=== PATIENT | female | born 1960 | race Caucasian/White ===

== ENCOUNTER → 2019-07-29 15:58 | Outpatient (CLI) | payer OTHER, SELFPAY ==
--- NOTE | 2019-07-29 | DI.RAD.S_ITS ---
PROCEDURE: XR HIP W PEL IF DONE LT MIN 4V INDICATIONS: BILATERAL HIP PAIN TECHNIQUE: AP pelvis with lateral view(s) of the left and right hip(s). COMPARISON: None. FINDINGS: Bones: No fractures or dislocations. Pelvic ring appears intact. No suspicious bony lesions. Mild bilateral hip degeneration. Lower lumbar spondylosis. Soft tissues: The visualized bowel gas pattern is normal. No suspicious soft tissue calcifications. IMPRESSION: Mild bilateral hip degeneration, probably age-appropriate. If the patient's pain or other symptoms persist, consider further evaluation with MRI . Dictated by: Danny Mccullough M.D. on 07/29/2019 at 17:14 Approved by: Danny Mccullough M.D. on 07/29/2019 at 17:16
--- NOTE | 2019-07-29 | DI.RAD.S_ITS ---
PROCEDURE: XR LUMBAR SPINE 2-3V INDICATIONS: LOWER BACK PAIN TECHNIQUE: 3 views of the lumbar spine were acquired. COMPARISON: None. FINDINGS: Bones: No fracture or focal osseous destruction. Levoscoliosis centered at L3. Multilevel degenerative endplate sclerosis and spurring. Diffuse facet arthropathy. grade 1 retrolisthesis of L2 on L3, and grade 1 anterolisthesis of L4 on L5 and L5 on S1. Diffuse moderate narrowing of lumbar disc spaces. Soft tissues: Overlying bowel gas pattern is normal. No suspicious soft tissue calcifications. IMPRESSION: Multilevel moderate lumbar spondylosis and facet arthropathy. Levoscoliosis. Dictated by: Danny Mccullough M.D. on 07/29/2019 at 16:50 Approved by: Danny Mccullough M.D. on 07/29/2019 at 16:52
== END ==
PROVIDERS: PCP Family Medicine; Visit Provider Family Medicine
DX: M25.552 Pain in left hip (principal); M25.551 Pain in right hip; M16.0 Bilateral primary osteoarthritis of hip; M54.5 Low back pain; M47.816 Spondylosis without myelopathy or radiculopathy, lumbar region; M41.86 Other forms of scoliosis, lumbar region; M43.16 Spondylolisthesis, lumbar region; M43.17 Spondylolisthesis, lumbosacral region; M48.061 Spinal stenosis, lumbar region without neurogenic claudication
CPT/HCPCS: 72100; 73522

== ENCOUNTER → 2019-11-11 15:49 | Outpatient (CLI) | payer OTHER, SELFPAY ==
--- NOTE | 2019-11-11 | DI.MG.S_ITS ---
BILATERAL DIGITAL SCREENING MAMMOGRAM 3D/2D WITH CAD: 11/11/2019 CLINICAL: Routine screening. Family history of breast cancer. Comparison is made to exams dated: 10/19/2017 mammogram, 12/15/2015 mammogram - [facility], and 05/07/2014 mammogram - [facility]. The tissue of both breasts is heterogeneously dense. This may lower the sensitivity of mammography. Current study was also evaluated with a Computer Aided Detection (CAD) system. No significant masses, calcifications, or other findings are seen in either breast. There has been no significant interval change. IMPRESSION: NEGATIVE There is no mammographic evidence of malignancy. A 1 year screening mammogram is recommended. This exam was interpreted at Station ID: [id number]. NOTE: For mammograms, a report in lay terms will be sent to the patient. Approximately 15% of breast malignancies will not be visualized mammographically. In the management of a palpable breast mass, a negative mammogram must not discourage biopsy of a clinically suspicious lesion. Electronically Signed By: Louisa beckman/brian:11/11/2019 16:17:42 letter sent: Normal Exam ACR BI-RADS Category 1: Negative [id number]
== END ==
PROVIDERS: PCP Family Medicine; Referring Provider Family Medicine; Visit Provider Family Medicine
DX: Z12.31 Encounter for screening mammogram for malignant neoplasm of breast (principal); Z80.3 Family history of malignant neoplasm of breast
CPT/HCPCS: 77063; 77067

== ENCOUNTER → 2020-07-30 13:01 | Outpatient (CLI) | payer OTHER, SELFPAY ==
--- NOTE | 2020-07-30 | DI.MRI.S_ITS ---
PROCEDURE: MR HIP LT WO CON INDICATIONS: bilat hip pain TECHNIQUE: Noncontrast coronal T1 spin echo and STIR through the bony pelvis. Coronal and axial T2 fast spin echo with fat saturation, sagittal T1 spin echo, and oblique axial T2 fast spin echo with fat saturation through the hip. COMPARISON: None. FINDINGS: Image quality: Excellent. Bones and joints: No fracture identified. Sacroiliac joints are unremarkable in signal intensity. There is lower lumbar spondylosis and facet arthropathy. No pathologic hip joint effusion. No evidence of osteonecrosis. Tendons and ligaments: The gluteus medius and minimus tendons appear intact, without associated muscle atrophy. Minimal sub trochanteric bursal fluid/edema. Proximal iliotibial band intact. Iliopsoas tendon intact. Mild hamstring origin tendinopathy, technically age indeterminate The straight and reflected heads of the rectus femoris muscle origin appear intact Ligamentum teres appears intact where visualized. Labrum: Ill-defined macerated appearance of the anterosuperior labrum, in keeping with probably chronic/degenerative tear. There is mild partial-thickness adjacent chondral loss. The alpha angle of the femur is within normal limits at less than 55 degrees. Soft tissues: There is mild thickening and T2 hyperintense appearance at the insertion of the piriformis and obturator internus muscles. Quadratus femoris muscle normal. Proximal sciatic neurovascular bundle appears normal adjacent to the hamstring tendons. No free pelvic fluid. Bladder normal. Genitourinary structures and bowel loops appear normal where visualized. IMPRESSION: Anterosuperior labral tear which could be chronic/degenerative. Age-indeterminate mild hamstring origin tendinopathy. Low-grade strain at the insertion of the left piriformis and obturator internus muscles. Minimal left subtrochanteric bursal fluid/edema. Dictated by: Danny Mccullough M.D. on 07/30/2020 at 15:02 Approved by: Danny Mccullough M.D. on 07/30/2020 at 15:25
--- NOTE | 2020-07-30 | DI.MRI.S_ITS ---
PROCEDURE: MR LUMBAR SPINE WO CON INDICATIONS: lumbar radiculopathy TECHNIQUE: Noncontrast sagittal T1 spin echo and T2 fast echo, sagittal STIR, axial T1 and T2 fast spin echo through the lumbar spine. In cases with scoliosis, additional coronal T2 fast spin echo may be performed. COMPARISON: [facility], CR, XR LUMBAR SPINE 2-3V, 07/29/2019, 16:04. FINDINGS: Image quality: Excellent. Alignment and Curvature: There is minimal leftward scoliotic curvature at L3. There is trace retrolithesis of L3 on L4, trace anterolithesis of L3 on L4, Grade I anterolithesis of L4 on L5 and Grade I/II anterolithesis of L5 on S1. Bone Marrow: Marrow is of normal overall signal. Moerate reactive endplate changes are present at L4-5 No acute vertebral body compression fractures. Spinal Cord: Conus medullaris terminates at the L1 level. Visualized cord demonstrates normal signal and size. Paraspinous Soft Tissues: No paravertebral masses. L1-L2: Mild disc bulge with left posterior paracentral protrusion. Minimal indentation of the anterior thecal sac. No foraminal narrowing. L2-L3: Mild disc bulge with mild spinal stenosis. No foraminal narrowing. Facet and ligamentum flavum hypertrophy. L3-L4: Mild disc bulge with severe spinal stenosis. Facet and ligamentum flavum hypertrophy. Severe right foraminal narrowing with slight nerve root flattening. L4-L5: Mild disc bulge with severe spinal stenosis and canal compression. Facet and ligamentum flavum hypertrophy. Severe bilateral, left greater than right foraminal narrowing with slight nerve root flattening. L5-S1: Mild disc bulge with mild spinal stenosis. Facet and ligamentum flavum hypertrophy. Severe bilateral, left greater than right foraminal narrowing with mild nerve root flattening. IMPRESSION: 1. Multilevel degenerative chnages. 2. Multilevel spinal stenosis most severe at L3-4, L4-5 secondary to anterolithesis and facet/ligamentum flavum hypertrophy. 3. Mutlilevel foraminal narrowing most severe at L3-4, L4-5, L5-S1 secondary to facet arthropathy and anterolithesis. Dictated by: Olya Contreras M.D. on 07/30/2020 at 15:52 Approved by: Olya Contreras M.D. on 07/30/2020 at 16:16
--- NOTE | 2020-07-30 | DI.MRI.S_ITS ---
PROCEDURE: MR HIP RT WO CON INDICATIONS: bilat hip pain TECHNIQUE: Noncontrast coronal T1 spin echo and STIR through the bony pelvis. Coronal and axial T2 fast spin echo with fat saturation, sagittal T1 spin echo, and oblique axial T2 fast spin echo with fat saturation through the hip. COMPARISON: None. FINDINGS: Image quality: Excellent. Bones and joints: No fracture identified. Sacroiliac joints are unremarkable in signal intensity. There is lower lumbar spondylosis and facet arthropathy. No pathologic hip joint effusion. No evidence of osteonecrosis. Tendons and ligaments: The gluteus medius and minimus tendons appear intact, without associated muscle atrophy. Proximal iliotibial band intact. Iliopsoas tendon intact. Origin of the hamstring tendon is thickened and demonstrates T2 hyperintensity. The straight and reflected heads of the rectus femoris muscle origin appear intact Ligamentum teres appears intact where visualized. Labrum: Poorly defined macerated tear involving the anterosuperior and superior labrum. There is adjacent paralabral cyst measuring 7 mm seen on image 11/14 adjacent to the superior segment. There is adjacent partial-thickness chondral loss, subchondral sclerosis and spurring. The alpha angle of the femur is within normal limits at less than 55 degrees. Soft tissues: Visualized muscles demonstrate normal bulk and internal signal. Quadratus femoris muscle normal. Proximal sciatic neurovascular bundle appears normal adjacent to the hamstring tendons. No free pelvic fluid. Bladder normal. Genitourinary structures and bowel loops appear normal where visualized. IMPRESSION: Ill-defined anterosuperior labral tear with associated paralabral cyst. Age-indeterminate mild hamstring origin tendinopathy Dictated by: Danny Mccullough M.D. on 07/30/2020 at 14:52 Approved by: Danny Mccullough M.D. on 07/30/2020 at 15:02
== END ==
PROVIDERS: PCP Student in an Organized Health Care Education/Training Program; Referring Provider Family Medicine; Visit Provider Family Medicine
DX: M25.551 Pain in right hip (principal); M25.552 Pain in left hip; S73.191A Other sprain of right hip, initial encounter; S73.192A Other sprain of left hip, initial encounter; M25.851 Other specified joint disorders, right hip; M47.26 Other spondylosis with radiculopathy, lumbar region; M47.27 Other spondylosis with radiculopathy, lumbosacral region; M48.061 Spinal stenosis, lumbar region without neurogenic claudication; M48.07 Spinal stenosis, lumbosacral region; M43.16 Spondylolisthesis, lumbar region; M43.17 Spondylolisthesis, lumbosacral region
CPT/HCPCS: 72148; 73721

== ENCOUNTER 2020-09-01 15:15 | Outpatient (RCR) | payer OTHER, SELFPAY ==
--- NOTE | 2019-08-21 15:30 | PT.OIE ---
Current Diagnoses Osteoarthritis of hip, unspecified (08/21/19) Pain in right hip (08/21/19) Pain in left hip (08/21/19) Intervertebral disc disorders with myelopathy, lumbar region (08/21/19) Lumbago with sciatica, unspecified side (08/21/19) Visit Care Team Role Provider Type Jersey Price MD Attending Provider Physician Primary Care Provider Specialty: Family Practice Address: [address] [place] [address], [facility] [place], [place], [facility] Email: [email or web address] Physical Therapy Initial Evaluation PT-OP-A Visit Information Start: 08/21/19 15:30 Freq: Status: Active Protocol: Document 08/21/19 15:30 DCW (Rec: 08/21/19 17:32 DCW [id number]) Out-Patient Physical Therapy Visit Information Visit Information Visit Type Initial Evaluation Visit Start Time 13:45 Visit Stop Time 14:30 Total Visit Minutes 45 Visit Number 1 Number of CLINICAL LAB SPECIALIST Visits 0 Evaluation Information Evaluation Date 08/21/19 PT-OP-B Current Condition Start: 08/21/19 15:30 Freq: Status: Active Protocol: Document 08/21/19 15:30 DCW (Rec: 08/21/19 17:32 DCW [id number]) Current Condition History of Current Condition Onset Date Multi-year history Current Complaints low back and bilateral hip pain History of Current Condition Pt is a 58 year old female with a long history of low back and hip pain. Pt reports she has twice had a partial dislocation of her right hip, happening once in the 90s and once in the last decade. 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 Pt notes that this caused so much degeneration in my knees that when I was in my 30s, I couldn't go up and down stairs. Pt reports that since beginning Glucosamine and chondroitin, this has faded, and she is more mobile. She has recently been suffering an increase in bilateral posterior hip pain, especially with extended sitting, or trying to stand up after extended sitting. Pt also reports burning in the back of her hips, L>R. Pt reports that her PCP recently increased her Celebrex, which helped some, but just this past weekend, took a ferry to [place], and after sitting/ lying down for the trip, could barely walk off the ferry she was so stiff and sore. She is currently feeling improved, but everything just feels so tight. Prior Treatments and Tests Hip x-ray: IMPRESSION: Mild bilateral hip degeneration, probably age-appropriate. If the patient's pain or other symptoms persist, consider further evaluation with MRI. Per: Danny Mccullough M.D. on 08/2019 Lumbar x-ray: IMPRESSION: Multilevel moderate lumbar spondylosis and facet arthropathy. Levoscoliosis. Per: Danny Mccullough M.D. on 08/2019 Future Testing and Treatments Planned Possible further evaluation with MRI, per radiologist report PT-OP-C Subjective Start: 08/21/19 15:30 Freq: Status: Active Protocol: Document 08/21/19 15:30 DCW (Rec: 08/21/19 17:32 DCW [id number]) OP-PT Subjective Patient Comments Patient Comments It's more in the back of my hips than in my actual back. OP-PT Pain Assessment Pain Assessment Grid Paper Pain Assessment Grid Completed Yes Location Bilateral Posterior Lateral Hip Intensity 7 Scale Used Numeric (1 - 10) Description Burning,Sharp Description- Other Pain varies from 2-7/10 PT-OP-F Manual Assessment Start: 08/21/19 15:30 Freq: Status: Active Protocol: Document 08/21/19 15:30 DCW (Rec: 08/21/19 17:32 DCW [id number]) Manual Assessments Soft Tissue Assessment Soft Tissue Mobility Assessment Tenderness to palpation 2/4 - Pain with wincing: Bilateral QL, bilateral ITB, right hip adductors Tenderness to palpation 3/4 - Wincing and withdraw: Bilateral piriformis, bilateral psoas Moderate-sever tone along bilateral posterior, lateral, and anterior hips, L>R Joint Mobility Assessment Joint Mobility Assessment Apprehension on R with RAMONA, some clunking and report of pain with right labral grind test PT-OP-K Range of Motion Start: 08/21/19 15:30 Freq: Status: Active Protocol: Document 08/21/19 15:30 DCW (Rec: 08/21/19 17:32 DCW [id number]) Lumbar Spine Range of Motion Lumbar Spine Active Degrees Testing Position Standing Flexion 60 Extension 16 ROM Limitations Soft Tissue Tightness,Muscle Tone,Pain PT-OP-L Special Tests Start: 08/21/19 15:30 Freq: Status: Active Protocol: Document 08/21/19 15:30 DCW (Rec: 08/21/19 17:32 DCW [id number]) Special Tests Lumbar Spine Special Tests A-P Shearing Test Results Negative Standing Flexion Test Results Negative Straight Leg Raise Test Results Negative Slump Test Results Negative Manual Traction Test Results Negative Compression Test Results Negative Hip Special Tests Lateral SI Compression Test Results Negative Piriformis Test Results Positive bilaterally RAMONA Test Results Positive ipsilateral pain left , sudden severe apprehension on R PT-OP-M Strength Start: 08/21/19 15:30 Freq: Status: Active Protocol: Document 08/21/19 15:30 DCW (Rec: 08/21/19 17:32 DCW [id number]) Knee Strength Knee Manual Muscle Testing Bilateral Comments All LE MMT 5/5 bilaterally except: Left knee flexion 4-/5 PT-OP-Q Treatments Start: 08/21/19 15:30 Freq: Status: Active Protocol: Document 08/21/19 15:30 DCW (Rec: 08/21/19 17:32 DCW [id number]) Therapeutic Exercises Supine Exercises 1 Supine Exercise Name Piriformis stretch: Figure-4, [id number] shoulder Side bilateral PT-OP-T Assessment and Plan Start: 08/21/19 15:30 Freq: Status: Active Protocol: Document 08/21/19 15:30 DCW (Rec: 08/22/19 08:49 DCW [id number]) Physical Therapy Assessment Rehab Potential Rehabilitation Potential Good Evaluation Complexity Number of Personal Factors/Comorbidities 1-2 Number of Body Systems Impaired 3 Clinical Presentation at Evaluation Evolving Impairments Impairments Activity Tolerance,Functional Activities,Pain,ROM,Strength, Tone Goals Three Impairment Pt unable to go out dancing with her Care Home Goal (LTG) Pt to tolerate dancing for 45 minutes without increasing her pain LTG Duration 10/23/19 Two Impairment Pt unable to sit in her car longer than 20 minutes without severe pain Grinder Set Up Operator Jig Goal (LTG) Pt to tolerate sitting in her car for 60 minutes with pain < 4/10 LTG Duration 10/23/19 One Impairment Pt does not have an appropriate HEP Short Term Goal (STG) Pt to be independent and compliant with an appropriate HEP STG Duration 09/22/19 Assessment Summary Assessment Pt presents to her physical therapy evaluation with moderate-severe hypertonia in her piriformis, QL, psoas, and ITB bilaterally. 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 Additionally, pt has multilevel moderate lumbar spondylosis and facet arthropathy, as well as levoscoliosis, per her lumbar x-rays. Pt's pain complaints and radicular symptoms appear to be more consistent with piriformis syndrome, however this piriformis tightness is likely a secondary effect from her hip and lumbar disorders. Stabilizing her hips and lumbar spine with hip and core strengthening, as well as using STM to decrease piriformis, psoas, QL, and ITB tone, should help improve pt' s ability to tolerate sitting for increased periods of time and allow her to return to dancing. There is some concern , however that with her history of dislocation, and her positive apprehension and labral grind tests, that there may be some underlying damage to her right labrum. If pt does not respond well to conservative treatment, she may benefit in the future from an MRI to assess integrity of her right hip. Physical Therapy Plan Frequency and Duration Frequency of Treatment 2x/Week Duration of Treatment 12 weeks Plan of Care Start Date 08/21/19 Plan of Care End Date 11/13/19 Therapeutic Interventions Therapeutic Interventions Aquatic Therapy,Home Exercise Program,Joint Mobilizations, Manual Therapy,Patient/ Caregiver Education,Self-Care/ Home Management,Soft Tissue Mobilization,Therapeutic Activities,Therapeutic Exercises Modalities Cold Pack/Ice Massage,Electric Stimulation,Hot Packs, Traction- Mechanical, Ultrasound Next Visit Focus/Plan Next Note Type Treatment Note Next Visit Plan Flexibility, STM, manual traction
--- NOTE | 2019-08-25 13:00 | PT.OTN ---
Current Diagnoses Osteoarthritis of hip, unspecified (08/25/19) Pain in right hip (08/25/19) Pain in left hip (08/25/19) Intervertebral disc disorders with myelopathy, lumbar region (08/25/19) Lumbago with sciatica, unspecified side (08/25/19) Physical Therapy Treatment Note PT-OP-A Visit Information Start: 08/21/19 15:30 Freq: Status: Active Protocol: Document 08/25/19 12:18 SP (Rec: 08/25/19 16:02 SP [id number]) Out-Patient Physical Therapy Visit Information Visit Information Visit Type Treatment Note Visit Start Time 12:18 Visit Stop Time 13:00 Total Visit Minutes 42 Visit Number 2 Number of TOOL DIE MAKER Visits 1 PT-OP-B Current Condition Start: 08/21/19 15:30 Freq: Status: Active Protocol: Document 08/21/19 15:30 DCW (Rec: 08/21/19 17:32 DCW [id number]) Current Condition History of Current Condition Onset Date Multi-year history Current Complaints low back and bilateral hip pain History of Current Condition Pt is a 58 year old female with a long history of low back and hip pain. Pt reports she has twice had a partial dislocation of her right hip, happening once in the 90s and once in the last decade. 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 Pt notes that this caused so much degeneration in my knees that when I was in my 30s, I couldn't go up and down stairs. Pt reports that since beginning Glucosamine and chondroitin, this has faded, and she is more mobile. She has recently been suffering an increase in bilateral posterior hip pain, especially with extended sitting, or trying to stand up after extended sitting. Pt also reports burning in the back of her hips, L>R. Pt reports that her PCP recently increased her Celebrex, which helped some, but just this past weekend, took a ferry to [place], and after sitting/ lying down for the trip, could barely walk off the ferry she was so stiff and sore. She is currently feeling improved, but everything just feels so tight. Prior Treatments and Tests Hip x-ray: IMPRESSION: Mild bilateral hip degeneration, probably age-appropriate. If the patient's pain or other symptoms persist, consider further evaluation with MRI. Per: Danny Mccullough M.D. on 08/2019 Lumbar x-ray: IMPRESSION: Multilevel moderate lumbar spondylosis and facet arthropathy. Levoscoliosis. Per: Danny Mccullough M.D. on 08/2019 Future Testing and Treatments Planned Possible further evaluation with MRI, per radiologist report PT-OP-C Subjective Start: 08/21/19 15:30 Freq: Status: Active Protocol: Document 08/25/19 12:18 SP (Rec: 08/25/19 16:02 SP [id number]) OP-PT Subjective Patient Comments Patient Comments Pt stated isn't in as much pain pre PT, trialed cold shower head over LB pre PT and noted decreased pain 2/10 currently. PT-OP-F Manual Assessment Start: 08/21/19 15:30 Freq: Status: Active Protocol: Document 08/21/19 15:30 DCW (Rec: 08/21/19 17:32 DCW [id number]) Manual Assessments Soft Tissue Assessment Soft Tissue Mobility Assessment Tenderness to palpation 2/4 - Pain with wincing: Bilateral QL, bilateral ITB, right hip adductors Tenderness to palpation 3/4 - Wincing and withdraw: Bilateral piriformis, bilateral psoas Moderate-sever tone along bilateral posterior, lateral, and anterior hips, L>R Joint Mobility Assessment Joint Mobility Assessment Apprehension on R with RAMONA, some clunking and report of pain with right labral grind test PT-OP-K Range of Motion Start: 08/21/19 15:30 Freq: Status: Active Protocol: Document 08/21/19 15:30 DCW (Rec: 08/21/19 17:32 DCW [id number]) Lumbar Spine Range of Motion Lumbar Spine Active Degrees Testing Position Standing Flexion 60 Extension 16 ROM Limitations Soft Tissue Tightness,Muscle Tone,Pain PT-OP-L Special Tests Start: 08/21/19 15:30 Freq: Status: Active Protocol: Document 08/21/19 15:30 DCW (Rec: 08/21/19 17:32 DCW [id number]) Special Tests Lumbar Spine Special Tests A-P Shearing Test Results Negative Standing Flexion Test Results Negative Straight Leg Raise Test Results Negative Slump Test Results Negative Manual Traction Test Results Negative Compression Test Results Negative Hip Special Tests Lateral SI Compression Test Results Negative Piriformis Test Results Positive bilaterally RAMONA Test Results Positive ipsilateral pain left , sudden severe apprehension on R PT-OP-M Strength Start: 08/21/19 15:30 Freq: Status: Active Protocol: Document 08/21/19 15:30 DCW (Rec: 08/21/19 17:32 DCW [id number]) Knee Strength Knee Manual Muscle Testing Bilateral Comments All LE MMT 5/5 bilaterally except: Left knee flexion 4-/5 PT-OP-Q Treatments Start: 08/21/19 15:30 Freq: Status: Active Protocol: Document 08/25/19 12:18 SP (Rec: 08/25/19 16:02 SP [id number]) Therapeutic Exercises Supine Exercises single knee fall out Side bilateral Reps/Minutes 5 times x2 each side Comments cued slow pacing control with stable pelvis pelvic tilt/ neutral pelvis Reps/Minutes 5 sec hold x5 trans ab Supine Exercise Name drawing in trans ab Reps/Minutes 5 sec x10 Comments slow activation concentric/ eccentric facilitation 1 Supine Exercise Name Piriformis stretch: Figure-4, [id number] shoulder Side bilateral Reps/Minutes 60 Sitting Exercises PF stretch Sitting Exercise Name Piriformis stretch: Figure-4, [id number] shoulder Side bilateral Reps/Minutes 30 x2 Manual Therapy Treatment Soft Tissue Mobilization PF, glut med Body Location R>L Mobilization Type Cross-Friction,Sustained Pressure Intensity/Depth Moderate Body Position Sidelying Comments tolerated, warmed up area Joint Mobilizations R hip Direction inf/lat Grade II Body Position Supine Reps/Duration 2 min Comments tolerated good stretch PT-OP-T Assessment and Plan Start: 08/21/19 15:30 Freq: Status: Active Protocol: Document 08/25/19 12:18 SP (Rec: 08/25/19 16:02 SP [id number]) Physical Therapy Assessment Goals Three Impairment Pt unable to go out dancing with her Long-Term Goal (LTG) Pt to tolerate dancing for 45 minutes without increasing her pain LTG Duration 10/23/19 Two Impairment Pt unable to sit in her car longer than 20 minutes without severe pain Kettle Tender Goal (LTG) Pt to tolerate sitting in her car for 60 minutes with pain < 4/10 LTG Duration 10/23/19 One Impairment Pt does not have an appropriate HEP Short Term Goal (STG) Pt to be independent and compliant with an appropriate HEP STG Duration 09/22/19 Assessment Summary Assessment Tx focused on manual STMs, hip mobs and introduced core facilitation with neutral spine with cuing for proper form, no adverse reactions feels warmed up, not as cooled off as when arrived but not pain. TOOL DIE MAKER stated will leave time end of tx for cold modality if needed knowing good response at home when trialed. Provided hand outs for self recall. Physical Therapy Plan Frequency and Duration Frequency of Treatment 2x/Week Duration of Treatment 12 weeks Plan of Care Start Date 08/21/19 Plan of Care End Date 11/13/19 Therapeutic Interventions Therapeutic Interventions Aquatic Therapy,Home Exercise Program,Joint Mobilizations, Manual Therapy,Patient/ Caregiver Education,Self-Care/ Home Management,Soft Tissue Mobilization,Therapeutic Activities,Therapeutic Exercises Modalities Cold Pack/Ice Massage,Electric Stimulation,Hot Packs, Traction- Mechanical, Ultrasound Next Visit Focus/Plan Next Note Type Treatment Note Next Visit Plan Assess response to manual and initial HEP added last tx. Add self ball roll PF at wall. Continue per PT POC: Flexibility, STM, manual traction
--- NOTE | 2019-08-27 11:15 | PT.OTN ---
Current Diagnoses Osteoarthritis of hip, unspecified (08/27/19) Pain in right hip (08/27/19) Pain in left hip (08/27/19) Intervertebral disc disorders with myelopathy, lumbar region (08/27/19) Lumbago with sciatica, unspecified side (08/27/19) Physical Therapy Treatment Note PT-OP-A Visit Information Start: 08/21/19 15:30 Freq: Status: Active Protocol: Document 08/27/19 10:34 SP (Rec: 08/27/19 11:23 SP [id number]) Out-Patient Physical Therapy Visit Information Visit Information Visit Type Treatment Note Visit Start Time 10:34 Visit Stop Time 11:15 Total Visit Minutes 41 Visit Number 3 Number of LAST PATTERN GRADER Visits 2 PT-OP-B Current Condition Start: 08/21/19 15:30 Freq: Status: Active Protocol: Document 08/21/19 15:30 DCW (Rec: 08/21/19 17:32 DCW [id number]) Current Condition History of Current Condition Onset Date Multi-year history Current Complaints low back and bilateral hip pain History of Current Condition Pt is a 58 year old female with a long history of low back and hip pain. Pt reports she has twice had a partial dislocation of her right hip, happening once in the 90s and once in the last decade. 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 Pt notes that this caused so much degeneration in my knees that when I was in my 30s, I couldn't go up and down stairs. Pt reports that since beginning Glucosamine and chondroitin, this has faded, and she is more mobile. She has recently been suffering an increase in bilateral posterior hip pain, especially with extended sitting, or trying to stand up after extended sitting. Pt also reports burning in the back of her hips, L>R. Pt reports that her PCP recently increased her Celebrex, which helped some, but just this past weekend, took a ferry to [place], and after sitting/ lying down for the trip, could barely walk off the ferry she was so stiff and sore. She is currently feeling improved, but everything just feels so tight. Prior Treatments and Tests Hip x-ray: IMPRESSION: Mild bilateral hip degeneration, probably age-appropriate. If the patient's pain or other symptoms persist, consider further evaluation with MRI. Per: Danny Mccullough M.D. on 08/2019 Lumbar x-ray: IMPRESSION: Multilevel moderate lumbar spondylosis and facet arthropathy. Levoscoliosis. Per: Danny Mccullough M.D. on 08/2019 Future Testing and Treatments Planned Possible further evaluation with MRI, per radiologist report PT-OP-C Subjective Start: 08/21/19 15:30 Freq: Status: Active Protocol: Document 08/27/19 10:34 SP (Rec: 08/27/19 11:23 SP [id number]) OP-PT Subjective Patient Comments Patient Comments Pt stated no adverse reactions to last tx, incorporating HEP instructed last tx. Pt stated was able to go for a walk with slight incline/descline train at park but did not do the hills. PT-OP-F Manual Assessment Start: 08/21/19 15:30 Freq: Status: Active Protocol: Document 08/21/19 15:30 DCW (Rec: 08/21/19 17:32 DCW [id number]) Manual Assessments Soft Tissue Assessment Soft Tissue Mobility Assessment Tenderness to palpation 2/4 - Pain with wincing: Bilateral QL, bilateral ITB, right hip adductors Tenderness to palpation 3/4 - Wincing and withdraw: Bilateral piriformis, bilateral psoas Moderate-sever tone along bilateral posterior, lateral, and anterior hips, L>R Joint Mobility Assessment Joint Mobility Assessment Apprehension on R with RAMONA, some clunking and report of pain with right labral grind test PT-OP-K Range of Motion Start: 08/21/19 15:30 Freq: Status: Active Protocol: Document 08/21/19 15:30 DCW (Rec: 08/21/19 17:32 DCW [id number]) Lumbar Spine Range of Motion Lumbar Spine Active Degrees Testing Position Standing Flexion 60 Extension 16 ROM Limitations Soft Tissue Tightness,Muscle Tone,Pain PT-OP-L Special Tests Start: 08/21/19 15:30 Freq: Status: Active Protocol: Document 08/21/19 15:30 DCW (Rec: 08/21/19 17:32 DCW [id number]) Special Tests Lumbar Spine Special Tests A-P Shearing Test Results Negative Standing Flexion Test Results Negative Straight Leg Raise Test Results Negative Slump Test Results Negative Manual Traction Test Results Negative Compression Test Results Negative Hip Special Tests Lateral SI Compression Test Results Negative Piriformis Test Results Positive bilaterally RAMONA Test Results Positive ipsilateral pain left , sudden severe apprehension on R PT-OP-M Strength Start: 08/21/19 15:30 Freq: Status: Active Protocol: Document 08/21/19 15:30 DCW (Rec: 08/21/19 17:32 DCW [id number]) Knee Strength Knee Manual Muscle Testing Bilateral Comments All LE MMT 5/5 bilaterally except: Left knee flexion 4-/5 PT-OP-Q Treatments Start: 08/21/19 15:30 Freq: Status: Active Protocol: Document 08/27/19 10:34 SP (Rec: 08/27/19 11:23 SP [id number]) Cardio Equipment Recumbent Bicycle Duration (Minutes) 6 Resistance 6 Seat Position 4 Therapeutic Exercises Supine Exercises Bryce stretch Side bilateral Reps/Minutes 30 x3 SLR Side bilateral Reps/Minutes 2x10 single knee fall out Side bilateral Resistance #1 TB Reps/Minutes AROM x10, TB 10 x2 each side Comments cued slow pacing control with stable pelvis pelvic tilt/ neutral pelvis Reps/Minutes 5 sec hold x5 Other Exercises self STM ball roll to TFL, GLUT Side left Equipment Used at wall Reps/Minutes 2 min PT-OP-T Assessment and Plan Start: 08/21/19 15:30 Freq: Status: Active Protocol: Document 08/27/19 10:34 SP (Rec: 08/27/19 11:23 SP [id number]) Physical Therapy Assessment Goals Three Impairment Pt unable to go out dancing with her Aerobics Teacher Goal (LTG) Pt to tolerate dancing for 45 minutes without increasing her pain LTG Duration 10/23/19 Two Impairment Pt unable to sit in her car longer than 20 minutes without severe pain Mcfp Goal (LTG) Pt to tolerate sitting in her car for 60 minutes with pain < 4/10 LTG Duration 10/23/19 One Impairment Pt does not have an appropriate HEP Short Term Goal (STG) Pt to be independent and compliant with an appropriate HEP STG Duration 09/22/19 Assessment Summary Assessment Tx focused on HEP review, added increased resistance to knee fall out and AROM SLR with cuing for core stability and progress in hip strengthening. Pt tolerated self STMs to TFL and PF at wall with tennis ball and Bryce stretch R>L secondary to little pinching anterior R hip during figure 4. Good response to treatment today, less tightness and able to move better than when arrived today. Physical Therapy Plan Frequency and Duration Frequency of Treatment 2x/Week Duration of Treatment 12 weeks Plan of Care Start Date 08/21/19 Plan of Care End Date 11/13/19 Therapeutic Interventions Therapeutic Interventions Aquatic Therapy,Home Exercise Program,Joint Mobilizations, Manual Therapy,Patient/ Caregiver Education,Self-Care/ Home Management,Soft Tissue Mobilization,Therapeutic Activities,Therapeutic Exercises Modalities Cold Pack/Ice Massage,Electric Stimulation,Hot Packs, Traction- Mechanical, Ultrasound Next Visit Focus/Plan Next Note Type Treatment Note Next Visit Plan Assess response to added TB to knee fall out, SLR, Bryce stretch and self ball roll PF at wall added last tx. Continue per PT POC: Flexibility, STM, manual traction
--- NOTE | 2019-09-01 08:15 | PT.OTN ---
Current Diagnoses Osteoarthritis of hip, unspecified (09/01/19) Pain in right hip (09/01/19) Pain in left hip (09/01/19) Intervertebral disc disorders with myelopathy, lumbar region (09/01/19) Lumbago with sciatica, unspecified side (09/01/19) Physical Therapy Treatment Note PT-OP-A Visit Information Start: 08/21/19 15:30 Freq: Status: Active Protocol: Document 09/01/19 07:31 SP (Rec: 09/01/19 09:24 SP [id number]) Out-Patient Physical Therapy Visit Information Visit Information Visit Type Treatment Note Visit Start Time 07:31 Visit Stop Time 08:15 Total Visit Minutes 44 Visit Number 4 Number of GYPSUM BLOCK SETTER Visits 3 PT-OP-B Current Condition Start: 08/21/19 15:30 Freq: Status: Active Protocol: Document 08/21/19 15:30 DCW (Rec: 08/21/19 17:32 DCW [id number]) Current Condition History of Current Condition Onset Date Multi-year history Current Complaints low back and bilateral hip pain History of Current Condition Pt is a 58 year old female with a long history of low back and hip pain. Pt reports she has twice had a partial dislocation of her right hip, happening once in the 90s and once in the last decade. 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 Pt notes that this caused so much degeneration in my knees that when I was in my 30s, I couldn't go up and down stairs. Pt reports that since beginning Glucosamine and chondroitin, this has faded, and she is more mobile. She has recently been suffering an increase in bilateral posterior hip pain, especially with extended sitting, or trying to stand up after extended sitting. Pt also reports burning in the back of her hips, L>R. Pt reports that her PCP recently increased her Celebrex, which helped some, but just this past weekend, took a ferry to [place], and after sitting/ lying down for the trip, could barely walk off the ferry she was so stiff and sore. She is currently feeling improved, but everything just feels so tight. Prior Treatments and Tests Hip x-ray: IMPRESSION: Mild bilateral hip degeneration, probably age-appropriate. If the patient's pain or other symptoms persist, consider further evaluation with MRI. Per: Danny Mccullough M.D. on 08/2019 Lumbar x-ray: IMPRESSION: Multilevel moderate lumbar spondylosis and facet arthropathy. Levoscoliosis. Per: Danny Mccullough M.D. on 08/2019 Future Testing and Treatments Planned Possible further evaluation with MRI, per radiologist report PT-OP-C Subjective Start: 08/21/19 15:30 Freq: Status: Active Protocol: Document 09/01/19 07:31 SP (Rec: 09/01/19 09:24 SP [id number]) OP-PT Subjective Patient Comments Patient Comments Pt stated was able to get out of bed last night for the first time with much less L hip pain but dog slept lower in the bed. Pt stated using 2 min cold end of shower on LB to assist decrease LBP first thing in the am. Pt stated went to see a performance and needed to get up and move around, could drive little further 30 min before needing to stopping on way to performance stretch/loosen up breaking up the drive. Pt was able to warm up pre PT today at home. PT-OP-F Manual Assessment Start: 08/21/19 15:30 Freq: Status: Active Protocol: Document 08/21/19 15:30 DCW (Rec: 08/21/19 17:32 DCW [id number]) Manual Assessments Soft Tissue Assessment Soft Tissue Mobility Assessment Tenderness to palpation 2/4 - Pain with wincing: Bilateral QL, bilateral ITB, right hip adductors Tenderness to palpation 3/4 - Wincing and withdraw: Bilateral piriformis, bilateral psoas Moderate-sever tone along bilateral posterior, lateral, and anterior hips, L>R Joint Mobility Assessment Joint Mobility Assessment Apprehension on R with RAMONA, some clunking and report of pain with right labral grind test PT-OP-K Range of Motion Start: 08/21/19 15:30 Freq: Status: Active Protocol: Document 08/21/19 15:30 DCW (Rec: 08/21/19 17:32 DCW [id number]) Lumbar Spine Range of Motion Lumbar Spine Active Degrees Testing Position Standing Flexion 60 Extension 16 ROM Limitations Soft Tissue Tightness,Muscle Tone,Pain PT-OP-L Special Tests Start: 08/21/19 15:30 Freq: Status: Active Protocol: Document 08/21/19 15:30 DCW (Rec: 08/21/19 17:32 DCW [id number]) Special Tests Lumbar Spine Special Tests A-P Shearing Test Results Negative Standing Flexion Test Results Negative Straight Leg Raise Test Results Negative Slump Test Results Negative Manual Traction Test Results Negative Compression Test Results Negative Hip Special Tests Lateral SI Compression Test Results Negative Piriformis Test Results Positive bilaterally RAMONA Test Results Positive ipsilateral pain left , sudden severe apprehension on R PT-OP-M Strength Start: 08/21/19 15:30 Freq: Status: Active Protocol: Document 08/21/19 15:30 DCW (Rec: 08/21/19 17:32 DCW [id number]) Knee Strength Knee Manual Muscle Testing Bilateral Comments All LE MMT 5/5 bilaterally except: Left knee flexion 4-/5 PT-OP-Q Treatments Start: 08/21/19 15:30 Freq: Status: Active Protocol: Document 09/01/19 07:31 SP (Rec: 09/01/19 09:24 SP [id number]) Therapeutic Exercises Supine Exercises bridge hip abd Resistance TB #1 Reps/Minutes 2x10 Bryce stretch Side bilateral Reps/Minutes 30 x3 SLR Side bilateral Reps/Minutes 2x10 1 Supine Exercise Name Piriformis stretch: Figure-4, [id number] shoulder Side bilateral Reps/Minutes 60 Standing Exercises hip elevation Standing Exercise Name hip hike elevation w/ hip abd Resistance AROM Reps/Minutes 5 Comments 2x5 Other Exercises self STM ball roll to TFL, GLUT Other Exercise Name glut, PF, QL Side left Equipment Used at wall Reps/Minutes 3 min Manual Therapy Treatment Soft Tissue Mobilization PF, glut med Body Location R>L Mobilization Type Cross-Friction,Sustained Pressure Intensity/Depth Moderate Body Position Sidelying Joint Mobilizations R hip Direction inf/lat Grade II Body Position Supine Reps/Duration 2 min Comments tolerated good stretch PT-OP-T Assessment and Plan Start: 08/21/19 15:30 Freq: Status: Active Protocol: Document 09/01/19 07:31 SP (Rec: 09/01/19 09:24 SP [id number]) Physical Therapy Assessment Goals Three Impairment Pt unable to go out dancing with her Mcfp Goal (LTG) Pt to tolerate dancing for 45 minutes without increasing her pain LTG Duration 2/6/20 Two Impairment Pt unable to sit in her car longer than 20 minutes without severe pain Mcfp Goal (LTG) Pt to tolerate sitting in her car for 60 minutes with pain < 4/10 LTG Duration 10/23/19 One Impairment Pt does not have an appropriate HEP Short Term Goal (STG) Pt to be independent and compliant with an appropriate HEP STG Duration 09/22/19 Assessment Summary Assessment Tx focused on HEP review, progressed bridge/hip abd TB from SKFO and hip elevation off step with report of muscle achy tiring but tolerable. Reviewed self STM to L QL/ glut for relief and positive response today. Good response to hip mobs, not as tight walking around end of tx. Physical Therapy Plan Frequency and Duration Frequency of Treatment 2x/Week Duration of Treatment 12 weeks Plan of Care Start Date 08/21/19 Plan of Care End Date 11/13/19 Therapeutic Interventions Therapeutic Interventions Aquatic Therapy,Home Exercise Program,Joint Mobilizations, Manual Therapy,Patient/ Caregiver Education,Self-Care/ Home Management,Soft Tissue Mobilization,Therapeutic Activities,Therapeutic Exercises Modalities Cold Pack/Ice Massage,Electric Stimulation,Hot Packs, Traction- Mechanical, Ultrasound Next Visit Focus/Plan Next Note Type Treatment Note Next Visit Plan Assess response to progressed hip strengthening: bridge and hip abd TB and hip hike elevation added last tx and self STM with ball at wall. Next tx add gym shuttle recovery, elliptical has at home to add to HEP. Continue per PT POC: Flexibility, STM, manual traction
--- NOTE | 2019-09-03 16:41 | PT.OTN ---
Current Diagnoses Osteoarthritis of hip, unspecified (09/03/19) Pain in right hip (09/03/19) Pain in left hip (09/03/19) Intervertebral disc disorders with myelopathy, lumbar region (09/03/19) Lumbago with sciatica, unspecified side (09/03/19) Physical Therapy Treatment Note PT-OP-A Visit Information Start: 08/21/19 15:30 Freq: Status: Active Protocol: Document 09/03/19 15:16 HH (Rec: 09/03/19 16:41 HH [id number]) Out-Patient Physical Therapy Visit Information Visit Information Visit Type Treatment Note Visit Start Time 15:16 Visit Stop Time 15:58 Total Visit Minutes 43 Visit Number 5 Number of PRUNER Visits 0 PT-OP-B Current Condition Start: 08/21/19 15:30 Freq: Status: Active Protocol: Document 08/21/19 15:30 DCW (Rec: 08/21/19 17:32 DCW [id number]) Current Condition History of Current Condition Onset Date Multi-year history Current Complaints low back and bilateral hip pain History of Current Condition Pt is a 58 year old female with a long history of low back and hip pain. Pt reports she has twice had a partial dislocation of her right hip, happening once in the 90s and once in the last decade. 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 Pt notes that this caused so much degeneration in my knees that when I was in my 30s, I couldn't go up and down stairs. Pt reports that since beginning Glucosamine and chondroitin, this has faded, and she is more mobile. She has recently been suffering an increase in bilateral posterior hip pain, especially with extended sitting, or trying to stand up after extended sitting. Pt also reports burning in the back of her hips, L>R. Pt reports that her PCP recently increased her Celebrex, which helped some, but just this past weekend, took a ferry to [place], and after sitting/ lying down for the trip, could barely walk off the ferry she was so stiff and sore. She is currently feeling improved, but everything just feels so tight. Prior Treatments and Tests Hip x-ray: IMPRESSION: Mild bilateral hip degeneration, probably age-appropriate. If the patient's pain or other symptoms persist, consider further evaluation with MRI. Per: Danny Mccullough M.D. on 08/2019 Lumbar x-ray: IMPRESSION: Multilevel moderate lumbar spondylosis and facet arthropathy. Levoscoliosis. Per: Danny Mccullough M.D. on 08/2019 Future Testing and Treatments Planned Possible further evaluation with MRI, per radiologist report PT-OP-C Subjective Start: 08/21/19 15:30 Freq: Status: Active Protocol: Document 09/03/19 15:16 HH (Rec: 09/03/19 16:41 HH [id number]) OP-PT Subjective Patient Comments Patient Comments Angeline been able to move as one unit to get out of bed without much hip pain. Angeline been consistent with home exercises and i am ready to learn some new ones. Patient Reported Progress Improving PT-OP-F Manual Assessment Start: 08/21/19 15:30 Freq: Status: Active Protocol: Document 08/21/19 15:30 DCW (Rec: 08/21/19 17:32 DCW [id number]) Manual Assessments Soft Tissue Assessment Soft Tissue Mobility Assessment Tenderness to palpation 2/4 - Pain with wincing: Bilateral QL, bilateral ITB, right hip adductors Tenderness to palpation 3/4 - Wincing and withdraw: Bilateral piriformis, bilateral psoas Moderate-sever tone along bilateral posterior, lateral, and anterior hips, L>R Joint Mobility Assessment Joint Mobility Assessment Apprehension on R with RAMONA, some clunking and report of pain with right labral grind test PT-OP-K Range of Motion Start: 08/21/19 15:30 Freq: Status: Active Protocol: Document 08/21/19 15:30 DCW (Rec: 08/21/19 17:32 DCW [id number]) Lumbar Spine Range of Motion Lumbar Spine Active Degrees Testing Position Standing Flexion 60 Extension 16 ROM Limitations Soft Tissue Tightness,Muscle Tone,Pain PT-OP-L Special Tests Start: 08/21/19 15:30 Freq: Status: Active Protocol: Document 08/21/19 15:30 DCW (Rec: 08/21/19 17:32 DCW [id number]) Special Tests Lumbar Spine Special Tests A-P Shearing Test Results Negative Standing Flexion Test Results Negative Straight Leg Raise Test Results Negative Slump Test Results Negative Manual Traction Test Results Negative Compression Test Results Negative Hip Special Tests Lateral SI Compression Test Results Negative Piriformis Test Results Positive bilaterally RAMONA Test Results Positive ipsilateral pain left , sudden severe apprehension on R PT-OP-M Strength Start: 08/21/19 15:30 Freq: Status: Active Protocol: Document 08/21/19 15:30 DCW (Rec: 08/21/19 17:32 DCW [id number]) Knee Strength Knee Manual Muscle Testing Bilateral Comments All LE MMT 5/5 bilaterally except: Left knee flexion 4-/5 PT-OP-Q Treatments Start: 08/21/19 15:30 Freq: Status: Active Protocol: Document 09/03/19 15:16 HH (Rec: 09/03/19 16:41 [id number]) Cardio Equipment Bicycle (Upright) Duration (Minutes) 10 Resistance 5 Therapeutic Exercises Supine Exercises deadbug Supine Exercise Name deadbug hold f/b slow marches Side bilateral Reps/Minutes 10 secs hold x 5 x2 Comments f/b slow marches, cues to reduce lumbar ext. bridge hip abd Resistance TB #1 Reps/Minutes 2x10 Comments cues to reduce lumbar extension SLR Side bilateral Reps/Minutes 2x10 Comments avoid reaching parallel to reduce lumbar compensation. Standing Exercises sliders Standing Exercise Name lateral slide Side bilateral Equipment Used slider Comments at athletic position crab walk Standing Exercise Name athletic position Side bilateral Equipment Used yellow band Reps/Minutes 20 ft x 3 Comments small steps Manual Therapy Treatment Soft Tissue Mobilization PF, glut med Body Location R>L Mobilization Type Cross-Friction,Sustained Pressure Intensity/Depth Moderate Body Position Sidelying Joint Mobilizations R hip Direction inf/lat Grade II Body Position Supine Reps/Duration 2 min Comments tolerated good stretch Manual Traction hip distraction Body Position Supine Reps/Duration 10 secs hold x 5 Comments reports of symptoms relief. PT-OP-T Assessment and Plan Start: 08/21/19 15:30 Freq: Status: Active Protocol: Document 09/03/19 15:16 (Rec: 09/03/19 16:41 [id number]) Physical Therapy Assessment Goals Three Impairment Pt unable to go out dancing with her Detention Goal (LTG) Pt to tolerate dancing for 45 minutes without increasing her pain LTG Duration 10/23/19 Two Impairment Pt unable to sit in her car longer than 20 minutes without severe pain Manager Commercial Sales Goal (LTG) Pt to tolerate sitting in her car for 60 minutes with pain < 4/10 LTG Duration 10/23/19 One Impairment Pt does not have an appropriate HEP Short Term Goal (STG) Pt to be independent and compliant with an appropriate HEP STG Duration 09/22/19 Assessment Summary Assessment Tx focused on trunk stability to minimize compensatory lumbar extension during SLR and briding. Added deadbug and crab to improve trunk stability. Pt also demonstrates good supine to sit with log roll technique. She also reports discomfort relief with hip distraction. Will cont to progress hip strength, stability and single leg balance training. Physical Therapy Plan Next Visit Focus/Plan Next Note Type Treatment Note Next Visit Plan Assess response to progressed hip strengthening: bridge and hip abd TB and hip hike elevation added last tx and self STM with ball at wall. Next tx add gym shuttle recovery, elliptical has at home to add to HEP. Continue per PT POC: Flexibility, STM, manual traction
--- NOTE | 2019-09-11 18:32 | PT.OTN ---
Current Diagnoses Osteoarthritis of hip, unspecified (09/11/19) Pain in right hip (09/11/19) Pain in left hip (09/11/19) Intervertebral disc disorders with myelopathy, lumbar region (09/11/19) Lumbago with sciatica, unspecified side (09/11/19) Physical Therapy Treatment Note PT-OP-A Visit Information Start: 08/21/19 15:30 Freq: Status: Active Protocol: Document 09/11/19 17:32 HH (Rec: 09/11/19 18:31 HH [id number]) Out-Patient Physical Therapy Visit Information Visit Information Visit Type Treatment Note Visit Start Time 17:32 Visit Stop Time 18:15 Total Visit Minutes 43 Visit Number 6 Number of FRAME OPERATOR Visits 0 PT-OP-B Current Condition Start: 08/21/19 15:30 Freq: Status: Active Protocol: Document 08/21/19 15:30 DCW (Rec: 08/21/19 17:32 DCW [id number]) Current Condition History of Current Condition Onset Date Multi-year history Current Complaints low back and bilateral hip pain History of Current Condition Pt is a 58 year old female with a long history of low back and hip pain. Pt reports she has twice had a partial dislocation of her right hip, happening once in the 90s and once in the last decade. 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 Pt notes that this caused so much degeneration in my knees that when I was in my 30s, I couldn't go up and down stairs. Pt reports that since beginning Glucosamine and chondroitin, this has faded, and she is more mobile. She has recently been suffering an increase in bilateral posterior hip pain, especially with extended sitting, or trying to stand up after extended sitting. Pt also reports burning in the back of her hips, L>R. Pt reports that her PCP recently increased her Celebrex, which helped some, but just this past weekend, took a ferry to [place], and after sitting/ lying down for the trip, could barely walk off the ferry she was so stiff and sore. She is currently feeling improved, but everything just feels so tight. Prior Treatments and Tests Hip x-ray: IMPRESSION: Mild bilateral hip degeneration, probably age-appropriate. If the patient's pain or other symptoms persist, consider further evaluation with MRI. Per: Danny Mccullough M.D. on 08/2019 Lumbar x-ray: IMPRESSION: Multilevel moderate lumbar spondylosis and facet arthropathy. Levoscoliosis. Per: Danny Mccullough M.D. on 08/2019 Future Testing and Treatments Planned Possible further evaluation with MRI, per radiologist report PT-OP-C Subjective Start: 08/21/19 15:30 Freq: Status: Active Protocol: Document 09/11/19 17:32 (Rec: 09/11/19 18:31 HH [id number]) OP-PT Subjective Patient Comments Patient Comments My R hip tweaked last Sunday which caused a lot of pain and i had to use a cane, but i was able to recover the following day. I felt fine for the past few days and able to sleep pretty good. PT-OP-F Manual Assessment Start: 08/21/19 15:30 Freq: Status: Active Protocol: Document 08/21/19 15:30 DCW (Rec: 08/21/19 17:32 DCW [id number]) Manual Assessments Soft Tissue Assessment Soft Tissue Mobility Assessment Tenderness to palpation 2/4 - Pain with wincing: Bilateral QL, bilateral ITB, right hip adductors Tenderness to palpation 3/4 - Wincing and withdraw: Bilateral piriformis, bilateral psoas Moderate-sever tone along bilateral posterior, lateral, and anterior hips, L>R Joint Mobility Assessment Joint Mobility Assessment Apprehension on R with RAMONA, some clunking and report of pain with right labral grind test PT-OP-K Range of Motion Start: 08/21/19 15:30 Freq: Status: Active Protocol: Document 08/21/19 15:30 DCW (Rec: 08/21/19 17:32 DCW [id number]) Lumbar Spine Range of Motion Lumbar Spine Active Degrees Testing Position Standing Flexion 60 Extension 16 ROM Limitations Soft Tissue Tightness,Muscle Tone,Pain PT-OP-L Special Tests Start: 08/21/19 15:30 Freq: Status: Active Protocol: Document 08/21/19 15:30 DCW (Rec: 08/21/19 17:32 DCW [id number]) Special Tests Lumbar Spine Special Tests A-P Shearing Test Results Negative Standing Flexion Test Results Negative Straight Leg Raise Test Results Negative Slump Test Results Negative Manual Traction Test Results Negative Compression Test Results Negative Hip Special Tests Lateral SI Compression Test Results Negative Piriformis Test Results Positive bilaterally RAMONA Test Results Positive ipsilateral pain left , sudden severe apprehension on R PT-OP-M Strength Start: 08/21/19 15:30 Freq: Status: Active Protocol: Document 08/21/19 15:30 DCW (Rec: 08/21/19 17:32 DCW [id number]) Knee Strength Knee Manual Muscle Testing Bilateral Comments All LE MMT 5/5 bilaterally except: Left knee flexion 4-/5 PT-OP-Q Treatments Start: 08/21/19 15:30 Freq: Status: Active Protocol: Document 09/11/19 17:32 (Rec: 09/11/19 18:31 [id number]) Cardio Equipment Bicycle (Upright) Duration (Minutes) 10 Resistance 5 Therapeutic Exercises Supine Exercises bridge hip abd Resistance yellow band Reps/Minutes 2x10 Comments cues to reduce lumbar extension single knee fall out Equipment Used yellow band Reps/Minutes 2 x 10 Standing Exercises standing hip abd with band Standing Exercise Name single leg hip hinge position Equipment Used yellow band Reps/Minutes 5 r x 2 Comments c/o increased hip discomfort. standing hip abd Standing Exercise Name without trunk lateral flexion Side bilateral Reps/Minutes 5 x2 Comments for HEP crab walk Standing Exercise Name athletic position Side bilateral Equipment Used yellow band Reps/Minutes 20 ft x 3 Comments small steps hip elevation Standing Exercise Name hip hike elevation w/ hip abd Equipment Used use mirror to cue Reps/Minutes 8 mins Comments cues to prevent hip drop Manual Therapy Treatment Soft Tissue Mobilization PF, glut med Body Location R>L Mobilization Type Cross-Friction,Sustained Pressure Intensity/Depth Moderate Body Position Sidelying Joint Mobilizations R hip Direction inf/lat Grade II Body Position Supine Reps/Duration 2 min Comments tolerated good stretch Manual Traction hip distraction Body Position Supine Reps/Duration 10 secs hold x 5 Comments reports of symptoms relief. PT-OP-T Assessment and Plan Start: 08/21/19 15:30 Freq: Status: Active Protocol: Document 09/11/19 17:32 (Rec: 09/11/19 18:31 [id number]) Physical Therapy Assessment Goals Three Impairment Pt unable to go out dancing with her Retirement Goal (LTG) Pt to tolerate dancing for 45 minutes without increasing her pain LTG Duration 10/23/19 Two Impairment Pt unable to sit in her car longer than 20 minutes without severe pain Retirement Goal (LTG) Pt to tolerate sitting in her car for 60 minutes with pain < 4/10 LTG Duration 10/23/19 One Impairment Pt does not have an appropriate HEP Short Term Goal (STG) Pt to be independent and compliant with an appropriate HEP STG Duration 09/22/19 Assessment Summary Assessment Tx focused on single leg stability and B hip stabilizers strengthening. Pt has difficulty maintaining equal hip level during single leg stance on R. Added standing hip hike with UE support and hip abd for HEP. Physical Therapy Plan Next Visit Focus/Plan Next Note Type Treatment Note Next Visit Plan Assess response to progressed hip strengthening: bridge and hip abd TB and hip hike elevation added last tx and self STM with ball at wall. Next tx add gym shuttle recovery, elliptical has at home to add to HEP. Continue per PT POC: Flexibility, STM, manual traction
--- NOTE | 2019-09-22 15:16 | PT.OTN ---
Current Diagnoses Osteoarthritis of hip, unspecified (09/22/19) Pain in right hip (09/22/19) Pain in left hip (09/22/19) Intervertebral disc disorders with myelopathy, lumbar region (09/22/19) Lumbago with sciatica, unspecified side (09/22/19) Physical Therapy Treatment Note PT-OP-A Visit Information Start: 08/21/19 15:30 Freq: Status: Active Protocol: Document 09/22/19 14:35 DCW (Rec: 09/22/19 15:16 DCW [id number]) Out-Patient Physical Therapy Visit Information Visit Information Visit Type Treatment Note Visit Note Arrived 5 minutes late Visit Start Time 14:35 Visit Stop Time 15:15 Total Visit Minutes 40 Visit Number 7 Number of PARA PROFESSIONAL Visits 0 Evaluation Information Evaluation Date 08/21/19 PT-OP-B Current Condition Start: 08/21/19 15:30 Freq: Status: Active Protocol: Document 08/21/19 15:30 DCW (Rec: 08/21/19 17:32 DCW [id number]) Current Condition History of Current Condition Onset Date Multi-year history Current Complaints low back and bilateral hip pain History of Current Condition Pt is a 58 year old female with a long history of low back and hip pain. Pt reports she has twice had a partial dislocation of her right hip, happening once in the 90s and once in the last decade. 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 Pt notes that this caused so much degeneration in my knees that when I was in my 30s, I couldn't go up and down stairs. Pt reports that since beginning Glucosamine and chondroitin, this has faded, and she is more mobile. She has recently been suffering an increase in bilateral posterior hip pain, especially with extended sitting, or trying to stand up after extended sitting. Pt also reports burning in the back of her hips, L>R. Pt reports that her PCP recently increased her Celebrex, which helped some, but just this past weekend, took a ferry to [place], and after sitting/ lying down for the trip, could barely walk off the ferry she was so stiff and sore. She is currently feeling improved, but everything just feels so tight. Prior Treatments and Tests Hip x-ray: IMPRESSION: Mild bilateral hip degeneration, probably age-appropriate. If the patient's pain or other symptoms persist, consider further evaluation with MRI. Per: Danny Mccullough M.D. on 08/2019 Lumbar x-ray: IMPRESSION: Multilevel moderate lumbar spondylosis and facet arthropathy. Levoscoliosis. Per: Danny Mccullough M.D. on 08/2019 Future Testing and Treatments Planned Possible further evaluation with MRI, per radiologist report PT-OP-C Subjective Start: 08/21/19 15:30 Freq: Status: Active Protocol: Document 09/22/19 14:35 DCW (Rec: 09/22/19 15:16 DCW [id number]) OP-PT Subjective Patient Comments Patient Comments Pt reports she didn't sleep well last night, just because she was so tight. Admits that she doesn't hit my home exercises every day, but I notice that I do better on the days that I do them. PT-OP-F Manual Assessment Start: 08/21/19 15:30 Freq: Status: Active Protocol: Document 08/21/19 15:30 DCW (Rec: 08/21/19 17:32 DCW [id number]) Manual Assessments Soft Tissue Assessment Soft Tissue Mobility Assessment Tenderness to palpation 2/4 - Pain with wincing: Bilateral QL, bilateral ITB, right hip adductors Tenderness to palpation 3/4 - Wincing and withdraw: Bilateral piriformis, bilateral psoas Moderate-sever tone along bilateral posterior, lateral, and anterior hips, L>R Joint Mobility Assessment Joint Mobility Assessment Apprehension on R with RAMONA, some clunking and report of pain with right labral grind test PT-OP-K Range of Motion Start: 08/21/19 15:30 Freq: Status: Active Protocol: Document 08/21/19 15:30 DCW (Rec: 08/21/19 17:32 DCW [id number]) Lumbar Spine Range of Motion Lumbar Spine Active Degrees Testing Position Standing Flexion 60 Extension 16 ROM Limitations Soft Tissue Tightness,Muscle Tone,Pain PT-OP-L Special Tests Start: 08/21/19 15:30 Freq: Status: Active Protocol: Document 08/21/19 15:30 DCW (Rec: 08/21/19 17:32 DCW [id number]) Special Tests Lumbar Spine Special Tests A-P Shearing Test Results Negative Standing Flexion Test Results Negative Straight Leg Raise Test Results Negative Slump Test Results Negative Manual Traction Test Results Negative Compression Test Results Negative Hip Special Tests Lateral SI Compression Test Results Negative Piriformis Test Results Positive bilaterally RAMONA Test Results Positive ipsilateral pain left , sudden severe apprehension on R PT-OP-M Strength Start: 08/21/19 15:30 Freq: Status: Active Protocol: Document 08/21/19 15:30 DCW (Rec: 08/21/19 17:32 DCW [id number]) Knee Strength Knee Manual Muscle Testing Bilateral Comments All LE MMT 5/5 bilaterally except: Left knee flexion 4-/5 PT-OP-Q Treatments Start: 08/21/19 15:30 Freq: Status: Active Protocol: Document 09/22/19 14:35 DCW (Rec: 09/22/19 15:16 DCW [id number]) Cardio Equipment Bicycle (Upright) Duration (Minutes) 5 Resistance 7 Seat Position 4 Therapeutic Exercises Supine Exercises Bryce stretch Side bilateral Reps/Minutes 30 x3 1 Supine Exercise Name Piriformis stretch: Figure-4 Side bilateral Reps/Minutes 60 Standing Exercises sliders Standing Exercise Name Skaters Side bilateral Resistance Green Equipment Used T-band, Slider Comments at athletic position crab walk Standing Exercise Name athletic position Side bilateral Resistance Green Equipment Used T-band Reps/Minutes 20 ft x 4 Comments small steps hip elevation Standing Exercise Name hip hike on step Manual Therapy Treatment Soft Tissue Mobilization Psoas Body Location R Psoas Mobilization Type Sustained Pressure Intensity/Depth Deep Body Position Supine PF, glut med Body Location R Glut Med, Piriformis, ITB Mobilization Type Cross-Friction,Sustained Pressure Intensity/Depth Moderate Body Position Sidelying Joint Mobilizations R hip Direction inf/lat Grade II Body Position Supine Reps/Duration 2 min Comments tolerated good stretch Manual Traction hip distraction Body Position Supine Reps/Duration 10 secs hold x 5 Comments reports of symptoms relief. PT-OP-T Assessment and Plan Start: 08/21/19 15:30 Freq: Status: Active Protocol: Document 09/22/19 14:35 DCW (Rec: 09/22/19 15:16 DCW [id number]) Physical Therapy Assessment Impairments Impairments Activity Tolerance,Functional Activities,Pain,ROM,Strength, Tone Goals Three Impairment Pt unable to go out dancing with her Correction Goal (LTG) Pt to tolerate dancing for 45 minutes without increasing her pain LTG Duration 10/23/19 Two Impairment Pt unable to sit in her car longer than 20 minutes without severe pain Correction Goal (LTG) Pt to tolerate sitting in her car for 60 minutes with pain < 4/10 LTG Duration 10/23/19 One Impairment Pt does not have an appropriate HEP Short Term Goal (STG) Pt to be independent and compliant with an appropriate HEP STG Duration 09/22/19 Assessment Summary Assessment Pt making improvement, still showing some decreased stability/strength in her right hip. Physical Therapy Plan Frequency and Duration Frequency of Treatment 2x/Week Duration of Treatment 12 weeks Plan of Care Start Date 08/21/19 Plan of Care End Date 11/13/19 Therapeutic Interventions Therapeutic Interventions Aquatic Therapy,Home Exercise Program,Joint Mobilizations, Manual Therapy,Patient/ Caregiver Education,Self-Care/ Home Management,Soft Tissue Mobilization,Therapeutic Activities,Therapeutic Exercises Modalities Cold Pack/Ice Massage,Electric Stimulation,Hot Packs, Traction- Mechanical, Ultrasound Next Visit Focus/Plan Next Note Type Treatment Note Next Visit Plan Assess response to progressed hip strengthening: bridge and hip abd TB and hip hike elevation added last tx and self STM with ball at wall. Next tx add gym shuttle recovery, elliptical has at home to add to HEP. Continue per PT POC: Flexibility, STM, manual traction
--- NOTE | 2019-09-24 13:10 | PT.OTN ---
Current Diagnoses Osteoarthritis of hip, unspecified (09/24/19) Pain in right hip (09/24/19) Pain in left hip (09/24/19) Intervertebral disc disorders with myelopathy, lumbar region (09/24/19) Lumbago with sciatica, unspecified side (09/24/19) Physical Therapy Treatment Note PT-OP-A Visit Information Start: 08/21/19 15:30 Freq: Status: Active Protocol: Document 09/24/19 12:25 SP (Rec: 09/24/19 13:11 SP [id number]) Out-Patient Physical Therapy Visit Information Visit Information Visit Type Treatment Note Visit Note Pt arrived 10 min late but still saw for full tx time. Visit Start Time 12:25 Visit Stop Time 13:10 Total Visit Minutes 45 Visit Number 8 Number of TEST PILOT Visits 1 PT-OP-B Current Condition Start: 08/21/19 15:30 Freq: Status: Active Protocol: Document 08/21/19 15:30 DCW (Rec: 08/21/19 17:32 DCW [id number]) Current Condition History of Current Condition Onset Date Multi-year history Current Complaints low back and bilateral hip pain History of Current Condition Pt is a 58 year old female with a long history of low back and hip pain. Pt reports she has twice had a partial dislocation of her right hip, happening once in the 90s and once in the last decade. 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 Pt notes that this caused so much degeneration in my knees that when I was in my 30s, I couldn't go up and down stairs. Pt reports that since beginning Glucosamine and chondroitin, this has faded, and she is more mobile. She has recently been suffering an increase in bilateral posterior hip pain, especially with extended sitting, or trying to stand up after extended sitting. Pt also reports burning in the back of her hips, L>R. Pt reports that her PCP recently increased her Celebrex, which helped some, but just this past weekend, took a ferry to [place], and after sitting/ lying down for the trip, could barely walk off the ferry she was so stiff and sore. She is currently feeling improved, but everything just feels so tight. Prior Treatments and Tests Hip x-ray: IMPRESSION: Mild bilateral hip degeneration, probably age-appropriate. If the patient's pain or other symptoms persist, consider further evaluation with MRI. Per: Danny Mccullough M.D. on 08/2019 Lumbar x-ray: IMPRESSION: Multilevel moderate lumbar spondylosis and facet arthropathy. Levoscoliosis. Per: Danny Mccullough M.D. on 08/2019 Future Testing and Treatments Planned Possible further evaluation with MRI, per radiologist report PT-OP-C Subjective Start: 08/21/19 15:30 Freq: Status: Active Protocol: Document 09/24/19 12:25 SP (Rec: 09/24/19 13:11 SP [id number]) OP-PT Subjective Patient Comments Patient Comments Pt stated L hip sore pre PT, manual STM and hip mobs last tx helped alot and wants to perform again today along with use of gym equipment and more core exercises for home. PT-OP-F Manual Assessment Start: 08/21/19 15:30 Freq: Status: Active Protocol: Document 08/21/19 15:30 DCW (Rec: 08/21/19 17:32 DCW [id number]) Manual Assessments Soft Tissue Assessment Soft Tissue Mobility Assessment Tenderness to palpation 2/4 - Pain with wincing: Bilateral QL, bilateral ITB, right hip adductors Tenderness to palpation 3/4 - Wincing and withdraw: Bilateral piriformis, bilateral psoas Moderate-sever tone along bilateral posterior, lateral, and anterior hips, L>R Joint Mobility Assessment Joint Mobility Assessment Apprehension on R with RAMONA, some clunking and report of pain with right labral grind test PT-OP-K Range of Motion Start: 08/21/19 15:30 Freq: Status: Active Protocol: Document 08/21/19 15:30 DCW (Rec: 08/21/19 17:32 DCW [id number]) Lumbar Spine Range of Motion Lumbar Spine Active Degrees Testing Position Standing Flexion 60 Extension 16 ROM Limitations Soft Tissue Tightness,Muscle Tone,Pain PT-OP-L Special Tests Start: 08/21/19 15:30 Freq: Status: Active Protocol: Document 08/21/19 15:30 DCW (Rec: 08/21/19 17:32 DCW [id number]) Special Tests Lumbar Spine Special Tests A-P Shearing Test Results Negative Standing Flexion Test Results Negative Straight Leg Raise Test Results Negative Slump Test Results Negative Manual Traction Test Results Negative Compression Test Results Negative Hip Special Tests Lateral SI Compression Test Results Negative Piriformis Test Results Positive bilaterally RAMONA Test Results Positive ipsilateral pain left , sudden severe apprehension on R PT-OP-M Strength Start: 08/21/19 15:30 Freq: Status: Active Protocol: Document 08/21/19 15:30 DCW (Rec: 08/21/19 17:32 DCW [id number]) Knee Strength Knee Manual Muscle Testing Bilateral Comments All LE MMT 5/5 bilaterally except: Left knee flexion 4-/5 PT-OP-Q Treatments Start: 08/21/19 15:30 Freq: Status: Active Protocol: Document 09/24/19 12:25 SP (Rec: 09/24/19 13:11 SP [id number]) Gym Equipment Shuttle Recovery Unlateral squat Resistance 50# Shuttle Recovery Platform Stable Reps/Time 2x10 alternate BLE bilateral squat Resistance 75# Shuttle Recovery Platform Stable Reps/Time 2x10 Therapeutic Exercises Supine Exercises 1 Supine Exercise Name Piriformis stretch: Figure-4 Side left Reps/Minutes 60 Sitting Exercises resisted shoulder ext Sitting Exercise Name reclined rear facing core pull down Resistance TB #1 Reps/Minutes 2x10 Comments cued seated front ball, reclined, chest lift, elbow straight pull down Standing Exercises chops lunge stance TB Side bilateral Resistance TB #1 Reps/Minutes x10 sliders Standing Exercise Name Skaters Side bilateral Resistance Green Equipment Used T-band, Slider Comments at athletic position Manual Therapy Treatment Soft Tissue Mobilization PF, glut med Body Location R Glut Med, Piriformis Mobilization Type Cross-Friction,Sustained Pressure Intensity/Depth Moderate Body Position Sidelying PT-OP-T Assessment and Plan Start: 08/21/19 15:30 Freq: Status: Active Protocol: Document 09/24/19 12:25 SP (Rec: 09/24/19 13:11 SP [id number]) Physical Therapy Assessment Goals Three Impairment Pt unable to go out dancing with her Systems Operator Goal (LTG) Pt to tolerate dancing for 45 minutes without increasing her pain LTG Duration 10/23/19 Two Impairment Pt unable to sit in her car longer than 20 minutes without severe pain [facility] Goal (LTG) Pt to tolerate sitting in her car for 60 minutes with pain < 4/10 LTG Duration 10/23/19 One Impairment Pt does not have an appropriate HEP Short Term Goal (STG) Pt to be independent and compliant with an appropriate HEP STG Duration 09/22/19 Assessment Summary Assessment Pt responded well HEP review sliders, added retro core pull downs and standing lunge chops along with gym equipment shuttle recovery B and SL for carrover to home on total gym . End of tx applied manual STM to L Piriformis and stretching to decrase pa in with positive results. Physical Therapy Plan Frequency and Duration Frequency of Treatment 2x/Week Duration of Treatment 12 weeks Plan of Care Start Date 08/21/19 Plan of Care End Date 11/13/19 Therapeutic Interventions Therapeutic Interventions Aquatic Therapy,Home Exercise Program,Joint Mobilizations, Manual Therapy,Patient/ Caregiver Education,Self-Care/ Home Management,Soft Tissue Mobilization,Therapeutic Activities,Therapeutic Exercises Modalities Cold Pack/Ice Massage,Electric Stimulation,Hot Packs, Traction- Mechanical, Ultrasound Next Visit Focus/Plan Next Note Type Treatment Note Next Visit Plan Assess response to added chops, resisted pull down and shuttle squats to be applied to her total gym. Next tx assess elliptical, spin and treadmill cardio to apply as at home to add to HEP . Continue per PT POC: Flexibility, STM, manual traction
--- NOTE | 2019-09-29 12:01 | PT.OTN ---
Current Diagnoses Osteoarthritis of hip, unspecified (09/29/19) Pain in right hip (09/29/19) Pain in left hip (09/29/19) Intervertebral disc disorders with myelopathy, lumbar region (09/29/19) Lumbago with sciatica, unspecified side (09/29/19) Physical Therapy Treatment Note PT-OP-A Visit Information Start: 08/21/19 15:30 Freq: Status: Active Protocol: Document 09/29/19 11:20 DCW (Rec: 09/29/19 12:01 DCW [id number]) Out-Patient Physical Therapy Visit Information Visit Information Visit Type Treatment Note Visit Note Arrived 5 minutes late Visit Start Time 11:20 Visit Stop Time 12:00 Total Visit Minutes 40 Visit Number 9 Number of INSURANCE ACCOUNT REPRESENTATIVE Visits 0 Evaluation Information Evaluation Date 08/21/19 PT-OP-B Current Condition Start: 08/21/19 15:30 Freq: Status: Active Protocol: Document 08/21/19 15:30 DCW (Rec: 08/21/19 17:32 DCW [id number]) Current Condition History of Current Condition Onset Date Multi-year history Current Complaints low back and bilateral hip pain History of Current Condition Pt is a 58 year old female with a long history of low back and hip pain. Pt reports she has twice had a partial dislocation of her right hip, happening once in the 90s and once in the last decade. 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 Pt notes that this caused so much degeneration in my knees that when I was in my 30s, I couldn't go up and down stairs. Pt reports that since beginning Glucosamine and chondroitin, this has faded, and she is more mobile. She has recently been suffering an increase in bilateral posterior hip pain, especially with extended sitting, or trying to stand up after extended sitting. Pt also reports burning in the back of her hips, L>R. Pt reports that her PCP recently increased her Celebrex, which helped some, but just this past weekend, took a ferry to [place], and after sitting/ lying down for the trip, could barely walk off the ferry she was so stiff and sore. She is currently feeling improved, but everything just feels so tight. Prior Treatments and Tests Hip x-ray: IMPRESSION: Mild bilateral hip degeneration, probably age-appropriate. If the patient's pain or other symptoms persist, consider further evaluation with MRI. Per: Danny Mccullough M.D. on 08/2019 Lumbar x-ray: IMPRESSION: Multilevel moderate lumbar spondylosis and facet arthropathy. Levoscoliosis. Per: Danny Mccullough M.D. on 08/2019 Future Testing and Treatments Planned Possible further evaluation with MRI, per radiologist report PT-OP-C Subjective Start: 08/21/19 15:30 Freq: Status: Active Protocol: Document 09/29/19 11:20 DCW (Rec: 09/29/19 12:01 DCW [id number]) OP-PT Subjective Patient Comments Patient Comments I think it is feeling somewhat better. Pt notes she has been waking up with less pain. PT-OP-F Manual Assessment Start: 08/21/19 15:30 Freq: Status: Active Protocol: Document 08/21/19 15:30 DCW (Rec: 08/21/19 17:32 DCW [id number]) Manual Assessments Soft Tissue Assessment Soft Tissue Mobility Assessment Tenderness to palpation 2/4 - Pain with wincing: Bilateral QL, bilateral ITB, right hip adductors Tenderness to palpation 3/4 - Wincing and withdraw: Bilateral piriformis, bilateral psoas Moderate-sever tone along bilateral posterior, lateral, and anterior hips, L>R Joint Mobility Assessment Joint Mobility Assessment Apprehension on R with RAMONA, some clunking and report of pain with right labral grind test PT-OP-K Range of Motion Start: 08/21/19 15:30 Freq: Status: Active Protocol: Document 08/21/19 15:30 DCW (Rec: 08/21/19 17:32 DCW [id number]) Lumbar Spine Range of Motion Lumbar Spine Active Degrees Testing Position Standing Flexion 60 Extension 16 ROM Limitations Soft Tissue Tightness,Muscle Tone,Pain PT-OP-L Special Tests Start: 08/21/19 15:30 Freq: Status: Active Protocol: Document 08/21/19 15:30 DCW (Rec: 08/21/19 17:32 DCW [id number]) Special Tests Lumbar Spine Special Tests A-P Shearing Test Results Negative Standing Flexion Test Results Negative Straight Leg Raise Test Results Negative Slump Test Results Negative Manual Traction Test Results Negative Compression Test Results Negative Hip Special Tests Lateral SI Compression Test Results Negative Piriformis Test Results Positive bilaterally RAMONA Test Results Positive ipsilateral pain left , sudden severe apprehension on R PT-OP-M Strength Start: 08/21/19 15:30 Freq: Status: Active Protocol: Document 08/21/19 15:30 DCW (Rec: 08/21/19 17:32 DCW [id number]) Knee Strength Knee Manual Muscle Testing Bilateral Comments All LE MMT 5/5 bilaterally except: Left knee flexion 4-/5 PT-OP-Q Treatments Start: 08/21/19 15:30 Freq: Status: Active Protocol: Document 09/29/19 11:20 DCW (Rec: 09/29/19 12:01 DCW [id number]) Cardio Equipment Bicycle (Upright) Duration (Minutes) 5 Resistance 7 Seat Position 4 Gym Equipment Shuttle Recovery Unlateral squat Resistance 50# Shuttle Recovery Platform Stable Reps/Time 2x10 alternate BLE bilateral squat Resistance 100# Shuttle Recovery Platform Stable Reps/Time 2x10 Therapeutic Exercises Standing Exercises sliders Standing Exercise Name Skaters Side bilateral Equipment Used Slider Reps/Minutes 2x10 Comments at athletic position crab walk Standing Exercise Name athletic position Side bilateral Resistance Green Equipment Used T-band Reps/Minutes 20 ft x 4 Comments small steps Manual Therapy Treatment Soft Tissue Mobilization Psoas Body Location R Psoas Mobilization Type Sustained Pressure Intensity/Depth Deep Body Position Supine PF, glut med Body Location R Glut Med, Piriformis Mobilization Type Cross-Friction,Sustained Pressure Intensity/Depth Moderate Body Position Sidelying Joint Mobilizations R hip Direction inf/lat Grade II Body Position Supine Manual Traction hip distraction Body Position Supine Reps/Duration 10 secs hold x 5 Comments reports of symptoms relief. PT-OP-T Assessment and Plan Start: 08/21/19 15:30 Freq: Status: Active Protocol: Document 09/29/19 11:20 DCW (Rec: 09/29/19 12:01 DCW [id number]) Physical Therapy Assessment Impairments Impairments Activity Tolerance,Functional Activities,Pain,ROM,Strength, Tone Goals Three Impairment Pt unable to go out dancing with her Detention Goal (LTG) Pt to tolerate dancing for 45 minutes without increasing her pain LTG Duration 10/23/19 Two Impairment Pt unable to sit in her car longer than 20 minutes without severe pain Detention Goal (LTG) Pt to tolerate sitting in her car for 60 minutes with pain < 4/10 LTG Duration 10/23/19 One Impairment Pt does not have an appropriate HEP Short Term Goal (STG) Pt to be independent and compliant with an appropriate HEP STG Duration 09/22/19 Assessment Summary Assessment Pt felt much better following treatment today, continues to exhibit hypertonia in posterior hip musculature. Physical Therapy Plan Frequency and Duration Frequency of Treatment 2x/Week Duration of Treatment 12 weeks Plan of Care Start Date 08/21/19 Plan of Care End Date 11/13/19 Therapeutic Interventions Therapeutic Interventions Aquatic Therapy,Home Exercise Program,Joint Mobilizations, Manual Therapy,Patient/ Caregiver Education,Self-Care/ Home Management,Soft Tissue Mobilization,Therapeutic Activities,Therapeutic Exercises Modalities Cold Pack/Ice Massage,Electric Stimulation,Hot Packs, Traction- Mechanical, Ultrasound Next Visit Focus/Plan Next Note Type Treatment Note Next Visit Plan Assess response to added chops, resisted pull down and shuttle squats to be applied to her total gym. Next tx assess elliptical, spin and treadmill cardio to apply as at home to add to HEP . Continue per PT POC: Flexibility, STM, manual traction
--- NOTE | 2019-10-06 12:02 | PT.OTN ---
Current Diagnoses Osteoarthritis of hip, unspecified (10/06/19) Pain in right hip (10/06/19) Pain in left hip (10/06/19) Intervertebral disc disorders with myelopathy, lumbar region (10/06/19) Lumbago with sciatica, unspecified side (10/06/19) Physical Therapy Treatment Note PT-OP-A Visit Information Start: 08/21/19 15:30 Freq: Status: Active Protocol: Document 10/06/19 11:20 DCW (Rec: 10/06/19 12:02 DCW [id number]) Out-Patient Physical Therapy Visit Information Visit Information Visit Type Treatment Note Visit Note Arrived 5 minutes late Visit Start Time 11:20 Visit Stop Time 12:00 Total Visit Minutes 40 Visit Number 10 Number of GREENHOUSE SUPERINTENDENT Visits 0 Evaluation Information Evaluation Date 08/21/19 PT-OP-B Current Condition Start: 08/21/19 15:30 Freq: Status: Active Protocol: Document 08/21/19 15:30 DCW (Rec: 08/21/19 17:32 DCW [id number]) Current Condition History of Current Condition Onset Date Multi-year history Current Complaints low back and bilateral hip pain History of Current Condition Pt is a 58 year old female with a long history of low back and hip pain. Pt reports she has twice had a partial dislocation of her right hip, happening once in the 90s and once in the last decade. 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 Pt notes that this caused so much degeneration in my knees that when I was in my 30s, I couldn't go up and down stairs. Pt reports that since beginning Glucosamine and chondroitin, this has faded, and she is more mobile. She has recently been suffering an increase in bilateral posterior hip pain, especially with extended sitting, or trying to stand up after extended sitting. Pt also reports burning in the back of her hips, L>R. Pt reports that her PCP recently increased her Celebrex, which helped some, but just this past weekend, took a ferry to [place], and after sitting/ lying down for the trip, could barely walk off the ferry she was so stiff and sore. She is currently feeling improved, but everything just feels so tight. Prior Treatments and Tests Hip x-ray: IMPRESSION: Mild bilateral hip degeneration, probably age-appropriate. If the patient's pain or other symptoms persist, consider further evaluation with MRI. Per: Danny Mccullough M.D. on 08/2019 Lumbar x-ray: IMPRESSION: Multilevel moderate lumbar spondylosis and facet arthropathy. Levoscoliosis. Per: Danny Mccullough M.D. on 08/2019 Future Testing and Treatments Planned Possible further evaluation with MRI, per radiologist report PT-OP-C Subjective Start: 08/21/19 15:30 Freq: Status: Active Protocol: Document 10/06/19 11:20 DCW (Rec: 10/06/19 12:02 DCW [id number]) OP-PT Subjective Patient Comments Patient Comments Physically there's some improvement, and I'm excited about that. I'm able to get out of bed without the extreme pain I had been having. PT-OP-F Manual Assessment Start: 08/21/19 15:30 Freq: Status: Active Protocol: Document 08/21/19 15:30 DCW (Rec: 08/21/19 17:32 DCW [id number]) Manual Assessments Soft Tissue Assessment Soft Tissue Mobility Assessment Tenderness to palpation 2/4 - Pain with wincing: Bilateral QL, bilateral ITB, right hip adductors Tenderness to palpation 3/4 - Wincing and withdraw: Bilateral piriformis, bilateral psoas Moderate-sever tone along bilateral posterior, lateral, and anterior hips, L>R Joint Mobility Assessment Joint Mobility Assessment Apprehension on R with RAMONA, some clunking and report of pain with right labral grind test PT-OP-K Range of Motion Start: 08/21/19 15:30 Freq: Status: Active Protocol: Document 08/21/19 15:30 DCW (Rec: 08/21/19 17:32 DCW [id number]) Lumbar Spine Range of Motion Lumbar Spine Active Degrees Testing Position Standing Flexion 60 Extension 16 ROM Limitations Soft Tissue Tightness,Muscle Tone,Pain PT-OP-L Special Tests Start: 08/21/19 15:30 Freq: Status: Active Protocol: Document 08/21/19 15:30 DCW (Rec: 08/21/19 17:32 DCW [id number]) Special Tests Lumbar Spine Special Tests A-P Shearing Test Results Negative Standing Flexion Test Results Negative Straight Leg Raise Test Results Negative Slump Test Results Negative Manual Traction Test Results Negative Compression Test Results Negative Hip Special Tests Lateral SI Compression Test Results Negative Piriformis Test Results Positive bilaterally RAMONA Test Results Positive ipsilateral pain left , sudden severe apprehension on R PT-OP-M Strength Start: 08/21/19 15:30 Freq: Status: Active Protocol: Document 08/21/19 15:30 DCW (Rec: 08/21/19 17:32 DCW [id number]) Knee Strength Knee Manual Muscle Testing Bilateral Comments All LE MMT 5/5 bilaterally except: Left knee flexion 4-/5 PT-OP-Q Treatments Start: 08/21/19 15:30 Freq: Status: Active Protocol: Document 10/06/19 11:20 DCW (Rec: 10/06/19 12:02 DCW [id number]) Cardio Equipment Bicycle (Upright) Duration (Minutes) 6 Resistance 7 Seat Position 4 Gym Equipment Shuttle Recovery Unlateral squat Resistance 50# Shuttle Recovery Platform Stable Reps/Time 2x10 alternate BLE bilateral squat Resistance 100# Shuttle Recovery Platform Unstable Reps/Time 2x10 Shuttle Balance Red Details Staggered, Lateral weight shift Therapeutic Exercises Standing Exercises sliders Standing Exercise Name Skaters Side bilateral Equipment Used Slider Reps/Minutes 2x10 Comments at athletic position crab walk Standing Exercise Name athletic position Side bilateral Resistance Green Equipment Used T-band Reps/Minutes 20 ft x 4 Comments small steps Manual Therapy Treatment Soft Tissue Mobilization Psoas Body Location R Psoas Mobilization Type Sustained Pressure Intensity/Depth Deep Body Position Supine PF, glut med Body Location R Glut Med, Piriformis Mobilization Type Cross-Friction,Sustained Pressure Intensity/Depth Moderate Body Position Sidelying PT-OP-T Assessment and Plan Start: 08/21/19 15:30 Freq: Status: Active Protocol: Document 10/06/19 11:20 DCW (Rec: 10/06/19 12:02 DCW [id number]) Physical Therapy Assessment Impairments Impairments Activity Tolerance,Functional Activities,Pain,ROM,Strength, Tone Goals Three Impairment Pt unable to go out dancing with her Induction Machine Setter Goal (LTG) Pt to tolerate dancing for 45 minutes without increasing her pain LTG Duration 10/23/19 Two Impairment Pt unable to sit in her car longer than 20 minutes without severe pain Assisted Goal (LTG) Pt to tolerate sitting in her car for 60 minutes with pain < 4/10 LTG Duration 10/23/19 One Impairment Pt does not have an appropriate HEP Short Term Goal (STG) Pt to be independent and compliant with an appropriate HEP STG Duration 09/22/19 Assessment Summary Assessment Pt improving overall, showing improved flexibility, strength , joint mobility, and knowledge of HEP. Continue with current program to assist with remaining stiffness and pain. Physical Therapy Plan Frequency and Duration Frequency of Treatment 2x/Week Duration of Treatment 12 weeks Plan of Care Start Date 08/21/19 Plan of Care End Date 11/13/19 Therapeutic Interventions Therapeutic Interventions Aquatic Therapy,Home Exercise Program,Joint Mobilizations, Manual Therapy,Patient/ Caregiver Education,Self-Care/ Home Management,Soft Tissue Mobilization,Therapeutic Activities,Therapeutic Exercises Modalities Cold Pack/Ice Massage,Electric Stimulation,Hot Packs, Traction- Mechanical, Ultrasound Next Visit Focus/Plan Next Note Type Treatment Note Next Visit Plan Assess response to added chops, resisted pull down and shuttle squats to be applied to her total gym. Next tx assess elliptical, spin and treadmill cardio to apply as at home to add to HEP . Continue per PT POC: Flexibility, STM, manual traction
--- NOTE | 2019-10-08 11:20 | PT.OTN ---
Current Diagnoses Osteoarthritis of hip, unspecified (10/08/19) Pain in right hip (10/08/19) Pain in left hip (10/08/19) Intervertebral disc disorders with myelopathy, lumbar region (10/08/19) Lumbago with sciatica, unspecified side (10/08/19) Physical Therapy Treatment Note PT-OP-A Visit Information Start: 08/21/19 15:30 Freq: Status: Active Protocol: Document 10/08/19 10:35 SP (Rec: 10/08/19 11:37 SP [id number]) Out-Patient Physical Therapy Visit Information Visit Information Visit Type Treatment Note Visit Start Time 10:35 Visit Stop Time 11:20 Total Visit Minutes 45 Visit Number 11 Number of R D MANAGER Visits 1 PT-OP-B Current Condition Start: 08/21/19 15:30 Freq: Status: Active Protocol: Document 08/21/19 15:30 DCW (Rec: 08/21/19 17:32 DCW [id number]) Current Condition History of Current Condition Onset Date Multi-year history Current Complaints low back and bilateral hip pain History of Current Condition Pt is a 58 year old female with a long history of low back and hip pain. Pt reports she has twice had a partial dislocation of her right hip, happening once in the 90s and once in the last decade. 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 Pt notes that this caused so much degeneration in my knees that when I was in my 30s, I couldn't go up and down stairs. Pt reports that since beginning Glucosamine and chondroitin, this has faded, and she is more mobile. She has recently been suffering an increase in bilateral posterior hip pain, especially with extended sitting, or trying to stand up after extended sitting. Pt also reports burning in the back of her hips, L>R. Pt reports that her PCP recently increased her Celebrex, which helped some, but just this past weekend, took a ferry to [place], and after sitting/ lying down for the trip, could barely walk off the ferry she was so stiff and sore. She is currently feeling improved, but everything just feels so tight. Prior Treatments and Tests Hip x-ray: IMPRESSION: Mild bilateral hip degeneration, probably age-appropriate. If the patient's pain or other symptoms persist, consider further evaluation with MRI. Per: Danny Mccullough M.D. on 08/2019 Lumbar x-ray: IMPRESSION: Multilevel moderate lumbar spondylosis and facet arthropathy. Levoscoliosis. Per: Danny Mccullough M.D. on 08/2019 Future Testing and Treatments Planned Possible further evaluation with MRI, per radiologist report PT-OP-C Subjective Start: 08/21/19 15:30 Freq: Status: Active Protocol: Document 10/08/19 10:35 SP (Rec: 10/08/19 11:37 SP [id number]) OP-PT Subjective Patient Comments Patient Comments Pt stated doing well, wants to review gym equipment to be able to use at home today, brought total gym log roper to refer to. PT-OP-F Manual Assessment Start: 08/21/19 15:30 Freq: Status: Active Protocol: Document 08/21/19 15:30 DCW (Rec: 08/21/19 17:32 DCW [id number]) Manual Assessments Soft Tissue Assessment Soft Tissue Mobility Assessment Tenderness to palpation 2/4 - Pain with wincing: Bilateral QL, bilateral ITB, right hip adductors Tenderness to palpation 3/4 - Wincing and withdraw: Bilateral piriformis, bilateral psoas Moderate-sever tone along bilateral posterior, lateral, and anterior hips, L>R Joint Mobility Assessment Joint Mobility Assessment Apprehension on R with RAMONA, some clunking and report of pain with right labral grind test PT-OP-K Range of Motion Start: 08/21/19 15:30 Freq: Status: Active Protocol: Document 08/21/19 15:30 DCW (Rec: 08/21/19 17:32 DCW [id number]) Lumbar Spine Range of Motion Lumbar Spine Active Degrees Testing Position Standing Flexion 60 Extension 16 ROM Limitations Soft Tissue Tightness,Muscle Tone,Pain PT-OP-L Special Tests Start: 08/21/19 15:30 Freq: Status: Active Protocol: Document 08/21/19 15:30 DCW (Rec: 08/21/19 17:32 DCW [id number]) Special Tests Lumbar Spine Special Tests A-P Shearing Test Results Negative Standing Flexion Test Results Negative Straight Leg Raise Test Results Negative Slump Test Results Negative Manual Traction Test Results Negative Compression Test Results Negative Hip Special Tests Lateral SI Compression Test Results Negative Piriformis Test Results Positive bilaterally RAMONA Test Results Positive ipsilateral pain left , sudden severe apprehension on R PT-OP-M Strength Start: 08/21/19 15:30 Freq: Status: Active Protocol: Document 08/21/19 15:30 DCW (Rec: 08/21/19 17:32 DCW [id number]) Knee Strength Knee Manual Muscle Testing Bilateral Comments All LE MMT 5/5 bilaterally except: Left knee flexion 4-/5 PT-OP-Q Treatments Start: 08/21/19 15:30 Freq: Status: Active Protocol: Document 10/08/19 10:35 SP (Rec: 10/08/19 11:37 SP [id number]) Cardio Equipment Elliptical Duration (Minutes) 5 Resistance 3 Other cued PPT Gym Equipment Shuttle Balance Red Details WBOS, NBOS head turns Comments cued wt BLE, glut facilitation , chest lift Therapeutic Ball oblique Exercise Details seated chop Ball Size/Color 65cm Body Position Sitting Reps/Duration 2x10 B Comments cued PPT seated pull down Exercise Details shld ext facing and retro facin Ball Size/Color 65cm Body Position Sitting Reps/Duration 2x10 each direction Comments Cued chest lift, PPT Therapeutic Exercises Standing Exercises single leg hip hinge Side bilateral Reps/Minutes 2x5 Comments cued level pelvis neutral spine (dowel initially) tap chair UE PT-OP-T Assessment and Plan Start: 08/21/19 15:30 Freq: Status: Active Protocol: Document 10/08/19 10:35 SP (Rec: 10/08/19 11:37 SP [id number]) Physical Therapy Assessment Goals Three Impairment Pt unable to go out dancing with her Penitentiary Goal (LTG) Pt to tolerate dancing for 45 minutes without increasing her pain LTG Duration 10/23/19 Two Impairment Pt unable to sit in her car longer than 20 minutes without severe pain Penitentiary Goal (LTG) Pt to tolerate sitting in her car for 60 minutes with pain < 4/10 LTG Duration 10/23/19 One Impairment Pt does not have an appropriate HEP Short Term Goal (STG) Pt to be independent and compliant with an appropriate HEP STG Duration 09/22/19 Assessment Summary Assessment Incorporated equatorial guinean ball UE resistancde today for home equipment use and how can use total gym marked on her log roper similar to ball postioning. Added hip hinge dowel standing , squat then single leg hip hinge using dowel for spinal alignment and cued awareness level pelvis to improve squat posture and glut med strengthening with improvement in balance. Increase NBOS on shuttle balance today and improved stability post glut squeeze cue. Unable to complete EC yet, trial next visit. No pain post tx it feels good, like the increased challenge. Physical Therapy Plan Frequency and Duration Frequency of Treatment 2x/Week Duration of Treatment 12 weeks Plan of Care Start Date 08/21/19 Plan of Care End Date 11/13/19 Therapeutic Interventions Therapeutic Interventions Aquatic Therapy,Home Exercise Program,Joint Mobilizations, Manual Therapy,Patient/ Caregiver Education,Self-Care/ Home Management,Soft Tissue Mobilization,Therapeutic Activities,Therapeutic Exercises Modalities Cold Pack/Ice Massage,Electric Stimulation,Hot Packs, Traction- Mechanical, Ultrasound Next Visit Focus/Plan Next Note Type Treatment Note Next Visit Plan Assess response to added seated SB with TB pull down/ oblique chop and single leg hip hinge. Next tx add shuttle balance NBOS EC. Next tx assess elliptical, spin and treadmill cardio to apply as at home to add to HEP . Continue per PT POC: Flexibility, STM, manual traction
--- NOTE | 2019-10-13 11:15 | PT.OTN ---
Current Diagnoses Osteoarthritis of hip, unspecified (10/13/19) Pain in right hip (10/13/19) Pain in left hip (10/13/19) Intervertebral disc disorders with myelopathy, lumbar region (10/13/19) Lumbago with sciatica, unspecified side (10/13/19) Physical Therapy Treatment Note PT-OP-A Visit Information Start: 08/21/19 15:30 Freq: Status: Active Protocol: Document 10/13/19 10:40 DCW (Rec: 10/13/19 11:15 DCW [id number]) Out-Patient Physical Therapy Visit Information Visit Information Visit Type Treatment Note Visit Note 10 min late Visit Start Time 10:40 Visit Stop Time 11:15 Total Visit Minutes 35 Visit Number 12 Number of TRANSFER CLERK Visits 0 Evaluation Information Evaluation Date 08/21/19 PT-OP-B Current Condition Start: 08/21/19 15:30 Freq: Status: Active Protocol: Document 08/21/19 15:30 DCW (Rec: 08/21/19 17:32 DCW [id number]) Current Condition History of Current Condition Onset Date Multi-year history Current Complaints low back and bilateral hip pain History of Current Condition Pt is a 58 year old female with a long history of low back and hip pain. Pt reports she has twice had a partial dislocation of her right hip, happening once in the 90s and once in the last decade. 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 Pt notes that this caused so much degeneration in my knees that when I was in my 30s, I couldn't go up and down stairs. Pt reports that since beginning Glucosamine and chondroitin, this has faded, and she is more mobile. She has recently been suffering an increase in bilateral posterior hip pain, especially with extended sitting, or trying to stand up after extended sitting. Pt also reports burning in the back of her hips, L>R. Pt reports that her PCP recently increased her Celebrex, which helped some, but just this past weekend, took a ferry to [place], and after sitting/ lying down for the trip, could barely walk off the ferry she was so stiff and sore. She is currently feeling improved, but everything just feels so tight. Prior Treatments and Tests Hip x-ray: IMPRESSION: Mild bilateral hip degeneration, probably age-appropriate. If the patient's pain or other symptoms persist, consider further evaluation with MRI. Per: Danny Mccullough M.D. on 08/2019 Lumbar x-ray: IMPRESSION: Multilevel moderate lumbar spondylosis and facet arthropathy. Levoscoliosis. Per: Danny Mccullough M.D. on 08/2019 Future Testing and Treatments Planned Possible further evaluation with MRI, per radiologist report PT-OP-C Subjective Start: 08/21/19 15:30 Freq: Status: Active Protocol: Document 10/13/19 10:40 DCW (Rec: 10/13/19 11:15 DCW [id number]) OP-PT Subjective Patient Comments Patient Comments There is progress that we've made that is sticking around, which I appreciate. I can get out of bed much more easily. PT-OP-F Manual Assessment Start: 08/21/19 15:30 Freq: Status: Active Protocol: Document 08/21/19 15:30 DCW (Rec: 08/21/19 17:32 DCW [id number]) Manual Assessments Soft Tissue Assessment Soft Tissue Mobility Assessment Tenderness to palpation 2/4 - Pain with wincing: Bilateral QL, bilateral ITB, right hip adductors Tenderness to palpation 3/4 - Wincing and withdraw: Bilateral piriformis, bilateral psoas Moderate-sever tone along bilateral posterior, lateral, and anterior hips, L>R Joint Mobility Assessment Joint Mobility Assessment Apprehension on R with RAMONA, some clunking and report of pain with right labral grind test PT-OP-K Range of Motion Start: 08/21/19 15:30 Freq: Status: Active Protocol: Document 08/21/19 15:30 DCW (Rec: 08/21/19 17:32 DCW [id number]) Lumbar Spine Range of Motion Lumbar Spine Active Degrees Testing Position Standing Flexion 60 Extension 16 ROM Limitations Soft Tissue Tightness,Muscle Tone,Pain PT-OP-L Special Tests Start: 08/21/19 15:30 Freq: Status: Active Protocol: Document 08/21/19 15:30 DCW (Rec: 08/21/19 17:32 DCW [id number]) Special Tests Lumbar Spine Special Tests A-P Shearing Test Results Negative Standing Flexion Test Results Negative Straight Leg Raise Test Results Negative Slump Test Results Negative Manual Traction Test Results Negative Compression Test Results Negative Hip Special Tests Lateral SI Compression Test Results Negative Piriformis Test Results Positive bilaterally RAMONA Test Results Positive ipsilateral pain left , sudden severe apprehension on R PT-OP-M Strength Start: 08/21/19 15:30 Freq: Status: Active Protocol: Document 08/21/19 15:30 DCW (Rec: 08/21/19 17:32 DCW [id number]) Knee Strength Knee Manual Muscle Testing Bilateral Comments All LE MMT 5/5 bilaterally except: Left knee flexion 4-/5 PT-OP-Q Treatments Start: 08/21/19 15:30 Freq: Status: Active Protocol: Document 10/13/19 10:40 DCW (Rec: 10/13/19 11:15 DCW [id number]) Cardio Equipment Bicycle (Upright) Duration (Minutes) 6 Resistance 7 Seat Position 4 Gym Equipment Shuttle Recovery Unlateral squat Resistance 62# Shuttle Recovery Platform Stable Reps/Time 2x10 alternate BLE bilateral squat Resistance 100# Shuttle Recovery Platform Unstable Reps/Time 2x10 Shuttle Balance Red Details Staggered, Lateral weight shift Therapeutic Ball Resisted Rotation Exercise Details Resisted trunk rotation Ball Size/Color Green - 65 cm Lv 2 T-band Body Position Sitting Therapeutic Exercises Standing Exercises crab walk Standing Exercise Name athletic position Side bilateral Resistance Green Equipment Used T-band Reps/Minutes 20 ft x 4 Comments small steps Manual Therapy Treatment Soft Tissue Mobilization Psoas Body Location R Psoas Mobilization Type Sustained Pressure Intensity/Depth Deep Body Position Supine PF, glut med Body Location R Glut Med, Piriformis Mobilization Type Cross-Friction,Sustained Pressure Intensity/Depth Moderate Body Position Sidelying PT-OP-T Assessment and Plan Start: 08/21/19 15:30 Freq: Status: Active Protocol: Document 10/13/19 10:40 DCW (Rec: 10/13/19 11:15 DCW [id number]) Physical Therapy Assessment Impairments Impairments Activity Tolerance,Functional Activities,Pain,ROM,Strength, Tone Goals Three Impairment Pt unable to go out dancing with her [facility] Goal (LTG) Pt to tolerate dancing for 45 minutes without increasing her pain LTG Duration 10/23/19 Two Impairment Pt unable to sit in her car longer than 20 minutes without severe pain Usp Goal (LTG) Pt to tolerate sitting in her car for 60 minutes with pain < 4/10 LTG Duration 10/23/19 One Impairment Pt does not have an appropriate HEP Short Term Goal (STG) Pt to be independent and compliant with an appropriate HEP STG Duration 09/22/19 Assessment Summary Assessment Continued with additional core strengthening, pt flexibility improving in right hip, continues to demonstrate some weakness in right vs left. Physical Therapy Plan Frequency and Duration Frequency of Treatment 2x/Week Duration of Treatment 12 weeks Plan of Care Start Date 08/21/19 Plan of Care End Date 11/13/19 Therapeutic Interventions Therapeutic Interventions Aquatic Therapy,Home Exercise Program,Joint Mobilizations, Manual Therapy,Patient/ Caregiver Education,Self-Care/ Home Management,Soft Tissue Mobilization,Therapeutic Activities,Therapeutic Exercises Modalities Cold Pack/Ice Massage,Electric Stimulation,Hot Packs, Traction- Mechanical, Ultrasound Next Visit Focus/Plan Next Note Type Treatment Note Next Visit Plan Assess response to added seated SB with TB pull down/ oblique chop and single leg hip hinge. Next tx add shuttle balance NBOS EC. Next tx assess elliptical, spin and treadmill cardio to apply as at home to add to HEP . Continue per PT POC: Flexibility, STM, manual traction
--- NOTE | 2019-10-15 09:45 | PT.OTN ---
Current Diagnoses Osteoarthritis of hip, unspecified (10/15/19) Pain in right hip (10/15/19) Pain in left hip (10/15/19) Intervertebral disc disorders with myelopathy, lumbar region (10/15/19) Lumbago with sciatica, unspecified side (10/15/19) Physical Therapy Treatment Note PT-OP-A Visit Information Start: 08/21/19 15:30 Freq: Status: Active Protocol: Document 10/15/19 09:06 SP (Rec: 10/15/19 11:51 SP [id number]) Out-Patient Physical Therapy Visit Information Visit Information Visit Type Treatment Note Visit Start Time 09:06 Visit Stop Time 09:45 Total Visit Minutes 39 Visit Number 13 Number of SEISMIC PROSPECTING SUPERVISOR Visits 1 PT-OP-B Current Condition Start: 08/21/19 15:30 Freq: Status: Active Protocol: Document 08/21/19 15:30 DCW (Rec: 08/21/19 17:32 DCW [id number]) Current Condition History of Current Condition Onset Date Multi-year history Current Complaints low back and bilateral hip pain History of Current Condition Pt is a 58 year old female with a long history of low back and hip pain. Pt reports she has twice had a partial dislocation of her right hip, happening once in the 90s and once in the last decade. 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 Pt notes that this caused so much degeneration in my knees that when I was in my 30s, I couldn't go up and down stairs. Pt reports that since beginning Glucosamine and chondroitin, this has faded, and she is more mobile. She has recently been suffering an increase in bilateral posterior hip pain, especially with extended sitting, or trying to stand up after extended sitting. Pt also reports burning in the back of her hips, L>R. Pt reports that her PCP recently increased her Celebrex, which helped some, but just this past weekend, took a ferry to [place], and after sitting/ lying down for the trip, could barely walk off the ferry she was so stiff and sore. She is currently feeling improved, but everything just feels so tight. Prior Treatments and Tests Hip x-ray: IMPRESSION: Mild bilateral hip degeneration, probably age-appropriate. If the patient's pain or other symptoms persist, consider further evaluation with MRI. Per: Danny Mccullough M.D. on 08/2019 Lumbar x-ray: IMPRESSION: Multilevel moderate lumbar spondylosis and facet arthropathy. Levoscoliosis. Per: Danny Mccullough M.D. on 08/2019 Future Testing and Treatments Planned Possible further evaluation with MRI, per radiologist report PT-OP-C Subjective Start: 08/21/19 15:30 Freq: Status: Active Protocol: Document 10/15/19 09:06 SP (Rec: 10/15/19 11:51 SP [id number]) OP-PT Subjective Patient Comments Patient Comments Pt reported stiff pre PT but able to use bathroom facilities without B hip pressure discomfort and able to get out of bed with decreased B hip pain, so much better. Patient Reported Progress Improving PT-OP-F Manual Assessment Start: 08/21/19 15:30 Freq: Status: Active Protocol: Document 08/21/19 15:30 DCW (Rec: 08/21/19 17:32 DCW [id number]) Manual Assessments Soft Tissue Assessment Soft Tissue Mobility Assessment Tenderness to palpation 2/4 - Pain with wincing: Bilateral QL, bilateral ITB, right hip adductors Tenderness to palpation 3/4 - Wincing and withdraw: Bilateral piriformis, bilateral psoas Moderate-sever tone along bilateral posterior, lateral, and anterior hips, L>R Joint Mobility Assessment Joint Mobility Assessment Apprehension on R with RAMONA, some clunking and report of pain with right labral grind test PT-OP-K Range of Motion Start: 08/21/19 15:30 Freq: Status: Active Protocol: Document 08/21/19 15:30 DCW (Rec: 08/21/19 17:32 DCW [id number]) Lumbar Spine Range of Motion Lumbar Spine Active Degrees Testing Position Standing Flexion 60 Extension 16 ROM Limitations Soft Tissue Tightness,Muscle Tone,Pain PT-OP-L Special Tests Start: 08/21/19 15:30 Freq: Status: Active Protocol: Document 08/21/19 15:30 DCW (Rec: 08/21/19 17:32 DCW [id number]) Special Tests Lumbar Spine Special Tests A-P Shearing Test Results Negative Standing Flexion Test Results Negative Straight Leg Raise Test Results Negative Slump Test Results Negative Manual Traction Test Results Negative Compression Test Results Negative Hip Special Tests Lateral SI Compression Test Results Negative Piriformis Test Results Positive bilaterally RAMONA Test Results Positive ipsilateral pain left , sudden severe apprehension on R PT-OP-M Strength Start: 08/21/19 15:30 Freq: Status: Active Protocol: Document 08/21/19 15:30 DCW (Rec: 08/21/19 17:32 DCW [id number]) Knee Strength Knee Manual Muscle Testing Bilateral Comments All LE MMT 5/5 bilaterally except: Left knee flexion 4-/5 PT-OP-Q Treatments Start: 08/21/19 15:30 Freq: Status: Active Protocol: Document 10/15/19 09:06 SP (Rec: 10/15/19 11:51 SP [id number]) Cardio Equipment Elliptical Duration (Minutes) 6 Resistance 5 Other cued PPT/ upright posture Gym Equipment Shuttle Balance Red Details NBOS, Staggered, Lateral weight shift Comments Cued BLe wt COG over [place], glut facil, knee more extension ( head turns,EC) Therapeutic Exercises Supine Exercises Bryce stretch Side bilateral Reps/Minutes 30 x3 Standing Exercises hip flex lunge stretch Standing Exercise Name prox quad, psoas/iliacus Side right Reps/Minutes 30 x3 single leg hip hinge Side bilateral Reps/Minutes 2x5 Comments cued level pelvis neutral spine (dowel initially) tap chair UE Manual Therapy Treatment Soft Tissue Mobilization Psoas Body Location R Psoas, iliacus Mobilization Type Sustained Pressure Intensity/Depth Deep Body Position Supine Joint Mobilizations R hip Direction inf/lat Grade II Body Position Supine PT-OP-T Assessment and Plan Start: 08/21/19 15:30 Freq: Status: Active Protocol: Document 10/15/19 09:06 SP (Rec: 10/15/19 11:51 SP [id number]) Physical Therapy Assessment Goals Three Impairment Pt unable to go out dancing with her Senior Living Goal (LTG) Pt to tolerate dancing for 45 minutes without increasing her pain LTG Duration 10/23/19 Two Impairment Pt unable to sit in her car longer than 20 minutes without severe pain Mail Handler Assistant Goal (LTG) Pt to tolerate sitting in her car for 60 minutes with pain < 4/10 LTG Duration 10/23/19 One Impairment Pt does not have an appropriate HEP Short Term Goal (STG) Pt to be independent and compliant with an appropriate HEP STG Duration 09/22/19 Assessment Summary Assessment Tx focused on elliptical proper use with back alignment for home use + feedback, stretching and manual STMs to anterior R hip and added hip flex stretch lunge stretch + feedback. Cued for SL hip hinge HEP review with cue for level pelvis and knee stability improved in demonstration. Pt was ableto improve shuttle balance today head turns and EC NBOS with glut activation cuing for decrease lateral shifting movement control. Pt had + results with hip mobs as well. Physical Therapy Plan Frequency and Duration Frequency of Treatment 2x/Week Duration of Treatment 12 weeks Plan of Care Start Date 08/21/19 Plan of Care End Date 11/13/19 Therapeutic Interventions Therapeutic Interventions Aquatic Therapy,Home Exercise Program,Joint Mobilizations, Manual Therapy,Patient/ Caregiver Education,Self-Care/ Home Management,Soft Tissue Mobilization,Therapeutic Activities,Therapeutic Exercises Modalities Cold Pack/Ice Massage,Electric Stimulation,Hot Packs, Traction- Mechanical, Ultrasound Next Visit Focus/Plan Next Note Type Treatment Note Next Visit Plan Assess added hip flex lunge stretch last tx. Next tx added lateral hip self mobs (lifting straps in quadruped for self application ). Continue per PT POC: Flexibility, STM, manual traction
--- NOTE | 2019-10-20 11:14 | PT.OTN ---
Current Diagnoses Osteoarthritis of hip, unspecified (10/20/19) Pain in right hip (10/20/19) Pain in left hip (10/20/19) Intervertebral disc disorders with myelopathy, lumbar region (10/20/19) Lumbago with sciatica, unspecified side (10/20/19) Physical Therapy Treatment Note PT-OP-A Visit Information Start: 08/21/19 15:30 Freq: Status: Active Protocol: Document 10/20/19 10:40 DCW (Rec: 10/20/19 11:14 DCW [id number]) Out-Patient Physical Therapy Visit Information Visit Information Visit Type Treatment Note Visit Note 10 min late Visit Start Time 10:40 Visit Stop Time 11:15 Total Visit Minutes 35 Visit Number 14 Number of SORT SUPERVISOR Visits 0 Evaluation Information Evaluation Date 08/21/19 PT-OP-B Current Condition Start: 08/21/19 15:30 Freq: Status: Active Protocol: Document 08/21/19 15:30 DCW (Rec: 08/21/19 17:32 DCW [id number]) Current Condition History of Current Condition Onset Date Multi-year history Current Complaints low back and bilateral hip pain History of Current Condition Pt is a 58 year old female with a long history of low back and hip pain. Pt reports she has twice had a partial dislocation of her right hip, happening once in the 90s and once in the last decade. 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 Pt notes that this caused so much degeneration in my knees that when I was in my 30s, I couldn't go up and down stairs. Pt reports that since beginning Glucosamine and chondroitin, this has faded, and she is more mobile. She has recently been suffering an increase in bilateral posterior hip pain, especially with extended sitting, or trying to stand up after extended sitting. Pt also reports burning in the back of her hips, L>R. Pt reports that her PCP recently increased her Celebrex, which helped some, but just this past weekend, took a ferry to [place], and after sitting/ lying down for the trip, could barely walk off the ferry she was so stiff and sore. She is currently feeling improved, but everything just feels so tight. Prior Treatments and Tests Hip x-ray: IMPRESSION: Mild bilateral hip degeneration, probably age-appropriate. If the patient's pain or other symptoms persist, consider further evaluation with MRI. Per: Danny Mccullough M.D. on 08/2019 Lumbar x-ray: IMPRESSION: Multilevel moderate lumbar spondylosis and facet arthropathy. Levoscoliosis. Per: Danny Mccullough M.D. on 08/2019 Future Testing and Treatments Planned Possible further evaluation with MRI, per radiologist report PT-OP-C Subjective Start: 08/21/19 15:30 Freq: Status: Active Protocol: Document 10/20/19 10:40 DCW (Rec: 10/20/19 11:14 DCW [id number]) OP-PT Subjective Patient Comments Patient Comments Pt reports that she is not quite awake today. Notes that she is getting better, but it is really slow. PT-OP-F Manual Assessment Start: 08/21/19 15:30 Freq: Status: Active Protocol: Document 08/21/19 15:30 DCW (Rec: 08/21/19 17:32 DCW [id number]) Manual Assessments Soft Tissue Assessment Soft Tissue Mobility Assessment Tenderness to palpation 2/4 - Pain with wincing: Bilateral QL, bilateral ITB, right hip adductors Tenderness to palpation 3/4 - Wincing and withdraw: Bilateral piriformis, bilateral psoas Moderate-sever tone along bilateral posterior, lateral, and anterior hips, L>R Joint Mobility Assessment Joint Mobility Assessment Apprehension on R with RAMONA, some clunking and report of pain with right labral grind test PT-OP-K Range of Motion Start: 08/21/19 15:30 Freq: Status: Active Protocol: Document 08/21/19 15:30 DCW (Rec: 08/21/19 17:32 DCW [id number]) Lumbar Spine Range of Motion Lumbar Spine Active Degrees Testing Position Standing Flexion 60 Extension 16 ROM Limitations Soft Tissue Tightness,Muscle Tone,Pain PT-OP-L Special Tests Start: 08/21/19 15:30 Freq: Status: Active Protocol: Document 08/21/19 15:30 DCW (Rec: 08/21/19 17:32 DCW [id number]) Special Tests Lumbar Spine Special Tests A-P Shearing Test Results Negative Standing Flexion Test Results Negative Straight Leg Raise Test Results Negative Slump Test Results Negative Manual Traction Test Results Negative Compression Test Results Negative Hip Special Tests Lateral SI Compression Test Results Negative Piriformis Test Results Positive bilaterally RAMONA Test Results Positive ipsilateral pain left , sudden severe apprehension on R PT-OP-M Strength Start: 08/21/19 15:30 Freq: Status: Active Protocol: Document 08/21/19 15:30 DCW (Rec: 08/21/19 17:32 DCW [id number]) Knee Strength Knee Manual Muscle Testing Bilateral Comments All LE MMT 5/5 bilaterally except: Left knee flexion 4-/5 PT-OP-Q Treatments Start: 08/21/19 15:30 Freq: Status: Active Protocol: Document 10/20/19 10:40 DCW (Rec: 10/20/19 11:14 DCW [id number]) Cardio Equipment Elliptical Duration (Minutes) 6 Resistance 5 Other cued PPT/ upright posture Gym Equipment Shuttle Recovery Unlateral squat Resistance 62# Shuttle Recovery Platform Stable Reps/Time 2x10 alternate BLE bilateral squat Resistance 112# Shuttle Recovery Platform Unstable Reps/Time 2x10 Shuttle Balance Red Details Staggered, Lateral weight shift Therapeutic Exercises Supine Exercises Bryce stretch Side bilateral Reps/Minutes 30 x3 1 Supine Exercise Name Piriformis stretch: Figure-4 Side right Reps/Minutes 60 Manual Therapy Treatment Soft Tissue Mobilization Psoas Body Location R Psoas Mobilization Type Sustained Pressure Intensity/Depth Deep Body Position Supine PF, glut med Body Location R Glut Med, Piriformis Mobilization Type Cross-Friction,Sustained Pressure Intensity/Depth Moderate Body Position Sidelying PT-OP-T Assessment and Plan Start: 08/21/19 15:30 Freq: Status: Active Protocol: Document 10/20/19 10:40 DCW (Rec: 10/20/19 11:14 DCW [id number]) Physical Therapy Assessment Goals Three Impairment Pt unable to go out dancing with her Sap Pi Architect Goal (LTG) Pt to tolerate dancing for 45 minutes without increasing her pain LTG Duration 10/23/19 Two Impairment Pt unable to sit in her car longer than 20 minutes without severe pain [facility] Goal (LTG) Pt to tolerate sitting in her car for 60 minutes with pain < 4/10 LTG Duration 10/23/19 One Impairment Pt does not have an appropriate HEP Short Term Goal (STG) Pt to be independent and compliant with an appropriate HEP STG Duration 09/22/19 Assessment Summary Assessment Pt continues to work consistently on HEP, admits she doesn't do every exercise every day, but I do something every day. Pt continuing to report decreased pain and improved mobility. Physical Therapy Plan Frequency and Duration Frequency of Treatment 2x/Week Duration of Treatment 12 weeks Plan of Care Start Date 08/21/19 Plan of Care End Date 11/13/19 Therapeutic Interventions Therapeutic Interventions Aquatic Therapy,Home Exercise Program,Joint Mobilizations, Manual Therapy,Patient/ Caregiver Education,Self-Care/ Home Management,Soft Tissue Mobilization,Therapeutic Activities,Therapeutic Exercises Modalities Cold Pack/Ice Massage,Electric Stimulation,Hot Packs, Traction- Mechanical, Ultrasound Next Visit Focus/Plan Next Note Type Treatment Note Next Visit Plan Assess added hip flex lunge stretch last tx. Next tx added lateral hip self mobs (lifting straps in quadruped for self application ). Continue per PT POC: Flexibility, STM, manual traction
--- NOTE | 2019-10-22 11:28 | PT.OTN ---
Current Diagnoses Osteoarthritis of hip, unspecified (10/22/19) Pain in right hip (10/22/19) Pain in left hip (10/22/19) Intervertebral disc disorders with myelopathy, lumbar region (10/22/19) Lumbago with sciatica, unspecified side (10/22/19) Physical Therapy Treatment Note PT-OP-A Visit Information Start: 08/21/19 15:30 Freq: Status: Active Protocol: Document 10/22/19 10:42 SP (Rec: 10/22/19 11:35 SP [id number]) Out-Patient Physical Therapy Visit Information Visit Information Visit Type Treatment Note Visit Start Time 10:42 Visit Stop Time 11:28 Total Visit Minutes 46 Visit Number 15 Number of DOUBLE END TENONER SETTER Visits 1 PT-OP-B Current Condition Start: 08/21/19 15:30 Freq: Status: Active Protocol: Document 08/21/19 15:30 DCW (Rec: 08/21/19 17:32 DCW [id number]) Current Condition History of Current Condition Onset Date Multi-year history Current Complaints low back and bilateral hip pain History of Current Condition Pt is a 58 year old female with a long history of low back and hip pain. Pt reports she has twice had a partial dislocation of her right hip, happening once in the 90s and once in the last decade. 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 Pt notes that this caused so much degeneration in my knees that when I was in my 30s, I couldn't go up and down stairs. Pt reports that since beginning Glucosamine and chondroitin, this has faded, and she is more mobile. She has recently been suffering an increase in bilateral posterior hip pain, especially with extended sitting, or trying to stand up after extended sitting. Pt also reports burning in the back of her hips, L>R. Pt reports that her PCP recently increased her Celebrex, which helped some, but just this past weekend, took a ferry to [place], and after sitting/ lying down for the trip, could barely walk off the ferry she was so stiff and sore. She is currently feeling improved, but everything just feels so tight. Prior Treatments and Tests Hip x-ray: IMPRESSION: Mild bilateral hip degeneration, probably age-appropriate. If the patient's pain or other symptoms persist, consider further evaluation with MRI. Per: Danny Mccullough M.D. on 08/2019 Lumbar x-ray: IMPRESSION: Multilevel moderate lumbar spondylosis and facet arthropathy. Levoscoliosis. Per: Danny Mccullough M.D. 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 She stated had to stop x3 ( every 20 min for necessity) during the 1 hr 15 min travel time for recovery on Sunday. was a relax recovery day with couple of exerciese to be active. PT-OP-F Manual Assessment Start: 08/21/19 15:30 Freq: Status: Active Protocol: Document 08/21/19 15:30 DCW (Rec: 08/21/19 17:32 DCW [id number]) Manual Assessments Soft Tissue Assessment Soft Tissue Mobility Assessment Tenderness to palpation 2/4 - Pain with wincing: Bilateral QL, bilateral ITB, right hip adductors Tenderness to palpation 3/4 - Wincing and withdraw: Bilateral piriformis, bilateral psoas Moderate-sever tone along bilateral posterior, lateral, and anterior hips, L>R Joint Mobility Assessment Joint Mobility Assessment Apprehension on R with RAMONA, some clunking and report of pain with right labral grind test PT-OP-K Range of Motion Start: 08/21/19 15:30 Freq: Status: Active Protocol: Document 08/21/19 15:30 DCW (Rec: 08/21/19 17:32 DCW [id number]) Lumbar Spine Range of Motion Lumbar Spine Active Degrees Testing Position Standing Flexion 60 Extension 16 ROM Limitations Soft Tissue Tightness,Muscle Tone,Pain PT-OP-L Special Tests Start: 08/21/19 15:30 Freq: Status: Active Protocol: Document 08/21/19 15:30 DCW (Rec: 08/21/19 17:32 DCW [id number]) Special Tests Lumbar Spine Special Tests A-P Shearing Test Results Negative Standing Flexion Test Results Negative Straight Leg Raise Test Results Negative Slump Test Results Negative Manual Traction Test Results Negative Compression Test Results Negative Hip Special Tests Lateral SI Compression Test Results Negative Piriformis Test Results Positive bilaterally RAMONA Test Results Positive ipsilateral pain left , sudden severe apprehension on R PT-OP-M Strength Start: 08/21/19 15:30 Freq: Status: Active Protocol: Document 08/21/19 15:30 DCW (Rec: 08/21/19 17:32 DCW [id number]) Knee Strength Knee Manual Muscle Testing Bilateral Comments All LE MMT 5/5 bilaterally except: Left knee flexion 4-/5 PT-OP-Q Treatments Start: 08/21/19 15:30 Freq: Status: Active Protocol: Document 10/22/19 10:42 SP (Rec: 10/22/19 11:35 SP [id number]) Cardio Equipment Elliptical Duration (Minutes) 8 Resistance 5 Other cued PPT/ upright posture Gym Equipment Shuttle Recovery unilateral sidelying Details sidelying, cued knee alignment with ankle/hip Resistance 50# Shuttle Recovery Platform Stable Reps/Time x5 Unlateral squat Resistance 62# Shuttle Recovery Platform Stable Reps/Time 2x10 alternate BLE bilateral squat Resistance 112# Shuttle Recovery Platform Unstable Reps/Time 2x10 Therapeutic Exercises Supine Exercises Bryce stretch Side bilateral Reps/Minutes 30 x3 Sitting Exercises PF stretch Sitting Exercise Name Piriformis stretch: Figure-4, [id number] shoulder Side bilateral Reps/Minutes 30 x2 Standing Exercises bridge hip abd TB Resistance Tb #2 Equipment Used belarusian ball Reps/Minutes 2x10 Comments cued seated <> supine bridge positioning standing hip abd Standing Exercise Name 4 way hip (flex, ext, abd, add ) Side bilateral Resistance #2 TB Equipment Used contact support for bal Reps/Minutes x10 each direction Comments cued upright posture and PPT awareness todecrease LB recruitment PT-OP-T Assessment and Plan Start: 08/21/19 15:30 Freq: Status: Active Protocol: Document 10/22/19 10:42 SP (Rec: 10/22/19 11:35 SP [id number]) Physical Therapy Assessment Goals Three Impairment Pt unable to go out dancing with her Personal Vehicle Advisor Goal (LTG) Pt to tolerate dancing for 45 minutes without increasing her pain LTG Duration 10/23/19 Two Impairment Pt unable to sit in her car longer than 20 minutes without severe pain Residential Goal (LTG) Pt to tolerate sitting in her car for 60 minutes with pain < 4/10 LTG Duration 10/23/19 One Impairment Pt does not have an appropriate HEP Short Term Goal (STG) Pt to be independent and compliant with an appropriate HEP STG Duration 09/22/19 Assessment Summary Assessment Tx focused on incorporating core, glut strengthening with balance today and positional sidelying shuttle recovery for home application due to plateform small and irritates knees. Pt reported feels alot looser and muscle tiring, very helpful toward gym program at home. Physical Therapy Plan Frequency and Duration Frequency of Treatment 2x/Week Duration of Treatment 12 weeks Plan of Care Start Date 08/21/19 Plan of Care End Date 11/13/19 Therapeutic Interventions Therapeutic Interventions Aquatic Therapy,Home Exercise Program,Joint Mobilizations, Manual Therapy,Patient/ Caregiver Education,Self-Care/ Home Management,Soft Tissue Mobilization,Therapeutic Activities,Therapeutic Exercises Modalities Cold Pack/Ice Massage,Electric Stimulation,Hot Packs, Traction- Mechanical, Ultrasound Next Visit Focus/Plan Next Note Type Treatment Note Next Visit Plan Assess added 4 way hip, bridge SB hip abd last tx and tolerance at home. Next tx added lateral hip self mobs (lifting straps in quadruped for self application ). Continue per PT POC: Flexibility, STM, manual traction
--- NOTE | 2019-10-27 11:17 | PT.OTN ---
Current Diagnoses Osteoarthritis of hip, unspecified (10/27/19) Pain in right hip (10/27/19) Pain in left hip (10/27/19) Intervertebral disc disorders with myelopathy, lumbar region (10/27/19) Lumbago with sciatica, unspecified side (10/27/19) Physical Therapy Treatment Note PT-OP-A Visit Information Start: 08/21/19 15:30 Freq: Status: Active Protocol: Document 10/27/19 10:38 DCW (Rec: 10/27/19 11:17 DCW [id number]) Out-Patient Physical Therapy Visit Information Visit Information Visit Type Treatment Note Visit Note 8 min late Visit Start Time 10:38 Visit Stop Time 11:15 Total Visit Minutes 37 Visit Number 16 Number of EMERGENCY MEDICAL DISPATCHER Visits 0 Evaluation Information Evaluation Date 08/21/19 PT-OP-B Current Condition Start: 08/21/19 15:30 Freq: Status: Active Protocol: Document 08/21/19 15:30 DCW (Rec: 08/21/19 17:32 DCW [id number]) Current Condition History of Current Condition Onset Date Multi-year history Current Complaints low back and bilateral hip pain History of Current Condition Pt is a 58 year old female with a long history of low back and hip pain. Pt reports she has twice had a partial dislocation of her right hip, happening once in the 90s and once in the last decade. 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 Pt notes that this caused so much degeneration in my knees that when I was in my 30s, I couldn't go up and down stairs. Pt reports that since beginning Glucosamine and chondroitin, this has faded, and she is more mobile. She has recently been suffering an increase in bilateral posterior hip pain, especially with extended sitting, or trying to stand up after extended sitting. Pt also reports burning in the back of her hips, L>R. Pt reports that her PCP recently increased her Celebrex, which helped some, but just this past weekend, took a ferry to [place], and after sitting/ lying down for the trip, could barely walk off the ferry she was so stiff and sore. She is currently feeling improved, but everything just feels so tight. Prior Treatments and Tests Hip x-ray: IMPRESSION: Mild bilateral hip degeneration, probably age-appropriate. If the patient's pain or other symptoms persist, consider further evaluation with MRI. Per: Danny Mccullough M.D. on 08/2019 Lumbar x-ray: IMPRESSION: Multilevel moderate lumbar spondylosis and facet arthropathy. Levoscoliosis. Per: Danny Mccullough M.D. on 08/2019 Future Testing and Treatments Planned Possible further evaluation with MRI, per radiologist report PT-OP-C Subjective Start: 08/21/19 15:30 Freq: Status: Active Protocol: Document 10/27/19 10:38 DCW (Rec: 10/27/19 11:17 DCW [id number]) OP-PT Subjective Patient Comments Patient Comments I can tell I'm getting better , it just feels slow. PT-OP-F Manual Assessment Start: 08/21/19 15:30 Freq: Status: Active Protocol: Document 08/21/19 15:30 DCW (Rec: 08/21/19 17:32 DCW [id number]) Manual Assessments Soft Tissue Assessment Soft Tissue Mobility Assessment Tenderness to palpation 2/4 - Pain with wincing: Bilateral QL, bilateral ITB, right hip adductors Tenderness to palpation 3/4 - Wincing and withdraw: Bilateral piriformis, bilateral psoas Moderate-sever tone along bilateral posterior, lateral, and anterior hips, L>R Joint Mobility Assessment Joint Mobility Assessment Apprehension on R with RAMONA, some clunking and report of pain with right labral grind test PT-OP-K Range of Motion Start: 08/21/19 15:30 Freq: Status: Active Protocol: Document 08/21/19 15:30 DCW (Rec: 08/21/19 17:32 DCW [id number]) Lumbar Spine Range of Motion Lumbar Spine Active Degrees Testing Position Standing Flexion 60 Extension 16 ROM Limitations Soft Tissue Tightness,Muscle Tone,Pain PT-OP-L Special Tests Start: 08/21/19 15:30 Freq: Status: Active Protocol: Document 08/21/19 15:30 DCW (Rec: 08/21/19 17:32 DCW [id number]) Special Tests Lumbar Spine Special Tests A-P Shearing Test Results Negative Standing Flexion Test Results Negative Straight Leg Raise Test Results Negative Slump Test Results Negative Manual Traction Test Results Negative Compression Test Results Negative Hip Special Tests Lateral SI Compression Test Results Negative Piriformis Test Results Positive bilaterally RAMONA Test Results Positive ipsilateral pain left , sudden severe apprehension on R PT-OP-M Strength Start: 08/21/19 15:30 Freq: Status: Active Protocol: Document 08/21/19 15:30 DCW (Rec: 08/21/19 17:32 DCW [id number]) Knee Strength Knee Manual Muscle Testing Bilateral Comments All LE MMT 5/5 bilaterally except: Left knee flexion 4-/5 PT-OP-Q Treatments Start: 08/21/19 15:30 Freq: Status: Active Protocol: Document 10/27/19 10:38 DCW (Rec: 10/27/19 11:17 DCW [id number]) Cardio Equipment Elliptical Duration (Minutes) 6 Resistance 5 Other cued PPT/ upright posture Gym Equipment Shuttle Recovery unilateral sidelying Details sidelying, cued knee alignment with ankle/hip Resistance 50# Shuttle Recovery Platform Stable Reps/Time x5 Unlateral squat Resistance 62# Shuttle Recovery Platform Stable Reps/Time 2x15 alternate BLE bilateral squat Resistance 112# Shuttle Recovery Platform Unstable Reps/Time 2x15 Shuttle Balance Red Details Staggered, Lateral weight shift Therapeutic Exercises Supine Exercises 1 Supine Exercise Name Piriformis stretch: Figure-4 Side right Reps/Minutes 60 Manual Therapy Treatment Soft Tissue Mobilization Psoas Body Location R Psoas Mobilization Type Sustained Pressure Intensity/Depth Deep Body Position Supine PF, glut med Body Location R Glut Med, Piriformis Mobilization Type Cross-Friction,Sustained Pressure Intensity/Depth Moderate Body Position Sidelying PT-OP-T Assessment and Plan Start: 08/21/19 15:30 Freq: Status: Active Protocol: Document 10/27/19 10:38 DCW (Rec: 10/27/19 11:17 DCW [id number]) Physical Therapy Assessment Goals Three Impairment Pt unable to go out dancing with her Retirement Goal (LTG) Pt to tolerate dancing for 45 minutes without increasing her pain LTG Duration 10/23/19 Two Impairment Pt unable to sit in her car longer than 20 minutes without severe pain Retirement Goal (LTG) Pt to tolerate sitting in her car for 60 minutes with pain < 4/10 LTG Duration 10/23/19 One Impairment Pt does not have an appropriate HEP Short Term Goal (STG) Pt to be independent and compliant with an appropriate HEP STG Duration 09/22/19 Assessment Summary Assessment Continue to work toward providing pt with an independent HEP to hopefully transition to discharge over the next month. Pt showing improvement with mobility and activity tolerance without pain. Physical Therapy Plan Frequency and Duration Frequency of Treatment 2x/Week Duration of Treatment 12 weeks Plan of Care Start Date 08/21/19 Plan of Care End Date 11/13/19 Therapeutic Interventions Therapeutic Interventions Aquatic Therapy,Home Exercise Program,Joint Mobilizations, Manual Therapy,Patient/ Caregiver Education,Self-Care/ Home Management,Soft Tissue Mobilization,Therapeutic Activities,Therapeutic Exercises Modalities Cold Pack/Ice Massage,Electric Stimulation,Hot Packs, Traction- Mechanical, Ultrasound Next Visit Focus/Plan Next Note Type Treatment Note Next Visit Plan Next tx added lateral hip self mobs (lifting straps in quadruped for self application ). Continue per PT POC: Flexibility, STM, manual traction
--- NOTE | 2019-10-31 11:20 | PT.OTN ---
Current Diagnoses Osteoarthritis of hip, unspecified (10/31/19) Pain in right hip (10/31/19) Pain in left hip (10/31/19) Intervertebral disc disorders with myelopathy, lumbar region (10/31/19) Lumbago with sciatica, unspecified side (10/31/19) Physical Therapy Treatment Note PT-OP-A Visit Information Start: 08/21/19 15:30 Freq: Status: Active Protocol: Document 10/31/19 10:36 SP (Rec: 10/31/19 11:37 SP [id number]) Out-Patient Physical Therapy Visit Information Visit Information Visit Type Treatment Note Visit Note 6 min late. Visit Start Time 10:36 Visit Stop Time 11:20 Total Visit Minutes 44 Visit Number 17 Number of HARVEST WORKER Visits 1 PT-OP-B Current Condition Start: 08/21/19 15:30 Freq: Status: Active Protocol: Document 08/21/19 15:30 DCW (Rec: 08/21/19 17:32 DCW [id number]) Current Condition History of Current Condition Onset Date Multi-year history Current Complaints low back and bilateral hip pain History of Current Condition Pt is a 58 year old female with a long history of low back and hip pain. Pt reports she has twice had a partial dislocation of her right hip, happening once in the 90s and once in the last decade. 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 Pt notes that this caused so much degeneration in my knees that when I was in my 30s, I couldn't go up and down stairs. Pt reports that since beginning Glucosamine and chondroitin, this has faded, and she is more mobile. She has recently been suffering an increase in bilateral posterior hip pain, especially with extended sitting, or trying to stand up after extended sitting. Pt also reports burning in the back of her hips, L>R. Pt reports that her PCP recently increased her Celebrex, which helped some, but just this past weekend, took a ferry to [place], and after sitting/ lying down for the trip, could barely walk off the ferry she was so stiff and sore. She is currently feeling improved, but everything just feels so tight. Prior Treatments and Tests Hip x-ray: IMPRESSION: Mild bilateral hip degeneration, probably age-appropriate. If the patient's pain or other symptoms persist, consider further evaluation with MRI. Per: Danny Mccullough M.D. on 08/2019 Lumbar x-ray: IMPRESSION: Multilevel moderate lumbar spondylosis and facet arthropathy. Levoscoliosis. Per: Danny Mccullough M.D. on 08/2019 Future Testing and Treatments Planned Possible further evaluation with MRI, per radiologist report PT-OP-C Subjective Start: 08/21/19 15:30 Freq: Status: Active Protocol: Document 10/31/19 10:36 SP (Rec: 10/31/19 11:37 SP [id number]) OP-PT Subjective Patient Comments Patient Comments Pt reported only stiffness pre PT. 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 Pt stated noticed her voice hasn't been as projected lately as has been in past and wonder why but not out in public talking as much. PT-OP-F Manual Assessment Start: 08/21/19 15:30 Freq: Status: Active Protocol: Document 08/21/19 15:30 DCW (Rec: 08/21/19 17:32 DCW [id number]) Manual Assessments Soft Tissue Assessment Soft Tissue Mobility Assessment Tenderness to palpation 2/4 - Pain with wincing: Bilateral QL, bilateral ITB, right hip adductors Tenderness to palpation 3/4 - Wincing and withdraw: Bilateral piriformis, bilateral psoas Moderate-sever tone along bilateral posterior, lateral, and anterior hips, L>R Joint Mobility Assessment Joint Mobility Assessment Apprehension on R with RAMONA, some clunking and report of pain with right labral grind test PT-OP-K Range of Motion Start: 08/21/19 15:30 Freq: Status: Active Protocol: Document 08/21/19 15:30 DCW (Rec: 08/21/19 17:32 DCW [id number]) Lumbar Spine Range of Motion Lumbar Spine Active Degrees Testing Position Standing Flexion 60 Extension 16 ROM Limitations Soft Tissue Tightness,Muscle Tone,Pain PT-OP-L Special Tests Start: 08/21/19 15:30 Freq: Status: Active Protocol: Document 08/21/19 15:30 DCW (Rec: 08/21/19 17:32 DCW [id number]) Special Tests Lumbar Spine Special Tests A-P Shearing Test Results Negative Standing Flexion Test Results Negative Straight Leg Raise Test Results Negative Slump Test Results Negative Manual Traction Test Results Negative Compression Test Results Negative Hip Special Tests Lateral SI Compression Test Results Negative Piriformis Test Results Positive bilaterally RAMONA Test Results Positive ipsilateral pain left , sudden severe apprehension on R PT-OP-M Strength Start: 08/21/19 15:30 Freq: Status: Active Protocol: Document 08/21/19 15:30 DCW (Rec: 08/21/19 17:32 DCW [id number]) Knee Strength Knee Manual Muscle Testing Bilateral Comments All LE MMT 5/5 bilaterally except: Left knee flexion 4-/5 PT-OP-Q Treatments Start: 08/21/19 15:30 Freq: Status: Active Protocol: Document 10/31/19 10:36 SP (Rec: 10/31/19 11:37 SP [id number]) Cardio Equipment Elliptical Duration (Minutes) 8 Resistance 5 Other good upright posture and PPT awarenes and not needing cues. Gym Equipment Sport Cord 4 way hip Exercise Details cued PPT Cord/Resistance orange (Tb #2 HEP) Reps/Duration 2x10 Manual Therapy Treatment Soft Tissue Mobilization PF, glut med Body Location R Glut Med, Piriformis Mobilization Type Cross-Friction,Sustained Pressure Intensity/Depth Moderate Body Position Sidelying PT-OP-T Assessment and Plan Start: 08/21/19 15:30 Freq: Status: Active Protocol: Document 10/31/19 10:36 SP (Rec: 10/31/19 11:37 SP [id number]) Physical Therapy Assessment Goals Three Impairment Pt unable to go out dancing with her Operator Receptionist Goal (LTG) Pt to tolerate dancing for 45 minutes without increasing her pain LTG Duration 10/23/19 Two Impairment Pt unable to sit in her car longer than 20 minutes without severe pain Operator Receptionist Goal (LTG) Pt to tolerate sitting in her car for 60 minutes with pain < 4/10 LTG Duration 10/23/19 One Impairment Pt does not have an appropriate HEP Short Term Goal (STG) Pt to be independent and compliant with an appropriate HEP STG Duration 09/22/19 Assessment Summary Assessment Tx focused on hip and core strengthening while incorporating stability exercises in standing with improved PPT awareness and self corrections for proper form with decreased LB recruitment during 4 way hip today. Pt stated continues to have R posterolateral and anterior R hip deep tendons pain but not all the time and has noticed improvement since starting PT and coupled with comment of not being able to project voice as much as used to and continued pain seated car rides and very compiant with HEP, unsure if pelvic floor could be involved will suggest to PT to assess. Physical Therapy Plan Frequency and Duration Frequency of Treatment 2x/Week Duration of Treatment 12 weeks Plan of Care Start Date 08/21/19 Plan of Care End Date 11/13/19 Therapeutic Interventions Therapeutic Interventions Aquatic Therapy,Home Exercise Program,Joint Mobilizations, Manual Therapy,Patient/ Caregiver Education,Self-Care/ Home Management,Soft Tissue Mobilization,Therapeutic Activities,Therapeutic Exercises Modalities Cold Pack/Ice Massage,Electric Stimulation,Hot Packs, Traction- Mechanical, Ultrasound Next Visit Focus/Plan Next Note Type Treatment Note Next Visit Plan Please update POC 11/04, expires 11/13 with many HARVEST WORKER tx prior. see print out in chart appts scheduled. Assess pelvic alignment, psoas /glute med/PF or pelvic floor tightness if could be factor causing residual LB and or R hip pain. Next tx added lateral and inferior R hip self mobs ( lifting straps in quadruped for self application). Continue per PT POC: Flexibility, STM, manual traction
--- NOTE | 2019-11-04 15:32 | PT.OTN ---
Current Diagnoses Osteoarthritis of hip, unspecified (11/04/19) Pain in right hip (11/04/19) Pain in left hip (11/04/19) Intervertebral disc disorders with myelopathy, lumbar region (11/04/19) Lumbago with sciatica, unspecified side (11/04/19) Physical Therapy Treatment Note PT-OP-A Visit Information Start: 08/21/19 15:30 Freq: Status: Active Protocol: Document 11/04/19 14:33 DCW (Rec: 11/04/19 15:31 DCW [id number]) Out-Patient Physical Therapy Visit Information Visit Information Visit Type Treatment Note Visit Start Time 14:33 Visit Stop Time 15:15 Total Visit Minutes 42 Visit Number 18 Number of MAT WORKER Visits 0 Evaluation Information Evaluation Date 08/21/19 PT-OP-B Current Condition Start: 08/21/19 15:30 Freq: Status: Active Protocol: Document 08/21/19 15:30 DCW (Rec: 08/21/19 17:32 DCW [id number]) Current Condition History of Current Condition Onset Date Multi-year history Current Complaints low back and bilateral hip pain History of Current Condition Pt is a 58 year old female with a long history of low back and hip pain. Pt reports she has twice had a partial dislocation of her right hip, happening once in the 90s and once in the last decade. 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 Pt notes that this caused so much degeneration in my knees that when I was in my 30s, I couldn't go up and down stairs. Pt reports that since beginning Glucosamine and chondroitin, this has faded, and she is more mobile. She has recently been suffering an increase in bilateral posterior hip pain, especially with extended sitting, or trying to stand up after extended sitting. Pt also reports burning in the back of her hips, L>R. Pt reports that her PCP recently increased her Celebrex, which helped some, but just this past weekend, took a ferry to [place], and after sitting/ lying down for the trip, could barely walk off the ferry she was so stiff and sore. She is currently feeling improved, but everything just feels so tight. Prior Treatments and Tests Hip x-ray: IMPRESSION: Mild bilateral hip degeneration, probably age-appropriate. If the patient's pain or other symptoms persist, consider further evaluation with MRI. Per: Danny Mccullough M.D. on 08/2019 Lumbar x-ray: IMPRESSION: Multilevel moderate lumbar spondylosis and facet arthropathy. Levoscoliosis. Per: Danny Mccullough M.D. on 08/2019 Future Testing and Treatments Planned Possible further evaluation with MRI, per radiologist report PT-OP-C Subjective Start: 08/21/19 15:30 Freq: Status: Active Protocol: Document 11/04/19 14:33 DCW (Rec: 11/04/19 15:31 DCW [id number]) OP-PT Subjective Patient Comments Patient Comments It's clear that everything is getting better. I wish the stiffness were gone, but it's not. I think I'm probably more consious that there is something going on with the low back, maybe it's just because the hips don't bother me as much now. PT-OP-F Manual Assessment Start: 08/21/19 15:30 Freq: Status: Active Protocol: Document 08/21/19 15:30 DCW (Rec: 08/21/19 17:32 DCW [id number]) Manual Assessments Soft Tissue Assessment Soft Tissue Mobility Assessment Tenderness to palpation 2/4 - Pain with wincing: Bilateral QL, bilateral ITB, right hip adductors Tenderness to palpation 3/4 - Wincing and withdraw: Bilateral piriformis, bilateral psoas Moderate-sever tone along bilateral posterior, lateral, and anterior hips, L>R Joint Mobility Assessment Joint Mobility Assessment Apprehension on R with RAMONA, some clunking and report of pain with right labral grind test PT-OP-K Range of Motion Start: 08/21/19 15:30 Freq: Status: Active Protocol: Document 08/21/19 15:30 DCW (Rec: 08/21/19 17:32 DCW [id number]) Lumbar Spine Range of Motion Lumbar Spine Active Degrees Testing Position Standing Flexion 60 Extension 16 ROM Limitations Soft Tissue Tightness,Muscle Tone,Pain PT-OP-L Special Tests Start: 08/21/19 15:30 Freq: Status: Active Protocol: Document 08/21/19 15:30 DCW (Rec: 08/21/19 17:32 DCW [id number]) Special Tests Lumbar Spine Special Tests A-P Shearing Test Results Negative Standing Flexion Test Results Negative Straight Leg Raise Test Results Negative Slump Test Results Negative Manual Traction Test Results Negative Compression Test Results Negative Hip Special Tests Lateral SI Compression Test Results Negative Piriformis Test Results Positive bilaterally RAMONA Test Results Positive ipsilateral pain left , sudden severe apprehension on R PT-OP-M Strength Start: 08/21/19 15:30 Freq: Status: Active Protocol: Document 08/21/19 15:30 DCW (Rec: 08/21/19 17:32 DCW [id number]) Knee Strength Knee Manual Muscle Testing Bilateral Comments All LE MMT 5/5 bilaterally except: Left knee flexion 4-/5 PT-OP-Q Treatments Start: 08/21/19 15:30 Freq: Status: Active Protocol: Document 11/04/19 14:33 DCW (Rec: 11/04/19 15:31 DCW [id number]) Cardio Equipment Bicycle (Upright) Duration (Minutes) 8 Resistance 10 Seat Position 4 Therapeutic Exercises Supine Exercises pelvic tilt/ neutral pelvis Reps/Minutes 5 sec hold x5 Comments VCs for diaphragmatic breathing trans ab Supine Exercise Name drawing in trans ab Reps/Minutes 5 sec x10 Comments slow activation concentric/ eccentric facilitation Sitting Exercises Diaphragmatic Breathing Sitting Exercise Name seated vs towel constriction Manual Therapy Treatment Soft Tissue Mobilization Psoas Body Location R Psoas Mobilization Type Sustained Pressure Intensity/Depth Deep Body Position Supine PF, glut med Body Location R Glut Med, Piriformis Mobilization Type Cross-Friction,Sustained Pressure Intensity/Depth Moderate Body Position Sidelying Joint Mobilizations R hip Joint Acetabular Direction Lateral Grade III Body Position Hooklying Comments /c strap PT-OP-T Assessment and Plan Start: 08/21/19 15:30 Freq: Status: Active Protocol: Document 11/04/19 14:33 DCW (Rec: 11/04/19 15:31 DCW [id number]) Physical Therapy Assessment Goals Three Impairment Pt unable to go out dancing with her Mcfp Goal (LTG) Pt to tolerate dancing for 45 minutes without increasing her pain LTG Duration 10/23/19 Two Impairment Pt unable to sit in her car longer than 20 minutes without severe pain Editing Computer Publisher Goal (LTG) Pt to tolerate sitting in her car for 60 minutes with pain < 4/10 LTG Duration 10/23/19 One Impairment Pt does not have an appropriate HEP Short Term Goal (STG) Pt to be independent and compliant with an appropriate HEP STG Duration 09/22/19 Assessment Summary Assessment Focused a lot today on working on diaphragmatic breathing, decrease pt's tendency for shallow breaths when SOB working out. Physical Therapy Plan Frequency and Duration Frequency of Treatment 2x/Week Duration of Treatment 12 weeks Plan of Care Start Date 08/21/19 Plan of Care End Date 11/13/19 Therapeutic Interventions Therapeutic Interventions Aquatic Therapy,Home Exercise Program,Joint Mobilizations, Manual Therapy,Patient/ Caregiver Education,Self-Care/ Home Management,Soft Tissue Mobilization,Therapeutic Activities,Therapeutic Exercises Modalities Cold Pack/Ice Massage,Electric Stimulation,Hot Packs, Traction- Mechanical, Ultrasound Next Visit Focus/Plan Next Note Type Progress Note Next Visit Plan Please update POC 11/07 expires 11/13 Assess pelvic alignment, psoas /glute med/PF or pelvic floor tightness if could be factor causing residual LB and or R hip pain.
--- NOTE | 2019-11-07 08:15 | PT.OTN ---
Current Diagnoses Osteoarthritis of hip, unspecified (11/07/19) Pain in right hip (11/07/19) Pain in left hip (11/07/19) Intervertebral disc disorders with myelopathy, lumbar region (11/07/19) Lumbago with sciatica, unspecified side (11/07/19) Physical Therapy Treatment Note PT-OP-A Visit Information Start: 08/21/19 15:30 Freq: Status: Active Protocol: Document 11/07/19 08:15 DLM (Rec: 11/07/19 12:33 DLM [id number]) Out-Patient Physical Therapy Visit Information Visit Information Visit Type Treatment Note Visit Start Time 08:15 Visit Stop Time 09:05 Total Visit Minutes 50 Visit Number 19 Number of PLANT OPERATIONS COORDINATOR Visits 0 Evaluation Information Evaluation Date 08/21/19 PT-OP-B Current Condition Start: 08/21/19 15:30 Freq: Status: Active Protocol: Document 08/21/19 15:30 DCW (Rec: 08/21/19 17:32 DCW [id number]) Current Condition History of Current Condition Onset Date Multi-year history Current Complaints low back and bilateral hip pain History of Current Condition Pt is a 58 year old female with a long history of low back and hip pain. Pt reports she has twice had a partial dislocation of her right hip, happening once in the 90s and once in the last decade. 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 Pt notes that this caused so much degeneration in my knees that when I was in my 30s, I couldn't go up and down stairs. Pt reports that since beginning Glucosamine and chondroitin, this has faded, and she is more mobile. She has recently been suffering an increase in bilateral posterior hip pain, especially with extended sitting, or trying to stand up after extended sitting. Pt also reports burning in the back of her hips, L>R. Pt reports that her PCP recently increased her Celebrex, which helped some, but just this past weekend, took a ferry to [place], and after sitting/ lying down for the trip, could barely walk off the ferry she was so stiff and sore. She is currently feeling improved, but everything just feels so tight. Prior Treatments and Tests Hip x-ray: IMPRESSION: Mild bilateral hip degeneration, probably age-appropriate. If the patient's pain or other symptoms persist, consider further evaluation with MRI. Per: Danny Mccullough M.D. on 08/2019 Lumbar x-ray: IMPRESSION: Multilevel moderate lumbar spondylosis and facet arthropathy. Levoscoliosis. Per: Danny Mccullough M.D. on 08/2019 Future Testing and Treatments Planned Possible further evaluation with MRI, per radiologist report PT-OP-C Subjective Start: 08/21/19 15:30 Freq: Status: Active Protocol: Document 11/07/19 08:15 DLM (Rec: 11/07/19 12:33 DLM [id number]) OP-PT Subjective Patient Comments Patient Comments She feels her hips are better but her low back has been bothering her a little more lately. She rode the stationary bike and stretched at home before this visit. Patient Reported Progress Same PT-OP-F Manual Assessment Start: 08/21/19 15:30 Freq: Status: Active Protocol: Document 08/21/19 15:30 DCW (Rec: 08/21/19 17:32 DCW [id number]) Manual Assessments Soft Tissue Assessment Soft Tissue Mobility Assessment Tenderness to palpation 2/4 - Pain with wincing: Bilateral QL, bilateral ITB, right hip adductors Tenderness to palpation 3/4 - Wincing and withdraw: Bilateral piriformis, bilateral psoas Moderate-sever tone along bilateral posterior, lateral, and anterior hips, L>R Joint Mobility Assessment Joint Mobility Assessment Apprehension on R with RAMONA, some clunking and report of pain with right labral grind test PT-OP-K Range of Motion Start: 08/21/19 15:30 Freq: Status: Active Protocol: Document 08/21/19 15:30 DCW (Rec: 08/21/19 17:32 DCW [id number]) Lumbar Spine Range of Motion Lumbar Spine Active Degrees Testing Position Standing Flexion 60 Extension 16 ROM Limitations Soft Tissue Tightness,Muscle Tone,Pain PT-OP-L Special Tests Start: 08/21/19 15:30 Freq: Status: Active Protocol: Document 08/21/19 15:30 DCW (Rec: 08/21/19 17:32 DCW [id number]) Special Tests Lumbar Spine Special Tests A-P Shearing Test Results Negative Standing Flexion Test Results Negative Straight Leg Raise Test Results Negative Slump Test Results Negative Manual Traction Test Results Negative Compression Test Results Negative Hip Special Tests Lateral SI Compression Test Results Negative Piriformis Test Results Positive bilaterally RAMONA Test Results Positive ipsilateral pain left , sudden severe apprehension on R PT-OP-M Strength Start: 08/21/19 15:30 Freq: Status: Active Protocol: Document 08/21/19 15:30 DCW (Rec: 08/21/19 17:32 DCW [id number]) Knee Strength Knee Manual Muscle Testing Bilateral Comments All LE MMT 5/5 bilaterally except: Left knee flexion 4-/5 PT-OP-Q Treatments Start: 08/21/19 15:30 Freq: Status: Active Protocol: Document 11/07/19 08:15 DLM (Rec: 11/07/19 12:33 DLM [id number]) Gym Equipment Shuttle Recovery unilateral sidelying Details sidelying, cued knee alignment with ankle/hip Resistance 50# Shuttle Recovery Platform Stable Reps/Time 10 each side Unlateral squat Resistance 62# Shuttle Recovery Platform Stable Reps/Time 2x15 reps alternate BLE bilateral squat Resistance 112# Shuttle Recovery Platform Unstable Reps/Time 2x15 reps Shuttle Balance Red Details balance and wt shifting Comments ant/post and lateral for hip strengthening and close chain stability, added EC Therapeutic Exercises Standing Exercises Core Stabalization with Marching Equipment Used mirror used Core Stabalization with gait Standing Exercise Name during gait and during static step forward/back Equipment Used mirror used Comments minimizing low back rotation during gait Self-Care/Home Management Treatment Education Other Education use of diaphramatic breathing during exercises PT-OP-T Assessment and Plan Start: 08/21/19 15:30 Freq: Status: Active Protocol: Document 11/07/19 08:15 DLM (Rec: 11/07/19 12:33 DLM [email or web address]) Physical Therapy Assessment Goals Three Impairment Pt unable to go out dancing with her Care Home Goal (LTG) Pt to tolerate dancing for 45 minutes without increasing her pain LTG Duration 10/23/19 Two Impairment Pt unable to sit in her car longer than 20 minutes without severe pain Care Home Goal (LTG) Pt to tolerate sitting in her car for 60 minutes with pain < 4/10 LTG Duration 10/23/19 One Impairment Pt does not have an appropriate HEP Short Term Goal (STG) Pt to be independent and compliant with an appropriate HEP STG Duration 09/22/19 Progress Towards Goals Progress Towards Goals Progressing Toward Goals Assessment Summary Assessment She tolerated treatment session well. She continues to report improvements in her hips. She is more aware of her shallow breathing or holding her breath during ex. She demonstrates excessive lumbar rotation during gait. She reports good compliance with her HEP. Physical Therapy Plan Frequency and Duration Frequency of Treatment 2x/Week Duration of Treatment 12 weeks Plan of Care Start Date 08/21/19 Plan of Care End Date 11/13/19 Therapeutic Interventions Therapeutic Interventions Aquatic Therapy,Home Exercise Program,Joint Mobilizations, Manual Therapy,Patient/ Caregiver Education,Self-Care/ Home Management,Soft Tissue Mobilization,Therapeutic Activities,Therapeutic Exercises Modalities Cold Pack/Ice Massage,Electric Stimulation,Hot Packs, Traction- Mechanical, Ultrasound Next Visit Focus/Plan Next Note Type Progress Note Next Visit Plan Plan of care expires 11/13, pt seen on 11/12/19. Continue core stabalization
--- NOTE | 2019-11-12 17:47 | PT.OTN ---
Current Diagnoses Osteoarthritis of hip, unspecified (11/12/19) Pain in right hip (11/12/19) Pain in left hip (11/12/19) Intervertebral disc disorders with myelopathy, lumbar region (11/12/19) Lumbago with sciatica, unspecified side (11/12/19) Physical Therapy Treatment Note PT-OP-A Visit Information Start: 08/21/19 15:30 Freq: Status: Active Protocol: Document 11/12/19 09:55 DCW (Rec: 11/12/19 17:47 DCW [id number]) Out-Patient Physical Therapy Visit Information Visit Information Visit Type Progress Note Visit Note 10 minutees late Visit Start Time 09:55 Visit Stop Time 10:30 Total Visit Minutes 35 Visit Number 20 Number of CLASSIFIED ADVERTISING CLERK Visits 0 Evaluation Information Evaluation Date 08/21/19 PT-OP-B Current Condition Start: 08/21/19 15:30 Freq: Status: Active Protocol: Document 08/21/19 15:30 DCW (Rec: 08/21/19 17:32 DCW [id number]) Current Condition History of Current Condition Onset Date Multi-year history Current Complaints low back and bilateral hip pain History of Current Condition Pt is a 58 year old female with a long history of low back and hip pain. Pt reports she has twice had a partial dislocation of her right hip, happening once in the 90s and once in the last decade. 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 Pt notes that this caused so much degeneration in my knees that when I was in my 30s, I couldn't go up and down stairs. Pt reports that since beginning Glucosamine and chondroitin, this has faded, and she is more mobile. She has recently been suffering an increase in bilateral posterior hip pain, especially with extended sitting, or trying to stand up after extended sitting. Pt also reports burning in the back of her hips, L>R. Pt reports that her PCP recently increased her Celebrex, which helped some, but just this past weekend, took a ferry to [place], and after sitting/ lying down for the trip, could barely walk off the ferry she was so stiff and sore. She is currently feeling improved, but everything just feels so tight. Prior Treatments and Tests Hip x-ray: IMPRESSION: Mild bilateral hip degeneration, probably age-appropriate. If the patient's pain or other symptoms persist, consider further evaluation with MRI. Per: Danny Mccullough M.D. on 08/2019 Lumbar x-ray: IMPRESSION: Multilevel moderate lumbar spondylosis and facet arthropathy. Levoscoliosis. Per: Danny Mccullough M.D. on 08/2019 Future Testing and Treatments Planned Possible further evaluation with MRI, per radiologist report PT-OP-C Subjective Start: 08/21/19 15:30 Freq: Status: Active Protocol: Document 11/12/19 09:55 DCW (Rec: 11/12/19 17:47 DCW [id number]) OP-PT Subjective Patient Comments Patient Comments Pt feels like things are improving overall, but still feels really stiff through her hips and low back. PT-OP-F Manual Assessment Start: 08/21/19 15:30 Freq: Status: Active Protocol: Document 11/12/19 09:55 DCW (Rec: 11/12/19 10:23 DCW [id number]) Manual Assessments Soft Tissue Assessment Soft Tissue Mobility Assessment Tenderness to palpation 1/4 - Complaint of Pain: L QL, right hip adductors Tenderness to palpation 2/4 - Pain with wincing: Bilateral piriformis, bilateral psoas Moderate-sever tone along bilateral posterior, lateral, and anterior hips, L>R Joint Mobility Assessment Joint Mobility Assessment Hypomobility throughout lumbar spine. PT-OP-G Mobility & Gait Start: 11/12/19 17:28 Freq: Status: Active Protocol: Document 11/12/19 09:55 DCW (Rec: 11/12/19 17:32 DCW [id number]) OP Gait Assessment Gait Deviations General Gait Pattern Flexed Trunk,Lateral Trunk Lean Comments Gait Comments During gait, pt demonstrates increased lumbar rotation and a mild left lateral flexion. PT-OP-K Range of Motion Start: 08/21/19 15:30 Freq: Status: Active Protocol: Document 11/12/19 09:55 DCW (Rec: 11/12/19 10:23 DCW [id number]) Lumbar Spine Range of Motion Lumbar Spine Active Degrees Testing Position Standing Flexion 60 Extension 5 ROM Limitations Soft Tissue Tightness,Muscle Tone,Pain Comments Nearly entire extension ROM is from her thoracic spine, minimal motion in lumbar PT-OP-L Special Tests Start: 08/21/19 15:30 Freq: Status: Active Protocol: Document 11/12/19 09:55 DCW (Rec: 11/12/19 10:23 DCW [id number]) Special Tests Hip Special Tests Lateral SI Compression Test Results Negative Piriformis Test Results Negative RAMONA Test Results Positive ipsilateral pain left Other Special Tests Special Tests Pt exhibits significant accessory muscle breathing PT-OP-M Strength Start: 08/21/19 15:30 Freq: Status: Active Protocol: Document 11/12/19 09:55 DCW (Rec: 11/12/19 10:23 DCW [id number]) Knee Strength Knee Manual Muscle Testing Bilateral Comments All LE MMT 5/5 bilaterally except: Left knee flexion 4/5 PT-OP-Q Treatments Start: 08/21/19 15:30 Freq: Status: Active Protocol: Document 11/12/19 09:55 DCW (Rec: 11/12/19 17:47 DCW [id number]) Manual Therapy Treatment Other Other Manual Treatments MMT, ROM, Gait, and Special testing Self-Care/Home Management Treatment Education Other Education use of diaphramatic breathing during exercises PT-OP-T Assessment and Plan Start: 08/21/19 15:30 Freq: Status: Active Protocol: Document 11/12/19 09:55 DCW (Rec: 11/12/19 17:47 DCW [id number]) Physical Therapy Assessment Impairments Impairments Activity Tolerance,Functional Activities,Pain,ROM,Strength, Tone Goals Three Impairment Pt unable to go out dancing with her Prison Goal (LTG) Pt to tolerate dancing for 45 minutes without increasing her pain LTG Duration 01/11/20 - Improving Two Impairment Pt unable to sit in her car longer than 30 minutes without moderate pain Prison Goal (LTG) Pt to tolerate sitting in her car for 60 minutes with pain < 4/10 LTG Duration 01/11/20 - Improving One Impairment Pt does not have an appropriate HEP Short Term Goal (STG) Pt to be independent and compliant with an appropriate HEP STG Duration 12/11/19 Progress Towards Goals Progress Towards Goals Progressing Toward Goals Assessment Summary Assessment Pt overall making great progress, substantial decrease in tone and tenderness along hip and paraspinals since initial evaluation. Pt continues to struggle with proper diaphragmatic breathing techniques and her gait pattern, which results in poor core contraction and increases her hip instability. Pt is able to correct both her breathing and gait with verbal cues and constant thought, however as soon as she loses concentration, both return to her normal dysfunction. Pt should continue to benefit from skilled therapy focusing on decreasing muscle tone, improving gait and breathing technique, and improving core and hip stability. Physical Therapy Plan Frequency and Duration Frequency of Treatment 2x/Week Duration of Treatment 12 weeks Plan of Care Start Date 11/12/19 Plan of Care End Date 02/04/20 Therapeutic Interventions Therapeutic Interventions Aquatic Therapy,Home Exercise Program,Joint Mobilizations, Manual Therapy,Patient/ Caregiver Education,Self-Care/ Home Management,Soft Tissue Mobilization,Therapeutic Activities,Therapeutic Exercises Modalities Cold Pack/Ice Massage,Electric Stimulation,Hot Packs, Traction- Mechanical, Ultrasound Next Visit Focus/Plan Next Note Type Treatment Note Next Visit Plan Continue core stabalization, breathing techniques, and gait training.
--- NOTE | 2019-11-12 17:47 | PT.OPPOC ---
Physical, Occupational & Speech Therapy At [facility] Current Diagnoses Osteoarthritis of hip, unspecified (11/12/19) Pain in right hip (11/12/19) Pain in left hip (11/12/19) Intervertebral disc disorders with myelopathy, lumbar region (11/12/19) Lumbago with sciatica, unspecified side (11/12/19) Visit Care Team Role Provider Type Jersey Price MD Attending Provider Physician Primary Care Provider Specialty: [facility] Address: [address] [place] [address], [facility] Email: [email or web address] Plan Of Care PT-OP-T Assessment and Plan Start: 08/21/19 15:30 Freq: Status: Active Protocol: Document 11/12/19 09:55 DCW (Rec: 11/12/19 17:47 DCW [id number]) Physical Therapy Assessment Impairments Impairments Activity Tolerance,Functional Activities,Pain,ROM,Strength, Tone Goals Three Impairment Pt unable to go out dancing with her Half-Way Goal (LTG) Pt to tolerate dancing for 45 minutes without increasing her pain LTG Duration 01/11/20 - Improving Two Impairment Pt unable to sit in her car longer than 30 minutes without moderate pain Half-Way Goal (LTG) Pt to tolerate sitting in her car for 60 minutes with pain < 4/10 LTG Duration 01/11/20 - Improving One Impairment Pt does not have an appropriate HEP Short Term Goal (STG) Pt to be independent and compliant with an appropriate HEP STG Duration 12/11/19 Progress Towards Goals Progress Towards Goals Progressing Toward Goals Assessment Summary Assessment Pt overall making great progress, substantial decrease in tone and tenderness along hip and paraspinals since initial evaluation. Pt continues to struggle with proper diaphragmatic breathing techniques and her gait pattern, which results in poor core contraction and increases her hip instability. Pt is able to correct both her breathing and gait with verbal cues and constant thought, however as soon as she loses concentration, both return to her normal dysfunction. Pt should continue to benefit from skilled therapy focusing on decreasing muscle tone, improving gait and breathing technique, and improving core and hip stability. Physical Therapy Plan Frequency and Duration Frequency of Treatment 2x/Week Duration of Treatment 12 weeks Plan of Care Start Date 11/12/19 Plan of Care End Date 02/04/20 Therapeutic Interventions Therapeutic Interventions Aquatic Therapy,Home Exercise Program,Joint Mobilizations, Manual Therapy,Patient/ Caregiver Education,Self-Care/ Home Management,Soft Tissue Mobilization,Therapeutic Activities,Therapeutic Exercises Modalities Cold Pack/Ice Massage,Electric Stimulation,Hot Packs, Traction- Mechanical, Ultrasound Next Visit Focus/Plan Next Note Type Treatment Note Next Visit Plan Continue core stabalization, breathing techniques, and gait training. Plan of Care Dates Plan of Care Start Date 11/12/19 Plan of Care End Date 02/04/20 Electronically Signed by: Rudi Doyle, PT 11/12/19 [id number] Please Sign and Return: I have reviewed this Plan of Care and certify that the skilled therapy services above are required to meet the patient?s needs. Physician Signature Date Printed Name and Credentials Clinical Instructor Signature Printed Name and Credentials
--- NOTE | 2019-11-14 08:15 | PT.OTN ---
Current Diagnoses Osteoarthritis of hip, unspecified (11/14/19) Pain in right hip (11/14/19) Pain in left hip (11/14/19) Intervertebral disc disorders with myelopathy, lumbar region (11/14/19) Lumbago with sciatica, unspecified side (11/14/19) Physical Therapy Treatment Note PT-OP-A Visit Information Start: 08/21/19 15:30 Freq: Status: Active Protocol: Document 11/14/19 07:33 SP (Rec: 11/14/19 08:19 SP [id number]) Out-Patient Physical Therapy Visit Information Visit Information Visit Type Treatment Note Visit Start Time 07:33 Visit Stop Time 08:15 Total Visit Minutes 42 Visit Number 21 Number of PETAL CUTTER Visits 1 PT-OP-B Current Condition Start: 08/21/19 15:30 Freq: Status: Active Protocol: Document 08/21/19 15:30 DCW (Rec: 08/21/19 17:32 DCW [id number]) Current Condition History of Current Condition Onset Date Multi-year history Current Complaints low back and bilateral hip pain History of Current Condition Pt is a 58 year old female with a long history of low back and hip pain. Pt reports she has twice had a partial dislocation of her right hip, happening once in the 90s and once in the last decade. 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 Pt notes that this caused so much degeneration in my knees that when I was in my 30s, I couldn't go up and down stairs. Pt reports that since beginning Glucosamine and chondroitin, this has faded, and she is more mobile. She has recently been suffering an increase in bilateral posterior hip pain, especially with extended sitting, or trying to stand up after extended sitting. Pt also reports burning in the back of her hips, L>R. Pt reports that her PCP recently increased her Celebrex, which helped some, but just this past weekend, took a ferry to [place], and after sitting/ lying down for the trip, could barely walk off the ferry she was so stiff and sore. She is currently feeling improved, but everything just feels so tight. Prior Treatments and Tests Hip x-ray: IMPRESSION: Mild bilateral hip degeneration, probably age-appropriate. If the patient's pain or other symptoms persist, consider further evaluation with MRI. Per: Danny Mccullough M.D. on 08/2019 Lumbar x-ray: IMPRESSION: Multilevel moderate lumbar spondylosis and facet arthropathy. Levoscoliosis. Per: Danny Mccullough M.D. on 08/2019 Future Testing and Treatments Planned Possible further evaluation with MRI, per radiologist report PT-OP-C Subjective Start: 08/21/19 15:30 Freq: Status: Active Protocol: Document 11/14/19 07:33 SP (Rec: 11/14/19 08:19 SP [id number]) OP-PT Subjective Patient Comments Patient Comments Pt states a noticing discomfort 3/10 LB, L knee and L hip pre PT this am, waiting for more Celebrex mail order, Dr increased dose and didn't have enough for today. PT-OP-F Manual Assessment Start: 08/21/19 15:30 Freq: Status: Active Protocol: Document 11/12/19 09:55 DCW (Rec: 11/12/19 10:23 DCW [id number]) Manual Assessments Soft Tissue Assessment Soft Tissue Mobility Assessment Tenderness to palpation 1/4 - Complaint of Pain: L QL, right hip adductors Tenderness to palpation 2/4 - Pain with wincing: Bilateral piriformis, bilateral psoas Moderate-sever tone along bilateral posterior, lateral, and anterior hips, L>R Joint Mobility Assessment Joint Mobility Assessment Hypomobility throughout lumbar spine. PT-OP-G Mobility & Gait Start: 11/12/19 17:28 Freq: Status: Active Protocol: Document 11/12/19 09:55 DCW (Rec: 11/12/19 17:32 DCW [id number]) OP Gait Assessment Gait Deviations General Gait Pattern Flexed Trunk,Lateral Trunk Lean Comments Gait Comments During gait, pt demonstrates increased lumbar rotation and a mild left lateral flexion. PT-OP-K Range of Motion Start: 08/21/19 15:30 Freq: Status: Active Protocol: Document 11/12/19 09:55 DCW (Rec: 11/12/19 10:23 DCW [id number]) Lumbar Spine Range of Motion Lumbar Spine Active Degrees Testing Position Standing Flexion 60 Extension 5 ROM Limitations Soft Tissue Tightness,Muscle Tone,Pain Comments Nearly entire extension ROM is from her thoracic spine, minimal motion in lumbar PT-OP-L Special Tests Start: 08/21/19 15:30 Freq: Status: Active Protocol: Document 11/12/19 09:55 DCW (Rec: 11/12/19 10:23 DCW [id number]) Special Tests Hip Special Tests Lateral SI Compression Test Results Negative Piriformis Test Results Negative RAMONA Test Results Positive ipsilateral pain left Other Special Tests Special Tests Pt exhibits significant accessory muscle breathing PT-OP-M Strength Start: 08/21/19 15:30 Freq: Status: Active Protocol: Document 11/12/19 09:55 DCW (Rec: 11/12/19 10:23 DCW [id number]) Knee Strength Knee Manual Muscle Testing Bilateral Comments All LE MMT 5/5 bilaterally except: Left knee flexion 4/5 PT-OP-Q Treatments Start: 08/21/19 15:30 Freq: Status: Active Protocol: Document 11/14/19 07:33 SP (Rec: 11/14/19 08:19 SP [id number]) Cardio Equipment Elliptical Duration (Minutes) 8 Resistance 5 Other good posture, and mainly Le, contact UE Therapeutic Exercises Supine Exercises diaphramatic breathing with activity Reps/Minutes with activity LS Rotation Ball Supine Exercise Name LE on ball hips/knees 90* Side bilateral Equipment Used Red small SB Reps/Minutes 2x10 Prone Exercises quadruped LE ext Comments cued PPT, neutral LS slow only LE for stability. Sitting Exercises PF stretch Sitting Exercise Name Piriformis stretch: Figure-4, [id number] shoulder Side bilateral Reps/Minutes 30 x2 Standing Exercises Core Stabalization with Marching Standing Exercise Name weak R hip abd Equipment Used mirror used Comments cued R lateral lean during R SLS with ribcage elevation to neutral PT-OP-T Assessment and Plan Start: 08/21/19 15:30 Freq: Status: Active Protocol: Document 11/14/19 07:33 SP (Rec: 11/14/19 08:19 SP [id number]) Physical Therapy Assessment Goals Three Impairment Pt unable to go out dancing with her Senior Care Goal (LTG) Pt to tolerate dancing for 45 minutes without increasing her pain LTG Duration 01/11/20 - Improving Two Impairment Pt unable to sit in her car longer than 30 minutes without moderate pain Hoof And Shoe Inspector Goal (LTG) Pt to tolerate sitting in her car for 60 minutes with pain < 4/10 LTG Duration 01/11/20 - Improving One Impairment Pt does not have an appropriate HEP Short Term Goal (STG) Pt to be independent and compliant with an appropriate HEP STG Duration 12/11/19 Assessment Summary Assessment Pt got little nauseous post elliptical, stated didn't get to eat breakfast after taking meds (concerta, welbutrin, buspar) so provided crackers and selected supine core ex for safety with food absorption with positive results. Focused on LS and postural alignment during core march to improve R glut facilitation and postural corrections see core march cues. Physical Therapy Plan Frequency and Duration Frequency of Treatment 2x/Week Duration of Treatment 12 weeks Plan of Care Start Date 11/12/19 Plan of Care End Date 02/04/20 Therapeutic Interventions Therapeutic Interventions Aquatic Therapy,Home Exercise Program,Joint Mobilizations, Manual Therapy,Patient/ Caregiver Education,Self-Care/ Home Management,Soft Tissue Mobilization,Therapeutic Activities,Therapeutic Exercises Modalities Cold Pack/Ice Massage,Electric Stimulation,Hot Packs, Traction- Mechanical, Ultrasound Next Visit Focus/Plan Next Note Type Treatment Note Next Visit Plan Assess response to last tx, supine and standing core march for alignment awareness with LS mobility and stability. Continue per PT POC: core stabalization, breathing techniques, and gait training.
--- NOTE | 2019-11-19 09:46 | PT.OTN ---
Current Diagnoses Osteoarthritis of hip, unspecified (11/19/19) Pain in right hip (11/19/19) Pain in left hip (11/19/19) Intervertebral disc disorders with myelopathy, lumbar region (11/19/19) Lumbago with sciatica, unspecified side (11/19/19) Physical Therapy Treatment Note PT-OP-A Visit Information Start: 08/21/19 15:30 Freq: Status: Active Protocol: Document 11/19/19 09:08 SP (Rec: 11/19/19 09:55 SP [id number]) Out-Patient Physical Therapy Visit Information Visit Information Visit Type Treatment Note Visit Note Pt 8 min late Visit Start Time 09:08 Visit Stop Time 09:46 Total Visit Minutes 38 Visit Number 22 Number of LEAD SOFTWARE TESTER Visits 2 PT-OP-B Current Condition Start: 08/21/19 15:30 Freq: Status: Active Protocol: Document 08/21/19 15:30 DCW (Rec: 08/21/19 17:32 DCW [id number]) Current Condition History of Current Condition Onset Date Multi-year history Current Complaints low back and bilateral hip pain History of Current Condition Pt is a 58 year old female with a long history of low back and hip pain. Pt reports she has twice had a partial dislocation of her right hip, happening once in the 90s and once in the last decade. 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 Pt notes that this caused so much degeneration in my knees that when I was in my 30s, I couldn't go up and down stairs. Pt reports that since beginning Glucosamine and chondroitin, this has faded, and she is more mobile. She has recently been suffering an increase in bilateral posterior hip pain, especially with extended sitting, or trying to stand up after extended sitting. Pt also reports burning in the back of her hips, L>R. Pt reports that her PCP recently increased her Celebrex, which helped some, but just this past weekend, took a ferry to [place], and after sitting/ lying down for the trip, could barely walk off the ferry she was so stiff and sore. She is currently feeling improved, but everything just feels so tight. Prior Treatments and Tests Hip x-ray: IMPRESSION: Mild bilateral hip degeneration, probably age-appropriate. If the patient's pain or other symptoms persist, consider further evaluation with MRI. Per: Danny Mccullough M.D. on 08/2019 Lumbar x-ray: IMPRESSION: Multilevel moderate lumbar spondylosis and facet arthropathy. Levoscoliosis. Per: Danny Mccullough M.D. on 08/2019 Future Testing and Treatments Planned Possible further evaluation with MRI, per radiologist report PT-OP-C Subjective Start: 08/21/19 15:30 Freq: Status: Active Protocol: Document 11/19/19 09:08 SP (Rec: 11/19/19 09:55 SP [id number]) OP-PT Subjective Patient Comments Patient Comments Pt reported feeling rushed and stiffness LB and R hip pre PT . PT-OP-F Manual Assessment Start: 08/21/19 15:30 Freq: Status: Active Protocol: Document 11/12/19 09:55 DCW (Rec: 11/12/19 10:23 DCW [id number]) Manual Assessments Soft Tissue Assessment Soft Tissue Mobility Assessment Tenderness to palpation 1/4 - Complaint of Pain: L QL, right hip adductors Tenderness to palpation 2/4 - Pain with wincing: Bilateral piriformis, bilateral psoas Moderate-sever tone along bilateral posterior, lateral, and anterior hips, L>R Joint Mobility Assessment Joint Mobility Assessment Hypomobility throughout lumbar spine. PT-OP-G Mobility & Gait Start: 11/12/19 17:28 Freq: Status: Active Protocol: Document 11/12/19 09:55 DCW (Rec: 11/12/19 17:32 DCW [id number]) OP Gait Assessment Gait Deviations General Gait Pattern Flexed Trunk,Lateral Trunk Lean Comments Gait Comments During gait, pt demonstrates increased lumbar rotation and a mild left lateral flexion. PT-OP-K Range of Motion Start: 08/21/19 15:30 Freq: Status: Active Protocol: Document 11/12/19 09:55 DCW (Rec: 11/12/19 10:23 DCW [id number]) Lumbar Spine Range of Motion Lumbar Spine Active Degrees Testing Position Standing Flexion 60 Extension 5 ROM Limitations Soft Tissue Tightness,Muscle Tone,Pain Comments Nearly entire extension ROM is from her thoracic spine, minimal motion in lumbar PT-OP-L Special Tests Start: 08/21/19 15:30 Freq: Status: Active Protocol: Document 11/12/19 09:55 DCW (Rec: 11/12/19 10:23 DCW [id number]) Special Tests Hip Special Tests Lateral SI Compression Test Results Negative Piriformis Test Results Negative RAMONA Test Results Positive ipsilateral pain left Other Special Tests Special Tests Pt exhibits significant accessory muscle breathing PT-OP-M Strength Start: 08/21/19 15:30 Freq: Status: Active Protocol: Document 11/12/19 09:55 DCW (Rec: 11/12/19 10:23 DCW [id number]) Knee Strength Knee Manual Muscle Testing Bilateral Comments All LE MMT 5/5 bilaterally except: Left knee flexion 4/5 PT-OP-Q Treatments Start: 08/21/19 15:30 Freq: Status: Active Protocol: Document 11/19/19 09:08 SP (Rec: 11/19/19 09:55 SP [id number]) Cardio Equipment Elliptical Duration (Minutes) 7 Resistance 5 Other good posture, and mainly Le, contact UE Gym Equipment Shuttle Balance Red Details wt shift f/b NBOS, WBOS side to side, EC, balloon hitting Reps/Duration 5 min Therapeutic Exercises Supine Exercises HS, adductor, ITb stretch Equipment Used strap Reps/Minutes 30 each position Comments cued PPT awareness Sitting Exercises Diaphragmatic Breathing Sitting Exercise Name throughout ther ex Comments performed PF stretch Sitting Exercise Name Piriformis stretch: Figure-4, [id number] shoulder Side bilateral Reps/Minutes 30 x2 Standing Exercises eccentric step down Side bilateral Equipment Used rail contact Reps/Minutes x10 Comments cued spinal alignment and PPT (noted L ribcage R rotation and L hip depres) Core Stabalization with Marching Standing Exercise Name weak R hip abd Resistance Tb YTB Equipment Used mirror used Reps/Minutes F/ side step AROM 20 ft 1 lap YTB 2 laps Comments cued R lateral lean during R SLS with ribcage elevation to neutral PT-OP-T Assessment and Plan Start: 08/21/19 15:30 Freq: Status: Active Protocol: Document 11/19/19 09:08 SP (Rec: 11/19/19 09:55 SP [id number]) Physical Therapy Assessment Goals Three Impairment Pt unable to go out dancing with her Mcc Goal (LTG) Pt to tolerate dancing for 45 minutes without increasing her pain LTG Duration 01/11/20 - Improving Two Impairment Pt unable to sit in her car longer than 30 minutes without moderate pain Mcc Goal (LTG) Pt to tolerate sitting in her car for 60 minutes with pain < 4/10 LTG Duration 01/11/20 - Improving One Impairment Pt does not have an appropriate HEP Short Term Goal (STG) Pt to be independent and compliant with an appropriate HEP STG Duration 12/11/19 Assessment Summary Assessment Pt demonstrated improvement in spinal alignment during elliptical. Tx focused on glut strengthening, spinal alignment with activation with core stepping and shuttle balance progressed to balloon hitting, positive feedback results. Ended with L stretching to decrease R hip and LB flexibiliity with good response. Physical Therapy Plan Frequency and Duration Frequency of Treatment 2x/Week Duration of Treatment 12 weeks Plan of Care Start Date 11/12/19 Plan of Care End Date 02/04/20 Therapeutic Interventions Therapeutic Interventions Aquatic Therapy,Home Exercise Program,Joint Mobilizations, Manual Therapy,Patient/ Caregiver Education,Self-Care/ Home Management,Soft Tissue Mobilization,Therapeutic Activities,Therapeutic Exercises Modalities Cold Pack/Ice Massage,Electric Stimulation,Hot Packs, Traction- Mechanical, Ultrasound Next Visit Focus/Plan Next Note Type Treatment Note Next Visit Plan Assess response to last tx, supine and standing core march for alignment awareness with LS mobility and stability. Continue per PT POC: core stabalization, breathing techniques, and gait training.
--- NOTE | 2019-11-21 10:22 | PT.OTN ---
Current Diagnoses Osteoarthritis of hip, unspecified (11/21/19) Pain in right hip (11/21/19) Pain in left hip (11/21/19) Intervertebral disc disorders with myelopathy, lumbar region (11/21/19) Lumbago with sciatica, unspecified side (11/21/19) Physical Therapy Treatment Note PT-OP-A Visit Information Start: 08/21/19 15:30 Freq: Status: Active Protocol: Document 11/21/19 09:04 DCW (Rec: 11/21/19 10:09 DCW [id number]) Out-Patient Physical Therapy Visit Information Visit Information Visit Type Treatment Note Visit Start Time 09:04 Visit Stop Time 09:45 Total Visit Minutes 41 Visit Number 23 Number of DECK AND HULL ASSEMBLER Visits 0 Evaluation Information Evaluation Date 08/21/19 PT-OP-B Current Condition Start: 08/21/19 15:30 Freq: Status: Active Protocol: Document 08/21/19 15:30 DCW (Rec: 08/21/19 17:32 DCW [id number]) Current Condition History of Current Condition Onset Date Multi-year history Current Complaints low back and bilateral hip pain History of Current Condition Pt is a 58 year old female with a long history of low back and hip pain. Pt reports she has twice had a partial dislocation of her right hip, happening once in the 90s and once in the last decade. 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 Pt notes that this caused so much degeneration in my knees that when I was in my 30s, I couldn't go up and down stairs. Pt reports that since beginning Glucosamine and chondroitin, this has faded, and she is more mobile. She has recently been suffering an increase in bilateral posterior hip pain, especially with extended sitting, or trying to stand up after extended sitting. Pt also reports burning in the back of her hips, L>R. Pt reports that her PCP recently increased her Celebrex, which helped some, but just this past weekend, took a ferry to [place], and after sitting/ lying down for the trip, could barely walk off the ferry she was so stiff and sore. She is currently feeling improved, but everything just feels so tight. Prior Treatments and Tests Hip x-ray: IMPRESSION: Mild bilateral hip degeneration, probably age-appropriate. If the patient's pain or other symptoms persist, consider further evaluation with MRI. Per: Danny Mccullough M.D. on 08/2019 Lumbar x-ray: IMPRESSION: Multilevel moderate lumbar spondylosis and facet arthropathy. Levoscoliosis. Per: Danny Mccullough M.D. on 08/2019 Future Testing and Treatments Planned Possible further evaluation with MRI, per radiologist report PT-OP-C Subjective Start: 08/21/19 15:30 Freq: Status: Active Protocol: Document 11/21/19 09:04 DCW (Rec: 11/21/19 10:09 DCW [id number]) OP-PT Subjective Patient Comments Patient Comments I feel good today, but my hip seems like it is stiffer. Pt reports she drove to [place] and back yesterday, had to stop and move around ~ assisted through her trip up, but didn't need to stop at all on her way back. PT-OP-F Manual Assessment Start: 08/21/19 15:30 Freq: Status: Active Protocol: Document 11/12/19 09:55 DCW (Rec: 11/12/19 10:23 DCW [id number]) Manual Assessments Soft Tissue Assessment Soft Tissue Mobility Assessment Tenderness to palpation 1/4 - Complaint of Pain: L QL, right hip adductors Tenderness to palpation 2/4 - Pain with wincing: Bilateral piriformis, bilateral psoas Moderate-sever tone along bilateral posterior, lateral, and anterior hips, L>R Joint Mobility Assessment Joint Mobility Assessment Hypomobility throughout lumbar spine. PT-OP-G Mobility & Gait Start: 11/12/19 17:28 Freq: Status: Active Protocol: Document 11/12/19 09:55 DCW (Rec: 11/12/19 17:32 DCW [id number]) OP Gait Assessment Gait Deviations General Gait Pattern Flexed Trunk,Lateral Trunk Lean Comments Gait Comments During gait, pt demonstrates increased lumbar rotation and a mild left lateral flexion. PT-OP-K Range of Motion Start: 08/21/19 15:30 Freq: Status: Active Protocol: Document 11/12/19 09:55 DCW (Rec: 11/12/19 10:23 DCW [id number]) Lumbar Spine Range of Motion Lumbar Spine Active Degrees Testing Position Standing Flexion 60 Extension 5 ROM Limitations Soft Tissue Tightness,Muscle Tone,Pain Comments Nearly entire extension ROM is from her thoracic spine, minimal motion in lumbar PT-OP-L Special Tests Start: 08/21/19 15:30 Freq: Status: Active Protocol: Document 11/12/19 09:55 DCW (Rec: 11/12/19 10:23 DCW [id number]) Special Tests Hip Special Tests Lateral SI Compression Test Results Negative Piriformis Test Results Negative RAMONA Test Results Positive ipsilateral pain left Other Special Tests Special Tests Pt exhibits significant accessory muscle breathing PT-OP-M Strength Start: 08/21/19 15:30 Freq: Status: Active Protocol: Document 11/12/19 09:55 DCW (Rec: 11/12/19 10:23 DCW [id number]) Knee Strength Knee Manual Muscle Testing Bilateral Comments All LE MMT 5/5 bilaterally except: Left knee flexion 4/5 PT-OP-Q Treatments Start: 08/21/19 15:30 Freq: Status: Active Protocol: Document 11/21/19 09:04 DCW (Rec: 11/21/19 10:09 DCW [id number]) Cardio Equipment Elliptical Duration (Minutes) 6 Resistance 5 Other good posture, and mainly Le, contact UE Gym Equipment Shuttle Balance Red Details Lateral weight shift/balloon volley, WBOS wt shift f/b Therapeutic Ball Low Trunk Rotations Exercise Details LTR - hip/knee 90/90 on ball Ball Size/Color Blue - 45 cm Body Position Hooklying Resisted Rotation Exercise Details Resisted trunk rotation Ball Size/Color Green - 65 cm Lv 2 T-band Body Position Sitting Therapeutic Exercises Standing Exercises standing hip abd with band Standing Exercise Name 4-way hip flexion Side bilateral Resistance Lv 2 Equipment Used T-band Reps/Minutes x15 each Manual Therapy Treatment Soft Tissue Mobilization Psoas Body Location R Psoas Mobilization Type Sustained Pressure Intensity/Depth Deep Body Position Supine PT-OP-T Assessment and Plan Start: 08/21/19 15:30 Freq: Status: Active Protocol: Document 11/21/19 09:04 DCW (Rec: 11/21/19 10:09 DCW [id number]) Physical Therapy Assessment Impairments Impairments Activity Tolerance,Functional Activities,Pain,ROM,Strength, Tone Goals Three Impairment Pt unable to go out dancing with her [place] Goal (LTG) Pt to tolerate dancing for 45 minutes without increasing her pain LTG Duration 01/11/20 - Improving Two Impairment Pt unable to sit in her car longer than 30 minutes without moderate pain [place] Goal (LTG) Pt to tolerate sitting in her car for 60 minutes with pain < 4/10 LTG Duration 01/11/20 - Improving One Impairment Pt does not have an appropriate HEP Short Term Goal (STG) Pt to be independent and compliant with an appropriate HEP STG Duration 12/11/19 Assessment Summary Assessment Pt showing significant improvement with diaphragmatic breathing, even able to continue while distracted without any verbal cues. Pt improving hip mobility and has decreased tone through low back. Physical Therapy Plan Frequency and Duration Frequency of Treatment 2x/Week Duration of Treatment 12 weeks Plan of Care Start Date 11/12/19 Plan of Care End Date 02/04/20 Therapeutic Interventions Therapeutic Interventions Aquatic Therapy,Home Exercise Program,Joint Mobilizations, Manual Therapy,Patient/ Caregiver Education,Self-Care/ Home Management,Soft Tissue Mobilization,Therapeutic Activities,Therapeutic Exercises Modalities Cold Pack/Ice Massage,Electric Stimulation,Hot Packs, Traction- Mechanical, Ultrasound Next Visit Focus/Plan Next Note Type Treatment Note Next Visit Plan Assess response to last tx, supine and standing core march for alignment awareness with LS mobility and stability. Continue per PT POC: core stabalization, breathing techniques, and gait training.
--- NOTE | 2019-11-24 16:50 | PT.OTN ---
Current Diagnoses Osteoarthritis of hip, unspecified (11/24/19) Pain in right hip (11/24/19) Pain in left hip (11/24/19) Intervertebral disc disorders with myelopathy, lumbar region (11/24/19) Lumbago with sciatica, unspecified side (11/24/19) Physical Therapy Treatment Note PT-OP-A Visit Information Start: 08/21/19 15:30 Freq: Status: Active Protocol: Document 11/24/19 13:45 DCW (Rec: 11/24/19 16:50 DCW [id number]) Out-Patient Physical Therapy Visit Information Visit Information Visit Type Treatment Note Visit Start Time 13:45 Visit Stop Time 14:30 Total Visit Minutes 45 Visit Number 24 Number of PHARM SPEC Visits 0 Evaluation Information Evaluation Date 08/21/19 PT-OP-B Current Condition Start: 08/21/19 15:30 Freq: Status: Active Protocol: Document 08/21/19 15:30 DCW (Rec: 08/21/19 17:32 DCW [id number]) Current Condition History of Current Condition Onset Date Multi-year history Current Complaints low back and bilateral hip pain History of Current Condition Pt is a 58 year old female with a long history of low back and hip pain. Pt reports she has twice had a partial dislocation of her right hip, happening once in the 90s and once in the last decade. 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 Pt notes that this caused so much degeneration in my knees that when I was in my 30s, I couldn't go up and down stairs. Pt reports that since beginning Glucosamine and chondroitin, this has faded, and she is more mobile. She has recently been suffering an increase in bilateral posterior hip pain, especially with extended sitting, or trying to stand up after extended sitting. Pt also reports burning in the back of her hips, L>R. Pt reports that her PCP recently increased her Celebrex, which helped some, but just this past weekend, took a ferry to [place], and after sitting/ lying down for the trip, could barely walk off the ferry she was so stiff and sore. She is currently feeling improved, but everything just feels so tight. Prior Treatments and Tests Hip x-ray: IMPRESSION: Mild bilateral hip degeneration, probably age-appropriate. If the patient's pain or other symptoms persist, consider further evaluation with MRI. Per: Danny Mccullough M.D. on 08/2019 Lumbar x-ray: IMPRESSION: Multilevel moderate lumbar spondylosis and facet arthropathy. Levoscoliosis. Per: Danny Mccullough M.D. on 08/2019 Future Testing and Treatments Planned Possible further evaluation with MRI, per radiologist report PT-OP-C Subjective Start: 08/21/19 15:30 Freq: Status: Active Protocol: Document 11/24/19 13:45 DCW (Rec: 11/24/19 16:50 DCW [id number]) OP-PT Subjective Patient Comments Patient Comments Pt reports she spent ~[id number] walking along the [employer] trail today, and is feeling pretty good. PT-OP-F Manual Assessment Start: 08/21/19 15:30 Freq: Status: Active Protocol: Document 11/12/19 09:55 DCW (Rec: 11/12/19 10:23 DCW [id number]) Manual Assessments Soft Tissue Assessment Soft Tissue Mobility Assessment Tenderness to palpation 1/4 - Complaint of Pain: L QL, right hip adductors Tenderness to palpation 2/4 - Pain with wincing: Bilateral piriformis, bilateral psoas Moderate-sever tone along bilateral posterior, lateral, and anterior hips, L>R Joint Mobility Assessment Joint Mobility Assessment Hypomobility throughout lumbar spine. PT-OP-G Mobility & Gait Start: 11/12/19 17:28 Freq: Status: Active Protocol: Document 11/12/19 09:55 DCW (Rec: 11/12/19 17:32 DCW [id number]) OP Gait Assessment Gait Deviations General Gait Pattern Flexed Trunk,Lateral Trunk Lean Comments Gait Comments During gait, pt demonstrates increased lumbar rotation and a mild left lateral flexion. PT-OP-K Range of Motion Start: 08/21/19 15:30 Freq: Status: Active Protocol: Document 11/12/19 09:55 DCW (Rec: 11/12/19 10:23 DCW [id number]) Lumbar Spine Range of Motion Lumbar Spine Active Degrees Testing Position Standing Flexion 60 Extension 5 ROM Limitations Soft Tissue Tightness,Muscle Tone,Pain Comments Nearly entire extension ROM is from her thoracic spine, minimal motion in lumbar PT-OP-L Special Tests Start: 08/21/19 15:30 Freq: Status: Active Protocol: Document 11/12/19 09:55 DCW (Rec: 11/12/19 10:23 DCW [id number]) Special Tests Hip Special Tests Lateral SI Compression Test Results Negative Piriformis Test Results Negative RAMONA Test Results Positive ipsilateral pain left Other Special Tests Special Tests Pt exhibits significant accessory muscle breathing PT-OP-M Strength Start: 08/21/19 15:30 Freq: Status: Active Protocol: Document 11/12/19 09:55 DCW (Rec: 11/12/19 10:23 DCW [id number]) Knee Strength Knee Manual Muscle Testing Bilateral Comments All LE MMT 5/5 bilaterally except: Left knee flexion 4/5 PT-OP-Q Treatments Start: 08/21/19 15:30 Freq: Status: Active Protocol: Document 11/24/19 13:45 DCW (Rec: 11/24/19 16:50 DCW [id number]) Cardio Equipment Elliptical Duration (Minutes) 6 Resistance 5 Other good posture, and mainly Le, contact UE Gym Equipment Shuttle Balance Red Details Lateral weight shift/balloon volley, WBOS wt shift f/b Therapeutic Exercises Supine Exercises HS, adductor, ITb stretch Equipment Used strap Reps/Minutes 30 each position Comments cued PPT awareness Bryce stretch Side bilateral Reps/Minutes 30 x3 1 Supine Exercise Name Piriformis stretch: Figure-4 Side right Reps/Minutes 60 Gait Training Gait Activity 1 Description /c and /s shoes Comments Focus on foot positioning, heel movement, correcting pronation to improve hip alignment PT-OP-T Assessment and Plan Start: 08/21/19 15:30 Freq: Status: Active Protocol: Document 11/24/19 13:45 DCW (Rec: 11/24/19 16:50 DCW [id number]) Physical Therapy Assessment Impairments Impairments Activity Tolerance,Functional Activities,Pain,ROM,Strength, Tone Goals Three Impairment 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 Pt displays R ankle wobbling/instability during gait with shoes, which is not present in stockinged feet. Pt's shoes today were very flexible running shoes, requested pt bring in extra shoes next time to see if there is a difference in her gait. Physical Therapy Plan Frequency and Duration Frequency of Treatment 2x/Week Duration of Treatment 12 weeks Plan of Care Start Date 11/12/19 Plan of Care End Date 02/04/20 Therapeutic Interventions Therapeutic Interventions Aquatic Therapy,Home Exercise Program,Joint Mobilizations, Manual Therapy,Patient/ Caregiver Education,Self-Care/ Home Management,Soft Tissue Mobilization,Therapeutic Activities,Therapeutic Exercises Modalities Cold Pack/Ice Massage,Electric Stimulation,Hot Packs, Traction- Mechanical, Ultrasound Next Visit Focus/Plan Next Note Type Treatment Note Next Visit Plan Assess response to last tx, supine and standing core march for alignment awareness with LS mobility and stability. Continue per PT POC: core stabalization, breathing techniques, and gait training.
--- NOTE | 2020-01-13 12:56 | PT-OP ANOTE ---
Left message on patient's voicemail about return to therapy as the clinic slowly opens back up following CDC recommendations. Pt will call back if interested about scheduling further appointments.
--- NOTE | 2020-02-18 16:34 | PT.OTN ---
Current Diagnoses Osteoarthritis of hip, unspecified (02/18/20) Pain in right hip (02/18/20) Pain in left hip (02/18/20) Intervertebral disc disorders with myelopathy, lumbar region (02/18/20) Lumbago with sciatica, unspecified side (02/18/20) Physical Therapy Treatment Note PT-OP-A Visit Information Start: 08/21/19 15:30 Freq: Status: Active Protocol: Document 02/18/20 15:20 DCW (Rec: 02/18/20 16:34 DCW [id number]) Out-Patient Physical Therapy Visit Information Visit Information Visit Type Progress Note Visit Start Time 15:20 Visit Stop Time 16:00 Total Visit Minutes 40 Visit Number 25 Number of ONLINE RETAILER Visits 0 Evaluation Information Evaluation Date 08/21/19 PT-OP-B Current Condition Start: 08/21/19 15:30 Freq: Status: Active Protocol: Document 08/21/19 15:30 DCW (Rec: 08/21/19 17:32 DCW [id number]) Current Condition History of Current Condition Onset Date Multi-year history Current Complaints low back and bilateral hip pain History of Current Condition Pt is a 58 year old female with a long history of low back and hip pain. Pt reports she has twice had a partial dislocation of her right hip, happening once in the 90s and once in the last decade. 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 Pt notes that this caused so much degeneration in my knees that when I was in my 30s, I couldn't go up and down stairs. Pt reports that since beginning Glucosamine and chondroitin, this has faded, and she is more mobile. She has recently been suffering an increase in bilateral posterior hip pain, especially with extended sitting, or trying to stand up after extended sitting. Pt also reports burning in the back of her hips, L>R. Pt reports that her PCP recently increased her Celebrex, which helped some, but just this past weekend, took a ferry to [place], and after sitting/ lying down for the trip, could barely walk off the ferry she was so stiff and sore. She is currently feeling improved, but everything just feels so tight. Prior Treatments and Tests Hip x-ray: IMPRESSION: Mild bilateral hip degeneration, probably age-appropriate. If the patient's pain or other symptoms persist, consider further evaluation with MRI. Per: Danny Mccullough M.D. on 08/2019 Lumbar x-ray: IMPRESSION: Multilevel moderate lumbar spondylosis and facet arthropathy. Levoscoliosis. Per: Danny Mccullough M.D. on 08/2019 Future Testing and Treatments Planned Possible further evaluation with MRI, per radiologist report PT-OP-C Subjective Start: 08/21/19 15:30 Freq: Status: Active Protocol: Document 02/18/20 15:20 DCW (Rec: 02/18/20 16:34 DCW [id number]) OP-PT Subjective Patient Comments Patient Comments Pt feels as though she has slid backward due to her long layoff from therapy due to shutdown due to Covid-19 Pandemic. PT-OP-F Manual Assessment Start: 08/21/19 15:30 Freq: Status: Active Protocol: Document 02/18/20 15:20 DCW (Rec: 02/18/20 16:02 DCW [id number]) Manual Assessments Soft Tissue Assessment Soft Tissue Mobility Assessment Tenderness to palpation 1/4 - Complaint of Pain: right hip adductors Tenderness to palpation 2/4 - Pain with wincing: L QL, Bilateral piriformis, bilateral psoas Moderate-severe tone along bilateral posterior, lateral, and anterior hips, L>R Joint Mobility Assessment Joint Mobility Assessment Hypomobility throughout lumbar spine. Hypermobility of left tibiotalar joint PT-OP-G Mobility & Gait Start: 11/12/19 17:28 Freq: Status: Active Protocol: Document 02/18/20 15:20 DCW (Rec: 02/18/20 16:02 DCW [id number]) OP Gait Assessment Gait Deviations General Gait Pattern Flexed Trunk,Lateral Trunk Lean Comments Gait Comments During gait, pt demonstrates increased lumbar rotation and a mild left lateral flexion. PT-OP-K Range of Motion Start: 08/21/19 15:30 Freq: Status: Active Protocol: Document 02/18/20 15:20 DCW (Rec: 02/18/20 16:02 DCW [id number]) Lumbar Spine Range of Motion Lumbar Spine Active Degrees Testing Position Standing Flexion 60 Extension 8 ROM Limitations Soft Tissue Tightness,Muscle Tone,Pain Comments Nearly entire extension ROM is from her thoracic spine, minimal motion in lumbar PT-OP-L Special Tests Start: 08/21/19 15:30 Freq: Status: Active Protocol: Document 02/18/20 15:20 DCW (Rec: 02/18/20 16:02 DCW [id number]) Special Tests Hip Special Tests RAMONA Test Results Positive ipsilateral left Other Special Tests Special Tests Pt exhibits significant accessory muscle breathing when distracted PT-OP-M Strength Start: 08/21/19 15:30 Freq: Status: Active Protocol: Document 02/18/20 15:20 DCW (Rec: 02/18/20 16:02 DCW [id number]) Hip Strength Hip Manual Muscle Testing Bilateral Abduction 4- Good- Adduction 4- Good- Knee Strength Knee Manual Muscle Testing Bilateral Comments All LE MMT 5/5 bilaterally except: Left knee flexion 4/5 PT-OP-Q Treatments Start: 08/21/19 15:30 Freq: Status: Active Protocol: Document 02/18/20 15:20 DCW (Rec: 02/18/20 16:34 DCW [id number]) Cardio Equipment Elliptical Duration (Minutes) 6 Resistance 5 Manual Therapy Treatment Soft Tissue Mobilization QL Body Location L QL Mobilization Type Sustained Pressure,Trigger Point Release Intensity/Depth Deep Body Position Prone Psoas Body Location R Psoas Mobilization Type Sustained Pressure Intensity/Depth Deep Body Position Supine Other Other Manual Treatments Testing PT-OP-T Assessment and Plan Start: 08/21/19 15:30 Freq: Status: Active Protocol: Document 02/18/20 15:20 DCW (Rec: 02/18/20 16:34 DCW [id number]) Physical Therapy Assessment Impairments Impairments Activity Tolerance,Functional Activities,Pain,ROM,Strength, Tone Goals Three Impairment Pt unable to go out dancing with her Group Home Goal (LTG) Pt to tolerate dancing for 45 minutes without increasing her pain LTG Duration 04/19/20 Two Impairment Pt unable to sit in her car longer than 30 minutes without moderate pain Plumbing Assembler Goal (LTG) Pt to tolerate sitting in her car for 60 minutes with pain < 4/10 LTG Duration 04/19/20 One Impairment Pt does not have an appropriate HEP Short Term Goal (STG) Pt to be independent and compliant with an appropriate HEP STG Duration Met Assessment Summary Assessment Pt overall doing fairly well, similar to how she was at her last reassessment in November. Pt displays L ankle instability during gait, general hip weakness, and hypertonic left QL and bilateral beau. Additionally, pt complains of recent urinary incontinence, which may be caused by her ongoing hip and back nerve problems, and she would benefit from an assessment from a therapist who specializes in women's health. Physical Therapy Plan Frequency and Duration Frequency of Treatment 2x/Week Duration of Treatment 12 weeks Plan of Care Start Date 02/18/20 Plan of Care End Date 05/12/20 Therapeutic Interventions Therapeutic Interventions Aquatic Therapy,Home Exercise Program,Joint Mobilizations, Manual Therapy,Patient/ Caregiver Education,Self-Care/ Home Management,Soft Tissue Mobilization,Therapeutic Activities,Therapeutic Exercises Modalities Cold Pack/Ice Massage,Electric Stimulation,Hot Packs, Traction- Mechanical, Ultrasound Next Visit Focus/Plan Next Note Type Treatment Note Next Visit Plan Assess response to last tx, supine and standing core march for alignment awareness with LS mobility and stability. Continue per PT POC: core stabalization, breathing techniques, and gait training.
--- NOTE | 2020-02-18 16:35 | PT.OPPOC ---
Physical, Occupational & Speech Therapy At Located Within [facility] Current Diagnoses Osteoarthritis of hip, unspecified (02/18/20) Pain in right hip (02/18/20) Pain in left hip (02/18/20) Intervertebral disc disorders with myelopathy, lumbar region (02/18/20) Lumbago with sciatica, unspecified side (02/18/20) Visit Care Team Role Provider Type Jersey Price MD Attending Provider Physician Primary Care Provider Specialty: [facility] Address: [address] [place] [address], [facility] Email: [email or web address] Plan Of Care PT-OP-T Assessment and Plan Start: 08/21/19 15:30 Freq: Status: Active Protocol: Document 02/18/20 15:20 DCW (Rec: 02/18/20 16:34 DCW [id number]) Physical Therapy Assessment Impairments Impairments Activity Tolerance,Functional Activities,Pain,ROM,Strength, Tone Goals Three Impairment Pt unable to go out dancing with her Custodial Goal (LTG) Pt to tolerate dancing for 45 minutes without increasing her pain LTG Duration 04/19/20 Two Impairment Pt unable to sit in her car longer than 30 minutes without moderate pain Stagecraft Teacher Goal (LTG) Pt to tolerate sitting in her car for 60 minutes with pain < 4/10 LTG Duration 04/19/20 One Impairment Pt does not have an appropriate HEP Short Term Goal (STG) Pt to be independent and compliant with an appropriate HEP STG Duration Met Assessment Summary Assessment Pt overall doing fairly well, similar to how she was at her last reassessment in November. Pt displays L ankle instability during gait, general hip weakness, and hypertonic left QL and bilateral beau. Additionally, pt complains of recent urinary incontinence, which may be caused by her ongoing hip and back nerve problems, and she would benefit from an assessment from a therapist who specializes in women's health. Physical Therapy Plan Frequency and Duration Frequency of Treatment 2x/Week Duration of Treatment 12 weeks Plan of Care Start Date 02/18/20 Plan of Care End Date 05/12/20 Therapeutic Interventions Therapeutic Interventions Aquatic Therapy,Home Exercise Program,Joint Mobilizations, Manual Therapy,Patient/ Caregiver Education,Self-Care/ Home Management,Soft Tissue Mobilization,Therapeutic Activities,Therapeutic Exercises Modalities Cold Pack/Ice Massage,Electric Stimulation,Hot Packs, Traction- Mechanical, Ultrasound Next Visit Focus/Plan Next Note Type Treatment Note Next Visit Plan Assess response to last tx, supine and standing core march for alignment awareness with LS mobility and stability. Continue per PT POC: core stabalization, breathing techniques, and gait training. Plan of Care Dates Plan of Care Start Date 02/18/20 Plan of Care End Date 05/12/20 Electronically Signed by: Rudi Doyle, PT 02/18/20 [id number] Please Sign and Return: I have reviewed this Plan of Care and certify that the skilled therapy services above are required to meet the patient?s needs. Physician Signature Date Printed Name and Credentials Clinical Instructor Signature Printed Name and Credentials
--- NOTE | 2020-02-23 18:05 | PT.OTN ---
Current Diagnoses Osteoarthritis of hip, unspecified (02/23/20) Pain in right hip (02/23/20) Pain in left hip (02/23/20) Intervertebral disc disorders with myelopathy, lumbar region (02/23/20) Lumbago with sciatica, unspecified side (02/23/20) Physical Therapy Treatment Note PT-OP-A Visit Information Start: 08/21/19 15:30 Freq: Status: Active Protocol: Document 02/23/20 15:12 AMH (Rec: 02/23/20 15:14 AMH [id number]) Out-Patient Physical Therapy Visit Information Visit Information Visit Type Treatment Note Visit Start Time 15:15 Visit Stop Time 16:00 Total Visit Minutes 45 Visit Number 26 Number of SPORTS ATTORNEY Visits 0 Evaluation Information Evaluation Date 08/21/19 PT-OP-B Current Condition Start: 08/21/19 15:30 Freq: Status: Active Protocol: Document 08/21/19 15:30 DCW (Rec: 08/21/19 17:32 DCW [id number]) Current Condition History of Current Condition Onset Date Multi-year history Current Complaints low back and bilateral hip pain History of Current Condition Pt is a 58 year old female with a long history of low back and hip pain. Pt reports she has twice had a partial dislocation of her right hip, happening once in the 90s and once in the last decade. 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 Pt notes that this caused so much degeneration in my knees that when I was in my 30s, I couldn't go up and down stairs. Pt reports that since beginning Glucosamine and chondroitin, this has faded, and she is more mobile. She has recently been suffering an increase in bilateral posterior hip pain, especially with extended sitting, or trying to stand up after extended sitting. Pt also reports burning in the back of her hips, L>R. Pt reports that her PCP recently increased her Celebrex, which helped some, but just this past weekend, took a ferry to [place], and after sitting/ lying down for the trip, could barely walk off the ferry she was so stiff and sore. She is currently feeling improved, but everything just feels so tight. Prior Treatments and Tests Hip x-ray: IMPRESSION: Mild bilateral hip degeneration, probably age-appropriate. If the patient's pain or other symptoms persist, consider further evaluation with MRI. Per: Danny Mccullough M.D. on 08/2019 Lumbar x-ray: IMPRESSION: Multilevel moderate lumbar spondylosis and facet arthropathy. Levoscoliosis. Per: Danny Mccullough M.D. on 08/2019 Future Testing and Treatments Planned Possible further evaluation with MRI, per radiologist report PT-OP-C Subjective Start: 08/21/19 15:30 Freq: Status: Active Protocol: Document 02/23/20 17:49 AMH (Rec: 02/23/20 18:04 AMH [email or web address]) OP-PT Subjective Patient Comments Patient Comments pt describes urinary leakage that is happening at night when she is getting into and out of bed to void. She notes she does not experience leakage at any other time during the day. Lanny reports that it is only a little dribble but wanted to mention it as she has felt more of the hip pain and numbness and tingling down the right leg due to the shutdown with covid -19 pandemic PT-OP-F Manual Assessment Start: 08/21/19 15:30 Freq: Status: Active Protocol: Document 02/18/20 15:20 DCW (Rec: 02/18/20 16:02 DCW [id number]) Manual Assessments Soft Tissue Assessment Soft Tissue Mobility Assessment Tenderness to palpation 1/4 - Complaint of Pain: right hip adductors Tenderness to palpation 2/4 - Pain with wincing: L QL, Bilateral piriformis, bilateral psoas Moderate-severe tone along bilateral posterior, lateral, and anterior hips, L>R Joint Mobility Assessment Joint Mobility Assessment Hypomobility throughout lumbar spine. Hypermobility of left tibiotalar joint PT-OP-G Mobility & Gait Start: 11/12/19 17:28 Freq: Status: Active Protocol: Document 02/18/20 15:20 DCW (Rec: 02/18/20 16:02 DCW [id number]) OP Gait Assessment Gait Deviations General Gait Pattern Flexed Trunk,Lateral Trunk Lean Comments Gait Comments During gait, pt demonstrates increased lumbar rotation and a mild left lateral flexion. PT-OP-K Range of Motion Start: 08/21/19 15:30 Freq: Status: Active Protocol: Document 02/18/20 15:20 DCW (Rec: 02/18/20 16:02 DCW [id number]) Lumbar Spine Range of Motion Lumbar Spine Active Degrees Testing Position Standing Flexion 60 Extension 8 ROM Limitations Soft Tissue Tightness,Muscle Tone,Pain Comments Nearly entire extension ROM is from her thoracic spine, minimal motion in lumbar PT-OP-L Special Tests Start: 08/21/19 15:30 Freq: Status: Active Protocol: Document 02/18/20 15:20 DCW (Rec: 02/18/20 16:02 DCW [id number]) Special Tests Hip Special Tests RAMONA Test Results Positive ipsilateral left Other Special Tests Special Tests Pt exhibits significant accessory muscle breathing when distracted PT-OP-M Strength Start: 08/21/19 15:30 Freq: Status: Active Protocol: Document 02/18/20 15:20 DCW (Rec: 02/18/20 16:02 DCW [id number]) Hip Strength Hip Manual Muscle Testing Bilateral Abduction 4- Good- Adduction 4- Good- Knee Strength Knee Manual Muscle Testing Bilateral Comments All LE MMT 5/5 bilaterally except: Left knee flexion 4/5 PT-OP-Q Treatments Start: 08/21/19 15:30 Freq: Status: Active Protocol: Document 02/23/20 17:49 AMH (Rec: 02/23/20 18:04 AMH [email or web address]) Therapeutic Exercises Supine Exercises 2 Supine Exercise Name happy baby stretch Reps/Minutes hold 1-2 minutes Pelvic floor long holds Supine Exercise Name Pelvic floor long holds Reps/Minutes hold x 10 seconds Comments focus on the relaxation following a contraction 1 Supine Exercise Name Piriformis stretch: Figure-4 Side right Reps/Minutes 60 Neuro Re-Education Treatment Other Activities 1 Details EMG biobeedback for pelvic floor activation and relaxation Comments education on activation of the pelvic floor and neuro re- education on pelvic floor relaxation following a contraction. Average resting tone is 4.6 uv with average contraction of 15.3 uv and max of 26.9 uv. Self-Care/Home Management Treatment Education Patient Education Home Exercise Program Caregiver Education education on how to fully empty her bladder when voiding . Other Education HEP PT-OP-T Assessment and Plan Start: 08/21/19 15:30 Freq: Status: Active Protocol: Document 02/23/20 17:49 AMH (Rec: 02/23/20 18:04 AMH [email or web address]) Physical Therapy Assessment Assessment Summary Assessment Lanny demonstrates that she is holding tension in her pelvic floor on EMG biofeedback. Spent time with neuro re- education today and relaxation of the pelvic floor on EMG biofeedback. Gave stratagies for voiding to completely void prior to returning to bed. Pt very likely holding tension in her pelvic floor due to pain of the low back and hips Physical Therapy Plan Frequency and Duration Frequency of Treatment 2x/Week Duration of Treatment 12 weeks Plan of Care Start Date 02/18/20 Plan of Care End Date 05/12/20 Therapeutic Interventions Therapeutic Interventions Aquatic Therapy,Home Exercise Program,Joint Mobilizations, Manual Therapy,Patient/ Caregiver Education,Self-Care/ Home Management,Soft Tissue Mobilization,Therapeutic Activities,Therapeutic Exercises Modalities Cold Pack/Ice Massage,Electric Stimulation,Hot Packs, Traction- Mechanical, Ultrasound
--- NOTE | 2020-02-26 13:13 | PT.OTN ---
Current Diagnoses Osteoarthritis of hip, unspecified (02/26/20) Pain in right hip (02/26/20) Pain in left hip (02/26/20) Intervertebral disc disorders with myelopathy, lumbar region (02/26/20) Lumbago with sciatica, unspecified side (02/26/20) Physical Therapy Treatment Note PT-OP-A Visit Information Start: 08/21/19 15:30 Freq: Status: Active Protocol: Document 02/26/20 08:17 HH (Rec: 02/26/20 09:51 HH [id number]) Out-Patient Physical Therapy Visit Information Visit Information Visit Type Treatment Note Visit Start Time 08:17 Visit Stop Time 09:00 Total Visit Minutes 43 Visit Number 27 Number of AUTOMATIC TRIMMING SEWER Visits 0 PT-OP-B Current Condition Start: 08/21/19 15:30 Freq: Status: Active Protocol: Document 08/21/19 15:30 DCW (Rec: 08/21/19 17:32 DCW [id number]) Current Condition History of Current Condition Onset Date Multi-year history Current Complaints low back and bilateral hip pain History of Current Condition Pt is a 58 year old female with a long history of low back and hip pain. Pt reports she has twice had a partial dislocation of her right hip, happening once in the 90s and once in the last decade. 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 Pt notes that this caused so much degeneration in my knees that when I was in my 30s, I couldn't go up and down stairs. Pt reports that since beginning Glucosamine and chondroitin, this has faded, and she is more mobile. She has recently been suffering an increase in bilateral posterior hip pain, especially with extended sitting, or trying to stand up after extended sitting. Pt also reports burning in the back of her hips, L>R. Pt reports that her PCP recently increased her Celebrex, which helped some, but just this past weekend, took a ferry to [place], and after sitting/ lying down for the trip, could barely walk off the ferry she was so stiff and sore. She is currently feeling improved, but everything just feels so tight. Prior Treatments and Tests Hip x-ray: IMPRESSION: Mild bilateral hip degeneration, probably age-appropriate. If the patient's pain or other symptoms persist, consider further evaluation with MRI. Per: Danny Mccullough M.D. on 08/2019 Lumbar x-ray: IMPRESSION: Multilevel moderate lumbar spondylosis and facet arthropathy. Levoscoliosis. Per: Danny Mccullough M.D. on 08/2019 Future Testing and Treatments Planned Possible further evaluation with MRI, per radiologist report PT-OP-C Subjective Start: 08/21/19 15:30 Freq: Status: Active Protocol: Document 02/26/20 08:17 HH (Rec: 02/26/20 09:51 HH [id number]) OP-PT Subjective Patient Comments Patient Comments I started to have this tingling and numness on R leg Since the quarantine and i dont know why PT-OP-F Manual Assessment Start: 08/21/19 15:30 Freq: Status: Active Protocol: Document 02/18/20 15:20 DCW (Rec: 02/18/20 16:02 DCW [id number]) Manual Assessments Soft Tissue Assessment Soft Tissue Mobility Assessment Tenderness to palpation 1/4 - Complaint of Pain: right hip adductors Tenderness to palpation 2/4 - Pain with wincing: L QL, Bilateral piriformis, bilateral psoas Moderate-severe tone along bilateral posterior, lateral, and anterior hips, L>R Joint Mobility Assessment Joint Mobility Assessment Hypomobility throughout lumbar spine. Hypermobility of left tibiotalar joint PT-OP-G Mobility & Gait Start: 11/12/19 17:28 Freq: Status: Active Protocol: Document 02/18/20 15:20 DCW (Rec: 02/18/20 16:02 DCW [id number]) OP Gait Assessment Gait Deviations General Gait Pattern Flexed Trunk,Lateral Trunk Lean Comments Gait Comments During gait, pt demonstrates increased lumbar rotation and a mild left lateral flexion. PT-OP-K Range of Motion Start: 08/21/19 15:30 Freq: Status: Active Protocol: Document 02/18/20 15:20 DCW (Rec: 02/18/20 16:02 DCW [id number]) Lumbar Spine Range of Motion Lumbar Spine Active Degrees Testing Position Standing Flexion 60 Extension 8 ROM Limitations Soft Tissue Tightness,Muscle Tone,Pain Comments Nearly entire extension ROM is from her thoracic spine, minimal motion in lumbar PT-OP-L Special Tests Start: 08/21/19 15:30 Freq: Status: Active Protocol: Document 02/18/20 15:20 DCW (Rec: 02/18/20 16:02 DCW [id number]) Special Tests Hip Special Tests RAMONA Test Results Positive ipsilateral left Other Special Tests Special Tests Pt exhibits significant accessory muscle breathing when distracted PT-OP-M Strength Start: 08/21/19 15:30 Freq: Status: Active Protocol: Document 02/18/20 15:20 DCW (Rec: 02/18/20 16:02 DCW [id number]) Hip Strength Hip Manual Muscle Testing Bilateral Abduction 4- Good- Adduction 4- Good- Knee Strength Knee Manual Muscle Testing Bilateral Comments All LE MMT 5/5 bilaterally except: Left knee flexion 4/5 PT-OP-Q Treatments Start: 08/21/19 15:30 Freq: Status: Active Protocol: Document 02/26/20 08:17 HH (Rec: 02/26/20 09:51 [id number]) Therapeutic Exercises Supine Exercises piriformis Side bilateral Reps/Minutes 20 secs hold x4 Bryce stretch Supine Exercise Name PT assisted Side bilateral Reps/Minutes 20 secs hold x4 Prone Exercises quad stretch Side bilateral Reps/Minutes 20 secs hold x4 Sitting Exercises hip adductors stretch Sitting Exercise Name long sit with hip abd Reps/Minutes 20 secs hold x4 Comments HEP hamstring stretch Sitting Exercise Name single leg hamstrings stretch Reps/Minutes 20 secs hold x4 Other Exercises couch stretch Other Exercise Name HEP Side bilateral Reps/Minutes 20 secs hold x4 Comments cues to prevent anterior pelvic tilt Manual Therapy Treatment Soft Tissue Mobilization Psoas Body Location R Psoas Mobilization Type Sustained Pressure Intensity/Depth Deep Body Position Supine PT-OP-T Assessment and Plan Start: 08/21/19 15:30 Freq: Status: Active Protocol: Document 02/26/20 08:17 HH (Rec: 02/26/20 09:51 [id number]) Physical Therapy Assessment Goals Three Impairment Pt unable to go out dancing with her Dining Service Worker Goal (LTG) Pt to tolerate dancing for 45 minutes without increasing her pain LTG Duration 04/19/20 Two Impairment Pt unable to sit in her car longer than 30 minutes without moderate pain Dining Service Worker Goal (LTG) Pt to tolerate sitting in her car for 60 minutes with pain < 4/10 LTG Duration 04/19/20 One Impairment Pt does not have an appropriate HEP Short Term Goal (STG) Pt to be independent and compliant with an appropriate HEP STG Duration Met Assessment Summary Assessment Gait and dynamic movement assessment show pt presents excessive lumbar rotation with significant anterior pelvic tilt. Pt shows high muscular tension at hip flexors and quads, so as hip adductors and external rotators. Educated pt to focus on hip mobility and flexibility to reduce compensatory lumbar movements during gait. Physical Therapy Plan Next Visit Focus/Plan Next Note Type Treatment Note Next Visit Plan Assess response to last tx, supine and standing core march for alignment awareness with LS mobility and stability. Continue per PT POC: core stabalization, breathing techniques, and gait training.
--- NOTE | 2020-03-01 11:06 | PT.OTN ---
Current Diagnoses Osteoarthritis of hip, unspecified (03/01/20) Pain in right hip (03/01/20) Pain in left hip (03/01/20) Intervertebral disc disorders with myelopathy, lumbar region (03/01/20) Lumbago with sciatica, unspecified side (03/01/20) Physical Therapy Treatment Note PT-OP-A Visit Information Start: 08/21/19 15:30 Freq: Status: Active Protocol: Document 03/01/20 10:56 AMH (Rec: 03/01/20 11:06 AMH [id number]) Out-Patient Physical Therapy Visit Information Visit Information Visit Type Treatment Note Visit Start Time 09:45 Visit Stop Time 10:30 Total Visit Minutes 45 Visit Number 28 Number of BREAD DOUGH MIXER Visits 0 PT-OP-B Current Condition Start: 08/21/19 15:30 Freq: Status: Active Protocol: Document 08/21/19 15:30 DCW (Rec: 08/21/19 17:32 DCW [id number]) Current Condition History of Current Condition Onset Date Multi-year history Current Complaints low back and bilateral hip pain History of Current Condition Pt is a 58 year old female with a long history of low back and hip pain. Pt reports she has twice had a partial dislocation of her right hip, happening once in the 90s and once in the last decade. 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 Pt notes that this caused so much degeneration in my knees that when I was in my 30s, I couldn't go up and down stairs. Pt reports that since beginning Glucosamine and chondroitin, this has faded, and she is more mobile. She has recently been suffering an increase in bilateral posterior hip pain, especially with extended sitting, or trying to stand up after extended sitting. Pt also reports burning in the back of her hips, L>R. Pt reports that her PCP recently increased her Celebrex, which helped some, but just this past weekend, took a ferry to [place], and after sitting/ lying down for the trip, could barely walk off the ferry she was so stiff and sore. She is currently feeling improved, but everything just feels so tight. Prior Treatments and Tests Hip x-ray: IMPRESSION: Mild bilateral hip degeneration, probably age-appropriate. If the patient's pain or other symptoms persist, consider further evaluation with MRI. Per: Danny Mccullough M.D. on 08/2019 Lumbar x-ray: IMPRESSION: Multilevel moderate lumbar spondylosis and facet arthropathy. Levoscoliosis. Per: Danny Mccullough M.D. on 08/2019 Future Testing and Treatments Planned Possible further evaluation with MRI, per radiologist report PT-OP-C Subjective Start: 08/21/19 15:30 Freq: Status: Active Protocol: Document 03/01/20 10:56 AMH (Rec: 03/01/20 11:06 AMH [id number]) OP-PT Subjective Patient Comments Patient Comments pt reports she has been working on her stretches at home and thinking about relaxation of the pelvic floor . She tried to voiding techniques and this did help her to fully void and she did not notice the leaking when transfering into bed at night. PT-OP-F Manual Assessment Start: 08/21/19 15:30 Freq: Status: Active Protocol: Document 02/18/20 15:20 DCW (Rec: 02/18/20 16:02 DCW [id number]) Manual Assessments Soft Tissue Assessment Soft Tissue Mobility Assessment Tenderness to palpation 1/4 - Complaint of Pain: right hip adductors Tenderness to palpation 2/4 - Pain with wincing: L QL, Bilateral piriformis, bilateral psoas Moderate-severe tone along bilateral posterior, lateral, and anterior hips, L>R Joint Mobility Assessment Joint Mobility Assessment Hypomobility throughout lumbar spine. Hypermobility of left tibiotalar joint PT-OP-G Mobility & Gait Start: 11/12/19 17:28 Freq: Status: Active Protocol: Document 02/18/20 15:20 DCW (Rec: 02/18/20 16:02 DCW [id number]) OP Gait Assessment Gait Deviations General Gait Pattern Flexed Trunk,Lateral Trunk Lean Comments Gait Comments During gait, pt demonstrates increased lumbar rotation and a mild left lateral flexion. PT-OP-K Range of Motion Start: 08/21/19 15:30 Freq: Status: Active Protocol: Document 02/18/20 15:20 DCW (Rec: 02/18/20 16:02 DCW [id number]) Lumbar Spine Range of Motion Lumbar Spine Active Degrees Testing Position Standing Flexion 60 Extension 8 ROM Limitations Soft Tissue Tightness,Muscle Tone,Pain Comments Nearly entire extension ROM is from her thoracic spine, minimal motion in lumbar PT-OP-L Special Tests Start: 08/21/19 15:30 Freq: Status: Active Protocol: Document 02/18/20 15:20 DCW (Rec: 02/18/20 16:02 DCW [id number]) Special Tests Hip Special Tests RAMONA Test Results Positive ipsilateral left Other Special Tests Special Tests Pt exhibits significant accessory muscle breathing when distracted PT-OP-M Strength Start: 08/21/19 15:30 Freq: Status: Active Protocol: Document 02/18/20 15:20 DCW (Rec: 02/18/20 16:02 DCW [id number]) Hip Strength Hip Manual Muscle Testing Bilateral Abduction 4- Good- Adduction 4- Good- Knee Strength Knee Manual Muscle Testing Bilateral Comments All LE MMT 5/5 bilaterally except: Left knee flexion 4/5 PT-OP-Q Treatments Start: 08/21/19 15:30 Freq: Status: Active Protocol: Document 03/01/20 10:56 AMH (Rec: 03/01/20 11:06 AMH [id number]) Therapeutic Exercises Supine Exercises Pelvic floor long holds Supine Exercise Name Pelvic floor long holds Reps/Minutes hold x 10 seconds Comments focus on the relaxation following a contraction diaphramatic breathing with activity Supine Exercise Name seated diaphragmatic breathing Reps/Minutes tried both sitting and supine Comments focus on the pelvic floor relaxation with inhalation Other Exercises 1 Other Exercise Name sergei pose Comments with pillows behind the buttocks Manual Therapy Treatment Soft Tissue Mobilization 1 Body Location assessment of tone along the sacrum and coccyx Body Position Prone Comments I didn't find trigger points that I was expeciting to find in the coccyx region, tightness found left QL and right piriformis. I did talk with Lanny about using her miracle balls for self release of the piriformis. Neuro Re-Education Treatment Other Activities 1 Details EMG biobeedback for pelvic floor activation and relaxation Comments education on activation of the pelvic floor and neuro re- education on pelvic floor relaxation following a contraction. Average resting tone is 4.6 uv with average contraction of 14.2 uv uv and max of 25.2 uv. The EVGENY template was used today for neuroawareness of pelvic floor relaxation PT-OP-T Assessment and Plan Start: 08/21/19 15:30 Freq: Status: Active Protocol: Document 03/01/20 10:56 [facility] (Rec: 03/01/20 11:06 [facility] [email or web address]) Physical Therapy Assessment Assessment Summary Assessment Pt found success with pelvic floor and abdominal relaxation when voiding and voiding strategies to fully empty her bladder. She notes she didn't experience the leakage this week. She remains tight in her pelvic floor muscles on EMG biofeedback. We worked on relaxed awareness of the pelvic floor with diaphragmatic breathing and templates on EMG biofeedback for visualization of relaxation. Pt to continue working on her hip stretches and hip mobility as I feel this will also help the pelvic floor. MFR in the pelvic floor as well as QL and pirifomis regions may also be beneficial Physical Therapy Plan Frequency and Duration Frequency of Treatment 2x/Week Duration of Treatment 12 weeks Plan of Care Start Date 02/18/20 Plan of Care End Date 05/12/20 Therapeutic Interventions Therapeutic Interventions Aquatic Therapy,Home Exercise Program,Joint Mobilizations, Manual Therapy,Patient/ Caregiver Education,Self-Care/ Home Management,Soft Tissue Mobilization,Therapeutic Activities,Therapeutic Exercises Modalities Cold Pack/Ice Massage,Electric Stimulation,Hot Packs, Traction- Mechanical, Ultrasound
--- NOTE | 2020-03-03 10:31 | PT.OTN ---
Current Diagnoses Osteoarthritis of hip, unspecified (03/03/20) Pain in right hip (03/03/20) Pain in left hip (03/03/20) Intervertebral disc disorders with myelopathy, lumbar region (03/03/20) Lumbago with sciatica, unspecified side (03/03/20) Physical Therapy Treatment Note PT-OP-A Visit Information Start: 08/21/19 15:30 Freq: Status: Active Protocol: Document 03/03/20 09:50 DCW (Rec: 03/03/20 10:31 DCW [id number]) Out-Patient Physical Therapy Visit Information Visit Information Visit Type Treatment Note Visit Start Time 09:50 Visit Stop Time 10:30 Total Visit Minutes 40 Visit Number 29 Number of TURKEY EGG GATHERER Visits 0 PT-OP-B Current Condition Start: 08/21/19 15:30 Freq: Status: Active Protocol: Document 08/21/19 15:30 DCW (Rec: 08/21/19 17:32 DCW [id number]) Current Condition History of Current Condition Onset Date Multi-year history Current Complaints low back and bilateral hip pain History of Current Condition Pt is a 58 year old female with a long history of low back and hip pain. Pt reports she has twice had a partial dislocation of her right hip, happening once in the 90s and once in the last decade. 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 Pt notes that this caused so much degeneration in my knees that when I was in my 30s, I couldn't go up and down stairs. Pt reports that since beginning Glucosamine and chondroitin, this has faded, and she is more mobile. She has recently been suffering an increase in bilateral posterior hip pain, especially with extended sitting, or trying to stand up after extended sitting. Pt also reports burning in the back of her hips, L>R. Pt reports that her PCP recently increased her Celebrex, which helped some, but just this past weekend, took a ferry to [place], and after sitting/ lying down for the trip, could barely walk off the ferry she was so stiff and sore. She is currently feeling improved, but everything just feels so tight. Prior Treatments and Tests Hip x-ray: IMPRESSION: Mild bilateral hip degeneration, probably age-appropriate. If the patient's pain or other symptoms persist, consider further evaluation with MRI. Per: Danny Mccullough M.D. on 08/2019 Lumbar x-ray: IMPRESSION: Multilevel moderate lumbar spondylosis and facet arthropathy. Levoscoliosis. Per: Danny Mccullough M.D. on 08/2019 Future Testing and Treatments Planned Possible further evaluation with MRI, per radiologist report PT-OP-C Subjective Start: 08/21/19 15:30 Freq: Status: Active Protocol: Document 03/03/20 09:50 DCW (Rec: 03/03/20 10:31 DCW [id number]) OP-PT Subjective Patient Comments Patient Comments Pt reports that she has been feeling really sore over the past few days, it just feels tight. PT-OP-F Manual Assessment Start: 08/21/19 15:30 Freq: Status: Active Protocol: Document 02/18/20 15:20 DCW (Rec: 02/18/20 16:02 DCW [id number]) Manual Assessments Soft Tissue Assessment Soft Tissue Mobility Assessment Tenderness to palpation 1/4 - Complaint of Pain: right hip adductors Tenderness to palpation 2/4 - Pain with wincing: L QL, Bilateral piriformis, bilateral psoas Moderate-severe tone along bilateral posterior, lateral, and anterior hips, L>R Joint Mobility Assessment Joint Mobility Assessment Hypomobility throughout lumbar spine. Hypermobility of left tibiotalar joint PT-OP-G Mobility & Gait Start: 11/12/19 17:28 Freq: Status: Active Protocol: Document 02/18/20 15:20 DCW (Rec: 02/18/20 16:02 DCW [id number]) OP Gait Assessment Gait Deviations General Gait Pattern Flexed Trunk,Lateral Trunk Lean Comments Gait Comments During gait, pt demonstrates increased lumbar rotation and a mild left lateral flexion. PT-OP-K Range of Motion Start: 08/21/19 15:30 Freq: Status: Active Protocol: Document 02/18/20 15:20 DCW (Rec: 02/18/20 16:02 DCW [id number]) Lumbar Spine Range of Motion Lumbar Spine Active Degrees Testing Position Standing Flexion 60 Extension 8 ROM Limitations Soft Tissue Tightness,Muscle Tone,Pain Comments Nearly entire extension ROM is from her thoracic spine, minimal motion in lumbar PT-OP-L Special Tests Start: 08/21/19 15:30 Freq: Status: Active Protocol: Document 02/18/20 15:20 DCW (Rec: 02/18/20 16:02 DCW [id number]) Special Tests Hip Special Tests RAMONA Test Results Positive ipsilateral left Other Special Tests Special Tests Pt exhibits significant accessory muscle breathing when distracted PT-OP-M Strength Start: 08/21/19 15:30 Freq: Status: Active Protocol: Document 02/18/20 15:20 DCW (Rec: 02/18/20 16:02 DCW [id number]) Hip Strength Hip Manual Muscle Testing Bilateral Abduction 4- Good- Adduction 4- Good- Knee Strength Knee Manual Muscle Testing Bilateral Comments All LE MMT 5/5 bilaterally except: Left knee flexion 4/5 PT-OP-Q Treatments Start: 08/21/19 15:30 Freq: Status: Active Protocol: Document 03/03/20 09:50 DCW (Rec: 03/03/20 10:31 DCW [id number]) Cardio Equipment Bicycle (Upright) Duration (Minutes) 5 Resistance 10 Seat Position 4 Therapeutic Exercises Supine Exercises piriformis Side bilateral Reps/Minutes 20 secs hold x4 HS, adductor, ITb stretch Supine Exercise Name HS stretch, Adductor stretch Comments cued PPT awareness Bryce stretch Supine Exercise Name PT assisted Side bilateral Reps/Minutes 20 secs hold x4 Prone Exercises quad stretch Side bilateral Reps/Minutes 20 secs hold x4 Manual Therapy Treatment Soft Tissue Mobilization Piriformis Body Location B Piriformis Mobilization Type Sustained Pressure Intensity/Depth Deep Psoas Body Location B Psoas Mobilization Type Sustained Pressure Intensity/Depth Deep Body Position Supine PT-OP-T Assessment and Plan Start: 08/21/19 15:30 Freq: Status: Active Protocol: Document 03/03/20 09:50 DCW (Rec: 03/03/20 10:31 DCW [id number]) Physical Therapy Assessment Goals Three Impairment Pt unable to go out dancing with her Land Agent Goal (LTG) Pt to tolerate dancing for 45 minutes without increasing her pain LTG Duration 04/19/20 Two Impairment Pt unable to sit in her car longer than 30 minutes without moderate pain Land Agent Goal (LTG) Pt to tolerate sitting in her car for 60 minutes with pain < 4/10 LTG Duration 04/19/20 One Impairment Pt does not have an appropriate HEP Short Term Goal (STG) Pt to be independent and compliant with an appropriate HEP STG Duration Met Assessment Summary Assessment Pt noticeably more tight today through her posterior hip musculature, particularly along the bilateral piriformis . Pt stated improvement following manual therapy. Physical Therapy Plan Frequency and Duration Frequency of Treatment 2x/Week Duration of Treatment 12 weeks Plan of Care Start Date 02/18/20 Plan of Care End Date 05/12/20 Therapeutic Interventions Therapeutic Interventions Aquatic Therapy,Home Exercise Program,Joint Mobilizations, Manual Therapy,Patient/ Caregiver Education,Self-Care/ Home Management,Soft Tissue Mobilization,Therapeutic Activities,Therapeutic Exercises Modalities Cold Pack/Ice Massage,Electric Stimulation,Hot Packs, Traction- Mechanical, Ultrasound Next Visit Focus/Plan Next Note Type Treatment Note Next Visit Plan Assess response to last tx, supine and standing core march for alignment awareness with LS mobility and stability. Continue per PT POC: core stabalization, breathing techniques, and gait training.
--- NOTE | 2020-03-08 10:32 | PT.OTN ---
Current Diagnoses Osteoarthritis of hip, unspecified (03/08/20) Pain in right hip (03/08/20) Pain in left hip (03/08/20) Intervertebral disc disorders with myelopathy, lumbar region (03/08/20) Lumbago with sciatica, unspecified side (03/08/20) Physical Therapy Treatment Note PT-OP-A Visit Information Start: 08/21/19 15:30 Freq: Status: Active Protocol: Document 03/08/20 09:50 DCW (Rec: 03/08/20 10:31 DCW [id number]) Out-Patient Physical Therapy Visit Information Visit Information Visit Type Treatment Note Visit Start Time 09:50 Visit Stop Time 10:30 Total Visit Minutes 40 Visit Number 30 Number of MOTOR BLOCK MECHANIC Visits 0 Evaluation Information Evaluation Date 08/21/19 PT-OP-B Current Condition Start: 08/21/19 15:30 Freq: Status: Active Protocol: Document 08/21/19 15:30 DCW (Rec: 08/21/19 17:32 DCW [id number]) Current Condition History of Current Condition Onset Date Multi-year history Current Complaints low back and bilateral hip pain History of Current Condition Pt is a 58 year old female with a long history of low back and hip pain. Pt reports she has twice had a partial dislocation of her right hip, happening once in the 90s and once in the last decade. 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 Pt notes that this caused so much degeneration in my knees that when I was in my 30s, I couldn't go up and down stairs. Pt reports that since beginning Glucosamine and chondroitin, this has faded, and she is more mobile. She has recently been suffering an increase in bilateral posterior hip pain, especially with extended sitting, or trying to stand up after extended sitting. Pt also reports burning in the back of her hips, L>R. Pt reports that her PCP recently increased her Celebrex, which helped some, but just this past weekend, took a ferry to [place], and after sitting/ lying down for the trip, could barely walk off the ferry she was so stiff and sore. She is currently feeling improved, but everything just feels so tight. Prior Treatments and Tests Hip x-ray: IMPRESSION: Mild bilateral hip degeneration, probably age-appropriate. If the patient's pain or other symptoms persist, consider further evaluation with MRI. Per: Danny Mccullough M.D. on 08/2019 Lumbar x-ray: IMPRESSION: Multilevel moderate lumbar spondylosis and facet arthropathy. Levoscoliosis. Per: Danny Mccullough M.D. on 08/2019 Future Testing and Treatments Planned Possible further evaluation with MRI, per radiologist report PT-OP-C Subjective Start: 08/21/19 15:30 Freq: Status: Active Protocol: Document 03/08/20 09:50 DCW (Rec: 03/08/20 10:31 DCW [id number]) OP-PT Subjective Patient Comments Patient Comments Pt still feeling a little tight today, especially in her low back, but better than last week. PT-OP-F Manual Assessment Start: 08/21/19 15:30 Freq: Status: Active Protocol: Document 02/18/20 15:20 DCW (Rec: 02/18/20 16:02 DCW [id number]) Manual Assessments Soft Tissue Assessment Soft Tissue Mobility Assessment Tenderness to palpation 1/4 - Complaint of Pain: right hip adductors Tenderness to palpation 2/4 - Pain with wincing: L QL, Bilateral piriformis, bilateral psoas Moderate-severe tone along bilateral posterior, lateral, and anterior hips, L>R Joint Mobility Assessment Joint Mobility Assessment Hypomobility throughout lumbar spine. Hypermobility of left tibiotalar joint PT-OP-G Mobility & Gait Start: 11/12/19 17:28 Freq: Status: Active Protocol: Document 02/18/20 15:20 DCW (Rec: 02/18/20 16:02 DCW [id number]) OP Gait Assessment Gait Deviations General Gait Pattern Flexed Trunk,Lateral Trunk Lean Comments Gait Comments During gait, pt demonstrates increased lumbar rotation and a mild left lateral flexion. PT-OP-K Range of Motion Start: 08/21/19 15:30 Freq: Status: Active Protocol: Document 02/18/20 15:20 DCW (Rec: 02/18/20 16:02 DCW [id number]) Lumbar Spine Range of Motion Lumbar Spine Active Degrees Testing Position Standing Flexion 60 Extension 8 ROM Limitations Soft Tissue Tightness,Muscle Tone,Pain Comments Nearly entire extension ROM is from her thoracic spine, minimal motion in lumbar PT-OP-L Special Tests Start: 08/21/19 15:30 Freq: Status: Active Protocol: Document 02/18/20 15:20 DCW (Rec: 02/18/20 16:02 DCW [id number]) Special Tests Hip Special Tests RAMONA Test Results Positive ipsilateral left Other Special Tests Special Tests Pt exhibits significant accessory muscle breathing when distracted PT-OP-M Strength Start: 08/21/19 15:30 Freq: Status: Active Protocol: Document 02/18/20 15:20 DCW (Rec: 02/18/20 16:02 DCW [id number]) Hip Strength Hip Manual Muscle Testing Bilateral Abduction 4- Good- Adduction 4- Good- Knee Strength Knee Manual Muscle Testing Bilateral Comments All LE MMT 5/5 bilaterally except: Left knee flexion 4/5 PT-OP-Q Treatments Start: 08/21/19 15:30 Freq: Status: Active Protocol: Document 03/08/20 09:50 DCW (Rec: 03/08/20 10:31 DCW [id number]) Therapeutic Exercises Supine Exercises piriformis Side bilateral Reps/Minutes 20 secs hold x4 HS, adductor, ITb stretch Supine Exercise Name HS stretch, Adductor stretch Comments cued PPT awareness Bryce stretch Supine Exercise Name PT assisted Side bilateral Reps/Minutes 20 secs hold x4 Prone Exercises quad stretch Side bilateral Reps/Minutes 20 secs hold x4 Sitting Exercises 1 Sitting Exercise Name Lateral trunk flexion Side bilateral Other Exercises 2 Other Exercise Name [place] Side bilateral Gait Training Gait Activity 1 Description /c and /s Orthotics in clogs Comments Focus on foot positioning, heel movement, correcting pronation to improve hip alignment Manual Therapy Treatment Soft Tissue Mobilization Piriformis Body Location B Piriformis Mobilization Type Sustained Pressure Intensity/Depth Deep QL Body Location L QL Mobilization Type Sustained Pressure,Trigger Point Release Intensity/Depth Deep Body Position Prone Psoas Body Location B Psoas Mobilization Type Sustained Pressure Intensity/Depth Deep Body Position Supine PT-OP-T Assessment and Plan Start: 08/21/19 15:30 Freq: Status: Active Protocol: Document 03/08/20 09:50 DCW (Rec: 03/08/20 10:31 DCW [id number]) Physical Therapy Assessment Goals Three Impairment Pt unable to go out dancing with her Box Cutter Goal (LTG) Pt to tolerate dancing for 45 minutes without increasing her pain LTG Duration 04/19/20 Two Impairment Pt unable to sit in her car longer than 30 minutes without moderate pain Box Cutter Goal (LTG) Pt to tolerate sitting in her car for 60 minutes with pain < 4/10 LTG Duration 04/19/20 One Impairment Pt does not have an appropriate HEP Short Term Goal (STG) Pt to be independent and compliant with an appropriate HEP STG Duration Met Assessment Summary Assessment Pt moving better today, able to tolerate more stretching and manual therapy today. Physical Therapy Plan Frequency and Duration Frequency of Treatment 2x/Week Duration of Treatment 12 weeks Plan of Care Start Date 02/18/20 Plan of Care End Date 05/12/20 Therapeutic Interventions Therapeutic Interventions Aquatic Therapy,Home Exercise Program,Joint Mobilizations, Manual Therapy,Patient/ Caregiver Education,Self-Care/ Home Management,Soft Tissue Mobilization,Therapeutic Activities,Therapeutic Exercises Modalities Cold Pack/Ice Massage,Electric Stimulation,Hot Packs, Traction- Mechanical, Ultrasound Next Visit Focus/Plan Next Note Type Treatment Note Next Visit Plan Assess response to last tx, supine and standing core march for alignment awareness with LS mobility and stability. Continue per PT POC: core stabalization, breathing techniques, and gait training.
--- NOTE | 2020-03-10 10:32 | PT.OTN ---
Current Diagnoses Osteoarthritis of hip, unspecified (03/10/20) Pain in right hip (03/10/20) Pain in left hip (03/10/20) Intervertebral disc disorders with myelopathy, lumbar region (03/10/20) Lumbago with sciatica, unspecified side (03/10/20) Physical Therapy Treatment Note PT-OP-A Visit Information Start: 08/21/19 15:30 Freq: Status: Active Protocol: Document 03/10/20 09:50 DCW (Rec: 03/10/20 10:32 DCW [id number]) Out-Patient Physical Therapy Visit Information Visit Information Visit Type Treatment Note Visit Start Time 09:50 Visit Stop Time 10:30 Total Visit Minutes 40 Visit Number 31 Number of DEALER SUPPORT TECHNICIAN Visits 0 Evaluation Information Evaluation Date 08/21/19 PT-OP-B Current Condition Start: 08/21/19 15:30 Freq: Status: Active Protocol: Document 08/21/19 15:30 DCW (Rec: 08/21/19 17:32 DCW [id number]) Current Condition History of Current Condition Onset Date Multi-year history Current Complaints low back and bilateral hip pain History of Current Condition Pt is a 58 year old female with a long history of low back and hip pain. Pt reports she has twice had a partial dislocation of her right hip, happening once in the 90s and once in the last decade. 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 Pt notes that this caused so much degeneration in my knees that when I was in my 30s, I couldn't go up and down stairs. Pt reports that since beginning Glucosamine and chondroitin, this has faded, and she is more mobile. She has recently been suffering an increase in bilateral posterior hip pain, especially with extended sitting, or trying to stand up after extended sitting. Pt also reports burning in the back of her hips, L>R. Pt reports that her PCP recently increased her Celebrex, which helped some, but just this past weekend, took a ferry to [place], and after sitting/ lying down for the trip, could barely walk off the ferry she was so stiff and sore. She is currently feeling improved, but everything just feels so tight. Prior Treatments and Tests Hip x-ray: IMPRESSION: Mild bilateral hip degeneration, probably age-appropriate. If the patient's pain or other symptoms persist, consider further evaluation with MRI. Per: Danny Mccullough M.D. on 08/2019 Lumbar x-ray: IMPRESSION: Multilevel moderate lumbar spondylosis and facet arthropathy. Levoscoliosis. Per: Danny Mccullough M.D. on 08/2019 Future Testing and Treatments Planned Possible further evaluation with MRI, per radiologist report PT-OP-C Subjective Start: 08/21/19 15:30 Freq: Status: Active Protocol: Document 03/10/20 09:50 DCW (Rec: 03/10/20 10:32 DCW [id number]) OP-PT Subjective Patient Comments Patient Comments Pt was doing well yesterday, but is very sore this morning, although she admits she only woke up 50 minutes ago, and took her medication 10 minutes ago. PT-OP-F Manual Assessment Start: 08/21/19 15:30 Freq: Status: Active Protocol: Document 02/18/20 15:20 DCW (Rec: 02/18/20 16:02 DCW [id number]) Manual Assessments Soft Tissue Assessment Soft Tissue Mobility Assessment Tenderness to palpation 1/4 - Complaint of Pain: right hip adductors Tenderness to palpation 2/4 - Pain with wincing: L QL, Bilateral piriformis, bilateral psoas Moderate-severe tone along bilateral posterior, lateral, and anterior hips, L>R Joint Mobility Assessment Joint Mobility Assessment Hypomobility throughout lumbar spine. Hypermobility of left tibiotalar joint PT-OP-G Mobility & Gait Start: 11/12/19 17:28 Freq: Status: Active Protocol: Document 02/18/20 15:20 DCW (Rec: 02/18/20 16:02 DCW [id number]) OP Gait Assessment Gait Deviations General Gait Pattern Flexed Trunk,Lateral Trunk Lean Comments Gait Comments During gait, pt demonstrates increased lumbar rotation and a mild left lateral flexion. PT-OP-K Range of Motion Start: 08/21/19 15:30 Freq: Status: Active Protocol: Document 02/18/20 15:20 DCW (Rec: 02/18/20 16:02 DCW [id number]) Lumbar Spine Range of Motion Lumbar Spine Active Degrees Testing Position Standing Flexion 60 Extension 8 ROM Limitations Soft Tissue Tightness,Muscle Tone,Pain Comments Nearly entire extension ROM is from her thoracic spine, minimal motion in lumbar PT-OP-L Special Tests Start: 08/21/19 15:30 Freq: Status: Active Protocol: Document 02/18/20 15:20 DCW (Rec: 02/18/20 16:02 DCW [id number]) Special Tests Hip Special Tests RAMONA Test Results Positive ipsilateral left Other Special Tests Special Tests Pt exhibits significant accessory muscle breathing when distracted PT-OP-M Strength Start: 08/21/19 15:30 Freq: Status: Active Protocol: Document 02/18/20 15:20 DCW (Rec: 02/18/20 16:02 DCW [id number]) Hip Strength Hip Manual Muscle Testing Bilateral Abduction 4- Good- Adduction 4- Good- Knee Strength Knee Manual Muscle Testing Bilateral Comments All LE MMT 5/5 bilaterally except: Left knee flexion 4/5 PT-OP-Q Treatments Start: 08/21/19 15:30 Freq: Status: Active Protocol: Document 03/10/20 09:50 DCW (Rec: 03/10/20 10:32 DCW [id number]) Therapeutic Exercises Supine Exercises piriformis Side bilateral Reps/Minutes 20 secs hold x4 HS, adductor, ITb stretch Supine Exercise Name HS stretch, Adductor stretch Comments cued PPT awareness Bryce stretch Supine Exercise Name PT assisted Side bilateral Reps/Minutes 20 secs hold x4 Prone Exercises quad stretch Side bilateral Reps/Minutes 20 secs hold x4 Gait Training Gait Activity 1 Description gait trial with various shoes Manual Therapy Treatment Soft Tissue Mobilization Piriformis Body Location B Piriformis Mobilization Type Sustained Pressure Intensity/Depth Deep QL Body Location L QL Mobilization Type Sustained Pressure,Trigger Point Release Intensity/Depth Deep Body Position Prone Psoas Body Location B Psoas Mobilization Type Sustained Pressure Intensity/Depth Deep Body Position Supine Manual Traction hip distraction Details L LE - Long [place] Body Position Supine Reps/Duration 10 secs hold x 5 Comments reports of symptoms relief. PT-OP-T Assessment and Plan Start: 08/21/19 15:30 Freq: Status: Active Protocol: Document 03/10/20 09:50 DCW (Rec: 03/10/20 10:32 DCW [id number]) Physical Therapy Assessment Goals Three Impairment Pt unable to go out dancing with her Donor Support Technician Goal (LTG) Pt to tolerate dancing for 45 minutes without increasing her pain LTG Duration 04/19/20 Two Impairment Pt unable to sit in her car longer than 30 minutes without moderate pain Group Home Goal (LTG) Pt to tolerate sitting in her car for 60 minutes with pain < 4/10 LTG Duration 04/19/20 One Impairment Pt does not have an appropriate HEP Short Term Goal (STG) Pt to be independent and compliant with an appropriate HEP STG Duration Met Assessment Summary Assessment Pt still experiencing increased T/L paraspinal muscle tone, however is greatly improved from earlier in the week. Pt shows improved gait pattern with increased ankle support, discussed use of ankle brace for additional support in walking. Physical Therapy Plan Frequency and Duration Frequency of Treatment 2x/Week Duration of Treatment 12 weeks Plan of Care Start Date 02/18/20 Plan of Care End Date 05/12/20 Therapeutic Interventions Therapeutic Interventions Aquatic Therapy,Home Exercise Program,Joint Mobilizations, Manual Therapy,Patient/ Caregiver Education,Self-Care/ Home Management,Soft Tissue Mobilization,Therapeutic Activities,Therapeutic Exercises Modalities Cold Pack/Ice Massage,Electric Stimulation,Hot Packs, Traction- Mechanical, Ultrasound Next Visit Focus/Plan Next Note Type Treatment Note Next Visit Plan Assess response to last tx, supine and standing core march for alignment awareness with LS mobility and stability. Continue per PT POC: core stabilization, breathing techniques, and gait training.
--- NOTE | 2020-03-15 11:26 | PT.OTN ---
Current Diagnoses Osteoarthritis of hip, unspecified (03/15/20) Pain in right hip (03/15/20) Pain in left hip (03/15/20) Intervertebral disc disorders with myelopathy, lumbar region (03/15/20) Lumbago with sciatica, unspecified side (03/15/20) Physical Therapy Treatment Note PT-OP-A Visit Information Start: 08/21/19 15:30 Freq: Status: Active Protocol: Document 03/15/20 09:45 HH (Rec: 03/15/20 11:26 HH [id number]) Out-Patient Physical Therapy Visit Information Visit Information Visit Type Treatment Note Visit Start Time 09:45 Visit Stop Time 10:29 Total Visit Minutes 44 Visit Number 32 Number of ELECTRICAL ASSEMBLIES SUPERVISOR Visits 0 PT-OP-B Current Condition Start: 08/21/19 15:30 Freq: Status: Active Protocol: Document 08/21/19 15:30 DCW (Rec: 08/21/19 17:32 DCW [id number]) Current Condition History of Current Condition Onset Date Multi-year history Current Complaints low back and bilateral hip pain History of Current Condition Pt is a 58 year old female with a long history of low back and hip pain. Pt reports she has twice had a partial dislocation of her right hip, happening once in the 90s and once in the last decade. 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 Pt notes that this caused so much degeneration in my knees that when I was in my 30s, I couldn't go up and down stairs. Pt reports that since beginning Glucosamine and chondroitin, this has faded, and she is more mobile. She has recently been suffering an increase in bilateral posterior hip pain, especially with extended sitting, or trying to stand up after extended sitting. Pt also reports burning in the back of her hips, L>R. Pt reports that her PCP recently increased her Celebrex, which helped some, but just this past weekend, took a ferry to [place], and after sitting/ lying down for the trip, could barely walk off the ferry she was so stiff and sore. She is currently feeling improved, but everything just feels so tight. Prior Treatments and Tests Hip x-ray: IMPRESSION: Mild bilateral hip degeneration, probably age-appropriate. If the patient's pain or other symptoms persist, consider further evaluation with MRI. Per: Danny Mccullough M.D. on 08/2019 Lumbar x-ray: IMPRESSION: Multilevel moderate lumbar spondylosis and facet arthropathy. Levoscoliosis. Per: Danny Mccullough M.D. on 08/2019 Future Testing and Treatments Planned Possible further evaluation with MRI, per radiologist report PT-OP-C Subjective Start: 08/21/19 15:30 Freq: Status: Active Protocol: Document 03/15/20 09:45 HH (Rec: 03/15/20 11:26 HH [id number]) OP-PT Subjective Patient Comments Patient Comments The boots give me extra stability on my ankles. I feel more secure in general. I still feel sore here and there . PT-OP-F Manual Assessment Start: 08/21/19 15:30 Freq: Status: Active Protocol: Document 02/18/20 15:20 DCW (Rec: 02/18/20 16:02 DCW [id number]) Manual Assessments Soft Tissue Assessment Soft Tissue Mobility Assessment Tenderness to palpation 1/4 - Complaint of Pain: right hip adductors Tenderness to palpation 2/4 - Pain with wincing: L QL, Bilateral piriformis, bilateral psoas Moderate-severe tone along bilateral posterior, lateral, and anterior hips, L>R Joint Mobility Assessment Joint Mobility Assessment Hypomobility throughout lumbar spine. Hypermobility of left tibiotalar joint PT-OP-G Mobility & Gait Start: 11/12/19 17:28 Freq: Status: Active Protocol: Document 02/18/20 15:20 DCW (Rec: 02/18/20 16:02 DCW [id number]) OP Gait Assessment Gait Deviations General Gait Pattern Flexed Trunk,Lateral Trunk Lean Comments Gait Comments During gait, pt demonstrates increased lumbar rotation and a mild left lateral flexion. PT-OP-K Range of Motion Start: 08/21/19 15:30 Freq: Status: Active Protocol: Document 02/18/20 15:20 DCW (Rec: 02/18/20 16:02 DCW [id number]) Lumbar Spine Range of Motion Lumbar Spine Active Degrees Testing Position Standing Flexion 60 Extension 8 ROM Limitations Soft Tissue Tightness,Muscle Tone,Pain Comments Nearly entire extension ROM is from her thoracic spine, minimal motion in lumbar PT-OP-L Special Tests Start: 08/21/19 15:30 Freq: Status: Active Protocol: Document 02/18/20 15:20 DCW (Rec: 02/18/20 16:02 DCW [id number]) Special Tests Hip Special Tests RAMONA Test Results Positive ipsilateral left Other Special Tests Special Tests Pt exhibits significant accessory muscle breathing when distracted PT-OP-M Strength Start: 08/21/19 15:30 Freq: Status: Active Protocol: Document 02/18/20 15:20 DCW (Rec: 02/18/20 16:02 DCW [id number]) Hip Strength Hip Manual Muscle Testing Bilateral Abduction 4- Good- Adduction 4- Good- Knee Strength Knee Manual Muscle Testing Bilateral Comments All LE MMT 5/5 bilaterally except: Left knee flexion 4/5 PT-OP-Q Treatments Start: 08/21/19 15:30 Freq: Status: Active Protocol: Document 03/15/20 09:45 HH (Rec: 03/15/20 11:26 HH [id number]) Therapeutic Exercises Supine Exercises supine hip ER Side bilateral Equipment Used yellow band Reps/Minutes 12 x2 HS, adductor, ITb stretch Supine Exercise Name HS stretch, Adductor stretch Comments cued PPT awareness Bryce stretch Supine Exercise Name PT assisted Side bilateral Reps/Minutes 20 secs hold x4 pelvic tilt/ neutral pelvis Side bilateral Reps/Minutes 12 x 2 Comments focus on PPT without lumbar extension Prone Exercises quad stretch Prone Exercise Name pillow underneath hips Side bilateral Reps/Minutes 20 secs hold x4 quadruped LE ext Prone Exercise Name elbow on table, unilateral LE extension Reps/Minutes 8 x 2 Comments cues on avoid lumbar extension Standing Exercises staggered stance weight shift Standing Exercise Name to facilitate hip flexor stretch Side bilateral Reps/Minutes 10 each side x 3 Comments feet point forward, hip shift anteriorly and avoid lumbar extension PT-OP-T Assessment and Plan Start: 08/21/19 15:30 Freq: Status: Active Protocol: Document 03/15/20 09:45 HH (Rec: 03/15/20 11:26 [id number]) Physical Therapy Assessment Goals Three Impairment Pt unable to go out dancing with her Surface Hydrologist Goal (LTG) Pt to tolerate dancing for 45 minutes without increasing her pain LTG Duration 04/19/20 Two Impairment Pt unable to sit in her car longer than 30 minutes without moderate pain Usp Goal (LTG) Pt to tolerate sitting in her car for 60 minutes with pain < 4/10 LTG Duration 04/19/20 One Impairment Pt does not have an appropriate HEP Short Term Goal (STG) Pt to be independent and compliant with an appropriate HEP STG Duration Met Assessment Summary Assessment Pt has improved mobility for hip adductors and hamstrings but hip flexors and upper quads are cont to have high tension. Tx focus on hip extension stretch and active hip extension, along with hip extension during gait training . Physical Therapy Plan Next Visit Focus/Plan Next Note Type Treatment Note Next Visit Plan Assess response to last tx, supine and standing core march for alignment awareness with LS mobility and stability. Continue per PT POC: core stabalization, breathing techniques, and gait training.
--- NOTE | 2020-03-17 11:21 | PT.OTN ---
Current Diagnoses Osteoarthritis of hip, unspecified (03/17/20) Pain in right hip (03/17/20) Pain in left hip (03/17/20) Intervertebral disc disorders with myelopathy, lumbar region (03/17/20) Lumbago with sciatica, unspecified side (03/17/20) Physical Therapy Treatment Note PT-OP-A Visit Information Start: 08/21/19 15:30 Freq: Status: Active Protocol: Document 03/17/20 10:43 DCW (Rec: 03/17/20 11:20 DCW [id number]) Out-Patient Physical Therapy Visit Information Visit Information Visit Type Treatment Note Visit Note 13 min late Visit Start Time 10:43 Visit Stop Time 11:15 Total Visit Minutes 32 Visit Number 31 Number of OCCUPATIONAL THERAPY AIDES TEACHER Visits 0 Evaluation Information Evaluation Date 08/21/19 PT-OP-B Current Condition Start: 08/21/19 15:30 Freq: Status: Active Protocol: Document 08/21/19 15:30 DCW (Rec: 08/21/19 17:32 DCW [id number]) Current Condition History of Current Condition Onset Date Multi-year history Current Complaints low back and bilateral hip pain History of Current Condition Pt is a 58 year old female with a long history of low back and hip pain. Pt reports she has twice had a partial dislocation of her right hip, happening once in the 90s and once in the last decade. 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 Pt notes that this caused so much degeneration in my knees that when I was in my 30s, I couldn't go up and down stairs. Pt reports that since beginning Glucosamine and chondroitin, this has faded, and she is more mobile. She has recently been suffering an increase in bilateral posterior hip pain, especially with extended sitting, or trying to stand up after extended sitting. Pt also reports burning in the back of her hips, L>R. Pt reports that her PCP recently increased her Celebrex, which helped some, but just this past weekend, took a ferry to [place], and after sitting/ lying down for the trip, could barely walk off the ferry she was so stiff and sore. She is currently feeling improved, but everything just feels so tight. Prior Treatments and Tests Hip x-ray: IMPRESSION: Mild bilateral hip degeneration, probably age-appropriate. If the patient's pain or other symptoms persist, consider further evaluation with MRI. Per: Danny Mccullough M.D. on 08/2019 Lumbar x-ray: IMPRESSION: Multilevel moderate lumbar spondylosis and facet arthropathy. Levoscoliosis. Per: Danny Mccullough M.D. on 08/2019 Future Testing and Treatments Planned Possible further evaluation with MRI, per radiologist report PT-OP-C Subjective Start: 08/21/19 15:30 Freq: Status: Active Protocol: Document 03/17/20 10:43 DCW (Rec: 03/17/20 11:20 DCW [id number]) OP-PT Subjective Patient Comments Patient Comments Pt reports she went out and got two new pairs of shoes in hopes that she finds some with increased ankle support. PT-OP-F Manual Assessment Start: 08/21/19 15:30 Freq: Status: Active Protocol: Document 02/18/20 15:20 DCW (Rec: 02/18/20 16:02 DCW [id number]) Manual Assessments Soft Tissue Assessment Soft Tissue Mobility Assessment Tenderness to palpation 1/4 - Complaint of Pain: right hip adductors Tenderness to palpation 2/4 - Pain with wincing: L QL, Bilateral piriformis, bilateral psoas Moderate-severe tone along bilateral posterior, lateral, and anterior hips, L>R Joint Mobility Assessment Joint Mobility Assessment Hypomobility throughout lumbar spine. Hypermobility of left tibiotalar joint PT-OP-G Mobility & Gait Start: 11/12/19 17:28 Freq: Status: Active Protocol: Document 02/18/20 15:20 DCW (Rec: 02/18/20 16:02 DCW [id number]) OP Gait Assessment Gait Deviations General Gait Pattern Flexed Trunk,Lateral Trunk Lean Comments Gait Comments During gait, pt demonstrates increased lumbar rotation and a mild left lateral flexion. PT-OP-K Range of Motion Start: 08/21/19 15:30 Freq: Status: Active Protocol: Document 02/18/20 15:20 DCW (Rec: 02/18/20 16:02 DCW [id number]) Lumbar Spine Range of Motion Lumbar Spine Active Degrees Testing Position Standing Flexion 60 Extension 8 ROM Limitations Soft Tissue Tightness,Muscle Tone,Pain Comments Nearly entire extension ROM is from her thoracic spine, minimal motion in lumbar PT-OP-L Special Tests Start: 08/21/19 15:30 Freq: Status: Active Protocol: Document 02/18/20 15:20 DCW (Rec: 02/18/20 16:02 DCW [id number]) Special Tests Hip Special Tests RAMONA Test Results Positive ipsilateral left Other Special Tests Special Tests Pt exhibits significant accessory muscle breathing when distracted PT-OP-M Strength Start: 08/21/19 15:30 Freq: Status: Active Protocol: Document 02/18/20 15:20 DCW (Rec: 02/18/20 16:02 DCW [id number]) Hip Strength Hip Manual Muscle Testing Bilateral Abduction 4- Good- Adduction 4- Good- Knee Strength Knee Manual Muscle Testing Bilateral Comments All LE MMT 5/5 bilaterally except: Left knee flexion 4/5 PT-OP-Q Treatments Start: 08/21/19 15:30 Freq: Status: Active Protocol: Document 03/17/20 10:43 DCW (Rec: 03/17/20 11:20 DCW [id number]) Therapeutic Exercises Prone Exercises quad stretch Prone Exercise Name pillow underneath hips Side bilateral Reps/Minutes 20 secs hold x4 Gait Training Gait Activity 1 Description gait trial with various shoes Manual Therapy Treatment Soft Tissue Mobilization Piriformis Body Location B Piriformis Mobilization Type Sustained Pressure Intensity/Depth Deep QL Body Location L QL Mobilization Type Sustained Pressure,Trigger Point Release Intensity/Depth Deep Body Position Prone Psoas Body Location B Psoas Mobilization Type Sustained Pressure Intensity/Depth Deep Body Position Supine Manual Traction hip distraction Details L LE - Long [place] Body Position Supine Reps/Duration 10 secs hold x 5 Comments reports of symptoms relief. PT-OP-T Assessment and Plan Start: 08/21/19 15:30 Freq: Status: Active Protocol: Document 03/17/20 10:43 DCW (Rec: 03/17/20 11:20 DCW [id number]) Physical Therapy Assessment Goals Three Impairment Pt unable to go out dancing with her Shelter Goal (LTG) Pt to tolerate dancing for 45 minutes without increasing her pain LTG Duration 04/19/20 Two Impairment Pt unable to sit in her car longer than 30 minutes without moderate pain Waistline Joiner Goal (LTG) Pt to tolerate sitting in her car for 60 minutes with pain < 4/10 LTG Duration 04/19/20 One Impairment Pt does not have an appropriate HEP Short Term Goal (STG) Pt to be independent and compliant with an appropriate HEP STG Duration Met Assessment Summary Assessment Pt demonstrated improved flexibility today, able to tolerate piriformis stretch without complaints of hip pinching. Pt able to walk very well in her new shoes, proper heel-toe motion during stance phase, no ankle instability. Physical Therapy Plan Frequency and Duration Frequency of Treatment 2x/Week Duration of Treatment 12 weeks Plan of Care Start Date 02/18/20 Plan of Care End Date 05/12/20 Therapeutic Interventions Therapeutic Interventions Aquatic Therapy,Home Exercise Program,Joint Mobilizations, Manual Therapy,Patient/ Caregiver Education,Self-Care/ Home Management,Soft Tissue Mobilization,Therapeutic Activities,Therapeutic Exercises Modalities Cold Pack/Ice Massage,Electric Stimulation,Hot Packs, Traction- Mechanical, Ultrasound Next Visit Focus/Plan Next Note Type Treatment Note Next Visit Plan Assess response to last tx, supine and standing core march for alignment awareness with LS mobility and stability. Continue per PT POC: core stabalization, breathing techniques, and gait training.
--- NOTE | 2020-03-22 11:14 | PT.OTN ---
Current Diagnoses Osteoarthritis of hip, unspecified (03/22/20) Pain in right hip (03/22/20) Pain in left hip (03/22/20) Intervertebral disc disorders with myelopathy, lumbar region (03/22/20) Lumbago with sciatica, unspecified side (03/22/20) Physical Therapy Treatment Note PT-OP-A Visit Information Start: 08/21/19 15:30 Freq: Status: Active Protocol: Document 03/22/20 10:35 DCW (Rec: 03/22/20 11:14 DCW [id number]) Out-Patient Physical Therapy Visit Information Visit Information Visit Type Treatment Note Visit Start Time 10:35 Visit Stop Time 11:15 Total Visit Minutes 40 Visit Number 34 Number of INVISIBLE BRACES ORTHODONTIST Visits 0 Evaluation Information Evaluation Date 08/21/19 PT-OP-B Current Condition Start: 08/21/19 15:30 Freq: Status: Active Protocol: Document 08/21/19 15:30 DCW (Rec: 08/21/19 17:32 DCW [id number]) Current Condition History of Current Condition Onset Date Multi-year history Current Complaints low back and bilateral hip pain History of Current Condition Pt is a 58 year old female with a long history of low back and hip pain. Pt reports she has twice had a partial dislocation of her right hip, happening once in the 90s and once in the last decade. 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 Pt notes that this caused so much degeneration in my knees that when I was in my 30s, I couldn't go up and down stairs. Pt reports that since beginning Glucosamine and chondroitin, this has faded, and she is more mobile. She has recently been suffering an increase in bilateral posterior hip pain, especially with extended sitting, or trying to stand up after extended sitting. Pt also reports burning in the back of her hips, L>R. Pt reports that her PCP recently increased her Celebrex, which helped some, but just this past weekend, took a ferry to [place], and after sitting/ lying down for the trip, could barely walk off the ferry she was so stiff and sore. She is currently feeling improved, but everything just feels so tight. Prior Treatments and Tests Hip x-ray: IMPRESSION: Mild bilateral hip degeneration, probably age-appropriate. If the patient's pain or other symptoms persist, consider further evaluation with MRI. Per: Danny Mccullough M.D. on 08/2019 Lumbar x-ray: IMPRESSION: Multilevel moderate lumbar spondylosis and facet arthropathy. Levoscoliosis. Per: Danny Mccullough M.D. on 08/2019 Future Testing and Treatments Planned Possible further evaluation with MRI, per radiologist report PT-OP-C Subjective Start: 08/21/19 15:30 Freq: Status: Active Protocol: Document 03/22/20 10:35 DCW (Rec: 03/22/20 11:14 DCW [id number]) OP-PT Subjective Patient Comments Patient Comments Pt reports she has been stretching a lot, still pretty stiff first thing in the morning, but it was feeling better today, it didn't take quite as long to get it moving . PT-OP-F Manual Assessment Start: 08/21/19 15:30 Freq: Status: Active Protocol: Document 02/18/20 15:20 DCW (Rec: 02/18/20 16:02 DCW [id number]) Manual Assessments Soft Tissue Assessment Soft Tissue Mobility Assessment Tenderness to palpation 1/4 - Complaint of Pain: right hip adductors Tenderness to palpation 2/4 - Pain with wincing: L QL, Bilateral piriformis, bilateral psoas Moderate-severe tone along bilateral posterior, lateral, and anterior hips, L>R Joint Mobility Assessment Joint Mobility Assessment Hypomobility throughout lumbar spine. Hypermobility of left tibiotalar joint PT-OP-G Mobility & Gait Start: 11/12/19 17:28 Freq: Status: Active Protocol: Document 02/18/20 15:20 DCW (Rec: 02/18/20 16:02 DCW [id number]) OP Gait Assessment Gait Deviations General Gait Pattern Flexed Trunk,Lateral Trunk Lean Comments Gait Comments During gait, pt demonstrates increased lumbar rotation and a mild left lateral flexion. PT-OP-K Range of Motion Start: 08/21/19 15:30 Freq: Status: Active Protocol: Document 02/18/20 15:20 DCW (Rec: 02/18/20 16:02 DCW [id number]) Lumbar Spine Range of Motion Lumbar Spine Active Degrees Testing Position Standing Flexion 60 Extension 8 ROM Limitations Soft Tissue Tightness,Muscle Tone,Pain Comments Nearly entire extension ROM is from her thoracic spine, minimal motion in lumbar PT-OP-L Special Tests Start: 08/21/19 15:30 Freq: Status: Active Protocol: Document 02/18/20 15:20 DCW (Rec: 02/18/20 16:02 DCW [id number]) Special Tests Hip Special Tests RAMONA Test Results Positive ipsilateral left Other Special Tests Special Tests Pt exhibits significant accessory muscle breathing when distracted PT-OP-M Strength Start: 08/21/19 15:30 Freq: Status: Active Protocol: Document 02/18/20 15:20 DCW (Rec: 02/18/20 16:02 DCW [id number]) Hip Strength Hip Manual Muscle Testing Bilateral Abduction 4- Good- Adduction 4- Good- Knee Strength Knee Manual Muscle Testing Bilateral Comments All LE MMT 5/5 bilaterally except: Left knee flexion 4/5 PT-OP-Q Treatments Start: 08/21/19 15:30 Freq: Status: Active Protocol: Document 03/22/20 10:35 DCW (Rec: 03/22/20 11:14 DCW [id number]) Gym Equipment Shuttle Balance Red Details Staggered Weight shift Therapeutic Ball Resisted Rotation Exercise Details Resisted trunk rotation Ball Size/Color Green - 65 cm Lv 3 T-band Body Position Sitting Therapeutic Exercises Supine Exercises piriformis Side bilateral Reps/Minutes 20 secs hold x4 HS, adductor, ITb stretch Supine Exercise Name HS stretch, Adductor stretch Comments cued PPT awareness Bryce stretch Supine Exercise Name PT assisted Side bilateral Reps/Minutes 20 secs hold x4 Prone Exercises quad stretch Prone Exercise Name pillow underneath hips Side bilateral Reps/Minutes 20 secs hold x4 Manual Therapy Treatment Soft Tissue Mobilization Piriformis Body Location B Piriformis Mobilization Type Sustained Pressure Intensity/Depth Deep QL Body Location L QL Mobilization Type Sustained Pressure,Trigger Point Release Intensity/Depth Deep Body Position Prone Psoas Body Location B Psoas Mobilization Type Sustained Pressure Intensity/Depth Deep Body Position Supine Manual Traction hip distraction Details L LE - Long [place] Body Position Supine Reps/Duration 10 secs hold x 5 Comments reports of symptoms relief. PT-OP-T Assessment and Plan Start: 08/21/19 15:30 Freq: Status: Active Protocol: Document 03/22/20 10:35 DCW (Rec: 03/22/20 11:14 DCW [id number]) Physical Therapy Assessment Goals Three Impairment Pt unable to go out dancing with her Microbiological Analyst Goal (LTG) Pt to tolerate dancing for 45 minutes without increasing her pain LTG Duration 04/19/20 Two Impairment Pt unable to sit in her car longer than 30 minutes without moderate pain Microbiological Analyst Goal (LTG) Pt to tolerate sitting in her car for 60 minutes with pain < 4/10 LTG Duration 04/19/20 One Impairment Pt does not have an appropriate HEP Short Term Goal (STG) Pt to be independent and compliant with an appropriate HEP STG Duration Met Assessment Summary Assessment Pt ambulating better, decreased instability and improved spinal alignment. Pt continues to display hip flexor tightness, resulting in lower cross syndrome positioning. Physical Therapy Plan Frequency and Duration Frequency of Treatment 2x/Week Duration of Treatment 12 weeks Plan of Care Start Date 02/18/20 Plan of Care End Date 05/12/20 Therapeutic Interventions Therapeutic Interventions Aquatic Therapy,Home Exercise Program,Joint Mobilizations, Manual Therapy,Patient/ Caregiver Education,Self-Care/ Home Management,Soft Tissue Mobilization,Therapeutic Activities,Therapeutic Exercises Modalities Cold Pack/Ice Massage,Electric Stimulation,Hot Packs, Traction- Mechanical, Ultrasound Next Visit Focus/Plan Next Note Type Treatment Note Next Visit Plan Assess response to last tx, supine and standing core march for alignment awareness with LS mobility and stability. Continue per PT POC: core stabalization, breathing techniques, and gait training.
--- NOTE | 2020-03-24 11:17 | PT.OTN ---
Current Diagnoses Osteoarthritis of hip, unspecified (03/24/20) Pain in right hip (03/24/20) Pain in left hip (03/24/20) Intervertebral disc disorders with myelopathy, lumbar region (03/24/20) Lumbago with sciatica, unspecified side (03/24/20) Physical Therapy Treatment Note PT-OP-A Visit Information Start: 08/21/19 15:30 Freq: Status: Active Protocol: Document 03/24/20 10:40 DCW (Rec: 03/24/20 11:17 DCW [id number]) Out-Patient Physical Therapy Visit Information Visit Information Visit Type Treatment Note Visit Note 10 min late Visit Start Time 10:40 Visit Stop Time 11:15 Total Visit Minutes 35 Visit Number 35 Number of CONDUIT REAMER OPERATOR Visits 0 Evaluation Information Evaluation Date 08/21/19 PT-OP-B Current Condition Start: 08/21/19 15:30 Freq: Status: Active Protocol: Document 08/21/19 15:30 DCW (Rec: 08/21/19 17:32 DCW [id number]) Current Condition History of Current Condition Onset Date Multi-year history Current Complaints low back and bilateral hip pain History of Current Condition Pt is a 58 year old female with a long history of low back and hip pain. Pt reports she has twice had a partial dislocation of her right hip, happening once in the 90s and once in the last decade. 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 Pt notes that this caused so much degeneration in my knees that when I was in my 30s, I couldn't go up and down stairs. Pt reports that since beginning Glucosamine and chondroitin, this has faded, and she is more mobile. She has recently been suffering an increase in bilateral posterior hip pain, especially with extended sitting, or trying to stand up after extended sitting. Pt also reports burning in the back of her hips, L>R. Pt reports that her PCP recently increased her Celebrex, which helped some, but just this past weekend, took a ferry to [place], and after sitting/ lying down for the trip, could barely walk off the ferry she was so stiff and sore. She is currently feeling improved, but everything just feels so tight. Prior Treatments and Tests Hip x-ray: IMPRESSION: Mild bilateral hip degeneration, probably age-appropriate. If the patient's pain or other symptoms persist, consider further evaluation with MRI. Per: Danny Mccullough M.D. on 08/2019 Lumbar x-ray: IMPRESSION: Multilevel moderate lumbar spondylosis and facet arthropathy. Levoscoliosis. Per: Danny Mccullough M.D. on 08/2019 Future Testing and Treatments Planned Possible further evaluation with MRI, per radiologist report PT-OP-C Subjective Start: 08/21/19 15:30 Freq: Status: Active Protocol: Document 03/24/20 10:40 DCW (Rec: 03/24/20 11:17 DCW [id number]) OP-PT Subjective Patient Comments Patient Comments Pt reports that she is just so stiff getting out of bed in the morning, I really need direction with what I can do to loosen up a little quicker. PT-OP-F Manual Assessment Start: 08/21/19 15:30 Freq: Status: Active Protocol: Document 02/18/20 15:20 DCW (Rec: 02/18/20 16:02 DCW [id number]) Manual Assessments Soft Tissue Assessment Soft Tissue Mobility Assessment Tenderness to palpation 1/4 - Complaint of Pain: right hip adductors Tenderness to palpation 2/4 - Pain with wincing: L QL, Bilateral piriformis, bilateral psoas Moderate-severe tone along bilateral posterior, lateral, and anterior hips, L>R Joint Mobility Assessment Joint Mobility Assessment Hypomobility throughout lumbar spine. Hypermobility of left tibiotalar joint PT-OP-G Mobility & Gait Start: 11/12/19 17:28 Freq: Status: Active Protocol: Document 02/18/20 15:20 DCW (Rec: 02/18/20 16:02 DCW [id number]) OP Gait Assessment Gait Deviations General Gait Pattern Flexed Trunk,Lateral Trunk Lean Comments Gait Comments During gait, pt demonstrates increased lumbar rotation and a mild left lateral flexion. PT-OP-K Range of Motion Start: 08/21/19 15:30 Freq: Status: Active Protocol: Document 02/18/20 15:20 DCW (Rec: 02/18/20 16:02 DCW [id number]) Lumbar Spine Range of Motion Lumbar Spine Active Degrees Testing Position Standing Flexion 60 Extension 8 ROM Limitations Soft Tissue Tightness,Muscle Tone,Pain Comments Nearly entire extension ROM is from her thoracic spine, minimal motion in lumbar PT-OP-L Special Tests Start: 08/21/19 15:30 Freq: Status: Active Protocol: Document 02/18/20 15:20 DCW (Rec: 02/18/20 16:02 DCW [id number]) Special Tests Hip Special Tests RAMONA Test Results Positive ipsilateral left Other Special Tests Special Tests Pt exhibits significant accessory muscle breathing when distracted PT-OP-M Strength Start: 08/21/19 15:30 Freq: Status: Active Protocol: Document 02/18/20 15:20 DCW (Rec: 02/18/20 16:02 DCW [id number]) Hip Strength Hip Manual Muscle Testing Bilateral Abduction 4- Good- Adduction 4- Good- Knee Strength Knee Manual Muscle Testing Bilateral Comments All LE MMT 5/5 bilaterally except: Left knee flexion 4/5 PT-OP-Q Treatments Start: 08/21/19 15:30 Freq: Status: Active Protocol: Document 03/24/20 10:40 DCW (Rec: 03/24/20 11:17 DCW [id number]) Therapeutic Exercises Supine Exercises piriformis Side bilateral Reps/Minutes 20 secs hold x4 Bryce stretch Supine Exercise Name PT assisted Side bilateral Reps/Minutes 20 secs hold x4 1 Supine Exercise Name Low trunk rotation in hooklying Sitting Exercises 1 Sitting Exercise Name [place] Manual Therapy Treatment Soft Tissue Mobilization Piriformis Body Location B Piriformis Mobilization Type Sustained Pressure Intensity/Depth Deep QL Body Location L QL Mobilization Type Sustained Pressure,Trigger Point Release Intensity/Depth Deep Body Position Prone Psoas Body Location B Psoas Mobilization Type Sustained Pressure Intensity/Depth Deep Body Position Supine PT-OP-T Assessment and Plan Start: 08/21/19 15:30 Freq: Status: Active Protocol: Document 03/24/20 10:40 DCW (Rec: 03/24/20 11:17 DCW [id number]) Physical Therapy Assessment Goals Three Impairment Pt unable to go out dancing with her [facility] Goal (LTG) Pt to tolerate dancing for 45 minutes without increasing her pain LTG Duration 04/19/20 Two Impairment Pt unable to sit in her car longer than 30 minutes without moderate pain Escalator Installer Goal (LTG) Pt to tolerate sitting in her car for 60 minutes with pain < 4/10 LTG Duration 04/19/20 One Impairment Pt does not have an appropriate HEP Short Term Goal (STG) Pt to be independent and compliant with an appropriate HEP STG Duration Met Assessment Summary Assessment Reviewed HEP to help pt loosen up when first waking in the morning, pt comfortable with plan. Physical Therapy Plan Frequency and Duration Frequency of Treatment 2x/Week Duration of Treatment 12 weeks Plan of Care Start Date 02/18/20 Plan of Care End Date 05/12/20 Therapeutic Interventions Therapeutic Interventions Aquatic Therapy,Home Exercise Program,Joint Mobilizations, Manual Therapy,Patient/ Caregiver Education,Self-Care/ Home Management,Soft Tissue Mobilization,Therapeutic Activities,Therapeutic Exercises Modalities Cold Pack/Ice Massage,Electric Stimulation,Hot Packs, Traction- Mechanical, Ultrasound Next Visit Focus/Plan Next Note Type Treatment Note Next Visit Plan Assess response to last tx, supine and standing core march for alignment awareness with LS mobility and stability. Continue per PT POC: core stabalization, breathing techniques, and gait training.
--- NOTE | 2020-04-08 16:00 | PT.OTN ---
Current Diagnoses Osteoarthritis of hip, unspecified (04/08/20) Pain in right hip (04/08/20) Pain in left hip (04/08/20) Intervertebral disc disorders with myelopathy, lumbar region (04/08/20) Lumbago with sciatica, unspecified side (04/08/20) Physical Therapy Treatment Note PT-OP-A Visit Information Start: 08/21/19 15:30 Freq: Status: Active Protocol: Document 04/08/20 15:15 DCW (Rec: 04/08/20 16:00 DCW [id number]) Out-Patient Physical Therapy Visit Information Visit Information Visit Type Treatment Note Visit Start Time 15:15 Visit Stop Time 16:00 Total Visit Minutes 45 Visit Number 36 Number of INTERNATIONAL ACCOUNT MANAGER Visits 0 Evaluation Information Evaluation Date 08/21/19 PT-OP-B Current Condition Start: 08/21/19 15:30 Freq: Status: Active Protocol: Document 08/21/19 15:30 DCW (Rec: 08/21/19 17:32 DCW [id number]) Current Condition History of Current Condition Onset Date Multi-year history Current Complaints low back and bilateral hip pain History of Current Condition Pt is a 58 year old female with a long history of low back and hip pain. Pt reports she has twice had a partial dislocation of her right hip, happening once in the 90s and once in the last decade. 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 Pt notes that this caused so much degeneration in my knees that when I was in my 30s, I couldn't go up and down stairs. Pt reports that since beginning Glucosamine and chondroitin, this has faded, and she is more mobile. She has recently been suffering an increase in bilateral posterior hip pain, especially with extended sitting, or trying to stand up after extended sitting. Pt also reports burning in the back of her hips, L>R. Pt reports that her PCP recently increased her Celebrex, which helped some, but just this past weekend, took a ferry to [place], and after sitting/ lying down for the trip, could barely walk off the ferry she was so stiff and sore. She is currently feeling improved, but everything just feels so tight. Prior Treatments and Tests Hip x-ray: IMPRESSION: Mild bilateral hip degeneration, probably age-appropriate. If the patient's pain or other symptoms persist, consider further evaluation with MRI. Per: Danny Mccullough M.D. on 08/2019 Lumbar x-ray: IMPRESSION: Multilevel moderate lumbar spondylosis and facet arthropathy. Levoscoliosis. Per: Danny Mccullough M.D. on 08/2019 Future Testing and Treatments Planned Possible further evaluation with MRI, per radiologist report PT-OP-C Subjective Start: 08/21/19 15:30 Freq: Status: Active Protocol: Document 04/08/20 15:15 DCW (Rec: 04/08/20 16:00 DCW [id number]) OP-PT Subjective Patient Comments Patient Comments Pt reports she still gets pretty stiff, especially in the morning, but by evening she has loosened up quite a bit. PT-OP-F Manual Assessment Start: 08/21/19 15:30 Freq: Status: Active Protocol: Document 02/18/20 15:20 DCW (Rec: 02/18/20 16:02 DCW [id number]) Manual Assessments Soft Tissue Assessment Soft Tissue Mobility Assessment Tenderness to palpation 1/4 - Complaint of Pain: right hip adductors Tenderness to palpation 2/4 - Pain with wincing: L QL, Bilateral piriformis, bilateral psoas Moderate-severe tone along bilateral posterior, lateral, and anterior hips, L>R Joint Mobility Assessment Joint Mobility Assessment Hypomobility throughout lumbar spine. Hypermobility of left tibiotalar joint PT-OP-G Mobility & Gait Start: 11/12/19 17:28 Freq: Status: Active Protocol: Document 02/18/20 15:20 DCW (Rec: 02/18/20 16:02 DCW [id number]) OP Gait Assessment Gait Deviations General Gait Pattern Flexed Trunk,Lateral Trunk Lean Comments Gait Comments During gait, pt demonstrates increased lumbar rotation and a mild left lateral flexion. PT-OP-K Range of Motion Start: 08/21/19 15:30 Freq: Status: Active Protocol: Document 02/18/20 15:20 DCW (Rec: 02/18/20 16:02 DCW [id number]) Lumbar Spine Range of Motion Lumbar Spine Active Degrees Testing Position Standing Flexion 60 Extension 8 ROM Limitations Soft Tissue Tightness,Muscle Tone,Pain Comments Nearly entire extension ROM is from her thoracic spine, minimal motion in lumbar PT-OP-L Special Tests Start: 08/21/19 15:30 Freq: Status: Active Protocol: Document 02/18/20 15:20 DCW (Rec: 02/18/20 16:02 DCW [id number]) Special Tests Hip Special Tests RAMONA Test Results Positive ipsilateral left Other Special Tests Special Tests Pt exhibits significant accessory muscle breathing when distracted PT-OP-M Strength Start: 08/21/19 15:30 Freq: Status: Active Protocol: Document 02/18/20 15:20 DCW (Rec: 02/18/20 16:02 DCW [id number]) Hip Strength Hip Manual Muscle Testing Bilateral Abduction 4- Good- Adduction 4- Good- Knee Strength Knee Manual Muscle Testing Bilateral Comments All LE MMT 5/5 bilaterally except: Left knee flexion 4/5 PT-OP-Q Treatments Start: 08/21/19 15:30 Freq: Status: Active Protocol: Document 04/08/20 15:15 DCW (Rec: 04/08/20 16:00 DCW [id number]) Gym Equipment Shuttle Balance Red Details Staggered Weight shift, Lateral weight shift Therapeutic Ball Bridging Exercise Details Bridging Ball Size/Color Red - 55 cm Body Position Supine Bridging /c HS curl Exercise Details Bridging /c HS curl Ball Size/Color Red - 55 cm Body Position Supine Resisted Rotation Exercise Details Resisted trunk rotation Ball Size/Color Green - 65 cm Lv 3 T-band Body Position Sitting Therapeutic Exercises Supine Exercises HS, adductor, ITb stretch Supine Exercise Name HS stretch, Adductor stretch Comments cued PPT awareness Manual Therapy Treatment Soft Tissue Mobilization Piriformis Body Location B Piriformis Mobilization Type Sustained Pressure Intensity/Depth Deep QL Body Location L QL Mobilization Type Sustained Pressure,Trigger Point Release Intensity/Depth Deep Body Position Prone Psoas Body Location B Psoas Mobilization Type Sustained Pressure Intensity/Depth Deep Body Position Supine Manual Traction hip distraction Details L LE - Long [place] Body Position Supine Reps/Duration 10 secs hold x 5 Comments reports of symptoms relief. PT-OP-T Assessment and Plan Start: 08/21/19 15:30 Freq: Status: Active Protocol: Document 04/08/20 15:15 DCW (Rec: 04/08/20 16:00 DCW [id number]) Physical Therapy Assessment Goals Three Impairment Pt unable to go out dancing with her Skilled Nursing Goal (LTG) Pt to tolerate dancing for 45 minutes without increasing her pain LTG Duration 04/19/20 Two Impairment Pt unable to sit in her car longer than 30 minutes without moderate pain Manager Wind Goal (LTG) Pt to tolerate sitting in her car for 60 minutes with pain < 4/10 LTG Duration 04/19/20 One Impairment Pt does not have an appropriate HEP Short Term Goal (STG) Pt to be independent and compliant with an appropriate HEP STG Duration Met Assessment Summary Assessment Pt tolerated treatment well today, doing well with improved shoes helping to stabilize ankles. Physical Therapy Plan Frequency and Duration Frequency of Treatment 2x/Week Duration of Treatment 12 weeks Plan of Care Start Date 02/18/20 Plan of Care End Date 05/12/20 Therapeutic Interventions Therapeutic Interventions Aquatic Therapy,Home Exercise Program,Joint Mobilizations, Manual Therapy,Patient/ Caregiver Education,Self-Care/ Home Management,Soft Tissue Mobilization,Therapeutic Activities,Therapeutic Exercises Modalities Cold Pack/Ice Massage,Electric Stimulation,Hot Packs, Traction- Mechanical, Ultrasound Next Visit Focus/Plan Next Note Type Treatment Note Next Visit Plan Assess response to last tx, supine and standing core march for alignment awareness with LS mobility and stability. Continue per PT POC: core stabalization, breathing techniques, and gait training.
--- NOTE | 2020-04-12 09:50 | PT.OTN ---
Current Diagnoses Osteoarthritis of hip, unspecified (04/12/20) Pain in right hip (04/12/20) Pain in left hip (04/12/20) Intervertebral disc disorders with myelopathy, lumbar region (04/12/20) Lumbago with sciatica, unspecified side (04/12/20) Physical Therapy Treatment Note PT-OP-A Visit Information Start: 08/21/19 15:30 Freq: Status: Active Protocol: Document 04/12/20 09:05 TP (Rec: 04/12/20 10:00 TP [id number]) Out-Patient Physical Therapy Visit Information Visit Information Visit Type Treatment Note Visit Note Student GOPI Zhu supervised by GOPI Barajas. Visit Start Time 09:05 Visit Stop Time 09:50 Total Visit Minutes 45 Visit Number 37 Number of ACCOUNTING CLERK Visits 1 PT-OP-B Current Condition Start: 08/21/19 15:30 Freq: Status: Active Protocol: Document 08/21/19 15:30 DCW (Rec: 08/21/19 17:32 DCW [id number]) Current Condition History of Current Condition Onset Date Multi-year history Current Complaints low back and bilateral hip pain History of Current Condition Pt is a 58 year old female with a long history of low back and hip pain. Pt reports she has twice had a partial dislocation of her right hip, happening once in the 90s and once in the last decade. 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 Pt notes that this caused so much degeneration in my knees that when I was in my 30s, I couldn't go up and down stairs. Pt reports that since beginning Glucosamine and chondroitin, this has faded, and she is more mobile. She has recently been suffering an increase in bilateral posterior hip pain, especially with extended sitting, or trying to stand up after extended sitting. Pt also reports burning in the back of her hips, L>R. Pt reports that her PCP recently increased her Celebrex, which helped some, but just this past weekend, took a ferry to [place], and after sitting/ lying down for the trip, could barely walk off the ferry she was so stiff and sore. She is currently feeling improved, but everything just feels so tight. Prior Treatments and Tests Hip x-ray: IMPRESSION: Mild bilateral hip degeneration, probably age-appropriate. If the patient's pain or other symptoms persist, consider further evaluation with MRI. Per: Danny Mccullough M.D. on 08/2019 Lumbar x-ray: IMPRESSION: Multilevel moderate lumbar spondylosis and facet arthropathy. Levoscoliosis. Per: Danny Mccullough M.D. on 08/2019 Future Testing and Treatments Planned Possible further evaluation with MRI, per radiologist report PT-OP-C Subjective Start: 08/21/19 15:30 Freq: Status: Active Protocol: Document 04/12/20 09:05 TP (Rec: 04/12/20 10:00 TP [id number]) OP-PT Subjective Patient Comments Patient Comments Pt reports some stiffness and tightness this morning. Seeing some strength and flexibility improvements since setbacks during . Is not having incontinence problems since beginning pelvic floor exercises. Singing voice has returned since practicing diaphragmatic breathing. Supine HS curls on ball is challenging with no concerns. Doing aerobic spin and elliptical at home. Would like to assess elliptical next visit. PT-OP-F Manual Assessment Start: 08/21/19 15:30 Freq: Status: Active Protocol: Document 02/18/20 15:20 DCW (Rec: 02/18/20 16:02 DCW [id number]) Manual Assessments Soft Tissue Assessment Soft Tissue Mobility Assessment Tenderness to palpation 1/4 - Complaint of Pain: right hip adductors Tenderness to palpation 2/4 - Pain with wincing: L QL, Bilateral piriformis, bilateral psoas Moderate-severe tone along bilateral posterior, lateral, and anterior hips, L>R Joint Mobility Assessment Joint Mobility Assessment Hypomobility throughout lumbar spine. Hypermobility of left tibiotalar joint PT-OP-G Mobility & Gait Start: 11/12/19 17:28 Freq: Status: Active Protocol: Document 02/18/20 15:20 DCW (Rec: 02/18/20 16:02 DCW [id number]) OP Gait Assessment Gait Deviations General Gait Pattern Flexed Trunk,Lateral Trunk Lean Comments Gait Comments During gait, pt demonstrates increased lumbar rotation and a mild left lateral flexion. PT-OP-K Range of Motion Start: 08/21/19 15:30 Freq: Status: Active Protocol: Document 06/03/20 15:20 DCW (Rec: 02/18/20 16:02 DCW [id number]) Lumbar Spine Range of Motion Lumbar Spine Active Degrees Testing Position Standing Flexion 60 Extension 8 ROM Limitations Soft Tissue Tightness,Muscle Tone,Pain Comments Nearly entire extension ROM is from her thoracic spine, minimal motion in lumbar PT-OP-L Special Tests Start: 08/21/19 15:30 Freq: Status: Active Protocol: Document 02/18/20 15:20 DCW (Rec: 02/18/20 16:02 DCW [id number]) Special Tests Hip Special Tests RAMONA Test Results Positive ipsilateral left Other Special Tests Special Tests Pt exhibits significant accessory muscle breathing when distracted PT-OP-M Strength Start: 08/21/19 15:30 Freq: Status: Active Protocol: Document 02/18/20 15:20 DCW (Rec: 02/18/20 16:02 DCW [id number]) Hip Strength Hip Manual Muscle Testing Bilateral Abduction 4- Good- Adduction 4- Good- Knee Strength Knee Manual Muscle Testing Bilateral Comments All LE MMT 5/5 bilaterally except: Left knee flexion 4/5 PT-OP-Q Treatments Start: 08/21/19 15:30 Freq: Status: Active Protocol: Document 04/12/20 09:05 TP (Rec: 04/12/20 10:00 TP [id number]) Cardio Equipment Bicycle (Upright) Duration (Minutes) 8 Resistance 4-8 Seat Position 4 Therapeutic Exercises Supine Exercises Pelvic floor long holds Supine Exercise Name Pelvic floor long holds Reps/Minutes hold x 10 seconds Comments focus on the relaxation following a contraction diaphramatic breathing with activity Supine Exercise Name supine diaphragmatic breathing Comments focus on the pelvic alignment and floor relaxation with inhalation bridge hip abd Supine Exercise Name core bridge Resistance AROM Reps/Minutes 3 breath holdx 10 Comments cued neutral pelvis and not over facilitation of PF engagement pelvic tilt/ neutral pelvis Side bilateral Comments focus on PPT without lumbar extension trans ab Supine Exercise Name trans ab march Reps/Minutes x10 Comments slow activation concentric/ eccentric facilitation Manual Therapy Treatment Soft Tissue Mobilization Piriformis Body Location L Mobilization Type Sustained Pressure Intensity/Depth Deep Body Position Prone Comments Pin PROM hip ER/IR QL Body Location L QL Mobilization Type Sustained Pressure,Trigger Point Release Intensity/Depth Deep Body Position Prone PT-OP-T Assessment and Plan Start: 08/21/19 15:30 Freq: Status: Active Protocol: Document 04/12/20 09:05 TP (Rec: 04/12/20 10:00 TP [id number]) Physical Therapy Assessment Goals Three Impairment Pt unable to go out dancing with her Felt Finisher Goal (LTG) Pt to tolerate dancing for 45 minutes without increasing her pain LTG Duration 04/19/20 Two Impairment Pt unable to sit in her car longer than 30 minutes without moderate pain Felt Finisher Goal (LTG) Pt to tolerate sitting in her car for 60 minutes with pain < 4/10 LTG Duration 04/19/20 One Impairment Pt does not have an appropriate HEP Short Term Goal (STG) Pt to be independent and compliant with an appropriate HEP STG Duration Met Assessment Summary Assessment Pt displays overactivation of internal/external obliques and rectus abdominus. Pt education for facilitation of transversus abdominis. Pt demonstrated ability to feel TA activation, and sustain activation during diaphragmatic breathing and activity (supine marches). Continue to educate pt to facilitate TA to improve hip stability. Physical Therapy Plan Frequency and Duration Frequency of Treatment 2x/Week Duration of Treatment 12 weeks Plan of Care Start Date 02/18/20 Plan of Care End Date 05/12/20 Therapeutic Interventions Therapeutic Interventions Aquatic Therapy,Home Exercise Program,Joint Mobilizations, Manual Therapy,Patient/ Caregiver Education,Self-Care/ Home Management,Soft Tissue Mobilization,Therapeutic Activities,Therapeutic Exercises Modalities Cold Pack/Ice Massage,Electric Stimulation,Hot Packs, Traction- Mechanical, Ultrasound Next Visit Focus/Plan Next Note Type Treatment Note Next Visit Plan Assess response to last tx, supine pelvic alignment awareness for LS stability to allow mobility. Review standing QL stretch, add L foot propped on stool during stretch. Assess pt on elliptical.
--- NOTE | 2020-04-15 16:04 | PT.OTN ---
Current Diagnoses Osteoarthritis of hip, unspecified (04/15/20) Pain in right hip (04/15/20) Pain in left hip (04/15/20) Intervertebral disc disorders with myelopathy, lumbar region (04/15/20) Lumbago with sciatica, unspecified side (04/15/20) Physical Therapy Treatment Note PT-OP-A Visit Information Start: 08/21/19 15:30 Freq: Status: Active Protocol: Document 04/15/20 15:15 DCW (Rec: 04/15/20 16:04 DCW [id number]) Out-Patient Physical Therapy Visit Information Visit Information Visit Type Treatment Note Visit Start Time 15:15 Visit Stop Time 16:00 Total Visit Minutes 45 Visit Number 38 Number of PANTOGRAPH WATCHER Visits 0 Evaluation Information Evaluation Date 08/21/19 PT-OP-B Current Condition Start: 08/21/19 15:30 Freq: Status: Active Protocol: Document 08/21/19 15:30 DCW (Rec: 08/21/19 17:32 DCW [id number]) Current Condition History of Current Condition Onset Date Multi-year history Current Complaints low back and bilateral hip pain History of Current Condition Pt is a 58 year old female with a long history of low back and hip pain. Pt reports she has twice had a partial dislocation of her right hip, happening once in the 90s and once in the last decade. 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 Pt notes that this caused so much degeneration in my knees that when I was in my 30s, I couldn't go up and down stairs. Pt reports that since beginning Glucosamine and chondroitin, this has faded, and she is more mobile. She has recently been suffering an increase in bilateral posterior hip pain, especially with extended sitting, or trying to stand up after extended sitting. Pt also reports burning in the back of her hips, L>R. Pt reports that her PCP recently increased her Celebrex, which helped some, but just this past weekend, took a ferry to [place], and after sitting/ lying down for the trip, could barely walk off the ferry she was so stiff and sore. She is currently feeling improved, but everything just feels so tight. Prior Treatments and Tests Hip x-ray: IMPRESSION: Mild bilateral hip degeneration, probably age-appropriate. If the patient's pain or other symptoms persist, consider further evaluation with MRI. Per: Danny Mccullough M.D. on 08/2019 Lumbar x-ray: IMPRESSION: Multilevel moderate lumbar spondylosis and facet arthropathy. Levoscoliosis. Per: Danny Mccullough M.D. on 08/2019 Future Testing and Treatments Planned Possible further evaluation with MRI, per radiologist report PT-OP-C Subjective Start: 08/21/19 15:30 Freq: Status: Active Protocol: Document 04/15/20 15:15 DCW (Rec: 04/15/20 16:04 DCW [id number]) OP-PT Subjective Patient Comments Patient Comments Pt reports she is feeling pretty good, notes she has been sleeping better. PT-OP-F Manual Assessment Start: 08/21/19 15:30 Freq: Status: Active Protocol: Document 02/18/20 15:20 DCW (Rec: 02/18/20 16:02 DCW [id number]) Manual Assessments Soft Tissue Assessment Soft Tissue Mobility Assessment Tenderness to palpation 1/4 - Complaint of Pain: right hip adductors Tenderness to palpation 2/4 - Pain with wincing: L QL, Bilateral piriformis, bilateral psoas Moderate-severe tone along bilateral posterior, lateral, and anterior hips, L>R Joint Mobility Assessment Joint Mobility Assessment Hypomobility throughout lumbar spine. Hypermobility of left tibiotalar joint PT-OP-G Mobility & Gait Start: 11/12/19 17:28 Freq: Status: Active Protocol: Document 02/18/20 15:20 DCW (Rec: 02/18/20 16:02 DCW [id number]) OP Gait Assessment Gait Deviations General Gait Pattern Flexed Trunk,Lateral Trunk Lean Comments Gait Comments During gait, pt demonstrates increased lumbar rotation and a mild left lateral flexion. PT-OP-K Range of Motion Start: 08/21/19 15:30 Freq: Status: Active Protocol: Document 02/18/20 15:20 DCW (Rec: 02/18/20 16:02 DCW [id number]) Lumbar Spine Range of Motion Lumbar Spine Active Degrees Testing Position Standing Flexion 60 Extension 8 ROM Limitations Soft Tissue Tightness,Muscle Tone,Pain Comments Nearly entire extension ROM is from her thoracic spine, minimal motion in lumbar PT-OP-L Special Tests Start: 08/21/19 15:30 Freq: Status: Active Protocol: Document 02/18/20 15:20 DCW (Rec: 02/18/20 16:02 DCW [id number]) Special Tests Hip Special Tests RAMONA Test Results Positive ipsilateral left Other Special Tests Special Tests Pt exhibits significant accessory muscle breathing when distracted PT-OP-M Strength Start: 08/21/19 15:30 Freq: Status: Active Protocol: Document 02/18/20 15:20 DCW (Rec: 02/18/20 16:02 DCW [id number]) Hip Strength Hip Manual Muscle Testing Bilateral Abduction 4- Good- Adduction 4- Good- Knee Strength Knee Manual Muscle Testing Bilateral Comments All LE MMT 5/5 bilaterally except: Left knee flexion 4/5 PT-OP-Q Treatments Start: 08/21/19 15:30 Freq: Status: Active Protocol: Document 04/15/20 15:15 DCW (Rec: 04/15/20 16:04 DCW [id number]) Cardio Equipment Bicycle (Upright) Duration (Minutes) 6 Resistance 8 Seat Position 5 Gym Equipment Therapeutic Ball Pelvic circles Exercise Details Pelvic circles, pelvic tilts Ball Size/Color Green - 65 cm Body Position Sitting Resisted Rotation Exercise Details Resisted trunk rotation Ball Size/Color Green - 65 cm Lv 3 T-band Body Position Sitting Manual Therapy Treatment Soft Tissue Mobilization Piriformis Body Location B Piriformis Mobilization Type Sustained Pressure Intensity/Depth Deep QL Body Location L QL Mobilization Type Sustained Pressure,Trigger Point Release Intensity/Depth Deep Body Position Prone Psoas Body Location B Psoas Mobilization Type Sustained Pressure Intensity/Depth Deep Body Position Supine Manual Traction hip distraction Details L LE - Long [place] Body Position Supine Reps/Duration 10 secs hold x 5 Comments reports of symptoms relief. PT-OP-T Assessment and Plan Start: 08/21/19 15:30 Freq: Status: Active Protocol: Document 04/15/20 15:15 DCW (Rec: 04/15/20 16:04 DCW [id number]) Physical Therapy Assessment Goals Three Impairment Pt unable to go out dancing with her Prison Goal (LTG) Pt to tolerate dancing for 45 minutes without increasing her pain LTG Duration 04/19/20 Two Impairment Pt unable to sit in her car longer than 30 minutes without moderate pain Prison Goal (LTG) Pt to tolerate sitting in her car for 60 minutes with pain < 4/10 LTG Duration 04/19/20 One Impairment Pt does not have an appropriate HEP Short Term Goal (STG) Pt to be independent and compliant with an appropriate HEP STG Duration Met Assessment Summary Assessment Pt tolerated additional exercises well, less tone throughout posterior hip musculature today. Pt still needs occasional cueing with TrA initiation. Physical Therapy Plan Frequency and Duration Frequency of Treatment 2x/Week Duration of Treatment 12 weeks Plan of Care Start Date 02/18/20 Plan of Care End Date 05/12/20 Therapeutic Interventions Therapeutic Interventions Aquatic Therapy,Home Exercise Program,Joint Mobilizations, Manual Therapy,Patient/ Caregiver Education,Self-Care/ Home Management,Soft Tissue Mobilization,Therapeutic Activities,Therapeutic Exercises Modalities Cold Pack/Ice Massage,Electric Stimulation,Hot Packs, Traction- Mechanical, Ultrasound Next Visit Focus/Plan Next Note Type Treatment Note Next Visit Plan Assess response to last tx, supine pelvic alignment awareness for LS stability to allow mobility. Review standing QL stretch, add L foot propped on stool during stretch. Assess pt on elliptical.
--- NOTE | 2020-04-19 11:17 | PT.OTN ---
Current Diagnoses Osteoarthritis of hip, unspecified (04/19/20) Pain in right hip (04/19/20) Pain in left hip (04/19/20) Intervertebral disc disorders with myelopathy, lumbar region (04/19/20) Lumbago with sciatica, unspecified side (04/19/20) Physical Therapy Treatment Note PT-OP-A Visit Information Start: 08/21/19 15:30 Freq: Status: Active Protocol: Document 04/19/20 10:35 DCW (Rec: 04/19/20 11:17 DCW [id number]) Out-Patient Physical Therapy Visit Information Visit Information Visit Type Treatment Note Visit Note 5 min late Visit Start Time 10:35 Visit Stop Time 11:15 Total Visit Minutes 40 Visit Number 39 Number of COMPOSITION FLOOR SETTER Visits 0 Evaluation Information Evaluation Date 08/21/19 PT-OP-B Current Condition Start: 08/21/19 15:30 Freq: Status: Active Protocol: Document 08/21/19 15:30 DCW (Rec: 08/21/19 17:32 DCW [id number]) Current Condition History of Current Condition Onset Date Multi-year history Current Complaints low back and bilateral hip pain History of Current Condition Pt is a 58 year old female with a long history of low back and hip pain. Pt reports she has twice had a partial dislocation of her right hip, happening once in the 90s and once in the last decade. 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 Pt notes that this caused so much degeneration in my knees that when I was in my 30s, I couldn't go up and down stairs. Pt reports that since beginning Glucosamine and chondroitin, this has faded, and she is more mobile. She has recently been suffering an increase in bilateral posterior hip pain, especially with extended sitting, or trying to stand up after extended sitting. Pt also reports burning in the back of her hips, L>R. Pt reports that her PCP recently increased her Celebrex, which helped some, but just this past weekend, took a ferry to [place], and after sitting/ lying down for the trip, could barely walk off the ferry she was so stiff and sore. She is currently feeling improved, but everything just feels so tight. Prior Treatments and Tests Hip x-ray: IMPRESSION: Mild bilateral hip degeneration, probably age-appropriate. If the patient's pain or other symptoms persist, consider further evaluation with MRI. Per: Danny Mccullough M.D. on 08/2019 Lumbar x-ray: IMPRESSION: Multilevel moderate lumbar spondylosis and facet arthropathy. Levoscoliosis. Per: Danny Mccullough M.D. on 08/2019 Future Testing and Treatments Planned Possible further evaluation with MRI, per radiologist report PT-OP-C Subjective Start: 08/21/19 15:30 Freq: Status: Active Protocol: Document 04/19/20 10:35 DCW (Rec: 04/19/20 11:17 DCW [id number]) OP-PT Subjective Patient Comments Patient Comments Pt reports she got a very good night's sleep last night, still woke up stiff, but was able to loosen up with stretching and spending some time in her hot tub. PT-OP-F Manual Assessment Start: 08/21/19 15:30 Freq: Status: Active Protocol: Document 02/18/20 15:20 DCW (Rec: 02/18/20 16:02 DCW [id number]) Manual Assessments Soft Tissue Assessment Soft Tissue Mobility Assessment Tenderness to palpation 1/4 - Complaint of Pain: right hip adductors Tenderness to palpation 2/4 - Pain with wincing: L QL, Bilateral piriformis, bilateral psoas Moderate-severe tone along bilateral posterior, lateral, and anterior hips, L>R Joint Mobility Assessment Joint Mobility Assessment Hypomobility throughout lumbar spine. Hypermobility of left tibiotalar joint PT-OP-G Mobility & Gait Start: 11/12/19 17:28 Freq: Status: Active Protocol: Document 02/18/20 15:20 DCW (Rec: 02/18/20 16:02 DCW [id number]) OP Gait Assessment Gait Deviations General Gait Pattern Flexed Trunk,Lateral Trunk Lean Comments Gait Comments During gait, pt demonstrates increased lumbar rotation and a mild left lateral flexion. PT-OP-K Range of Motion Start: 08/21/19 15:30 Freq: Status: Active Protocol: Document 02/18/20 15:20 DCW (Rec: 02/18/20 16:02 DCW [id number]) Lumbar Spine Range of Motion Lumbar Spine Active Degrees Testing Position Standing Flexion 60 Extension 8 ROM Limitations Soft Tissue Tightness,Muscle Tone,Pain Comments Nearly entire extension ROM is from her thoracic spine, minimal motion in lumbar PT-OP-L Special Tests Start: 08/21/19 15:30 Freq: Status: Active Protocol: Document 02/18/20 15:20 DCW (Rec: 02/18/20 16:02 DCW [id number]) Special Tests Hip Special Tests RAMONA Test Results Positive ipsilateral left Other Special Tests Special Tests Pt exhibits significant accessory muscle breathing when distracted PT-OP-M Strength Start: 08/21/19 15:30 Freq: Status: Active Protocol: Document 02/18/20 15:20 DCW (Rec: 02/18/20 16:02 DCW [id number]) Hip Strength Hip Manual Muscle Testing Bilateral Abduction 4- Good- Adduction 4- Good- Knee Strength Knee Manual Muscle Testing Bilateral Comments All LE MMT 5/5 bilaterally except: Left knee flexion 4/5 PT-OP-Q Treatments Start: 08/21/19 15:30 Freq: Status: Active Protocol: Document 04/19/20 10:35 DCW (Rec: 04/19/20 11:17 DCW [id number]) Cardio Equipment Bicycle (Upright) Duration (Minutes) 6 Resistance 8 Seat Position 4 Gym Equipment Therapeutic Ball Pelvic circles Exercise Details Pelvic circles, pelvic tilts Ball Size/Color Green - 65 cm Body Position Sitting Bridging /c HS curl Exercise Details Bridging /c HS curl Ball Size/Color Red - 55 cm Body Position Supine Therapeutic Exercises Supine Exercises piriformis Side bilateral Reps/Minutes 20 secs hold x4 Manual Therapy Treatment Soft Tissue Mobilization Piriformis Body Location B Piriformis Mobilization Type Sustained Pressure Intensity/Depth Deep QL Body Location R QL Mobilization Type Sustained Pressure,Trigger Point Release Intensity/Depth Deep Body Position Prone Psoas Body Location B Psoas Mobilization Type Sustained Pressure Intensity/Depth Deep Body Position Supine Manual Traction hip distraction Details R LE - Long [place] Body Position Supine Reps/Duration 10 secs hold x 5 Comments reports of symptoms relief. PT-OP-T Assessment and Plan Start: 08/21/19 15:30 Freq: Status: Active Protocol: Document 04/19/20 10:35 DCW (Rec: 04/19/20 11:17 DCW [id number]) Physical Therapy Assessment Goals Three Impairment Pt unable to go out dancing with her Wireless Technician Goal (LTG) Pt to tolerate dancing for 45 minutes without increasing her pain LTG Duration 04/19/20 Two Impairment Pt unable to sit in her car longer than 30 minutes without moderate pain Half-Way Goal (LTG) Pt to tolerate sitting in her car for 60 minutes with pain < 4/10 LTG Duration 04/19/20 One Impairment Pt does not have an appropriate HEP Short Term Goal (STG) Pt to be independent and compliant with an appropriate HEP STG Duration Met Assessment Summary Assessment Pt did very well today, left side greatly reduced tone. Did have some increased right- sided tone, especially right QL, but overall much improved. Physical Therapy Plan Frequency and Duration Frequency of Treatment 2x/Week Duration of Treatment 12 weeks Plan of Care Start Date 02/18/20 Plan of Care End Date 05/12/20 Therapeutic Interventions Therapeutic Interventions Aquatic Therapy,Home Exercise Program,Joint Mobilizations, Manual Therapy,Patient/ Caregiver Education,Self-Care/ Home Management,Soft Tissue Mobilization,Therapeutic Activities,Therapeutic Exercises Modalities Cold Pack/Ice Massage,Electric Stimulation,Hot Packs, Traction- Mechanical, Ultrasound Next Visit Focus/Plan Next Note Type Treatment Note Next Visit Plan Assess response to last tx, supine pelvic alignment awareness for LS stability to allow mobility. Review standing QL stretch, add L foot propped on stool during stretch. Assess pt on elliptical.
--- NOTE | 2020-04-21 11:15 | PT.OTN ---
Current Diagnoses Osteoarthritis of hip, unspecified (04/21/20) Pain in right hip (04/21/20) Pain in left hip (04/21/20) Intervertebral disc disorders with myelopathy, lumbar region (04/21/20) Lumbago with sciatica, unspecified side (04/21/20) Physical Therapy Treatment Note PT-OP-A Visit Information Start: 08/21/19 15:30 Freq: Status: Active Protocol: Document 04/21/20 10:36 DCW (Rec: 04/21/20 11:15 DCW [id number]) Out-Patient Physical Therapy Visit Information Visit Information Visit Type Treatment Note Visit Note 6 min late Visit Start Time 10:36 Visit Stop Time 11:15 Total Visit Minutes 39 Visit Number 40 Number of CAFETERIA SERVER Visits 0 Evaluation Information Evaluation Date 08/21/19 PT-OP-B Current Condition Start: 08/21/19 15:30 Freq: Status: Active Protocol: Document 08/21/19 15:30 DCW (Rec: 08/21/19 17:32 DCW [id number]) Current Condition History of Current Condition Onset Date Multi-year history Current Complaints low back and bilateral hip pain History of Current Condition Pt is a 58 year old female with a long history of low back and hip pain. Pt reports she has twice had a partial dislocation of her right hip, happening once in the 90s and once in the last decade. 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 Pt notes that this caused so much degeneration in my knees that when I was in my 30s, I couldn't go up and down stairs. Pt reports that since beginning Glucosamine and chondroitin, this has faded, and she is more mobile. She has recently been suffering an increase in bilateral posterior hip pain, especially with extended sitting, or trying to stand up after extended sitting. Pt also reports burning in the back of her hips, L>R. Pt reports that her PCP recently increased her Celebrex, which helped some, but just this past weekend, took a ferry to [place], and after sitting/ lying down for the trip, could barely walk off the ferry she was so stiff and sore. She is currently feeling improved, but everything just feels so tight. Prior Treatments and Tests Hip x-ray: IMPRESSION: Mild bilateral hip degeneration, probably age-appropriate. If the patient's pain or other symptoms persist, consider further evaluation with MRI. Per: Danny Mccullough M.D. on 08/2019 Lumbar x-ray: IMPRESSION: Multilevel moderate lumbar spondylosis and facet arthropathy. Levoscoliosis. Per: Danny Mccullough M.D. on 08/2019 Future Testing and Treatments Planned Possible further evaluation with MRI, per radiologist report PT-OP-C Subjective Start: 08/21/19 15:30 Freq: Status: Active Protocol: Document 04/21/20 10:36 DCW (Rec: 04/21/20 11:15 DCW [id number]) OP-PT Subjective Patient Comments Patient Comments Pt reports she warmed up in her hot tub this morning. PT-OP-F Manual Assessment Start: 08/21/19 15:30 Freq: Status: Active Protocol: Document 02/18/20 15:20 DCW (Rec: 02/18/20 16:02 DCW [id number]) Manual Assessments Soft Tissue Assessment Soft Tissue Mobility Assessment Tenderness to palpation 1/4 - Complaint of Pain: right hip adductors Tenderness to palpation 2/4 - Pain with wincing: L QL, Bilateral piriformis, bilateral psoas Moderate-severe tone along bilateral posterior, lateral, and anterior hips, L>R Joint Mobility Assessment Joint Mobility Assessment Hypomobility throughout lumbar spine. Hypermobility of left tibiotalar joint PT-OP-G Mobility & Gait Start: 11/12/19 17:28 Freq: Status: Active Protocol: Document 02/18/20 15:20 DCW (Rec: 02/18/20 16:02 DCW [id number]) OP Gait Assessment Gait Deviations General Gait Pattern Flexed Trunk,Lateral Trunk Lean Comments Gait Comments During gait, pt demonstrates increased lumbar rotation and a mild left lateral flexion. PT-OP-K Range of Motion Start: 08/21/19 15:30 Freq: Status: Active Protocol: Document 02/18/20 15:20 DCW (Rec: 02/18/20 16:02 DCW [id number]) Lumbar Spine Range of Motion Lumbar Spine Active Degrees Testing Position Standing Flexion 60 Extension 8 ROM Limitations Soft Tissue Tightness,Muscle Tone,Pain Comments Nearly entire extension ROM is from her thoracic spine, minimal motion in lumbar PT-OP-L Special Tests Start: 08/21/19 15:30 Freq: Status: Active Protocol: Document 02/18/20 15:20 DCW (Rec: 02/18/20 16:02 DCW [id number]) Special Tests Hip Special Tests RAMONA Test Results Positive ipsilateral left Other Special Tests Special Tests Pt exhibits significant accessory muscle breathing when distracted PT-OP-M Strength Start: 08/21/19 15:30 Freq: Status: Active Protocol: Document 02/18/20 15:20 DCW (Rec: 02/18/20 16:02 DCW [id number]) Hip Strength Hip Manual Muscle Testing Bilateral Abduction 4- Good- Adduction 4- Good- Knee Strength Knee Manual Muscle Testing Bilateral Comments All LE MMT 5/5 bilaterally except: Left knee flexion 4/5 PT-OP-Q Treatments Start: 08/21/19 15:30 Freq: Status: Active Protocol: Document 04/21/20 10:36 DCW (Rec: 04/21/20 11:15 DCW [id number]) Gym Equipment Therapeutic Ball Bridging /c HS curl Exercise Details Bridging /c HS curl Ball Size/Color Red - 55 cm Body Position Supine Low Trunk Rotations Exercise Details LTR - hip/knee 90/90 on ball Ball Size/Color Red - 55 cm Body Position Hooklying Therapeutic Exercises Sidelying Exercises 1 Sidelying Exercise Name Open book Side bilateral Reps/Minutes x5 each side Manual Therapy Treatment Soft Tissue Mobilization Piriformis Body Location B Piriformis Mobilization Type Sustained Pressure Intensity/Depth Deep QL Body Location B QL Mobilization Type Sustained Pressure,Trigger Point Release Intensity/Depth Deep Body Position Prone Psoas Body Location B Psoas Mobilization Type Sustained Pressure Intensity/Depth Deep Body Position Supine PT-OP-T Assessment and Plan Start: 08/21/19 15:30 Freq: Status: Active Protocol: Document 04/21/20 10:36 DCW (Rec: 04/21/20 11:15 DCW [id number]) Physical Therapy Assessment Goals Three Impairment Pt unable to go out dancing with her Penitentiary Goal (LTG) Pt to tolerate dancing for 45 minutes without increasing her pain LTG Duration 04/19/20 Two Impairment Pt unable to sit in her car longer than 30 minutes without moderate pain System Operation Superintendent Goal (LTG) Pt to tolerate sitting in her car for 60 minutes with pain < 4/10 LTG Duration 04/19/20 One Impairment Pt does not have an appropriate HEP Short Term Goal (STG) Pt to be independent and compliant with an appropriate HEP STG Duration Met Assessment Summary Assessment Pt doing much better with gait , minimal deficits, mainly just still mild left-sided lean secondary to QL tightness . Pt tolerating treatment well . Physical Therapy Plan Frequency and Duration Frequency of Treatment 2x/Week Duration of Treatment 12 weeks Plan of Care Start Date 02/18/20 Plan of Care End Date 05/12/20 Therapeutic Interventions Therapeutic Interventions Aquatic Therapy,Home Exercise Program,Joint Mobilizations, Manual Therapy,Patient/ Caregiver Education,Self-Care/ Home Management,Soft Tissue Mobilization,Therapeutic Activities,Therapeutic Exercises Modalities Cold Pack/Ice Massage,Electric Stimulation,Hot Packs, Traction- Mechanical, Ultrasound Next Visit Focus/Plan Next Note Type Treatment Note Next Visit Plan Assess response to last tx, supine pelvic alignment awareness for LS stability to allow mobility. Review standing QL stretch, add L foot propped on stool during stretch. Assess pt on elliptical.
--- NOTE | 2020-04-26 11:13 | PT.OTN ---
Current Diagnoses Osteoarthritis of hip, unspecified (04/26/20) Pain in right hip (04/26/20) Pain in left hip (04/26/20) Intervertebral disc disorders with myelopathy, lumbar region (04/26/20) Lumbago with sciatica, unspecified side (04/26/20) Physical Therapy Treatment Note PT-OP-A Visit Information Start: 08/21/19 15:30 Freq: Status: Active Protocol: Document 04/26/20 10:32 DCW (Rec: 04/26/20 11:13 DCW [id number]) Out-Patient Physical Therapy Visit Information Visit Information Visit Type Treatment Note Visit Start Time 10:32 Visit Stop Time 11:15 Total Visit Minutes 43 Visit Number 41 Number of TURBINE ROOM ATTENDANT Visits 0 Evaluation Information Evaluation Date 08/21/19 PT-OP-B Current Condition Start: 08/21/19 15:30 Freq: Status: Active Protocol: Document 08/21/19 15:30 DCW (Rec: 08/21/19 17:32 DCW [id number]) Current Condition History of Current Condition Onset Date Multi-year history Current Complaints low back and bilateral hip pain History of Current Condition Pt is a 58 year old female with a long history of low back and hip pain. Pt reports she has twice had a partial dislocation of her right hip, happening once in the 90s and once in the last decade. 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 Pt notes that this caused so much degeneration in my knees that when I was in my 30s, I couldn't go up and down stairs. Pt reports that since beginning Glucosamine and chondroitin, this has faded, and she is more mobile. She has recently been suffering an increase in bilateral posterior hip pain, especially with extended sitting, or trying to stand up after extended sitting. Pt also reports burning in the back of her hips, L>R. Pt reports that her PCP recently increased her Celebrex, which helped some, but just this past weekend, took a ferry to [place], and after sitting/ lying down for the trip, could barely walk off the ferry she was so stiff and sore. She is currently feeling improved, but everything just feels so tight. Prior Treatments and Tests Hip x-ray: IMPRESSION: Mild bilateral hip degeneration, probably age-appropriate. If the patient's pain or other symptoms persist, consider further evaluation with MRI. Per: Danny Mccullough M.D. on 08/2019 Lumbar x-ray: IMPRESSION: Multilevel moderate lumbar spondylosis and facet arthropathy. Levoscoliosis. Per: Danny Mccullough M.D. on 08/2019 Future Testing and Treatments Planned Possible further evaluation with MRI, per radiologist report PT-OP-C Subjective Start: 08/21/19 15:30 Freq: Status: Active Protocol: Document 04/26/20 10:32 DCW (Rec: 04/26/20 11:13 DCW [id number]) OP-PT Subjective Patient Comments Patient Comments I'm feeling good right now. I tried to do my exercises later at night yesterday, to see if it would make me feel better in the morning, but I still woke up really stiff. I hopped in my hot tub, and now I'm feeling better. PT-OP-F Manual Assessment Start: 08/21/19 15:30 Freq: Status: Active Protocol: Document 02/18/20 15:20 DCW (Rec: 02/18/20 16:02 DCW [id number]) Manual Assessments Soft Tissue Assessment Soft Tissue Mobility Assessment Tenderness to palpation 1/4 - Complaint of Pain: right hip adductors Tenderness to palpation 2/4 - Pain with wincing: L QL, Bilateral piriformis, bilateral psoas Moderate-severe tone along bilateral posterior, lateral, and anterior hips, L>R Joint Mobility Assessment Joint Mobility Assessment Hypomobility throughout lumbar spine. Hypermobility of left tibiotalar joint PT-OP-G Mobility & Gait Start: 11/12/19 17:28 Freq: Status: Active Protocol: Document 02/18/20 15:20 DCW (Rec: 02/18/20 16:02 DCW [id number]) OP Gait Assessment Gait Deviations General Gait Pattern Flexed Trunk,Lateral Trunk Lean Comments Gait Comments During gait, pt demonstrates increased lumbar rotation and a mild left lateral flexion. PT-OP-K Range of Motion Start: 08/21/19 15:30 Freq: Status: Active Protocol: Document 02/18/20 15:20 DCW (Rec: 02/18/20 16:02 DCW [id number]) Lumbar Spine Range of Motion Lumbar Spine Active Degrees Testing Position Standing Flexion 60 Extension 8 ROM Limitations Soft Tissue Tightness,Muscle Tone,Pain Comments Nearly entire extension ROM is from her thoracic spine, minimal motion in lumbar PT-OP-L Special Tests Start: 08/21/19 15:30 Freq: Status: Active Protocol: Document 02/18/20 15:20 DCW (Rec: 02/18/20 16:02 DCW [id number]) Special Tests Hip Special Tests RAMONA Test Results Positive ipsilateral left Other Special Tests Special Tests Pt exhibits significant accessory muscle breathing when distracted PT-OP-M Strength Start: 08/21/19 15:30 Freq: Status: Active Protocol: Document 02/18/20 15:20 DCW (Rec: 02/18/20 16:02 DCW [id number]) Hip Strength Hip Manual Muscle Testing Bilateral Abduction 4- Good- Adduction 4- Good- Knee Strength Knee Manual Muscle Testing Bilateral Comments All LE MMT 5/5 bilaterally except: Left knee flexion 4/5 PT-OP-Q Treatments Start: 08/21/19 15:30 Freq: Status: Active Protocol: Document 04/26/20 10:32 DCW (Rec: 04/26/20 11:13 DCW [id number]) Cardio Equipment Bicycle (Upright) Duration (Minutes) 6 Resistance 8 Seat Position 4 Gym Equipment Shuttle Recovery Reverse Hip Thrust Details Reverse Unilateral hip thrust Resistance 50# Therapeutic Ball Pelvic circles Exercise Details Pelvic circles, pelvic tilts Ball Size/Color Green - 65 cm Body Position Sitting Resisted Rotation Exercise Details Resisted trunk rotation Ball Size/Color Green - 65 cm Lv 3 T-band Body Position Sitting Manual Therapy Treatment Soft Tissue Mobilization Piriformis Body Location B Piriformis Mobilization Type Sustained Pressure Intensity/Depth Deep QL Body Location B QL Mobilization Type Sustained Pressure,Trigger Point Release Intensity/Depth Deep Body Position Prone Psoas Body Location B Psoas Mobilization Type Sustained Pressure Intensity/Depth Deep Body Position Supine PT-OP-T Assessment and Plan Start: 08/21/19 15:30 Freq: Status: Active Protocol: Document 04/26/20 10:32 DCW (Rec: 04/26/20 11:13 DCW [id number]) Physical Therapy Assessment Goals Three Impairment Pt unable to go out dancing with her Spectrographer Goal (LTG) Pt to tolerate dancing for 45 minutes without increasing her pain LTG Duration 8/3/20 Two Impairment Pt unable to sit in her car longer than 30 minutes without moderate pain Spectrographer Goal (LTG) Pt to tolerate sitting in her car for 60 minutes with pain < 4/10 LTG Duration 04/19/20 One Impairment Pt does not have an appropriate HEP Short Term Goal (STG) Pt to be independent and compliant with an appropriate HEP STG Duration Met Assessment Summary Assessment Tone throughout low back and hips much improved today. Physical Therapy Plan Frequency and Duration Frequency of Treatment 2x/Week Duration of Treatment 12 weeks Plan of Care Start Date 02/18/20 Plan of Care End Date 05/12/20 Therapeutic Interventions Therapeutic Interventions Aquatic Therapy,Home Exercise Program,Joint Mobilizations, Manual Therapy,Patient/ Caregiver Education,Self-Care/ Home Management,Soft Tissue Mobilization,Therapeutic Activities,Therapeutic Exercises Modalities Cold Pack/Ice Massage,Electric Stimulation,Hot Packs, Traction- Mechanical, Ultrasound Next Visit Focus/Plan Next Note Type Treatment Note Next Visit Plan Assess response to last tx, supine pelvic alignment awareness for LS stability to allow mobility. Review standing QL stretch, add L foot propped on stool during stretch. Assess pt on elliptical.
--- NOTE | 2020-04-28 13:39 | PT.OTN ---
Current Diagnoses Osteoarthritis of hip, unspecified (04/28/20) Pain in right hip (04/28/20) Pain in left hip (04/28/20) Intervertebral disc disorders with myelopathy, lumbar region (04/28/20) Lumbago with sciatica, unspecified side (04/28/20) Physical Therapy Treatment Note PT-OP-A Visit Information Start: 08/21/19 15:30 Freq: Status: Active Protocol: Document 04/28/20 10:30 DCW (Rec: 04/28/20 12:05 DCW [id number]) Out-Patient Physical Therapy Visit Information Visit Information Visit Type Treatment Note Visit Start Time 10:30 Visit Stop Time 11:15 Total Visit Minutes 45 Visit Number 42 Number of MOCK UP ASSEMBLER Visits 0 Evaluation Information Evaluation Date 08/21/19 PT-OP-B Current Condition Start: 08/21/19 15:30 Freq: Status: Active Protocol: Document 08/21/19 15:30 DCW (Rec: 08/21/19 17:32 DCW [id number]) Current Condition History of Current Condition Onset Date Multi-year history Current Complaints low back and bilateral hip pain History of Current Condition Pt is a 58 year old female with a long history of low back and hip pain. Pt reports she has twice had a partial dislocation of her right hip, happening once in the 90s and once in the last decade. 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 Pt notes that this caused so much degeneration in my knees that when I was in my 30s, I couldn't go up and down stairs. Pt reports that since beginning Glucosamine and chondroitin, this has faded, and she is more mobile. She has recently been suffering an increase in bilateral posterior hip pain, especially with extended sitting, or trying to stand up after extended sitting. Pt also reports burning in the back of her hips, L>R. Pt reports that her PCP recently increased her Celebrex, which helped some, but just this past weekend, took a ferry to [place], and after sitting/ lying down for the trip, could barely walk off the ferry she was so stiff and sore. She is currently feeling improved, but everything just feels so tight. Prior Treatments and Tests Hip x-ray: IMPRESSION: Mild bilateral hip degeneration, probably age-appropriate. If the patient's pain or other symptoms persist, consider further evaluation with MRI. Per: Danny Mccullough M.D. on 08/2019 Lumbar x-ray: IMPRESSION: Multilevel moderate lumbar spondylosis and facet arthropathy. Levoscoliosis. Per: Danny Mccullough M.D. on 08/2019 Future Testing and Treatments Planned Possible further evaluation with MRI, per radiologist report PT-OP-C Subjective Start: 08/21/19 15:30 Freq: Status: Active Protocol: Document 04/28/20 10:30 DCW (Rec: 04/28/20 12:05 DCW [id number]) OP-PT Subjective Patient Comments Patient Comments Pt reports she did her stretches yesterday later than usual, and then had trouble getting to sleep, and probably didn't get to sleep until about 3. I expected to be much more stiff than usual, but it really wasn't any worse than any other morning. PT-OP-F Manual Assessment Start: 08/21/19 15:30 Freq: Status: Active Protocol: Document 04/28/20 10:30 DCW (Rec: 04/28/20 13:39 DCW [id number]) Manual Assessments Joint Mobility Assessment Joint Mobility Assessment Hypomobility throughout lumbar spine. Hypermobility of left tibiotalar joint PT-OP-G Mobility & Gait Start: 11/12/19 17:28 Freq: Status: Active Protocol: Document 04/28/20 10:30 DCW (Rec: 04/28/20 13:39 DCW [id number]) OP Gait Assessment Comments Gait Comments Left lateral trunk flexion still present, reduced compared to last assessment. PT-OP-K Range of Motion Start: 08/21/19 15:30 Freq: Status: Active Protocol: Document 04/28/20 10:30 DCW (Rec: 04/28/20 13:39 DCW [id number]) Lumbar Spine Range of Motion Lumbar Spine Active Degrees Testing Position Standing Flexion 65 Extension 12 ROM Limitations Soft Tissue Tightness,Muscle Tone,Pain Comments Improved lumbar mobility, still overuse of Thoracic spine mobility in flexion and extension PT-OP-L Special Tests Start: 08/21/19 15:30 Freq: Status: Active Protocol: Document 04/28/20 10:30 DCW (Rec: 04/28/20 13:39 DCW [id number]) Special Tests Hip Special Tests RAMONA Test Results Negative Other Special Tests Special Tests Accessory muscle breathing greatly reduced, only present with disctracted during heavy exercise PT-OP-M Strength Start: 08/21/19 15:30 Freq: Status: Active Protocol: Document 04/28/20 10:30 DCW (Rec: 04/28/20 13:39 DCW [id number]) Hip Strength Hip Manual Muscle Testing Bilateral Abduction 4- Good- Adduction 4- Good- PT-OP-Q Treatments Start: 08/21/19 15:30 Freq: Status: Active Protocol: Document 04/28/20 10:30 DCW (Rec: 04/28/20 12:05 DCW [id number]) Cardio Equipment Bicycle (Upright) Duration (Minutes) 6 Resistance 8 Seat Position 4 Gym Equipment Therapeutic Ball Pelvic circles Exercise Details Pelvic circles, pelvic tilts Ball Size/Color Green - 65 cm Body Position Sitting Resisted Rotation Exercise Details Resisted trunk rotation Ball Size/Color Green - 65 cm Lv 3 T-band Body Position Sitting Manual Therapy Treatment Soft Tissue Mobilization Piriformis Body Location B Piriformis Mobilization Type Sustained Pressure Intensity/Depth Deep QL Body Location B QL Mobilization Type Sustained Pressure,Trigger Point Release Intensity/Depth Deep Body Position Prone Psoas Body Location B Psoas Mobilization Type Sustained Pressure Intensity/Depth Deep Body Position Supine PT-OP-T Assessment and Plan Start: 08/21/19 15:30 Freq: Status: Active Protocol: Document 04/28/20 10:30 DCW (Rec: 04/28/20 12:05 DCW [id number]) Physical Therapy Assessment Impairments Impairments Activity Tolerance,Functional Activities,Pain,ROM,Strength, Tone Goals Three Impairment Pt unable to go out dancing with her Branch Logistics Supervisor Goal (LTG) Pt to tolerate dancing for 45 minutes without increasing her pain LTG Duration 07/06 - improving Two Impairment Pt unable to sit in her car longer than 30 minutes without moderate pain Branch Logistics Supervisor Goal (LTG) Pt to tolerate sitting in her car for 60 minutes with pain < 4/10 LTG Duration 06/28/20 One Impairment Pt does not have an appropriate HEP Short Term Goal (STG) Pt to be independent and compliant with an appropriate HEP STG Duration Met Assessment Summary Assessment Significant improvement with tone through low back, increased tone today in piriformis. Pt demonstrating improvement in lumbar ROM, relying less on her thoracic spine during flexion and extension. Increased ability to sit in vehicle for extended period of time. Breathing much improved, less accessory muscle breathing, only occurs occasionally during heavier workout when distracted. Physical Therapy Plan Frequency and Duration Frequency of Treatment 2x/Week Duration of Treatment 10 weeks Plan of Care Start Date 04/28/20 Plan of Care End Date 07/07/20 Therapeutic Interventions Therapeutic Interventions Aquatic Therapy,Home Exercise Program,Joint Mobilizations, Manual Therapy,Patient/ Caregiver Education,Self-Care/ Home Management,Soft Tissue Mobilization,Therapeutic Activities,Therapeutic Exercises Modalities Cold Pack/Ice Massage,Electric Stimulation,Hot Packs, Traction- Mechanical, Ultrasound Other Referrals/Consults Referrals/Consults Recommended Pt would likely benefit from massage/MFR Next Visit Focus/Plan Next Note Type Treatment Note Next Visit Plan Assess response to last tx, supine pelvic alignment awareness for LS stability to allow mobility. Review standing QL stretch, add L foot propped on stool during stretch. Assess pt on elliptical.
--- NOTE | 2020-04-28 13:40 | PT.OPPOC ---
Physical, Occupational & Speech Therapy At [facility] Current Diagnoses Osteoarthritis of hip, unspecified (04/28/20) Pain in right hip (04/28/20) Pain in left hip (04/28/20) Intervertebral disc disorders with myelopathy, lumbar region (04/28/20) Lumbago with sciatica, unspecified side (04/28/20) Visit Care Team Role Provider Type Jersey Price MD Attending Provider Physician Primary Care Provider Specialty: [facility] Address: [address] [place] [address], [facility] Email: [email or web address] Plan Of Care PT-OP-T Assessment and Plan Start: 08/21/19 15:30 Freq: Status: Active Protocol: Document 04/28/20 10:30 DCW (Rec: 04/28/20 12:05 DCW [id number]) Physical Therapy Assessment Impairments Impairments Activity Tolerance,Functional Activities,Pain,ROM,Strength, Tone Goals Three Impairment Pt unable to go out dancing with her Skilled Nursing Goal (LTG) Pt to tolerate dancing for 45 minutes without increasing her pain LTG Duration 07/06 - improving Two Impairment Pt unable to sit in her car longer than 30 minutes without moderate pain Veterinary Surgeon Goal (LTG) Pt to tolerate sitting in her car for 60 minutes with pain < 4/10 LTG Duration 06/28/20 One Impairment Pt does not have an appropriate HEP Short Term Goal (STG) Pt to be independent and compliant with an appropriate HEP STG Duration Met Assessment Summary Assessment Significant improvement with tone through low back, increased tone today in piriformis. Pt demonstrating improvement in lumbar ROM, relying less on her thoracic spine during flexion and extension. Increased ability to sit in vehicle for extended period of time. Breathing much improved, less accessory muscle breathing, only occurs occasionally during heavier workout when distracted. Physical Therapy Plan Frequency and Duration Frequency of Treatment 2x/Week Duration of Treatment 10 weeks Plan of Care Start Date 04/28/20 Plan of Care End Date 07/07/20 Therapeutic Interventions Therapeutic Interventions Aquatic Therapy,Home Exercise Program,Joint Mobilizations, Manual Therapy,Patient/ Caregiver Education,Self-Care/ Home Management,Soft Tissue Mobilization,Therapeutic Activities,Therapeutic Exercises Modalities Cold Pack/Ice Massage,Electric Stimulation,Hot Packs, Traction- Mechanical, Ultrasound Other Referrals/Consults Referrals/Consults Recommended Pt would likely benefit from massage/MFR Next Visit Focus/Plan Next Note Type Treatment Note Next Visit Plan Assess response to last tx, supine pelvic alignment awareness for LS stability to allow mobility. Review standing QL stretch, add L foot propped on stool during stretch. Assess pt on elliptical. Plan of Care Dates Plan of Care Start Date 04/28/20 Plan of Care End Date 07/07/20 Electronically Signed by: Rudi Doyle, PT 04/28/20 1739 Please Sign and Return: I have reviewed this Plan of Care and certify that the skilled therapy services above are required to meet the patient?s needs. Physician Signature Date Printed Name and Credentials Clinical Instructor Signature Printed Name and Credentials
--- NOTE | 2020-05-03 12:47 | PT.OTN ---
Current Diagnoses Osteoarthritis of hip, unspecified (05/03/20) Pain in right hip (05/03/20) Pain in left hip (05/03/20) Intervertebral disc disorders with myelopathy, lumbar region (05/03/20) Lumbago with sciatica, unspecified side (05/03/20) Physical Therapy Treatment Note PT-OP-A Visit Information Start: 08/21/19 15:30 Freq: Status: Active Protocol: Document 05/03/20 12:00 DCW (Rec: 05/03/20 12:47 DCW [id number]) Out-Patient Physical Therapy Visit Information Visit Information Visit Type Treatment Note Visit Start Time 12:00 Visit Stop Time 12:45 Total Visit Minutes 45 Visit Number 43 Number of PROCESS ARCHITECT Visits 0 Evaluation Information Evaluation Date 08/21/19 PT-OP-B Current Condition Start: 08/21/19 15:30 Freq: Status: Active Protocol: Document 08/21/19 15:30 DCW (Rec: 08/21/19 17:32 DCW [id number]) Current Condition History of Current Condition Onset Date Multi-year history Current Complaints low back and bilateral hip pain History of Current Condition Pt is a 58 year old female with a long history of low back and hip pain. Pt reports she has twice had a partial dislocation of her right hip, happening once in the 90s and once in the last decade. 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 Pt notes that this caused so much degeneration in my knees that when I was in my 30s, I couldn't go up and down stairs. Pt reports that since beginning Glucosamine and chondroitin, this has faded, and she is more mobile. She has recently been suffering an increase in bilateral posterior hip pain, especially with extended sitting, or trying to stand up after extended sitting. Pt also reports burning in the back of her hips, L>R. Pt reports that her PCP recently increased her Celebrex, which helped some, but just this past weekend, took a ferry to [place], and after sitting/ lying down for the trip, could barely walk off the ferry she was so stiff and sore. She is currently feeling improved, but everything just feels so tight. Prior Treatments and Tests Hip x-ray: IMPRESSION: Mild bilateral hip degeneration, probably age-appropriate. If the patient's pain or other symptoms persist, consider further evaluation with MRI. Per: Danny Mccullough M.D. on 08/2019 Lumbar x-ray: IMPRESSION: Multilevel moderate lumbar spondylosis and facet arthropathy. Levoscoliosis. Per: Danny Mccullough M.D. on 08/2019 Future Testing and Treatments Planned Possible further evaluation with MRI, per radiologist report PT-OP-C Subjective Start: 08/21/19 15:30 Freq: Status: Active Protocol: Document 05/03/20 12:00 DCW (Rec: 05/03/20 12:47 DCW [id number]) OP-PT Subjective Patient Comments Patient Comments Twice now, since I saw you last, I woke up in the night, couldn't get back to sleep, so I went over to our guest bedroom, did some stretching, spent 6 minutes on the [place] , and then got back to sleep, and I woke up just feeling much better, I was able to move much more easily, so I'm pretty excited about that. PT-OP-F Manual Assessment Start: 08/21/19 15:30 Freq: Status: Active Protocol: Document 04/28/20 10:30 DCW (Rec: 04/28/20 13:39 DCW [id number]) Manual Assessments Joint Mobility Assessment Joint Mobility Assessment Hypomobility throughout lumbar spine. Hypermobility of left tibiotalar joint PT-OP-G Mobility & Gait Start: 11/12/19 17:28 Freq: Status: Active Protocol: Document 04/28/20 10:30 DCW (Rec: 04/28/20 13:39 DCW [id number]) OP Gait Assessment Comments Gait Comments Left lateral trunk flexion still present, reduced compared to last assessment. PT-OP-K Range of Motion Start: 08/21/19 15:30 Freq: Status: Active Protocol: Document 04/28/20 10:30 DCW (Rec: 04/28/20 13:39 DCW [id number]) Lumbar Spine Range of Motion Lumbar Spine Active Degrees Testing Position Standing Flexion 65 Extension 12 ROM Limitations Soft Tissue Tightness,Muscle Tone,Pain Comments Improved lumbar mobility, still overuse of Thoracic spine mobility in flexion and extension PT-OP-L Special Tests Start: 08/21/19 15:30 Freq: Status: Active Protocol: Document 04/28/20 10:30 DCW (Rec: 04/28/20 13:39 DCW [id number]) Special Tests Hip Special Tests RAMONA Test Results Negative Other Special Tests Special Tests Accessory muscle breathing greatly reduced, only present with disctracted during heavy exercise PT-OP-M Strength Start: 08/21/19 15:30 Freq: Status: Active Protocol: Document 04/28/20 10:30 DCW (Rec: 04/28/20 13:39 DCW [id number]) Hip Strength Hip Manual Muscle Testing Bilateral Abduction 4- Good- Adduction 4- Good- PT-OP-Q Treatments Start: 08/21/19 15:30 Freq: Status: Active Protocol: Document 05/03/20 12:00 DCW (Rec: 05/03/20 12:47 DCW [id number]) Cardio Equipment Bicycle (Upright) Duration (Minutes) 6 Resistance 8 Seat Position 4 Gym Equipment Therapeutic Ball Pelvic circles Exercise Details Pelvic circles, pelvic tilts Ball Size/Color Green - 65 cm Body Position Sitting Resisted Rotation Exercise Details Resisted trunk rotation Ball Size/Color Green - 65 cm Lv 3 T-band Body Position Sitting Therapeutic Exercises Standing Exercises hip elevation Standing Exercise Name Hip hiking on step Side bilateral Manual Therapy Treatment Soft Tissue Mobilization Piriformis Body Location B Piriformis Mobilization Type Sustained Pressure Intensity/Depth Deep QL Body Location B QL Mobilization Type Sustained Pressure,Trigger Point Release Intensity/Depth Deep Body Position Prone Psoas Body Location B Psoas Mobilization Type Sustained Pressure Intensity/Depth Deep Body Position Supine PT-OP-T Assessment and Plan Start: 08/21/19 15:30 Freq: Status: Active Protocol: Document 05/03/20 12:00 DCW (Rec: 05/03/20 12:47 DCW [id number]) Physical Therapy Assessment Impairments Impairments Activity Tolerance,Functional Activities,Pain,ROM,Strength, Tone Goals Three Impairment Pt unable to go out dancing with her Color Printer Operator Goal (LTG) Pt to tolerate dancing for 45 minutes without increasing her pain LTG Duration 07/06 - improving Two Impairment Pt unable to sit in her car longer than 30 minutes without moderate pain Long-Term Goal (LTG) Pt to tolerate sitting in her car for 60 minutes with pain < 4/10 LTG Duration 06/28/20 One Impairment Pt does not have an appropriate HEP Short Term Goal (STG) Pt to be independent and compliant with an appropriate HEP STG Duration Met Assessment Summary Assessment Pt experiencing less stiffness and improved overall mobility in hips and low back. Continues to experience some stiffness upon first waking. Physical Therapy Plan Frequency and Duration Frequency of Treatment 2x/Week Duration of Treatment 10 weeks Plan of Care Start Date 04/28/20 Plan of Care End Date 07/07/20 Therapeutic Interventions Therapeutic Interventions Aquatic Therapy,Home Exercise Program,Joint Mobilizations, Manual Therapy,Patient/ Caregiver Education,Self-Care/ Home Management,Soft Tissue Mobilization,Therapeutic Activities,Therapeutic Exercises Modalities Cold Pack/Ice Massage,Electric Stimulation,Hot Packs, Traction- Mechanical, Ultrasound Next Visit Focus/Plan Next Note Type Treatment Note Next Visit Plan Core/low back strengthening for stability, STM.
--- NOTE | 2020-05-11 09:45 | PT.OTN ---
Current Diagnoses Osteoarthritis of hip, unspecified (05/11/20) Pain in right hip (05/11/20) Pain in left hip (05/11/20) Intervertebral disc disorders with myelopathy, lumbar region (05/11/20) Lumbago with sciatica, unspecified side (05/11/20) Physical Therapy Treatment Note PT-OP-A Visit Information Start: 08/21/19 15:30 Freq: Status: Active Protocol: Document 05/11/20 09:02 SP (Rec: 05/11/20 09:49 SP [id number]) Out-Patient Physical Therapy Visit Information Visit Information Visit Type Treatment Note Visit Start Time 09:02 Visit Stop Time 09:45 Total Visit Minutes 43 Visit Number 44 Number of SECURITY SALES CONSULTANT Visits 1 PT-OP-B Current Condition Start: 08/21/19 15:30 Freq: Status: Active Protocol: Document 08/21/19 15:30 DCW (Rec: 08/21/19 17:32 DCW [id number]) Current Condition History of Current Condition Onset Date Multi-year history Current Complaints low back and bilateral hip pain History of Current Condition Pt is a 58 year old female with a long history of low back and hip pain. Pt reports she has twice had a partial dislocation of her right hip, happening once in the 90s and once in the last decade. 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 Pt notes that this caused so much degeneration in my knees that when I was in my 30s, I couldn't go up and down stairs. Pt reports that since beginning Glucosamine and chondroitin, this has faded, and she is more mobile. She has recently been suffering an increase in bilateral posterior hip pain, especially with extended sitting, or trying to stand up after extended sitting. Pt also reports burning in the back of her hips, L>R. Pt reports that her PCP recently increased her Celebrex, which helped some, but just this past weekend, took a ferry to [place], and after sitting/ lying down for the trip, could barely walk off the ferry she was so stiff and sore. She is currently feeling improved, but everything just feels so tight. Prior Treatments and Tests Hip x-ray: IMPRESSION: Mild bilateral hip degeneration, probably age-appropriate. If the patient's pain or other symptoms persist, consider further evaluation with MRI. Per: Danny Mccullough M.D. on 08/2019 Lumbar x-ray: IMPRESSION: Multilevel moderate lumbar spondylosis and facet arthropathy. Levoscoliosis. Per: Danny Mccullough M.D. on 08/2019 Future Testing and Treatments Planned Possible further evaluation with MRI, per radiologist report PT-OP-C Subjective Start: 08/21/19 15:30 Freq: Status: Active Protocol: Document 05/11/20 09:02 SP (Rec: 05/11/20 09:49 SP [id number]) OP-PT Subjective Patient Comments Patient Comments Pt stated is sleeping alot better now. Pt stated experiencing less stiffness in LB but since last tx tweeked R hip after sitting most of the day driving in car and visiting parents that hasn't completely gone away. Does stop along drive more for bathroom need than flexibility need now. Pt commented is not having urine leakage instances anymore. PT-OP-F Manual Assessment Start: 08/21/19 15:30 Freq: Status: Active Protocol: Document 04/28/20 10:30 DCW (Rec: 04/28/20 13:39 DCW [id number]) Manual Assessments Joint Mobility Assessment Joint Mobility Assessment Hypomobility throughout lumbar spine. Hypermobility of left tibiotalar joint PT-OP-G Mobility & Gait Start: 11/12/19 17:28 Freq: Status: Active Protocol: Document 04/28/20 10:30 DCW (Rec: 04/28/20 13:39 DCW [id number]) OP Gait Assessment Comments Gait Comments Left lateral trunk flexion still present, reduced compared to last assessment. PT-OP-K Range of Motion Start: 08/21/19 15:30 Freq: Status: Active Protocol: Document 04/28/20 10:30 DCW (Rec: 04/28/20 13:39 DCW [id number]) Lumbar Spine Range of Motion Lumbar Spine Active Degrees Testing Position Standing Flexion 65 Extension 12 ROM Limitations Soft Tissue Tightness,Muscle Tone,Pain Comments Improved lumbar mobility, still overuse of Thoracic spine mobility in flexion and extension PT-OP-L Special Tests Start: 08/21/19 15:30 Freq: Status: Active Protocol: Document 04/28/20 10:30 DCW (Rec: 04/28/20 13:39 DCW [id number]) Special Tests Hip Special Tests RAMONA Test Results Negative Other Special Tests Special Tests Accessory muscle breathing greatly reduced, only present with disctracted during heavy exercise PT-OP-M Strength Start: 08/21/19 15:30 Freq: Status: Active Protocol: Document 04/28/20 10:30 DCW (Rec: 04/28/20 13:39 DCW [id number]) Hip Strength Hip Manual Muscle Testing Bilateral Abduction 4- Good- Adduction 4- Good- PT-OP-Q Treatments Start: 08/21/19 15:30 Freq: Status: Active Protocol: Document 05/11/20 09:02 SP (Rec: 05/11/20 09:49 SP [id number]) Cardio Equipment Recumbent Bicycle Duration (Minutes) 8 Resistance 5 Seat Position 4 Gym Equipment Therapeutic Ball prone SB hip abd/ext press Exercise Details hip ext/ abd squeeze off elbows Ball Size/Color red 55cm Body Position Prone Reps/Duration x20 Comments cued PPT awareness and core/ glut facilitation Pelvic circles Exercise Details Pelvic circles, pelvic tilts Ball Size/Color Green - 65 cm Body Position Sitting Bridging /c HS curl Exercise Details Bridging /c HS curl Ball Size/Color Red - 55 cm Body Position Supine Reps/Duration x10 Comments Cued BUE support on floor at side for core stability support. Resisted Rotation Exercise Details Resisted trunk rotation Ball Size/Color Green - 65 cm Lv 3 T-band Body Position Sitting Reps/Duration x20 R and L Therapeutic Exercises Supine Exercises piriformis Side bilateral Reps/Minutes 30 secs hold HS, adductor, ITb stretch Supine Exercise Name HS stretch Side bilateral Reps/Minutes 30 sec Standing Exercises hip flexor strech Reps/Minutes 30 x3 Comments cued PPT Other Exercises self STM ball roll to TFL, GLUT Other Exercise Name glut med, PF, ES Side left Equipment Used at wall Reps/Minutes 2 min PT-OP-T Assessment and Plan Start: 08/21/19 15:30 Freq: Status: Active Protocol: Document 05/11/20 09:02 SP (Rec: 05/11/20 09:49 SP [id number]) Physical Therapy Assessment Goals Three Impairment Pt unable to go out dancing with her Halfway Goal (LTG) Pt to tolerate dancing for 45 minutes without increasing her pain LTG Duration 07/06 - improving Two Impairment Pt unable to sit in her car longer than 30 minutes without moderate pain Chairman And Ceo Goal (LTG) Pt to tolerate sitting in her car for 60 minutes with pain < 4/10 LTG Duration 06/28/20 One Impairment Pt does not have an appropriate HEP Short Term Goal (STG) Pt to be independent and compliant with an appropriate HEP STG Duration Met Assessment Summary Assessment Pt stated experiencing less stiffness but since last tx tweeked R hip after sitting in car and visiting parents that hasn't completely gone away. Tx focused on core and glut strengthening with SB, cuing for PPT awareness to allow for spinal and hip stabilization. Continued education onself STMs using ball onwall for flexibility as needed end of tx. Physical Therapy Plan Frequency and Duration Frequency of Treatment 2x/Week Duration of Treatment 10 weeks Plan of Care Start Date 04/28/20 Plan of Care End Date 07/07/20 Therapeutic Interventions Therapeutic Interventions Aquatic Therapy,Home Exercise Program,Joint Mobilizations, Manual Therapy,Patient/ Caregiver Education,Self-Care/ Home Management,Soft Tissue Mobilization,Therapeutic Activities,Therapeutic Exercises Modalities Cold Pack/Ice Massage,Electric Stimulation,Hot Packs, Traction- Mechanical, Ultrasound Other Referrals/Consults Referrals/Consults Recommended Pt would likely benefit from massage/MFR Next Visit Focus/Plan Next Note Type Treatment Note Next Visit Plan Assess response to added prone SB hip ext/abd against TB and review core rotation resistance and hip flex stretch standing to replace anjana, no elevated bed to do at home, during last tx. Continue per PT POC: Core/low back strengthening for stability, STM.
--- NOTE | 2020-05-13 13:45 | PT.OTN ---
Current Diagnoses Osteoarthritis of hip, unspecified (05/13/20) Pain in right hip (05/13/20) Pain in left hip (05/13/20) Intervertebral disc disorders with myelopathy, lumbar region (05/13/20) Lumbago with sciatica, unspecified side (05/13/20) Physical Therapy Treatment Note PT-OP-A Visit Information Start: 08/21/19 15:30 Freq: Status: Active Protocol: Document 05/13/20 13:05 SP (Rec: 05/13/20 13:45 SP [id number]) Out-Patient Physical Therapy Visit Information Visit Information Visit Type Treatment Note Visit Start Time 13:05 Visit Stop Time 13:45 Total Visit Minutes 40 Visit Number 45 Number of [employer] Visits 2 PT-OP-B Current Condition Start: 08/21/19 15:30 Freq: Status: Active Protocol: Document 08/21/19 15:30 DCW (Rec: 08/21/19 17:32 DCW [id number]) Current Condition History of Current Condition Onset Date Multi-year history Current Complaints low back and bilateral hip pain History of Current Condition Pt is a 58 year old female with a long history of low back and hip pain. Pt reports she has twice had a partial dislocation of her right hip, happening once in the 90s and once in the last decade. 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 Pt notes that this caused so much degeneration in my knees that when I was in my 30s, I couldn't go up and down stairs. Pt reports that since beginning Glucosamine and chondroitin, this has faded, and she is more mobile. She has recently been suffering an increase in bilateral posterior hip pain, especially with extended sitting, or trying to stand up after extended sitting. Pt also reports burning in the back of her hips, L>R. Pt reports that her PCP recently increased her Celebrex, which helped some, but just this past weekend, took a ferry to [place], and after sitting/ lying down for the trip, could barely walk off the ferry she was so stiff and sore. She is currently feeling improved, but everything just feels so tight. Prior Treatments and Tests Hip x-ray: IMPRESSION: Mild bilateral hip degeneration, probably age-appropriate. If the patient's pain or other symptoms persist, consider further evaluation with MRI. Per: Danny Mccullough M.D. on 08/2019 Lumbar x-ray: IMPRESSION: Multilevel moderate lumbar spondylosis and facet arthropathy. Levoscoliosis. Per: Danny Mccullough M.D. on 08/2019 Future Testing and Treatments Planned Possible further evaluation with MRI, per radiologist report PT-OP-C Subjective Start: 08/21/19 15:30 Freq: Status: Active Protocol: Document 05/13/20 13:05 SP (Rec: 05/13/20 13:45 SP [id number]) OP-PT Subjective Patient Comments Patient Comments Pt stated trying to be conscious of pelvic alignment during out for walk with no pain. Notices gets less comfortable during stationary activities, washing dishes so placed a cushioned mat under BLE helps. Pt wondering at what point does know if PT working or need to get further assessment, eg MRI?Decreased R hip catching past couple days. PT-OP-F Manual Assessment Start: 08/21/19 15:30 Freq: Status: Active Protocol: Document 04/28/20 10:30 DCW (Rec: 04/28/20 13:39 DCW [id number]) Manual Assessments Joint Mobility Assessment Joint Mobility Assessment Hypomobility throughout lumbar spine. Hypermobility of left tibiotalar joint PT-OP-G Mobility & Gait Start: 11/12/19 17:28 Freq: Status: Active Protocol: Document 04/28/20 10:30 DCW (Rec: 04/28/20 13:39 DCW [id number]) OP Gait Assessment Comments Gait Comments Left lateral trunk flexion still present, reduced compared to last assessment. PT-OP-K Range of Motion Start: 08/21/19 15:30 Freq: Status: Active Protocol: Document 04/28/20 10:30 DCW (Rec: 04/28/20 13:39 DCW [id number]) Lumbar Spine Range of Motion Lumbar Spine Active Degrees Testing Position Standing Flexion 65 Extension 12 ROM Limitations Soft Tissue Tightness,Muscle Tone,Pain Comments Improved lumbar mobility, still overuse of Thoracic spine mobility in flexion and extension PT-OP-L Special Tests Start: 08/21/19 15:30 Freq: Status: Active Protocol: Document 04/28/20 10:30 DCW (Rec: 04/28/20 13:39 DCW [id number]) Special Tests Hip Special Tests RAMONA Test Results Negative Other Special Tests Special Tests Accessory muscle breathing greatly reduced, only present with disctracted during heavy exercise PT-OP-M Strength Start: 08/21/19 15:30 Freq: Status: Active Protocol: Document 04/28/20 10:30 DCW (Rec: 04/28/20 13:39 DCW [id number]) Hip Strength Hip Manual Muscle Testing Bilateral Abduction 4- Good- Adduction 4- Good- PT-OP-Q Treatments Start: 08/21/19 15:30 Freq: Status: Active Protocol: Document 05/13/20 13:05 SP (Rec: 05/13/20 13:45 SP [id number]) Cardio Equipment Bicycle (Upright) Duration (Minutes) 8 Resistance 8 Seat Position 4 Gym Equipment Therapeutic Ball multifidus activation Exercise Details knee unweight from floor Ball Size/Color 65CM Body Position Prone Reps/Duration 2x8 reps Comments cued small range, decrease Bridging /c HS curl Exercise Details Bridging /c HS curl Ball Size/Color Red - 55 cm Body Position Supine Reps/Duration x10 Comments Cued BUE support on floor at side, neutral pelvis awareness and slow controlled lift and HS curl con/eccentric for core stability support. Resisted Rotation Exercise Details Resisted trunk rotation Ball Size/Color Green - 65 cm Lv 3 T-band Body Position Sitting Reps/Duration x20 R and L Comments cued slow rotations, pause end range then controlled eccentric return start pos . Therapeutic Exercises Supine Exercises HS, adductor, ITb stretch Supine Exercise Name adductor Reps/Minutes 20 sec fig 4 leg extended Comments stopped, pinched anterio B R>L hip Standing Exercises FF stretch Standing Exercise Name HS and LB Reps/Minutes 30 x3 hip flexor strech Side right Reps/Minutes 30 x3 Comments cued PPT, slight toe out for focus adductor PT-OP-T Assessment and Plan Start: 08/21/19 15:30 Freq: Status: Active Protocol: Document 05/13/20 13:05 SP (Rec: 05/13/20 13:45 SP [id number]) Physical Therapy Assessment Goals Three Impairment Pt unable to go out dancing with her Intermediate Goal (LTG) Pt to tolerate dancing for 45 minutes without increasing her pain LTG Duration 07/06 - improving Two Impairment Pt unable to sit in her car longer than 30 minutes without moderate pain Intermediate Goal (LTG) Pt to tolerate sitting in her car for 60 minutes with pain < 4/10 LTG Duration 06/28/20 One Impairment Pt does not have an appropriate HEP Short Term Goal (STG) Pt to be independent and compliant with an appropriate HEP STG Duration Met Assessment Summary Assessment Tx focused on core and hip strengthening HEP and added multifidus over SB, LS, hip flexor and adductor stretching to decrease anterior and posterolateral hip pinching, catching feeling. Pt responded well to tx, feels better. Physical Therapy Plan Frequency and Duration Frequency of Treatment 2x/Week Duration of Treatment 10 weeks Plan of Care Start Date 04/28/20 Plan of Care End Date 07/07/20 Therapeutic Interventions Therapeutic Interventions Aquatic Therapy,Home Exercise Program,Joint Mobilizations, Manual Therapy,Patient/ Caregiver Education,Self-Care/ Home Management,Soft Tissue Mobilization,Therapeutic Activities,Therapeutic Exercises Modalities Cold Pack/Ice Massage,Electric Stimulation,Hot Packs, Traction- Mechanical, Ultrasound Next Visit Focus/Plan Next Note Type Treatment Note Next Visit Plan Assess response to multifidus, oblique and core exerises and end of tx stretching. Continue per PT POC: Core/low back strengthening for stability, STM.
--- NOTE | 2020-05-17 09:00 | PT.OTN ---
Current Diagnoses Osteoarthritis of hip, unspecified (05/17/20) Pain in right hip (05/17/20) Pain in left hip (05/17/20) Intervertebral disc disorders with myelopathy, lumbar region (05/17/20) Lumbago with sciatica, unspecified side (05/17/20) Physical Therapy Treatment Note PT-OP-A Visit Information Start: 08/21/19 15:30 Freq: Status: Active Protocol: Document 05/17/20 08:22 SP (Rec: 05/17/20 09:01 SP [id number]) Out-Patient Physical Therapy Visit Information Visit Information Visit Type Treatment Note Visit Start Time 08:22 Visit Stop Time 09:00 Total Visit Minutes 38 Visit Number 46 Number of [facility] Visits 3 PT-OP-B Current Condition Start: 08/21/19 15:30 Freq: Status: Active Protocol: Document 08/21/19 15:30 DCW (Rec: 08/21/19 17:32 DCW [id number]) Current Condition History of Current Condition Onset Date Multi-year history Current Complaints low back and bilateral hip pain History of Current Condition Pt is a 58 year old female with a long history of low back and hip pain. Pt reports she has twice had a partial dislocation of her right hip, happening once in the 90s and once in the last decade. 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 Pt notes that this caused so much degeneration in my knees that when I was in my 30s, I couldn't go up and down stairs. Pt reports that since beginning Glucosamine and chondroitin, this has faded, and she is more mobile. She has recently been suffering an increase in bilateral posterior hip pain, especially with extended sitting, or trying to stand up after extended sitting. Pt also reports burning in the back of her hips, L>R. Pt reports that her PCP recently increased her Celebrex, which helped some, but just this past weekend, took a ferry to [place], and after sitting/ lying down for the trip, could barely walk off the ferry she was so stiff and sore. She is currently feeling improved, but everything just feels so tight. Prior Treatments and Tests Hip x-ray: IMPRESSION: Mild bilateral hip degeneration, probably age-appropriate. If the patient's pain or other symptoms persist, consider further evaluation with MRI. Per: Danny Mccullough M.D. on 08/2019 Lumbar x-ray: IMPRESSION: Multilevel moderate lumbar spondylosis and facet arthropathy. Levoscoliosis. Per: Danny Mccullough M.D. on 08/2019 Future Testing and Treatments Planned Possible further evaluation with MRI, per radiologist report PT-OP-C Subjective Start: 08/21/19 15:30 Freq: Status: Active Protocol: Document 05/17/20 08:22 SP (Rec: 05/17/20 09:01 SP [id number]) OP-PT Subjective Patient Comments Patient Comments Pt accepted a new job little distance away recently. R hip doing well today, haven't been conscious of it recently. Does precore before bed and helps how doing in the am. Will be PT-OP-F Manual Assessment Start: 08/21/19 15:30 Freq: Status: Active Protocol: Document 04/28/20 10:30 DCW (Rec: 04/28/20 13:39 DCW [id number]) Manual Assessments Joint Mobility Assessment Joint Mobility Assessment Hypomobility throughout lumbar spine. Hypermobility of left tibiotalar joint PT-OP-G Mobility & Gait Start: 11/12/19 17:28 Freq: Status: Active Protocol: Document 04/28/20 10:30 DCW (Rec: 04/28/20 13:39 DCW [id number]) OP Gait Assessment Comments Gait Comments Left lateral trunk flexion still present, reduced compared to last assessment. PT-OP-K Range of Motion Start: 08/21/19 15:30 Freq: Status: Active Protocol: Document 04/28/20 10:30 DCW (Rec: 04/28/20 13:39 DCW [id number]) Lumbar Spine Range of Motion Lumbar Spine Active Degrees Testing Position Standing Flexion 65 Extension 12 ROM Limitations Soft Tissue Tightness,Muscle Tone,Pain Comments Improved lumbar mobility, still overuse of Thoracic spine mobility in flexion and extension PT-OP-L Special Tests Start: 08/21/19 15:30 Freq: Status: Active Protocol: Document 04/28/20 10:30 DCW (Rec: 04/28/20 13:39 DCW [id number]) Special Tests Hip Special Tests RAMONA Test Results Negative Other Special Tests Special Tests Accessory muscle breathing greatly reduced, only present with disctracted during heavy exercise PT-OP-M Strength Start: 08/21/19 15:30 Freq: Status: Active Protocol: Document 04/28/20 10:30 DCW (Rec: 04/28/20 13:39 DCW [id number]) Hip Strength Hip Manual Muscle Testing Bilateral Abduction 4- Good- Adduction 4- Good- PT-OP-Q Treatments Start: 08/21/19 15:30 Freq: Status: Active Protocol: Document 05/17/20 08:22 SP (Rec: 05/17/20 09:01 SP [id number]) Cardio Equipment Bicycle (Upright) Duration (Minutes) 8 Resistance 8 Seat Position 4 Gym Equipment Therapeutic Ball Resisted Rotation Exercise Details Resisted trunk rotation Ball Size/Color Green - 65 cm Lv 3 T-band Body Position Sitting Reps/Duration x20 R and L Comments cued slow rotations, pause end range then controlled eccentric return start pos . Therapeutic Exercises Supine Exercises bridge hip abd Supine Exercise Name core bridge w/ hip abd Resistance L 2 TB Equipment Used Ivorian ball Reps/Minutes 2x20 Comments cued neutral pelvis and not over facilitation of PF engagement Sitting Exercises PF stretch Sitting Exercise Name Piriformis stretch: Figure-4, [id number] shoulder Side bilateral Reps/Minutes 30 x2 Standing Exercises SLS Side bilateral Reps/Minutes 30 x3 Comments cued PPT and level pelvis standing hip abd Standing Exercise Name hip abd Side bilateral Resistance #3 TB Equipment Used contact support for bal Reps/Minutes 2 x10 each Comments cued upright posture and PPT awareness todecrease LB recruitment PT-OP-T Assessment and Plan Start: 08/21/19 15:30 Freq: Status: Active Protocol: Document 05/17/20 08:22 SP (Rec: 05/17/20 09:01 SP [id number]) Physical Therapy Assessment Goals Three Impairment Pt unable to go out dancing with her Prison Goal (LTG) Pt to tolerate dancing for 45 minutes without increasing her pain LTG Duration 07/06 - improving Two Impairment Pt unable to sit in her car longer than 30 minutes without moderate pain Lump Receiver Goal (LTG) Pt to tolerate sitting in her car for 60 minutes with pain < 4/10 LTG Duration 06/28/20 One Impairment Pt does not have an appropriate HEP Short Term Goal (STG) Pt to be independent and compliant with an appropriate HEP STG Duration Met Assessment Summary Assessment Tx focused on glut with core balance facilitation today with good self corrections for level pelvis and knee alignment to allow for proper form and tolerated increase resistance to L3 band. No pain reported getting a good work out soreness in her hips. Physical Therapy Plan Frequency and Duration Frequency of Treatment 2x/Week Duration of Treatment 10 weeks Plan of Care Start Date 04/28/20 Plan of Care End Date 07/07/20 Therapeutic Interventions Therapeutic Interventions Aquatic Therapy,Home Exercise Program,Joint Mobilizations, Manual Therapy,Patient/ Caregiver Education,Self-Care/ Home Management,Soft Tissue Mobilization,Therapeutic Activities,Therapeutic Exercises Modalities Cold Pack/Ice Massage,Electric Stimulation,Hot Packs, Traction- Mechanical, Ultrasound Other Referrals/Consults Referrals/Consults Recommended Pt would likely benefit from massage/MFR Next Visit Focus/Plan Next Note Type Treatment Note Next Visit Plan Assess response to core and hip abd strengthening last tx. Continue per PT POC: Core/low back strengthening for stability, STM.
--- NOTE | 2020-05-21 09:00 | PT.OTN ---
Current Diagnoses Osteoarthritis of hip, unspecified (05/21/20) Pain in right hip (05/21/20) Pain in left hip (05/21/20) Intervertebral disc disorders with myelopathy, lumbar region (05/21/20) Lumbago with sciatica, unspecified side (05/21/20) Physical Therapy Treatment Note PT-OP-A Visit Information Start: 08/21/19 15:30 Freq: Status: Active Protocol: Document 05/21/20 08:26 SP (Rec: 05/21/20 09:00 SP [id number]) Out-Patient Physical Therapy Visit Information Visit Information Visit Type Treatment Note Visit Note Pt 11 min late for appt today. Visit Start Time 08:26 Visit Stop Time 09:00 Total Visit Minutes 34 Visit Number 47 Number of [employer] MANAGER Visits 4 PT-OP-B Current Condition Start: 08/21/19 15:30 Freq: Status: Active Protocol: Document 08/21/19 15:30 DCW (Rec: 08/21/19 17:32 DCW [id number]) Current Condition History of Current Condition Onset Date Multi-year history Current Complaints low back and bilateral hip pain History of Current Condition Pt is a 58 year old female with a long history of low back and hip pain. Pt reports she has twice had a partial dislocation of her right hip, happening once in the 90s and once in the last decade. 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 Pt notes that this caused so much degeneration in my knees that when I was in my 30s, I couldn't go up and down stairs. Pt reports that since beginning Glucosamine and chondroitin, this has faded, and she is more mobile. She has recently been suffering an increase in bilateral posterior hip pain, especially with extended sitting, or trying to stand up after extended sitting. Pt also reports burning in the back of her hips, L>R. Pt reports that her PCP recently increased her Celebrex, which helped some, but just this past weekend, took a ferry to [place], and after sitting/ lying down for the trip, could barely walk off the ferry she was so stiff and sore. She is currently feeling improved, but everything just feels so tight. Prior Treatments and Tests Hip x-ray: IMPRESSION: Mild bilateral hip degeneration, probably age-appropriate. If the patient's pain or other symptoms persist, consider further evaluation with MRI. Per: Danny Mccullough M.D. on 08/2019 Lumbar x-ray: IMPRESSION: Multilevel moderate lumbar spondylosis and facet arthropathy. Levoscoliosis. Per: Danny Mccullough M.D. on 08/2019 Future Testing and Treatments Planned Possible further evaluation with MRI, per radiologist report PT-OP-C Subjective Start: 08/21/19 15:30 Freq: Status: Active Protocol: Document 05/21/20 08:26 SP (Rec: 05/21/20 09:00 SP [id number]) OP-PT Subjective Patient Comments Patient Comments Pt reported stiff today, didn' t to stretching or any activity pre PT today and going for walk with friend's after PT. PT-OP-F Manual Assessment Start: 08/21/19 15:30 Freq: Status: Active Protocol: Document 04/28/20 10:30 DCW (Rec: 04/28/20 13:39 DCW [id number]) Manual Assessments Joint Mobility Assessment Joint Mobility Assessment Hypomobility throughout lumbar spine. Hypermobility of left tibiotalar joint PT-OP-G Mobility & Gait Start: 11/12/19 17:28 Freq: Status: Active Protocol: Document 04/28/20 10:30 DCW (Rec: 04/28/20 13:39 DCW [id number]) OP Gait Assessment Comments Gait Comments Left lateral trunk flexion still present, reduced compared to last assessment. PT-OP-K Range of Motion Start: 08/21/19 15:30 Freq: Status: Active Protocol: Document 04/28/20 10:30 DCW (Rec: 04/28/20 13:39 DCW [id number]) Lumbar Spine Range of Motion Lumbar Spine Active Degrees Testing Position Standing Flexion 65 Extension 12 ROM Limitations Soft Tissue Tightness,Muscle Tone,Pain Comments Improved lumbar mobility, still overuse of Thoracic spine mobility in flexion and extension PT-OP-L Special Tests Start: 08/21/19 15:30 Freq: Status: Active Protocol: Document 04/28/20 10:30 DCW (Rec: 04/28/20 13:39 DCW [id number]) Special Tests Hip Special Tests RAMONA Test Results Negative Other Special Tests Special Tests Accessory muscle breathing greatly reduced, only present with disctracted during heavy exercise PT-OP-M Strength Start: 08/21/19 15:30 Freq: Status: Active Protocol: Document 04/28/20 10:30 DCW (Rec: 04/28/20 13:39 DCW [id number]) Hip Strength Hip Manual Muscle Testing Bilateral Abduction 4- Good- Adduction 4- Good- PT-OP-Q Treatments Start: 08/21/19 15:30 Freq: Status: Active Protocol: Document 05/21/20 08:26 SP (Rec: 05/21/20 09:00 SP [id number]) Gym Equipment Therapeutic Ball prone SB hip abd/ext press Exercise Details hip ext/ abd squeeze off elbows Ball Size/Color red 55cm Body Position Prone Reps/Duration 3x10 Comments cued PPT awareness and core/ glut facilitation Bridging /c HS curl Exercise Details Bridging /c HS curl Ball Size/Color Red - 55 cm Body Position Supine Reps/Duration x10 Comments Cued BUE support on floor at side, neutral pelvis awareness and slow controlled lift and HS curl con/eccentric for core stability support. Resisted Rotation Exercise Details Resisted trunk rotation Ball Size/Color Green - 65 cm Lv 3 T-band Body Position Sitting Reps/Duration x20 R and L Comments cued slow rotations, pause end range then controlled eccentric return start pos . Therapeutic Exercises Supine Exercises piriformis Side bilateral Reps/Minutes 30 secs hold Bryce stretch Supine Exercise Name PT assisted Side bilateral Reps/Minutes 20 secs hold x4 trans ab Supine Exercise Name core march Side bilateral Reps/Minutes 3x5 Standing Exercises hip flex lunge stretch Standing Exercise Name Rec Femoris and TFL Side right Reps/Minutes 3 min Manual Therapy Treatment Soft Tissue Mobilization Piriformis Body Location R Piriformis Mobilization Type Sustained Pressure Intensity/Depth Deep QL Body Location R QL Mobilization Type Sustained Pressure,Trigger Point Release Intensity/Depth Deep Body Position Prone Psoas Body Location R psoas and TFL Mobilization Type Cross-Friction,Sustained Pressure Intensity/Depth Deep Body Position Supine PT-OP-T Assessment and Plan Start: 08/21/19 15:30 Freq: Status: Active Protocol: Document 05/21/20 08:26 SP (Rec: 05/21/20 09:00 SP [id number]) Physical Therapy Assessment Goals Three Impairment Pt unable to go out dancing with her Cold [place] Goal (LTG) Pt to tolerate dancing for 45 minutes without increasing her pain LTG Duration 07/06 - improving Two Impairment Pt unable to sit in her car longer than 30 minutes without moderate pain Jail Goal (LTG) Pt to tolerate sitting in her car for 60 minutes with pain < 4/10 LTG Duration 06/28/20 One Impairment Pt does not have an appropriate HEP Short Term Goal (STG) Pt to be independent and compliant with an appropriate HEP STG Duration Met Assessment Summary Assessment Pt arrived with LE ext and hip flex R>L reporting stiffness. Tx focused on core facilitation and R hip ext and ER ROM using manual STMs, stretching and strengthening facilitation with positive results to ther ex today. Pt stated felt better end of tx. Pt will be doing a longer commute for new position soon and wanting small movements/ exercises can do to make her feel better and have longer lasting relief. Physical Therapy Plan Frequency and Duration Frequency of Treatment 2x/Week Duration of Treatment 10 weeks Plan of Care Start Date 04/28/20 Plan of Care End Date 07/07/20 Therapeutic Interventions Therapeutic Interventions Aquatic Therapy,Home Exercise Program,Joint Mobilizations, Manual Therapy,Patient/ Caregiver Education,Self-Care/ Home Management,Soft Tissue Mobilization,Therapeutic Activities,Therapeutic Exercises Modalities Cold Pack/Ice Massage,Electric Stimulation,Hot Packs, Traction- Mechanical, Ultrasound Other Referrals/Consults Referrals/Consults Recommended Pt would likely benefit from massage/MFR Next Visit Focus/Plan Next Note Type Treatment Note Next Visit Plan Assess response to manual, stretching and core/hip abd strengthening last tx. Continue per PT POC: Core/low back strengthening for stability, STM.
--- NOTE | 2020-05-28 12:50 | PT.OTN ---
Current Diagnoses Osteoarthritis of hip, unspecified (05/28/20) Pain in right hip (05/28/20) Pain in left hip (05/28/20) Intervertebral disc disorders with myelopathy, lumbar region (05/28/20) Lumbago with sciatica, unspecified side (05/28/20) Physical Therapy Treatment Note PT-OP-A Visit Information Start: 08/21/19 15:30 Freq: Status: Active Protocol: Document 05/28/20 12:05 DCW (Rec: 05/28/20 12:50 DCW [id number]) Out-Patient Physical Therapy Visit Information Visit Information Visit Type Treatment Note Visit Start Time 12:05 Visit Stop Time 12:45 Total Visit Minutes 40 Visit Number 48 Number of RAILROAD TRACK REPAIR SUPERVISOR Visits 0 PT-OP-B Current Condition Start: 08/21/19 15:30 Freq: Status: Active Protocol: Document 08/21/19 15:30 DCW (Rec: 08/21/19 17:32 DCW [id number]) Current Condition History of Current Condition Onset Date Multi-year history Current Complaints low back and bilateral hip pain History of Current Condition Pt is a 58 year old female with a long history of low back and hip pain. Pt reports she has twice had a partial dislocation of her right hip, happening once in the 90s and once in the last decade. 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 Pt notes that this caused so much degeneration in my knees that when I was in my 30s, I couldn't go up and down stairs. Pt reports that since beginning Glucosamine and chondroitin, this has faded, and she is more mobile. She has recently been suffering an increase in bilateral posterior hip pain, especially with extended sitting, or trying to stand up after extended sitting. Pt also reports burning in the back of her hips, L>R. Pt reports that her PCP recently increased her Celebrex, which helped some, but just this past weekend, took a ferry to [place], and after sitting/ lying down for the trip, could barely walk off the ferry she was so stiff and sore. She is currently feeling improved, but everything just feels so tight. Prior Treatments and Tests Hip x-ray: IMPRESSION: Mild bilateral hip degeneration, probably age-appropriate. If the patient's pain or other symptoms persist, consider further evaluation with MRI. Per: Danny Mccullough M.D. on 08/2019 Lumbar x-ray: IMPRESSION: Multilevel moderate lumbar spondylosis and facet arthropathy. Levoscoliosis. Per: Danny Mccullough M.D. on 08/2019 Future Testing and Treatments Planned Possible further evaluation with MRI, per radiologist report PT-OP-C Subjective Start: 08/21/19 15:30 Freq: Status: Active Protocol: Document 05/28/20 12:05 DCW (Rec: 05/28/20 12:50 DCW [id number]) OP-PT Subjective Patient Comments Patient Comments Pt reports it was a rough morning, I had more trouble getting moving today. PT-OP-F Manual Assessment Start: 08/21/19 15:30 Freq: Status: Active Protocol: Document 04/28/20 10:30 DCW (Rec: 04/28/20 13:39 DCW [id number]) Manual Assessments Joint Mobility Assessment Joint Mobility Assessment Hypomobility throughout lumbar spine. Hypermobility of left tibiotalar joint PT-OP-G Mobility & Gait Start: 11/12/19 17:28 Freq: Status: Active Protocol: Document 04/28/20 10:30 DCW (Rec: 04/28/20 13:39 DCW [id number]) OP Gait Assessment Comments Gait Comments Left lateral trunk flexion still present, reduced compared to last assessment. PT-OP-K Range of Motion Start: 08/21/19 15:30 Freq: Status: Active Protocol: Document 04/28/20 10:30 DCW (Rec: 04/28/20 13:39 DCW [id number]) Lumbar Spine Range of Motion Lumbar Spine Active Degrees Testing Position Standing Flexion 65 Extension 12 ROM Limitations Soft Tissue Tightness,Muscle Tone,Pain Comments Improved lumbar mobility, still overuse of Thoracic spine mobility in flexion and extension PT-OP-L Special Tests Start: 08/21/19 15:30 Freq: Status: Active Protocol: Document 04/28/20 10:30 DCW (Rec: 04/28/20 13:39 DCW [id number]) Special Tests Hip Special Tests RAMONA Test Results Negative Other Special Tests Special Tests Accessory muscle breathing greatly reduced, only present with disctracted during heavy exercise PT-OP-M Strength Start: 08/21/19 15:30 Freq: Status: Active Protocol: Document 04/28/20 10:30 DCW (Rec: 04/28/20 13:39 DCW [id number]) Hip Strength Hip Manual Muscle Testing Bilateral Abduction 4- Good- Adduction 4- Good- PT-OP-Q Treatments Start: 08/21/19 15:30 Freq: Status: Active Protocol: Document 05/28/20 12:05 DCW (Rec: 05/28/20 12:50 DCW [id number]) Gym Equipment Therapeutic Ball Pelvic circles Exercise Details Pelvic circles, pelvic tilts Ball Size/Color Green - 65 cm Body Position Sitting Resisted Rotation Exercise Details Resisted trunk rotation Ball Size/Color Green - 65 cm Lv 3 T-band Body Position Sitting Reps/Duration x20 R and L Comments cued slow rotations, pause end range then controlled eccentric return start pos . Therapeutic Exercises Supine Exercises piriformis Side bilateral Reps/Minutes 30 secs hold Bryce stretch Supine Exercise Name PT assisted Side bilateral Reps/Minutes 20 secs hold x4 Manual Therapy Treatment Soft Tissue Mobilization Piriformis Body Location B Piriformis Mobilization Type Sustained Pressure Intensity/Depth Deep QL Body Location B QL Mobilization Type Sustained Pressure,Trigger Point Release Intensity/Depth Deep Body Position Prone Psoas Body Location B psoas and TFL Mobilization Type Cross-Friction,Sustained Pressure Intensity/Depth Deep Body Position Supine Joint Mobilizations SI Joint L SI Direction P->A Grade III PT-OP-T Assessment and Plan Start: 08/21/19 15:30 Freq: Status: Active Protocol: Document 05/28/20 12:05 DCW (Rec: 05/28/20 12:50 DCW [id number]) Physical Therapy Assessment Impairments Impairments Activity Tolerance,Functional Activities,Pain,ROM,Strength, Tone Goals Three Impairment Pt unable to go out dancing with her Heat Treater Apprentice Goal (LTG) Pt to tolerate dancing for 45 minutes without increasing her pain LTG Duration 07/06 - improving Two Impairment Pt unable to sit in her car longer than 30 minutes without moderate pain Heat Treater Apprentice Goal (LTG) Pt to tolerate sitting in her car for 60 minutes with pain < 4/10 LTG Duration 06/28/20 One Impairment Pt does not have an appropriate HEP Short Term Goal (STG) Pt to be independent and compliant with an appropriate HEP STG Duration Met Assessment Summary Assessment Pt doing well by end of session today, loosened up through low back and hips. Pt had a slight tilt in sacrum today, adjusted well with mobilization of left SI. Physical Therapy Plan Frequency and Duration Frequency of Treatment 2x/Week Duration of Treatment 10 weeks Plan of Care Start Date 04/28/20 Plan of Care End Date 07/07/20 Therapeutic Interventions Therapeutic Interventions Aquatic Therapy,Home Exercise Program,Joint Mobilizations, Manual Therapy,Patient/ Caregiver Education,Self-Care/ Home Management,Soft Tissue Mobilization,Therapeutic Activities,Therapeutic Exercises Modalities Cold Pack/Ice Massage,Electric Stimulation,Hot Packs, Traction- Mechanical, Ultrasound Next Visit Focus/Plan Next Note Type Treatment Note Next Visit Plan Assess response to SI mobs. Continue per PT POC: Core/low back strengthening for stability, STM.
--- NOTE | 2020-06-02 16:43 | PT.OTN ---
Current Diagnoses Osteoarthritis of hip, unspecified (05/28/20) Pain in right hip (05/28/20) Pain in left hip (05/28/20) Intervertebral disc disorders with myelopathy, lumbar region (05/28/20) Lumbago with sciatica, unspecified side (05/28/20) Physical Therapy Treatment Note PT-OP-A Visit Information Start: 08/21/19 15:30 Freq: Status: Active Protocol: Document 06/02/20 16:00 DCW (Rec: 06/02/20 16:43 DCW [id number]) Out-Patient Physical Therapy Visit Information Visit Information Visit Type Treatment Note Visit Start Time 16:00 Visit Stop Time 16:45 Total Visit Minutes 45 Visit Number 49 Number of ENGINEERING MANAGER Visits 0 PT-OP-B Current Condition Start: 08/21/19 15:30 Freq: Status: Active Protocol: Document 08/21/19 15:30 DCW (Rec: 08/21/19 17:32 DCW [id number]) Current Condition History of Current Condition Onset Date Multi-year history Current Complaints low back and bilateral hip pain History of Current Condition Pt is a 58 year old female with a long history of low back and hip pain. Pt reports she has twice had a partial dislocation of her right hip, happening once in the 90s and once in the last decade. 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 Pt notes that this caused so much degeneration in my knees that when I was in my 30s, I couldn't go up and down stairs. Pt reports that since beginning Glucosamine and chondroitin, this has faded, and she is more mobile. She has recently been suffering an increase in bilateral posterior hip pain, especially with extended sitting, or trying to stand up after extended sitting. Pt also reports burning in the back of her hips, L>R. Pt reports that her PCP recently increased her Celebrex, which helped some, but just this past weekend, took a ferry to [place], and after sitting/ lying down for the trip, could barely walk off the ferry she was so stiff and sore. She is currently feeling improved, but everything just feels so tight. Prior Treatments and Tests Hip x-ray: IMPRESSION: Mild bilateral hip degeneration, probably age-appropriate. If the patient's pain or other symptoms persist, consider further evaluation with MRI. Per: Danny Mccullough M.D. on 08/2019 Lumbar x-ray: IMPRESSION: Multilevel moderate lumbar spondylosis and facet arthropathy. Levoscoliosis. Per: Danny Mccullough M.D. on 08/2019 Future Testing and Treatments Planned Possible further evaluation with MRI, per radiologist report PT-OP-C Subjective Start: 08/21/19 15:30 Freq: Status: Active Protocol: Document 06/02/20 16:00 DCW (Rec: 06/02/20 16:43 DCW [id number]) OP-PT Subjective Patient Comments Patient Comments I've been a little achy. But I did stop at the [facility] place, and got some cream, and really , within about 20 minutes I felt a lot better. PT-OP-F Manual Assessment Start: 08/21/19 15:30 Freq: Status: Active Protocol: Document 04/28/20 10:30 DCW (Rec: 04/28/20 13:39 DCW [id number]) Manual Assessments Joint Mobility Assessment Joint Mobility Assessment Hypomobility throughout lumbar spine. Hypermobility of left tibiotalar joint PT-OP-G Mobility & Gait Start: 11/12/19 17:28 Freq: Status: Active Protocol: Document 04/28/20 10:30 DCW (Rec: 04/28/20 13:39 DCW [id number]) OP Gait Assessment Comments Gait Comments Left lateral trunk flexion still present, reduced compared to last assessment. PT-OP-K Range of Motion Start: 08/21/19 15:30 Freq: Status: Active Protocol: Document 04/28/20 10:30 DCW (Rec: 04/28/20 13:39 DCW [id number]) Lumbar Spine Range of Motion Lumbar Spine Active Degrees Testing Position Standing Flexion 65 Extension 12 ROM Limitations Soft Tissue Tightness,Muscle Tone,Pain Comments Improved lumbar mobility, still overuse of Thoracic spine mobility in flexion and extension PT-OP-L Special Tests Start: 08/21/19 15:30 Freq: Status: Active Protocol: Document 04/28/20 10:30 DCW (Rec: 04/28/20 13:39 DCW [id number]) Special Tests Hip Special Tests RAMONA Test Results Negative Other Special Tests Special Tests Accessory muscle breathing greatly reduced, only present with disctracted during heavy exercise PT-OP-M Strength Start: 08/21/19 15:30 Freq: Status: Active Protocol: Document 04/28/20 10:30 DCW (Rec: 04/28/20 13:39 DCW [id number]) Hip Strength Hip Manual Muscle Testing Bilateral Abduction 4- Good- Adduction 4- Good- PT-OP-Q Treatments Start: 08/21/19 15:30 Freq: Status: Active Protocol: Document 06/02/20 16:00 DCW (Rec: 06/02/20 16:43 DCW [id number]) Cardio Equipment Bicycle (Upright) Duration (Minutes) 4 Resistance 8 Seat Position 4 Gym Equipment Therapeutic Ball Pelvic circles Exercise Details Pelvic circles, pelvic tilts Ball Size/Color Green - 65 cm Body Position Sitting Bridging /c HS curl Exercise Details Bridging /c HS curl Ball Size/Color Red - 55 cm Body Position Supine Reps/Duration x10 Comments Cued BUE support on floor at side, neutral pelvis awareness and slow controlled lift and HS curl con/eccentric for core stability support. Manual Therapy Treatment Soft Tissue Mobilization Piriformis Body Location B Piriformis Mobilization Type Sustained Pressure Intensity/Depth Deep QL Body Location B QL Mobilization Type Sustained Pressure,Trigger Point Release Intensity/Depth Deep Body Position Prone Psoas Body Location B psoas and TFL Mobilization Type Cross-Friction,Sustained Pressure Intensity/Depth Deep Body Position Supine Joint Mobilizations SI Joint L SI Direction P->A Grade III PT-OP-T Assessment and Plan Start: 08/21/19 15:30 Freq: Status: Active Protocol: Document 06/02/20 16:00 DCW (Rec: 06/02/20 16:43 DCW [id number]) Physical Therapy Assessment Impairments Impairments Activity Tolerance,Functional Activities,Pain,ROM,Strength, Tone Goals Three Impairment Pt unable to go out dancing with her Dicer Machine Operator Goal (LTG) Pt to tolerate dancing for 45 minutes without increasing her pain LTG Duration 06/28/20 - improving Two Impairment Pt unable to sit in her car longer than 30 minutes without moderate pain Dicer Machine Operator Goal (LTG) Pt to tolerate sitting in her car for 60 minutes with pain < 4/10 LTG Duration 06/28/20 One Impairment Pt does not have an appropriate HEP Short Term Goal (STG) Pt to be independent and compliant with an appropriate HEP STG Duration Met Assessment Summary Assessment Pt again has been feeling increased stiffness, but seems to benefit from STM/Manual therapeutic intervention. Pt happy with results of her recent trial of CBD cream. Physical Therapy Plan Frequency and Duration Frequency of Treatment 2x/Week Duration of Treatment 10 weeks Plan of Care Start Date 04/28/20 Plan of Care End Date 07/07/20 Therapeutic Interventions Therapeutic Interventions Aquatic Therapy,Home Exercise Program,Joint Mobilizations, Manual Therapy,Patient/ Caregiver Education,Self-Care/ Home Management,Soft Tissue Mobilization,Therapeutic Activities,Therapeutic Exercises Modalities Cold Pack/Ice Massage,Electric Stimulation,Hot Packs, Traction- Mechanical, Ultrasound Next Visit Focus/Plan Next Note Type Treatment Note Next Visit Plan Continue per PT POC: Core/low back strengthening for stability, STM.
--- NOTE | 2020-06-07 12:45 | PT.OTN ---
Current Diagnoses Osteoarthritis of hip, unspecified (06/07/20) Pain in right hip (06/07/20) Pain in left hip (06/07/20) Intervertebral disc disorders with myelopathy, lumbar region (06/07/20) Lumbago with sciatica, unspecified side (06/07/20) Physical Therapy Treatment Note PT-OP-A Visit Information Start: 08/21/19 15:30 Freq: Status: Active Protocol: Document 06/07/20 12:05 DCW (Rec: 06/07/20 12:44 DCW [id number]) Out-Patient Physical Therapy Visit Information Visit Information Visit Type Treatment Note Visit Start Time 12:05 Visit Stop Time 12:45 Total Visit Minutes 40 Visit Number 50 Number of HOUSEKEEPING LAUNDRY WORKER Visits 0 Evaluation Information Evaluation Date 08/21/19 PT-OP-B Current Condition Start: 08/21/19 15:30 Freq: Status: Active Protocol: Document 08/21/19 15:30 DCW (Rec: 08/21/19 17:32 DCW [id number]) Current Condition History of Current Condition Onset Date Multi-year history Current Complaints low back and bilateral hip pain History of Current Condition Pt is a 58 year old female with a long history of low back and hip pain. Pt reports she has twice had a partial dislocation of her right hip, happening once in the 90s and once in the last decade. 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 Pt notes that this caused so much degeneration in my knees that when I was in my 30s, I couldn't go up and down stairs. Pt reports that since beginning Glucosamine and chondroitin, this has faded, and she is more mobile. She has recently been suffering an increase in bilateral posterior hip pain, especially with extended sitting, or trying to stand up after extended sitting. Pt also reports burning in the back of her hips, L>R. Pt reports that her PCP recently increased her Celebrex, which helped some, but just this past weekend, took a ferry to [place], and after sitting/ lying down for the trip, could barely walk off the ferry she was so stiff and sore. She is currently feeling improved, but everything just feels so tight. Prior Treatments and Tests Hip x-ray: IMPRESSION: Mild bilateral hip degeneration, probably age-appropriate. If the patient's pain or other symptoms persist, consider further evaluation with MRI. Per: Danny Mccullough M.D. on 08/2019 Lumbar x-ray: IMPRESSION: Multilevel moderate lumbar spondylosis and facet arthropathy. Levoscoliosis. Per: Danny Mccullough M.D. on 08/2019 Future Testing and Treatments Planned Possible further evaluation with MRI, per radiologist report PT-OP-C Subjective Start: 08/21/19 15:30 Freq: Status: Active Protocol: Document 06/07/20 12:05 DCW (Rec: 06/07/20 12:44 DCW [id number]) OP-PT Subjective Patient Comments Patient Comments Pt reports she has already gotten in an hour of stretching/exercise today, and is feeling pretty good. PT-OP-F Manual Assessment Start: 08/21/19 15:30 Freq: Status: Active Protocol: Document 04/28/20 10:30 DCW (Rec: 04/28/20 13:39 DCW [id number]) Manual Assessments Joint Mobility Assessment Joint Mobility Assessment Hypomobility throughout lumbar spine. Hypermobility of left tibiotalar joint PT-OP-G Mobility & Gait Start: 11/12/19 17:28 Freq: Status: Active Protocol: Document 04/28/20 10:30 DCW (Rec: 04/28/20 13:39 DCW [id number]) OP Gait Assessment Comments Gait Comments Left lateral trunk flexion still present, reduced compared to last assessment. PT-OP-K Range of Motion Start: 08/21/19 15:30 Freq: Status: Active Protocol: Document 04/28/20 10:30 DCW (Rec: 04/28/20 13:39 DCW [id number]) Lumbar Spine Range of Motion Lumbar Spine Active Degrees Testing Position Standing Flexion 65 Extension 12 ROM Limitations Soft Tissue Tightness,Muscle Tone,Pain Comments Improved lumbar mobility, still overuse of Thoracic spine mobility in flexion and extension PT-OP-L Special Tests Start: 08/21/19 15:30 Freq: Status: Active Protocol: Document 04/28/20 10:30 DCW (Rec: 04/28/20 13:39 DCW [id number]) Special Tests Hip Special Tests RAMONA Test Results Negative Other Special Tests Special Tests Accessory muscle breathing greatly reduced, only present with disctracted during heavy exercise PT-OP-M Strength Start: 08/21/19 15:30 Freq: Status: Active Protocol: Document 04/28/20 10:30 DCW (Rec: 04/28/20 13:39 DCW [id number]) Hip Strength Hip Manual Muscle Testing Bilateral Abduction 4- Good- Adduction 4- Good- PT-OP-Q Treatments Start: 08/21/19 15:30 Freq: Status: Active Protocol: Document 06/07/20 12:05 DCW (Rec: 06/07/20 12:44 DCW [id number]) Therapeutic Exercises Standing Exercises hip flex lunge stretch Standing Exercise Name Lunge onto BOSU Side bilateral hip elevation Standing Exercise Name Hip hiking on step Side bilateral Manual Therapy Treatment Soft Tissue Mobilization Piriformis Body Location B Piriformis Mobilization Type Sustained Pressure Intensity/Depth Deep QL Body Location B QL Mobilization Type Sustained Pressure,Trigger Point Release Intensity/Depth Deep Body Position Prone Psoas Body Location B psoas and TFL Mobilization Type Cross-Friction,Sustained Pressure Intensity/Depth Deep Body Position Supine Joint Mobilizations SI Joint L SI Direction P->A Grade III PT-OP-T Assessment and Plan Start: 08/21/19 15:30 Freq: Status: Active Protocol: Document 06/07/20 12:05 DCW (Rec: 06/07/20 12:44 DCW [id number]) Physical Therapy Assessment Impairments Impairments Activity Tolerance,Functional Activities,Pain,ROM,Strength, Tone Goals Three Impairment Pt unable to go out dancing with her Penitentiary Goal (LTG) Pt to tolerate dancing for 45 minutes without increasing her pain LTG Duration 06/28/20 - improving Two Impairment Pt unable to sit in her car longer than 30 minutes without moderate pain Dowel Pointer Goal (LTG) Pt to tolerate sitting in her car for 60 minutes with pain < 4/10 LTG Duration 06/28/20 One Impairment Pt does not have an appropriate HEP Short Term Goal (STG) Pt to be independent and compliant with an appropriate HEP STG Duration Met Assessment Summary Assessment Pt continues to feel like she is progressing, sleep has been improving, is still fairly consistent with HEP, especially stretching when first getting up in the morning. Physical Therapy Plan Frequency and Duration Frequency of Treatment 2x/Week Duration of Treatment 10 weeks Plan of Care Start Date 04/28/20 Plan of Care End Date 07/07/20 Therapeutic Interventions Therapeutic Interventions Aquatic Therapy,Home Exercise Program,Joint Mobilizations, Manual Therapy,Patient/ Caregiver Education,Self-Care/ Home Management,Soft Tissue Mobilization,Therapeutic Activities,Therapeutic Exercises Modalities Cold Pack/Ice Massage,Electric Stimulation,Hot Packs, Traction- Mechanical, Ultrasound Next Visit Focus/Plan Next Note Type Treatment Note Next Visit Plan Continue per PT POC: Core/low back strengthening for stability, STM.
--- NOTE | 2020-06-11 11:18 | PT.OTN ---
Current Diagnoses Osteoarthritis of hip, unspecified (06/11/20) Pain in right hip (06/11/20) Pain in left hip (06/11/20) Intervertebral disc disorders with myelopathy, lumbar region (06/11/20) Lumbago with sciatica, unspecified side (06/11/20) Physical Therapy Treatment Note PT-OP-A Visit Information Start: 08/21/19 15:30 Freq: Status: Active Protocol: Document 06/11/20 10:30 DCW (Rec: 06/11/20 11:18 DCW [id number]) Out-Patient Physical Therapy Visit Information Visit Information Visit Type Treatment Note Visit Start Time 10:30 Visit Stop Time 11:15 Total Visit Minutes 45 Visit Number 51 Number of DISTRIBUTION TRANSFORMER ASSEMBLER Visits 0 Evaluation Information Evaluation Date 08/21/19 PT-OP-B Current Condition Start: 08/21/19 15:30 Freq: Status: Active Protocol: Document 08/21/19 15:30 DCW (Rec: 08/21/19 17:32 DCW [id number]) Current Condition History of Current Condition Onset Date Multi-year history Current Complaints low back and bilateral hip pain History of Current Condition Pt is a 58 year old female with a long history of low back and hip pain. Pt reports she has twice had a partial dislocation of her right hip, happening once in the 90s and once in the last decade. 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 Pt notes that this caused so much degeneration in my knees that when I was in my 30s, I couldn't go up and down stairs. Pt reports that since beginning Glucosamine and chondroitin, this has faded, and she is more mobile. She has recently been suffering an increase in bilateral posterior hip pain, especially with extended sitting, or trying to stand up after extended sitting. Pt also reports burning in the back of her hips, L>R. Pt reports that her PCP recently increased her Celebrex, which helped some, but just this past weekend, took a ferry to [place], and after sitting/ lying down for the trip, could barely walk off the ferry she was so stiff and sore. She is currently feeling improved, but everything just feels so tight. Prior Treatments and Tests Hip x-ray: IMPRESSION: Mild bilateral hip degeneration, probably age-appropriate. If the patient's pain or other symptoms persist, consider further evaluation with MRI. Per: Danny Mccullough M.D. on 08/2019 Lumbar x-ray: IMPRESSION: Multilevel moderate lumbar spondylosis and facet arthropathy. Levoscoliosis. Per: Danny Mccullough M.D. on 08/2019 Future Testing and Treatments Planned Possible further evaluation with MRI, per radiologist report PT-OP-C Subjective Start: 08/21/19 15:30 Freq: Status: Active Protocol: Document 06/11/20 10:30 DCW (Rec: 06/11/20 11:18 DCW [id number]) OP-PT Subjective Patient Comments Patient Comments I did my exercises this week, so I'm feeling pretty good. PT-OP-F Manual Assessment Start: 08/21/19 15:30 Freq: Status: Active Protocol: Document 04/28/20 10:30 DCW (Rec: 04/28/20 13:39 DCW [id number]) Manual Assessments Joint Mobility Assessment Joint Mobility Assessment Hypomobility throughout lumbar spine. Hypermobility of left tibiotalar joint PT-OP-G Mobility & Gait Start: 11/12/19 17:28 Freq: Status: Active Protocol: Document 04/28/20 10:30 DCW (Rec: 04/28/20 13:39 DCW [id number]) OP Gait Assessment Comments Gait Comments Left lateral trunk flexion still present, reduced compared to last assessment. PT-OP-K Range of Motion Start: 08/21/19 15:30 Freq: Status: Active Protocol: Document 04/28/20 10:30 DCW (Rec: 04/28/20 13:39 DCW [id number]) Lumbar Spine Range of Motion Lumbar Spine Active Degrees Testing Position Standing Flexion 65 Extension 12 ROM Limitations Soft Tissue Tightness,Muscle Tone,Pain Comments Improved lumbar mobility, still overuse of Thoracic spine mobility in flexion and extension PT-OP-L Special Tests Start: 08/21/19 15:30 Freq: Status: Active Protocol: Document 04/28/20 10:30 DCW (Rec: 04/28/20 13:39 DCW [id number]) Special Tests Hip Special Tests RAMONA Test Results Negative Other Special Tests Special Tests Accessory muscle breathing greatly reduced, only present with disctracted during heavy exercise PT-OP-M Strength Start: 08/21/19 15:30 Freq: Status: Active Protocol: Document 04/28/20 10:30 DCW (Rec: 04/28/20 13:39 DCW [id number]) Hip Strength Hip Manual Muscle Testing Bilateral Abduction 4- Good- Adduction 4- Good- PT-OP-Q Treatments Start: 08/21/19 15:30 Freq: Status: Active Protocol: Document 06/11/20 10:30 DCW (Rec: 06/11/20 11:18 DCW [id number]) Gym Equipment Therapeutic Ball Pelvic circles Exercise Details Pelvic circles, pelvic tilts Ball Size/Color Green - 65 cm Body Position Sitting Resisted Rotation Exercise Details Resisted trunk rotation Ball Size/Color Green - 65 cm Lv 3 T-band Body Position Sitting Reps/Duration x20 R and L Comments cued slow rotations, pause end range then controlled eccentric return start pos . Therapeutic Activity Therapeutic Activity 1 Comments Amb using gait belt as a trial SI belt to determine if pt felt difference in stability Manual Therapy Treatment Soft Tissue Mobilization Piriformis Body Location B Piriformis Mobilization Type Sustained Pressure Intensity/Depth Deep QL Body Location B QL Mobilization Type Sustained Pressure,Trigger Point Release Intensity/Depth Deep Body Position Prone Psoas Body Location B psoas and TFL Mobilization Type Cross-Friction,Sustained Pressure Intensity/Depth Deep Body Position Supine Joint Mobilizations SI Joint L SI Direction P->A Grade III PT-OP-T Assessment and Plan Start: 08/21/19 15:30 Freq: Status: Active Protocol: Document 06/11/20 10:30 DCW (Rec: 06/11/20 11:18 DCW [id number]) Physical Therapy Assessment Impairments Impairments Activity Tolerance,Functional Activities,Pain,ROM,Strength, Tone Goals Three Impairment Pt unable to go out dancing with her Jail Goal (LTG) Pt to tolerate dancing for 45 minutes without increasing her pain LTG Duration 06/28/20 - improving Two Impairment Pt unable to sit in her car longer than 30 minutes without moderate pain Analytical Research Program Manager Goal (LTG) Pt to tolerate sitting in her car for 60 minutes with pain < 4/10 LTG Duration 06/28/20 One Impairment Pt does not have an appropriate HEP Short Term Goal (STG) Pt to be independent and compliant with an appropriate HEP STG Duration Met Assessment Summary Assessment Trial of gait belt today to mimic an SI belt, pt unsure, but felt she may be a little more stable. Pt concerned that there may be some other underlying issue that has not been discovered yet, because in may ways she has shown a lot of improvement, however has not seen all that much improvement in her soreness/ stiffness that originally brought her to PT. Wants to discuss possible MRI with her PCP. Physical Therapy Plan Frequency and Duration Frequency of Treatment 2x/Week Duration of Treatment 10 weeks Plan of Care Start Date 04/28/20 Plan of Care End Date 07/07/20 Therapeutic Interventions Therapeutic Interventions Aquatic Therapy,Home Exercise Program,Joint Mobilizations, Manual Therapy,Patient/ Caregiver Education,Self-Care/ Home Management,Soft Tissue Mobilization,Therapeutic Activities,Therapeutic Exercises Modalities Cold Pack/Ice Massage,Electric Stimulation,Hot Packs, Traction- Mechanical, Ultrasound Next Visit Focus/Plan Next Note Type Treatment Note Next Visit Plan Continue per PT POC: Core/low back strengthening for stability, STM.
--- NOTE | 2020-06-11 11:19 | PT.OTN ---
Current Diagnoses Osteoarthritis of hip, unspecified (06/11/20) Pain in right hip (06/11/20) Pain in left hip (06/11/20) Intervertebral disc disorders with myelopathy, lumbar region (06/11/20) Lumbago with sciatica, unspecified side (06/11/20) Physical Therapy Treatment Note PT-OP-A Visit Information Start: 08/21/19 15:30 Freq: Status: Active Protocol: Document 06/11/20 10:30 DCW (Rec: 06/11/20 11:18 DCW [id number]) Out-Patient Physical Therapy Visit Information Visit Information Visit Type Treatment Note Visit Start Time 10:30 Visit Stop Time 11:15 Total Visit Minutes 45 Visit Number 51 Number of DRILL PRESS TENDER Visits 0 Evaluation Information Evaluation Date 08/21/19 PT-OP-B Current Condition Start: 08/21/19 15:30 Freq: Status: Active Protocol: Document 08/21/19 15:30 DCW (Rec: 08/21/19 17:32 DCW [id number]) Current Condition History of Current Condition Onset Date Multi-year history Current Complaints low back and bilateral hip pain History of Current Condition Pt is a 58 year old female with a long history of low back and hip pain. Pt reports she has twice had a partial dislocation of her right hip, happening once in the 90s and once in the last decade. 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 Pt notes that this caused so much degeneration in my knees that when I was in my 30s, I couldn't go up and down stairs. Pt reports that since beginning Glucosamine and chondroitin, this has faded, and she is more mobile. She has recently been suffering an increase in bilateral posterior hip pain, especially with extended sitting, or trying to stand up after extended sitting. Pt also reports burning in the back of her hips, L>R. Pt reports that her PCP recently increased her Celebrex, which helped some, but just this past weekend, took a ferry to [place], and after sitting/ lying down for the trip, could barely walk off the ferry she was so stiff and sore. She is currently feeling improved, but everything just feels so tight. Prior Treatments and Tests Hip x-ray: IMPRESSION: Mild bilateral hip degeneration, probably age-appropriate. If the patient's pain or other symptoms persist, consider further evaluation with MRI. Per: Danny Mccullough M.D. on 08/2019 Lumbar x-ray: IMPRESSION: Multilevel moderate lumbar spondylosis and facet arthropathy. Levoscoliosis. Per: Danny Mccullough M.D. on 08/2019 Future Testing and Treatments Planned Possible further evaluation with MRI, per radiologist report PT-OP-C Subjective Start: 08/21/19 15:30 Freq: Status: Active Protocol: Document 06/11/20 10:30 DCW (Rec: 06/11/20 11:18 DCW [id number]) OP-PT Subjective Patient Comments Patient Comments I did my exercises this week, so I'm feeling pretty good. PT-OP-F Manual Assessment Start: 08/21/19 15:30 Freq: Status: Active Protocol: Document 04/28/20 10:30 DCW (Rec: 04/28/20 13:39 DCW [id number]) Manual Assessments Joint Mobility Assessment Joint Mobility Assessment Hypomobility throughout lumbar spine. Hypermobility of left tibiotalar joint PT-OP-G Mobility & Gait Start: 11/12/19 17:28 Freq: Status: Active Protocol: Document 04/28/20 10:30 DCW (Rec: 04/28/20 13:39 DCW [id number]) OP Gait Assessment Comments Gait Comments Left lateral trunk flexion still present, reduced compared to last assessment. PT-OP-K Range of Motion Start: 08/21/19 15:30 Freq: Status: Active Protocol: Document 04/28/20 10:30 DCW (Rec: 04/28/20 13:39 DCW [id number]) Lumbar Spine Range of Motion Lumbar Spine Active Degrees Testing Position Standing Flexion 65 Extension 12 ROM Limitations Soft Tissue Tightness,Muscle Tone,Pain Comments Improved lumbar mobility, still overuse of Thoracic spine mobility in flexion and extension PT-OP-L Special Tests Start: 08/21/19 15:30 Freq: Status: Active Protocol: Document 04/28/20 10:30 DCW (Rec: 04/28/20 13:39 DCW [id number]) Special Tests Hip Special Tests RAMONA Test Results Negative Other Special Tests Special Tests Accessory muscle breathing greatly reduced, only present with disctracted during heavy exercise PT-OP-M Strength Start: 08/21/19 15:30 Freq: Status: Active Protocol: Document 04/28/20 10:30 DCW (Rec: 04/28/20 13:39 DCW [id number]) Hip Strength Hip Manual Muscle Testing Bilateral Abduction 4- Good- Adduction 4- Good- PT-OP-Q Treatments Start: 08/21/19 15:30 Freq: Status: Active Protocol: Document 06/11/20 10:30 DCW (Rec: 06/11/20 11:18 DCW [id number]) Gym Equipment Therapeutic Ball Pelvic circles Exercise Details Pelvic circles, pelvic tilts Ball Size/Color Green - 65 cm Body Position Sitting Resisted Rotation Exercise Details Resisted trunk rotation Ball Size/Color Green - 65 cm Lv 3 T-band Body Position Sitting Reps/Duration x20 R and L Comments cued slow rotations, pause end range then controlled eccentric return start pos . Therapeutic Activity Therapeutic Activity 1 Comments Amb using gait belt as a trial SI belt to determine if pt felt difference in stability Manual Therapy Treatment Soft Tissue Mobilization Piriformis Body Location B Piriformis Mobilization Type Sustained Pressure Intensity/Depth Deep QL Body Location B QL Mobilization Type Sustained Pressure,Trigger Point Release Intensity/Depth Deep Body Position Prone Psoas Body Location B psoas and TFL Mobilization Type Cross-Friction,Sustained Pressure Intensity/Depth Deep Body Position Supine Joint Mobilizations SI Joint L SI Direction P->A Grade III PT-OP-T Assessment and Plan Start: 08/21/19 15:30 Freq: Status: Active Protocol: Document 06/11/20 10:30 DCW (Rec: 06/11/20 11:18 DCW [id number]) Physical Therapy Assessment Impairments Impairments Activity Tolerance,Functional Activities,Pain,ROM,Strength, Tone Goals Three Impairment Pt unable to go out dancing with her Halfway Goal (LTG) Pt to tolerate dancing for 45 minutes without increasing her pain LTG Duration 06/28/20 - improving Two Impairment Pt unable to sit in her car longer than 30 minutes without moderate pain Casting Coordinator Goal (LTG) Pt to tolerate sitting in her car for 60 minutes with pain < 4/10 LTG Duration 06/28/20 One Impairment Pt does not have an appropriate HEP Short Term Goal (STG) Pt to be independent and compliant with an appropriate HEP STG Duration Met Assessment Summary Assessment Trial of gait belt today to mimic an SI belt, pt unsure, but felt she may be a little more stable. Pt concerned that there may be some other underlying issue that has not been discovered yet, because in may ways she has shown a lot of improvement, however has not seen all that much improvement in her soreness/ stiffness that originally brought her to PT. Wants to discuss possible MRI with her PCP. Physical Therapy Plan Frequency and Duration Frequency of Treatment 2x/Week Duration of Treatment 10 weeks Plan of Care Start Date 04/28/20 Plan of Care End Date 07/07/20 Therapeutic Interventions Therapeutic Interventions Aquatic Therapy,Home Exercise Program,Joint Mobilizations, Manual Therapy,Patient/ Caregiver Education,Self-Care/ Home Management,Soft Tissue Mobilization,Therapeutic Activities,Therapeutic Exercises Modalities Cold Pack/Ice Massage,Electric Stimulation,Hot Packs, Traction- Mechanical, Ultrasound Next Visit Focus/Plan Next Note Type Treatment Note Next Visit Plan Continue per PT POC: Core/low back strengthening for stability, STM.
--- NOTE | 2020-06-15 09:48 | PT.OTN ---
Current Diagnoses Osteoarthritis of hip, unspecified (06/15/20) Pain in right hip (06/15/20) Pain in left hip (06/15/20) Intervertebral disc disorders with myelopathy, lumbar region (06/15/20) Lumbago with sciatica, unspecified side (06/15/20) Physical Therapy Treatment Note PT-OP-A Visit Information Start: 08/21/19 15:30 Freq: Status: Active Protocol: Document 06/15/20 09:06 SP (Rec: 06/15/20 13:02 SP [id number]) Out-Patient Physical Therapy Visit Information Visit Information Visit Type Treatment Note Visit Note Pt was 6 min late. Visit Start Time 09:06 Visit Stop Time 09:48 Total Visit Minutes 42 Visit Number 52 Number of DENTAL INTERN Visits 1 PT-OP-B Current Condition Start: 08/21/19 15:30 Freq: Status: Active Protocol: Document 08/21/19 15:30 DCW (Rec: 08/21/19 17:32 DCW [id number]) Current Condition History of Current Condition Onset Date Multi-year history Current Complaints low back and bilateral hip pain History of Current Condition Pt is a 58 year old female with a long history of low back and hip pain. Pt reports she has twice had a partial dislocation of her right hip, happening once in the 90s and once in the last decade. 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 Pt notes that this caused so much degeneration in my knees that when I was in my 30s, I couldn't go up and down stairs. Pt reports that since beginning Glucosamine and chondroitin, this has faded, and she is more mobile. She has recently been suffering an increase in bilateral posterior hip pain, especially with extended sitting, or trying to stand up after extended sitting. Pt also reports burning in the back of her hips, L>R. Pt reports that her PCP recently increased her Celebrex, which helped some, but just this past weekend, took a ferry to [place], and after sitting/ lying down for the trip, could barely walk off the ferry she was so stiff and sore. She is currently feeling improved, but everything just feels so tight. Prior Treatments and Tests Hip x-ray: IMPRESSION: Mild bilateral hip degeneration, probably age-appropriate. If the patient's pain or other symptoms persist, consider further evaluation with MRI. Per: Danny Mccullough M.D. on 08/2019 Lumbar x-ray: IMPRESSION: Multilevel moderate lumbar spondylosis and facet arthropathy. Levoscoliosis. Per: Danny Mccullough M.D. on 08/2019 Future Testing and Treatments Planned Possible further evaluation with MRI, per radiologist report PT-OP-C Subjective Start: 08/21/19 15:30 Freq: Status: Active Protocol: Document 06/15/20 09:06 SP (Rec: 06/15/20 13:02 SP [id number]) OP-PT Subjective Patient Comments Patient Comments Pt -03/26 with rounded shoulders and flexed trunk upon arrival carrying couple shoe/ boot boxes to assess posture and gait for work. Accepted new job and potentially driving to [facility] (1 hr 20 min from [place]). PT-OP-F Manual Assessment Start: 08/21/19 15:30 Freq: Status: Active Protocol: Document 04/28/20 10:30 DCW (Rec: 04/28/20 13:39 DCW [id number]) Manual Assessments Joint Mobility Assessment Joint Mobility Assessment Hypomobility throughout lumbar spine. Hypermobility of left tibiotalar joint PT-OP-G Mobility & Gait Start: 11/12/19 17:28 Freq: Status: Active Protocol: Document 04/28/20 10:30 DCW (Rec: 04/28/20 13:39 DCW [id number]) OP Gait Assessment Comments Gait Comments Left lateral trunk flexion still present, reduced compared to last assessment. PT-OP-K Range of Motion Start: 08/21/19 15:30 Freq: Status: Active Protocol: Document 04/28/20 10:30 DCW (Rec: 04/28/20 13:39 DCW [id number]) Lumbar Spine Range of Motion Lumbar Spine Active Degrees Testing Position Standing Flexion 65 Extension 12 ROM Limitations Soft Tissue Tightness,Muscle Tone,Pain Comments Improved lumbar mobility, still overuse of Thoracic spine mobility in flexion and extension PT-OP-L Special Tests Start: 08/21/19 15:30 Freq: Status: Active Protocol: Document 04/28/20 10:30 DCW (Rec: 04/28/20 13:39 DCW [id number]) Special Tests Hip Special Tests RAMONA Test Results Negative Other Special Tests Special Tests Accessory muscle breathing greatly reduced, only present with disctracted during heavy exercise PT-OP-M Strength Start: 08/21/19 15:30 Freq: Status: Active Protocol: Document 04/28/20 10:30 DCW (Rec: 04/28/20 13:39 DCW [id number]) Hip Strength Hip Manual Muscle Testing Bilateral Abduction 4- Good- Adduction 4- Good- PT-OP-Q Treatments Start: 08/21/19 15:30 Freq: Status: Active Protocol: Document 06/15/20 09:06 SP (Rec: 06/15/20 13:02 SP [id number]) Cardio Equipment Elliptical Duration (Minutes) 7 Resistance 7 Other decreased pian wit Gym Equipment Therapeutic Ball Resisted Rotation Exercise Details Resisted trunk rotation Ball Size/Color Green - 65 cm Lv 3 T-band Body Position Sitting Reps/Duration x20 R and L Comments cued slow rotations, pause end range then controlled eccentric return start pos . Therapeutic Exercises Supine Exercises sciatic nerve flossing Side bilateral Reps/Minutes 3x30 LS Rotation Ball Supine Exercise Name LE on ball hips/knees 90* Side bilateral Equipment Used Red small SB Reps/Minutes 2x10 deadbug Supine Exercise Name deadbug UE/ LE ext f/b slow marches Side bilateral Reps/Minutes 10 secs hold x 5 x2 Comments occasional cues to reduce lumbar ext- good stabilization Gait Training Gait Activity 1 Description gait trial with various shoes Surface level Distance/Duration 40ft x4 laps Treatment Focus neutral and level pelvis PT-OP-T Assessment and Plan Start: 08/21/19 15:30 Freq: Status: Active Protocol: Document 06/15/20 09:06 SP (Rec: 06/15/20 13:02 SP [id number]) Physical Therapy Assessment Goals Three Impairment Pt unable to go out dancing with her Teacher [employer] Goal (LTG) Pt to tolerate dancing for 45 minutes without increasing her pain LTG Duration 06/28/20 - improving Two Impairment Pt unable to sit in her car longer than 30 minutes without moderate pain Mcc Goal (LTG) Pt to tolerate sitting in her car for 60 minutes with pain < 4/10 LTG Duration 06/28/20 One Impairment Pt does not have an appropriate HEP Short Term Goal (STG) Pt to be independent and compliant with an appropriate HEP STG Duration Met Assessment Summary Assessment Pt arrived just waking up 35 min pre tx to allow for PT to see pain and posture when get up intially each day, then needing ET, stretching, exercises approx 1.5 hrs at home each am to loosen up. Pain decreased pre tx 6-03/26 to 09/26 end of tx today. Post ET warm up R LE pt reported light wt and unable to put full wt onto R leg and foot cant pull up to clear the floor right away. Improves with distance. No pain just not normal feeling and stability. Assessed gait with various new shoes: high top converse, level dress boots, high heel dress boots, good core stabilization and hip/ pelvis alignment -discussed ok to use higher heeled on limited basis due to may not stabilize half-way at this time with agreement. Review HEP and added sciatic nerve floss due to numbness, tingling post ET into legs and went away, slight notible pain R hip/ glut but not a problem. Pt is compliant with stretching, exercises but initial am still not back to normal. Physical Therapy Plan Frequency and Duration Frequency of Treatment 2x/Week Duration of Treatment 10 weeks Plan of Care Start Date 04/28/20 Plan of Care End Date 07/07/20 Therapeutic Interventions Therapeutic Interventions Aquatic Therapy,Home Exercise Program,Joint Mobilizations, Manual Therapy,Patient/ Caregiver Education,Self-Care/ Home Management,Soft Tissue Mobilization,Therapeutic Activities,Therapeutic Exercises Modalities Cold Pack/Ice Massage,Electric Stimulation,Hot Packs, Traction- Mechanical, Ultrasound Next Visit Focus/Plan Next Note Type Treatment Note Next Visit Plan Assess reponse to last tx. Continue per PT POC: Core/low back strengthening for stability, STM.
--- NOTE | 2020-06-22 16:01 | PT.OTN ---
Current Diagnoses Osteoarthritis of hip, unspecified (06/22/20) Pain in right hip (06/22/20) Pain in left hip (06/22/20) Intervertebral disc disorders with myelopathy, lumbar region (06/22/20) Lumbago with sciatica, unspecified side (06/22/20) Physical Therapy Treatment Note PT-OP-A Visit Information Start: 08/21/19 15:30 Freq: Status: Active Protocol: Document 06/22/20 15:15 DCW (Rec: 06/22/20 16:01 DCW [id number]) Out-Patient Physical Therapy Visit Information Visit Information Visit Type Treatment Note Visit Start Time 15:15 Visit Stop Time 16:00 Total Visit Minutes 45 Visit Number 53 Number of PROCESS CONTROLS TECHNICIAN Visits 0 Evaluation Information Evaluation Date 08/21/19 PT-OP-B Current Condition Start: 08/21/19 15:30 Freq: Status: Active Protocol: Document 08/21/19 15:30 DCW (Rec: 08/21/19 17:32 DCW [id number]) Current Condition History of Current Condition Onset Date Multi-year history Current Complaints low back and bilateral hip pain History of Current Condition Pt is a 58 year old female with a long history of low back and hip pain. Pt reports she has twice had a partial dislocation of her right hip, happening once in the 90s and once in the last decade. 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 Pt notes that this caused so much degeneration in my knees that when I was in my 30s, I couldn't go up and down stairs. Pt reports that since beginning Glucosamine and chondroitin, this has faded, and she is more mobile. She has recently been suffering an increase in bilateral posterior hip pain, especially with extended sitting, or trying to stand up after extended sitting. Pt also reports burning in the back of her hips, L>R. Pt reports that her PCP recently increased her Celebrex, which helped some, but just this past weekend, took a ferry to [place], and after sitting/ lying down for the trip, could barely walk off the ferry she was so stiff and sore. She is currently feeling improved, but everything just feels so tight. Prior Treatments and Tests Hip x-ray: IMPRESSION: Mild bilateral hip degeneration, probably age-appropriate. If the patient's pain or other symptoms persist, consider further evaluation with MRI. Per: Danny Mccullough M.D. on 08/2019 Lumbar x-ray: IMPRESSION: Multilevel moderate lumbar spondylosis and facet arthropathy. Levoscoliosis. Per: Danny Mccullough M.D. on 08/2019 Future Testing and Treatments Planned Possible further evaluation with MRI, per radiologist report PT-OP-C Subjective Start: 08/21/19 15:30 Freq: Status: Active Protocol: Document 06/22/20 15:15 DCW (Rec: 06/22/20 16:01 DCW [id number]) OP-PT Subjective Patient Comments Patient Comments Mornings remain to be painful . PT-OP-F Manual Assessment Start: 08/21/19 15:30 Freq: Status: Active Protocol: Document 04/28/20 10:30 DCW (Rec: 04/28/20 13:39 DCW [id number]) Manual Assessments Joint Mobility Assessment Joint Mobility Assessment Hypomobility throughout lumbar spine. Hypermobility of left tibiotalar joint PT-OP-G Mobility & Gait Start: 11/12/19 17:28 Freq: Status: Active Protocol: Document 04/28/20 10:30 DCW (Rec: 04/28/20 13:39 DCW [id number]) OP Gait Assessment Comments Gait Comments Left lateral trunk flexion still present, reduced compared to last assessment. PT-OP-K Range of Motion Start: 08/21/19 15:30 Freq: Status: Active Protocol: Document 04/28/20 10:30 DCW (Rec: 04/28/20 13:39 DCW [id number]) Lumbar Spine Range of Motion Lumbar Spine Active Degrees Testing Position Standing Flexion 65 Extension 12 ROM Limitations Soft Tissue Tightness,Muscle Tone,Pain Comments Improved lumbar mobility, still overuse of Thoracic spine mobility in flexion and extension PT-OP-L Special Tests Start: 08/21/19 15:30 Freq: Status: Active Protocol: Document 04/28/20 10:30 DCW (Rec: 04/28/20 13:39 DCW [id number]) Special Tests Hip Special Tests RAMONA Test Results Negative Other Special Tests Special Tests Accessory muscle breathing greatly reduced, only present with disctracted during heavy exercise PT-OP-M Strength Start: 08/21/19 15:30 Freq: Status: Active Protocol: Document 04/28/20 10:30 DCW (Rec: 04/28/20 13:39 DCW [id number]) Hip Strength Hip Manual Muscle Testing Bilateral Abduction 4- Good- Adduction 4- Good- PT-OP-Q Treatments Start: 08/21/19 15:30 Freq: Status: Active Protocol: Document 06/22/20 15:15 DCW (Rec: 06/22/20 16:01 DCW [id number]) Cardio Equipment Bicycle (Upright) Duration (Minutes) 6 Resistance 7 Seat Position 4 Therapeutic Exercises Sidelying Exercises 4 Sidelying Exercise Name Triple Threat Side bilateral 3 Sidelying Exercise Name Hip Abduction Side bilateral 2 Sidelying Exercise Name Reverse Clamshells Side bilateral Resistance Lv 2 Equipment Used T-band 1 Sidelying Exercise Name Clamshells Side bilateral Resistance Lv 2 Equipment Used T-band Manual Therapy Treatment Soft Tissue Mobilization Piriformis Body Location B Piriformis Mobilization Type Sustained Pressure Intensity/Depth Deep QL Body Location B QL Mobilization Type Sustained Pressure,Trigger Point Release Intensity/Depth Deep Body Position Prone Psoas Body Location B psoas and TFL Mobilization Type Cross-Friction,Sustained Pressure Intensity/Depth Deep Body Position Supine Joint Mobilizations SI Joint L SI Direction P->A Grade III PT-OP-T Assessment and Plan Start: 08/21/19 15:30 Freq: Status: Active Protocol: Document 06/22/20 15:15 DCW (Rec: 06/22/20 16:01 DCW [id number]) Physical Therapy Assessment Impairments Impairments Activity Tolerance,Functional Activities,Pain,ROM,Strength, Tone Goals Three Impairment Pt unable to go out dancing with her Assisted Goal (LTG) Pt to tolerate dancing for 45 minutes without increasing her pain LTG Duration 06/28/20 - improving Two Impairment Pt unable to sit in her car longer than 30 minutes without moderate pain Infantry Unit Leader Goal (LTG) Pt to tolerate sitting in her car for 60 minutes with pain < 4/10 LTG Duration 06/28/20 One Impairment Pt does not have an appropriate HEP Short Term Goal (STG) Pt to be independent and compliant with an appropriate HEP STG Duration Met Assessment Summary Assessment Planning on pt returning to PCP to determine what next step is to decrease pain upon waking. Pt would like to continue PT until decision is made with her PCP. Physical Therapy Plan Frequency and Duration Frequency of Treatment 2x/Week Duration of Treatment 10 weeks Plan of Care Start Date 04/28/20 Plan of Care End Date 07/07/20 Therapeutic Interventions Therapeutic Interventions Aquatic Therapy,Home Exercise Program,Joint Mobilizations, Manual Therapy,Patient/ Caregiver Education,Self-Care/ Home Management,Soft Tissue Mobilization,Therapeutic Activities,Therapeutic Exercises Modalities Cold Pack/Ice Massage,Electric Stimulation,Hot Packs, Traction- Mechanical, Ultrasound Next Visit Focus/Plan Next Note Type Treatment Note Next Visit Plan Assess reponse to last tx. Continue per PT POC: Core/low back strengthening for stability, STM.
--- NOTE | 2020-06-24 16:50 | PT.OTN ---
Current Diagnoses Osteoarthritis of hip, unspecified (06/24/20) Pain in right hip (06/24/20) Pain in left hip (06/24/20) Intervertebral disc disorders with myelopathy, lumbar region (06/24/20) Lumbago with sciatica, unspecified side (06/24/20) Physical Therapy Treatment Note PT-OP-A Visit Information Start: 08/21/19 15:30 Freq: Status: Active Protocol: Document 06/24/20 16:00 DCW (Rec: 06/24/20 16:50 DCW [id number]) Out-Patient Physical Therapy Visit Information Visit Information Visit Type Treatment Note Visit Start Time 16:00 Visit Stop Time 16:45 Total Visit Minutes 45 Visit Number 54 Number of AIR INTERCEPT CONTROLLER Visits 0 Evaluation Information Evaluation Date 08/21/19 PT-OP-B Current Condition Start: 08/21/19 15:30 Freq: Status: Active Protocol: Document 08/21/19 15:30 DCW (Rec: 08/21/19 17:32 DCW [id number]) Current Condition History of Current Condition Onset Date Multi-year history Current Complaints low back and bilateral hip pain History of Current Condition Pt is a 58 year old female with a long history of low back and hip pain. Pt reports she has twice had a partial dislocation of her right hip, happening once in the 90s and once in the last decade. 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 Pt notes that this caused so much degeneration in my knees that when I was in my 30s, I couldn't go up and down stairs. Pt reports that since beginning Glucosamine and chondroitin, this has faded, and she is more mobile. She has recently been suffering an increase in bilateral posterior hip pain, especially with extended sitting, or trying to stand up after extended sitting. Pt also reports burning in the back of her hips, L>R. Pt reports that her PCP recently increased her Celebrex, which helped some, but just this past weekend, took a ferry to [place], and after sitting/ lying down for the trip, could barely walk off the ferry she was so stiff and sore. She is currently feeling improved, but everything just feels so tight. Prior Treatments and Tests Hip x-ray: IMPRESSION: Mild bilateral hip degeneration, probably age-appropriate. If the patient's pain or other symptoms persist, consider further evaluation with MRI. Per: Danny Mccullough M.D. on 08/2019 Lumbar x-ray: IMPRESSION: Multilevel moderate lumbar spondylosis and facet arthropathy. Levoscoliosis. Per: Danny Mccullough M.D. on 08/2019 Future Testing and Treatments Planned Possible further evaluation with MRI, per radiologist report PT-OP-C Subjective Start: 08/21/19 15:30 Freq: Status: Active Protocol: Document 06/24/20 16:00 DCW (Rec: 06/24/20 16:50 DCW [id number]) OP-PT Subjective Patient Comments Patient Comments Pt reports she is feeling a little stiff still this afternoon. PT-OP-F Manual Assessment Start: 08/21/19 15:30 Freq: Status: Active Protocol: Document 04/28/20 10:30 DCW (Rec: 04/28/20 13:39 DCW [id number]) Manual Assessments Joint Mobility Assessment Joint Mobility Assessment Hypomobility throughout lumbar spine. Hypermobility of left tibiotalar joint PT-OP-G Mobility & Gait Start: 11/12/19 17:28 Freq: Status: Active Protocol: Document 04/28/20 10:30 DCW (Rec: 04/28/20 13:39 DCW [id number]) OP Gait Assessment Comments Gait Comments Left lateral trunk flexion still present, reduced compared to last assessment. PT-OP-K Range of Motion Start: 08/21/19 15:30 Freq: Status: Active Protocol: Document 04/28/20 10:30 DCW (Rec: 04/28/20 13:39 DCW [id number]) Lumbar Spine Range of Motion Lumbar Spine Active Degrees Testing Position Standing Flexion 65 Extension 12 ROM Limitations Soft Tissue Tightness,Muscle Tone,Pain Comments Improved lumbar mobility, still overuse of Thoracic spine mobility in flexion and extension PT-OP-L Special Tests Start: 08/21/19 15:30 Freq: Status: Active Protocol: Document 04/28/20 10:30 DCW (Rec: 04/28/20 13:39 DCW [id number]) Special Tests Hip Special Tests RAMONA Test Results Negative Other Special Tests Special Tests Accessory muscle breathing greatly reduced, only present with disctracted during heavy exercise PT-OP-M Strength Start: 08/21/19 15:30 Freq: Status: Active Protocol: Document 04/28/20 10:30 DCW (Rec: 04/28/20 13:39 DCW [id number]) Hip Strength Hip Manual Muscle Testing Bilateral Abduction 4- Good- Adduction 4- Good- PT-OP-Q Treatments Start: 08/21/19 15:30 Freq: Status: Active Protocol: Document 06/24/20 16:00 DCW (Rec: 06/24/20 16:50 DCW [id number]) Cardio Equipment Elliptical Duration (Minutes) 4 Resistance 6 Gym Equipment Shuttle Balance Red Details Staggered Weight shift, Lateral weight shift Therapeutic Ball Pelvic circles Exercise Details Pelvic circles, pelvic tilts Ball Size/Color Green - 65 cm Body Position Sitting Gait Training Gait Activity 1 Description gait trial with various shoes Surface level Distance/Duration 40ft x4 laps Treatment Focus neutral and level pelvis Manual Therapy Treatment Soft Tissue Mobilization Psoas Body Location B psoas and TFL Mobilization Type Cross-Friction,Sustained Pressure Intensity/Depth Deep Body Position Supine PT-OP-T Assessment and Plan Start: 08/21/19 15:30 Freq: Status: Active Protocol: Document 06/24/20 16:00 DCW (Rec: 06/24/20 16:50 DCW [id number]) Physical Therapy Assessment Impairments Impairments Activity Tolerance,Functional Activities,Pain,ROM,Strength, Tone Goals Three Impairment Pt unable to go out dancing with her Mcfp Goal (LTG) Pt to tolerate dancing for 45 minutes without increasing her pain LTG Duration 06/28/20 - improving Two Impairment Pt unable to sit in her car longer than 30 minutes without moderate pain Mcfp Goal (LTG) Pt to tolerate sitting in her car for 60 minutes with pain < 4/10 LTG Duration 06/28/20 One Impairment Pt does not have an appropriate HEP Short Term Goal (STG) Pt to be independent and compliant with an appropriate HEP STG Duration Met Assessment Summary Assessment Pt did well today with mobility and stability training, less stiffness after quick warm up on elliptical. Physical Therapy Plan Frequency and Duration Frequency of Treatment 2x/Week Duration of Treatment 10 weeks Plan of Care Start Date 04/28/20 Plan of Care End Date 07/07/20 Therapeutic Interventions Therapeutic Interventions Aquatic Therapy,Home Exercise Program,Joint Mobilizations, Manual Therapy,Patient/ Caregiver Education,Self-Care/ Home Management,Soft Tissue Mobilization,Therapeutic Activities,Therapeutic Exercises Modalities Cold Pack/Ice Massage,Electric Stimulation,Hot Packs, Traction- Mechanical, Ultrasound Next Visit Focus/Plan Next Note Type Treatment Note Next Visit Plan Assess reponse to last tx. Continue per PT POC: Core/low back strengthening for stability, STM.
--- NOTE | 2020-06-29 11:17 | PT.OTN ---
Current Diagnoses Osteoarthritis of hip, unspecified (06/29/20) Pain in right hip (06/29/20) Pain in left hip (06/29/20) Intervertebral disc disorders with myelopathy, lumbar region (06/29/20) Lumbago with sciatica, unspecified side (06/29/20) Physical Therapy Treatment Note PT-OP-A Visit Information Start: 08/21/19 15:30 Freq: Status: Active Protocol: Document 06/29/20 10:30 DCW (Rec: 06/29/20 11:16 DCW [id number]) Out-Patient Physical Therapy Visit Information Visit Information Visit Type Treatment Note Visit Start Time 10:30 Visit Stop Time 11:15 Total Visit Minutes 45 Visit Number 55 Number of ACQUISITION PROFESSIONAL Visits 0 Evaluation Information Evaluation Date 08/21/19 PT-OP-B Current Condition Start: 08/21/19 15:30 Freq: Status: Active Protocol: Document 08/21/19 15:30 DCW (Rec: 08/21/19 17:32 DCW [id number]) Current Condition History of Current Condition Onset Date Multi-year history Current Complaints low back and bilateral hip pain History of Current Condition Pt is a 58 year old female with a long history of low back and hip pain. Pt reports she has twice had a partial dislocation of her right hip, happening once in the 90s and once in the last decade. 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 Pt notes that this caused so much degeneration in my knees that when I was in my 30s, I couldn't go up and down stairs. Pt reports that since beginning Glucosamine and chondroitin, this has faded, and she is more mobile. She has recently been suffering an increase in bilateral posterior hip pain, especially with extended sitting, or trying to stand up after extended sitting. Pt also reports burning in the back of her hips, L>R. Pt reports that her PCP recently increased her Celebrex, which helped some, but just this past weekend, took a ferry to [place], and after sitting/ lying down for the trip, could barely walk off the ferry she was so stiff and sore. She is currently feeling improved, but everything just feels so tight. Prior Treatments and Tests Hip x-ray: IMPRESSION: Mild bilateral hip degeneration, probably age-appropriate. If the patient's pain or other symptoms persist, consider further evaluation with MRI. Per: Danny Mccullough M.D. on 08/2019 Lumbar x-ray: IMPRESSION: Multilevel moderate lumbar spondylosis and facet arthropathy. Levoscoliosis. Per: Danny Mccullough M.D. on 08/2019 Future Testing and Treatments Planned Possible further evaluation with MRI, per radiologist report PT-OP-C Subjective Start: 08/21/19 15:30 Freq: Status: Active Protocol: Document 06/29/20 10:30 DCW (Rec: 06/29/20 11:16 DCW [id number]) OP-PT Subjective Patient Comments Patient Comments Pt hasn't had the sharp ache this morning, but pt notes she has had her doing some manual massage on her before getting out of bed in the morning, which seems to be helping quite a bit. PT-OP-F Manual Assessment Start: 08/21/19 15:30 Freq: Status: Active Protocol: Document 04/28/20 10:30 DCW (Rec: 04/28/20 13:39 DCW [id number]) Manual Assessments Joint Mobility Assessment Joint Mobility Assessment Hypomobility throughout lumbar spine. Hypermobility of left tibiotalar joint PT-OP-G Mobility & Gait Start: 11/12/19 17:28 Freq: Status: Active Protocol: Document 04/28/20 10:30 DCW (Rec: 04/28/20 13:39 DCW [id number]) OP Gait Assessment Comments Gait Comments Left lateral trunk flexion still present, reduced compared to last assessment. PT-OP-K Range of Motion Start: 08/21/19 15:30 Freq: Status: Active Protocol: Document 04/28/20 10:30 DCW (Rec: 04/28/20 13:39 DCW [id number]) Lumbar Spine Range of Motion Lumbar Spine Active Degrees Testing Position Standing Flexion 65 Extension 12 ROM Limitations Soft Tissue Tightness,Muscle Tone,Pain Comments Improved lumbar mobility, still overuse of Thoracic spine mobility in flexion and extension PT-OP-L Special Tests Start: 08/21/19 15:30 Freq: Status: Active Protocol: Document 04/28/20 10:30 DCW (Rec: 04/28/20 13:39 DCW [id number]) Special Tests Hip Special Tests RAMONA Test Results Negative Other Special Tests Special Tests Accessory muscle breathing greatly reduced, only present with disctracted during heavy exercise PT-OP-M Strength Start: 08/21/19 15:30 Freq: Status: Active Protocol: Document 04/28/20 10:30 DCW (Rec: 04/28/20 13:39 DCW [id number]) Hip Strength Hip Manual Muscle Testing Bilateral Abduction 4- Good- Adduction 4- Good- PT-OP-Q Treatments Start: 08/21/19 15:30 Freq: Status: Active Protocol: Document 06/29/20 10:30 DCW (Rec: 06/29/20 11:16 DCW [id number]) Cardio Equipment Elliptical Duration (Minutes) 6 Resistance 6 Gym Equipment Therapeutic Ball Pelvic circles Exercise Details Pelvic circles, pelvic tilts Ball Size/Color Green - 65 cm Body Position Sitting Manual Therapy Treatment Soft Tissue Mobilization Piriformis Body Location B Piriformis Mobilization Type Sustained Pressure Intensity/Depth Deep QL Body Location B QL Mobilization Type Sustained Pressure,Trigger Point Release Intensity/Depth Deep Body Position Prone Psoas Body Location B psoas and TFL Mobilization Type Cross-Friction,Sustained Pressure Intensity/Depth Deep Body Position Supine Joint Mobilizations SI Joint L SI Direction P->A Grade III Manual Traction hip distraction Details R LE - Long [place] Body Position Supine Comments reports of symptoms relief. PT-OP-T Assessment and Plan Start: 08/21/19 15:30 Freq: Status: Active Protocol: Document 06/29/20 10:30 DCW (Rec: 06/29/20 11:16 DCW [id number]) Physical Therapy Assessment Impairments Impairments Activity Tolerance,Functional Activities,Pain,ROM,Strength, Tone Goals Three Impairment Pt unable to go out dancing with her Mcc Goal (LTG) Pt to tolerate dancing for 45 minutes without increasing her pain LTG Duration 06/28/20 - improving Two Impairment Pt unable to sit in her car longer than 30 minutes without moderate pain Adaptive Physical Educator Goal (LTG) Pt to tolerate sitting in her car for 60 minutes with pain < 4/10 LTG Duration 06/28/20 One Impairment Pt does not have an appropriate HEP Short Term Goal (STG) Pt to be independent and compliant with an appropriate HEP STG Duration Met Assessment Summary Assessment Pt felt significantly loosened up following STM, felt able to stand and walk straighter. Physical Therapy Plan Frequency and Duration Frequency of Treatment 2x/Week Duration of Treatment 10 weeks Plan of Care Start Date 04/28/20 Plan of Care End Date 07/07/20 Therapeutic Interventions Therapeutic Interventions Aquatic Therapy,Home Exercise Program,Joint Mobilizations, Manual Therapy,Patient/ Caregiver Education,Self-Care/ Home Management,Soft Tissue Mobilization,Therapeutic Activities,Therapeutic Exercises Modalities Cold Pack/Ice Massage,Electric Stimulation,Hot Packs, Traction- Mechanical, Ultrasound Next Visit Focus/Plan Next Note Type Progress Note Next Visit Plan Assess reponse to last tx. Continue per PT POC: Core/low back strengthening for stability, STM.
--- NOTE | 2020-07-01 16:52 | PT.OTN ---
Current Diagnoses Osteoarthritis of hip, unspecified (07/01/20) Pain in right hip (07/01/20) Pain in left hip (07/01/20) Intervertebral disc disorders with myelopathy, lumbar region (07/01/20) Lumbago with sciatica, unspecified side (07/01/20) Physical Therapy Treatment Note PT-OP-A Visit Information Start: 08/21/19 15:30 Freq: Status: Active Protocol: Document 07/01/20 16:05 DCW (Rec: 07/01/20 16:52 DCW [id number]) Out-Patient Physical Therapy Visit Information Visit Information Visit Type Treatment Note Visit Start Time 16:05 Visit Stop Time 16:45 Total Visit Minutes 40 Visit Number 56 Number of MEDICAL COLLECTOR Visits 0 Evaluation Information Evaluation Date 08/21/19 PT-OP-B Current Condition Start: 08/21/19 15:30 Freq: Status: Active Protocol: Document 08/21/19 15:30 DCW (Rec: 08/21/19 17:32 DCW [id number]) Current Condition History of Current Condition Onset Date Multi-year history Current Complaints low back and bilateral hip pain History of Current Condition Pt is a 58 year old female with a long history of low back and hip pain. Pt reports she has twice had a partial dislocation of her right hip, happening once in the 90s and once in the last decade. 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 Pt notes that this caused so much degeneration in my knees that when I was in my 30s, I couldn't go up and down stairs. Pt reports that since beginning Glucosamine and chondroitin, this has faded, and she is more mobile. She has recently been suffering an increase in bilateral posterior hip pain, especially with extended sitting, or trying to stand up after extended sitting. Pt also reports burning in the back of her hips, L>R. Pt reports that her PCP recently increased her Celebrex, which helped some, but just this past weekend, took a ferry to [place], and after sitting/ lying down for the trip, could barely walk off the ferry she was so stiff and sore. She is currently feeling improved, but everything just feels so tight. Prior Treatments and Tests Hip x-ray: IMPRESSION: Mild bilateral hip degeneration, probably age-appropriate. If the patient's pain or other symptoms persist, consider further evaluation with MRI. Per: Danny Mccullough M.D. on 08/2019 Lumbar x-ray: IMPRESSION: Multilevel moderate lumbar spondylosis and facet arthropathy. Levoscoliosis. Per: Danny Mccullough M.D. on 08/2019 Future Testing and Treatments Planned Possible further evaluation with MRI, per radiologist report PT-OP-C Subjective Start: 08/21/19 15:30 Freq: Status: Active Protocol: Document 07/01/20 16:05 DCW (Rec: 07/01/20 16:52 DCW [id number]) OP-PT Subjective Patient Comments Patient Comments Pt has a purposly slow day, which I really needed, but admits that means she hasn't done much, so she is a little stiff. PT-OP-F Manual Assessment Start: 08/21/19 15:30 Freq: Status: Active Protocol: Document 07/01/20 16:05 DCW (Rec: 07/01/20 16:37 DCW [id number]) Manual Assessments Soft Tissue Assessment Soft Tissue Mobility Assessment Tenderness to palpation 1/4 - Complaint of Pain: L QL, Bilateral piriformis, bilateral psoas Moderate-severe tone along bilateral paraspinals, L>R Joint Mobility Assessment Joint Mobility Assessment Hypomobility throughout lumbar spine. Hypermobility of left tibiotalar joint PT-OP-G Mobility & Gait Start: 11/12/19 17:28 Freq: Status: Active Protocol: Document 07/01/20 16:05 DCW (Rec: 07/01/20 16:37 DCW [id number]) OP Gait Assessment Comments Gait Comments Remaining left lateral trunk flexion at rest and with gait, likely secondary to natural mild scoliosis PT-OP-K Range of Motion Start: 08/21/19 15:30 Freq: Status: Active Protocol: Document 07/01/20 16:05 DCW (Rec: 07/01/20 16:37 DCW [id number]) Lumbar Spine Range of Motion Lumbar Spine Active Degrees Testing Position Standing Flexion 70 Extension 10 ROM Limitations Soft Tissue Tightness,Muscle Tone,Pain Comments Improved lumbar mobility, still overuse of Thoracic spine mobility in flexion and extension PT-OP-L Special Tests Start: 08/21/19 15:30 Freq: Status: Active Protocol: Document 07/01/20 16:05 DCW (Rec: 07/01/20 16:37 DCW [id number]) Special Tests Hip Special Tests RAMONA Test Results Negative Other Special Tests Special Tests Accessory muscle breathing greatly reduced, only present with disctraction during heavy exercise PT-OP-M Strength Start: 08/21/19 15:30 Freq: Status: Active Protocol: Document 07/01/20 16:05 DCW (Rec: 07/01/20 16:37 DCW [id number]) Hip Strength Hip Manual Muscle Testing Bilateral Flexion (L2) 5 Normal Extension (S1) 5 Normal Abduction 4 Good Adduction 4 Good Knee Strength Knee Manual Muscle Testing Bilateral Flexion (S2) 4+ Good+ Extension (L3) 4+ Good+ PT-OP-Q Treatments Start: 08/21/19 15:30 Freq: Status: Active Protocol: Document 07/01/20 16:05 DCW (Rec: 07/01/20 16:52 DCW [id number]) Cardio Equipment Elliptical Duration (Minutes) 5 Resistance 6 Manual Therapy Treatment Soft Tissue Mobilization Piriformis Body Location B Piriformis Mobilization Type Sustained Pressure Intensity/Depth Deep QL Body Location B QL Mobilization Type Sustained Pressure,Trigger Point Release Intensity/Depth Deep Body Position Prone Psoas Body Location B psoas and TFL Mobilization Type Cross-Friction,Sustained Pressure Intensity/Depth Deep Body Position Supine Joint Mobilizations SI Joint L SI Direction P->A Grade III Manual Traction hip distraction Details R LE - Long [place] Body Position Supine Comments reports of symptoms relief. PT-OP-T Assessment and Plan Start: 08/21/19 15:30 Freq: Status: Active Protocol: Document 07/01/20 16:05 DCW (Rec: 07/01/20 16:52 DCW [id number]) Physical Therapy Assessment Impairments Impairments Activity Tolerance,Functional Activities,Pain,ROM,Strength, Tone Goals Three Impairment Pt unable to go out dancing with her Battery Tester And Repairer Goal (LTG) Pt to tolerate dancing for 45 minutes without increasing her pain LTG Duration 07/29/20 - improving Two Impairment Pt unable to sit in her car longer than 30 minutes without moderate pain Alf Goal (LTG) Pt to tolerate sitting in her car for 60 minutes with pain < 4/10 LTG Duration 07/29/20 One Impairment Pt does not have an appropriate HEP Short Term Goal (STG) Pt to be independent and compliant with an appropriate HEP STG Duration Met Assessment Summary Assessment Pt overall subjective symptoms have not changed too much, despite all of her objective symptoms improving greatly. Hip and back mobility have improved, LE strength improved , gait and breathing are both significantly better. Pt still has hypomobility in lumbar spine and pain/stiffness upon waking and after riding in car for extended time. Uncovered today increased tone in thoracic paraspinals and bilateral infraspinatus muscles, which may be increasing pt pain, and she should benefit from some strengthening and STM, however pt should also return to PCP to follow up and inquire regarding potential next step. Physical Therapy Plan Frequency and Duration Frequency of Treatment 2x/Week Duration of Treatment 10 weeks Plan of Care Start Date 04/28/20 Plan of Care End Date 07/07/20 Therapeutic Interventions Therapeutic Interventions Aquatic Therapy,Home Exercise Program,Joint Mobilizations, Manual Therapy,Patient/ Caregiver Education,Self-Care/ Home Management,Soft Tissue Mobilization,Therapeutic Activities,Therapeutic Exercises Modalities Cold Pack/Ice Massage,Electric Stimulation,Hot Packs, Traction- Mechanical, Ultrasound Next Visit Focus/Plan Next Note Type Progress Note Next Visit Plan Assess reponse to last tx. Continue per PT POC: Core/low back strengthening for stability, STM.
--- NOTE | 2020-07-01 16:54 | PT.OPPOC ---
Physical, Occupational & Speech Therapy At [facility] Current Diagnoses Osteoarthritis of hip, unspecified (07/01/20) Pain in right hip (07/01/20) Pain in left hip (07/01/20) Intervertebral disc disorders with myelopathy, lumbar region (07/01/20) Lumbago with sciatica, unspecified side (07/01/20) Visit Care Team Role Provider Type Jersey Price MD Attending Provider Physician Primary Care Provider Specialty: [facility] Address: [address] [place] [address], [facility] Email: [email or web address] Plan Of Care PT-OP-T Assessment and Plan Start: 08/21/19 15:30 Freq: Status: Active Protocol: Document 07/01/20 16:05 DCW (Rec: 07/01/20 16:52 DCW [id number]) Physical Therapy Assessment Impairments Impairments Activity Tolerance,Functional Activities,Pain,ROM,Strength, Tone Goals Three Impairment Pt unable to go out dancing with her Shelter Goal (LTG) Pt to tolerate dancing for 45 minutes without increasing her pain LTG Duration 07/29/20 - improving Two Impairment Pt unable to sit in her car longer than 30 minutes without moderate pain Special Needs Caregiver Goal (LTG) Pt to tolerate sitting in her car for 60 minutes with pain < 4/10 LTG Duration 07/29/20 One Impairment Pt does not have an appropriate HEP Short Term Goal (STG) Pt to be independent and compliant with an appropriate HEP STG Duration Met Assessment Summary Assessment Pt overall subjective symptoms have not changed too much, despite all of her objective symptoms improving greatly. Hip and back mobility have improved, LE strength improved , gait and breathing are both significantly better. Pt still has hypomobility in lumbar spine and pain/stiffness upon waking and after riding in car for extended time. Uncovered today increased tone in thoracic parqaspinals and bilateral infraspinatus muscles, which may be increasing pt pain, and she should benefit from some strengthening and STM, however pt should also return to PCP to follow up and inquire regarding potential next step. Physical Therapy Plan Frequency and Duration Frequency of Treatment 2x/Week Duration of Treatment 10 weeks Plan of Care Start Date 04/28/20 Plan of Care End Date 07/07/20 Therapeutic Interventions Therapeutic Interventions Aquatic Therapy,Home Exercise Program,Joint Mobilizations, Manual Therapy,Patient/ Caregiver Education,Self-Care/ Home Management,Soft Tissue Mobilization,Therapeutic Activities,Therapeutic Exercises Modalities Cold Pack/Ice Massage,Electric Stimulation,Hot Packs, Traction- Mechanical, Ultrasound Next Visit Focus/Plan Next Note Type Progress Note Next Visit Plan Assess reponse to last tx. Continue per PT POC: Core/low back strengthening for stability, STM. Plan of Care Dates Plan of Care Start Date 04/28/20 Plan of Care End Date 07/07/20 Electronically Signed by: Rudi Doyle, PT 07/01/20 2140 Please Sign and Return: I have reviewed this Plan of Care and certify that the skilled therapy services above are required to meet the patient?s needs. Physician Signature Date Printed Name and Credentials Clinical Instructor Signature Printed Name and Credentials
--- NOTE | 2020-07-06 09:53 | PT.OTN ---
Current Diagnoses Osteoarthritis of hip, unspecified (07/06/20) Pain in right hip (07/06/20) Pain in left hip (07/06/20) Intervertebral disc disorders with myelopathy, lumbar region (07/06/20) Lumbago with sciatica, unspecified side (07/06/20) Physical Therapy Treatment Note PT-OP-A Visit Information Start: 08/21/19 15:30 Freq: Status: Active Protocol: Document 07/06/20 09:53 DLM (Rec: 07/06/20 15:15 DLM [email or web address]) Out-Patient Physical Therapy Visit Information Visit Information Visit Type Treatment Note Visit Note 9 more visits allowed by insurance benefits Visit Start Time 09:53 Visit Stop Time 10:31 Total Visit Minutes 38 Visit Number 57 Number of TROLLEY COACH DRIVER Visits 0 Evaluation Information Evaluation Date 08/21/19 PT-OP-B Current Condition Start: 08/21/19 15:30 Freq: Status: Active Protocol: Document 08/21/19 15:30 DCW (Rec: 08/21/19 17:32 DCW [id number]) Current Condition History of Current Condition Onset Date Multi-year history Current Complaints low back and bilateral hip pain History of Current Condition Pt is a 58 year old female with a long history of low back and hip pain. Pt reports she has twice had a partial dislocation of her right hip, happening once in the 90s and once in the last decade. 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 Pt notes that this caused so much degeneration in my knees that when I was in my 30s, I couldn't go up and down stairs. Pt reports that since beginning Glucosamine and chondroitin, this has faded, and she is more mobile. She has recently been suffering an increase in bilateral posterior hip pain, especially with extended sitting, or trying to stand up after extended sitting. Pt also reports burning in the back of her hips, L>R. Pt reports that her PCP recently increased her Celebrex, which helped some, but just this past weekend, took a ferry to [place], and after sitting/ lying down for the trip, could barely walk off the ferry she was so stiff and sore. She is currently feeling improved, but everything just feels so tight. Prior Treatments and Tests Hip x-ray: IMPRESSION: Mild bilateral hip degeneration, probably age-appropriate. If the patient's pain or other symptoms persist, consider further evaluation with MRI. Per: Danny Mccullough M.D. on 08/2019 Lumbar x-ray: IMPRESSION: Multilevel moderate lumbar spondylosis and facet arthropathy. Levoscoliosis. Per: Danny Mccullough M.D. on 08/2019 Future Testing and Treatments Planned Possible further evaluation with MRI, per radiologist report PT-OP-C Subjective Start: 08/21/19 15:30 Freq: Status: Active Protocol: Document 07/06/20 09:53 DLM (Rec: 07/06/20 15:18 DLM [id number]) OP-PT Subjective Patient Comments Patient Comments She has an appt with physician on Sunday. She still has stiffness in the mornings. She thinks her stiffness is the worst after lying down about 2 hours. She starts a new job that will require a 1 hour, 20 min commute. Patient Reported Progress Improving PT-OP-F Manual Assessment Start: 08/21/19 15:30 Freq: Status: Active Protocol: Document 07/01/20 16:05 DCW (Rec: 07/01/20 16:37 DCW [id number]) Manual Assessments Soft Tissue Assessment Soft Tissue Mobility Assessment Tenderness to palpation 1/4 - Complaint of Pain: L QL, Bilateral piriformis, bilateral psoas Moderate-severe tone along bilateral paraspinals, L>R Joint Mobility Assessment Joint Mobility Assessment Hypomobility throughout lumbar spine. Hypermobility of left tibiotalar joint PT-OP-G Mobility & Gait Start: 11/12/19 17:28 Freq: Status: Active Protocol: Document 07/01/20 16:05 DCW (Rec: 07/01/20 16:37 DCW [id number]) OP Gait Assessment Comments Gait Comments Remaining left lateral trunk flexion at rest and with gait, likely secondary to natural mild scoliosis PT-OP-K Range of Motion Start: 08/21/19 15:30 Freq: Status: Active Protocol: Document 07/01/20 16:05 DCW (Rec: 07/01/20 16:37 DCW [id number]) Lumbar Spine Range of Motion Lumbar Spine Active Degrees Testing Position Standing Flexion 70 Extension 10 ROM Limitations Soft Tissue Tightness,Muscle Tone,Pain Comments Improved lumbar mobility, still overuse of Thoracic spine mobility in flexion and extension PT-OP-L Special Tests Start: 08/21/19 15:30 Freq: Status: Active Protocol: Document 07/01/20 16:05 DCW (Rec: 07/01/20 16:37 DCW [id number]) Special Tests Hip Special Tests RAMONA Test Results Negative Other Special Tests Special Tests Accessory muscle breathing greatly reduced, only present with disctraction during heavy exercise PT-OP-M Strength Start: 08/21/19 15:30 Freq: Status: Active Protocol: Document 07/01/20 16:05 DCW (Rec: 07/01/20 16:37 DCW [id number]) Hip Strength Hip Manual Muscle Testing Bilateral Flexion (L2) 5 Normal Extension (S1) 5 Normal Abduction 4 Good Adduction 4 Good Knee Strength Knee Manual Muscle Testing Bilateral Flexion (S2) 4+ Good+ Extension (L3) 4+ Good+ PT-OP-Q Treatments Start: 08/21/19 15:30 Freq: Status: Active Protocol: Document 07/06/20 09:53 DLM (Rec: 07/06/20 16:48 DLM [id number]) Cardio Equipment Elliptical Duration (Minutes) 6 Resistance 6 Therapeutic Exercises Supine Exercises single knee fall out Supine Exercise Name single limb fall out with core stabalization Side bilateral Reps/Minutes 10 reps each side Sidelying Exercises 4 Sidelying Exercise Name triple threat Side bilateral Reps/Minutes 20 reps 2 Sidelying Exercise Name Reverse Clamshells Side bilateral Resistance Lv 2 Equipment Used T-band Reps/Minutes 20 reps 1 Sidelying Exercise Name Cladehells Side bilateral Resistance Lv 2 Equipment Used T-band Reps/Minutes 20 reps Manual Therapy Treatment Soft Tissue Mobilization Piriformis Body Location B Piriformis Mobilization Type Sustained Pressure Intensity/Depth Deep Body Position Prone QL Body Location B QL Mobilization Type Sustained Pressure,Trigger Point Release Intensity/Depth Deep Body Position Prone PF, glut med Body Location Gluts Mobilization Type Strumming,Sustained Pressure Intensity/Depth Moderate Body Position Prone Manual Traction hip distraction Details R LE - Long [place] Body Position Supine PT-OP-T Assessment and Plan Start: 08/21/19 15:30 Freq: Status: Active Protocol: Document 07/06/20 09:53 DLM (Rec: 07/06/20 19:05 DLM [id number]) Physical Therapy Assessment Goals Three Impairment Pt unable to go out dancing with her Half-Way Goal (LTG) Pt to tolerate dancing for 45 minutes without increasing her pain LTG Duration 07/29/20 - improving Two Impairment Pt unable to sit in her car longer than 30 minutes without moderate pain Rug Frame Mounter Goal (LTG) Pt to tolerate sitting in her car for 60 minutes with pain < 4/10 LTG Duration 07/29/20 One Impairment Pt does not have an appropriate HEP Short Term Goal (STG) Pt to be independent and compliant with an appropriate HEP STG Duration Met Progress Towards Goals Progress Towards Goals Progressing Toward Goals Progress Comments Goal date extended to 07/29/20 but plan of care was not extended. Correcting this mistake with new plan of care. Assessment Summary Assessment Her subjective compaints of stiffness continue. She continues to demonstrate progress with ROM and strength . Pt has follow-up with physician scheduled. Physical Therapy Plan Frequency and Duration Frequency of Treatment 2x/Week Duration of Treatment 4 weeks Plan of Care Start Date 07/06/20 Plan of Care End Date 07/29/20 Therapeutic Interventions Therapeutic Interventions Aquatic Therapy,Home Exercise Program,Joint Mobilizations, Manual Therapy,Patient/ Caregiver Education,Self-Care/ Home Management,Soft Tissue Mobilization,Therapeutic Activities,Therapeutic Exercises Modalities Cold Pack/Ice Massage,Electric Stimulation,Hot Packs, Traction- Mechanical, Ultrasound Other Referrals/Consults Referrals/Consults Recommended recommended pt follow-up with PCP Next Visit Focus/Plan Next Note Type Treatment Note Next Visit Plan continue to address c/o stiffness
--- NOTE | 2020-07-06 09:53 | PT.OPPOC ---
Physical, Occupational & Speech Therapy At [facility] Current Diagnoses Osteoarthritis of hip, unspecified (07/06/20) Pain in right hip (07/06/20) Pain in left hip (07/06/20) Intervertebral disc disorders with myelopathy, lumbar region (07/06/20) Lumbago with sciatica, unspecified side (07/06/20) Visit Care Team Role Provider Type Jersey Price MD Attending Provider Physician Primary Care Provider Specialty: [facility] Address: [address] [place] [address], [facility] Email: [email or web address] Plan Of Care PT-OP-T Assessment and Plan Start: 08/21/19 15:30 Freq: Status: Active Protocol: Document 07/06/20 09:53 DLM (Rec: 07/06/20 19:05 DLM [id number]) Physical Therapy Assessment Goals Three Impairment Pt unable to go out dancing with her Director Of Marketing [employer] Goal (LTG) Pt to tolerate dancing for 45 minutes without increasing her pain LTG Duration 07/29/20 - improving Two Impairment Pt unable to sit in her car longer than 30 minutes without moderate pain Director Of Marketing [employer] Goal (LTG) Pt to tolerate sitting in her car for 60 minutes with pain < 4/10 LTG Duration 07/29/20 One Impairment Pt does not have an appropriate HEP Short Term Goal (STG) Pt to be independent and compliant with an appropriate HEP STG Duration Met Progress Towards Goals Progress Towards Goals Progressing Toward Goals Progress Comments Goal date extended to 07/29/20 but plan of care was not extended in last progress not. Correcting this mistake with new plan of care. Assessment Summary Assessment Her subjective complaints of stiffness continue. She continues to demonstrate progress with ROM and strength . Pt has follow-up with physician scheduled. She tolerated treatment session well. Physical Therapy Plan Frequency and Duration Frequency of Treatment 2x/Week Duration of Treatment 4 weeks Plan of Care Start Date 07/06/20 Plan of Care End Date 07/29/20 Therapeutic Interventions Therapeutic Interventions Aquatic Therapy,Home Exercise Program,Joint Mobilizations, Manual Therapy,Patient/ Caregiver Education,Self-Care/ Home Management,Soft Tissue Mobilization,Therapeutic Activities,Therapeutic Exercises Modalities Cold Pack/Ice Massage,Electric Stimulation,Hot Packs, Traction- Mechanical, Ultrasound Other Referrals/Consults Referrals/Consults Recommended recommended pt follow-up with PCP Next Visit Focus/Plan Next Note Type Treatment Note Next Visit Plan continue to address c/o stiffness Plan of Care Dates Plan of Care Start Date 07/06/20 Plan of Care End Date 07/29/20 Electronically Signed by: Skye Correa, PT 07/06/20 7722 Please Sign and Return: I have reviewed this Plan of Care and certify that the skilled therapy services above are required to meet the patient?s needs. Physician Signature Date Printed Name and Credentials
--- NOTE | 2020-07-08 13:45 | PT.OTN ---
Current Diagnoses Osteoarthritis of hip, unspecified (07/08/20) Pain in right hip (07/08/20) Pain in left hip (07/08/20) Intervertebral disc disorders with myelopathy, lumbar region (07/08/20) Lumbago with sciatica, unspecified side (07/08/20) Physical Therapy Treatment Note PT-OP-A Visit Information Start: 08/21/19 15:30 Freq: Status: Active Protocol: Document 07/08/20 13:45 DLM (Rec: 07/08/20 19:17 DLM [id number]) Out-Patient Physical Therapy Visit Information Visit Information Visit Type Treatment Note Visit Note 8 more visits allowed by insurance benefits Visit Start Time 13:45 Visit Stop Time 14:30 Total Visit Minutes 45 Visit Number 58 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 Pt reports she has twice had a partial dislocation of her right hip, happening once in the 90s and once in the last decade. 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 Pt notes that this caused so much degeneration in my knees that when I was in my 30s, I couldn't go up and down stairs. Pt reports that since beginning Glucosamine and chondroitin, this has faded, and she is more mobile. She has recently been suffering an increase in bilateral posterior hip pain, especially with extended sitting, or trying to stand up after extended sitting. Pt also reports burning in the back of her hips, L>R. Pt reports that her PCP recently increased her Celebrex, which helped some, but just this past weekend, took a ferry to [place], and after sitting/ lying down for the trip, could barely walk off the ferry she was so stiff and sore. She is currently feeling improved, but everything just feels so tight. Prior Treatments and Tests Hip x-ray: IMPRESSION: Mild bilateral hip degeneration, probably age-appropriate. If the patient's pain or other symptoms persist, consider further evaluation with MRI. Per: Danny Mccullough M.D. on 08/2019 Lumbar x-ray: IMPRESSION: Multilevel moderate lumbar spondylosis and facet arthropathy. Levoscoliosis. Per: Danny Mccullough M.D. on 08/2019 Future Testing and Treatments Planned Possible further evaluation with MRI, per radiologist report PT-OP-C Subjective Start: 08/21/19 15:30 Freq: Status: Active Protocol: Document 07/08/20 13:45 DLM (Rec: 07/08/20 19:17 DLM [id number]) OP-PT Subjective Patient Comments Patient Comments She gets intermittent symptoms in her LE's. She has none at his time. She feels stiff in low back today. PT-OP-F Manual Assessment Start: 08/21/19 15:30 Freq: Status: Active Protocol: Document 07/01/20 16:05 DCW (Rec: 07/01/20 16:37 DCW [id number]) Manual Assessments Soft Tissue Assessment Soft Tissue Mobility Assessment Tenderness to palpation 1/4 - Complaint of Pain: L QL, Bilateral piriformis, bilateral psoas Moderate-severe tone along bilateral paraspinals, L>R Joint Mobility Assessment Joint Mobility Assessment Hypomobility throughout lumbar spine. Hypermobility of left tibiotalar joint PT-OP-G Mobility & Gait Start: 11/12/19 17:28 Freq: Status: Active Protocol: Document 07/01/20 16:05 DCW (Rec: 07/01/20 16:37 DCW [id number]) OP Gait Assessment Comments Gait Comments Remaining left lateral trunk flexion at rest and with gait, likely secondary to natural mild scoliosis PT-OP-K Range of Motion Start: 08/21/19 15:30 Freq: Status: Active Protocol: Document 07/01/20 16:05 DCW (Rec: 07/01/20 16:37 DCW [id number]) Lumbar Spine Range of Motion Lumbar Spine Active Degrees Testing Position Standing Flexion 70 Extension 10 ROM Limitations Soft Tissue Tightness,Muscle Tone,Pain Comments Improved lumbar mobility, still overuse of Thoracic spine mobility in flexion and extension PT-OP-L Special Tests Start: 08/21/19 15:30 Freq: Status: Active Protocol: Document 07/01/20 16:05 DCW (Rec: 07/01/20 16:37 DCW [id number]) Special Tests Hip Special Tests RAMONA Test Results Negative Other Special Tests Special Tests Accessory muscle breathing greatly reduced, only present with disctraction during heavy exercise PT-OP-M Strength Start: 08/21/19 15:30 Freq: Status: Active Protocol: Document 07/01/20 16:05 DCW (Rec: 07/01/20 16:37 DCW [id number]) Hip Strength Hip Manual Muscle Testing Bilateral Flexion (L2) 5 Normal Extension (S1) 5 Normal Abduction 4 Good Adduction 4 Good Knee Strength Knee Manual Muscle Testing Bilateral Flexion (S2) 4+ Good+ Extension (L3) 4+ Good+ PT-OP-Q Treatments Start: 08/21/19 15:30 Freq: Status: Active Protocol: Document 07/08/20 13:45 DLM (Rec: 07/08/20 19:17 DLM [id number]) Cardio Equipment Elliptical Duration (Minutes) 6 Resistance 6 Therapeutic Exercises Supine Exercises HS, adductor, ITb stretch Supine Exercise Name hip adductor stretching Side bilateral Resistance hooklying Equipment Used passive Reps/Minutes 3 reps x 30 sec each diaphramatic breathing with activity Supine Exercise Name reviewed during exercises single knee fall out Supine Exercise Name single limb fall out with core stabalization Side bilateral Reps/Minutes 10 reps each side Prone Exercises Child Pose Prone Exercise Name child pose Reps/Minutes 30 sec x 3 reps Comments improved low back tightness Sidelying Exercises 4 Sidelying Exercise Name triple threat Side bilateral Reps/Minutes she reports performed at home 2 Sidelying Exercise Name Reverse Clamshells Side bilateral Resistance Lv 2 Equipment Used T-band Reps/Minutes she reports performed at home 1 Sidelying Exercise Name Clamshells Side bilateral Resistance Lv 2 Equipment Used T-band Reps/Minutes she reports performed at home Manual Therapy Treatment Soft Tissue Mobilization QL Body Location B QL Mobilization Type Sustained Pressure,Trigger Point Release Intensity/Depth Deep Body Position Prone PF, glut med Body Location Gluts Mobilization Type Strumming,Sustained Pressure Intensity/Depth Moderate Body Position Prone Self-Care/Home Management Treatment Education Patient Education Home Exercise Program,Pain Management Other Education reviewed HEP and management of her symptoms at home PT-OP-T Assessment and Plan Start: 08/21/19 15:30 Freq: Status: Active Protocol: Document 07/08/20 13:45 DLM (Rec: 07/08/20 19:17 DLM [id number]) Physical Therapy Assessment Goals Three Impairment 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) Pt to tolerate dancing for 45 minutes without increasing her pain LTG Duration 07/29/20 - improving Two Impairment Pt unable to sit in her car longer than 30 minutes without moderate pain Retirement Goal (LTG) Pt to tolerate sitting in her car for 60 minutes with pain < 4/10 LTG Duration 07/29/20 One Impairment Pt does not have an appropriate HEP Short Term Goal (STG) Pt to be independent and compliant with an appropriate HEP STG Duration Met Progress Towards Goals Progress Towards Goals Progressing Toward Goals Assessment Summary Assessment She tolerated treatment well with reports of less stiffness after stretching and manual therapy. Pt reports she is more confortable driving her new car with a more comfortable seat. She reports good compliance with HEP. Physical Therapy Plan Frequency and Duration Frequency of Treatment 2x/Week Duration of Treatment 4 weeks Plan of Care Start Date 07/06/20 Plan of Care End Date 07/29/20 Therapeutic Interventions Therapeutic Interventions Aquatic Therapy,Home Exercise Program,Joint Mobilizations, Manual Therapy,Patient/ Caregiver Education,Self-Care/ Home Management,Soft Tissue Mobilization,Therapeutic Activities,Therapeutic Exercises Modalities Cold Pack/Ice Massage,Electric Stimulation,Hot Packs, Traction- Mechanical, Ultrasound Next Visit Focus/Plan Next Note Type Treatment Note Next Visit Plan pt has f/u with physician , continue to address ongoing stiffness
--- NOTE | 2020-07-13 10:30 | PT.OTN ---
Current Diagnoses Osteoarthritis of hip, unspecified (07/13/20) Pain in right hip (07/13/20) Pain in left hip (07/13/20) Intervertebral disc disorders with myelopathy, lumbar region (07/13/20) Lumbago with sciatica, unspecified side (07/13/20) Physical Therapy Treatment Note PT-OP-A Visit Information Start: 08/21/19 15:30 Freq: Status: Active Protocol: Document 07/13/20 09:48 DCW (Rec: 07/13/20 10:30 DCW [id number]) Out-Patient Physical Therapy Visit Information Visit Information Visit Type Treatment Note Visit Start Time 09:48 Visit Stop Time 10:30 Total Visit Minutes 42 Visit Number 59 Evaluation Information Evaluation Date 08/21/19 PT-OP-B Current Condition Start: 08/21/19 15:30 Freq: Status: Active Protocol: Document 08/21/19 15:30 DCW (Rec: 08/21/19 17:32 DCW [id number]) Current Condition History of Current Condition Onset Date Multi-year history Current Complaints low back and bilateral hip pain History of Current Condition Pt is a 58 year old female with a long history of low back and hip pain. Pt reports she has twice had a partial dislocation of her right hip, happening once in the 90s and once in the last decade. 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 Pt notes that this caused so much degeneration in my knees that when I was in my 30s, I couldn't go up and down stairs. Pt reports that since beginning Glucosamine and chondroitin, this has faded, and she is more mobile. She has recently been suffering an increase in bilateral posterior hip pain, especially with extended sitting, or trying to stand up after extended sitting. Pt also reports burning in the back of her hips, L>R. Pt reports that her PCP recently increased her Celebrex, which helped some, but just this past weekend, took a ferry to [place], and after sitting/ lying down for the trip, could barely walk off the ferry she was so stiff and sore. She is currently feeling improved, but everything just feels so tight. Prior Treatments and Tests Hip x-ray: IMPRESSION: Mild bilateral hip degeneration, probably age-appropriate. If the patient's pain or other symptoms persist, consider further evaluation with MRI. Per: Danny Mccullough M.D. on 08/2019 Lumbar x-ray: IMPRESSION: Multilevel moderate lumbar spondylosis and facet arthropathy. Levoscoliosis. Per: Danny Mccullough M.D. on 08/2019 Future Testing and Treatments Planned Possible further evaluation with MRI, per radiologist report PT-OP-C Subjective Start: 08/21/19 15:30 Freq: Status: Active Protocol: Document 07/13/20 09:48 DCW (Rec: 07/13/20 10:30 DCW [id number]) OP-PT Subjective Patient Comments Patient Comments Pt reports she has a referral for an MRI coming up soon, although it is not scheduled yet. PT-OP-F Manual Assessment Start: 08/21/19 15:30 Freq: Status: Active Protocol: Document 07/01/20 16:05 DCW (Rec: 07/01/20 16:37 DCW [id number]) Manual Assessments Soft Tissue Assessment Soft Tissue Mobility Assessment Tenderness to palpation 1/4 - Complaint of Pain: L QL, Bilateral piriformis, bilateral psoas Moderate-severe tone along bilateral paraspinals, L>R Joint Mobility Assessment Joint Mobility Assessment Hypomobility throughout lumbar spine. Hypermobility of left tibiotalar joint PT-OP-G Mobility & Gait Start: 11/12/19 17:28 Freq: Status: Active Protocol: Document 07/01/20 16:05 DCW (Rec: 07/01/20 16:37 DCW [id number]) OP Gait Assessment Comments Gait Comments Remaining left lateral trunk flexion at rest and with gait, likely secondary to natural mild scoliosis PT-OP-K Range of Motion Start: 08/21/19 15:30 Freq: Status: Active Protocol: Document 07/01/20 16:05 DCW (Rec: 07/01/20 16:37 DCW [id number]) Lumbar Spine Range of Motion Lumbar Spine Active Degrees Testing Position Standing Flexion 70 Extension 10 ROM Limitations Soft Tissue Tightness,Muscle Tone,Pain Comments Improved lumbar mobility, still overuse of Thoracic spine mobility in flexion and extension PT-OP-L Special Tests Start: 08/21/19 15:30 Freq: Status: Active Protocol: Document 07/01/20 16:05 DCW (Rec: 07/01/20 16:37 DCW [id number]) Special Tests Hip Special Tests RAMONA Test Results Negative Other Special Tests Special Tests Accessory muscle breathing greatly reduced, only present with disctraction during heavy exercise PT-OP-M Strength Start: 08/21/19 15:30 Freq: Status: Active Protocol: Document 07/01/20 16:05 DCW (Rec: 07/01/20 16:37 DCW [id number]) Hip Strength Hip Manual Muscle Testing Bilateral Flexion (L2) 5 Normal Extension (S1) 5 Normal Abduction 4 Good Adduction 4 Good Knee Strength Knee Manual Muscle Testing Bilateral Flexion (S2) 4+ Good+ Extension (L3) 4+ Good+ PT-OP-Q Treatments Start: 08/21/19 15:30 Freq: Status: Active Protocol: Document 07/13/20 09:48 DCW (Rec: 07/13/20 10:30 DCW [id number]) Cardio Equipment Elliptical Duration (Minutes) 5 Resistance 6 Gym Equipment Shuttle Balance Red Details Lateral weight shift Therapeutic Ball Pelvic circles Exercise Details Pelvic circles, pelvic tilts Ball Size/Color Green - 65 cm Body Position Sitting Manual Therapy Treatment Soft Tissue Mobilization Piriformis Body Location B Piriformis Mobilization Type Sustained Pressure Intensity/Depth Deep Body Position Prone QL Body Location B QL Mobilization Type Sustained Pressure,Trigger Point Release Intensity/Depth Deep Body Position Prone Psoas Body Location B psoas and TFL Mobilization Type Cross-Friction,Sustained Pressure Intensity/Depth Deep Body Position Supine PF, glut med Body Location Gluts Mobilization Type Strumming,Sustained Pressure Intensity/Depth Moderate Body Position Prone Manual Traction hip distraction Details R LE - Long [place] Body Position Supine PT-OP-T Assessment and Plan Start: 08/21/19 15:30 Freq: Status: Active Protocol: Document 07/13/20 09:48 DCW (Rec: 07/13/20 10:30 DCW [id number]) Physical Therapy Assessment Goals Three Impairment 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 Still stiff in the morning, able to loosen herself up somewhat, but then feels better after attending her PT sessions. Hopefully upcoming MRI will allow a more accurate Ddx of ongoing symptoms. Physical Therapy Plan Frequency and Duration Frequency of Treatment 2x/Week Duration of Treatment 4 weeks Plan of Care Start Date 07/06/20 Plan of Care End Date 07/29/20 Therapeutic Interventions Therapeutic Interventions Aquatic Therapy,Home Exercise Program,Joint Mobilizations, Manual Therapy,Patient/ Caregiver Education,Self-Care/ Home Management,Soft Tissue Mobilization,Therapeutic Activities,Therapeutic Exercises Modalities Cold Pack/Ice Massage,Electric Stimulation,Hot Packs, Traction- Mechanical, Ultrasound Next Visit Focus/Plan Next Note Type Treatment Note Next Visit Plan pt has f/u with physician , continue to address ongoing stiffness
--- NOTE | 2020-09-01 17:42 | PT.OPPOC ---
Physical, Occupational & Speech Therapy At [facility] Current Diagnoses Osteoarthritis of hip, unspecified (09/01/20) Pain in right hip (09/01/20) Pain in left hip (09/01/20) Intervertebral disc disorders with myelopathy, lumbar region (09/01/20) Lumbago with sciatica, unspecified side (09/01/20) Visit Care Team Role Provider Type Jersey Price MD Attending Provider Physician Primary Care Provider Specialty: [facility] Address: [address] [place] [address], [facility] Email: [email or web address] Plan Of Care PT-OP-T Assessment and Plan Start: 08/21/19 15:30 Freq: Status: Active Protocol: Document 09/01/20 15:17 DCW (Rec: 09/01/20 17:42 DCW [id number]) Physical Therapy Assessment Goals Three Impairment Pt unable to go out dancing with her Varnish Melter Goal (LTG) Pt to tolerate dancing for 45 minutes without increasing her pain LTG Duration 07/29/20 - improving Two Impairment Pt unable to sit in her car longer than 30 minutes without moderate pain Correction Goal (LTG) Pt to tolerate sitting in her car for 60 minutes with pain < 4/10 LTG Duration 07/29/20 One Impairment Pt does not have an appropriate HEP Short Term Goal (STG) Pt to be independent and compliant with an appropriate HEP STG Duration Met Assessment Summary Assessment Pt has plateaued with current therapy. With recent MRI results, pt reports upcoming surgical intervention is very likely. Pt will be discharged from skilled therapy at this time, with the understanding that she will return either after surgery, or for pre- surgical strengthening next year. Physical Therapy Plan Frequency and Duration Frequency of Treatment 1x/Week Duration of Treatment 1 day Plan of Care Start Date 09/01/20 Plan of Care End Date 09/02/20 Therapeutic Interventions Therapeutic Interventions Aquatic Therapy,Home Exercise Program,Joint Mobilizations, Manual Therapy,Patient/ Caregiver Education,Self-Care/ Home Management,Soft Tissue Mobilization,Therapeutic Activities,Therapeutic Exercises Modalities Cold Pack/Ice Massage,Electric Stimulation,Hot Packs, Traction- Mechanical, Ultrasound Discharge Physical Therapy Discharge Reasons Plateau in Progress Next Visit Focus/Plan Next Note Type Discharge Summary Plan of Care Dates Plan of Care Start Date 09/01/20 Plan of Care End Date 09/02/20 Electronically Signed by: Rudi Doyle, PT 09/03/20 2165 Please Sign and Return: I have reviewed this Plan of Care and certify that the skilled therapy services above are required to meet the patient?s needs. Physician Signature Date Printed Name and Credentials Clinical Instructor Signature Printed Name and Credentials
--- NOTE | 2020-09-01 17:42 | PT.OTN ---
Current Diagnoses Osteoarthritis of hip, unspecified (09/01/20) Pain in right hip (09/01/20) Pain in left hip (09/01/20) Intervertebral disc disorders with myelopathy, lumbar region (09/01/20) Lumbago with sciatica, unspecified side (09/01/20) Physical Therapy Treatment Note PT-OP-A Visit Information Start: 08/21/19 15:30 Freq: Status: Active Protocol: Document 09/01/20 15:17 DCW (Rec: 09/01/20 17:42 DCW [id number]) Out-Patient Physical Therapy Visit Information Visit Information Visit Type Treatment Note Visit Start Time 15:17 Visit Stop Time 16:00 Total Visit Minutes 43 Visit Number 60 Evaluation Information Evaluation Date 08/21/19 PT-OP-B Current Condition Start: 08/21/19 15:30 Freq: Status: Active Protocol: Document 08/21/19 15:30 DCW (Rec: 08/21/19 17:32 DCW [id number]) Current Condition History of Current Condition Onset Date Multi-year history Current Complaints low back and bilateral hip pain History of Current Condition Pt is a 58 year old female with a long history of low back and hip pain. Pt reports she has twice had a partial dislocation of her right hip, happening once in the 90s and once in the last decade. 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 Pt notes that this caused so much degeneration in my knees that when I was in my 30s, I couldn't go up and down stairs. Pt reports that since beginning Glucosamine and chondroitin, this has faded, and she is more mobile. She has recently been suffering an increase in bilateral posterior hip pain, especially with extended sitting, or trying to stand up after extended sitting. Pt also reports burning in the back of her hips, L>R. Pt reports that her PCP recently increased her Celebrex, which helped some, but just this past weekend, took a ferry to [place], and after sitting/ lying down for the trip, could barely walk off the ferry she was so stiff and sore. She is currently feeling improved, but everything just feels so tight. Prior Treatments and Tests Hip x-ray: IMPRESSION: Mild bilateral hip degeneration, probably age-appropriate. If the patient's pain or other symptoms persist, consider further evaluation with MRI. Per: Danny Mccullough M.D. on 08/2019 Lumbar x-ray: IMPRESSION: Multilevel moderate lumbar spondylosis and facet arthropathy. Levoscoliosis. Per: Danny Mccullough M.D. on 08/2019 Future Testing and Treatments Planned Possible further evaluation with MRI, per radiologist report PT-OP-C Subjective Start: 08/21/19 15:30 Freq: Status: Active Protocol: Document 09/01/20 15:17 DCW (Rec: 09/01/20 15:23 DCW [id number]) OP-PT Subjective Patient Comments Patient Comments Pt returns today after her recent MRI. Reports she should be getting an injection within the next 1-2 weeks. The orthopedic surgeon said I' m probably looking at a laminectomy in my lumbar region. PT-OP-F Manual Assessment Start: 08/21/19 15:30 Freq: Status: Active Protocol: Document 07/01/20 16:05 DCW (Rec: 07/01/20 16:37 DCW [id number]) Manual Assessments Soft Tissue Assessment Soft Tissue Mobility Assessment Tenderness to palpation 1/4 - Complaint of Pain: L QL, Bilateral piriformis, bilateral psoas Moderate-severe tone along bilateral paraspinals, L>R Joint Mobility Assessment Joint Mobility Assessment Hypomobility throughout lumbar spine. Hypermobility of left tibiotalar joint PT-OP-G Mobility & Gait Start: 11/12/19 17:28 Freq: Status: Active Protocol: Document 07/01/20 16:05 DCW (Rec: 07/01/20 16:37 DCW [id number]) OP Gait Assessment Comments Gait Comments Remaining left lateral trunk flexion at rest and with gait, likely secondary to natural mild scoliosis PT-OP-K Range of Motion Start: 08/21/19 15:30 Freq: Status: Active Protocol: Document 07/01/20 16:05 DCW (Rec: 07/01/20 16:37 DCW [id number]) Lumbar Spine Range of Motion Lumbar Spine Active Degrees Testing Position Standing Flexion 70 Extension 10 ROM Limitations Soft Tissue Tightness,Muscle Tone,Pain Comments Improved lumbar mobility, still overuse of Thoracic spine mobility in flexion and extension PT-OP-L Special Tests Start: 08/21/19 15:30 Freq: Status: Active Protocol: Document 07/01/20 16:05 DCW (Rec: 07/01/20 16:37 DCW [id number]) Special Tests Hip Special Tests RAMONA Test Results Negative Other Special Tests Special Tests Accessory muscle breathing greatly reduced, only present with disctraction during heavy exercise PT-OP-M Strength Start: 08/21/19 15:30 Freq: Status: Active Protocol: Document 07/01/20 16:05 DCW (Rec: 07/01/20 16:37 DCW [id number]) Hip Strength Hip Manual Muscle Testing Bilateral Flexion (L2) 5 Normal Extension (S1) 5 Normal Abduction 4 Good Adduction 4 Good Knee Strength Knee Manual Muscle Testing Bilateral Flexion (S2) 4+ Good+ Extension (L3) 4+ Good+ PT-OP-Q Treatments Start: 08/21/19 15:30 Freq: Status: Active Protocol: Document 09/01/20 15:17 DCW (Rec: 09/01/20 17:42 DCW [id number]) Manual Therapy Treatment Soft Tissue Mobilization Psoas Body Location B psoas and TFL Mobilization Type Cross-Friction,Sustained Pressure Intensity/Depth Deep Body Position Supine Self-Care/Home Management Treatment Education Other Education Review of MRI results, explained anatomy, discussed future treatment options PT-OP-T Assessment and Plan Start: 08/21/19 15:30 Freq: Status: Active Protocol: Document 09/01/20 15:17 DCW (Rec: 09/01/20 17:42 DCW [id number]) Physical Therapy Assessment Goals Three Impairment Pt unable to go out dancing with her Residential Goal (LTG) Pt to tolerate dancing for 45 minutes without increasing her pain LTG Duration 07/29/20 - improving Two Impairment Pt unable to sit in her car longer than 30 minutes without moderate pain Lawn Sprinkler Servicer Goal (LTG) Pt to tolerate sitting in her car for 60 minutes with pain < 4/10 LTG Duration 07/29/20 One Impairment Pt does not have an appropriate HEP Short Term Goal (STG) Pt to be independent and compliant with an appropriate HEP STG Duration Met Assessment Summary Assessment Pt has plateaued with current therapy. With recent MRI results, pt reports upcoming surgical intervention is very likely. Pt will be discharged from skilled therapy at this time, with the understanding that she will return either after surgery, or for pre- surgical strengthening next year. Physical Therapy Plan Frequency and Duration Frequency of Treatment 1x/Week Duration of Treatment 1 day Plan of Care Start Date 09/01/20 Plan of Care End Date 09/02/20 Therapeutic Interventions Therapeutic Interventions Aquatic Therapy,Home Exercise Program,Joint Mobilizations, Manual Therapy,Patient/ Caregiver Education,Self-Care/ Home Management,Soft Tissue Mobilization,Therapeutic Activities,Therapeutic Exercises Modalities Cold Pack/Ice Massage,Electric Stimulation,Hot Packs, Traction- Mechanical, Ultrasound Discharge Physical Therapy Discharge Reasons Plateau in Progress Next Visit Focus/Plan Next Note Type Discharge Summary
== END 2020-09-08 12:13 | disposition home or self-care (01) ==
LOC: PHYS 15:15
PROVIDERS: PCP Family Medicine; Visit Provider Family Medicine
DX: M25.552 Pain in left hip (principal); M25.551 Pain in right hip; M54.40 Lumbago with sciatica, unspecified side; M51.06 Intervertebral disc disorders with myelopathy, lumbar region; M16.9 Osteoarthritis of hip, unspecified
CPT/HCPCS: 97110; 97112; 97116; 97140; 97162; 97530; 97535

== ENCOUNTER 2021-01-12 14:30 | Outpatient (RCR) | payer OTHER, SELFPAY ==
--- NOTE | 2020-09-24 12:00 | PT.OIE ---
Current Diagnoses Scoliosis, unspecified (09/24/20) Spondylolisthesis, lumbar region (09/24/20) Spinal stenosis, lumbar region with neurogenic claudication (09/24/20) Visit Care Team Role Provider Type Melanie Kebede MD Family Provider Physician Primary Care Provider Specialty: Family Practice Address: [address] [place] [address], [facility] [place], [address] Email: [email or web address] Isaías Landeros MD Attending Provider Physician Referring Provider Specialty: Orthopedic Surgery Address: [address] [place] [address], [id number] Email: [email or web address] Physical Therapy Initial Evaluation PT-OP-A Visit Information Start: 09/24/20 16:57 Freq: Status: Active Protocol: Document 09/24/20 11:15 DCW (Rec: 09/27/20 10:09 [facility] [id number]) Out-Patient Physical Therapy Visit Information Visit Information Visit Type Initial Evaluation Visit Start Time 11:15 Visit Stop Time 12:00 Total Visit Minutes 45 Visit Number 1 Number of COAGULATION OPERATOR Visits 0 Evaluation Information Evaluation Date 09/24/20 PT-OP-B Current Condition Start: 09/24/20 16:57 Freq: Status: Active Protocol: Document 09/24/20 11:15 DCW (Rec: 09/27/20 10:09 [facility] [id number]) Current Condition History of Current Condition Onset Date Multi-year history Current Complaints Low back pain, History of Current Condition Pt is a 59 year old female with a long history of low back and hip pain. Pt was very recently being seen at this clinic for low back and hip pain, with some improvement, but overall continuing pain and stiffness, especially upon rising in the morning. Pt has had recent MRIs of her lumbar spine and hip, which show a number of different injuries, including degenerative changes , spinal stenosis, foraminal narrowing, anterolithesis, and a chronic/degenerative labral tear. Following these MRI results, she has decided that she will likely be undergoing surgerical intervention (lami- fusion L3-S1) within the next few months, and feels like her outcome will be the best if she works on core strengthening and stability prior to surgery. Pt notes that on the morning of 09/22/20, she received a steroid injection, notes her back is feeling pretty good. I had not realized how much it had been affecting me, sapping my energy. Additionally, pt has begun using CBD tincture to help her sleep, and CBD/THC mints for pain, which really seem to help. Prior Treatments and Tests Lumbar MRI: IMPRESSION: 1. Multilevel degenerative changes. 2. Multilevel spinal stenosis most severe at L3-4, L4-5 secondary to anterolithesis and facet/ ligamentum flavum hypertrophy. 3. Mutlilevel foraminal narrowing most severe at L3-4, L4-5, L5-S1 secondary to facet arthropathy and anterolithesis. per Olya Contreras M.D. on 07/30/2020 Hip MRI: IMPRESSION: -Anterosuperior labral tear which could be chronic/ degenerative. -Age-indeterminate mild hamstring origin tendinopathy. -Low-grade strain at the insertion of the left piriformis and obturator internus muscles. -Minimal left subtrochanteric bursal fluid/edema. Per Danny Mccullough M.D. on Future Testing and Treatments Planned Pt reports a follow-up with Dr Landeros on 10/08/20 for decision on surgery. PT-OP-C Subjective Start: 09/24/20 16:57 Freq: Status: Active Protocol: Document 09/24/20 11:15 DCW (Rec: 09/27/20 10:09 [facility] [id number]) OP-PT Subjective Patient Comments Patient Comments Pt would like to focus mainly on core and back strengthening to improve outcome of any surgery she may have in the near future. Patient Questionnaires Oswestry Low Back Index Oswestry Score 22/50 = 44% PT-OP-F Manual Assessment Start: 09/24/20 16:57 Freq: Status: Active Protocol: Document 09/24/20 11:15 DCW (Rec: 09/27/20 10:16 DC [id number]) Manual Assessments Soft Tissue Assessment Soft Tissue Mobility Assessment Moderate tone and Tenderness to palpation 2/4: Pain with wincing bilateral QL, bilateral lumbar paraspinals, bilateral piriformis Tenderness to palpation 3/4: Wincing and withdraw along bilateral psoas PT-OP-K Range of Motion Start: 09/24/20 16:57 Freq: Status: Active Protocol: Document 09/24/20 11:15 DCW (Rec: 09/27/20 10:16 DC [id number]) Lumbar Spine Range of Motion Lumbar Spine Active Degrees Testing Position Standing Flexion 90 Extension 0 Lateral Flexion Left 50 Lateral Flexion Right 47 Comments Lateral flexion measured in cm from fingertips to floor PT-OP-L Special Tests Start: 09/24/20 16:57 Freq: Status: Active Protocol: Document 09/24/20 11:15 DCW (Rec: 09/27/20 10:16 DCW [id number]) Special Tests Lumbar Spine Special Tests A-P Shearing Test Results Negative Standing Flexion Test Results Negative Straight Leg Raise Test Results Negative Slump Test Results Negative Hip Special Tests Lateral SI Compression Test Results Negative Piriformis Test Results Negative RAMONA Test Results Bilateral ipsilateral anterior pain PT-OP-M Strength Start: 09/24/20 16:57 Freq: Status: Active Protocol: Document 09/24/20 11:15 DCW (Rec: 09/27/20 10:16 DCW [id number]) Trunk Strength Trunk Manual Muscle Testing Core Stabilization Pt able to properly PPT and contract TrA, perform SLR, back beging to arch, pt unable to hold. 4-/5 Hip Strength Hip Manual Muscle Testing Right Flexion (L2) 4 Good Extension (S1) 4- Good- Abduction 4- Good- Adduction 4+ Good+ External Rotation 4+ Good+ Internal Rotation 4+ Good+ Left Flexion (L2) 4- Good- Extension (S1) 4- Good- Abduction 4- Good- Adduction 4+ Good+ External Rotation 4+ Good+ Internal Rotation 4+ Good+ Knee Strength Knee Manual Muscle Testing Bilateral Flexion (S2) 5 Normal Extension (L3) 5 Normal Ankle/Foot Strength Ankle and Foot Manual Muscle Testing Bilateral Dorsiflexion (L4) 5 Normal Plantarflexion (S1) 5 Normal PT-OP-T Assessment and Plan Start: 09/24/20 16:57 Freq: Status: Active Protocol: Document 09/24/20 11:15 DCW (Rec: 09/27/20 14:26 DCW [id number]) Physical Therapy Assessment Rehab Potential Rehabilitation Potential Good Evaluation Complexity Number of Personal Factors/Comorbidities 1-2 Number of Body Systems Impaired 1-2 Clinical Presentation at Evaluation Stable Impairments Impairments Activity Tolerance,Functional Mobility,Pain,ROM,Soft Tissue Mobility,Strength Goals Three Impairment Lumbar hypomobility results in no extension ROM through lumbar spine [facility] Goal (LTG) Pt to demonstrate ability to extend lumbar spine 15? to show increased functional mobility LTG Duration 11/22/20 Two Impairment Core weakness results in decreased low back stability Educational Speech Language Clinician Goal (LTG) Pt to present with improved core strength to 4+/5 to improve low back and hip stability in order to improve post-surgical outcomes. LTG Duration 11/22/20 One Impairment Pt does not have an appropriate HEP Short Term Goal (STG) Pt to be independent and compliant with an appropriate HEP STG Duration 10/25/20 Assessment Summary Assessment Pt presents with general core weakness and instability, degenerative changes in her low back and hips, and decreased lumbar mobility. Pt will likely undergo a L3-S1 Laminectomy and fusion within the next few months, and would benefit from skilled therapy to improve pre-surgical strength and mobility to improve post-surgical outcomes . In prior course of PT, pt was able to demonstrate ability to improve LE strength , change gait pattern, improve diphram breathing, and responded well to STM. Physical Therapy Plan Frequency and Duration Frequency of Treatment 2x/Week Duration of Treatment two months Plan of Care Start Date 09/24/20 Plan of Care End Date 11/22/20 Therapeutic Interventions Therapeutic Interventions Home Exercise Program,Joint Mobilizations,Manual Therapy, Neuromuscular Re-education, Patient/Caregiver Education, Self-Care/Home Management,Soft Tissue Mobilization, Therapeutic Activities, Therapeutic Exercises Modalities Cold Pack/Ice Massage,Electric Stimulation,Hot Packs, Ultrasound Next Visit Focus/Plan Next Note Type Treatment Note Next Visit Plan Core strengthening, hip strengthening, STM, flexibility/stretching
--- NOTE | 2020-09-24 12:00 | PT.OPPOC ---
Physical, Occupational & Speech Therapy At [facility] Current Diagnoses Scoliosis, unspecified (09/24/20) Spondylolisthesis, lumbar region (09/24/20) Spinal stenosis, lumbar region with neurogenic claudication (09/24/20) Visit Care Team Role Provider Type Melanie Kebede MD Family Provider Physician Primary Care Provider Specialty: Family Practice Address: [address] [place] [address], [facility], [place], [address] Email: [email or web address] Isaías Landeros MD Attending Provider Physician Referring Provider Specialty: Orthopedic Surgery Address: [address] [place] [address], [address] Email: [email or web address] Plan Of Care PT-OP-T Assessment and Plan Start: 09/24/20 16:57 Freq: Status: Active Protocol: Document 09/24/20 11:15 DCW (Rec: 09/27/20 14:26 DCW [id number]) Physical Therapy Assessment Rehab Potential Rehabilitation Potential Good Evaluation Complexity Number of Personal Factors/Comorbidities 1-2 Number of Body Systems Impaired 1-2 Clinical Presentation at Evaluation Stable Impairments Impairments Activity Tolerance,Functional Mobility,Pain,ROM,Soft Tissue Mobility,Strength Goals Three Impairment Lumbar hypomobility results in no extension ROM through lumbar spine Network Applications Specialist Goal (LTG) Pt to demonstrate ability to extend lumbar spine 15? to show increased functional mobility LTG Duration 11/22/20 Two Impairment Core weakness results in decreased low back stability Skilled Nursing Goal (LTG) Pt to present with improved core strength to 4+/5 to improve low back and hip stability in order to improve post-surgical outcomes. LTG Duration 11/22/20 One Impairment Pt does not have an appropriate HEP Short Term Goal (STG) Pt to be independent and compliant with an appropriate HEP STG Duration 10/25/20 Assessment Summary Assessment Pt presents with general core weakness and instability, degenerative changes in her low back and hips, and decreased lumbar mobility. Pt will likely undergo a L3-S1 Laminectomy and fusion within the next few months, and would benefit from skilled therapy to improve pre-surgical strength and mobility to improve post-surgical outcomes . In prior course of PT, pt was able to demonstrate ability to improve LE strength , change gait pattern, improve diphram breathing, and responded well to STM. Physical Therapy Plan Frequency and Duration Frequency of Treatment 2x/Week Duration of Treatment two months Plan of Care Start Date 09/24/20 Plan of Care End Date 11/22/20 Therapeutic Interventions Therapeutic Interventions Home Exercise Program,Joint Mobilizations,Manual Therapy, Neuromuscular Re-education, Patient/Caregiver Education, Self-Care/Home Management,Soft Tissue Mobilization, Therapeutic Activities, Therapeutic Exercises Modalities Cold Pack/Ice Massage,Electric Stimulation,Hot Packs, Ultrasound Next Visit Focus/Plan Next Note Type Treatment Note Next Visit Plan Core strengthening, hip strengthening, STM, flexibility/stretching Plan of Care Dates Plan of Care Start Date 09/24/20 Plan of Care End Date 11/22/20 Electronically Signed by: Rudi Doyle, PT 09/27/20 [id number] Please Sign and Return: I have reviewed this Plan of Care and certify that the skilled therapy services above are required to meet the patient?s needs. Physician Signature Date Printed Name and Credentials Clinical Instructor Signature Printed Name and Credentials
--- NOTE | 2020-09-29 14:30 | PT.OTN ---
Current Diagnoses Scoliosis, unspecified (09/29/20) Spondylolisthesis, lumbar region (09/29/20) Spinal stenosis, lumbar region with neurogenic claudication (09/29/20) Physical Therapy Treatment Note PT-OP-A Visit Information Start: 09/24/20 16:57 Freq: Status: Active Protocol: Document 09/29/20 13:45 DCW (Rec: 09/29/20 14:30 DCW [id number]) Out-Patient Physical Therapy Visit Information Visit Information Visit Type Treatment Note Visit Start Time 13:45 Visit Stop Time 14:30 Total Visit Minutes 45 Visit Number 2 Number of ATOMIC PHYSICS TEACHER Visits 0 Evaluation Information Evaluation Date 09/24/20 PT-OP-B Current Condition Start: 09/24/20 16:57 Freq: Status: Active Protocol: Document 09/24/20 11:15 DCW (Rec: 09/27/20 10:09 DCW [id number]) Current Condition History of Current Condition Onset Date Multi-year history Current Complaints Low back pain, History of Current Condition Pt is a 59 year old female with a long history of low back and hip pain. Pt was very recently being seen at this clinic for low back and hip pain, with some improvement, but overall continuing pain and stiffness, especially upon rising in the morning. Pt has had recent MRIs of her lumbar spine and hip, which show a number of different injuries, including degenerative changes , spinal stenosis, foraminal narrowing, anterolithesis, and a chronic/degenerative labral tear. Following these MRI results, she has decided that she will likely be undergoing surgerical intervention (lami- fusion L3-S1) within the next few months, and feels like her outcome will be the best if she works on core strengthening and stability prior to surgery. Pt notes that on the morning of 09/22/20, she received a steroid injection, notes her back is feeling pretty good. I had not realized how much it had been affecting me, sapping my energy. Additionally, pt has begun using CBD tincture to help her sleep, and CBD/THC mints for pain, which really seem to help. Prior Treatments and Tests Lumbar MRI: IMPRESSION: 1. Multilevel degenerative changes. 2. Multilevel spinal stenosis most severe at L3-4, L4-5 secondary to anterolithesis and facet/ ligamentum flavum hypertrophy. 3. Mutlilevel foraminal narrowing most severe at L3-4, L4-5, L5-S1 secondary to facet arthropathy and anterolithesis. per Olya Contreras M.D. on 07/30/2020 Hip MRI: IMPRESSION: -Anterosuperior labral tear which could be chronic/ degenerative. -Age-indeterminate mild hamstring origin tendinopathy. -Low-grade strain at the insertion of the left piriformis and obturator internus muscles. -Minimal left subtrochanteric bursal fluid/edema. Per Danny Mccullough M.D. on Future Testing and Treatments Planned Pt reports a follow-up with Dr Landeros on 10/08/20 for decision on surgery. PT-OP-C Subjective Start: 09/24/20 16:57 Freq: Status: Active Protocol: Document 09/29/20 13:45 DCW (Rec: 09/29/20 14:30 DCW [id number]) OP-PT Subjective Patient Comments Patient Comments Pt reports she spoke with Dr Israel yesterday, reports he said she is not headed toward hip replacement, is wearing down of the labrum, but he believes that her hip pain is likely more related to her back degeneration. PT-OP-F Manual Assessment Start: 09/24/20 16:57 Freq: Status: Active Protocol: Document 09/24/20 11:15 DCW (Rec: 09/27/20 10:16 DCW [id number]) Manual Assessments Soft Tissue Assessment Soft Tissue Mobility Assessment Moderate tone and Tenderness to palpation 2/4: Pain with wincing bilateral QL, bilateral lumbar paraspinals, bilateral piriformis Tenderness to palpation 3/4: Wincing and withdraw along bilateral psoas PT-OP-K Range of Motion Start: 09/24/20 16:57 Freq: Status: Active Protocol: Document 09/24/20 11:15 DCW (Rec: 09/27/20 10:16 DCW [id number]) Lumbar Spine Range of Motion Lumbar Spine Active Degrees Testing Position Standing Flexion 90 Extension 0 Lateral Flexion Left 50 Lateral Flexion Right 47 Comments Lateral flexion measured in cm from fingertips to floor PT-OP-L Special Tests Start: 09/24/20 16:57 Freq: Status: Active Protocol: Document 09/24/20 11:15 DCW (Rec: 09/27/20 10:16 DCW [id number]) Special Tests Lumbar Spine Special Tests A-P Shearing Test Results Negative Standing Flexion Test Results Negative Straight Leg Raise Test Results Negative Slump Test Results Negative Hip Special Tests Lateral SI Compression Test Results Negative Piriformis Test Results Negative RAMONA Test Results Bilateral ipsilateral anterior pain PT-OP-M Strength Start: 09/24/20 16:57 Freq: Status: Active Protocol: Document 09/24/20 11:15 DCW (Rec: 09/27/20 10:16 DCW [id number]) Trunk Strength Trunk Manual Muscle Testing Core Stabilization Pt able to properly PPT and contract TrA, perform SLR, back beging to arch, pt unable to hold. 4-/5 Hip Strength Hip Manual Muscle Testing Right Flexion (L2) 4 Good Extension (S1) 4- Good- Abduction 4- Good- Adduction 4+ Good+ External Rotation 4+ Good+ Internal Rotation 4+ Good+ Left Flexion (L2) 4- Good- Extension (S1) 4- Good- Abduction 4- Good- Adduction 4+ Good+ External Rotation 4+ Good+ Internal Rotation 4+ Good+ Knee Strength Knee Manual Muscle Testing Bilateral Flexion (S2) 5 Normal Extension (L3) 5 Normal Ankle/Foot Strength Ankle and Foot Manual Muscle Testing Bilateral Dorsiflexion (L4) 5 Normal Plantarflexion (S1) 5 Normal PT-OP-Q Treatments Start: 09/24/20 16:57 Freq: Status: Active Protocol: Document 09/29/20 13:45 DCW (Rec: 09/29/20 14:30 DCW [id number]) Therapeutic Exercises Supine Exercises air bike Supine Exercise Name PPT /c TrA contraction with Air Bike SLR Supine Exercise Name PPT /c TrA, SLR Side bilateral pelvic tilt/ neutral pelvis Supine Exercise Name TrA contraction Side bilateral Comments focus on PPT without lumbar extension trans ab Supine Exercise Name core march Side bilateral Reps/Minutes 3x5 Manual Therapy Treatment Soft Tissue Mobilization QL Body Location B QL Mobilization Type Sustained Pressure,Trigger Point Release Intensity/Depth Deep Body Position Prone Psoas Body Location B psoas and TFL Mobilization Type Cross-Friction,Sustained Pressure Intensity/Depth Deep Body Position Supine Manual Traction Lumbar Details Long [place] /c strap Body Position Supine PT-OP-T Assessment and Plan Start: 09/24/20 16:57 Freq: Status: Active Protocol: Document 09/29/20 13:45 DCW (Rec: 09/29/20 14:30 DCW [id number]) Physical Therapy Assessment Impairments Impairments Activity Tolerance,Functional Mobility,Pain,ROM,Soft Tissue Mobility,Strength Goals Three Impairment Lumbar hypomobility results in no extension ROM through lumbar spine Mcc Goal (LTG) Pt to demonstrate ability to extend lumbar spine 15? to show increased functional mobility LTG Duration 11/22/20 Two Impairment Core weakness results in decreased low back stability Mcc Goal (LTG) Pt to present with improved core strength to 4+/5 to improve low back and hip stability in order to improve post-surgical outcomes. LTG Duration 11/22/20 One Impairment Pt does not have an appropriate HEP Short Term Goal (STG) Pt to be independent and compliant with an appropriate HEP STG Duration 10/25/20 Assessment Summary Assessment Pt tolerated treatment well today, noted good lumbar distraction with long-axis traction. STM to QL and psoas helped decrease tone. Physical Therapy Plan Frequency and Duration Frequency of Treatment 2x/Week Duration of Treatment two months Plan of Care Start Date 09/24/20 Plan of Care End Date 11/22/20 Therapeutic Interventions Therapeutic Interventions Home Exercise Program,Joint Mobilizations,Manual Therapy, Neuromuscular Re-education, Patient/Caregiver Education, Self-Care/Home Management,Soft Tissue Mobilization, Therapeutic Activities, Therapeutic Exercises Modalities Cold Pack/Ice Massage,Electric Stimulation,Hot Packs, Ultrasound Next Visit Focus/Plan Next Note Type Treatment Note Next Visit Plan Core strengthening, hip strengthening, STM, flexibility/stretching
--- NOTE | 2020-10-01 15:15 | PT.OTN ---
Current Diagnoses Scoliosis, unspecified (10/01/20) Spondylolisthesis, lumbar region (10/01/20) Spinal stenosis, lumbar region with neurogenic claudication (10/01/20) Physical Therapy Treatment Note PT-OP-A Visit Information Start: 09/24/20 16:57 Freq: Status: Active Protocol: Document 10/01/20 14:36 DCW (Rec: 10/01/20 15:15 DCW [id number]) Out-Patient Physical Therapy Visit Information Visit Information Visit Type Treatment Note Visit Note 6 min late Visit Start Time 14:36 Visit Stop Time 15:15 Total Visit Minutes 39 Visit Number 3 Number of HELPER/DRIVER Visits 0 Evaluation Information Evaluation Date 09/24/20 PT-OP-B Current Condition Start: 09/24/20 16:57 Freq: Status: Active Protocol: Document 09/24/20 11:15 DCW (Rec: 09/27/20 10:09 DCW [id number]) Current Condition History of Current Condition Onset Date Multi-year history Current Complaints Low back pain, History of Current Condition Pt is a 59 year old female with a long history of low back and hip pain. Pt was very recently being seen at this clinic for low back and hip pain, with some improvement, but overall continuing pain and stiffness, especially upon rising in the morning. Pt has had recent MRIs of her lumbar spine and hip, which show a number of different injuries, including degenerative changes , spinal stenosis, foraminal narrowing, anterolithesis, and a chronic/degenerative labral tear. Following these MRI results, she has decided that she will likely be undergoing surgerical intervention (lami- fusion L3-S1) within the next few months, and feels like her outcome will be the best if she works on core strengthening and stability prior to surgery. Pt notes that on the morning of 09/22/20, she received a steroid injection, notes her back is feeling pretty good. I had not realized how much it had been affecting me, sapping my energy. Additionally, pt has begun using CBD tincture to help her sleep, and CBD/THC mints for pain, which really seem to help. Prior Treatments and Tests Lumbar MRI: IMPRESSION: 1. Multilevel degenerative changes. 2. Multilevel spinal stenosis most severe at L3-4, L4-5 secondary to anterolithesis and facet/ ligamentum flavum hypertrophy. 3. Mutlilevel foraminal narrowing most severe at L3-4, L4-5, L5-S1 secondary to facet arthropathy and anterolithesis. per Olya Contreras M.D. on 07/30/2020 Hip MRI: IMPRESSION: -Anterosuperior labral tear which could be chronic/ degenerative. -Age-indeterminate mild hamstring origin tendinopathy. -Low-grade strain at the insertion of the left piriformis and obturator internus muscles. -Minimal left subtrochanteric bursal fluid/edema. Per Danny Mccullough M.D. on Future Testing and Treatments Planned Pt reports a follow-up with Dr Landeros on 10/08/20 for decision on surgery. PT-OP-C Subjective Start: 09/24/20 16:57 Freq: Status: Active Protocol: Document 10/01/20 14:36 DCW (Rec: 10/01/20 15:15 DCW [id number]) OP-PT Subjective Patient Comments Patient Comments Pt reports she hurt her left shoulder last night, trying to push herself up from the couch. PT-OP-F Manual Assessment Start: 09/24/20 16:57 Freq: Status: Active Protocol: Document 09/24/20 11:15 DCW (Rec: 09/27/20 10:16 DCW [id number]) Manual Assessments Soft Tissue Assessment Soft Tissue Mobility Assessment Moderate tone and Tenderness to palpation 2/4: Pain with wincing bilateral QL, bilateral lumbar paraspinals, bilateral piriformis Tenderness to palpation 3/4: Wincing and withdraw along bilateral psoas PT-OP-K Range of Motion Start: 09/24/20 16:57 Freq: Status: Active Protocol: Document 09/24/20 11:15 DCW (Rec: 09/27/20 10:16 DCW [id number]) Lumbar Spine Range of Motion Lumbar Spine Active Degrees Testing Position Standing Flexion 90 Extension 0 Lateral Flexion Left 50 Lateral Flexion Right 47 Comments Lateral flexion measured in cm from fingertips to floor PT-OP-L Special Tests Start: 09/24/20 16:57 Freq: Status: Active Protocol: Document 09/24/20 11:15 DCW (Rec: 09/27/20 10:16 DCW [id number]) Special Tests Lumbar Spine Special Tests A-P Shearing Test Results Negative Standing Flexion Test Results Negative Straight Leg Raise Test Results Negative Slump Test Results Negative Hip Special Tests Lateral SI Compression Test Results Negative Piriformis Test Results Negative RAMONA Test Results Bilateral ipsilateral anterior pain PT-OP-M Strength Start: 09/24/20 16:57 Freq: Status: Active Protocol: Document 09/24/20 11:15 DCW (Rec: 09/27/20 10:16 DCW [id number]) Trunk Strength Trunk Manual Muscle Testing Core Stabilization Pt able to properly PPT and contract TrA, perform SLR, back beging to arch, pt unable to hold. 4-/5 Hip Strength Hip Manual Muscle Testing Right Flexion (L2) 4 Good Extension (S1) 4- Good- Abduction 4- Good- Adduction 4+ Good+ External Rotation 4+ Good+ Internal Rotation 4+ Good+ Left Flexion (L2) 4- Good- Extension (S1) 4- Good- Abduction 4- Good- Adduction 4+ Good+ External Rotation 4+ Good+ Internal Rotation 4+ Good+ Knee Strength Knee Manual Muscle Testing Bilateral Flexion (S2) 5 Normal Extension (L3) 5 Normal Ankle/Foot Strength Ankle and Foot Manual Muscle Testing Bilateral Dorsiflexion (L4) 5 Normal Plantarflexion (S1) 5 Normal PT-OP-Q Treatments Start: 09/24/20 16:57 Freq: Status: Active Protocol: Document 10/01/20 14:36 DCW (Rec: 10/01/20 15:15 DCW [id number]) Gym Equipment Sport Cord 1 Exercise Details Fwd/Retro walking vs resistance Cord/Resistance Red Therapeutic Exercises Supine Exercises bridge hip abd Supine Exercise Name Bridging /c Alternating knee extension trans ab Supine Exercise Name Bridging /c marching Side bilateral Manual Therapy Treatment Soft Tissue Mobilization QL Body Location B QL Mobilization Type Sustained Pressure,Trigger Point Release Intensity/Depth Deep Body Position Prone Psoas Body Location B psoas and TFL Mobilization Type Cross-Friction,Sustained Pressure Intensity/Depth Deep Body Position Supine Manual Traction Lumbar Details Long [place] /c strap Body Position Supine PT-OP-T Assessment and Plan Start: 09/24/20 16:57 Freq: Status: Active Protocol: Document 10/01/20 14:36 DCW (Rec: 10/01/20 15:15 DCW [id number]) Physical Therapy Assessment Impairments Impairments Activity Tolerance,Functional Mobility,Pain,ROM,Soft Tissue Mobility,Strength Goals Three Impairment Lumbar hypomobility results in no extension ROM through lumbar spine Care Home Goal (LTG) Pt to demonstrate ability to extend lumbar spine 15? to show increased functional mobility LTG Duration 11/22/20 Two Impairment Core weakness results in decreased low back stability Care Home Goal (LTG) Pt to present with improved core strength to 4+/5 to improve low back and hip stability in order to improve post-surgical outcomes. LTG Duration 11/22/20 One Impairment Pt does not have an appropriate HEP Short Term Goal (STG) Pt to be independent and compliant with an appropriate HEP STG Duration 10/25/20 Assessment Summary Assessment Pt showing improvement with core contraction during activities, bridging improving . Physical Therapy Plan Frequency and Duration Frequency of Treatment 2x/Week Duration of Treatment two months Plan of Care Start Date 09/24/20 Plan of Care End Date 11/22/20 Therapeutic Interventions Therapeutic Interventions Home Exercise Program,Joint Mobilizations,Manual Therapy, Neuromuscular Re-education, Patient/Caregiver Education, Self-Care/Home Management,Soft Tissue Mobilization, Therapeutic Activities, Therapeutic Exercises Modalities Cold Pack/Ice Massage,Electric Stimulation,Hot Packs, Ultrasound Next Visit Focus/Plan Next Note Type Treatment Note Next Visit Plan Core strengthening, hip strengthening, STM, flexibility/stretching
--- NOTE | 2020-10-06 16:47 | PT.OTN ---
Current Diagnoses Scoliosis, unspecified (10/06/20) Spondylolisthesis, lumbar region (10/06/20) Spinal stenosis, lumbar region with neurogenic claudication (10/06/20) Physical Therapy Treatment Note PT-OP-A Visit Information Start: 09/24/20 16:57 Freq: Status: Active Protocol: Document 10/06/20 16:05 DCW (Rec: 10/06/20 16:47 DCW [id number]) Out-Patient Physical Therapy Visit Information Visit Information Visit Type Treatment Note Visit Start Time 16:05 Visit Stop Time 16:45 Total Visit Minutes 40 Visit Number 4 Number of DRAW BENCH OPERATOR HELPER Visits 0 Evaluation Information Evaluation Date 09/24/20 PT-OP-B Current Condition Start: 09/24/20 16:57 Freq: Status: Active Protocol: Document 09/24/20 11:15 DCW (Rec: 09/27/20 10:09 DCW [id number]) Current Condition History of Current Condition Onset Date Multi-year history Current Complaints Low back pain, History of Current Condition Pt is a 59 year old female with a long history of low back and hip pain. Pt was very recently being seen at this clinic for low back and hip pain, with some improvement, but overall continuing pain and stiffness, especially upon rising in the morning. Pt has had recent MRIs of her lumbar spine and hip, which show a number of different injuries, including degenerative changes , spinal stenosis, foraminal narrowing, anterolithesis, and a chronic/degenerative labral tear. Following these MRI results, she has decided that she will likely be undergoing surgerical intervention (lami- fusion L3-S1) within the next few months, and feels like her outcome will be the best if she works on core strengthening and stability prior to surgery. Pt notes that on the morning of 09/22/20, she received a steroid injection, notes her back is feeling pretty good. I had not realized how much it had been affecting me, sapping my energy. Additionally, pt has begun using CBD tincture to help her sleep, and CBD/THC mints for pain, which really seem to help. Prior Treatments and Tests Lumbar MRI: IMPRESSION: 1. Multilevel degenerative changes. 2. Multilevel spinal stenosis most severe at L3-4, L4-5 secondary to anterolithesis and facet/ ligamentum flavum hypertrophy. 3. Mutlilevel foraminal narrowing most severe at L3-4, L4-5, L5-S1 secondary to facet arthropathy and anterolithesis. per Olya Contreras M.D. on 07/30/2020 Hip MRI: IMPRESSION: -Anterosuperior labral tear which could be chronic/ degenerative. -Age-indeterminate mild hamstring origin tendinopathy. -Low-grade strain at the insertion of the left piriformis and obturator internus muscles. -Minimal left subtrochanteric bursal fluid/edema. Per Danny Mccullough M.D. on Future Testing and Treatments Planned Pt reports a follow-up with Dr Landeros on 10/08/20 for decision on surgery. PT-OP-C Subjective Start: 09/24/20 16:57 Freq: Status: Active Protocol: Document 10/06/20 16:05 DCW (Rec: 10/06/20 16:47 DCW [id number]) OP-PT Subjective Patient Comments Patient Comments Pt notes her shoulder has been doing well since her last visit. PT-OP-F Manual Assessment Start: 09/24/20 16:57 Freq: Status: Active Protocol: Document 09/24/20 11:15 DCW (Rec: 09/27/20 10:16 DCW [id number]) Manual Assessments Soft Tissue Assessment Soft Tissue Mobility Assessment Moderate tone and Tenderness to palpation 2/4: Pain with wincing bilateral QL, bilateral lumbar paraspinals, bilateral piriformis Tenderness to palpation 3/4: Wincing and withdraw along bilateral psoas PT-OP-K Range of Motion Start: 09/24/20 16:57 Freq: Status: Active Protocol: Document 09/24/20 11:15 DCW (Rec: 09/27/20 10:16 DCW [id number]) Lumbar Spine Range of Motion Lumbar Spine Active Degrees Testing Position Standing Flexion 90 Extension 0 Lateral Flexion Left 50 Lateral Flexion Right 47 Comments Lateral flexion measured in cm from fingertips to floor PT-OP-L Special Tests Start: 09/24/20 16:57 Freq: Status: Active Protocol: Document 09/24/20 11:15 DCW (Rec: 09/27/20 10:16 DCW [id number]) Special Tests Lumbar Spine Special Tests A-P Shearing Test Results Negative Standing Flexion Test Results Negative Straight Leg Raise Test Results Negative Slump Test Results Negative Hip Special Tests Lateral SI Compression Test Results Negative Piriformis Test Results Negative RAMONA Test Results Bilateral ipsilateral anterior pain PT-OP-M Strength Start: 09/24/20 16:57 Freq: Status: Active Protocol: Document 09/24/20 11:15 DCW (Rec: 09/27/20 10:16 DCW [id number]) Trunk Strength Trunk Manual Muscle Testing Core Stabilization Pt able to properly PPT and contract TrA, perform SLR, back beging to arch, pt unable to hold. 4-/5 Hip Strength Hip Manual Muscle Testing Right Flexion (L2) 4 Good Extension (S1) 4- Good- Abduction 4- Good- Adduction 4+ Good+ External Rotation 4+ Good+ Internal Rotation 4+ Good+ Left Flexion (L2) 4- Good- Extension (S1) 4- Good- Abduction 4- Good- Adduction 4+ Good+ External Rotation 4+ Good+ Internal Rotation 4+ Good+ Knee Strength Knee Manual Muscle Testing Bilateral Flexion (S2) 5 Normal Extension (L3) 5 Normal Ankle/Foot Strength Ankle and Foot Manual Muscle Testing Bilateral Dorsiflexion (L4) 5 Normal Plantarflexion (S1) 5 Normal PT-OP-Q Treatments Start: 09/24/20 16:57 Freq: Status: Active Protocol: Document 10/06/20 16:05 DCW (Rec: 10/06/20 16:47 DCW [id number]) Gym Equipment Sport Cord 1 Exercise Details Fwd/Retro, side-stepping vs resistance Cord/Resistance Blue Therapeutic Exercises Supine Exercises air bike Supine Exercise Name PPT /c TrA contraction with Air Bike bridge hip abd Supine Exercise Name Bridging /c Alternating knee extension Prone Exercises 1 Prone Exercise Name Inclined plank Manual Therapy Treatment Soft Tissue Mobilization QL Body Location B QL Mobilization Type Sustained Pressure,Trigger Point Release Intensity/Depth Deep Body Position Prone Psoas Body Location B psoas and TFL Mobilization Type Cross-Friction,Sustained Pressure Intensity/Depth Deep Body Position Supine Manual Traction Lumbar Details Long [place] /c strap Body Position Supine PT-OP-T Assessment and Plan Start: 09/24/20 16:57 Freq: Status: Active Protocol: Document 10/06/20 16:05 DCW (Rec: 10/06/20 16:47 DCW [id number]) Physical Therapy Assessment Impairments Impairments Activity Tolerance,Functional Mobility,Pain,ROM,Soft Tissue Mobility,Strength Goals Three Impairment Lumbar hypomobility results in no extension ROM through lumbar spine Care Home Goal (LTG) Pt to demonstrate ability to extend lumbar spine 15? to show increased functional mobility LTG Duration 11/22/20 Two Impairment Core weakness results in decreased low back stability Care Home Goal (LTG) Pt to present with improved core strength to 4+/5 to improve low back and hip stability in order to improve post-surgical outcomes. LTG Duration 11/22/20 One Impairment Pt does not have an appropriate HEP Short Term Goal (STG) Pt to be independent and compliant with an appropriate HEP STG Duration 10/25/20 Assessment Summary Assessment Pt getting more optimistic for upcoming surgical intervention. Pt showing improved mobility in AM following recent injection. Physical Therapy Plan Frequency and Duration Frequency of Treatment 2x/Week Duration of Treatment two months Plan of Care Start Date 09/24/20 Plan of Care End Date 11/22/20 Therapeutic Interventions Therapeutic Interventions Home Exercise Program,Joint Mobilizations,Manual Therapy, Neuromuscular Re-education, Patient/Caregiver Education, Self-Care/Home Management,Soft Tissue Mobilization, Therapeutic Activities, Therapeutic Exercises Modalities Cold Pack/Ice Massage,Electric Stimulation,Hot Packs, Ultrasound Next Visit Focus/Plan Next Note Type Treatment Note Next Visit Plan Core strengthening, hip strengthening, STM, flexibility/stretching
--- NOTE | 2020-10-08 15:10 | PT.OTN ---
Current Diagnoses Scoliosis, unspecified (10/08/20) Spondylolisthesis, lumbar region (10/08/20) Spinal stenosis, lumbar region with neurogenic claudication (10/08/20) Physical Therapy Treatment Note PT-OP-A Visit Information Start: 09/24/20 16:57 Freq: Status: Active Protocol: Document 10/08/20 14:19 HH (Rec: 10/08/20 15:10 HH [id number]) Out-Patient Physical Therapy Visit Information Visit Information Visit Type Treatment Note Visit Start Time 14:20 Visit Stop Time 15:05 Total Visit Minutes 40 Visit Number 5 Number of ADAPTED PHYSICAL EDUCATION SPECIALIST Visits 0 PT-OP-B Current Condition Start: 09/24/20 16:57 Freq: Status: Active Protocol: Document 09/24/20 11:15 DCW (Rec: 09/27/20 10:09 DCW [id number]) Current Condition History of Current Condition Onset Date Multi-year history Current Complaints Low back pain, History of Current Condition Pt is a 59 year old female with a long history of low back and hip pain. Pt was very recently being seen at this clinic for low back and hip pain, with some improvement, but overall continuing pain and stiffness, especially upon rising in the morning. Pt has had recent MRIs of her lumbar spine and hip, which show a number of different injuries, including degenerative changes , spinal stenosis, foraminal narrowing, anterolithesis, and a chronic/degenerative labral tear. Following these MRI results, she has decided that she will likely be undergoing surgerical intervention (lami- fusion L3-S1) within the next few months, and feels like her outcome will be the best if she works on core strengthening and stability prior to surgery. Pt notes that on the morning of 09/22/20, she received a steroid injection, notes her back is feeling pretty good. I had not realized how much it had been affecting me, sapping my energy. Additionally, pt has begun using CBD tincture to help her sleep, and CBD/THC mints for pain, which really seem to help. Prior Treatments and Tests Lumbar MRI: IMPRESSION: 1. Multilevel degenerative changes. 2. Multilevel spinal stenosis most severe at L3-4, L4-5 secondary to anterolithesis and facet/ ligamentum flavum hypertrophy. 3. Mutlilevel foraminal narrowing most severe at L3-4, L4-5, L5-S1 secondary to facet arthropathy and anterolithesis. per Olya Contreras M.D. on 07/30/2020 Hip MRI: IMPRESSION: -Anterosuperior labral tear which could be chronic/ degenerative. -Age-indeterminate mild hamstring origin tendinopathy. -Low-grade strain at the insertion of the left piriformis and obturator internus muscles. -Minimal left subtrochanteric bursal fluid/edema. Per Danny Mccullough M.D. on Future Testing and Treatments Planned Pt reports a follow-up with Dr Landeros on 10/08/20 for decision on surgery. PT-OP-C Subjective Start: 09/24/20 16:57 Freq: Status: Active Protocol: Document 10/08/20 14:19 HH (Rec: 10/08/20 15:10 HH [id number]) OP-PT Subjective Patient Comments Patient Comments I saw Dr. Landeros this morning and he recommended me to do L2-S1 laminectomy and fusion but not L3-S1 because he said he will be more stable in that way. Its most likely going to be after December. PT-OP-F Manual Assessment Start: 09/24/20 16:57 Freq: Status: Active Protocol: Document 09/24/20 11:15 DCW (Rec: 09/27/20 10:16 DCW [id number]) Manual Assessments Soft Tissue Assessment Soft Tissue Mobility Assessment Moderate tone and Tenderness to palpation 2/4: Pain with wincing bilateral QL, bilateral lumbar paraspinals, bilateral piriformis Tenderness to palpation 3/4: Wincing and withdraw along bilateral psoas PT-OP-K Range of Motion Start: 09/24/20 16:57 Freq: Status: Active Protocol: Document 09/24/20 11:15 DCW (Rec: 09/27/20 10:16 DCW [id number]) Lumbar Spine Range of Motion Lumbar Spine Active Degrees Testing Position Standing Flexion 90 Extension 0 Lateral Flexion Left 50 Lateral Flexion Right 47 Comments Lateral flexion measured in cm from fingertips to floor PT-OP-L Special Tests Start: 09/24/20 16:57 Freq: Status: Active Protocol: Document 09/24/20 11:15 DCW (Rec: 09/27/20 10:16 DCW [id number]) Special Tests Lumbar Spine Special Tests A-P Shearing Test Results Negative Standing Flexion Test Results Negative Straight Leg Raise Test Results Negative Slump Test Results Negative Hip Special Tests Lateral SI Compression Test Results Negative Piriformis Test Results Negative RAMONA Test Results Bilateral ipsilateral anterior pain PT-OP-M Strength Start: 09/24/20 16:57 Freq: Status: Active Protocol: Document 09/24/20 11:15 DCW (Rec: 09/27/20 10:16 DCW [id number]) Trunk Strength Trunk Manual Muscle Testing Core Stabilization Pt able to properly PPT and contract TrA, perform SLR, back beging to arch, pt unable to hold. 4-/5 Hip Strength Hip Manual Muscle Testing Right Flexion (L2) 4 Good Extension (S1) 4- Good- Abduction 4- Good- Adduction 4+ Good+ External Rotation 4+ Good+ Internal Rotation 4+ Good+ Left Flexion (L2) 4- Good- Extension (S1) 4- Good- Abduction 4- Good- Adduction 4+ Good+ External Rotation 4+ Good+ Internal Rotation 4+ Good+ Knee Strength Knee Manual Muscle Testing Bilateral Flexion (S2) 5 Normal Extension (L3) 5 Normal Ankle/Foot Strength Ankle and Foot Manual Muscle Testing Bilateral Dorsiflexion (L4) 5 Normal Plantarflexion (S1) 5 Normal PT-OP-Q Treatments Start: 09/24/20 16:57 Freq: Status: Active Protocol: Document 10/08/20 14:19 HH (Rec: 10/08/20 15:10 HH [id number]) Cardio Equipment Bicycle (Upright) Duration (Minutes) 6 Resistance 8 Therapeutic Exercises Supine Exercises ab curl Side bilateral Equipment Used red therapy ball Reps/Minutes 10 x2 bridging Side bilateral Reps/Minutes 10 x2 air bike Supine Exercise Name PPT /c TrA contraction with Air Bike LS Rotation Ball Reps/Minutes 10 x2 bridge hip abd Supine Exercise Name Bridging /c Alternating knee extension Prone Exercises 1 Prone Exercise Name Inclined plank Standing Exercises bend over row Side bilateral Equipment Used 4 lbs DB Reps/Minutes 10 x2 Comments cues on neutral spine SLS Standing Exercise Name RDL to chair touch Side bilateral Reps/Minutes 5x 2 Manual Therapy Treatment Soft Tissue Mobilization QL Body Location B QL Mobilization Type Sustained Pressure,Trigger Point Release Intensity/Depth Deep Body Position Prone Psoas Body Location B psoas and TFL Mobilization Type Cross-Friction,Sustained Pressure Intensity/Depth Deep Body Position Supine Manual Traction Lumbar Details Long [place] /c strap Body Position Supine PT-OP-T Assessment and Plan Start: 09/24/20 16:57 Freq: Status: Active Protocol: Document 10/08/20 14:19 HH (Rec: 10/08/20 15:10 HH [id number]) Physical Therapy Assessment Goals Three Impairment Lumbar hypomobility results in no extension ROM through lumbar spine Contour Grinder Goal (LTG) Pt to demonstrate ability to extend lumbar spine 15? to show increased functional mobility LTG Duration 11/22/20 Two Impairment Core weakness results in decreased low back stability Contour Grinder Goal (LTG) Pt to present with improved core strength to 4+/5 to improve low back and hip stability in order to improve post-surgical outcomes. LTG Duration 11/22/20 One Impairment Pt does not have an appropriate HEP Short Term Goal (STG) Pt to be independent and compliant with an appropriate HEP STG Duration 10/25/20 Assessment Summary Assessment Pt consulted with surgeon Dr. Landeros and rec to perform L2 -S1 laminectomy and fusion but has to be after December d/t scheduling issue. Pt zachery session very well and added trunk stabilization ex in standing position Physical Therapy Plan Frequency and Duration Frequency of Treatment 2x/Week Duration of Treatment two months Plan of Care Start Date 09/24/20 Plan of Care End Date 11/22/20 Next Visit Focus/Plan Next Note Type Treatment Note Next Visit Plan Core strengthening, hip strengthening, STM, flexibility/stretching
--- NOTE | 2020-10-13 16:49 | PT.OTN ---
Current Diagnoses Scoliosis, unspecified (10/13/20) Spondylolisthesis, lumbar region (10/13/20) Spinal stenosis, lumbar region with neurogenic claudication (10/13/20) Physical Therapy Treatment Note PT-OP-A Visit Information Start: 09/24/20 16:57 Freq: Status: Active Protocol: Document 10/13/20 16:03 DCW (Rec: 10/13/20 16:49 DCW [id number]) Out-Patient Physical Therapy Visit Information Visit Information Visit Type Treatment Note Visit Start Time 16:03 Visit Stop Time 16:45 Total Visit Minutes 42 Visit Number 6 Number of SHOPPER INSIGHTS MANAGER Visits 0 Evaluation Information Evaluation Date 09/24/20 PT-OP-B Current Condition Start: 09/24/20 16:57 Freq: Status: Active Protocol: Document 09/24/20 11:15 DCW (Rec: 09/27/20 10:09 DCW [id number]) Current Condition History of Current Condition Onset Date Multi-year history Current Complaints Low back pain, History of Current Condition Pt is a 59 year old female with a long history of low back and hip pain. Pt was very recently being seen at this clinic for low back and hip pain, with some improvement, but overall continuing pain and stiffness, especially upon rising in the morning. Pt has had recent MRIs of her lumbar spine and hip, which show a number of different injuries, including degenerative changes , spinal stenosis, foraminal narrowing, anterolithesis, and a chronic/degenerative labral tear. Following these MRI results, she has decided that she will likely be undergoing surgerical intervention (lami- fusion L3-S1) within the next few months, and feels like her outcome will be the best if she works on core strengthening and stability prior to surgery. Pt notes that on the morning of 09/22/20, she received a steroid injection, notes her back is feeling pretty good. I had not realized how much it had been affecting me, sapping my energy. Additionally, pt has begun using CBD tincture to help her sleep, and CBD/THC mints for pain, which really seem to help. Prior Treatments and Tests Lumbar MRI: IMPRESSION: 1. Multilevel degenerative changes. 2. Multilevel spinal stenosis most severe at L3-4, L4-5 secondary to anterolithesis and facet/ ligamentum flavum hypertrophy. 3. Mutlilevel foraminal narrowing most severe at L3-4, L4-5, L5-S1 secondary to facet arthropathy and anterolithesis. per Olya Contreras M.D. on 07/30/2020 Hip MRI: IMPRESSION: -Anterosuperior labral tear which could be chronic/ degenerative. -Age-indeterminate mild hamstring origin tendinopathy. -Low-grade strain at the insertion of the left piriformis and obturator internus muscles. -Minimal left subtrochanteric bursal fluid/edema. Per Danny Mccullough M.D. on Future Testing and Treatments Planned Pt reports a follow-up with Dr Landeros on 10/08/20 for decision on surgery. PT-OP-C Subjective Start: 09/24/20 16:57 Freq: Status: Active Protocol: Document 10/13/20 16:03 DCW (Rec: 10/13/20 16:49 DCW [id number]) OP-PT Subjective Patient Comments Patient Comments Pt reports she just came from an hour walk on [address], and she feels pretty good. Notes that she has another spinal injection scheduled for next Sunday. PT-OP-F Manual Assessment Start: 09/24/20 16:57 Freq: Status: Active Protocol: Document 09/24/20 11:15 DCW (Rec: 09/27/20 10:16 DCW [id number]) Manual Assessments Soft Tissue Assessment Soft Tissue Mobility Assessment Moderate tone and Tenderness to palpation 2/4: Pain with wincing bilateral QL, bilateral lumbar paraspinals, bilateral piriformis Tenderness to palpation 3/4: Wincing and withdraw along bilateral psoas PT-OP-K Range of Motion Start: 09/24/20 16:57 Freq: Status: Active Protocol: Document 09/24/20 11:15 DCW (Rec: 09/27/20 10:16 DCW [id number]) Lumbar Spine Range of Motion Lumbar Spine Active Degrees Testing Position Standing Flexion 90 Extension 0 Lateral Flexion Left 50 Lateral Flexion Right 47 Comments Lateral flexion measured in cm from fingertips to floor PT-OP-L Special Tests Start: 09/24/20 16:57 Freq: Status: Active Protocol: Document 09/24/20 11:15 DCW (Rec: 09/27/20 10:16 DCW [id number]) Special Tests Lumbar Spine Special Tests A-P Shearing Test Results Negative Standing Flexion Test Results Negative Straight Leg Raise Test Results Negative Slump Test Results Negative Hip Special Tests Lateral SI Compression Test Results Negative Piriformis Test Results Negative RAMONA Test Results Bilateral ipsilateral anterior pain PT-OP-M Strength Start: 09/24/20 16:57 Freq: Status: Active Protocol: Document 09/24/20 11:15 DCW (Rec: 09/27/20 10:16 DCW [id number]) Trunk Strength Trunk Manual Muscle Testing Core Stabilization Pt able to properly PPT and contract TrA, perform SLR, back beging to arch, pt unable to hold. 4-/5 Hip Strength Hip Manual Muscle Testing Right Flexion (L2) 4 Good Extension (S1) 4- Good- Abduction 4- Good- Adduction 4+ Good+ External Rotation 4+ Good+ Internal Rotation 4+ Good+ Left Flexion (L2) 4- Good- Extension (S1) 4- Good- Abduction 4- Good- Adduction 4+ Good+ External Rotation 4+ Good+ Internal Rotation 4+ Good+ Knee Strength Knee Manual Muscle Testing Bilateral Flexion (S2) 5 Normal Extension (L3) 5 Normal Ankle/Foot Strength Ankle and Foot Manual Muscle Testing Bilateral Dorsiflexion (L4) 5 Normal Plantarflexion (S1) 5 Normal PT-OP-Q Treatments Start: 09/24/20 16:57 Freq: Status: Active Protocol: Document 10/13/20 16:03 DCW (Rec: 10/13/20 16:49 DCW [id number]) Gym Equipment Shuttle Balance Red Details Staggered Stance Therapeutic Exercises Supine Exercises bridge hip abd Supine Exercise Name Bridging /c Alternating knee extension Prone Exercises 1 Prone Exercise Name Inclined plank Manual Therapy Treatment Soft Tissue Mobilization QL Body Location B QL Mobilization Type Sustained Pressure,Trigger Point Release Intensity/Depth Deep Body Position Prone Psoas Body Location B psoas and TFL Mobilization Type Cross-Friction,Sustained Pressure Intensity/Depth Deep Body Position Supine Manual Traction Lumbar Details Long [place] /c strap Body Position Supine PT-OP-T Assessment and Plan Start: 09/24/20 16:57 Freq: Status: Active Protocol: Document 10/13/20 16:03 DCW (Rec: 10/13/20 16:49 DCW [id number]) Physical Therapy Assessment Impairments Impairments Activity Tolerance,Functional Mobility,Pain,ROM,Soft Tissue Mobility,Strength Goals Three Impairment Lumbar hypomobility results in no extension ROM through lumbar spine Halfway Goal (LTG) Pt to demonstrate ability to extend lumbar spine 15? to show increased functional mobility LTG Duration 11/22/20 Two Impairment Core weakness results in decreased low back stability Brand Ambassador Goal (LTG) Pt to present with improved core strength to 4+/5 to improve low back and hip stability in order to improve post-surgical outcomes. LTG Duration 11/22/20 One Impairment Pt does not have an appropriate HEP Short Term Goal (STG) Pt to be independent and compliant with an appropriate HEP STG Duration 10/25/20 Assessment Summary Assessment Pt tolerating treatment well, no current change in symptoms. Working hard on core strengthening. Physical Therapy Plan Frequency and Duration Frequency of Treatment 2x/Week Duration of Treatment two months Plan of Care Start Date 09/24/20 Plan of Care End Date 11/22/20 Therapeutic Interventions Therapeutic Interventions Home Exercise Program,Joint Mobilizations,Manual Therapy, Neuromuscular Re-education, Patient/Caregiver Education, Self-Care/Home Management,Soft Tissue Mobilization, Therapeutic Activities, Therapeutic Exercises Modalities Cold Pack/Ice Massage,Electric Stimulation,Hot Packs, Ultrasound Next Visit Focus/Plan Next Note Type Treatment Note Next Visit Plan Core strengthening, hip strengthening, STM, flexibility/stretching
--- NOTE | 2020-10-15 15:16 | PT.OTN ---
Current Diagnoses Scoliosis, unspecified (10/15/20) Spondylolisthesis, lumbar region (10/15/20) Spinal stenosis, lumbar region with neurogenic claudication (10/15/20) Physical Therapy Treatment Note PT-OP-A Visit Information Start: 09/24/20 16:57 Freq: Status: Active Protocol: Document 10/15/20 14:35 DCW (Rec: 10/15/20 15:16 DCW [id number]) Out-Patient Physical Therapy Visit Information Visit Information Visit Type Treatment Note Visit Start Time 14:35 Visit Stop Time 15:15 Total Visit Minutes 40 Visit Number 7 Number of PERMACULTURE DESIGNER Visits 0 Evaluation Information Evaluation Date 09/24/20 PT-OP-B Current Condition Start: 09/24/20 16:57 Freq: Status: Active Protocol: Document 09/24/20 11:15 DCW (Rec: 09/27/20 10:09 DCW [id number]) Current Condition History of Current Condition Onset Date Multi-year history Current Complaints Low back pain, History of Current Condition Pt is a 59 year old female with a long history of low back and hip pain. Pt was very recently being seen at this clinic for low back and hip pain, with some improvement, but overall continuing pain and stiffness, especially upon rising in the morning. Pt has had recent MRIs of her lumbar spine and hip, which show a number of different injuries, including degenerative changes , spinal stenosis, foraminal narrowing, anterolithesis, and a chronic/degenerative labral tear. Following these MRI results, she has decided that she will likely be undergoing surgerical intervention (lami- fusion L3-S1) within the next few months, and feels like her outcome will be the best if she works on core strengthening and stability prior to surgery. Pt notes that on the morning of 09/22/20, she received a steroid injection, notes her back is feeling pretty good. I had not realized how much it had been affecting me, sapping my energy. Additionally, pt has begun using CBD tincture to help her sleep, and CBD/THC mints for pain, which really seem to help. Prior Treatments and Tests Lumbar MRI: IMPRESSION: 1. Multilevel degenerative changes. 2. Multilevel spinal stenosis most severe at L3-4, L4-5 secondary to anterolithesis and facet/ ligamentum flavum hypertrophy. 3. Mutlilevel foraminal narrowing most severe at L3-4, L4-5, L5-S1 secondary to facet arthropathy and anterolithesis. per Olya Contreras M.D. on 07/30/2020 Hip MRI: IMPRESSION: -Anterosuperior labral tear which could be chronic/ degenerative. -Age-indeterminate mild hamstring origin tendinopathy. -Low-grade strain at the insertion of the left piriformis and obturator internus muscles. -Minimal left subtrochanteric bursal fluid/edema. Per Danny Mccullough M.D. on Future Testing and Treatments Planned Pt reports a follow-up with Dr Landeros on 10/08/20 for decision on surgery. PT-OP-C Subjective Start: 09/24/20 16:57 Freq: Status: Active Protocol: Document 10/15/20 14:35 DCW (Rec: 10/15/20 15:16 DCW [id number]) OP-PT Subjective Patient Comments Patient Comments Pt reports earlier today, she was much more sore and not breathing as well, but is feeling better now. PT-OP-F Manual Assessment Start: 09/24/20 16:57 Freq: Status: Active Protocol: Document 09/24/20 11:15 DCW (Rec: 09/27/20 10:16 DCW [id number]) Manual Assessments Soft Tissue Assessment Soft Tissue Mobility Assessment Moderate tone and Tenderness to palpation 2/4: Pain with wincing bilateral QL, bilateral lumbar paraspinals, bilateral piriformis Tenderness to palpation 3/4: Wincing and withdraw along bilateral psoas PT-OP-K Range of Motion Start: 09/24/20 16:57 Freq: Status: Active Protocol: Document 09/24/20 11:15 DCW (Rec: 09/27/20 10:16 DCW [id number]) Lumbar Spine Range of Motion Lumbar Spine Active Degrees Testing Position Standing Flexion 90 Extension 0 Lateral Flexion Left 50 Lateral Flexion Right 47 Comments Lateral flexion measured in cm from fingertips to floor PT-OP-L Special Tests Start: 09/24/20 16:57 Freq: Status: Active Protocol: Document 09/24/20 11:15 DCW (Rec: 09/27/20 10:16 DCW [id number]) Special Tests Lumbar Spine Special Tests A-P Shearing Test Results Negative Standing Flexion Test Results Negative Straight Leg Raise Test Results Negative Slump Test Results Negative Hip Special Tests Lateral SI Compression Test Results Negative Piriformis Test Results Negative RAMONA Test Results Bilateral ipsilateral anterior pain PT-OP-M Strength Start: 09/24/20 16:57 Freq: Status: Active Protocol: Document 09/24/20 11:15 DCW (Rec: 09/27/20 10:16 DCW [id number]) Trunk Strength Trunk Manual Muscle Testing Core Stabilization Pt able to properly PPT and contract TrA, perform SLR, back beging to arch, pt unable to hold. 4-/5 Hip Strength Hip Manual Muscle Testing Right Flexion (L2) 4 Good Extension (S1) 4- Good- Abduction 4- Good- Adduction 4+ Good+ External Rotation 4+ Good+ Internal Rotation 4+ Good+ Left Flexion (L2) 4- Good- Extension (S1) 4- Good- Abduction 4- Good- Adduction 4+ Good+ External Rotation 4+ Good+ Internal Rotation 4+ Good+ Knee Strength Knee Manual Muscle Testing Bilateral Flexion (S2) 5 Normal Extension (L3) 5 Normal Ankle/Foot Strength Ankle and Foot Manual Muscle Testing Bilateral Dorsiflexion (L4) 5 Normal Plantarflexion (S1) 5 Normal PT-OP-Q Treatments Start: 09/24/20 16:57 Freq: Status: Active Protocol: Document 10/15/20 14:35 DCW (Rec: 10/15/20 15:16 DCW [id number]) Therapeutic Exercises Supine Exercises piriformis Side bilateral Reps/Minutes 30 secs hold Manual Therapy Treatment Soft Tissue Mobilization Piriformis Body Location B Piriformis Mobilization Type Sustained Pressure Intensity/Depth Deep Body Position Prone QL Body Location B QL Mobilization Type Sustained Pressure,Trigger Point Release Intensity/Depth Deep Body Position Prone Psoas Body Location B psoas and TFL Mobilization Type Cross-Friction,Sustained Pressure Intensity/Depth Deep Body Position Supine Manual Traction Lumbar Details Long [place] /c strap Body Position Supine PT-OP-T Assessment and Plan Start: 09/24/20 16:57 Freq: Status: Active Protocol: Document 10/15/20 14:35 DCW (Rec: 10/15/20 15:16 DCW [id number]) Physical Therapy Assessment Impairments Impairments Activity Tolerance,Functional Mobility,Pain,ROM,Soft Tissue Mobility,Strength Goals Three Impairment Lumbar hypomobility results in no extension ROM through lumbar spine Sales Lead Generator Goal (LTG) Pt to demonstrate ability to extend lumbar spine 15? to show increased functional mobility LTG Duration 11/22/20 Two Impairment Core weakness results in decreased low back stability Usp Goal (LTG) Pt to present with improved core strength to 4+/5 to improve low back and hip stability in order to improve post-surgical outcomes. LTG Duration 11/22/20 One Impairment Pt does not have an appropriate HEP Short Term Goal (STG) Pt to be independent and compliant with an appropriate HEP STG Duration 10/25/20 Assessment Summary Assessment Pt felt much better following STM after complaining of increased soreness/stiffness at start of today's appointment. Physical Therapy Plan Frequency and Duration Frequency of Treatment 2x/Week Duration of Treatment two months Plan of Care Start Date 09/24/20 Plan of Care End Date 11/22/20 Therapeutic Interventions Therapeutic Interventions Home Exercise Program,Joint Mobilizations,Manual Therapy, Neuromuscular Re-education, Patient/Caregiver Education, Self-Care/Home Management,Soft Tissue Mobilization, Therapeutic Activities, Therapeutic Exercises Modalities Cold Pack/Ice Massage,Electric Stimulation,Hot Packs, Ultrasound Next Visit Focus/Plan Next Note Type Treatment Note Next Visit Plan Core strengthening, hip strengthening, STM, flexibility/stretching
--- NOTE | 2020-10-20 17:33 | PT.OTN ---
Current Diagnoses Scoliosis, unspecified (10/15/20) Spondylolisthesis, lumbar region (10/15/20) Spinal stenosis, lumbar region with neurogenic claudication (10/15/20) Physical Therapy Treatment Note PT-OP-A Visit Information Start: 09/24/20 16:57 Freq: Status: Active Protocol: Document 10/20/20 16:50 DCW (Rec: 10/20/20 17:33 DCW [id number]) Out-Patient Physical Therapy Visit Information Visit Information Visit Type Treatment Note Visit Start Time 16:50 Visit Stop Time 17:30 Total Visit Minutes 40 Visit Number 8 Number of JAVA DEVELOPER CONSULTANT Visits 0 Evaluation Information Evaluation Date 09/24/20 PT-OP-B Current Condition Start: 09/24/20 16:57 Freq: Status: Active Protocol: Document 09/24/20 11:15 DCW (Rec: 09/27/20 10:09 DCW [id number]) Current Condition History of Current Condition Onset Date Multi-year history Current Complaints Low back pain, History of Current Condition Pt is a 59 year old female with a long history of low back and hip pain. Pt was very recently being seen at this clinic for low back and hip pain, with some improvement, but overall continuing pain and stiffness, especially upon rising in the morning. Pt has had recent MRIs of her lumbar spine and hip, which show a number of different injuries, including degenerative changes , spinal stenosis, foraminal narrowing, anterolithesis, and a chronic/degenerative labral tear. Following these MRI results, she has decided that she will likely be undergoing surgerical intervention (lami- fusion L3-S1) within the next few months, and feels like her outcome will be the best if she works on core strengthening and stability prior to surgery. Pt notes that on the morning of 09/22/20, she received a steroid injection, notes her back is feeling pretty good. I had not realized how much it had been affecting me, sapping my energy. Additionally, pt has begun using CBD tincture to help her sleep, and CBD/THC mints for pain, which really seem to help. Prior Treatments and Tests Lumbar MRI: IMPRESSION: 1. Multilevel degenerative changes. 2. Multilevel spinal stenosis most severe at L3-4, L4-5 secondary to anterolithesis and facet/ ligamentum flavum hypertrophy. 3. Mutlilevel foraminal narrowing most severe at L3-4, L4-5, L5-S1 secondary to facet arthropathy and anterolithesis. per Olya Contreras M.D. on 07/30/2020 Hip MRI: IMPRESSION: -Anterosuperior labral tear which could be chronic/ degenerative. -Age-indeterminate mild hamstring origin tendinopathy. -Low-grade strain at the insertion of the left piriformis and obturator internus muscles. -Minimal left subtrochanteric bursal fluid/edema. Per Danny Mccullough M.D. on Future Testing and Treatments Planned Pt reports a follow-up with Dr Landeros on 10/08/20 for decision on surgery. PT-OP-C Subjective Start: 09/24/20 16:57 Freq: Status: Active Protocol: Document 10/20/20 16:50 DCW (Rec: 10/20/20 17:33 DCW [id number]) OP-PT Subjective Patient Comments Patient Comments Pt is feeling great! following steroid inkection yesterday. PT-OP-F Manual Assessment Start: 09/24/20 16:57 Freq: Status: Active Protocol: Document 09/24/20 11:15 DCW (Rec: 09/27/20 10:16 DCW [id number]) Manual Assessments Soft Tissue Assessment Soft Tissue Mobility Assessment Moderate tone and Tenderness to palpation 2/4: Pain with wincing bilateral QL, bilateral lumbar paraspinals, bilateral piriformis Tenderness to palpation 3/4: Wincing and withdraw along bilateral psoas PT-OP-K Range of Motion Start: 09/24/20 16:57 Freq: Status: Active Protocol: Document 09/24/20 11:15 DCW (Rec: 09/27/20 10:16 DCW [id number]) Lumbar Spine Range of Motion Lumbar Spine Active Degrees Testing Position Standing Flexion 90 Extension 0 Lateral Flexion Left 50 Lateral Flexion Right 47 Comments Lateral flexion measured in cm from fingertips to floor PT-OP-L Special Tests Start: 09/24/20 16:57 Freq: Status: Active Protocol: Document 09/24/20 11:15 DCW (Rec: 09/27/20 10:16 DCW [id number]) Special Tests Lumbar Spine Special Tests A-P Shearing Test Results Negative Standing Flexion Test Results Negative Straight Leg Raise Test Results Negative Slump Test Results Negative Hip Special Tests Lateral SI Compression Test Results Negative Piriformis Test Results Negative RAMONA Test Results Bilateral ipsilateral anterior pain PT-OP-M Strength Start: 09/24/20 16:57 Freq: Status: Active Protocol: Document 09/24/20 11:15 DCW (Rec: 09/27/20 10:16 DCW [id number]) Trunk Strength Trunk Manual Muscle Testing Core Stabilization Pt able to properly PPT and contract TrA, perform SLR, back beging to arch, pt unable to hold. 4-/5 Hip Strength Hip Manual Muscle Testing Right Flexion (L2) 4 Good Extension (S1) 4- Good- Abduction 4- Good- Adduction 4+ Good+ External Rotation 4+ Good+ Internal Rotation 4+ Good+ Left Flexion (L2) 4- Good- Extension (S1) 4- Good- Abduction 4- Good- Adduction 4+ Good+ External Rotation 4+ Good+ Internal Rotation 4+ Good+ Knee Strength Knee Manual Muscle Testing Bilateral Flexion (S2) 5 Normal Extension (L3) 5 Normal Ankle/Foot Strength Ankle and Foot Manual Muscle Testing Bilateral Dorsiflexion (L4) 5 Normal Plantarflexion (S1) 5 Normal PT-OP-Q Treatments Start: 09/24/20 16:57 Freq: Status: Active Protocol: Document 10/20/20 16:50 DCW (Rec: 10/20/20 17:33 DCW [id number]) Cardio Equipment Bicycle (Upright) Duration (Minutes) 6 Resistance 8 Seat Position 4 Gym Equipment Shuttle Balance Red Details Staggered Stance Therapeutic Exercises Supine Exercises piriformis Side bilateral Reps/Minutes 30 secs hold Manual Therapy Treatment Soft Tissue Mobilization Piriformis Body Location B Piriformis Mobilization Type Sustained Pressure Intensity/Depth Deep Body Position Prone QL Body Location B QL Mobilization Type Sustained Pressure,Trigger Point Release Intensity/Depth Deep Body Position Prone Psoas Body Location B psoas and TFL Mobilization Type Cross-Friction,Sustained Pressure Intensity/Depth Deep Body Position Supine PT-OP-T Assessment and Plan Start: 09/24/20 16:57 Freq: Status: Active Protocol: Document 10/20/20 16:50 DCW (Rec: 10/20/20 17:33 DCW [id number]) Physical Therapy Assessment Impairments Impairments Activity Tolerance,Functional Mobility,Pain,ROM,Soft Tissue Mobility,Strength Goals Three Impairment Lumbar hypomobility results in no extension ROM through lumbar spine Tutoring Assistant Goal (LTG) Pt to demonstrate ability to extend lumbar spine 15? to show increased functional mobility LTG Duration 11/22/20 Two Impairment Core weakness results in decreased low back stability Fdc Goal (LTG) Pt to present with improved core strength to 4+/5 to improve low back and hip stability in order to improve post-surgical outcomes. LTG Duration 11/22/20 One Impairment Pt does not have an appropriate HEP Short Term Goal (STG) Pt to be independent and compliant with an appropriate HEP STG Duration 10/25/20 Assessment Summary Assessment Pt demonstrating significant improvement in tenderness and mobility following steroid injection yesterday. Physical Therapy Plan Frequency and Duration Frequency of Treatment 2x/Week Duration of Treatment two months Plan of Care Start Date 09/24/20 Plan of Care End Date 11/22/20 Therapeutic Interventions Therapeutic Interventions Home Exercise Program,Joint Mobilizations,Manual Therapy, Neuromuscular Re-education, Patient/Caregiver Education, Self-Care/Home Management,Soft Tissue Mobilization, Therapeutic Activities, Therapeutic Exercises Modalities Cold Pack/Ice Massage,Electric Stimulation,Hot Packs, Ultrasound Next Visit Focus/Plan Next Note Type Treatment Note Next Visit Plan Core strengthening, hip strengthening, STM, flexibility/stretching
--- NOTE | 2020-10-29 16:07 | PT.OTN ---
Current Diagnoses Scoliosis, unspecified (10/29/20) Spondylolisthesis, lumbar region (10/29/20) Spinal stenosis, lumbar region with neurogenic claudication (10/29/20) Physical Therapy Treatment Note PT-OP-A Visit Information Start: 09/24/20 16:57 Freq: Status: Active Protocol: Document 10/29/20 15:20 DCW (Rec: 10/29/20 16:07 DCW [id number]) Out-Patient Physical Therapy Visit Information Visit Information Visit Type Treatment Note Visit Start Time 15:20 Visit Stop Time 16:00 Total Visit Minutes 40 Visit Number 10 Number of HOSPITAL SUPERINTENDENT Visits 0 Evaluation Information Evaluation Date 09/24/20 PT-OP-B Current Condition Start: 09/24/20 16:57 Freq: Status: Active Protocol: Document 09/24/20 11:15 DCW (Rec: 09/27/20 10:09 DCW [id number]) Current Condition History of Current Condition Onset Date Multi-year history Current Complaints Low back pain, History of Current Condition Pt is a 59 year old female with a long history of low back and hip pain. Pt was very recently being seen at this clinic for low back and hip pain, with some improvement, but overall continuing pain and stiffness, especially upon rising in the morning. Pt has had recent MRIs of her lumbar spine and hip, which show a number of different injuries, including degenerative changes , spinal stenosis, foraminal narrowing, anterolithesis, and a chronic/degenerative labral tear. Following these MRI results, she has decided that she will likely be undergoing surgerical intervention (lami- fusion L3-S1) within the next few months, and feels like her outcome will be the best if she works on core strengthening and stability prior to surgery. Pt notes that on the morning of 09/22/20, she received a steroid injection, notes her back is feeling pretty good. I had not realized how much it had been affecting me, sapping my energy. Additionally, pt has begun using CBD tincture to help her sleep, and CBD/THC mints for pain, which really seem to help. Prior Treatments and Tests Lumbar MRI: IMPRESSION: 1. Multilevel degenerative changes. 2. Multilevel spinal stenosis most severe at L3-4, L4-5 secondary to anterolithesis and facet/ ligamentum flavum hypertrophy. 3. Mutlilevel foraminal narrowing most severe at L3-4, L4-5, L5-S1 secondary to facet arthropathy and anterolithesis. per Olya Contreras M.D. on 07/30/2020 Hip MRI: IMPRESSION: -Anterosuperior labral tear which could be chronic/ degenerative. -Age-indeterminate mild hamstring origin tendinopathy. -Low-grade strain at the insertion of the left piriformis and obturator internus muscles. -Minimal left subtrochanteric bursal fluid/edema. Per Danny Mccullough M.D. on Future Testing and Treatments Planned Pt reports a follow-up with Dr Landeros on 10/08/20 for decision on surgery. PT-OP-C Subjective Start: 09/24/20 16:57 Freq: Status: Active Protocol: Document 10/29/20 15:20 DCW (Rec: 10/29/20 16:07 DCW [id number]) OP-PT Subjective Patient Comments Patient Comments Pt reports she has been trying to take more walks daily. PT-OP-F Manual Assessment Start: 09/24/20 16:57 Freq: Status: Active Protocol: Document 09/24/20 11:15 DCW (Rec: 09/27/20 10:16 DCW [id number]) Manual Assessments Soft Tissue Assessment Soft Tissue Mobility Assessment Moderate tone and Tenderness to palpation 2/4: Pain with wincing bilateral QL, bilateral lumbar paraspinals, bilateral piriformis Tenderness to palpation 3/4: Wincing and withdraw along bilateral psoas PT-OP-K Range of Motion Start: 09/24/20 16:57 Freq: Status: Active Protocol: Document 09/24/20 11:15 DCW (Rec: 09/27/20 10:16 DCW [id number]) Lumbar Spine Range of Motion Lumbar Spine Active Degrees Testing Position Standing Flexion 90 Extension 0 Lateral Flexion Left 50 Lateral Flexion Right 47 Comments Lateral flexion measured in cm from fingertips to floor PT-OP-L Special Tests Start: 09/24/20 16:57 Freq: Status: Active Protocol: Document 09/24/20 11:15 DCW (Rec: 09/27/20 10:16 DCW [id number]) Special Tests Lumbar Spine Special Tests A-P Shearing Test Results Negative Standing Flexion Test Results Negative Straight Leg Raise Test Results Negative Slump Test Results Negative Hip Special Tests Lateral SI Compression Test Results Negative Piriformis Test Results Negative RAMONA Test Results Bilateral ipsilateral anterior pain PT-OP-M Strength Start: 09/24/20 16:57 Freq: Status: Active Protocol: Document 09/24/20 11:15 DCW (Rec: 09/27/20 10:16 DCW [id number]) Trunk Strength Trunk Manual Muscle Testing Core Stabilization Pt able to properly PPT and contract TrA, perform SLR, back beging to arch, pt unable to hold. 4-/5 Hip Strength Hip Manual Muscle Testing Right Flexion (L2) 4 Good Extension (S1) 4- Good- Abduction 4- Good- Adduction 4+ Good+ External Rotation 4+ Good+ Internal Rotation 4+ Good+ Left Flexion (L2) 4- Good- Extension (S1) 4- Good- Abduction 4- Good- Adduction 4+ Good+ External Rotation 4+ Good+ Internal Rotation 4+ Good+ Knee Strength Knee Manual Muscle Testing Bilateral Flexion (S2) 5 Normal Extension (L3) 5 Normal Ankle/Foot Strength Ankle and Foot Manual Muscle Testing Bilateral Dorsiflexion (L4) 5 Normal Plantarflexion (S1) 5 Normal PT-OP-Q Treatments Start: 09/24/20 16:57 Freq: Status: Active Protocol: Document 10/29/20 15:20 DCW (Rec: 10/29/20 16:07 DCW [id number]) Cardio Equipment Bicycle (Upright) Duration (Minutes) 6 Resistance 8 Seat Position 4 Gym Equipment Therapeutic Ball Low Trunk Rotations Exercise Details LTR - hip/knee 90/90 on ball Ball Size/Color Red - 55 cm Body Position Hooklying Sport Cord 2 Exercise Details Step-up /c opposite hip flexion Cord/Resistance Red Comments 6 step Manual Therapy Treatment Soft Tissue Mobilization Piriformis Body Location B Piriformis Mobilization Type Sustained Pressure Intensity/Depth Deep Body Position Prone QL Body Location B QL Mobilization Type Sustained Pressure,Trigger Point Release Intensity/Depth Deep Body Position Prone Psoas Body Location B psoas and TFL Mobilization Type Cross-Friction,Sustained Pressure Intensity/Depth Deep Body Position Supine PT-OP-T Assessment and Plan Start: 09/24/20 16:57 Freq: Status: Active Protocol: Document 10/29/20 15:20 DCW (Rec: 10/29/20 16:07 DCW [id number]) Physical Therapy Assessment Impairments Impairments Activity Tolerance,Functional Mobility,Pain,ROM,Soft Tissue Mobility,Strength Goals Three Impairment Lumbar hypomobility results in no extension ROM through lumbar spine Bonding Supervisor Goal (LTG) Pt to demonstrate ability to extend lumbar spine 15? to show increased functional mobility LTG Duration 11/22/20 Two Impairment Core weakness results in decreased low back stability Bonding Supervisor Goal (LTG) Pt to present with improved core strength to 4+/5 to improve low back and hip stability in order to improve post-surgical outcomes. LTG Duration 11/22/20 One Impairment Pt does not have an appropriate HEP Short Term Goal (STG) Pt to be independent and compliant with an appropriate HEP STG Duration 10/25/20 Assessment Summary Assessment Pt continues to show improvement in all areas since injection, improved mobility of lumbar spine and increased core strength. Physical Therapy Plan Frequency and Duration Frequency of Treatment 2x/Week Duration of Treatment two months Plan of Care Start Date 09/24/20 Plan of Care End Date 11/22/20 Therapeutic Interventions Therapeutic Interventions Home Exercise Program,Joint Mobilizations,Manual Therapy, Neuromuscular Re-education, Patient/Caregiver Education, Self-Care/Home Management,Soft Tissue Mobilization, Therapeutic Activities, Therapeutic Exercises Modalities Cold Pack/Ice Massage,Electric Stimulation,Hot Packs, Ultrasound Next Visit Focus/Plan Next Note Type Treatment Note Next Visit Plan Core strengthening, hip strengthening, STM, flexibility/stretching
--- NOTE | 2020-11-12 10:33 | PT.OTN ---
Current Diagnoses Scoliosis, unspecified (11/12/20) Spondylolisthesis, lumbar region (11/12/20) Spinal stenosis, lumbar region with neurogenic claudication (11/12/20) Physical Therapy Treatment Note PT-OP-A Visit Information Start: 09/24/20 16:57 Freq: Status: Active Protocol: Document 11/12/20 09:51 DCW (Rec: 11/12/20 10:32 DCW [id number]) Out-Patient Physical Therapy Visit Information Visit Information Visit Type Treatment Note Visit Start Time 09:51 Visit Stop Time 10:30 Total Visit Minutes 39 Visit Number 11 Number of SOFTWARE CONSULTANT Visits 0 Evaluation Information Evaluation Date 09/24/20 PT-OP-B Current Condition Start: 09/24/20 16:57 Freq: Status: Active Protocol: Document 09/24/20 11:15 DCW (Rec: 09/27/20 10:09 DCW [id number]) Current Condition History of Current Condition Onset Date Multi-year history Current Complaints Low back pain, History of Current Condition Pt is a 59 year old female with a long history of low back and hip pain. Pt was very recently being seen at this clinic for low back and hip pain, with some improvement, but overall continuing pain and stiffness, especially upon rising in the morning. Pt has had recent MRIs of her lumbar spine and hip, which show a number of different injuries, including degenerative changes , spinal stenosis, foraminal narrowing, anterolithesis, and a chronic/degenerative labral tear. Following these MRI results, she has decided that she will likely be undergoing surgerical intervention (lami- fusion L3-S1) within the next few months, and feels like her outcome will be the best if she works on core strengthening and stability prior to surgery. Pt notes that on the morning of 09/22/20, she received a steroid injection, notes her back is feeling pretty good. I had not realized how much it had been affecting me, sapping my energy. Additionally, pt has begun using CBD tincture to help her sleep, and CBD/THC mints for pain, which really seem to help. Prior Treatments and Tests Lumbar MRI: IMPRESSION: 1. Multilevel degenerative changes. 2. Multilevel spinal stenosis most severe at L3-4, L4-5 secondary to anterolithesis and facet/ ligamentum flavum hypertrophy. 3. Mutlilevel foraminal narrowing most severe at L3-4, L4-5, L5-S1 secondary to facet arthropathy and anterolithesis. per Olya Contreras M.D. on 07/30/2020 Hip MRI: IMPRESSION: -Anterosuperior labral tear which could be chronic/ degenerative. -Age-indeterminate mild hamstring origin tendinopathy. -Low-grade strain at the insertion of the left piriformis and obturator internus muscles. -Minimal left subtrochanteric bursal fluid/edema. Per Danny Mccullough M.D. on Future Testing and Treatments Planned Pt reports a follow-up with Dr Landeros on 10/08/20 for decision on surgery. PT-OP-C Subjective Start: 09/24/20 16:57 Freq: Status: Active Protocol: Document 11/12/20 09:51 DCW (Rec: 11/12/20 10:32 DCW [id number]) OP-PT Subjective Patient Comments Patient Comments Pt reports her drive home Sunday from work was the most unpleasant it's been in a while. Admits it has not been a good week for her pain . PT-OP-F Manual Assessment Start: 09/24/20 16:57 Freq: Status: Active Protocol: Document 09/24/20 11:15 DCW (Rec: 09/27/20 10:16 DCW [id number]) Manual Assessments Soft Tissue Assessment Soft Tissue Mobility Assessment Moderate tone and Tenderness to palpation 2/4: Pain with wincing bilateral QL, bilateral lumbar paraspinals, bilateral piriformis Tenderness to palpation 3/4: Wincing and withdraw along bilateral psoas PT-OP-K Range of Motion Start: 09/24/20 16:57 Freq: Status: Active Protocol: Document 09/24/20 11:15 DCW (Rec: 09/27/20 10:16 DCW [id number]) Lumbar Spine Range of Motion Lumbar Spine Active Degrees Testing Position Standing Flexion 90 Extension 0 Lateral Flexion Left 50 Lateral Flexion Right 47 Comments Lateral flexion measured in cm from fingertips to floor PT-OP-L Special Tests Start: 09/24/20 16:57 Freq: Status: Active Protocol: Document 09/24/20 11:15 DCW (Rec: 09/27/20 10:16 DCW [id number]) Special Tests Lumbar Spine Special Tests A-P Shearing Test Results Negative Standing Flexion Test Results Negative Straight Leg Raise Test Results Negative Slump Test Results Negative Hip Special Tests Lateral SI Compression Test Results Negative Piriformis Test Results Negative RAMONA Test Results Bilateral ipsilateral anterior pain PT-OP-M Strength Start: 09/24/20 16:57 Freq: Status: Active Protocol: Document 09/24/20 11:15 DCW (Rec: 09/27/20 10:16 DCW [id number]) Trunk Strength Trunk Manual Muscle Testing Core Stabilization Pt able to properly PPT and contract TrA, perform SLR, back beging to arch, pt unable to hold. 4-/5 Hip Strength Hip Manual Muscle Testing Right Flexion (L2) 4 Good Extension (S1) 4- Good- Abduction 4- Good- Adduction 4+ Good+ External Rotation 4+ Good+ Internal Rotation 4+ Good+ Left Flexion (L2) 4- Good- Extension (S1) 4- Good- Abduction 4- Good- Adduction 4+ Good+ External Rotation 4+ Good+ Internal Rotation 4+ Good+ Knee Strength Knee Manual Muscle Testing Bilateral Flexion (S2) 5 Normal Extension (L3) 5 Normal Ankle/Foot Strength Ankle and Foot Manual Muscle Testing Bilateral Dorsiflexion (L4) 5 Normal Plantarflexion (S1) 5 Normal PT-OP-Q Treatments Start: 09/24/20 16:57 Freq: Status: Active Protocol: Document 11/12/20 09:51 DCW (Rec: 11/12/20 10:32 DCW [id number]) Cardio Equipment Bicycle (Upright) Duration (Minutes) 6 Resistance 8 Seat Position 4 Gym Equipment Shuttle Balance Red Details Staggered Stance Therapeutic Ball Low Trunk Rotations Exercise Details LTR - hip/knee 90/90 on ball Ball Size/Color Red - 55 cm Body Position Hooklying Manual Therapy Treatment Soft Tissue Mobilization Piriformis Body Location B Piriformis Mobilization Type Sustained Pressure Intensity/Depth Deep Body Position Prone QL Body Location B QL Mobilization Type Sustained Pressure,Trigger Point Release Intensity/Depth Deep Body Position Prone Psoas Body Location B psoas and TFL Mobilization Type Cross-Friction,Sustained Pressure Intensity/Depth Deep Body Position Supine PT-OP-T Assessment and Plan Start: 09/24/20 16:57 Freq: Status: Active Protocol: Document 11/12/20 09:51 DCW (Rec: 11/12/20 10:32 DCW [id number]) Physical Therapy Assessment Impairments Impairments Activity Tolerance,Functional Mobility,Pain,ROM,Soft Tissue Mobility,Strength Goals Three Impairment Lumbar hypomobility results in no extension ROM through lumbar spine [employer] Miner Blasting Goal (LTG) Pt to demonstrate ability to extend lumbar spine 15? to show increased functional mobility LTG Duration 11/22/20 Two Impairment Core weakness results in decreased low back stability Company Miner Blasting Goal (LTG) Pt to present with improved core strength to 4+/5 to improve low back and hip stability in order to improve post-surgical outcomes. LTG Duration 11/22/20 One Impairment Pt does not have an appropriate HEP Short Term Goal (STG) Pt to be independent and compliant with an appropriate HEP STG Duration 10/25/20 Assessment Summary Assessment Pt showing more tone today in T/L paraspinals, but still demonstrating improved mobility over the past few weeks. Physical Therapy Plan Frequency and Duration Frequency of Treatment 2x/Week Duration of Treatment two months Plan of Care Start Date 09/24/20 Plan of Care End Date 11/22/20 Therapeutic Interventions Therapeutic Interventions Home Exercise Program,Joint Mobilizations,Manual Therapy, Neuromuscular Re-education, Patient/Caregiver Education, Self-Care/Home Management,Soft Tissue Mobilization, Therapeutic Activities, Therapeutic Exercises Modalities Cold Pack/Ice Massage,Electric Stimulation,Hot Packs, Ultrasound Next Visit Focus/Plan Next Note Type Treatment Note Next Visit Plan Core strengthening, hip strengthening, STM, flexibility/stretching
--- NOTE | 2020-11-18 12:10 | PT.OTN ---
Current Diagnoses Scoliosis, unspecified (11/18/20) Spondylolisthesis, lumbar region (11/18/20) Spinal stenosis, lumbar region with neurogenic claudication (11/18/20) Physical Therapy Treatment Note PT-OP-A Visit Information Start: 09/24/20 16:57 Freq: Status: Active Protocol: Document 11/18/20 11:18 HH (Rec: 11/18/20 12:10 HH [id number]) Out-Patient Physical Therapy Visit Information Visit Information Visit Type Treatment Note Visit Note Pt brought therapy ball to be inflat. Visit Start Time 09:49 Visit Stop Time 10:30 Total Visit Minutes 41 Visit Number 12 Number of PRINT PRODUCTION COORDINATOR Visits 0 PT-OP-B Current Condition Start: 09/24/20 16:57 Freq: Status: Active Protocol: Document 09/24/20 11:15 DCW (Rec: 09/27/20 10:09 DCW [id number]) Current Condition History of Current Condition Onset Date Multi-year history Current Complaints Low back pain, History of Current Condition Pt is a 59 year old female with a long history of low back and hip pain. Pt was very recently being seen at this clinic for low back and hip pain, with some improvement, but overall continuing pain and stiffness, especially upon rising in the morning. Pt has had recent MRIs of her lumbar spine and hip, which show a number of different injuries, including degenerative changes , spinal stenosis, foraminal narrowing, anterolithesis, and a chronic/degenerative labral tear. Following these MRI results, she has decided that she will likely be undergoing surgerical intervention (lami- fusion L3-S1) within the next few months, and feels like her outcome will be the best if she works on core strengthening and stability prior to surgery. Pt notes that on the morning of 09/22/20, she received a steroid injection, notes her back is feeling pretty good. I had not realized how much it had been affecting me, sapping my energy. Additionally, pt has begun using CBD tincture to help her sleep, and CBD/THC mints for pain, which really seem to help. Prior Treatments and Tests Lumbar MRI: IMPRESSION: 1. Multilevel degenerative changes. 2. Multilevel spinal stenosis most severe at L3-4, L4-5 secondary to anterolithesis and facet/ ligamentum flavum hypertrophy. 3. Mutlilevel foraminal narrowing most severe at L3-4, L4-5, L5-S1 secondary to facet arthropathy and anterolithesis. per Olya Contreras M.D. on 07/30/2020 Hip MRI: IMPRESSION: -Anterosuperior labral tear which could be chronic/ degenerative. -Age-indeterminate mild hamstring origin tendinopathy. -Low-grade strain at the insertion of the left piriformis and obturator internus muscles. -Minimal left subtrochanteric bursal fluid/edema. Per Danny Mccullough M.D. on Future Testing and Treatments Planned Pt reports a follow-up with Dr Landeros on 10/08/20 for decision on surgery. PT-OP-C Subjective Start: 09/24/20 16:57 Freq: Status: Active Protocol: Document 11/18/20 11:18 HH (Rec: 11/18/20 12:10 HH [id number]) OP-PT Subjective Patient Comments Patient Comments It was hard getting up this morning. I think it is because of the long car ride from last night. PT-OP-F Manual Assessment Start: 09/24/20 16:57 Freq: Status: Active Protocol: Document 09/24/20 11:15 DCW (Rec: 09/27/20 10:16 DCW [id number]) Manual Assessments Soft Tissue Assessment Soft Tissue Mobility Assessment Moderate tone and Tenderness to palpation 2/4: Pain with wincing bilateral QL, bilateral lumbar paraspinals, bilateral piriformis Tenderness to palpation 3/4: Wincing and withdraw along bilateral psoas PT-OP-K Range of Motion Start: 09/24/20 16:57 Freq: Status: Active Protocol: Document 09/24/20 11:15 DCW (Rec: 09/27/20 10:16 DCW [id number]) Lumbar Spine Range of Motion Lumbar Spine Active Degrees Testing Position Standing Flexion 90 Extension 0 Lateral Flexion Left 50 Lateral Flexion Right 47 Comments Lateral flexion measured in cm from fingertips to floor PT-OP-L Special Tests Start: 09/24/20 16:57 Freq: Status: Active Protocol: Document 09/24/20 11:15 DCW (Rec: 09/27/20 10:16 DCW [id number]) Special Tests Lumbar Spine Special Tests A-P Shearing Test Results Negative Standing Flexion Test Results Negative Straight Leg Raise Test Results Negative Slump Test Results Negative Hip Special Tests Lateral SI Compression Test Results Negative Piriformis Test Results Negative RAMONA Test Results Bilateral ipsilateral anterior pain PT-OP-M Strength Start: 09/24/20 16:57 Freq: Status: Active Protocol: Document 09/24/20 11:15 DCW (Rec: 09/27/20 10:16 DCW [id number]) Trunk Strength Trunk Manual Muscle Testing Core Stabilization Pt able to properly PPT and contract TrA, perform SLR, back beging to arch, pt unable to hold. 4-/5 Hip Strength Hip Manual Muscle Testing Right Flexion (L2) 4 Good Extension (S1) 4- Good- Abduction 4- Good- Adduction 4+ Good+ External Rotation 4+ Good+ Internal Rotation 4+ Good+ Left Flexion (L2) 4- Good- Extension (S1) 4- Good- Abduction 4- Good- Adduction 4+ Good+ External Rotation 4+ Good+ Internal Rotation 4+ Good+ Knee Strength Knee Manual Muscle Testing Bilateral Flexion (S2) 5 Normal Extension (L3) 5 Normal Ankle/Foot Strength Ankle and Foot Manual Muscle Testing Bilateral Dorsiflexion (L4) 5 Normal Plantarflexion (S1) 5 Normal PT-OP-Q Treatments Start: 09/24/20 16:57 Freq: Status: Active Protocol: Document 11/18/20 11:18 HH (Rec: 11/18/20 12:10 HH [id number]) Cardio Equipment Bicycle (Upright) Duration (Minutes) 6 Resistance 8 Seat Position 4 Gym Equipment Shuttle Balance Red Details Staggered Stance Therapeutic Exercises Sitting Exercises pelvic tilt Equipment Used on 65cm Ball Reps/Minutes 4 mins Standing Exercises standing hip abd with band Side bilateral Reps/Minutes 8 x2 crab walk Side bilateral Equipment Used with yellow band Reps/Minutes 20 ft x 6 Manual Therapy Treatment Soft Tissue Mobilization Piriformis Body Location B Piriformis Mobilization Type Sustained Pressure Intensity/Depth Deep Body Position Prone QL Body Location B QL Mobilization Type Sustained Pressure,Trigger Point Release Intensity/Depth Deep Body Position Prone Psoas Body Location B psoas and TFL Mobilization Type Cross-Friction,Sustained Pressure Intensity/Depth Deep Body Position Supine PT-OP-T Assessment and Plan Start: 09/24/20 16:57 Freq: Status: Active Protocol: Document 11/18/20 11:18 HH (Rec: 11/18/20 12:10 HH [id number]) Physical Therapy Assessment Goals Three Impairment Lumbar hypomobility results in no extension ROM through lumbar spine Terrazzo Journeyman Goal (LTG) Pt to demonstrate ability to extend lumbar spine 15? to show increased functional mobility LTG Duration 11/22/20 Two Impairment Core weakness results in decreased low back stability Terrazzo Journeyman Goal (LTG) Pt to present with improved core strength to 4+/5 to improve low back and hip stability in order to improve post-surgical outcomes. LTG Duration 11/22/20 One Impairment Pt does not have an appropriate HEP Short Term Goal (STG) Pt to be independent and compliant with an appropriate HEP STG Duration 10/25/20 Assessment Summary Assessment Pt reports increased stiffness after driving for long hours yesterday. She zachery session well with lumbar mobiliy and hip strengthening ex. Physical Therapy Plan Frequency and Duration Frequency of Treatment 2x/Week Duration of Treatment two months Plan of Care Start Date 09/24/20 Plan of Care End Date 11/22/20 Next Visit Focus/Plan Next Note Type Treatment Note Next Visit Plan Core strengthening, hip strengthening, STM, flexibility/stretching
--- NOTE | 2020-11-25 15:23 | PT.OTN ---
Current Diagnoses Scoliosis, unspecified (11/25/20) Spondylolisthesis, lumbar region (11/25/20) Spinal stenosis, lumbar region with neurogenic claudication (11/25/20) Physical Therapy Treatment Note PT-OP-A Visit Information Start: 09/24/20 16:57 Freq: Status: Active Protocol: Document 11/25/20 14:30 DCW (Rec: 11/25/20 15:17 DCW [id number]) Out-Patient Physical Therapy Visit Information Visit Information Visit Type Treatment Note Visit Start Time 14:30 Visit Stop Time 15:15 Total Visit Minutes 45 Visit Number 13 Number of CALCULUS TUTOR Visits 0 Evaluation Information Evaluation Date 09/24/20 PT-OP-B Current Condition Start: 09/24/20 16:57 Freq: Status: Active Protocol: Document 09/24/20 11:15 DCW (Rec: 09/27/20 10:09 DCW [id number]) Current Condition History of Current Condition Onset Date Multi-year history Current Complaints Low back pain, History of Current Condition Pt is a 59 year old female with a long history of low back and hip pain. Pt was very recently being seen at this clinic for low back and hip pain, with some improvement, but overall continuing pain and stiffness, especially upon rising in the morning. Pt has had recent MRIs of her lumbar spine and hip, which show a number of different injuries, including degenerative changes , spinal stenosis, foraminal narrowing, anterolithesis, and a chronic/degenerative labral tear. Following these MRI results, she has decided that she will likely be undergoing surgerical intervention (lami- fusion L3-S1) within the next few months, and feels like her outcome will be the best if she works on core strengthening and stability prior to surgery. Pt notes that on the morning of 09/22/20, she received a steroid injection, notes her back is feeling pretty good. I had not realized how much it had been affecting me, sapping my energy. Additionally, pt has begun using CBD tincture to help her sleep, and CBD/THC mints for pain, which really seem to help. Prior Treatments and Tests Lumbar MRI: IMPRESSION: 1. Multilevel degenerative changes. 2. Multilevel spinal stenosis most severe at L3-4, L4-5 secondary to anterolithesis and facet/ ligamentum flavum hypertrophy. 3. Mutlilevel foraminal narrowing most severe at L3-4, L4-5, L5-S1 secondary to facet arthropathy and anterolithesis. per Olya Contreras M.D. on 07/30/2020 Hip MRI: IMPRESSION: -Anterosuperior labral tear which could be chronic/ degenerative. -Age-indeterminate mild hamstring origin tendinopathy. -Low-grade strain at the insertion of the left piriformis and obturator internus muscles. -Minimal left subtrochanteric bursal fluid/edema. Per Danny Mccullough M.D. on Future Testing and Treatments Planned Pt reports a follow-up with Dr Landeros on 10/08/20 for decision on surgery. PT-OP-C Subjective Start: 09/24/20 16:57 Freq: Status: Active Protocol: Document 11/25/20 14:30 DCW (Rec: 11/25/20 15:17 DCW [id number]) OP-PT Subjective Patient Comments Patient Comments Pt reports she did much better this week returning from work on her Sunday drive, notes she was able to take more frequent breaks during her drive. PT-OP-F Manual Assessment Start: 09/24/20 16:57 Freq: Status: Active Protocol: Document 11/25/20 14:30 DCW (Rec: 11/25/20 15:23 DCW [id number]) Manual Assessments Soft Tissue Assessment Soft Tissue Mobility Assessment Moderate tone and Tenderness to palpation 2/4: Pain with wincing bilateral QL, bilateral lumbar paraspinals, bilateral piriformis, bilateral psoas PT-OP-K Range of Motion Start: 09/24/20 16:57 Freq: Status: Active Protocol: Document 11/25/20 14:30 DCW (Rec: 11/25/20 15:23 DCW [id number]) Lumbar Spine Range of Motion Lumbar Spine Active Degrees Testing Position Standing Flexion 98 Extension 6 Lateral Flexion Left 48 Lateral Flexion Right 47 Comments Lateral flexion measured in cm from fingertips to floor PT-OP-L Special Tests Start: 09/24/20 16:57 Freq: Status: Active Protocol: Document 09/24/20 11:15 DCW (Rec: 09/27/20 10:16 DCW [id number]) Special Tests Lumbar Spine Special Tests A-P Shearing Test Results Negative Standing Flexion Test Results Negative Straight Leg Raise Test Results Negative Slump Test Results Negative Hip Special Tests Lateral SI Compression Test Results Negative Piriformis Test Results Negative RAMONA Test Results Bilateral ipsilateral anterior pain PT-OP-M Strength Start: 09/24/20 16:57 Freq: Status: Active Protocol: Document 11/25/20 14:30 DCW (Rec: 11/25/20 15:23 DCW [id number]) Trunk Strength Trunk Manual Muscle Testing Core Stabilization Improved ability to hold TrA contraction, MMT 4/5 PT-OP-Q Treatments Start: 09/24/20 16:57 Freq: Status: Active Protocol: Document 11/25/20 14:30 DCW (Rec: 11/25/20 15:17 DCW [id number]) Cardio Equipment Elliptical Duration (Minutes) 5 Resistance 4 Gym Equipment Cable Column (Body Solid) Pallof Press Resistance 10# Reps/Time x10 bilaterally Shuttle Balance Red Details Staggered Stance Therapeutic Ball Low Trunk Rotations Exercise Details LTR - hip/knee 90/90 on ball Ball Size/Color Red - 55 cm Body Position Hooklying Therapeutic Exercises Standing Exercises hip elevation Standing Exercise Name Hip hiking on step Side bilateral Manual Therapy Treatment Soft Tissue Mobilization Piriformis Body Location B Piriformis Mobilization Type Sustained Pressure Intensity/Depth Deep Body Position Prone QL Body Location B QL Mobilization Type Sustained Pressure,Trigger Point Release Intensity/Depth Deep Body Position Prone Psoas Body Location B psoas and TFL Mobilization Type Cross-Friction,Sustained Pressure Intensity/Depth Deep Body Position Supine PT-OP-T Assessment and Plan Start: 09/24/20 16:57 Freq: Status: Active Protocol: Document 11/25/20 14:30 DCW (Rec: 11/25/20 15:17 DCW [id number]) Physical Therapy Assessment Impairments Impairments Activity Tolerance,Functional Mobility,Pain,ROM,Soft Tissue Mobility,Strength Goals Three Impairment Lumbar hypomobility results in no extension ROM through lumbar spine Fdc Goal (LTG) Pt to demonstrate ability to extend lumbar spine 15? to show increased functional mobility LTG Duration 11/22/20 Two Impairment Core weakness results in decreased low back stability Patcher Wood Welder Goal (LTG) Pt to present with improved core strength to 4+/5 to improve low back and hip stability in order to improve post-surgical outcomes. LTG Duration 11/22/20 One Impairment Pt does not have an appropriate HEP Short Term Goal (STG) Pt to be independent and compliant with an appropriate HEP STG Duration 10/25/20 Assessment Summary Assessment Making some progress with lumbar mobility, core strenght , and decreasing lumbar tone. Pt still looking forward to scheduling lami/fusion in December, hopeful continued strengthening will improve recovery. Physical Therapy Plan Frequency and Duration Frequency of Treatment 2x/Week Duration of Treatment two months Plan of Care Start Date 11/25/20 Plan of Care End Date 01/25/21 Therapeutic Interventions Therapeutic Interventions Home Exercise Program,Joint Mobilizations,Manual Therapy, Neuromuscular Re-education, Patient/Caregiver Education, Self-Care/Home Management,Soft Tissue Mobilization, Therapeutic Activities, Therapeutic Exercises Modalities Cold Pack/Ice Massage,Electric Stimulation,Hot Packs, Ultrasound Next Visit Focus/Plan Next Note Type Treatment Note Next Visit Plan Core strengthening, hip strengthening, STM, flexibility/stretching
--- NOTE | 2020-11-25 15:25 | PT.OPPOC ---
Physical, Occupational & Speech Therapy At [facility] Current Diagnoses Scoliosis, unspecified (11/25/20) Spondylolisthesis, lumbar region (11/25/20) Spinal stenosis, lumbar region with neurogenic claudication (11/25/20) Visit Care Team Role Provider Type Melanie Kebede MD Family Provider Physician Primary Care Provider Specialty: Family Practice Address: [address] [place] [address], [facility] [place], [address] Email: [email or web address] [email or web address] Landeros MD Attending Provider Physician Referring Provider Specialty: Orthopedic Surgery Address: [address] [place] [address], [id number] Email: [email or web address] Plan Of Care PT-OP-T Assessment and Plan Start: 09/24/20 16:57 Freq: Status: Active Protocol: Document 11/25/20 14:30 DCW (Rec: 11/25/20 15:17 DCW [id number]) Physical Therapy Assessment Impairments Impairments Activity Tolerance,Functional Mobility,Pain,ROM,Soft Tissue Mobility,Strength Goals Three Impairment Lumbar hypomobility results in no extension ROM through lumbar spine Mcfp Goal (LTG) Pt to demonstrate ability to extend lumbar spine 15? to show increased functional mobility LTG Duration 11/22/20 Two Impairment Core weakness results in decreased low back stability Federal Agent Goal (LTG) Pt to present with improved core strength to 4+/5 to improve low back and hip stability in order to improve post-surgical outcomes. LTG Duration 11/22/20 One Impairment Pt does not have an appropriate HEP Short Term Goal (STG) Pt to be independent and compliant with an appropriate HEP STG Duration 10/25/20 Assessment Summary Assessment Making some progress with lumbar mobility, core strenght , and decreasing lumbar tone. Pt still looking forward to scheduling lami/fusion in December, hopeful continued strengthening will improve recovery. Physical Therapy Plan Frequency and Duration Frequency of Treatment 2x/Week Duration of Treatment two months Plan of Care Start Date 11/25/20 Plan of Care End Date 01/25/21 Therapeutic Interventions Therapeutic Interventions Home Exercise Program,Joint Mobilizations,Manual Therapy, Neuromuscular Re-education, Patient/Caregiver Education, Self-Care/Home Management,Soft Tissue Mobilization, Therapeutic Activities, Therapeutic Exercises Modalities Cold Pack/Ice Massage,Electric Stimulation,Hot Packs, Ultrasound Next Visit Focus/Plan Next Note Type Treatment Note Next Visit Plan Core strengthening, hip strengthening, STM, flexibility/stretching Plan of Care Dates Plan of Care Start Date 11/25/20 Plan of Care End Date 01/25/21 Electronically Signed by: Rudi Doyle, PT 11/25/20 [id number] Please Sign and Return: I have reviewed this Plan of Care and certify that the skilled therapy services above are required to meet the patient?s needs. Physician Signature Date Printed Name and Credentials Clinical Instructor Signature Printed Name and Credentials
--- NOTE | 2020-12-03 16:07 | PT.OTN ---
Current Diagnoses Scoliosis, unspecified (12/03/20) Spondylolisthesis, lumbar region (12/03/20) Spinal stenosis, lumbar region with neurogenic claudication (12/03/20) Physical Therapy Treatment Note PT-OP-A Visit Information Start: 09/24/20 16:57 Freq: Status: Active Protocol: Document 12/03/20 15:35 DCW (Rec: 12/03/20 16:07 DCW [id number]) Out-Patient Physical Therapy Visit Information Visit Information Visit Type Treatment Note Visit Note 20 min late Visit Start Time 15:35 Visit Stop Time 16:05 Total Visit Minutes 30 Visit Number 14 Number of COMBAT ENGINEER Visits 0 Evaluation Information Evaluation Date 09/24/20 PT-OP-B Current Condition Start: 09/24/20 16:57 Freq: Status: Active Protocol: Document 09/24/20 11:15 DCW (Rec: 09/27/20 10:09 DCW [id number]) Current Condition History of Current Condition Onset Date Multi-year history Current Complaints Low back pain, History of Current Condition Pt is a 59 year old female with a long history of low back and hip pain. Pt was very recently being seen at this clinic for low back and hip pain, with some improvement, but overall continuing pain and stiffness, especially upon rising in the morning. Pt has had recent MRIs of her lumbar spine and hip, which show a number of different injuries, including degenerative changes , spinal stenosis, foraminal narrowing, anterolithesis, and a chronic/degenerative labral tear. Following these MRI results, she has decided that she will likely be undergoing surgerical intervention (lami- fusion L3-S1) within the next few months, and feels like her outcome will be the best if she works on core strengthening and stability prior to surgery. Pt notes that on the morning of 09/22/20, she received a steroid injection, notes her back is feeling pretty good. I had not realized how much it had been affecting me, sapping my energy. Additionally, pt has begun using CBD tincture to help her sleep, and CBD/THC mints for pain, which really seem to help. Prior Treatments and Tests Lumbar MRI: IMPRESSION: 1. Multilevel degenerative changes. 2. Multilevel spinal stenosis most severe at L3-4, L4-5 secondary to anterolithesis and facet/ ligamentum flavum hypertrophy. 3. Mutlilevel foraminal narrowing most severe at L3-4, L4-5, L5-S1 secondary to facet arthropathy and anterolithesis. per Olya Contreras M.D. on 07/30/2020 Hip MRI: IMPRESSION: -Anterosuperior labral tear which could be chronic/ degenerative. -Age-indeterminate mild hamstring origin tendinopathy. -Low-grade strain at the insertion of the left piriformis and obturator internus muscles. -Minimal left subtrochanteric bursal fluid/edema. Per Danny Mccullough M.D. on Future Testing and Treatments Planned Pt reports a follow-up with Dr Landeros on 10/08/20 for decision on surgery. PT-OP-C Subjective Start: 09/24/20 16:57 Freq: Status: Active Protocol: Document 12/03/20 15:35 DCW (Rec: 12/03/20 16:07 DCW [id number]) OP-PT Subjective Patient Comments Patient Comments It's not great today. I've just been having a harder time with things. I am feeling stronger in my core, but I keep pushing to try to get scheduled to be seen by the surgeon so I can get surgery figured out. PT-OP-F Manual Assessment Start: 09/24/20 16:57 Freq: Status: Active Protocol: Document 11/25/20 14:30 DCW (Rec: 11/25/20 15:23 DCW [id number]) Manual Assessments Soft Tissue Assessment Soft Tissue Mobility Assessment Moderate tone and Tenderness to palpation 2/4: Pain with wincing bilateral QL, bilateral lumbar paraspinals, bilateral piriformis, bilateral psoas PT-OP-K Range of Motion Start: 09/24/20 16:57 Freq: Status: Active Protocol: Document 11/25/20 14:30 DCW (Rec: 11/25/20 15:23 DCW [id number]) Lumbar Spine Range of Motion Lumbar Spine Active Degrees Testing Position Standing Flexion 98 Extension 6 Lateral Flexion Left 48 Lateral Flexion Right 47 Comments Lateral flexion measured in cm from fingertips to floor PT-OP-L Special Tests Start: 09/24/20 16:57 Freq: Status: Active Protocol: Document 09/24/20 11:15 DCW (Rec: 09/27/20 10:16 DCW [id number]) Special Tests Lumbar Spine Special Tests A-P Shearing Test Results Negative Standing Flexion Test Results Negative Straight Leg Raise Test Results Negative Slump Test Results Negative Hip Special Tests Lateral SI Compression Test Results Negative Piriformis Test Results Negative RAMONA Test Results Bilateral ipsilateral anterior pain PT-OP-M Strength Start: 09/24/20 16:57 Freq: Status: Active Protocol: Document 11/25/20 14:30 DCW (Rec: 11/25/20 15:23 DCW [id number]) Trunk Strength Trunk Manual Muscle Testing Core Stabilization Improved ability to hold TrA contraction, MMT 4/5 PT-OP-Q Treatments Start: 09/24/20 16:57 Freq: Status: Active Protocol: Document 12/03/20 15:35 DCW (Rec: 12/03/20 16:07 DCW [id number]) Cardio Equipment Bicycle (Upright) Duration (Minutes) 6 Resistance 8 Seat Position 4 Gym Equipment Cable Column (Body Solid) Pallof Press Resistance 15# Reps/Time x10 bilaterally Manual Therapy Treatment Soft Tissue Mobilization Piriformis Body Location B Piriformis Mobilization Type Sustained Pressure Intensity/Depth Deep Body Position Prone QL Body Location B QL Mobilization Type Sustained Pressure,Trigger Point Release Intensity/Depth Deep Body Position Prone Psoas Body Location B psoas and TFL Mobilization Type Cross-Friction,Sustained Pressure Intensity/Depth Deep Body Position Supine PT-OP-T Assessment and Plan Start: 09/24/20 16:57 Freq: Status: Active Protocol: Document 12/03/20 15:35 DCW (Rec: 12/03/20 16:07 DCW [id number]) Physical Therapy Assessment Impairments Impairments Activity Tolerance,Functional Mobility,Pain,ROM,Soft Tissue Mobility,Strength Goals Three Impairment Lumbar hypomobility results in no extension ROM through lumbar spine Event Coordinator Marketing And Sales Goal (LTG) Pt to demonstrate ability to extend lumbar spine 15? to show increased functional mobility LTG Duration 11/22/20 Two Impairment Core weakness results in decreased low back stability Chcf Goal (LTG) Pt to present with improved core strength to 4+/5 to improve low back and hip stability in order to improve post-surgical outcomes. LTG Duration 11/22/20 One Impairment Pt does not have an appropriate HEP Short Term Goal (STG) Pt to be independent and compliant with an appropriate HEP STG Duration 10/25/20 Assessment Summary Assessment Pt showing improvement with strength, however subjective complaints have not made much change. Physical Therapy Plan Frequency and Duration Frequency of Treatment 2x/Week Duration of Treatment two months Plan of Care Start Date 11/25/20 Plan of Care End Date 01/25/21 Therapeutic Interventions Therapeutic Interventions Home Exercise Program,Joint Mobilizations,Manual Therapy, Neuromuscular Re-education, Patient/Caregiver Education, Self-Care/Home Management,Soft Tissue Mobilization, Therapeutic Activities, Therapeutic Exercises Modalities Cold Pack/Ice Massage,Electric Stimulation,Hot Packs, Ultrasound Next Visit Focus/Plan Next Note Type Treatment Note Next Visit Plan Core strengthening, hip strengthening, STM, flexibility/stretching
--- NOTE | 2020-12-09 17:39 | PT.OTN ---
Current Diagnoses Scoliosis, unspecified (12/09/20) Spondylolisthesis, lumbar region (12/09/20) Spinal stenosis, lumbar region with neurogenic claudication (12/09/20) Physical Therapy Treatment Note PT-OP-A Visit Information Start: 09/24/20 16:57 Freq: Status: Active Protocol: Document 12/09/20 16:55 DCW (Rec: 12/09/20 17:39 DCW [id number]) Out-Patient Physical Therapy Visit Information Visit Information Visit Type Treatment Note Visit Note 10 min late Visit Start Time 16:55 Visit Stop Time 17:35 Total Visit Minutes 40 Visit Number 15 Number of TECHNICAL SERVICE REPRESENTATIVE Visits 0 Evaluation Information Evaluation Date 09/24/20 PT-OP-B Current Condition Start: 09/24/20 16:57 Freq: Status: Active Protocol: Document 09/24/20 11:15 DCW (Rec: 09/27/20 10:09 DCW [id number]) Current Condition History of Current Condition Onset Date Multi-year history Current Complaints Low back pain, History of Current Condition Pt is a 59 year old female with a long history of low back and hip pain. Pt was very recently being seen at this clinic for low back and hip pain, with some improvement, but overall continuing pain and stiffness, especially upon rising in the morning. Pt has had recent MRIs of her lumbar spine and hip, which show a number of different injuries, including degenerative changes , spinal stenosis, foraminal narrowing, anterolithesis, and a chronic/degenerative labral tear. Following these MRI results, she has decided that she will likely be undergoing surgerical intervention (lami- fusion L3-S1) within the next few months, and feels like her outcome will be the best if she works on core strengthening and stability prior to surgery. Pt notes that on the morning of 09/22/20, she received a steroid injection, notes her back is feeling pretty good. I had not realized how much it had been affecting me, sapping my energy. Additionally, pt has begun using CBD tincture to help her sleep, and CBD/THC mints for pain, which really seem to help. Prior Treatments and Tests Lumbar MRI: IMPRESSION: 1. Multilevel degenerative changes. 2. Multilevel spinal stenosis most severe at L3-4, L4-5 secondary to anterolithesis and facet/ ligamentum flavum hypertrophy. 3. Mutlilevel foraminal narrowing most severe at L3-4, L4-5, L5-S1 secondary to facet arthropathy and anterolithesis. per Olya Contreras M.D. on 07/30/2020 Hip MRI: IMPRESSION: -Anterosuperior labral tear which could be chronic/ degenerative. -Age-indeterminate mild hamstring origin tendinopathy. -Low-grade strain at the insertion of the left piriformis and obturator internus muscles. -Minimal left subtrochanteric bursal fluid/edema. Per Danny Mccullough M.D. on Future Testing and Treatments Planned Pt reports a follow-up with Dr Landeros on 10/08/20 for decision on surgery. PT-OP-C Subjective Start: 09/24/20 16:57 Freq: Status: Active Protocol: Document 12/09/20 16:55 DCW (Rec: 12/09/20 17:39 DCW [id number]) OP-PT Subjective Patient Comments Patient Comments Pt reports she has been using her home TENS unit, typically for ten hours at a time. It helps drop her pain by 2 points on a 10 point scale. PT-OP-F Manual Assessment Start: 09/24/20 16:57 Freq: Status: Active Protocol: Document 11/25/20 14:30 DCW (Rec: 11/25/20 15:23 DCW [id number]) Manual Assessments Soft Tissue Assessment Soft Tissue Mobility Assessment Moderate tone and Tenderness to palpation 2/4: Pain with wincing bilateral QL, bilateral lumbar paraspinals, bilateral piriformis, bilateral psoas PT-OP-K Range of Motion Start: 09/24/20 16:57 Freq: Status: Active Protocol: Document 11/25/20 14:30 DCW (Rec: 11/25/20 15:23 DCW [id number]) Lumbar Spine Range of Motion Lumbar Spine Active Degrees Testing Position Standing Flexion 98 Extension 6 Lateral Flexion Left 48 Lateral Flexion Right 47 Comments Lateral flexion measured in cm from fingertips to floor PT-OP-L Special Tests Start: 09/24/20 16:57 Freq: Status: Active Protocol: Document 09/24/20 11:15 DCW (Rec: 09/27/20 10:16 DCW [id number]) Special Tests Lumbar Spine Special Tests A-P Shearing Test Results Negative Standing Flexion Test Results Negative Straight Leg Raise Test Results Negative Slump Test Results Negative Hip Special Tests Lateral SI Compression Test Results Negative Piriformis Test Results Negative RAMONA Test Results Bilateral ipsilateral anterior pain PT-OP-M Strength Start: 09/24/20 16:57 Freq: Status: Active Protocol: Document 11/25/20 14:30 DCW (Rec: 11/25/20 15:23 DCW [id number]) Trunk Strength Trunk Manual Muscle Testing Core Stabilization Improved ability to hold TrA contraction, MMT 4/5 PT-OP-Q Treatments Start: 09/24/20 16:57 Freq: Status: Active Protocol: Document 12/09/20 16:55 DCW (Rec: 12/09/20 17:39 DCW [id number]) Cardio Equipment Bicycle (Upright) Duration (Minutes) 5 Resistance 8 Seat Position 4 Gym Equipment Cable Column (Body Solid) Pallof Press Resistance 15# Reps/Time x10 bilaterally Shuttle Balance Red Details Staggered c ball toss, lateral weight shift Manual Therapy Treatment Soft Tissue Mobilization Piriformis Body Location B Piriformis Mobilization Type Sustained Pressure Intensity/Depth Deep Body Position Prone QL Body Location B QL Mobilization Type Sustained Pressure,Trigger Point Release Intensity/Depth Deep Body Position Prone Psoas Body Location B psoas and TFL Mobilization Type Cross-Friction,Sustained Pressure Intensity/Depth Deep Body Position Supine PT-OP-T Assessment and Plan Start: 09/24/20 16:57 Freq: Status: Active Protocol: Document 12/09/20 16:55 DCW (Rec: 12/09/20 17:39 DCW [id number]) Physical Therapy Assessment Impairments Impairments Activity Tolerance,Functional Mobility,Pain,ROM,Soft Tissue Mobility,Strength Goals Three Impairment Lumbar hypomobility results in no extension ROM through lumbar spine High Speed Operator Goal (LTG) Pt to demonstrate ability to extend lumbar spine 15? to show increased functional mobility LTG Duration 11/22/20 Two Impairment Core weakness results in decreased low back stability High Speed Operator Goal (LTG) Pt to present with improved core strength to 4+/5 to improve low back and hip stability in order to improve post-surgical outcomes. LTG Duration 11/22/20 One Impairment Pt does not have an appropriate HEP Short Term Goal (STG) Pt to be independent and compliant with an appropriate HEP STG Duration 10/25/20 Assessment Summary Assessment Pt interested in performing some measurements and testing next week to be able to set goals for herself for strength prior to surgery. Physical Therapy Plan Frequency and Duration Frequency of Treatment 2x/Week Duration of Treatment two months Plan of Care Start Date 11/25/20 Plan of Care End Date 01/25/21 Therapeutic Interventions Therapeutic Interventions Home Exercise Program,Joint Mobilizations,Manual Therapy, Neuromuscular Re-education, Patient/Caregiver Education, Self-Care/Home Management,Soft Tissue Mobilization, Therapeutic Activities, Therapeutic Exercises Modalities Cold Pack/Ice Massage,Electric Stimulation,Hot Packs, Ultrasound Next Visit Focus/Plan Next Note Type Treatment Note Next Visit Plan Core strengthening, hip strengthening, STM, flexibility/stretching
--- NOTE | 2020-12-15 16:08 | PT.OTN ---
Current Diagnoses Scoliosis, unspecified (12/15/20) Spondylolisthesis, lumbar region (12/15/20) Spinal stenosis, lumbar region with neurogenic claudication (12/15/20) Physical Therapy Treatment Note PT-OP-A Visit Information Start: 09/24/20 16:57 Freq: Status: Active Protocol: Document 12/15/20 15:19 DCW (Rec: 12/15/20 16:08 DCW [id number]) Out-Patient Physical Therapy Visit Information Visit Information Visit Type Treatment Note Visit Start Time 15:19 Visit Stop Time 16:00 Total Visit Minutes 41 Visit Number 16 Number of PUBLIC ADDRESS SYSTEMS MECHANIC Visits 0 Evaluation Information Evaluation Date 09/24/20 PT-OP-B Current Condition Start: 09/24/20 16:57 Freq: Status: Active Protocol: Document 09/24/20 11:15 DCW (Rec: 09/27/20 10:09 DCW [id number]) Current Condition History of Current Condition Onset Date Multi-year history Current Complaints Low back pain, History of Current Condition Pt is a 59 year old female with a long history of low back and hip pain. Pt was very recently being seen at this clinic for low back and hip pain, with some improvement, but overall continuing pain and stiffness, especially upon rising in the morning. Pt has had recent MRIs of her lumbar spine and hip, which show a number of different injuries, including degenerative changes , spinal stenosis, foraminal narrowing, anterolithesis, and a chronic/degenerative labral tear. Following these MRI results, she has decided that she will likely be undergoing surgerical intervention (lami- fusion L3-S1) within the next few months, and feels like her outcome will be the best if she works on core strengthening and stability prior to surgery. Pt notes that on the morning of 09/22/20, she received a steroid injection, notes her back is feeling pretty good. I had not realized how much it had been affecting me, sapping my energy. Additionally, pt has begun using CBD tincture to help her sleep, and CBD/THC mints for pain, which really seem to help. Prior Treatments and Tests Lumbar MRI: IMPRESSION: 1. Multilevel degenerative changes. 2. Multilevel spinal stenosis most severe at L3-4, L4-5 secondary to anterolithesis and facet/ ligamentum flavum hypertrophy. 3. Mutlilevel foraminal narrowing most severe at L3-4, L4-5, L5-S1 secondary to facet arthropathy and anterolithesis. per Olya Contreras M.D. on 07/30/2020 Hip MRI: IMPRESSION: -Anterosuperior labral tear which could be chronic/ degenerative. -Age-indeterminate mild hamstring origin tendinopathy. -Low-grade strain at the insertion of the left piriformis and obturator internus muscles. -Minimal left subtrochanteric bursal fluid/edema. Per Danny Mccullough M.D. on Future Testing and Treatments Planned Pt reports a follow-up with Dr Landeros on 10/08/20 for decision on surgery. PT-OP-C Subjective Start: 09/24/20 16:57 Freq: Status: Active Protocol: Document 12/15/20 15:19 DCW (Rec: 12/15/20 16:08 DCW [id number]) OP-PT Subjective Patient Comments Patient Comments Pt wearing her TENS unit into PT today for pain relief. Would like to focus on giving herself core strength goals to work toward. PT-OP-F Manual Assessment Start: 09/24/20 16:57 Freq: Status: Active Protocol: Document 11/25/20 14:30 DCW (Rec: 11/25/20 15:23 DCW [id number]) Manual Assessments Soft Tissue Assessment Soft Tissue Mobility Assessment Moderate tone and Tenderness to palpation 2/4: Pain with wincing bilateral QL, bilateral lumbar paraspinals, bilateral piriformis, bilateral psoas PT-OP-K Range of Motion Start: 09/24/20 16:57 Freq: Status: Active Protocol: Document 11/25/20 14:30 DCW (Rec: 11/25/20 15:23 DCW [id number]) Lumbar Spine Range of Motion Lumbar Spine Active Degrees Testing Position Standing Flexion 98 Extension 6 Lateral Flexion Left 48 Lateral Flexion Right 47 Comments Lateral flexion measured in cm from fingertips to floor PT-OP-L Special Tests Start: 09/24/20 16:57 Freq: Status: Active Protocol: Document 09/24/20 11:15 DCW (Rec: 09/27/20 10:16 DCW [id number]) Special Tests Lumbar Spine Special Tests A-P Shearing Test Results Negative Standing Flexion Test Results Negative Straight Leg Raise Test Results Negative Slump Test Results Negative Hip Special Tests Lateral SI Compression Test Results Negative Piriformis Test Results Negative RAMONA Test Results Bilateral ipsilateral anterior pain PT-OP-M Strength Start: 09/24/20 16:57 Freq: Status: Active Protocol: Document 11/25/20 14:30 DCW (Rec: 11/25/20 15:23 DCW [id number]) Trunk Strength Trunk Manual Muscle Testing Core Stabilization Improved ability to hold TrA contraction, MMT 4/5 PT-OP-Q Treatments Start: 09/24/20 16:57 Freq: Status: Active Protocol: Document 12/15/20 15:19 DCW (Rec: 12/15/20 16:08 DCW [id number]) Cardio Equipment Elliptical Duration (Minutes) 5 Resistance 4 Therapeutic Exercises Supine Exercises 2 Supine Exercise Name PPT /c TrA - DLR Reps/Minutes 17 seconds 1 Supine Exercise Name Bilateral leg drop Reps/Minutes x7 Prone Exercises 1 Prone Exercise Name Plank Equipment Used 62 seconds Sidelying Exercises 2 Sidelying Exercise Name Side plank - left Reps/Minutes 45 seconds 1 Sidelying Exercise Name Side plank - right Reps/Minutes 32 seconds Manual Therapy Treatment Soft Tissue Mobilization QL Body Location B QL Mobilization Type Sustained Pressure,Trigger Point Release Intensity/Depth Deep Body Position Prone Psoas Body Location B psoas and TFL Mobilization Type Cross-Friction,Sustained Pressure Intensity/Depth Deep Body Position Supine PT-OP-T Assessment and Plan Start: 09/24/20 16:57 Freq: Status: Active Protocol: Document 12/15/20 15:19 DCW (Rec: 12/15/20 16:08 DCW [id number]) Physical Therapy Assessment Impairments Impairments Activity Tolerance,Functional Mobility,Pain,ROM,Soft Tissue Mobility,Strength Goals Three Impairment Lumbar hypomobility results in no extension ROM through lumbar spine Mcfp Goal (LTG) Pt to demonstrate ability to extend lumbar spine 15? to show increased functional mobility LTG Duration 11/22/20 Two Impairment Core weakness results in decreased low back stability Mcfp Goal (LTG) Pt to present with improved core strength to 4+/5 to improve low back and hip stability in order to improve post-surgical outcomes. LTG Duration 11/22/20 One Impairment Pt does not have an appropriate HEP Short Term Goal (STG) Pt to be independent and compliant with an appropriate HEP STG Duration 10/25/20 Assessment Summary Assessment Pt performed some core strengthening exercises today, wanted a baseline of her ability so she could track her own progress leading up to surgery. Physical Therapy Plan Frequency and Duration Frequency of Treatment 2x/Week Duration of Treatment two months Plan of Care Start Date 11/25/20 Plan of Care End Date 01/25/21 Therapeutic Interventions Therapeutic Interventions Home Exercise Program,Joint Mobilizations,Manual Therapy, Neuromuscular Re-education, Patient/Caregiver Education, Self-Care/Home Management,Soft Tissue Mobilization, Therapeutic Activities, Therapeutic Exercises Modalities Cold Pack/Ice Massage,Electric Stimulation,Hot Packs, Ultrasound Next Visit Focus/Plan Next Note Type Treatment Note Next Visit Plan Core strengthening, hip strengthening, STM, flexibility/stretching
--- NOTE | 2020-12-21 15:17 | PT.OTN ---
Current Diagnoses Scoliosis, unspecified (12/21/20) Spondylolisthesis, lumbar region (12/21/20) Spinal stenosis, lumbar region with neurogenic claudication (12/21/20) Physical Therapy Treatment Note PT-OP-A Visit Information Start: 09/24/20 16:57 Freq: Status: Active Protocol: Document 12/21/20 14:35 DCW (Rec: 12/21/20 15:17 DCW [id number]) Out-Patient Physical Therapy Visit Information Visit Information Visit Type Treatment Note Visit Start Time 14:35 Visit Stop Time 15:15 Total Visit Minutes 40 Visit Number 17 Number of MILL PLATFORM SUPERVISOR Visits 0 Evaluation Information Evaluation Date 09/24/20 PT-OP-B Current Condition Start: 09/24/20 16:57 Freq: Status: Active Protocol: Document 09/24/20 11:15 DCW (Rec: 09/27/20 10:09 DCW [id number]) Current Condition History of Current Condition Onset Date Multi-year history Current Complaints Low back pain, History of Current Condition Pt is a 59 year old female with a long history of low back and hip pain. Pt was very recently being seen at this clinic for low back and hip pain, with some improvement, but overall continuing pain and stiffness, especially upon rising in the morning. Pt has had recent MRIs of her lumbar spine and hip, which show a number of different injuries, including degenerative changes , spinal stenosis, foraminal narrowing, anterolithesis, and a chronic/degenerative labral tear. Following these MRI results, she has decided that she will likely be undergoing surgerical intervention (lami- fusion L3-S1) within the next few months, and feels like her outcome will be the best if she works on core strengthening and stability prior to surgery. Pt notes that on the morning of 09/22/20, she received a steroid injection, notes her back is feeling pretty good. I had not realized how much it had been affecting me, sapping my energy. Additionally, pt has begun using CBD tincture to help her sleep, and CBD/THC mints for pain, which really seem to help. Prior Treatments and Tests Lumbar MRI: IMPRESSION: 1. Multilevel degenerative changes. 2. Multilevel spinal stenosis most severe at L3-4, L4-5 secondary to anterolithesis and facet/ ligamentum flavum hypertrophy. 3. Mutlilevel foraminal narrowing most severe at L3-4, L4-5, L5-S1 secondary to facet arthropathy and anterolithesis. per Olya Contreras M.D. on 07/30/2020 Hip MRI: IMPRESSION: -Anterosuperior labral tear which could be chronic/ degenerative. -Age-indeterminate mild hamstring origin tendinopathy. -Low-grade strain at the insertion of the left piriformis and obturator internus muscles. -Minimal left subtrochanteric bursal fluid/edema. Per Danny Mccullough M.D. on Future Testing and Treatments Planned Pt reports a follow-up with Dr Landeros on 10/08/20 for decision on surgery. PT-OP-C Subjective Start: 09/24/20 16:57 Freq: Status: Active Protocol: Document 12/21/20 14:35 DCW (Rec: 12/21/20 15:17 DCW [id number]) OP-PT Subjective Patient Comments Patient Comments Pt admits that she is uncomfortable today. PT-OP-F Manual Assessment Start: 09/24/20 16:57 Freq: Status: Active Protocol: Document 11/25/20 14:30 DCW (Rec: 11/25/20 15:23 DCW [id number]) Manual Assessments Soft Tissue Assessment Soft Tissue Mobility Assessment Moderate tone and Tenderness to palpation 2/4: Pain with wincing bilateral QL, bilateral lumbar paraspinals, bilateral piriformis, bilateral psoas PT-OP-K Range of Motion Start: 09/24/20 16:57 Freq: Status: Active Protocol: Document 11/25/20 14:30 DCW (Rec: 11/25/20 15:23 DCW [id number]) Lumbar Spine Range of Motion Lumbar Spine Active Degrees Testing Position Standing Flexion 98 Extension 6 Lateral Flexion Left 48 Lateral Flexion Right 47 Comments Lateral flexion measured in cm from fingertips to floor PT-OP-L Special Tests Start: 09/24/20 16:57 Freq: Status: Active Protocol: Document 09/24/20 11:15 DCW (Rec: 09/27/20 10:16 DCW [id number]) Special Tests Lumbar Spine Special Tests A-P Shearing Test Results Negative Standing Flexion Test Results Negative Straight Leg Raise Test Results Negative Slump Test Results Negative Hip Special Tests Lateral SI Compression Test Results Negative Piriformis Test Results Negative RAMONA Test Results Bilateral ipsilateral anterior pain PT-OP-M Strength Start: 09/24/20 16:57 Freq: Status: Active Protocol: Document 11/25/20 14:30 DCW (Rec: 11/25/20 15:23 DCW [id number]) Trunk Strength Trunk Manual Muscle Testing Core Stabilization Improved ability to hold TrA contraction, MMT 4/5 PT-OP-Q Treatments Start: 09/24/20 16:57 Freq: Status: Active Protocol: Document 12/21/20 14:35 DCW (Rec: 12/21/20 15:17 DCW [id number]) Cardio Equipment Bicycle (Upright) Duration (Minutes) 5 Resistance 8 Seat Position 4 Gym Equipment Shuttle Balance Red Details Staggered, lateral weight shift Manual Therapy Treatment Soft Tissue Mobilization Piriformis Body Location B Piriformis Mobilization Type Sustained Pressure Intensity/Depth Deep Body Position Prone QL Body Location B QL Mobilization Type Sustained Pressure,Trigger Point Release Intensity/Depth Deep Body Position Prone Psoas Body Location B psoas and TFL Mobilization Type Cross-Friction,Sustained Pressure Intensity/Depth Deep Body Position Supine PT-OP-T Assessment and Plan Start: 09/24/20 16:57 Freq: Status: Active Protocol: Document 12/21/20 14:35 DCW (Rec: 12/21/20 15:17 DCW [id number]) Physical Therapy Assessment Impairments Impairments Activity Tolerance,Functional Mobility,Pain,ROM,Soft Tissue Mobility,Strength Goals Three Impairment Lumbar hypomobility results in no extension ROM through lumbar spine Presiding Steward Goal (LTG) Pt to demonstrate ability to extend lumbar spine 15? to show increased functional mobility LTG Duration 11/22/20 Two Impairment Core weakness results in decreased low back stability Penitentiary Goal (LTG) Pt to present with improved core strength to 4+/5 to improve low back and hip stability in order to improve post-surgical outcomes. LTG Duration 11/22/20 One Impairment Pt does not have an appropriate HEP Short Term Goal (STG) Pt to be independent and compliant with an appropriate HEP STG Duration 10/25/20 Assessment Summary Assessment Pt getting more and more anxious to get her surgery planned. Noticing increased pain and becoming more limited with her daily activities. Physical Therapy Plan Frequency and Duration Frequency of Treatment 2x/Week Duration of Treatment two months Plan of Care Start Date 11/25/20 Plan of Care End Date 01/25/21 Therapeutic Interventions Therapeutic Interventions Home Exercise Program,Joint Mobilizations,Manual Therapy, Neuromuscular Re-education, Patient/Caregiver Education, Self-Care/Home Management,Soft Tissue Mobilization, Therapeutic Activities, Therapeutic Exercises Modalities Cold Pack/Ice Massage,Electric Stimulation,Hot Packs, Ultrasound Next Visit Focus/Plan Next Note Type Treatment Note Next Visit Plan Core strengthening, hip strengthening, STM, flexibility/stretching
--- NOTE | 2020-12-23 17:32 | PT.OTN ---
Current Diagnoses Scoliosis, unspecified (12/23/20) Spondylolisthesis, lumbar region (12/23/20) Spinal stenosis, lumbar region with neurogenic claudication (12/23/20) Physical Therapy Treatment Note PT-OP-A Visit Information Start: 09/24/20 16:57 Freq: Status: Active Protocol: Document 12/23/20 16:48 DCW (Rec: 12/23/20 17:32 DCW [id number]) Out-Patient Physical Therapy Visit Information Visit Information Visit Type Treatment Note Visit Start Time 16:48 Visit Stop Time 17:30 Total Visit Minutes 42 Visit Number 18 Number of WINEMAKER Visits 0 Evaluation Information Evaluation Date 09/24/20 PT-OP-B Current Condition Start: 09/24/20 16:57 Freq: Status: Active Protocol: Document 09/24/20 11:15 DCW (Rec: 09/27/20 10:09 DCW [id number]) Current Condition History of Current Condition Onset Date Multi-year history Current Complaints Low back pain, History of Current Condition Pt is a 59 year old female with a long history of low back and hip pain. Pt was very recently being seen at this clinic for low back and hip pain, with some improvement, but overall continuing pain and stiffness, especially upon rising in the morning. Pt has had recent MRIs of her lumbar spine and hip, which show a number of different injuries, including degenerative changes , spinal stenosis, foraminal narrowing, anterolithesis, and a chronic/degenerative labral tear. Following these MRI results, she has decided that she will likely be undergoing surgerical intervention (lami- fusion L3-S1) within the next few months, and feels like her outcome will be the best if she works on core strengthening and stability prior to surgery. Pt notes that on the morning of 09/22/20, she received a steroid injection, notes her back is feeling pretty good. I had not realized how much it had been affecting me, sapping my energy. Additionally, pt has begun using CBD tincture to help her sleep, and CBD/THC mints for pain, which really seem to help. Prior Treatments and Tests Lumbar MRI: IMPRESSION: 1. Multilevel degenerative changes. 2. Multilevel spinal stenosis most severe at L3-4, L4-5 secondary to anterolithesis and facet/ ligamentum flavum hypertrophy. 3. Mutlilevel foraminal narrowing most severe at L3-4, L4-5, L5-S1 secondary to facet arthropathy and anterolithesis. per Olya Contreras M.D. on 07/30/2020 Hip MRI: IMPRESSION: -Anterosuperior labral tear which could be chronic/ degenerative. -Age-indeterminate mild hamstring origin tendinopathy. -Low-grade strain at the insertion of the left piriformis and obturator internus muscles. -Minimal left subtrochanteric bursal fluid/edema. Per Danny Mccullough M.D. on Future Testing and Treatments Planned Pt reports a follow-up with Dr Landeros on 10/08/20 for decision on surgery. PT-OP-C Subjective Start: 09/24/20 16:57 Freq: Status: Active Protocol: Document 12/23/20 16:48 DCW (Rec: 12/23/20 17:32 DCW [id number]) OP-PT Subjective Patient Comments Patient Comments Pt excited to report she has an appointment scheduled with the orthopedic surgeon next week to hopefully set up her back surgery. PT-OP-F Manual Assessment Start: 09/24/20 16:57 Freq: Status: Active Protocol: Document 11/25/20 14:30 DCW (Rec: 11/25/20 15:23 DCW [id number]) Manual Assessments Soft Tissue Assessment Soft Tissue Mobility Assessment Moderate tone and Tenderness to palpation 2/4: Pain with wincing bilateral QL, bilateral lumbar paraspinals, bilateral piriformis, bilateral psoas PT-OP-K Range of Motion Start: 09/24/20 16:57 Freq: Status: Active Protocol: Document 11/25/20 14:30 DCW (Rec: 11/25/20 15:23 DCW [id number]) Lumbar Spine Range of Motion Lumbar Spine Active Degrees Testing Position Standing Flexion 98 Extension 6 Lateral Flexion Left 48 Lateral Flexion Right 47 Comments Lateral flexion measured in cm from fingertips to floor PT-OP-L Special Tests Start: 09/24/20 16:57 Freq: Status: Active Protocol: Document 09/24/20 11:15 DCW (Rec: 09/27/20 10:16 DCW [id number]) Special Tests Lumbar Spine Special Tests A-P Shearing Test Results Negative Standing Flexion Test Results Negative Straight Leg Raise Test Results Negative Slump Test Results Negative Hip Special Tests Lateral SI Compression Test Results Negative Piriformis Test Results Negative RAMONA Test Results Bilateral ipsilateral anterior pain PT-OP-M Strength Start: 09/24/20 16:57 Freq: Status: Active Protocol: Document 11/25/20 14:30 DCW (Rec: 11/25/20 15:23 DCW [id number]) Trunk Strength Trunk Manual Muscle Testing Core Stabilization Improved ability to hold TrA contraction, MMT 4/5 PT-OP-Q Treatments Start: 09/24/20 16:57 Freq: Status: Active Protocol: Document 12/23/20 16:48 DCW (Rec: 12/23/20 17:32 DCW [id number]) Cardio Equipment Bicycle (Upright) Duration (Minutes) 5 Resistance 7 Seat Position 4 Gym Equipment Cable Column (Body Solid) Pallof Press Resistance 15# Reps/Time x10 bilaterally Shuttle Balance Red Details Staggered, lateral weight shift Therapeutic Ball Pelvic circles Exercise Details Pelvic circles, pelvic tilts Ball Size/Color Green - 65 cm Body Position Sitting Manual Therapy Treatment Soft Tissue Mobilization Piriformis Body Location B Piriformis Mobilization Type Sustained Pressure Intensity/Depth Deep Body Position Prone QL Body Location B QL Mobilization Type Sustained Pressure,Trigger Point Release Intensity/Depth Deep Body Position Prone Psoas Body Location B psoas and TFL Mobilization Type Cross-Friction,Sustained Pressure Intensity/Depth Deep Body Position Supine PT-OP-T Assessment and Plan Start: 09/24/20 16:57 Freq: Status: Active Protocol: Document 12/23/20 16:48 DCW (Rec: 12/23/20 17:32 DCW [id number]) Physical Therapy Assessment Impairments Impairments Activity Tolerance,Functional Mobility,Pain,ROM,Soft Tissue Mobility,Strength Goals Three Impairment Lumbar hypomobility results in no extension ROM through lumbar spine Coordinator Of Genetic Services Goal (LTG) Pt to demonstrate ability to extend lumbar spine 15? to show increased functional mobility LTG Duration 11/22/20 Two Impairment Core weakness results in decreased low back stability Coordinator Of Genetic Services Goal (LTG) Pt to present with improved core strength to 4+/5 to improve low back and hip stability in order to improve post-surgical outcomes. LTG Duration 11/22/20 One Impairment Pt does not have an appropriate HEP Short Term Goal (STG) Pt to be independent and compliant with an appropriate HEP STG Duration 10/25/20 Assessment Summary Assessment Pt showing reduced overall tone today vs last appointment , much more relaxed and mobile . Physical Therapy Plan Frequency and Duration Frequency of Treatment 2x/Week Duration of Treatment two months Plan of Care Start Date 11/25/20 Plan of Care End Date 01/25/21 Therapeutic Interventions Therapeutic Interventions Home Exercise Program,Joint Mobilizations,Manual Therapy, Neuromuscular Re-education, Patient/Caregiver Education, Self-Care/Home Management,Soft Tissue Mobilization, Therapeutic Activities, Therapeutic Exercises Modalities Cold Pack/Ice Massage,Electric Stimulation,Hot Packs, Ultrasound Next Visit Focus/Plan Next Note Type Treatment Note Next Visit Plan Core strengthening, hip strengthening, STM, flexibility/stretching
--- NOTE | 2020-12-29 15:17 | PT.OTN ---
Current Diagnoses Scoliosis, unspecified (12/29/20) Spondylolisthesis, lumbar region (12/29/20) Spinal stenosis, lumbar region with neurogenic claudication (12/29/20) Physical Therapy Treatment Note PT-OP-A Visit Information Start: 09/24/20 16:57 Freq: Status: Active Protocol: Document 12/29/20 14:36 DCW (Rec: 12/29/20 15:17 DCW [id number]) Out-Patient Physical Therapy Visit Information Visit Information Visit Type Treatment Note Visit Start Time 14:36 Visit Stop Time 15:15 Total Visit Minutes 39 Visit Number 19 Number of TISSUE PACKER Visits 0 Evaluation Information Evaluation Date 09/24/20 PT-OP-B Current Condition Start: 09/24/20 16:57 Freq: Status: Active Protocol: Document 09/24/20 11:15 DCW (Rec: 09/27/20 10:09 DCW [id number]) Current Condition History of Current Condition Onset Date Multi-year history Current Complaints Low back pain, History of Current Condition Pt is a 59 year old female with a long history of low back and hip pain. Pt was very recently being seen at this clinic for low back and hip pain, with some improvement, but overall continuing pain and stiffness, especially upon rising in the morning. Pt has had recent MRIs of her lumbar spine and hip, which show a number of different injuries, including degenerative changes , spinal stenosis, foraminal narrowing, anterolithesis, and a chronic/degenerative labral tear. Following these MRI results, she has decided that she will likely be undergoing surgerical intervention (lami- fusion L3-S1) within the next few months, and feels like her outcome will be the best if she works on core strengthening and stability prior to surgery. Pt notes that on the morning of 09/22/20, she received a steroid injection, notes her back is feeling pretty good. I had not realized how much it had been affecting me, sapping my energy. Additionally, pt has begun using CBD tincture to help her sleep, and CBD/THC mints for pain, which really seem to help. Prior Treatments and Tests Lumbar MRI: IMPRESSION: 1. Multilevel degenerative changes. 2. Multilevel spinal stenosis most severe at L3-4, L4-5 secondary to anterolithesis and facet/ ligamentum flavum hypertrophy. 3. Mutlilevel foraminal narrowing most severe at L3-4, L4-5, L5-S1 secondary to facet arthropathy and anterolithesis. per Olya Contreras M.D. on 07/30/2020 Hip MRI: IMPRESSION: -Anterosuperior labral tear which could be chronic/ degenerative. -Age-indeterminate mild hamstring origin tendinopathy. -Low-grade strain at the insertion of the left piriformis and obturator internus muscles. -Minimal left subtrochanteric bursal fluid/edema. Per Danny Mccullough M.D. on Future Testing and Treatments Planned Pt reports a follow-up with Dr Landeros on 10/08/20 for decision on surgery. PT-OP-C Subjective Start: 09/24/20 16:57 Freq: Status: Active Protocol: Document 12/29/20 14:36 DCW (Rec: 12/29/20 15:17 DCW [id number]) OP-PT Subjective Patient Comments Patient Comments Pt reports she saw the orthopedic surgeon earlier today, notes they are discussing surgery in early January. Admits she is very sore today. PT-OP-F Manual Assessment Start: 09/24/20 16:57 Freq: Status: Active Protocol: Document 11/25/20 14:30 DCW (Rec: 11/25/20 15:23 DCW [id number]) Manual Assessments Soft Tissue Assessment Soft Tissue Mobility Assessment Moderate tone and Tenderness to palpation 2/4: Pain with wincing bilateral QL, bilateral lumbar paraspinals, bilateral piriformis, bilateral psoas PT-OP-K Range of Motion Start: 09/24/20 16:57 Freq: Status: Active Protocol: Document 11/25/20 14:30 DCW (Rec: 11/25/20 15:23 DCW [id number]) Lumbar Spine Range of Motion Lumbar Spine Active Degrees Testing Position Standing Flexion 98 Extension 6 Lateral Flexion Left 48 Lateral Flexion Right 47 Comments Lateral flexion measured in cm from fingertips to floor PT-OP-L Special Tests Start: 09/24/20 16:57 Freq: Status: Active Protocol: Document 09/24/20 11:15 DCW (Rec: 09/27/20 10:16 DCW [id number]) Special Tests Lumbar Spine Special Tests A-P Shearing Test Results Negative Standing Flexion Test Results Negative Straight Leg Raise Test Results Negative Slump Test Results Negative Hip Special Tests Lateral SI Compression Test Results Negative Piriformis Test Results Negative RAMONA Test Results Bilateral ipsilateral anterior pain PT-OP-M Strength Start: 09/24/20 16:57 Freq: Status: Active Protocol: Document 11/25/20 14:30 DCW (Rec: 11/25/20 15:23 DCW [id number]) Trunk Strength Trunk Manual Muscle Testing Core Stabilization Improved ability to hold TrA contraction, MMT 4/5 PT-OP-Q Treatments Start: 09/24/20 16:57 Freq: Status: Active Protocol: Document 12/29/20 14:36 DCW (Rec: 12/29/20 15:17 DCW [id number]) Cardio Equipment Bicycle (Upright) Duration (Minutes) 5 Resistance 6 Seat Position 4 Gym Equipment Cable Column (Body Solid) Pallof Press Resistance 15# Reps/Time x10 bilaterally Therapeutic Ball Pelvic circles Exercise Details Pelvic circles, pelvic tilts Ball Size/Color Green - 65 cm Body Position Sitting Therapeutic Activity Therapeutic Activity 1 Name Log roll training Manual Therapy Treatment Soft Tissue Mobilization Piriformis Body Location B Piriformis Mobilization Type Sustained Pressure Intensity/Depth Deep Body Position Prone QL Body Location B QL Mobilization Type Sustained Pressure,Trigger Point Release Intensity/Depth Deep Body Position Prone Psoas Body Location B psoas and TFL Mobilization Type Cross-Friction,Sustained Pressure Intensity/Depth Deep Body Position Supine PT-OP-T Assessment and Plan Start: 09/24/20 16:57 Freq: Status: Active Protocol: Document 12/29/20 14:36 DCW (Rec: 12/29/20 15:17 DCW [id number]) Physical Therapy Assessment Impairments Impairments Activity Tolerance,Functional Mobility,Pain,ROM,Soft Tissue Mobility,Strength Goals Three Impairment Lumbar hypomobility results in no extension ROM through lumbar spine Mercerizer Goal (LTG) Pt to demonstrate ability to extend lumbar spine 15? to show increased functional mobility LTG Duration 11/22/20 Two Impairment Core weakness results in decreased low back stability Mercerizer Goal (LTG) Pt to present with improved core strength to 4+/5 to improve low back and hip stability in order to improve post-surgical outcomes. LTG Duration 11/22/20 One Impairment Pt does not have an appropriate HEP Short Term Goal (STG) Pt to be independent and compliant with an appropriate HEP STG Duration 10/25/20 Assessment Summary Assessment Practiced log roll for post-op mobility, pt did well and demonstrated good understanding of post-op restrictions Physical Therapy Plan Frequency and Duration Frequency of Treatment 2x/Week Duration of Treatment two months Plan of Care Start Date 11/25/20 Plan of Care End Date 01/25/21 Therapeutic Interventions Therapeutic Interventions Home Exercise Program,Joint Mobilizations,Manual Therapy, Neuromuscular Re-education, Patient/Caregiver Education, Self-Care/Home Management,Soft Tissue Mobilization, Therapeutic Activities, Therapeutic Exercises Modalities Cold Pack/Ice Massage,Electric Stimulation,Hot Packs, Ultrasound Next Visit Focus/Plan Next Note Type Treatment Note Next Visit Plan Core strengthening, hip strengthening, STM, flexibility/stretching
--- NOTE | 2021-01-05 15:16 | PT.OTN ---
Current Diagnoses Scoliosis, unspecified (01/05/21) Spondylolisthesis, lumbar region (01/05/21) Spinal stenosis, lumbar region with neurogenic claudication (01/05/21) Physical Therapy Treatment Note PT-OP-A Visit Information Start: 09/24/20 16:57 Freq: Status: Active Protocol: Document 01/05/21 14:34 DCW (Rec: 01/05/21 15:16 DCW [id number]) Out-Patient Physical Therapy Visit Information Visit Information Visit Type Treatment Note Visit Start Time 14:34 Visit Stop Time 15:15 Total Visit Minutes 41 Visit Number 20 Number of GIS CONSULTANT Visits 0 Evaluation Information Evaluation Date 09/24/20 PT-OP-B Current Condition Start: 09/24/20 16:57 Freq: Status: Active Protocol: Document 09/24/20 11:15 DCW (Rec: 09/27/20 10:09 DCW [id number]) Current Condition History of Current Condition Onset Date Multi-year history Current Complaints Low back pain, History of Current Condition Pt is a 59 year old female with a long history of low back and hip pain. Pt was very recently being seen at this clinic for low back and hip pain, with some improvement, but overall continuing pain and stiffness, especially upon rising in the morning. Pt has had recent MRIs of her lumbar spine and hip, which show a number of different injuries, including degenerative changes , spinal stenosis, foraminal narrowing, anterolithesis, and a chronic/degenerative labral tear. Following these MRI results, she has decided that she will likely be undergoing surgerical intervention (lami- fusion L3-S1) within the next few months, and feels like her outcome will be the best if she works on core strengthening and stability prior to surgery. Pt notes that on the morning of 09/22/20, she received a steroid injection, notes her back is feeling pretty good. I had not realized how much it had been affecting me, sapping my energy. Additionally, pt has begun using CBD tincture to help her sleep, and CBD/THC mints for pain, which really seem to help. Prior Treatments and Tests Lumbar MRI: IMPRESSION: 1. Multilevel degenerative changes. 2. Multilevel spinal stenosis most severe at L3-4, L4-5 secondary to anterolithesis and facet/ ligamentum flavum hypertrophy. 3. Mutlilevel foraminal narrowing most severe at L3-4, L4-5, L5-S1 secondary to facet arthropathy and anterolithesis. per Olya Contreras M.D. on 07/30/2020 Hip MRI: IMPRESSION: -Anterosuperior labral tear which could be chronic/ degenerative. -Age-indeterminate mild hamstring origin tendinopathy. -Low-grade strain at the insertion of the left piriformis and obturator internus muscles. -Minimal left subtrochanteric bursal fluid/edema. Per Danny Mccullough M.D. on Future Testing and Treatments Planned Pt reports a follow-up with Dr Landeros on 10/08/20 for decision on surgery. PT-OP-C Subjective Start: 09/24/20 16:57 Freq: Status: Active Protocol: Document 01/05/21 14:34 DCW (Rec: 01/05/21 15:16 DCW [id number]) OP-PT Subjective Patient Comments Patient Comments It's up and down all the time , but it is okay right now. PT-OP-F Manual Assessment Start: 09/24/20 16:57 Freq: Status: Active Protocol: Document 11/25/20 14:30 DCW (Rec: 11/25/20 15:23 DCW [id number]) Manual Assessments Soft Tissue Assessment Soft Tissue Mobility Assessment Moderate tone and Tenderness to palpation 2/4: Pain with wincing bilateral QL, bilateral lumbar paraspinals, bilateral piriformis, bilateral psoas PT-OP-K Range of Motion Start: 09/24/20 16:57 Freq: Status: Active Protocol: Document 11/25/20 14:30 DCW (Rec: 11/25/20 15:23 DCW [id number]) Lumbar Spine Range of Motion Lumbar Spine Active Degrees Testing Position Standing Flexion 98 Extension 6 Lateral Flexion Left 48 Lateral Flexion Right 47 Comments Lateral flexion measured in cm from fingertips to floor PT-OP-L Special Tests Start: 09/24/20 16:57 Freq: Status: Active Protocol: Document 09/24/20 11:15 DCW (Rec: 09/27/20 10:16 DCW [id number]) Special Tests Lumbar Spine Special Tests A-P Shearing Test Results Negative Standing Flexion Test Results Negative Straight Leg Raise Test Results Negative Slump Test Results Negative Hip Special Tests Lateral SI Compression Test Results Negative Piriformis Test Results Negative RAMONA Test Results Bilateral ipsilateral anterior pain PT-OP-M Strength Start: 09/24/20 16:57 Freq: Status: Active Protocol: Document 11/25/20 14:30 DCW (Rec: 11/25/20 15:23 DCW [id number]) Trunk Strength Trunk Manual Muscle Testing Core Stabilization Improved ability to hold TrA contraction, MMT 4/5 PT-OP-Q Treatments Start: 09/24/20 16:57 Freq: Status: Active Protocol: Document 01/05/21 14:34 DCW (Rec: 01/05/21 15:16 DCW [id number]) Cardio Equipment Elliptical Duration (Minutes) 5 Resistance 4 Gym Equipment Cable Column (Body Solid) Pallof Press Resistance 15# Reps/Time x10 bilaterally Shuttle Balance Red Details Staggered, lateral weight shift Therapeutic Ball Pelvic circles Exercise Details Pelvic circles, pelvic tilts Ball Size/Color Green - 65 cm Body Position Sitting Manual Therapy Treatment Soft Tissue Mobilization Piriformis Body Location B Piriformis Mobilization Type Sustained Pressure Intensity/Depth Deep Body Position Prone QL Body Location B QL Mobilization Type Sustained Pressure,Trigger Point Release Intensity/Depth Deep Body Position Prone Psoas Body Location B psoas and TFL Mobilization Type Cross-Friction,Sustained Pressure Intensity/Depth Deep Body Position Supine PT-OP-T Assessment and Plan Start: 09/24/20 16:57 Freq: Status: Active Protocol: Document 01/05/21 14:34 DCW (Rec: 01/05/21 15:16 DCW [id number]) Physical Therapy Assessment Impairments Impairments Activity Tolerance,Functional Mobility,Pain,ROM,Soft Tissue Mobility,Strength Goals Three Impairment Lumbar hypomobility results in no extension ROM through lumbar spine Foreign Collection Clerk Goal (LTG) Pt to demonstrate ability to extend lumbar spine 15? to show increased functional mobility LTG Duration 11/22/20 Two Impairment Core weakness results in decreased low back stability Foreign Collection Clerk Goal (LTG) Pt to present with improved core strength to 4+/5 to improve low back and hip stability in order to improve post-surgical outcomes. LTG Duration 11/22/20 One Impairment Pt does not have an appropriate HEP Short Term Goal (STG) Pt to be independent and compliant with an appropriate HEP STG Duration 10/25/20 Assessment Summary Assessment Pt continues to do well overall, getting ready for surgery, hoping to get past the pain and into the recovery as quickly as possible. Physical Therapy Plan Frequency and Duration Frequency of Treatment 2x/Week Duration of Treatment two months Plan of Care Start Date 11/25/20 Plan of Care End Date 01/25/21 Therapeutic Interventions Therapeutic Interventions Home Exercise Program,Joint Mobilizations,Manual Therapy, Neuromuscular Re-education, Patient/Caregiver Education, Self-Care/Home Management,Soft Tissue Mobilization, Therapeutic Activities, Therapeutic Exercises Modalities Cold Pack/Ice Massage,Electric Stimulation,Hot Packs, Ultrasound Next Visit Focus/Plan Next Note Type Treatment Note Next Visit Plan Core strengthening, hip strengthening, STM, flexibility/stretching
--- NOTE | 2021-01-07 11:15 | PT.OTN ---
Current Diagnoses Scoliosis, unspecified (01/07/21) Spondylolisthesis, lumbar region (01/07/21) Spinal stenosis, lumbar region with neurogenic claudication (01/07/21) Physical Therapy Treatment Note PT-OP-A Visit Information Start: 09/24/20 16:57 Freq: Status: Active Protocol: Document 01/07/21 10:35 DCW (Rec: 01/07/21 11:15 DCW [id number]) Out-Patient Physical Therapy Visit Information Visit Information Visit Type Treatment Note Visit Start Time 10:35 Visit Stop Time 11:15 Total Visit Minutes 40 Visit Number 21 Number of BUSINESS BANKER Visits 0 Evaluation Information Evaluation Date 09/24/20 PT-OP-B Current Condition Start: 09/24/20 16:57 Freq: Status: Active Protocol: Document 09/24/20 11:15 DCW (Rec: 09/27/20 10:09 DCW [id number]) Current Condition History of Current Condition Onset Date Multi-year history Current Complaints Low back pain, History of Current Condition Pt is a 59 year old female with a long history of low back and hip pain. Pt was very recently being seen at this clinic for low back and hip pain, with some improvement, but overall continuing pain and stiffness, especially upon rising in the morning. Pt has had recent MRIs of her lumbar spine and hip, which show a number of different injuries, including degenerative changes , spinal stenosis, foraminal narrowing, anterolithesis, and a chronic/degenerative labral tear. Following these MRI results, she has decided that she will likely be undergoing surgerical intervention (lami- fusion L3-S1) within the next few months, and feels like her outcome will be the best if she works on core strengthening and stability prior to surgery. Pt notes that on the morning of 09/22/20, she received a steroid injection, notes her back is feeling pretty good. I had not realized how much it had been affecting me, sapping my energy. Additionally, pt has begun using CBD tincture to help her sleep, and CBD/THC mints for pain, which really seem to help. Prior Treatments and Tests Lumbar MRI: IMPRESSION: 1. Multilevel degenerative changes. 2. Multilevel spinal stenosis most severe at L3-4, L4-5 secondary to anterolithesis and facet/ ligamentum flavum hypertrophy. 3. Mutlilevel foraminal narrowing most severe at L3-4, L4-5, L5-S1 secondary to facet arthropathy and anterolithesis. per Olya Contreras M.D. on 07/30/2020 Hip MRI: IMPRESSION: -Anterosuperior labral tear which could be chronic/ degenerative. -Age-indeterminate mild hamstring origin tendinopathy. -Low-grade strain at the insertion of the left piriformis and obturator internus muscles. -Minimal left subtrochanteric bursal fluid/edema. Per Danny Mccullough M.D. on Future Testing and Treatments Planned Pt reports a follow-up with Dr Landeros on 10/08/20 for decision on surgery. PT-OP-C Subjective Start: 09/24/20 16:57 Freq: Status: Active Protocol: Document 01/07/21 10:35 DCW (Rec: 01/07/21 11:15 DCW [id number]) OP-PT Subjective Patient Comments Patient Comments I am really sore right now. I did'nt sleep well last night, my meds haven't kicked in yet . PT-OP-F Manual Assessment Start: 09/24/20 16:57 Freq: Status: Active Protocol: Document 11/25/20 14:30 DCW (Rec: 11/25/20 15:23 DCW [id number]) Manual Assessments Soft Tissue Assessment Soft Tissue Mobility Assessment Moderate tone and Tenderness to palpation 2/4: Pain with wincing bilateral QL, bilateral lumbar paraspinals, bilateral piriformis, bilateral psoas PT-OP-K Range of Motion Start: 09/24/20 16:57 Freq: Status: Active Protocol: Document 11/25/20 14:30 DCW (Rec: 11/25/20 15:23 DCW [id number]) Lumbar Spine Range of Motion Lumbar Spine Active Degrees Testing Position Standing Flexion 98 Extension 6 Lateral Flexion Left 48 Lateral Flexion Right 47 Comments Lateral flexion measured in cm from fingertips to floor PT-OP-L Special Tests Start: 09/24/20 16:57 Freq: Status: Active Protocol: Document 09/24/20 11:15 DCW (Rec: 09/27/20 10:16 DCW [id number]) Special Tests Lumbar Spine Special Tests A-P Shearing Test Results Negative Standing Flexion Test Results Negative Straight Leg Raise Test Results Negative Slump Test Results Negative Hip Special Tests Lateral SI Compression Test Results Negative Piriformis Test Results Negative RAMONA Test Results Bilateral ipsilateral anterior pain PT-OP-M Strength Start: 09/24/20 16:57 Freq: Status: Active Protocol: Document 11/25/20 14:30 DCW (Rec: 11/25/20 15:23 DCW [id number]) Trunk Strength Trunk Manual Muscle Testing Core Stabilization Improved ability to hold TrA contraction, MMT 4/5 PT-OP-Q Treatments Start: 09/24/20 16:57 Freq: Status: Active Protocol: Document 01/07/21 10:35 DCW (Rec: 01/07/21 11:15 DCW [id number]) Cardio Equipment Bicycle (Upright) Duration (Minutes) 5 Resistance 6 Seat Position 4 Gym Equipment Cable Column (Body Solid) Pallof Press Resistance 10# Reps/Time x10 bilaterally Therapeutic Ball Pelvic circles Exercise Details Pelvic circles, pelvic tilts Ball Size/Color Green - 65 cm Body Position Sitting Manual Therapy Treatment Soft Tissue Mobilization Piriformis Body Location B Piriformis Mobilization Type Sustained Pressure Intensity/Depth Deep Body Position Prone QL Body Location B QL Mobilization Type Sustained Pressure,Trigger Point Release Intensity/Depth Deep Body Position Prone Psoas Body Location B psoas and TFL Mobilization Type Cross-Friction,Sustained Pressure Intensity/Depth Deep Body Position Supine Manual Traction hip distraction Details Capsule stretch Body Position Hooklying Comments /c belt PT-OP-T Assessment and Plan Start: 09/24/20 16:57 Freq: Status: Active Protocol: Document 01/07/21 10:35 DCW (Rec: 01/07/21 11:15 DCW [id number]) Physical Therapy Assessment Impairments Impairments Activity Tolerance,Functional Mobility,Pain,ROM,Soft Tissue Mobility,Strength Goals Three Impairment Lumbar hypomobility results in no extension ROM through lumbar spine Prison Goal (LTG) Pt to demonstrate ability to extend lumbar spine 15? to show increased functional mobility LTG Duration 01/14/21 Two Impairment Core weakness results in decreased low back stability Yard Warehouse Worker Goal (LTG) Pt to present with improved core strength to 4+/5 to improve low back and hip stability in order to improve post-surgical outcomes. LTG Duration 01/14/21 One Impairment Pt does not have an appropriate HEP Short Term Goal (STG) Pt to be independent and compliant with an appropriate HEP STG Duration 01/14/21 Assessment Summary Assessment Pt moving much better following treatment today, noted she felt substantially better than she did coming in today. Physical Therapy Plan Frequency and Duration Frequency of Treatment 2x/Week Duration of Treatment two months Plan of Care Start Date 11/25/20 Plan of Care End Date 01/25/21 Therapeutic Interventions Therapeutic Interventions Home Exercise Program,Joint Mobilizations,Manual Therapy, Neuromuscular Re-education, Patient/Caregiver Education, Self-Care/Home Management,Soft Tissue Mobilization, Therapeutic Activities, Therapeutic Exercises Modalities Cold Pack/Ice Massage,Electric Stimulation,Hot Packs, Ultrasound Next Visit Focus/Plan Next Note Type Treatment Note Next Visit Plan Core strengthening, hip strengthening, STM, flexibility/stretching
--- NOTE | 2021-01-12 15:16 | PT.OTN ---
Current Diagnoses Scoliosis, unspecified (01/12/21) Spondylolisthesis, lumbar region (01/12/21) Spinal stenosis, lumbar region with neurogenic claudication (01/12/21) Physical Therapy Treatment Note PT-OP-A Visit Information Start: 09/24/20 16:57 Freq: Status: Active Protocol: Document 01/12/21 14:33 DCW (Rec: 01/12/21 15:15 DCW [id number]) Out-Patient Physical Therapy Visit Information Visit Information Visit Type Treatment Note Visit Start Time 14:33 Visit Stop Time 15:15 Total Visit Minutes 42 Visit Number 22 Number of FIELD MECHANIC/SITE LEAD Visits 0 Evaluation Information Evaluation Date 09/24/20 PT-OP-B Current Condition Start: 09/24/20 16:57 Freq: Status: Active Protocol: Document 09/24/20 11:15 DCW (Rec: 09/27/20 10:09 DCW [id number]) Current Condition History of Current Condition Onset Date Multi-year history Current Complaints Low back pain, History of Current Condition Pt is a 59 year old female with a long history of low back and hip pain. Pt was very recently being seen at this clinic for low back and hip pain, with some improvement, but overall continuing pain and stiffness, especially upon rising in the morning. Pt has had recent MRIs of her lumbar spine and hip, which show a number of different injuries, including degenerative changes , spinal stenosis, foraminal narrowing, anterolithesis, and a chronic/degenerative labral tear. Following these MRI results, she has decided that she will likely be undergoing surgerical intervention (lami- fusion L3-S1) within the next few months, and feels like her outcome will be the best if she works on core strengthening and stability prior to surgery. Pt notes that on the morning of 09/22/20, she received a steroid injection, notes her back is feeling pretty good. I had not realized how much it had been affecting me, sapping my energy. Additionally, pt has begun using CBD tincture to help her sleep, and CBD/THC mints for pain, which really seem to help. Prior Treatments and Tests Lumbar MRI: IMPRESSION: 1. Multilevel degenerative changes. 2. Multilevel spinal stenosis most severe at L3-4, L4-5 secondary to anterolithesis and facet/ ligamentum flavum hypertrophy. 3. Mutlilevel foraminal narrowing most severe at L3-4, L4-5, L5-S1 secondary to facet arthropathy and anterolithesis. per Olya Contreras M.D. on 07/30/2020 Hip MRI: IMPRESSION: -Anterosuperior labral tear which could be chronic/ degenerative. -Age-indeterminate mild hamstring origin tendinopathy. -Low-grade strain at the insertion of the left piriformis and obturator internus muscles. -Minimal left subtrochanteric bursal fluid/edema. Per Danny Mccullough M.D. on Future Testing and Treatments Planned Pt reports a follow-up with Dr Landeros on 10/08/20 for decision on surgery. PT-OP-C Subjective Start: 09/24/20 16:57 Freq: Status: Active Protocol: Document 01/12/21 14:33 DCW (Rec: 01/12/21 15:15 DCW [id number]) OP-PT Subjective Patient Comments Patient Comments Pt feeling better than I was last week. PT-OP-F Manual Assessment Start: 09/24/20 16:57 Freq: Status: Active Protocol: Document 11/25/20 14:30 DCW (Rec: 11/25/20 15:23 DCW [id number]) Manual Assessments Soft Tissue Assessment Soft Tissue Mobility Assessment Moderate tone and Tenderness to palpation 2/4: Pain with wincing bilateral QL, bilateral lumbar paraspinals, bilateral piriformis, bilateral psoas PT-OP-K Range of Motion Start: 09/24/20 16:57 Freq: Status: Active Protocol: Document 11/25/20 14:30 DCW (Rec: 11/25/20 15:23 DCW [id number]) Lumbar Spine Range of Motion Lumbar Spine Active Degrees Testing Position Standing Flexion 98 Extension 6 Lateral Flexion Left 48 Lateral Flexion Right 47 Comments Lateral flexion measured in cm from fingertips to floor PT-OP-L Special Tests Start: 09/24/20 16:57 Freq: Status: Active Protocol: Document 09/24/20 11:15 DCW (Rec: 09/27/20 10:16 DCW [id number]) Special Tests Lumbar Spine Special Tests A-P Shearing Test Results Negative Standing Flexion Test Results Negative Straight Leg Raise Test Results Negative Slump Test Results Negative Hip Special Tests Lateral SI Compression Test Results Negative Piriformis Test Results Negative RAMONA Test Results Bilateral ipsilateral anterior pain PT-OP-M Strength Start: 09/24/20 16:57 Freq: Status: Active Protocol: Document 11/25/20 14:30 DCW (Rec: 11/25/20 15:23 DCW [id number]) Trunk Strength Trunk Manual Muscle Testing Core Stabilization Improved ability to hold TrA contraction, MMT 4/5 PT-OP-Q Treatments Start: 09/24/20 16:57 Freq: Status: Active Protocol: Document 01/12/21 14:33 DCW (Rec: 01/12/21 15:15 DCW [id number]) Cardio Equipment Bicycle (Upright) Duration (Minutes) 5 Resistance 7 Seat Position 4 Gym Equipment Cable Column (Body Solid) Pallof Press Resistance 15# Reps/Time x10 bilaterally Shuttle Balance Red Details Staggered, lateral weight shift Manual Therapy Treatment Soft Tissue Mobilization Piriformis Body Location B Piriformis Mobilization Type Sustained Pressure Intensity/Depth Deep Body Position Prone QL Body Location B QL Mobilization Type Sustained Pressure,Trigger Point Release Intensity/Depth Deep Body Position Prone Psoas Body Location B psoas and TFL Mobilization Type Cross-Friction,Sustained Pressure Intensity/Depth Deep Body Position Supine Manual Traction hip distraction Details Capsule stretch Body Position Hooklying Comments /c belt PT-OP-T Assessment and Plan Start: 09/24/20 16:57 Freq: Status: Active Protocol: Document 01/12/21 14:33 DCW (Rec: 01/12/21 15:15 DCW [id number]) Physical Therapy Assessment Impairments Impairments Activity Tolerance,Functional Mobility,Pain,ROM,Soft Tissue Mobility,Strength Goals Three Impairment Lumbar hypomobility results in no extension ROM through lumbar spine Transportation Driver Goal (LTG) Pt to demonstrate ability to extend lumbar spine 15? to show increased functional mobility LTG Duration 01/14/21 Two Impairment Core weakness results in decreased low back stability Alf Goal (LTG) Pt to present with improved core strength to 4+/5 to improve low back and hip stability in order to improve post-surgical outcomes. LTG Duration 01/14/21 One Impairment Pt does not have an appropriate HEP Short Term Goal (STG) Pt to be independent and compliant with an appropriate HEP STG Duration 01/14/21 Assessment Summary Assessment Pt will likely be discharged, as she hopefully has upcoming lumbar surgery, however would like to hold off on official discharge until she actually gets scheduled, likely next week. Physical Therapy Plan Frequency and Duration Frequency of Treatment 2x/Week Duration of Treatment two months Plan of Care Start Date 11/25/20 Plan of Care End Date 01/25/21 Therapeutic Interventions Therapeutic Interventions Home Exercise Program,Joint Mobilizations,Manual Therapy, Neuromuscular Re-education, Patient/Caregiver Education, Self-Care/Home Management,Soft Tissue Mobilization, Therapeutic Activities, Therapeutic Exercises Modalities Cold Pack/Ice Massage,Electric Stimulation,Hot Packs, Ultrasound Next Visit Focus/Plan Next Note Type Treatment Note Next Visit Plan Core strengthening, hip strengthening, STM, flexibility/stretching
--- NOTE | 2021-02-17 15:25 | PT.OPDS ---
Current Diagnoses Scoliosis, unspecified (01/12/21) Spondylolisthesis, lumbar region (01/12/21) Spinal stenosis, lumbar region with neurogenic claudication (01/12/21) Visit Care Team Role Provider Type Melanie Kebede MD Family Provider Physician Primary Care Provider Specialty: Family Practice Address: [address] [place] [address], [facility] [place], [address] Email: [email or web address] Isaías Landeros MD Attending Provider Physician Referring Provider Specialty: Orthopedic Surgery Address: [address] [place] [address], [place], [address] Email: [email or web address] Visit Number Visit Number 22 Discharge Summary PT-OP-B Current Condition Start: 09/24/20 16:57 Freq: Status: Active Protocol: Document 09/24/20 11:15 DCW (Rec: 09/27/20 10:09 DCW [id number]) Current Condition History of Current Condition Onset Date Multi-year history Current Complaints Low back pain, History of Current Condition Pt is a 59 year old female with a long history of low back and hip pain. Pt was very recently being seen at this clinic for low back and hip pain, with some improvement, but overall continuing pain and stiffness, especially upon rising in the morning. Pt has had recent MRIs of her lumbar spine and hip, which show a number of different injuries, including degenerative changes , spinal stenosis, foraminal narrowing, anterolithesis, and a chronic/degenerative labral tear. Following these MRI results, she has decided that she will likely be undergoing surgerical intervention (lami- fusion L3-S1) within the next few months, and feels like her outcome will be the best if she works on core strengthening and stability prior to surgery. Pt notes that on the morning of 09/22/20, she received a steroid injection, notes her back is feeling pretty good. I had not realized how much it had been affecting me, sapping my energy. Additionally, pt has begun using CBD tincture to help her sleep, and CBD/THC mints for pain, which really seem to help. Prior Treatments and Tests Lumbar MRI: IMPRESSION: 1. Multilevel degenerative changes. 2. Multilevel spinal stenosis most severe at L3-4, L4-5 secondary to anterolithesis and facet/ ligamentum flavum hypertrophy. 3. Mutlilevel foraminal narrowing most severe at L3-4, L4-5, L5-S1 secondary to facet arthropathy and anterolithesis. per Olya Contreras M.D. on 07/30/2020 Hip MRI: IMPRESSION: -Anterosuperior labral tear which could be chronic/ degenerative. -Age-indeterminate mild hamstring origin tendinopathy. -Low-grade strain at the insertion of the left piriformis and obturator internus muscles. -Minimal left subtrochanteric bursal fluid/edema. Per Danny Mccullough M.D. on Future Testing and Treatments Planned Pt reports a follow-up with Dr Landeros on 10/08/20 for decision on surgery. PT-OP-C Subjective Start: 09/24/20 16:57 Freq: Status: Active Protocol: Document 01/12/21 14:33 DCW (Rec: 01/12/21 15:15 DCW [id number]) OP-PT Subjective Patient Comments Patient Comments Pt feeling better than I was last week. PT-OP-F Manual Assessment Start: 09/24/20 16:57 Freq: Status: Active Protocol: Document 11/25/20 14:30 DCW (Rec: 11/25/20 15:23 DCW [id number]) Manual Assessments Soft Tissue Assessment Soft Tissue Mobility Assessment Moderate tone and Tenderness to palpation 2/4: Pain with wincing bilateral QL, bilateral lumbar paraspinals, bilateral piriformis, bilateral psoas PT-OP-K Range of Motion Start: 09/24/20 16:57 Freq: Status: Active Protocol: Document 11/25/20 14:30 DCW (Rec: 11/25/20 15:23 DCW [id number]) Lumbar Spine Range of Motion Lumbar Spine Active Degrees Testing Position Standing Flexion 98 Extension 6 Lateral Flexion Left 48 Lateral Flexion Right 47 Comments Lateral flexion measured in cm from fingertips to floor PT-OP-L Special Tests Start: 09/24/20 16:57 Freq: Status: Active Protocol: Document 09/24/20 11:15 DCW (Rec: 09/27/20 10:16 DCW [id number]) Special Tests Lumbar Spine Special Tests A-P Shearing Test Results Negative Standing Flexion Test Results Negative Straight Leg Raise Test Results Negative Slump Test Results Negative Hip Special Tests Lateral SI Compression Test Results Negative Piriformis Test Results Negative RAMONA Test Results Bilateral ipsilateral anterior pain PT-OP-M Strength Start: 09/24/20 16:57 Freq: Status: Active Protocol: Document 11/25/20 14:30 DCW (Rec: 11/25/20 15:23 DCW [id number]) Trunk Strength Trunk Manual Muscle Testing Core Stabilization Improved ability to hold TrA contraction, MMT 4/5 PT-OP-T Assessment and Plan Start: 09/24/20 16:57 Freq: Status: Active Protocol: Document 02/17/21 15:23 DCW (Rec: 02/17/21 15:24 DCW [id number]) Physical Therapy Assessment Assessment Summary Assessment Pt has not called to confirm she has been scheduled for surgery, however her plan was to continue therapy until surgery, and she has not scheduled any follow-up visits either. Pt has not been seen in more than a month, and will be discharged at this time. Pt will require a new referral to restart therapy following surgery. Physical Therapy Plan Discharge Physical Therapy Discharge Reasons No Longer Attending PT Next Visit Focus/Plan Next Note Type Discharge Summary
== END 2021-02-18 07:58 | disposition home or self-care (01) ==
LOC: PHYS 14:30
PROVIDERS: Family Provider Student in an Organized Health Care Education/Training Program; PCP Student in an Organized Health Care Education/Training Program; Referring Provider Orthopaedic Surgery; Visit Provider Orthopaedic Surgery
DX: M48.062 Spinal stenosis, lumbar region with neurogenic claudication (principal); M41.9 Scoliosis, unspecified; M43.16 Spondylolisthesis, lumbar region
CPT/HCPCS: 97110; 97112; 97140; 97161; 97530

== ENCOUNTER 2021-06-03 10:30 | Outpatient (RCR) | payer OTHER, SELFPAY ==
--- NOTE | 2021-03-23 10:05 | PT.OIE ---
Current Diagnoses Spinal stenosis, lumbar region with neurogenic claudication (03/23/21) Visit Care Team Role Provider Type Melanie Kebede MD Family Provider Physician Primary Care Provider Specialty: Family Practice Address: [address] [place] [address], [facility], [place], [address] Email: [email or web address] Isaías Landeros MD Attending Provider Physician Referring Provider Specialty: Orthopedic Surgery Address: [address] [place] [address], [place], [address] Email: Physical Therapy Initial Evaluation PT-OP-A Visit Information Start: 03/23/21 09:43 Freq: Status: Active Protocol: Document 03/23/21 09:44 OF (Rec: 03/23/21 10:05 OF [id number]) Out-Patient Physical Therapy Visit Information Visit Information Visit Type Initial Evaluation Visit Note S/p l2-s1 fusion, laminectomy l4-5 Visit Start Time 09:00 Visit Stop Time 09:45 Total Visit Minutes 45 Visit Number 1 Evaluation Information Evaluation Date 03/23/21 Precautions Precautions spinal precautions lifted PT-OP-B Current Condition Start: 03/23/21 09:43 Freq: Status: Active Protocol: Document 03/23/21 09:44 OF (Rec: 03/23/21 10:05 OF [id number]) Current Condition History of Current Condition Onset Date 02/11/21 History of Current Condition pt has had chronic LBP, recently underwent lumbar fusion. Prior Treatments and Tests prior PT for lumbar/hip pain, OT for wrist pain Developmental History Developmental History pt states she had braces to address inversion/supination of Bilat feet when she was young Treatment Goals Patient/Caregiver Goals get back to driving 2-3hrs without stopping Prior Functional Status Baseline Function- ADL's Independent Baseline Function- Mobility Independent Baseline Function- Other Pt was I within community until last year. PT-OP-C Subjective Start: 03/23/21 09:43 Freq: Status: Active Protocol: Document 03/23/21 09:44 OF (Rec: 03/23/21 10:05 OF [id number]) OP-PT Subjective Patient Comments Patient Comments Pt states she has stopped narcotic pain medications Patient Reported Progress Improving Patient Questionnaires Oswestry Low Back Index Oswestry Impairment 40 to 59% Impaired (Score 40- 59) OP-PT Pain Assessment Pain Assessment Grid Paper Pain Assessment Grid Completed Yes Location lumbar Intensity 2 Scale Used Numeric (0 - 10) Description Aching Frequency Frequent Pain Aggravating Factors Changing Position,ADL's, Activity,Walking Pain Alleviating Factors Sitting PT-OP-G Mobility & Gait Start: 03/23/21 09:43 Freq: Status: Active Protocol: Document 03/23/21 09:44 OF (Rec: 03/23/21 10:05 OF [id number]) OP Mobility Evaluation Bed Mobility Rolling I with log rolling Functional Movements Other Functional Movements Pt has difficulty reaching to floor to pickler helper objects OP Gait Assessment Gait Gait Assistance Required: Independent Distance (Feet) 150 Assistive Devices Assistive Device None Gait Deviations General Gait Pattern Decreased Stride Length Factors Limiting Gait Function Factors Limiting Gait Function Decreased Strength PT-OP-K Range of Motion Start: 03/23/21 09:43 Freq: Status: Active Protocol: Document 03/23/21 09:44 OF (Rec: 03/23/21 10:05 OF [id number]) Lumbar Spine Range of Motion Lumbar Spine Active Testing Position Standing Comments Pt demonstrates normal AROM standing PT-OP-M Strength Start: 03/23/21 09:43 Freq: Status: Active Protocol: Document 03/23/21 09:44 OF (Rec: 03/23/21 10:05 OF [id number]) Hip Strength Hip Manual Muscle Testing L Flexion (L2) 3+ Fair+ Extension (S1) 3+ Fair+ Abduction 3+ Fair+ R Flexion (L2) 3+ Fair+ Extension (S1) 3+ Fair+ Abduction 3+ Fair+ Knee Strength Knee Manual Muscle Testing L Flexion (S2) 3+ Fair+ Extension (L3) 3+ Fair+ R Flexion (S2) 3+ Fair+ Extension (L3) 3+ Fair+ Ankle/Foot Strength Ankle and Foot Manual Muscle Testing L Dorsiflexion (L4) 3+ Fair+ Plantarflexion (S1) 3+ Fair+ R Dorsiflexion (L4) 3+ Fair+ Plantarflexion (S1) 3+ Fair+ PT-OP-Q Treatments Start: 03/23/21 09:43 Freq: Status: Active Protocol: Document 03/23/21 09:44 OF (Rec: 03/23/21 10:05 OF [id number]) Gym Equipment Therapeutic Ball Bridging Exercise Details RE educated upon post chain recruitment Reps/Duration 3x5 Comments cues for glute recruitment Therapeutic Exercises Supine Exercises abdominal breathing Reps/Minutes [id number] anjana stretch Side bilateral Reps/Minutes [id number] Self-Care/Home Management Treatment Education Patient Education Body Mechanics,Home Exercise Program,Pain Management PT-OP-T Assessment and Plan Start: 03/23/21 09:43 Freq: Status: Active Protocol: Document 03/23/21 09:44 OF (Rec: 03/23/21 10:05 OF [id number]) Physical Therapy Assessment Rehab Potential Rehabilitation Potential Excellent Evaluation Complexity Number of Personal Factors/Comorbidities 1-2 Number of Body Systems Impaired 1-2 Impairments Impairments Activity Tolerance,Functional Activities,Gait,Pain,Strength Goals 3 Impairment difficulty walking >150ft Short Term Goal (STG) pt will AMB 500ft without AD I STG Duration 2 weeks Chcf Goal (LTG) Pt will AMB >1500ft I to return to PLOF LTG Duration 6weeks 2 Impairment LE weakness Short Term Goal (STG) Pt will improve LE strength to complete 6 sit to stands in 30sec without UE STG Duration 2 weeks Beef Lugger Goal (LTG) Pt will improve LE strength to complete 12 sit to stands in 30sec without UE to demonstrate improved community mobility. 1 Impairment Pt has no HEP Short Term Goal (STG) Pt will perform basic HEP for LE strenghtening, and postural control STG Duration 2weeks [facility] Goal (LTG) Pt will be I with advanced HEP including pain management LTG Duration 6weeks Progress Towards Goals Progress Towards Goals Progressing Toward Goals Assessment Summary Assessment Lanny is a 60 yo female with chronic back pain, L2-s1 fusion and L4-5 laminectomy. She has previously had 2 disc replacements in her neck. She was recently cleared from post -op restrictions by surgeon. 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 She has LE weakness , poor endurance, limited postural control and difficulty walking >150ft. She will require skilled therapy to improve LE strength, increase endurance with AMB, restore I within community and return to work. Physical Therapy Plan Frequency and Duration Frequency of Treatment 1-2x/week Duration of Treatment 6weeks Plan of Care Start Date 03/23/21 Plan of Care End Date 05/04/21 Therapeutic Interventions Therapeutic Interventions Gait Training,Home Exercise Program,Joint Mobilizations, Manual Therapy,Neuromuscular Re-education,Self-Care/Home Management,Therapeutic Activities,Therapeutic Exercises Next Visit Focus/Plan Next Note Type Treatment Note Next Visit Plan assess HEP response for bridging, breathing, anjana stretch. Progress if well tolerated to bike/stepper/ treadmill, increase glute strengthening and core strengthening
--- NOTE | 2021-03-23 10:06 | PT.OPPOC ---
Physical, Occupational & Speech Therapy At [facility] Current Diagnoses Spinal stenosis, lumbar region with neurogenic claudication (03/23/21) Visit Care Team Role Provider Type Melanie Kebede MD Family Provider Physician Primary Care Provider Specialty: Family Practice Address: [address] [place] [address], [facility] [place], [address] Email: [email or web address] Isaías Landeros MD Attending Provider Physician Referring Provider Specialty: Orthopedic Surgery Address: [address] [place] [address], [place], [address] Email: Plan Of Care PT-OP-T Assessment and Plan Start: 03/23/21 09:43 Freq: Status: Active Protocol: Document 03/23/21 09:44 OF (Rec: 03/23/21 10:05 OF [id number]) Physical Therapy Assessment Rehab Potential Rehabilitation Potential Excellent Evaluation Complexity Number of Personal Factors/Comorbidities 1-2 Number of Body Systems Impaired 1-2 Impairments Impairments Activity Tolerance,Functional Activities,Gait,Pain,Strength Goals 3 Impairment difficulty walking >150ft Short Term Goal (STG) pt will AMB 500ft without AD I STG Duration 2 weeks Jail Goal (LTG) Pt will AMB >1500ft I to return to PLOF LTG Duration 6weeks 2 Impairment LE weakness Short Term Goal (STG) Pt will improve LE strength to complete 6 sit to stands in 30sec without UE STG Duration 2 weeks Stock Taker Goal (LTG) Pt will improve LE strength to complete 12 sit to stands in 30sec without UE to demonstrate improved community mobility. 1 Impairment Pt has no HEP Short Term Goal (STG) Pt will perform basic HEP for LE strenghtening, and postural control STG Duration 2weeks Jail Goal (LTG) Pt will be I with advanced HEP including pain management LTG Duration 6weeks Progress Towards Goals Progress Towards Goals Progressing Toward Goals Assessment Summary Assessment Lanny is a 60 yo female with chronic back pain, L2-s1 fusion and L4-5 laminectomy. She has previously had 2 disc replacements in her neck. She was recently cleared from post -op restrictions by surgeon. 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 She has LE weakness , poor endurance, limited postural control and difficulty walking >150ft. She will require skilled therapy to improve LE strength, increase endurance with AMB, restore I within community and return to work. Physical Therapy Plan Frequency and Duration Frequency of Treatment 1-2x/week Duration of Treatment 6weeks Plan of Care Start Date 03/23/21 Plan of Care End Date 05/04/21 Therapeutic Interventions Therapeutic Interventions Gait Training,Home Exercise Program,Joint Mobilizations, Manual Therapy,Neuromuscular Re-education,Self-Care/Home Management,Therapeutic Activities,Therapeutic Exercises Next Visit Focus/Plan Next Note Type Treatment Note Next Visit Plan assess HEP response for bridging, breathing, anjana stretch. Progress if well tolerated to bike/stepper/ treadmill, increase glute strengthening and core strengthening Plan of Care Dates Plan of Care Start Date 03/23/21 Plan of Care End Date 05/04/21 Electronically Signed by: Alli Malone, PT 03/23/21 1006 Please Sign and Return: I have reviewed this Plan of Care and certify that the skilled therapy services above are required to meet the patient?s needs. Physician Signature Date Printed Name and Credentials Clinical Instructor Signature Printed Name and Credentials
--- NOTE | 2021-03-24 10:50 | PT.OTN ---
Current Diagnoses Spinal stenosis, lumbar region with neurogenic claudication (03/24/21) Physical Therapy Treatment Note PT-OP-A Visit Information Start: 03/23/21 09:43 Freq: Status: Active Protocol: Document 03/24/21 10:43 OF (Rec: 03/24/21 10:50 OF [id number]) Out-Patient Physical Therapy Visit Information Visit Information Visit Type Treatment Note Visit Start Time 08:17 Visit Stop Time 09:00 Total Visit Minutes 43 Visit Number 2 Evaluation Information Evaluation Date 03/23/21 Precautions Precautions spinal precautions lifted PT-OP-B Current Condition Start: 03/23/21 09:43 Freq: Status: Active Protocol: Document 03/23/21 09:44 OF (Rec: 03/23/21 10:05 OF [id number]) Current Condition History of Current Condition Onset Date 02/11/21 History of Current Condition pt has had chronic LBP, recently underwent lumbar fusion. Prior Treatments and Tests prior PT for lumbar/hip pain, OT for wrist pain Developmental History Developmental History pt states she had braces to address inversion/supination of Bilat feet when she was young Treatment Goals Patient/Caregiver Goals get back to driving 2-3hrs without stopping Prior Functional Status Baseline Function- ADL's Independent Baseline Function- Mobility Independent Baseline Function- Other Pt was I within community until last year. PT-OP-C Subjective Start: 03/23/21 09:43 Freq: Status: Active Protocol: Document 03/24/21 10:43 OF (Rec: 03/24/21 10:50 OF [id number]) OP-PT Subjective Patient Comments Patient Comments pt states she feels good after initial HEP yesterday Patient Reported Progress Improving OP-PT Pain Assessment Pain Assessment Grid Paper Pain Assessment Grid Completed No: pt states pain is 2/10 PT-OP-G Mobility & Gait Start: 03/23/21 09:43 Freq: Status: Active Protocol: Document 03/23/21 09:44 OF (Rec: 03/23/21 10:05 OF [id number]) OP Mobility Evaluation Bed Mobility Rolling I with log rolling Functional Movements Other Functional Movements Pt has difficulty reaching to floor to sisal picker objects OP Gait Assessment Gait Gait Assistance Required: Independent Distance (Feet) 150 Assistive Devices Assistive Device None Gait Deviations General Gait Pattern Decreased Stride Length Factors Limiting Gait Function Factors Limiting Gait Function Decreased Strength PT-OP-K Range of Motion Start: 03/23/21 09:43 Freq: Status: Active Protocol: Document 03/23/21 09:44 OF (Rec: 03/23/21 10:05 OF [id number]) Lumbar Spine Range of Motion Lumbar Spine Active Testing Position Standing Comments Pt demonstrates normal AROM standing PT-OP-M Strength Start: 03/23/21 09:43 Freq: Status: Active Protocol: Document 03/23/21 09:44 OF (Rec: 03/23/21 10:05 OF [id number]) Hip Strength Hip Manual Muscle Testing L Flexion (L2) 3+ Fair+ Extension (S1) 3+ Fair+ Abduction 3+ Fair+ R Flexion (L2) 3+ Fair+ Extension (S1) 3+ Fair+ Abduction 3+ Fair+ Knee Strength Knee Manual Muscle Testing L Flexion (S2) 3+ Fair+ Extension (L3) 3+ Fair+ R Flexion (S2) 3+ Fair+ Extension (L3) 3+ Fair+ Ankle/Foot Strength Ankle and Foot Manual Muscle Testing L Dorsiflexion (L4) 3+ Fair+ Plantarflexion (S1) 3+ Fair+ R Dorsiflexion (L4) 3+ Fair+ Plantarflexion (S1) 3+ Fair+ PT-OP-Q Treatments Start: 03/23/21 09:43 Freq: Status: Active Protocol: Document 03/24/21 10:43 OF (Rec: 03/24/21 10:50 OF [id number]) Cardio Equipment Treadmill Duration (Minutes) 10 Speed 2.1 Other cues for UE support with AMB, equal step length Gym Equipment Therapeutic Ball Bridging Exercise Details RE educated upon post chain recruitment Reps/Duration 3x5 Comments cues for heel drive and lifting toes to improve posterior chain recruitment Therapeutic Exercises Supine Exercises abdominal breathing Reps/Minutes [id number] anjana stretch Side bilateral Reps/Minutes [id number] Comments cues for LE placement Standing Exercises heel/toe lifts Side bilateral Reps/Minutes 3x10 Comments demo for eccentric control for improved gastroc strengthening minisquats Side bilateral Reps/Minutes 3x5 Comments cues for extending hips, using glutes, elevated seat ~24 Self-Care/Home Management Treatment Education Patient Education Body Mechanics,Home Exercise Program,Pain Management PT-OP-T Assessment and Plan Start: 03/23/21 09:43 Freq: Status: Active Protocol: Document 03/24/21 10:43 OF (Rec: 03/24/21 10:50 OF [id number]) Physical Therapy Assessment Rehab Potential Rehabilitation Potential Good Evaluation Complexity Number of Personal Factors/Comorbidities 1-2 Number of Body Systems Impaired 1-2 Impairments Impairments Gait,Pain,Strength Goals 3 Impairment difficulty walking >150ft Short Term Goal (STG) pt will AMB 500ft without AD I STG Duration 2 weeks Irrigation Manager Goal (LTG) Pt will AMB >1500ft I to return to PLOF LTG Duration 6weeks 2 Impairment LE weakness Short Term Goal (STG) Pt will improve LE strength to complete 6 sit to stands in 30sec without UE STG Duration 2 weeks Snf Goal (LTG) Pt will improve LE strength to complete 12 sit to stands in 30sec without UE to demonstrate improved community mobility. 1 Impairment Pt has no HEP Short Term Goal (STG) Pt will perform basic HEP for LE strenghtening, and postural control STG Duration 2weeks Snf Goal (LTG) Pt will be I with advanced HEP including pain management LTG Duration 6weeks Progress Towards Goals Progress Towards Goals Progressing Toward Goals Assessment Summary Assessment pt has good HEP awareness, improves endurance with exercise today vs evaluation. She improves staiblity with bridging and requires demo for anjana stretch set up. Physical Therapy Plan Next Visit Focus/Plan Next Note Type Treatment Note Next Visit Plan re assess HEP performance, progress core/glute/LE strengthening
--- NOTE | 2021-04-05 12:37 | PT.OTN ---
Current Diagnoses Spinal stenosis, lumbar region with neurogenic claudication (04/05/21) Physical Therapy Treatment Note PT-OP-A Visit Information Start: 03/23/21 09:43 Freq: Status: Active Protocol: Document 04/05/21 11:15 OF (Rec: 04/05/21 12:37 OF [id number]) Out-Patient Physical Therapy Visit Information Visit Information Visit Type Treatment Note Visit Start Time 10:35 Visit Stop Time 11:15 Total Visit Minutes 40 Visit Number 3 Evaluation Information Evaluation Date 03/23/21 Precautions Precautions spinal precautions lifted PT-OP-B Current Condition Start: 03/23/21 09:43 Freq: Status: Active Protocol: Document 03/23/21 09:44 OF (Rec: 03/23/21 10:05 OF [id number]) Current Condition History of Current Condition Onset Date 02/11/21 History of Current Condition pt has had chronic LBP, recently underwent lumbar fusion. Prior Treatments and Tests prior PT for lumbar/hip pain, OT for wrist pain Developmental History Developmental History pt states she had braces to address inversion/supination of Bilat feet when she was young Treatment Goals Patient/Caregiver Goals get back to driving 2-3hrs without stopping Prior Functional Status Baseline Function- ADL's Independent Baseline Function- Mobility Independent Baseline Function- Other Pt was I within community until last year. PT-OP-C Subjective Start: 03/23/21 09:43 Freq: Status: Active Protocol: Document 04/05/21 11:15 OF (Rec: 04/05/21 12:37 OF [id number]) OP-PT Subjective Patient Comments Patient Comments pt reports HEP as instructed Patient Reported Progress Improving OP-PT Pain Assessment Location lumbar Pain Location Details 2/10 Scale Used Numeric (0 - 10) Description Aching Frequency Occasional Pain Aggravating Factors ADL's,Sitting Pain Alleviating Factors Lying Supine PT-OP-G Mobility & Gait Start: 03/23/21 09:43 Freq: Status: Active Protocol: Document 03/23/21 09:44 OF (Rec: 03/23/21 10:05 OF [id number]) OP Mobility Evaluation Bed Mobility Rolling I with log rolling Functional Movements Other Functional Movements 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 OP Gait Assessment Gait Gait Assistance Required: Independent Distance (Feet) 150 Assistive Devices Assistive Device None Gait Deviations General Gait Pattern Decreased Stride Length Factors Limiting Gait Function Factors Limiting Gait Function Decreased Strength PT-OP-K Range of Motion Start: 03/23/21 09:43 Freq: Status: Active Protocol: Document 03/23/21 09:44 OF (Rec: 03/23/21 10:05 OF [id number]) Lumbar Spine Range of Motion Lumbar Spine Active Testing Position Standing Comments Pt demonstrates normal AROM standing PT-OP-M Strength Start: 03/23/21 09:43 Freq: Status: Active Protocol: Document 03/23/21 09:44 OF (Rec: 03/23/21 10:05 OF [id number]) Hip Strength Hip Manual Muscle Testing L Flexion (L2) 3+ Fair+ Extension (S1) 3+ Fair+ Abduction 3+ Fair+ R Flexion (L2) 3+ Fair+ Extension (S1) 3+ Fair+ Abduction 3+ Fair+ Knee Strength Knee Manual Muscle Testing L Flexion (S2) 3+ Fair+ Extension (L3) 3+ Fair+ R Flexion (S2) 3+ Fair+ Extension (L3) 3+ Fair+ Ankle/Foot Strength Ankle and Foot Manual Muscle Testing L Dorsiflexion (L4) 3+ Fair+ Plantarflexion (S1) 3+ Fair+ R Dorsiflexion (L4) 3+ Fair+ Plantarflexion (S1) 3+ Fair+ PT-OP-Q Treatments Start: 03/23/21 09:43 Freq: Status: Active Protocol: Document 04/05/21 11:15 OF (Rec: 04/05/21 12:37 OF [id number]) Cardio Equipment Elliptical Duration (Minutes) 5 Resistance 5 Treadmill Duration (Minutes) 10 Speed 2.1 Gym Equipment Shuttle Recovery bilateral squat Resistance 50 Shuttle Recovery Platform Stable Reps/Time 2x15 reps Therapeutic Ball Bridging Exercise Details RE educated upon post chain recruitment Reps/Duration 3x5 Comments cues for heel drive and lifting toes to improve posterior chain recruitment Therapeutic Exercises Supine Exercises abdominal breathing Reps/Minutes [id number] Comments combine with bridge anjana stretch Side bilateral Reps/Minutes [id number] Comments cues for LE placement Standing Exercises rows Side bilateral Resistance TB3 Reps/Minutes 2x10 Comments Cues for scapular retraction, maintaining spinal extension heel/toe lifts Side bilateral Reps/Minutes 3x10 Comments demo for eccentric control for improved gastroc strengthening minisquats Side bilateral Reps/Minutes 3x5 Comments cues for extending hips, improved eccentric control Self-Care/Home Management Treatment Education Patient Education Body Mechanics,Fall Risk PT-OP-T Assessment and Plan Start: 03/23/21 09:43 Freq: Status: Active Protocol: Document 04/05/21 11:15 OF (Rec: 04/05/21 12:37 OF [id number]) Physical Therapy Assessment Rehab Potential Rehabilitation Potential Excellent Evaluation Complexity Number of Personal Factors/Comorbidities 1-2 Number of Body Systems Impaired 1-2 Clinical Presentation at Evaluation Stable Impairments Impairments Coordination,Pain,Strength Goals 3 Impairment difficulty walking >150ft Short Term Goal (STG) pt will AMB 500ft without AD I STG Duration 2 weeks [facility] Goal (LTG) Pt will AMB >1500ft I to return to PLOF LTG Duration 6weeks 2 Impairment LE weakness Short Term Goal (STG) Pt will improve LE strength to complete 6 sit to stands in 30sec without UE STG Duration 2 weeks Cullet Washer Goal (LTG) Pt will improve LE strength to complete 12 sit to stands in 30sec without UE to demonstrate improved community mobility. 1 Impairment Pt has no HEP Short Term Goal (STG) Pt will perform basic HEP for LE strenghtening, and postural control STG Duration 2weeks Cullet Washer Goal (LTG) Pt will be I with advanced HEP including pain management LTG Duration 6weeks Progress Towards Goals Progress Towards Goals Progressing Toward Goals Assessment Summary Assessment Lanny has been performing her HEP as instructed. She is agreeable to increased volume and adding new exercises including elliptical, leg press, rows. She has improved endurance for driving and IADL Physical Therapy Plan Frequency and Duration Frequency of Treatment 1-2x/week Duration of Treatment 6weeks Plan of Care Start Date 03/23/21 Plan of Care End Date 05/04/21 Next Visit Focus/Plan Next Note Type Treatment Note Next Visit Plan assess response to elliptical and leg press for HEP. Progress LE strengthening and stability
--- NOTE | 2021-04-08 16:52 | PT.OTN ---
Current Diagnoses Spinal stenosis, lumbar region with neurogenic claudication (04/08/21) Physical Therapy Treatment Note PT-OP-A Visit Information Start: 03/23/21 09:43 Freq: Status: Active Protocol: Document 04/08/21 16:03 DCW (Rec: 04/08/21 16:52 DCW [id number]) Out-Patient Physical Therapy Visit Information Visit Information Visit Type Treatment Note Visit Start Time 16:03 Visit Stop Time 16:45 Total Visit Minutes 42 Visit Number 4 Evaluation Information Evaluation Date 03/23/21 Precautions Precautions spinal precautions lifted PT-OP-B Current Condition Start: 03/23/21 09:43 Freq: Status: Active Protocol: Document 03/23/21 09:44 OF (Rec: 03/23/21 10:05 OF [id number]) Current Condition History of Current Condition Onset Date 02/11/21 History of Current Condition pt has had chronic LBP, recently underwent lumbar fusion. Prior Treatments and Tests prior PT for lumbar/hip pain, OT for wrist pain Developmental History Developmental History pt states she had braces to address inversion/supination of Bilat feet when she was young Treatment Goals Patient/Caregiver Goals get back to driving 2-3hrs without stopping Prior Functional Status Baseline Function- ADL's Independent Baseline Function- Mobility Independent Baseline Function- Other Pt was I within community until last year. PT-OP-C Subjective Start: 03/23/21 09:43 Freq: Status: Active Protocol: Document 04/08/21 16:03 DCW (Rec: 04/08/21 16:52 DCW [id number]) OP-PT Subjective Patient Comments Patient Comments I feel better than I've felt in years. Pt did note spasm in posterior thoracic following UE exercises earlier this week. 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 to floor to tow picker objects OP Gait Assessment Gait Gait Assistance Required: Independent Distance (Feet) 150 Assistive Devices Assistive Device None Gait Deviations General Gait Pattern Decreased Stride Length Factors Limiting Gait Function Factors Limiting Gait Function Decreased Strength PT-OP-K Range of Motion Start: 03/23/21 09:43 Freq: Status: Active Protocol: Document 03/23/21 09:44 OF (Rec: 03/23/21 10:05 OF [id number]) Lumbar Spine Range of Motion Lumbar Spine Active Testing Position Standing Comments Pt demonstrates normal AROM standing PT-OP-M Strength Start: 03/23/21 09:43 Freq: Status: Active Protocol: Document 03/23/21 09:44 OF (Rec: 03/23/21 10:05 OF [id number]) Hip Strength Hip Manual Muscle Testing L Flexion (L2) 3+ Fair+ Extension (S1) 3+ Fair+ Abduction 3+ Fair+ R Flexion (L2) 3+ Fair+ Extension (S1) 3+ Fair+ Abduction 3+ Fair+ Knee Strength Knee Manual Muscle Testing L Flexion (S2) 3+ Fair+ Extension (L3) 3+ Fair+ R Flexion (S2) 3+ Fair+ Extension (L3) 3+ Fair+ Ankle/Foot Strength Ankle and Foot Manual Muscle Testing L Dorsiflexion (L4) 3+ Fair+ Plantarflexion (S1) 3+ Fair+ R Dorsiflexion (L4) 3+ Fair+ Plantarflexion (S1) 3+ Fair+ PT-OP-Q Treatments Start: 03/23/21 09:43 Freq: Status: Active Protocol: Document 04/08/21 16:03 DCW (Rec: 04/08/21 16:52 DCW [id number]) Cardio Equipment Elliptical Duration (Minutes) 5 Resistance 5 Gym Equipment Cable Column (Body Solid) Pallof Press Resistance 10# Reps/Time x10 bilaterally Shuttle Recovery bilateral squat Resistance 50 Shuttle Recovery Platform Stable Reps/Time 2x15 reps Therapeutic Exercises Standing Exercises heel/toe lifts Side bilateral Reps/Minutes 3x10 Comments demo for eccentric control for improved gastroc strengthening minisquats Side bilateral Reps/Minutes 3x5 Comments cues for extending hips, improved eccentric control Manual Therapy Treatment Soft Tissue Mobilization Thoracic Body Location Rhomboids, parascapulars Mobilization Type Strumming,Sustained Pressure, Trigger Point Release Body Position Supine PT-OP-T Assessment and Plan Start: 03/23/21 09:43 Freq: Status: Active Protocol: Document 04/08/21 16:03 DCW (Rec: 04/08/21 16:52 DCW [id number]) Physical Therapy Assessment Impairments Impairments Coordination,Pain,Strength Goals 3 Impairment difficulty walking >150ft Short Term Goal (STG) pt will AMB 500ft without AD I STG Duration 2 weeks Residential Goal (LTG) Pt will AMB >1500ft I to return to PLOF LTG Duration 6weeks 2 Impairment LE weakness Short Term Goal (STG) Pt will improve LE strength to complete 6 sit to stands in 30sec without UE STG Duration 2 weeks Residential Goal (LTG) Pt will improve LE strength to complete 12 sit to stands in 30sec without UE to demonstrate improved community mobility. 1 Impairment Pt has no HEP Short Term Goal (STG) Pt will perform basic HEP for LE strenghtening, and postural control STG Duration 2weeks Neck Band Setter Goal (LTG) Pt will be I with advanced HEP including pain management LTG Duration 6weeks Assessment Summary Assessment Worked some today on decreasing recent thoracic muscle spasm, pt moving much better overall, showing great progression in functional mobility since evaluation Physical Therapy Plan Frequency and Duration Frequency of Treatment 1-2x/week Duration of Treatment 6weeks Plan of Care Start Date 03/23/21 Plan of Care End Date 05/04/21 Therapeutic Interventions Therapeutic Interventions Gait Training,Home Exercise Program,Joint Mobilizations, Manual Therapy,Neuromuscular Re-education,Self-Care/Home Management,Therapeutic Activities,Therapeutic Exercises Next Visit Focus/Plan Next Note Type Treatment Note Next Visit Plan assess HEP response for bridging, breathing, anjana stretch. Progress if well tolerated to bike/stepper/ treadmill, increase glute strengthening and core strengthening
--- NOTE | 2021-04-12 10:32 | PT.OTN ---
Current Diagnoses Spinal stenosis, lumbar region with neurogenic claudication (04/12/21) Physical Therapy Treatment Note PT-OP-A Visit Information Start: 03/23/21 09:43 Freq: Status: Active Protocol: Document 04/12/21 09:46 SP (Rec: 04/12/21 12:07 SP [id number]) Out-Patient Physical Therapy Visit Information Visit Information Visit Type Treatment Note Visit Start Time 09:46 Visit Stop Time 10:32 Total Visit Minutes 46 Visit Number 5 Number of MOLD MAKING SUPERVISOR Visits 1 Evaluation Information Evaluation Date 03/23/21 Precautions Precautions spinal precautions lifted PT-OP-B Current Condition Start: 03/23/21 09:43 Freq: Status: Active Protocol: Document 03/23/21 09:44 OF (Rec: 03/23/21 10:05 OF [id number]) Current Condition History of Current Condition Onset Date 02/11/21 History of Current Condition pt has had chronic LBP, recently underwent lumbar fusion. Prior Treatments and Tests prior PT for lumbar/hip pain, OT for wrist pain Developmental History Developmental History pt states she had braces to address inversion/supination of Bilat feet when she was young Treatment Goals Patient/Caregiver Goals get back to driving 2-3hrs without stopping Prior Functional Status Baseline Function- ADL's Independent Baseline Function- Mobility Independent Baseline Function- Other Pt was I within community until last year. PT-OP-C Subjective Start: 03/23/21 09:43 Freq: Status: Active Protocol: Document 04/12/21 09:46 SP (Rec: 04/12/21 12:07 SP [id number]) OP-PT Subjective Patient Comments Patient Comments Low back feeling good today, Fri last tx shlds rock solid and uncomfortable but better at home bed than work pull out has to use few days/ wk. Pt stated having to stop x1 on drive to work for mobility/ flexibilty w/ good results. 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 OP Gait Assessment Gait Gait Assistance Required: Independent Distance (Feet) 150 Assistive Devices Assistive Device None Gait Deviations General Gait Pattern Decreased Stride Length Factors Limiting Gait Function Factors Limiting Gait Function Decreased Strength PT-OP-K Range of Motion Start: 03/23/21 09:43 Freq: Status: Active Protocol: Document 03/23/21 09:44 OF (Rec: 03/23/21 10:05 OF [id number]) Lumbar Spine Range of Motion Lumbar Spine Active Testing Position Standing Comments Pt demonstrates normal AROM standing PT-OP-M Strength Start: 03/23/21 09:43 Freq: Status: Active Protocol: Document 03/23/21 09:44 OF (Rec: 03/23/21 10:05 OF [id number]) Hip Strength Hip Manual Muscle Testing L Flexion (L2) 3+ Fair+ Extension (S1) 3+ Fair+ Abduction 3+ Fair+ R Flexion (L2) 3+ Fair+ Extension (S1) 3+ Fair+ Abduction 3+ Fair+ Knee Strength Knee Manual Muscle Testing L Flexion (S2) 3+ Fair+ Extension (L3) 3+ Fair+ R Flexion (S2) 3+ Fair+ Extension (L3) 3+ Fair+ Ankle/Foot Strength Ankle and Foot Manual Muscle Testing L Dorsiflexion (L4) 3+ Fair+ Plantarflexion (S1) 3+ Fair+ R Dorsiflexion (L4) 3+ Fair+ Plantarflexion (S1) 3+ Fair+ PT-OP-Q Treatments Start: 03/23/21 09:43 Freq: Status: Active Protocol: Document 04/12/21 09:46 SP (Rec: 04/12/21 12:07 SP [id number]) Cardio Equipment Elliptical Duration (Minutes) 5 Resistance 5 Other 0.25 miles- good neutral spinea alignment Therapeutic Exercises Supine Exercises november Supine Exercise Name level 2 alternate LE into table top then segmental lowering Side bilateral Equipment Used added to HEP Reps/Minutes 10 reps leading each LE Comments good TA fac, pain free anjana stretch Supine Exercise Name Gave standing alternative on work days not have elevated table. Side bilateral Reps/Minutes [id number] Comments cues for LE placement, good more broad stretch Sidelying Exercises open book Sidelying Exercise Name hand on head, head with arm ( mid thoracis ROM) Side bilateral Resistance AROM Equipment Used added to HEP Reps/Minutes x5 reps, can add breath at end feeel Comments good gentle pain free range- TS mob, cued no UT recruit Standing Exercises rows Standing Exercise Name reviewed HEP Side bilateral Resistance TB3 Reps/Minutes 2x10 Comments Cues for scapular retraction, maintaining spinal extension minisquats Side bilateral Equipment Used tap to chair Reps/Minutes 3x5 Comments cues for extending hips, improved eccentric control, PPT decr LS ext Other Exercises self STMs Other Exercise Name theracane and racquetball on wall Equipment Used added to HEP Comments good feedback response-UT, lev scap, interscap, glut, ES hip flexor stretch Other Exercise Name standing lunge find more stretch isolation vs 1/2 kneel w/ cushion Side bilateral Equipment Used added to HEP Reps/Minutes 30 x2 Comments good response prox quad, TFL stretch- PT-OP-T Assessment and Plan Start: 03/23/21 09:43 Freq: Status: Active Protocol: Document 04/12/21 09:46 SP (Rec: 04/12/21 12:07 SP [id number]) Physical Therapy Assessment Goals 3 Impairment difficulty walking >150ft Short Term Goal (STG) pt will AMB 500ft without AD I STG Duration 2 weeks [facility] Goal (LTG) Pt will AMB >1500ft I to return to PLOF LTG Duration 6weeks 2 Impairment LE weakness Short Term Goal (STG) Pt will improve LE strength to complete 6 sit to stands in 30sec without UE STG Duration 2 weeks Assistant Department Manager Goal (LTG) Pt will improve LE strength to complete 12 sit to stands in 30sec without UE to demonstrate improved community mobility. 1 Impairment Pt has no HEP Short Term Goal (STG) Pt will perform basic HEP for LE strenghtening, and postural control STG Duration 2weeks Assistant Department Manager Goal (LTG) Pt will be I with advanced HEP including pain management LTG Duration 6weeks Assessment Summary Assessment Reviewed HEP w/ alternative to anjana stretch, standing for work loccation performance with good feedback. Initiated open book for TS mob and self STMs to UT, interscap to allow , CS and TS mobility for allowance of funtional rotation to look over shoulder while driving with good awareness of PPT neutral, not stress LS fusion with good feedback results pain free. Pt required cuing for PPT neutral to decrease LS ext during mini squat, tapping to chair assisted alignment. Physical Therapy Plan Frequency and Duration Frequency of Treatment 1-2x/week Duration of Treatment 6weeks Plan of Care Start Date 03/23/21 Plan of Care End Date 05/04/21 Therapeutic Interventions Therapeutic Interventions Gait Training,Home Exercise Program,Joint Mobilizations, Manual Therapy,Neuromuscular Re-education,Self-Care/Home Management,Therapeutic Activities,Therapeutic Exercises Next Visit Focus/Plan Next Note Type Treatment Note Next Visit Plan Stretching, self STMs, TA HEP , open book last tx. POC: Progress if well tolerated to bike/stepper/ treadmill, increase glute strengthening and core strengthening
--- NOTE | 2021-04-14 09:03 | PT.OTN ---
Current Diagnoses Spinal stenosis, lumbar region with neurogenic claudication (04/14/21) Physical Therapy Treatment Note PT-OP-A Visit Information Start: 03/23/21 09:43 Freq: Status: Active Protocol: Document 04/14/21 08:11 HH (Rec: 04/14/21 09:03 [id number]) Out-Patient Physical Therapy Visit Information Visit Information Visit Type Treatment Note Visit Start Time 08:17 Visit Stop Time 09:00 Total Visit Minutes 43 Visit Number 6 Number of AGILE TESTER Visits 0 PT-OP-B Current Condition Start: 03/23/21 09:43 Freq: Status: Active Protocol: Document 03/23/21 09:44 OF (Rec: 03/23/21 10:05 OF [id number]) Current Condition History of Current Condition Onset Date 02/11/21 History of Current Condition pt has had chronic LBP, recently underwent lumbar fusion. Prior Treatments and Tests prior PT for lumbar/hip pain, OT for wrist pain Developmental History Developmental History pt states she had braces to address inversion/supination of Bilat feet when she was young Treatment Goals Patient/Caregiver Goals get back to driving 2-3hrs without stopping Prior Functional Status Baseline Function- ADL's Independent Baseline Function- Mobility Independent Baseline Function- Other Pt was I within community until last year. PT-OP-C Subjective Start: 03/23/21 09:43 Freq: Status: Active Protocol: Document 04/14/21 08:11 HH (Rec: 04/14/21 09:03 [id number]) OP-PT Subjective Patient Comments Patient Comments I ordered a theracane. Angeline been doing all the new HEP. However, i have been having significant stiffness across my upper back and shoulders. Patient Reported Progress Improving PT-OP-G Mobility & Gait Start: 03/23/21 09:43 Freq: Status: Active Protocol: Document 03/23/21 09:44 OF (Rec: 03/23/21 10:05 OF [id number]) OP Mobility Evaluation Bed Mobility Rolling I with log rolling Functional Movements Other Functional Movements Pt has difficulty reaching to floor to crop picker objects OP Gait Assessment Gait Gait Assistance Required: Independent Distance (Feet) 150 Assistive Devices Assistive Device None Gait Deviations General Gait Pattern Decreased Stride Length Factors Limiting Gait Function Factors Limiting Gait Function Decreased Strength PT-OP-K Range of Motion Start: 03/23/21 09:43 Freq: Status: Active Protocol: Document 03/23/21 09:44 OF (Rec: 03/23/21 10:05 OF [id number]) Lumbar Spine Range of Motion Lumbar Spine Active Testing Position Standing Comments Pt demonstrates normal AROM standing PT-OP-M Strength Start: 03/23/21 09:43 Freq: Status: Active Protocol: Document 03/23/21 09:44 OF (Rec: 03/23/21 10:05 OF [id number]) Hip Strength Hip Manual Muscle Testing L Flexion (L2) 3+ Fair+ Extension (S1) 3+ Fair+ Abduction 3+ Fair+ R Flexion (L2) 3+ Fair+ Extension (S1) 3+ Fair+ Abduction 3+ Fair+ Knee Strength Knee Manual Muscle Testing L Flexion (S2) 3+ Fair+ Extension (L3) 3+ Fair+ R Flexion (S2) 3+ Fair+ Extension (L3) 3+ Fair+ Ankle/Foot Strength Ankle and Foot Manual Muscle Testing L Dorsiflexion (L4) 3+ Fair+ Plantarflexion (S1) 3+ Fair+ R Dorsiflexion (L4) 3+ Fair+ Plantarflexion (S1) 3+ Fair+ PT-OP-Q Treatments Start: 03/23/21 09:43 Freq: Status: Active Protocol: Document 04/14/21 08:11 HH (Rec: 04/14/21 09:03 HH [id number]) Cardio Equipment Elliptical Duration (Minutes) 5 Resistance 5 Other 0.25 miles- good neutral spinea alignment Therapeutic Exercises Supine Exercises shoulder flexion Equipment Used PVC Reps/Minutes 10 x2 Comments flexion with inhalation and exhale on the way down abdominal breathing Supine Exercise Name resistance on rib cage Reps/Minutes 4 mins Sidelying Exercises open book Sidelying Exercise Name hand on head, head with arm ( mid thoracis ROM) Side bilateral Resistance AROM Equipment Used added to HEP Reps/Minutes x5 reps, can add breath at end feeel Comments good gentle pain free range- TS mob, cued no [place] recruit Standing Exercises rows Standing Exercise Name reviewed HEP Side bilateral Resistance TB3 Reps/Minutes 2x10 Comments Cues for scapular retraction, maintaining spinal extension minisquats Standing Exercise Name hip hinge Side bilateral Equipment Used tap to chair Reps/Minutes 3x5 Comments cues for extending hips, improved eccentric control, PPT decr LS ext Other Exercises hip flexor stretch Other Exercise Name standing lunge find more stretch isolation vs 1/2 kneel w/ cushion Side bilateral Equipment Used added to HEP Reps/Minutes 30 x2 Comments good response prox quad, TFL stretch- Manual Therapy Treatment Soft Tissue Mobilization Thoracic Body Location Rhomboids, parascapulars Mobilization Type Strumming,Sustained Pressure, Trigger Point Release Body Position Supine PT-OP-T Assessment and Plan Start: 03/23/21 09:43 Freq: Status: Active Protocol: Document 04/14/21 08:11 (Rec: 04/14/21 09:03 [id number]) Physical Therapy Assessment Goals 3 Impairment difficulty walking >150ft Short Term Goal (STG) pt will AMB 500ft without AD I STG Duration 2 weeks [employer] Goal (LTG) Pt will AMB >1500ft I to return to PLOF LTG Duration 6weeks 2 Impairment LE weakness Short Term Goal (STG) Pt will improve LE strength to complete 6 sit to stands in 30sec without UE STG Duration 2 weeks [facility] [employer] Goal (LTG) Pt will improve LE strength to complete 12 sit to stands in 30sec without UE to demonstrate improved community mobility. 1 Impairment Pt has no HEP Short Term Goal (STG) Pt will perform basic HEP for LE strenghtening, and postural control STG Duration 2weeks Jail Goal (LTG) Pt will be I with advanced HEP including pain management LTG Duration 6weeks Assessment Summary Assessment Reviewed HEP with her today and pt is doing well with them . This session focused on diaphragmatic breathing with UE movements, and hip hinge pattern Physical Therapy Plan Frequency and Duration Frequency of Treatment 1-2x/week Duration of Treatment 6weeks Plan of Care Start Date 03/23/21 Plan of Care End Date 05/04/21 Therapeutic Interventions Therapeutic Interventions Gait Training,Home Exercise Program,Joint Mobilizations, Manual Therapy,Neuromuscular Re-education,Self-Care/Home Management,Therapeutic Activities,Therapeutic Exercises Next Visit Focus/Plan Next Note Type Treatment Note Next Visit Plan Stretching, self STMs, TA HEP , open book last tx. POC: Progress if well tolerated to bike/stepper/ treadmill, increase glute strengthening and core strengthening
--- NOTE | 2021-04-20 12:56 | PT.OTN ---
Current Diagnoses Spinal stenosis, lumbar region with neurogenic claudication (04/20/21) Physical Therapy Treatment Note PT-OP-A Visit Information Start: 03/23/21 09:43 Freq: Status: Active Protocol: Document 04/20/21 09:30 MA (Rec: 04/20/21 10:18 MA [id number]) Out-Patient Physical Therapy Visit Information Visit Information Visit Type Treatment Note Visit Start Time 09:30 Visit Stop Time 10:15 Total Visit Minutes 45 Visit Number 7 Number of CARDIAC MONITOR Visits 1 Precautions Precautions spinal precautions lifted PT-OP-B Current Condition Start: 03/23/21 09:43 Freq: Status: Active Protocol: Document 03/23/21 09:44 OF (Rec: 03/23/21 10:05 OF [id number]) Current Condition History of Current Condition Onset Date 02/11/21 History of Current Condition pt has had chronic LBP, recently underwent lumbar fusion. Prior Treatments and Tests prior PT for lumbar/hip pain, OT for wrist pain Developmental History Developmental History pt states she had braces to address inversion/supination of Bilat feet when she was young Treatment Goals Patient/Caregiver Goals get back to driving 2-3hrs without stopping Prior Functional Status Baseline Function- ADL's Independent Baseline Function- Mobility Independent Baseline Function- Other Pt was I within community until last year. PT-OP-C Subjective Start: 03/23/21 09:43 Freq: Status: Active Protocol: Document 04/20/21 09:30 MA (Rec: 04/20/21 10:18 MA [id number]) OP-PT Subjective Patient Comments Patient Comments Pt states she has been having more soreness in upper back/ shoulders still but her LB is feeling pretty good since getting the titanium put in PT-OP-G Mobility & Gait Start: 03/23/21 09:43 Freq: Status: Active Protocol: Document 03/23/21 09:44 OF (Rec: 03/23/21 10:05 OF [id number]) OP Mobility Evaluation Bed Mobility Rolling I with log rolling Functional Movements Other Functional Movements Pt has difficulty reaching to floor to hop picker objects OP Gait Assessment Gait Gait Assistance Required: Independent Distance (Feet) 150 Assistive Devices Assistive Device None Gait Deviations General Gait Pattern Decreased Stride Length Factors Limiting Gait Function Factors Limiting Gait Function Decreased Strength PT-OP-K Range of Motion Start: 03/23/21 09:43 Freq: Status: Active Protocol: Document 03/23/21 09:44 OF (Rec: 03/23/21 10:05 OF [id number]) Lumbar Spine Range of Motion Lumbar Spine Active Testing Position Standing Comments Pt demonstrates normal AROM standing PT-OP-M Strength Start: 03/23/21 09:43 Freq: Status: Active Protocol: Document 03/23/21 09:44 OF (Rec: 03/23/21 10:05 OF [id number]) Hip Strength Hip Manual Muscle Testing L Flexion (L2) 3+ Fair+ Extension (S1) 3+ Fair+ Abduction 3+ Fair+ R Flexion (L2) 3+ Fair+ Extension (S1) 3+ Fair+ Abduction 3+ Fair+ Knee Strength Knee Manual Muscle Testing L Flexion (S2) 3+ Fair+ Extension (L3) 3+ Fair+ R Flexion (S2) 3+ Fair+ Extension (L3) 3+ Fair+ Ankle/Foot Strength Ankle and Foot Manual Muscle Testing L Dorsiflexion (L4) 3+ Fair+ Plantarflexion (S1) 3+ Fair+ R Dorsiflexion (L4) 3+ Fair+ Plantarflexion (S1) 3+ Fair+ PT-OP-Q Treatments Start: 03/23/21 09:43 Freq: Status: Active Protocol: Document 04/20/21 09:30 MA (Rec: 04/20/21 10:18 MA [id number]) Cardio Equipment Elliptical Duration (Minutes) 5 Resistance 5 Other 0.25 miles- good neutral spinea alignment Therapeutic Exercises Supine Exercises core march Side bilateral Equipment Used added to HEP Reps/Minutes 10 reps leading each LE Comments good TA fac, pain free anjana stretch Side bilateral Reps/Minutes 2' Comments cues for LE placement, good more broad stretch Sidelying Exercises open book Sidelying Exercise Name hand on head, head with arm ( mid thoracis ROM) Side bilateral Resistance AROM Equipment Used added to HEP Reps/Minutes x10 reps, can add breath at end feeel Comments good gentle pain free range- TS mob, cued no [place] recruit Standing Exercises Hip Ext Side bilateral Equipment Used lvl 1 TB Reps/Minutes 2x10 minisquats Standing Exercise Name hip hinge Side bilateral Equipment Used tap to chair Reps/Minutes 10x Comments cues for extending hips, improved eccentric control, PPT decr LS ext Manual Therapy Treatment Soft Tissue Mobilization Thoracic Body Location Rhomboids, parascapulars Mobilization Type Strumming,Sustained Pressure, Trigger Point Release Body Position Supine Psoas Body Location B psoas and TFL Mobilization Type Cross-Friction,Sustained Pressure Intensity/Depth Deep Body Position Supine PT-OP-T Assessment and Plan Start: 03/23/21 09:43 Freq: Status: Active Protocol: Document 04/20/21 09:30 MA (Rec: 04/20/21 10:18 MA [id number]) Physical Therapy Assessment Goals 3 Impairment difficulty walking >150ft Short Term Goal (STG) pt will AMB 500ft without AD I STG Duration 2 weeks Shelter Goal (LTG) Pt will AMB >1500ft I to return to PLOF LTG Duration 6weeks 2 Impairment LE weakness Short Term Goal (STG) Pt will improve LE strength to complete 6 sit to stands in 30sec without UE STG Duration 2 weeks Shelter Goal (LTG) Pt will improve LE strength to complete 12 sit to stands in 30sec without UE to demonstrate improved community mobility. 1 Impairment Pt has no HEP Short Term Goal (STG) Pt will perform basic HEP for LE strenghtening, and postural control STG Duration 2weeks [employer] Goal (LTG) Pt will be I with advanced HEP including pain management LTG Duration 6weeks Assessment Summary Assessment Pt is doing well with breathing throughout exercises . Added in hip extension and standing hip flexor stretch to exercises today. Will continue to work on hip ext next session for possible addition to HEP. Physical Therapy Plan Frequency and Duration Frequency of Treatment 1-2x/week Duration of Treatment 6weeks Plan of Care Start Date 03/23/21 Plan of Care End Date 05/04/21 Therapeutic Interventions Therapeutic Interventions Gait Training,Home Exercise Program,Joint Mobilizations, Manual Therapy,Neuromuscular Re-education,Self-Care/Home Management,Therapeutic Activities,Therapeutic Exercises Next Visit Focus/Plan Next Note Type Treatment Note Next Visit Plan Continue standing hip extension Stretching, self STMs, TA HEP , open book last tx. POC: Progress if well tolerated to bike/stepper/ treadmill, increase glute strengthening and core strengthening
--- NOTE | 2021-04-22 11:22 | PT.OTN ---
Addendum entered and electronically signed by Jenn Nix, GOPI 04/22/21 11:31: Pt due for PN and updated POC soon, POC exp 05/04/21. Original Note: Current Diagnoses Spinal stenosis, lumbar region with neurogenic claudication (04/22/21) Physical Therapy Treatment Note PT-OP-A Visit Information Start: 03/23/21 09:43 Freq: Status: Active Protocol: Document 04/22/21 10:38 SP (Rec: 04/22/21 11:30 SP [id number]) Out-Patient Physical Therapy Visit Information Visit Information Visit Type Treatment Note Visit Note Pt 8 min late for appt Visit Start Time 10:38 Visit Stop Time 11:22 Total Visit Minutes 44 Visit Number 8 Number of SPINE SPECIALIST Visits 2 Evaluation Information Evaluation Date 03/23/21 Precautions Precautions spinal precautions lifted PT-OP-B Current Condition Start: 03/23/21 09:43 Freq: Status: Active Protocol: Document 03/23/21 09:44 OF (Rec: 03/23/21 10:05 OF [id number]) Current Condition History of Current Condition Onset Date 02/11/21 History of Current Condition pt has had chronic LBP, recently underwent lumbar fusion. Prior Treatments and Tests prior PT for lumbar/hip pain, OT for wrist pain Developmental History Developmental History pt states she had braces to address inversion/supination of Bilat feet when she was young Treatment Goals Patient/Caregiver Goals get back to driving 2-3hrs without stopping Prior Functional Status Baseline Function- ADL's Independent Baseline Function- Mobility Independent Baseline Function- Other Pt was I within community until last year. PT-OP-C Subjective Start: 03/23/21 09:43 Freq: Status: Active Protocol: Document 04/22/21 10:38 SP (Rec: 04/22/21 11:30 SP [id number]) OP-PT Subjective Patient Comments Patient Comments Pt stated not sleeping well LB discomfort and anterior hip tightness and not getting sufficient sleep even with CBD tinkture, tried to go without gabapentin last night and found self waking up so transferred to couch to see if slept better. Pt reported was able to use elliptical 20 min yesterday afternoon increase from 10 min. Pt stated better breath support lately and noted decrease tension on vocal cords and trying to be aware of marionette postural alignment during HEP. Patient Reported Progress Improving PT-OP-G Mobility & Gait Start: 03/23/21 09:43 Freq: Status: Active Protocol: Document 03/23/21 09:44 OF (Rec: 03/23/21 10:05 OF [id number]) OP Mobility Evaluation Bed Mobility Rolling I with log rolling Functional Movements Other Functional Movements Pt has difficulty reaching to floor to draft roller picker objects OP Gait Assessment Gait Gait Assistance Required: Independent Distance (Feet) 150 Assistive Devices Assistive Device None Gait Deviations General Gait Pattern Decreased Stride Length Factors Limiting Gait Function Factors Limiting Gait Function Decreased Strength PT-OP-K Range of Motion Start: 03/23/21 09:43 Freq: Status: Active Protocol: Document 03/23/21 09:44 OF (Rec: 03/23/21 10:05 OF [id number]) Lumbar Spine Range of Motion Lumbar Spine Active Testing Position Standing Comments Pt demonstrates normal AROM standing PT-OP-M Strength Start: 03/23/21 09:43 Freq: Status: Active Protocol: Document 03/23/21 09:44 OF (Rec: 03/23/21 10:05 OF [id number]) Hip Strength Hip Manual Muscle Testing L Flexion (L2) 3+ Fair+ Extension (S1) 3+ Fair+ Abduction 3+ Fair+ R Flexion (L2) 3+ Fair+ Extension (S1) 3+ Fair+ Abduction 3+ Fair+ Knee Strength Knee Manual Muscle Testing L Flexion (S2) 3+ Fair+ Extension (L3) 3+ Fair+ R Flexion (S2) 3+ Fair+ Extension (L3) 3+ Fair+ Ankle/Foot Strength Ankle and Foot Manual Muscle Testing L Dorsiflexion (L4) 3+ Fair+ Plantarflexion (S1) 3+ Fair+ R Dorsiflexion (L4) 3+ Fair+ Plantarflexion (S1) 3+ Fair+ PT-OP-Q Treatments Start: 03/23/21 09:43 Freq: Status: Active Protocol: Document 04/22/21 10:38 SP (Rec: 04/22/21 11:30 SP [id number]) Cardio Equipment Elliptical Duration (Minutes) 5 Resistance 5 Other 0.25 miles- good neutral spinea alignment Therapeutic Exercises Supine Exercises anjana stretch Side bilateral Reps/Minutes 2' Comments cues for LE placement, good more broad stretch- added LAQ small range MWM Sidelying Exercises open book Sidelying Exercise Name hand on head, head with arm ( mid thoracis ROM) Side bilateral Resistance AROM Equipment Used reviewed HEP Reps/Minutes x5 reps, can add breath at end feeel Comments good gentle pain free range- TS mob, cued no [place] recruit Standing Exercises shld ext Standing Exercise Name added to HEP Side bilateral Resistance TB #2 Reps/Minutes 10 x2 Comments good tall posture, PPT and core fac lateral band walk Standing Exercise Name added to HEP (good understanding hip abd, glut awareness and not TFL) Side bilateral Resistance TB #1 Reps/Minutes 10 ft Comments cued upright posture and neutral pelvis Hip Ext Standing Exercise Name reviewed HEP Side bilateral Equipment Used lvl 1 TB (provided loop for home) Reps/Minutes 2x10 Comments good glut fac and PPT awareness and no recruit LB. rows Standing Exercise Name reviewed HEP Side bilateral Resistance TB3 Reps/Minutes 2x10 Comments Cues for scapular retraction, maintaining spinal extension Other Exercises hip flexor stretch Other Exercise Name standing lunge find more stretch isolation vs 1/2 kneel w/ cushion Side bilateral Equipment Used reviewed HEP Reps/Minutes 30 x2 Comments good response prox quad, TFL stretch- Manual Therapy Treatment Soft Tissue Mobilization Psoas Body Location B psoas, iliacus prox and TFL Mobilization Type Cross-Friction,Sustained Pressure Intensity/Depth Deep Body Position Supine Comments w/ breath and feedback comfort placement. PT-OP-T Assessment and Plan Start: 03/23/21 09:43 Freq: Status: Active Protocol: Document 04/22/21 10:38 SP (Rec: 04/22/21 11:30 SP [id number]) Physical Therapy Assessment Goals 3 Impairment difficulty walking >150ft Short Term Goal (STG) pt will AMB 500ft without AD I STG Duration 2 weeks [facility] Goal (LTG) Pt will AMB >1500ft I to return to PLOF LTG Duration 6weeks 2 Impairment LE weakness Short Term Goal (STG) Pt will improve LE strength to complete 6 sit to stands in 30sec without UE STG Duration 2 weeks [facility] Goal (LTG) Pt will improve LE strength to complete 12 sit to stands in 30sec without UE to demonstrate improved community mobility. 1 Impairment Pt has no HEP Short Term Goal (STG) Pt will perform basic HEP for LE strenghtening, and postural control STG Duration 2weeks [facility] Goal (LTG) Pt will be I with advanced HEP including pain management LTG Duration 6weeks Assessment Summary Assessment Pt improved with relief post manual, hip flex stretch, hip ext w/ breath and alignment corrections with occasional cues for PPT and core /glut facilitation during ther ex today. Pt reported my hip flexor and Low back feel better when leaving. Physical Therapy Plan Frequency and Duration Frequency of Treatment 1-2x/week Duration of Treatment 6weeks Plan of Care Start Date 03/23/21 Plan of Care End Date 05/04/21 Therapeutic Interventions Therapeutic Interventions Gait Training,Home Exercise Program,Joint Mobilizations, Manual Therapy,Neuromuscular Re-education,Self-Care/Home Management,Therapeutic Activities,Therapeutic Exercises Next Visit Focus/Plan Next Note Type Treatment Note Next Visit Plan Continue standing hip extension and core progression . Stretching, self STMs, TA HEP , open book last tx. POC: Progress if well tolerated to bike/stepper/ treadmill, increase glute strengthening and core strengthening
--- NOTE | 2021-04-27 17:35 | PT.OTN ---
Current Diagnoses Spinal stenosis, lumbar region with neurogenic claudication (04/27/21) Physical Therapy Treatment Note PT-OP-A Visit Information Start: 03/23/21 09:43 Freq: Status: Active Protocol: Document 04/27/21 16:48 DCW (Rec: 04/27/21 17:35 DCW [id number]) Out-Patient Physical Therapy Visit Information Visit Information Visit Type Treatment Note Visit Start Time 16:48 Visit Stop Time 17:30 Total Visit Minutes 42 Visit Number 9 Number of CAREER DEVELOPMENT ASSOCIATE Visits 0 Evaluation Information Evaluation Date 03/23/21 Precautions Precautions spinal precautions lifted PT-OP-B Current Condition Start: 03/23/21 09:43 Freq: Status: Active Protocol: Document 03/23/21 09:44 OF (Rec: 03/23/21 10:05 OF [id number]) Current Condition History of Current Condition Onset Date 02/11/21 History of Current Condition pt has had chronic LBP, recently underwent lumbar fusion. Prior Treatments and Tests prior PT for lumbar/hip pain, OT for wrist pain Developmental History Developmental History pt states she had braces to address inversion/supination of Bilat feet when she was young Treatment Goals Patient/Caregiver Goals get back to driving 2-3hrs without stopping Prior Functional Status Baseline Function- ADL's Independent Baseline Function- Mobility Independent Baseline Function- Other Pt was I within community until last year. PT-OP-C Subjective Start: 03/23/21 09:43 Freq: Status: Active Protocol: Document 04/27/21 16:48 DCW (Rec: 04/27/21 17:35 DCW [id number]) OP-PT Subjective Patient Comments Patient Comments Still feeling pretty good. I still have a little tightness up through my shoulders, but not too bad. 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 OP Gait Assessment Gait Gait Assistance Required: Independent Distance (Feet) 150 Assistive Devices Assistive Device None Gait Deviations General Gait Pattern Decreased Stride Length Factors Limiting Gait Function Factors Limiting Gait Function Decreased Strength PT-OP-K Range of Motion Start: 03/23/21 09:43 Freq: Status: Active Protocol: Document 03/23/21 09:44 OF (Rec: 03/23/21 10:05 OF [id number]) Lumbar Spine Range of Motion Lumbar Spine Active Testing Position Standing Comments Pt demonstrates normal AROM standing PT-OP-M Strength Start: 03/23/21 09:43 Freq: Status: Active Protocol: Document 03/23/21 09:44 OF (Rec: 03/23/21 10:05 OF [id number]) Hip Strength Hip Manual Muscle Testing L Flexion (L2) 3+ Fair+ Extension (S1) 3+ Fair+ Abduction 3+ Fair+ R Flexion (L2) 3+ Fair+ Extension (S1) 3+ Fair+ Abduction 3+ Fair+ Knee Strength Knee Manual Muscle Testing L Flexion (S2) 3+ Fair+ Extension (L3) 3+ Fair+ R Flexion (S2) 3+ Fair+ Extension (L3) 3+ Fair+ Ankle/Foot Strength Ankle and Foot Manual Muscle Testing L Dorsiflexion (L4) 3+ Fair+ Plantarflexion (S1) 3+ Fair+ R Dorsiflexion (L4) 3+ Fair+ Plantarflexion (S1) 3+ Fair+ PT-OP-Q Treatments Start: 03/23/21 09:43 Freq: Status: Active Protocol: Document 04/27/21 16:48 DCW (Rec: 04/27/21 17:35 DCW [id number]) Cardio Equipment Elliptical Duration (Minutes) 5 Resistance 5 Other 0.26 miles Therapeutic Exercises Standing Exercises lateral band walk Resistance Green Reps/Minutes 20' x4 Manual Therapy Treatment Soft Tissue Mobilization Thoracic Body Location Rhomboids, parascapulars Mobilization Type Strumming,Sustained Pressure, Trigger Point Release Body Position Supine PT-OP-T Assessment and Plan Start: 03/23/21 09:43 Freq: Status: Active Protocol: Document 04/27/21 16:48 DCW (Rec: 04/27/21 17:35 DCW [id number]) Physical Therapy Assessment Goals 3 Impairment difficulty walking >150ft Short Term Goal (STG) pt will AMB 500ft without AD I STG Duration 2 weeks Jail Goal (LTG) Pt will AMB >1500ft I to return to PLOF LTG Duration 6weeks 2 Impairment LE weakness Short Term Goal (STG) Pt will improve LE strength to complete 6 sit to stands in 30sec without UE STG Duration 2 weeks Equipment Operation Instructor Goal (LTG) Pt will improve LE strength to complete 12 sit to stands in 30sec without UE to demonstrate improved community mobility. 1 Impairment Pt has no HEP Short Term Goal (STG) Pt will perform basic HEP for LE strenghtening, and postural control STG Duration 2weeks Equipment Operation Instructor Goal (LTG) Pt will be I with advanced HEP including pain management LTG Duration 6weeks Assessment Summary Assessment Pt experiencing increased thoracic pain today, slight adduction of right scapula, significantly improved following manual/STM today. Physical Therapy Plan Frequency and Duration Frequency of Treatment 1-2x/week Duration of Treatment 6weeks Plan of Care Start Date 03/23/21 Plan of Care End Date 05/04/21 Therapeutic Interventions Therapeutic Interventions Gait Training,Home Exercise Program,Joint Mobilizations, Manual Therapy,Neuromuscular Re-education,Self-Care/Home Management,Therapeutic Activities,Therapeutic Exercises Next Visit Focus/Plan Next Note Type Progress Note Next Visit Plan Continue standing hip extension and core progression . Stretching, self STMs, TA HEP , open book last tx. POC: Progress if well tolerated to bike/stepper/ treadmill, increase glute strengthening and core strengthening
--- NOTE | 2021-05-06 11:15 | PT.OTN ---
Current Diagnoses Spinal stenosis, lumbar region with neurogenic claudication (05/13/21) Physical Therapy Treatment Note PT-OP-A Visit Information Start: 03/23/21 09:43 Freq: Status: Active Protocol: Document 05/13/21 14:26 DCW (Rec: 05/06/21 11:15 DCW [id number]) Out-Patient Physical Therapy Visit Information Visit Information Visit Type Treatment Note Visit Start Time 10:35 Visit Stop Time 11:15 Total Visit Minutes 40 Visit Number 10 Number of CHANNELER RUNNER Visits 0 Evaluation Information Evaluation Date 03/23/21 Precautions Precautions spinal precautions lifted PT-OP-B Current Condition Start: 03/23/21 09:43 Freq: Status: Active Protocol: Document 03/23/21 09:44 OF (Rec: 03/23/21 10:05 OF [id number]) Current Condition History of Current Condition Onset Date 02/11/21 History of Current Condition pt has had chronic LBP, recently underwent lumbar fusion. Prior Treatments and Tests prior PT for lumbar/hip pain, OT for wrist pain Developmental History Developmental History pt states she had braces to address inversion/supination of Bilat feet when she was young Treatment Goals Patient/Caregiver Goals get back to driving 2-3hrs without stopping Prior Functional Status Baseline Function- ADL's Independent Baseline Function- Mobility Independent Baseline Function- Other Pt was I within community until last year. PT-OP-C Subjective Start: 03/23/21 09:43 Freq: Status: Active Protocol: Document 05/13/21 14:26 DCW (Rec: 05/06/21 11:15 DCW [id number]) OP-PT Subjective Patient Comments Patient Comments I'm tired, but feeling pretty good. 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 OP Gait Assessment Gait Gait Assistance Required: Independent Distance (Feet) 150 Assistive Devices Assistive Device None Gait Deviations General Gait Pattern Decreased Stride Length Factors Limiting Gait Function Factors Limiting Gait Function Decreased Strength PT-OP-K Range of Motion Start: 03/23/21 09:43 Freq: Status: Active Protocol: Document 03/23/21 09:44 OF (Rec: 03/23/21 10:05 OF [id number]) Lumbar Spine Range of Motion Lumbar Spine Active Testing Position Standing Comments Pt demonstrates normal AROM standing PT-OP-M Strength Start: 03/23/21 09:43 Freq: Status: Active Protocol: Document 03/23/21 09:44 OF (Rec: 03/23/21 10:05 OF [id number]) Hip Strength Hip Manual Muscle Testing L Flexion (L2) 3+ Fair+ Extension (S1) 3+ Fair+ Abduction 3+ Fair+ R Flexion (L2) 3+ Fair+ Extension (S1) 3+ Fair+ Abduction 3+ Fair+ Knee Strength Knee Manual Muscle Testing L Flexion (S2) 3+ Fair+ Extension (L3) 3+ Fair+ R Flexion (S2) 3+ Fair+ Extension (L3) 3+ Fair+ Ankle/Foot Strength Ankle and Foot Manual Muscle Testing L Dorsiflexion (L4) 3+ Fair+ Plantarflexion (S1) 3+ Fair+ R Dorsiflexion (L4) 3+ Fair+ Plantarflexion (S1) 3+ Fair+ PT-OP-Q Treatments Start: 03/23/21 09:43 Freq: Status: Active Protocol: Document 05/13/21 14:26 DCW (Rec: 05/06/21 11:15 DCW [id number]) Cardio Equipment Elliptical Duration (Minutes) 5 Resistance 5 Other 0.25 miles Therapeutic Exercises Standing Exercises lateral band walk Resistance Green Reps/Minutes 20' x4 Other Exercises hip flexor stretch Other Exercise Name Walking lunge Side bilateral Manual Therapy Treatment Soft Tissue Mobilization Thoracic Body Location Rhomboids, parascapulars Mobilization Type Strumming,Sustained Pressure, Trigger Point Release Body Position Supine PT-OP-T Assessment and Plan Start: 03/23/21 09:43 Freq: Status: Active Protocol: Document 05/13/21 14:26 DCW (Rec: 05/06/21 11:15 DCW [id number]) Physical Therapy Assessment Goals 3 Impairment difficulty walking >150ft Short Term Goal (STG) pt will AMB 500ft without AD I STG Duration 2 weeks Skilled Nursing Goal (LTG) Pt will AMB >1500ft I to return to PLOF LTG Duration 6weeks 2 Impairment LE weakness Short Term Goal (STG) Pt will improve LE strength to complete 6 sit to stands in 30sec without UE STG Duration 2 weeks Skilled Nursing Goal (LTG) Pt will improve LE strength to complete 12 sit to stands in 30sec without UE to demonstrate improved community mobility. 1 Impairment Pt has no HEP Short Term Goal (STG) Pt will perform basic HEP for LE strengthening, and postural control STG Duration 2weeks Meeting Planner Goal (LTG) Pt will be I with advanced HEP including pain management LTG Duration 6weeks Assessment Summary Assessment Pt feeling much better overall , less tone through thoracic spine and improving LE and core strength. Continue skilled therapy to focus on post-op recovery and strengthening Physical Therapy Plan Frequency and Duration Frequency of Treatment 1-2x/week Duration of Treatment 6weeks Plan of Care Start Date 05/06/21 Plan of Care End Date 06/17/21 Therapeutic Interventions Therapeutic Interventions Gait Training,Home Exercise Program,Joint Mobilizations, Manual Therapy,Neuromuscular Re-education,Self-Care/Home Management,Therapeutic Activities,Therapeutic Exercises Next Visit Focus/Plan Next Note Type Progress Note Next Visit Plan Continue standing hip extension and core progression . Stretching, self STMs, TA HEP , open book last tx. POC: Progress if well tolerated to bike/stepper/ treadmill, increase glute strengthening and core strengthening
--- NOTE | 2021-05-06 11:15 | PT.OPPOC ---
Physical, Occupational & Speech Therapy At [facility] Current Diagnoses Spinal stenosis, lumbar region with neurogenic claudication (05/13/21) Visit Care Team Role Provider Type Melanie Kebede MD Family Provider Physician Primary Care Provider Specialty: Family Practice Address: [address] [place] [address], [facility], [place], [address] Email: [email or web address] Isaías Landeros MD Attending Provider Physician Referring Provider Specialty: Orthopedic Surgery Address: [address] [place] [address], [place], [address] Email: Plan Of Care PT-OP-T Assessment and Plan Start: 03/23/21 09:43 Freq: Status: Active Protocol: Document 05/13/21 14:26 DCW (Rec: 05/06/21 11:15 DCW [id number]) Physical Therapy Assessment Goals 3 Impairment difficulty walking >150ft Short Term Goal (STG) pt will AMB 500ft without AD I STG Duration 2 weeks Accounting Clerks Supervisor Goal (LTG) Pt will AMB >1500ft I to return to PLOF LTG Duration 6weeks 2 Impairment LE weakness Short Term Goal (STG) Pt will improve LE strength to complete 6 sit to stands in 30sec without UE STG Duration 2 weeks Fpc Goal (LTG) Pt will improve LE strength to complete 12 sit to stands in 30sec without UE to demonstrate improved community mobility. 1 Impairment Pt has no HEP Short Term Goal (STG) Pt will perform basic HEP for LE strenghtening, and postural control STG Duration 2weeks Accounting Clerks Supervisor Goal (LTG) Pt will be I with advanced HEP including pain management LTG Duration 6weeks Assessment Summary Assessment Pt feeling much better overall , less tone through thoracic spine and improving LE and core strength. Continue skilled therapy to focus on post-op recovery and strengthening Physical Therapy Plan Frequency and Duration Frequency of Treatment 1-2x/week Duration of Treatment 6weeks Plan of Care Start Date 05/06/21 Plan of Care End Date 06/17/21 Therapeutic Interventions Therapeutic Interventions Gait Training,Home Exercise Program,Joint Mobilizations, Manual Therapy,Neuromuscular Re-education,Self-Care/Home Management,Therapeutic Activities,Therapeutic Exercises Next Visit Focus/Plan Next Note Type Progress Note Next Visit Plan Continue standing hip extension and core progression . Stretching, self STMs, TA HEP , open book last tx. POC: Progress if well tolerated to bike/stepper/ treadmill, increase glute strengthening and core strengthening Plan of Care Dates Plan of Care Start Date 05/06/21 Plan of Care End Date 06/17/21 Electronically Signed by: Rudi Doyle, PT 05/13/21 [id number] Please Sign and Return: I have reviewed this Plan of Care and certify that the skilled therapy services above are required to meet the patient?s needs. Physician Signature Date Printed Name and Credentials Clinical Instructor Signature Printed Name and Credentials
--- NOTE | 2021-05-06 11:15 | PT.OTN ---
Current Diagnoses Spinal stenosis, lumbar region with neurogenic claudication (05/06/21) Physical Therapy Treatment Note PT-OP-A Visit Information Start: 03/23/21 09:43 Freq: Status: Active Protocol: Document 05/06/21 10:35 DCW (Rec: 05/06/21 11:15 DCW [id number]) Out-Patient Physical Therapy Visit Information Visit Information Visit Type Treatment Note Visit Start Time 10:35 Visit Stop Time 11:15 Total Visit Minutes 40 Visit Number 10 Number of FLAGGER Visits 0 Evaluation Information Evaluation Date 03/23/21 Precautions Precautions spinal precautions lifted PT-OP-B Current Condition Start: 03/23/21 09:43 Freq: Status: Active Protocol: Document 03/23/21 09:44 OF (Rec: 03/23/21 10:05 OF [id number]) Current Condition History of Current Condition Onset Date 02/11/21 History of Current Condition pt has had chronic LBP, recently underwent lumbar fusion. Prior Treatments and Tests prior PT for lumbar/hip pain, OT for wrist pain Developmental History Developmental History pt states she had braces to address inversion/supination of Bilat feet when she was young Treatment Goals Patient/Caregiver Goals get back to driving 2-3hrs without stopping Prior Functional Status Baseline Function- ADL's Independent Baseline Function- Mobility Independent Baseline Function- Other Pt was I within community until last year. PT-OP-C Subjective Start: 03/23/21 09:43 Freq: Status: Active Protocol: Document 05/06/21 10:35 DCW (Rec: 05/06/21 11:15 DCW [id number]) OP-PT Subjective Patient Comments Patient Comments I'm tired, but feeling pretty good. 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 OP Gait Assessment Gait Gait Assistance Required: Independent Distance (Feet) 150 Assistive Devices Assistive Device None Gait Deviations General Gait Pattern Decreased Stride Length Factors Limiting Gait Function Factors Limiting Gait Function Decreased Strength PT-OP-K Range of Motion Start: 03/23/21 09:43 Freq: Status: Active Protocol: Document 03/23/21 09:44 OF (Rec: 03/23/21 10:05 OF [id number]) Lumbar Spine Range of Motion Lumbar Spine Active Testing Position Standing Comments Pt demonstrates normal AROM standing PT-OP-M Strength Start: 03/23/21 09:43 Freq: Status: Active Protocol: Document 03/23/21 09:44 OF (Rec: 03/23/21 10:05 OF [id number]) Hip Strength Hip Manual Muscle Testing L Flexion (L2) 3+ Fair+ Extension (S1) 3+ Fair+ Abduction 3+ Fair+ R Flexion (L2) 3+ Fair+ Extension (S1) 3+ Fair+ Abduction 3+ Fair+ Knee Strength Knee Manual Muscle Testing L Flexion (S2) 3+ Fair+ Extension (L3) 3+ Fair+ R Flexion (S2) 3+ Fair+ Extension (L3) 3+ Fair+ Ankle/Foot Strength Ankle and Foot Manual Muscle Testing L Dorsiflexion (L4) 3+ Fair+ Plantarflexion (S1) 3+ Fair+ R Dorsiflexion (L4) 3+ Fair+ Plantarflexion (S1) 3+ Fair+ PT-OP-Q Treatments Start: 03/23/21 09:43 Freq: Status: Active Protocol: Document 05/06/21 10:35 DCW (Rec: 05/06/21 11:15 DCW [id number]) Cardio Equipment Elliptical Duration (Minutes) 5 Resistance 5 Other 0.25 miles Therapeutic Exercises Standing Exercises lateral band walk Resistance Green Reps/Minutes 20' x4 Other Exercises hip flexor stretch Other Exercise Name Walking lunge Side bilateral Manual Therapy Treatment Soft Tissue Mobilization Thoracic Body Location Rhomboids, parascapulars Mobilization Type Strumming,Sustained Pressure, Trigger Point Release Body Position Supine PT-OP-T Assessment and Plan Start: 03/23/21 09:43 Freq: Status: Active Protocol: Document 05/06/21 10:35 DCW (Rec: 05/06/21 11:15 DCW [id number]) Physical Therapy Assessment Goals 3 Impairment difficulty walking >150ft Short Term Goal (STG) pt will AMB 500ft without AD I STG Duration 2 weeks Senior Living Goal (LTG) Pt will AMB >1500ft I to return to PLOF LTG Duration 6weeks 2 Impairment LE weakness Short Term Goal (STG) Pt will improve LE strength to complete 6 sit to stands in 30sec without UE STG Duration 2 weeks Senior Living Goal (LTG) Pt will improve LE strength to complete 12 sit to stands in 30sec without UE to demonstrate improved community mobility. 1 Impairment Pt has no HEP Short Term Goal (STG) Pt will perform basic HEP for LE strenghtening, and postural control STG Duration 2weeks Election Judge Goal (LTG) Pt will be I with advanced HEP including pain management LTG Duration 6weeks Assessment Summary Assessment Pt feeling much better overall , less tone through thoracic spine and improving LE and core strength Physical Therapy Plan Frequency and Duration Frequency of Treatment 1-2x/week Duration of Treatment 6weeks Plan of Care Start Date 03/23/21 Plan of Care End Date 05/04/21 Therapeutic Interventions Therapeutic Interventions Gait Training,Home Exercise Program,Joint Mobilizations, Manual Therapy,Neuromuscular Re-education,Self-Care/Home Management,Therapeutic Activities,Therapeutic Exercises Next Visit Focus/Plan Next Note Type Progress Note Next Visit Plan Continue standing hip extension and core progression . Stretching, self STMs, TA HEP , open book last tx. POC: Progress if well tolerated to bike/stepper/ treadmill, increase glute strengthening and core strengthening
--- NOTE | 2021-05-11 11:16 | PT.OTN ---
Current Diagnoses Spinal stenosis, lumbar region with neurogenic claudication (05/11/21) Physical Therapy Treatment Note PT-OP-A Visit Information Start: 03/23/21 09:43 Freq: Status: Active Protocol: Document 05/11/21 10:33 DCW (Rec: 05/11/21 11:16 DCW [id number]) Out-Patient Physical Therapy Visit Information Visit Information Visit Type Treatment Note Visit Start Time 10:33 Visit Stop Time 11:15 Total Visit Minutes 42 Visit Number 11 Number of ACADEMIC ADMINISTRATOR Visits 0 Evaluation Information Evaluation Date 03/23/21 Precautions Precautions spinal precautions lifted PT-OP-B Current Condition Start: 03/23/21 09:43 Freq: Status: Active Protocol: Document 03/23/21 09:44 OF (Rec: 03/23/21 10:05 OF [id number]) Current Condition History of Current Condition Onset Date 02/11/21 History of Current Condition pt has had chronic LBP, recently underwent lumbar fusion. Prior Treatments and Tests prior PT for lumbar/hip pain, OT for wrist pain Developmental History Developmental History pt states she had braces to address inversion/supination of Bilat feet when she was young Treatment Goals Patient/Caregiver Goals get back to driving 2-3hrs without stopping Prior Functional Status Baseline Function- ADL's Independent Baseline Function- Mobility Independent Baseline Function- Other Pt was I within community until last year. PT-OP-C Subjective Start: 03/23/21 09:43 Freq: Status: Active Protocol: Document 05/11/21 10:33 DCW (Rec: 05/11/21 11:16 DCW [id number]) OP-PT Subjective Patient Comments Patient Comments Pt reports she had a little trouble falling asleep last night, her mid-back was pretty tight. Notes she was able to drive back from work 1h15m without stopping, which is the first time she's done it with no stops, overall felt pretty good. PT-OP-G Mobility & Gait Start: 03/23/21 09:43 Freq: Status: Active Protocol: Document 03/23/21 09:44 OF (Rec: 03/23/21 10:05 OF [id number]) OP Mobility Evaluation Bed Mobility Rolling I with log rolling Functional Movements Other Functional Movements Pt has difficulty reaching to floor to sweet pickle maker objects OP Gait Assessment Gait Gait Assistance Required: Independent Distance (Feet) 150 Assistive Devices Assistive Device None Gait Deviations General Gait Pattern Decreased Stride Length Factors Limiting Gait Function Factors Limiting Gait Function Decreased Strength PT-OP-K Range of Motion Start: 03/23/21 09:43 Freq: Status: Active Protocol: Document 03/23/21 09:44 OF (Rec: 03/23/21 10:05 OF [id number]) Lumbar Spine Range of Motion Lumbar Spine Active Testing Position Standing Comments Pt demonstrates normal AROM standing PT-OP-M Strength Start: 03/23/21 09:43 Freq: Status: Active Protocol: Document 03/23/21 09:44 OF (Rec: 03/23/21 10:05 OF [id number]) Hip Strength Hip Manual Muscle Testing L Flexion (L2) 3+ Fair+ Extension (S1) 3+ Fair+ Abduction 3+ Fair+ R Flexion (L2) 3+ Fair+ Extension (S1) 3+ Fair+ Abduction 3+ Fair+ Knee Strength Knee Manual Muscle Testing L Flexion (S2) 3+ Fair+ Extension (L3) 3+ Fair+ R Flexion (S2) 3+ Fair+ Extension (L3) 3+ Fair+ Ankle/Foot Strength Ankle and Foot Manual Muscle Testing L Dorsiflexion (L4) 3+ Fair+ Plantarflexion (S1) 3+ Fair+ R Dorsiflexion (L4) 3+ Fair+ Plantarflexion (S1) 3+ Fair+ PT-OP-Q Treatments Start: 03/23/21 09:43 Freq: Status: Active Protocol: Document 05/11/21 10:33 DCW (Rec: 05/11/21 11:16 DCW [id number]) Cardio Equipment Elliptical Duration (Minutes) 5 Resistance 7 Other 0.24 miles Therapeutic Exercises Standing Exercises lateral band walk Resistance Green Reps/Minutes 20' x4 Other Exercises hip flexor stretch Other Exercise Name Walking lunge Side bilateral Manual Therapy Treatment Soft Tissue Mobilization Thoracic Body Location Rhomboids, parascapulars Mobilization Type Strumming,Sustained Pressure, Trigger Point Release Body Position Supine PT-OP-T Assessment and Plan Start: 03/23/21 09:43 Freq: Status: Active Protocol: Document 05/11/21 10:33 DCW (Rec: 05/11/21 11:16 DCW [id number]) Physical Therapy Assessment Goals 3 Impairment difficulty walking >150ft Short Term Goal (STG) pt will AMB 500ft without AD I STG Duration 2 weeks Skilled Nursing Goal (LTG) Pt will AMB >1500ft I to return to PLOF LTG Duration 6weeks 2 Impairment LE weakness Short Term Goal (STG) Pt will improve LE strength to complete 6 sit to stands in 30sec without UE STG Duration 2 weeks Cross Tie Tram Loader Goal (LTG) Pt will improve LE strength to complete 12 sit to stands in 30sec without UE to demonstrate improved community mobility. 1 Impairment Pt has no HEP Short Term Goal (STG) Pt will perform basic HEP for LE strenghtening, and postural control STG Duration 2weeks Skilled Nursing Goal (LTG) Pt will be I with advanced HEP including pain management LTG Duration 6weeks Assessment Summary Assessment Pt continues to make good progress, still having some increased T-spine tone. Physical Therapy Plan Frequency and Duration Frequency of Treatment 1-2x/week Duration of Treatment 6weeks Plan of Care Start Date 03/23/21 Plan of Care End Date 05/04/21 Therapeutic Interventions Therapeutic Interventions Gait Training,Home Exercise Program,Joint Mobilizations, Manual Therapy,Neuromuscular Re-education,Self-Care/Home Management,Therapeutic Activities,Therapeutic Exercises Next Visit Focus/Plan Next Note Type Progress Note Next Visit Plan Continue standing hip extension and core progression . Stretching, self STMs, TA HEP , open book last tx. POC: Progress if well tolerated to bike/stepper/ treadmill, increase glute strengthening and core strengthening
--- NOTE | 2021-05-13 15:48 | PT.OTN ---
Current Diagnoses Spinal stenosis, lumbar region with neurogenic claudication (05/13/21) Physical Therapy Treatment Note PT-OP-A Visit Information Start: 03/23/21 09:43 Freq: Status: Active Protocol: Document 05/13/21 10:31 DCW (Rec: 05/13/21 15:47 DCW [id number]) Out-Patient Physical Therapy Visit Information Visit Information Visit Type Treatment Note Visit Start Time 10:31 Visit Stop Time 11:15 Total Visit Minutes 44 Visit Number 12 Number of CIRCUIT BREAKER ASSEMBLER Visits 0 Evaluation Information Evaluation Date 03/23/21 Precautions Precautions spinal precautions lifted PT-OP-B Current Condition Start: 03/23/21 09:43 Freq: Status: Active Protocol: Document 03/23/21 09:44 OF (Rec: 03/23/21 10:05 OF [id number]) Current Condition History of Current Condition Onset Date 02/11/21 History of Current Condition pt has had chronic LBP, recently underwent lumbar fusion. Prior Treatments and Tests prior PT for lumbar/hip pain, OT for wrist pain Developmental History Developmental History pt states she had braces to address inversion/supination of Bilat feet when she was young Treatment Goals Patient/Caregiver Goals get back to driving 2-3hrs without stopping Prior Functional Status Baseline Function- ADL's Independent Baseline Function- Mobility Independent Baseline Function- Other Pt was I within community until last year. PT-OP-C Subjective Start: 03/23/21 09:43 Freq: Status: Active Protocol: Document 05/13/21 10:31 DCW (Rec: 05/13/21 15:47 DCW [id number]) OP-PT Subjective Patient Comments Patient Comments The stuff bothering me the most is still my upper back now. PT-OP-G Mobility & Gait Start: 03/23/21 09:43 Freq: Status: Active Protocol: Document 03/23/21 09:44 OF (Rec: 03/23/21 10:05 OF [id number]) OP Mobility Evaluation Bed Mobility Rolling I with log rolling Functional Movements Other Functional Movements Pt has difficulty reaching to floor to pick pulling machine tender objects OP Gait Assessment Gait Gait Assistance Required: Independent Distance (Feet) 150 Assistive Devices Assistive Device None Gait Deviations General Gait Pattern Decreased Stride Length Factors Limiting Gait Function Factors Limiting Gait Function Decreased Strength PT-OP-K Range of Motion Start: 03/23/21 09:43 Freq: Status: Active Protocol: Document 03/23/21 09:44 OF (Rec: 03/23/21 10:05 OF [id number]) Lumbar Spine Range of Motion Lumbar Spine Active Testing Position Standing Comments Pt demonstrates normal AROM standing PT-OP-M Strength Start: 03/23/21 09:43 Freq: Status: Active Protocol: Document 03/23/21 09:44 OF (Rec: 03/23/21 10:05 OF [id number]) Hip Strength Hip Manual Muscle Testing L Flexion (L2) 3+ Fair+ Extension (S1) 3+ Fair+ Abduction 3+ Fair+ R Flexion (L2) 3+ Fair+ Extension (S1) 3+ Fair+ Abduction 3+ Fair+ Knee Strength Knee Manual Muscle Testing L Flexion (S2) 3+ Fair+ Extension (L3) 3+ Fair+ R Flexion (S2) 3+ Fair+ Extension (L3) 3+ Fair+ Ankle/Foot Strength Ankle and Foot Manual Muscle Testing L Dorsiflexion (L4) 3+ Fair+ Plantarflexion (S1) 3+ Fair+ R Dorsiflexion (L4) 3+ Fair+ Plantarflexion (S1) 3+ Fair+ PT-OP-Q Treatments Start: 03/23/21 09:43 Freq: Status: Active Protocol: Document 05/13/21 10:31 DCW (Rec: 05/13/21 15:47 DCW [id number]) Cardio Equipment Elliptical Duration (Minutes) 5 Resistance 7 Other 0.25 miles Therapeutic Exercises Standing Exercises lateral band walk Resistance Green Reps/Minutes 20' x4 Other Exercises hip flexor stretch Other Exercise Name Walking lunge Side bilateral Manual Therapy Treatment Soft Tissue Mobilization Thoracic Body Location Rhomboids, parascapulars Mobilization Type Strumming,Sustained Pressure, Trigger Point Release Body Position Supine PT-OP-T Assessment and Plan Start: 03/23/21 09:43 Freq: Status: Active Protocol: Document 05/13/21 10:31 DCW (Rec: 05/13/21 15:47 DCW [id number]) Physical Therapy Assessment Goals 3 Impairment difficulty walking >150ft Short Term Goal (STG) pt will AMB 500ft without AD I STG Duration 2 weeks Motor Home Electrical Foreman Goal (LTG) Pt will AMB >1500ft I to return to PLOF LTG Duration 6weeks 2 Impairment LE weakness Short Term Goal (STG) Pt will improve LE strength to complete 6 sit to stands in 30sec without UE STG Duration 2 weeks Motor Home Electrical Foreman Goal (LTG) Pt will improve LE strength to complete 12 sit to stands in 30sec without UE to demonstrate improved community mobility. 1 Impairment Pt has no HEP Short Term Goal (STG) Pt will perform basic HEP for LE strenghtening, and postural control STG Duration 2weeks Motor Home Electrical Foreman Goal (LTG) Pt will be I with advanced HEP including pain management LTG Duration 6weeks Assessment Summary Assessment Pt continues to make good progress, still having some increased T-spine tone. Physical Therapy Plan Frequency and Duration Frequency of Treatment 1-2x/week Duration of Treatment 6weeks Plan of Care Start Date 05/06/21 Plan of Care End Date 06/17/21 Therapeutic Interventions Therapeutic Interventions Gait Training,Home Exercise Program,Joint Mobilizations, Manual Therapy,Neuromuscular Re-education,Self-Care/Home Management,Therapeutic Activities,Therapeutic Exercises Next Visit Focus/Plan Next Note Type Treatment Note Next Visit Plan Continue standing hip extension and core progression . Stretching, self STMs, TA HEP , open book last tx. POC: Progress if well tolerated to bike/stepper/ treadmill, increase glute strengthening and core strengthening
--- NOTE | 2021-05-27 11:14 | PT.OTN ---
Current Diagnoses Spinal stenosis, lumbar region with neurogenic claudication (05/27/21) Physical Therapy Treatment Note PT-OP-A Visit Information Start: 03/23/21 09:43 Freq: Status: Active Protocol: Document 05/27/21 10:35 DCW (Rec: 05/27/21 11:14 DCW [id number]) Out-Patient Physical Therapy Visit Information Visit Information Visit Type Treatment Note Visit Start Time 10:35 Visit Stop Time 11:15 Total Visit Minutes 40 Visit Number 13 Number of EXTRACTION MACHINE OPERATOR Visits 0 Evaluation Information Evaluation Date 03/23/21 Precautions Precautions spinal precautions lifted PT-OP-B Current Condition Start: 03/23/21 09:43 Freq: Status: Active Protocol: Document 03/23/21 09:44 OF (Rec: 03/23/21 10:05 OF [id number]) Current Condition History of Current Condition Onset Date 02/11/21 History of Current Condition pt has had chronic LBP, recently underwent lumbar fusion. Prior Treatments and Tests prior PT for lumbar/hip pain, OT for wrist pain Developmental History Developmental History pt states she had braces to address inversion/supination of Bilat feet when she was young Treatment Goals Patient/Caregiver Goals get back to driving 2-3hrs without stopping Prior Functional Status Baseline Function- ADL's Independent Baseline Function- Mobility Independent Baseline Function- Other Pt was I within community until last year. PT-OP-C Subjective Start: 03/23/21 09:43 Freq: Status: Active Protocol: Document 05/27/21 10:35 DCW (Rec: 05/27/21 11:14 DCW [id number]) OP-PT Subjective Patient Comments Patient Comments I got my soreness right there (right parascapulars), and that's about it. PT-OP-G Mobility & Gait Start: 03/23/21 09:43 Freq: Status: Active Protocol: Document 03/23/21 09:44 OF (Rec: 03/23/21 10:05 OF [id number]) OP Mobility Evaluation Bed Mobility Rolling I with log rolling Functional Movements Other Functional Movements Pt has difficulty reaching to floor to draft roller picker objects OP Gait Assessment Gait Gait Assistance Required: Independent Distance (Feet) 150 Assistive Devices Assistive Device None Gait Deviations General Gait Pattern Decreased Stride Length Factors Limiting Gait Function Factors Limiting Gait Function Decreased Strength PT-OP-K Range of Motion Start: 03/23/21 09:43 Freq: Status: Active Protocol: Document 03/23/21 09:44 OF (Rec: 03/23/21 10:05 OF [id number]) Lumbar Spine Range of Motion Lumbar Spine Active Testing Position Standing Comments Pt demonstrates normal AROM standing PT-OP-M Strength Start: 03/23/21 09:43 Freq: Status: Active Protocol: Document 03/23/21 09:44 OF (Rec: 03/23/21 10:05 OF [id number]) Hip Strength Hip Manual Muscle Testing L Flexion (L2) 3+ Fair+ Extension (S1) 3+ Fair+ Abduction 3+ Fair+ R Flexion (L2) 3+ Fair+ Extension (S1) 3+ Fair+ Abduction 3+ Fair+ Knee Strength Knee Manual Muscle Testing L Flexion (S2) 3+ Fair+ Extension (L3) 3+ Fair+ R Flexion (S2) 3+ Fair+ Extension (L3) 3+ Fair+ Ankle/Foot Strength Ankle and Foot Manual Muscle Testing L Dorsiflexion (L4) 3+ Fair+ Plantarflexion (S1) 3+ Fair+ R Dorsiflexion (L4) 3+ Fair+ Plantarflexion (S1) 3+ Fair+ PT-OP-Q Treatments Start: 03/23/21 09:43 Freq: Status: Active Protocol: Document 05/27/21 10:35 DCW (Rec: 05/27/21 11:14 DCW [id number]) Cardio Equipment Elliptical Duration (Minutes) 5 Resistance 7 Other 0.26 miles Therapeutic Exercises Standing Exercises lateral band walk Resistance Blue Reps/Minutes 20' x4 Other Exercises hip flexor stretch Other Exercise Name Walking lunge Side bilateral Manual Therapy Treatment Soft Tissue Mobilization Thoracic Body Location Rhomboids, parascapulars Mobilization Type Strumming,Sustained Pressure, Trigger Point Release Body Position Supine PT-OP-T Assessment and Plan Start: 03/23/21 09:43 Freq: Status: Active Protocol: Document 05/27/21 10:35 DCW (Rec: 05/27/21 11:14 DCW [id number]) Physical Therapy Assessment Goals 3 Impairment difficulty walking >150ft Short Term Goal (STG) pt will AMB 500ft without AD I STG Duration 2 weeks Welder Metal Fab Goal (LTG) Pt will AMB >1500ft I to return to PLOF LTG Duration 6weeks 2 Impairment LE weakness Short Term Goal (STG) Pt will improve LE strength to complete 6 sit to stands in 30sec without UE STG Duration 2 weeks Welder Metal Fab Goal (LTG) Pt will improve LE strength to complete 12 sit to stands in 30sec without UE to demonstrate improved community mobility. 1 Impairment Pt has no HEP Short Term Goal (STG) Pt will perform basic HEP for LE strenghtening, and postural control STG Duration 2weeks Welder Metal Fab Goal (LTG) Pt will be I with advanced HEP including pain management LTG Duration 6weeks Assessment Summary Assessment Pt tolerated treatment well, was able to do canoeing for two hours during her vacation with no increased symptoms. Physical Therapy Plan Frequency and Duration Frequency of Treatment 1-2x/week Duration of Treatment 6weeks Plan of Care Start Date 05/06/21 Plan of Care End Date 06/17/21 Therapeutic Interventions Therapeutic Interventions Gait Training,Home Exercise Program,Joint Mobilizations, Manual Therapy,Neuromuscular Re-education,Self-Care/Home Management,Therapeutic Activities,Therapeutic Exercises Next Visit Focus/Plan Next Note Type Treatment Note Next Visit Plan Continue standing hip extension and core progression . Stretching, self STMs, TA HEP , open book last tx. POC: Progress if well tolerated to bike/stepper/ treadmill, increase glute strengthening and core strengthening
--- NOTE | 2021-06-01 11:15 | PT.OTN ---
Current Diagnoses Spinal stenosis, lumbar region with neurogenic claudication (06/01/21) Physical Therapy Treatment Note PT-OP-A Visit Information Start: 03/23/21 09:43 Freq: Status: Active Protocol: Document 06/01/21 10:32 DCW (Rec: 06/01/21 11:15 DCW [id number]) Out-Patient Physical Therapy Visit Information Visit Information Visit Type Treatment Note Visit Start Time 10:32 Visit Stop Time 11:15 Total Visit Minutes 43 Visit Number 14 Number of SENIOR NET ARCHITECT Visits 0 Evaluation Information Evaluation Date 03/23/21 Precautions Precautions spinal precautions lifted PT-OP-B Current Condition Start: 03/23/21 09:43 Freq: Status: Active Protocol: Document 03/23/21 09:44 OF (Rec: 03/23/21 10:05 OF [id number]) Current Condition History of Current Condition Onset Date 02/11/21 History of Current Condition pt has had chronic LBP, recently underwent lumbar fusion. Prior Treatments and Tests prior PT for lumbar/hip pain, OT for wrist pain Developmental History Developmental History pt states she had braces to address inversion/supination of Bilat feet when she was young Treatment Goals Patient/Caregiver Goals get back to driving 2-3hrs without stopping Prior Functional Status Baseline Function- ADL's Independent Baseline Function- Mobility Independent Baseline Function- Other Pt was I within community until last year. PT-OP-C Subjective Start: 03/23/21 09:43 Freq: Status: Active Protocol: Document 06/01/21 10:32 DCW (Rec: 06/01/21 11:15 DCW [id number]) OP-PT Subjective Patient Comments Patient Comments Pt having increased right UE tingling, reports she has started paperwork to have a cervical MRI PT-OP-G Mobility & Gait Start: 03/23/21 09:43 Freq: Status: Active Protocol: Document 03/23/21 09:44 OF (Rec: 03/23/21 10:05 OF [id number]) OP Mobility Evaluation Bed Mobility Rolling I with log rolling Functional Movements Other Functional Movements Pt has difficulty reaching to floor to machine operator picker objects OP Gait Assessment Gait Gait Assistance Required: Independent Distance (Feet) 150 Assistive Devices Assistive Device None Gait Deviations General Gait Pattern Decreased Stride Length Factors Limiting Gait Function Factors Limiting Gait Function Decreased Strength PT-OP-K Range of Motion Start: 03/23/21 09:43 Freq: Status: Active Protocol: Document 03/23/21 09:44 OF (Rec: 03/23/21 10:05 OF [id number]) Lumbar Spine Range of Motion Lumbar Spine Active Testing Position Standing Comments Pt demonstrates normal AROM standing PT-OP-M Strength Start: 03/23/21 09:43 Freq: Status: Active Protocol: Document 03/23/21 09:44 OF (Rec: 03/23/21 10:05 OF [id number]) Hip Strength Hip Manual Muscle Testing L Flexion (L2) 3+ Fair+ Extension (S1) 3+ Fair+ Abduction 3+ Fair+ R Flexion (L2) 3+ Fair+ Extension (S1) 3+ Fair+ Abduction 3+ Fair+ Knee Strength Knee Manual Muscle Testing L Flexion (S2) 3+ Fair+ Extension (L3) 3+ Fair+ R Flexion (S2) 3+ Fair+ Extension (L3) 3+ Fair+ Ankle/Foot Strength Ankle and Foot Manual Muscle Testing L Dorsiflexion (L4) 3+ Fair+ Plantarflexion (S1) 3+ Fair+ R Dorsiflexion (L4) 3+ Fair+ Plantarflexion (S1) 3+ Fair+ PT-OP-Q Treatments Start: 03/23/21 09:43 Freq: Status: Active Protocol: Document 06/01/21 10:32 DCW (Rec: 06/01/21 11:15 DCW [id number]) Cardio Equipment Elliptical Duration (Minutes) 5 Resistance 7 Other 0.26 miles Therapeutic Exercises Supine Exercises 1 Supine Exercise Name Pec stretch on full bolster Side bilateral Standing Exercises lateral band walk Resistance Blue Reps/Minutes 20' x4 Other Exercises hip flexor stretch Other Exercise Name Walking lunge Side bilateral Manual Therapy Treatment Soft Tissue Mobilization Thoracic Body Location Rhomboids, parascapulars Mobilization Type Strumming,Sustained Pressure, Trigger Point Release Body Position Supine PT-OP-T Assessment and Plan Start: 03/23/21 09:43 Freq: Status: Active Protocol: Document 06/01/21 10:32 DCW (Rec: 06/01/21 11:15 DCW [id number]) Physical Therapy Assessment Goals 3 Impairment difficulty walking >150ft Short Term Goal (STG) pt will AMB 500ft without AD I STG Duration 2 weeks Care Home Goal (LTG) Pt will AMB >1500ft I to return to PLOF LTG Duration 6 weeks 2 Impairment LE weakness Short Term Goal (STG) Pt will improve LE strength to complete 6 sit to stands in 30sec without UE STG Duration 2 weeks Care Home Goal (LTG) Pt will improve LE strength to complete 12 sit to stands in 30sec without UE to demonstrate improved community mobility. 1 Impairment Pt has no HEP Short Term Goal (STG) Pt will perform basic HEP for LE strenghtening, and postural control STG Duration Met Resident Services Manager Goal (LTG) Pt will be I with advanced HEP including pain management LTG Duration 6 weeks Assessment Summary Assessment Pt rather annoyed today with possibility that she may need further intervention due to her neck, but otherwise did well with all activities. Physical Therapy Plan Frequency and Duration Frequency of Treatment 1-2x/week Duration of Treatment 6weeks Plan of Care Start Date 05/06/21 Plan of Care End Date 06/17/21 Therapeutic Interventions Therapeutic Interventions Gait Training,Home Exercise Program,Joint Mobilizations, Manual Therapy,Neuromuscular Re-education,Self-Care/Home Management,Therapeutic Activities,Therapeutic Exercises Next Visit Focus/Plan Next Note Type Treatment Note Next Visit Plan Continue standing hip extension and core progression . Stretching, self STMs, TA HEP , open book last tx. POC: Progress if well tolerated to bike/stepper/ treadmill, increase glute strengthening and core strengthening
--- NOTE | 2021-06-03 11:16 | PT.OTN ---
Current Diagnoses Spinal stenosis, lumbar region with neurogenic claudication (06/03/21) Physical Therapy Treatment Note PT-OP-A Visit Information Start: 03/23/21 09:43 Freq: Status: Active Protocol: Document 06/03/21 10:35 DCW (Rec: 06/03/21 11:15 DCW [id number]) Out-Patient Physical Therapy Visit Information Visit Information Visit Type Discharge Summary Visit Start Time 10:35 Visit Stop Time 11:15 Total Visit Minutes 40 Visit Number 15 Number of MOLD HOLDER Visits 0 Evaluation Information Evaluation Date 03/23/21 Precautions Precautions spinal precautions lifted PT-OP-B Current Condition Start: 03/23/21 09:43 Freq: Status: Active Protocol: Document 03/23/21 09:44 OF (Rec: 03/23/21 10:05 OF [id number]) Current Condition History of Current Condition Onset Date 02/11/21 History of Current Condition pt has had chronic LBP, recently underwent lumbar fusion. Prior Treatments and Tests prior PT for lumbar/hip pain, OT for wrist pain Developmental History Developmental History pt states she had braces to address inversion/supination of Bilat feet when she was young Treatment Goals Patient/Caregiver Goals get back to driving 2-3hrs without stopping Prior Functional Status Baseline Function- ADL's Independent Baseline Function- Mobility Independent Baseline Function- Other Pt was I within community until last year. PT-OP-C Subjective Start: 03/23/21 09:43 Freq: Status: Active Protocol: Document 06/03/21 10:35 DCW (Rec: 06/03/21 11:15 DCW [id number]) OP-PT Subjective Patient Comments Patient Comments I'm just really tired. 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 OP Gait Assessment Gait Gait Assistance Required: Independent Distance (Feet) 150 Assistive Devices Assistive Device None Gait Deviations General Gait Pattern Decreased Stride Length Factors Limiting Gait Function Factors Limiting Gait Function Decreased Strength PT-OP-K Range of Motion Start: 03/23/21 09:43 Freq: Status: Active Protocol: Document 03/23/21 09:44 OF (Rec: 03/23/21 10:05 OF [id number]) Lumbar Spine Range of Motion Lumbar Spine Active Testing Position Standing Comments Pt demonstrates normal AROM standing PT-OP-M Strength Start: 03/23/21 09:43 Freq: Status: Active Protocol: Document 03/23/21 09:44 OF (Rec: 03/23/21 10:05 OF [id number]) Hip Strength Hip Manual Muscle Testing L Flexion (L2) 3+ Fair+ Extension (S1) 3+ Fair+ Abduction 3+ Fair+ R Flexion (L2) 3+ Fair+ Extension (S1) 3+ Fair+ Abduction 3+ Fair+ Knee Strength Knee Manual Muscle Testing L Flexion (S2) 3+ Fair+ Extension (L3) 3+ Fair+ R Flexion (S2) 3+ Fair+ Extension (L3) 3+ Fair+ Ankle/Foot Strength Ankle and Foot Manual Muscle Testing L Dorsiflexion (L4) 3+ Fair+ Plantarflexion (S1) 3+ Fair+ R Dorsiflexion (L4) 3+ Fair+ Plantarflexion (S1) 3+ Fair+ PT-OP-Q Treatments Start: 03/23/21 09:43 Freq: Status: Active Protocol: Document 06/03/21 10:35 DCW (Rec: 06/03/21 11:15 DCW [id number]) Cardio Equipment Elliptical Duration (Minutes) 5 Resistance 7 Other 0.26 miles Therapeutic Exercises Standing Exercises lateral band walk Resistance Blue Reps/Minutes 20' x4 Other Exercises hip flexor stretch Other Exercise Name Walking lunge Side bilateral Manual Therapy Treatment Soft Tissue Mobilization Thoracic Body Location Rhomboids, parascapulars Mobilization Type Strumming,Sustained Pressure, Trigger Point Release Body Position Supine PT-OP-T Assessment and Plan Start: 03/23/21 09:43 Freq: Status: Active Protocol: Document 06/03/21 10:35 DCW (Rec: 06/03/21 11:15 DCW [id number]) Physical Therapy Assessment Goals 3 Impairment difficulty walking >150ft Short Term Goal (STG) pt will AMB 500ft without AD I STG Duration Met Long-Term Goal (LTG) Pt will AMB >1500ft I to return to PLOF LTG Duration Met 2 Impairment LE weakness Short Term Goal (STG) Pt will improve LE strength to complete 6 sit to stands in 30sec without UE STG Duration Met Expenditure Requisition Clerk Goal (LTG) Pt will improve LE strength to complete 12 sit to stands in 30sec without UE to demonstrate improved community mobility. 1 Impairment Pt has no HEP Short Term Goal (STG) Pt will perform basic HEP for LE strengthening, and postural control STG Duration Met Long-Term Goal (LTG) Pt will be I with advanced HEP including pain management LTG Duration Met Assessment Summary Assessment Pt feeling confident with her post-op low back level of function. Feels appropriate to discharge at this time. Pt is , however, hoping to get a new referral in order to start PT on her neck, which has been giving her increased pain recently. Physical Therapy Plan Frequency and Duration Frequency of Treatment 1-2x/week Duration of Treatment 6weeks Plan of Care Start Date 05/06/21 Plan of Care End Date 06/17/21 Therapeutic Interventions Therapeutic Interventions Gait Training,Home Exercise Program,Joint Mobilizations, Manual Therapy,Neuromuscular Re-education,Self-Care/Home Management,Therapeutic Activities,Therapeutic Exercises Discharge Physical Therapy Discharge Reasons Goals Met Next Visit Focus/Plan Next Note Type Discharge Summary
== END 2021-09-05 13:37 ==
LOC: PHYS 10:30
PROVIDERS: Family Provider Student in an Organized Health Care Education/Training Program; PCP Student in an Organized Health Care Education/Training Program; Referring Provider Orthopaedic Surgery; Visit Provider Orthopaedic Surgery
DX: M48.062 Spinal stenosis, lumbar region with neurogenic claudication (principal)
CPT/HCPCS: 97110; 97140; 97161

== ENCOUNTER 2021-09-08 13:45 | Outpatient (RCR) | payer OTHER, SELFPAY ==
--- NOTE | 2021-06-15 15:08 | PT.OIE ---
Current Diagnoses Cervical disc disorder with radiculopathy, cervicothoracic region (06/15/21) Radiculopathy, cervical region (06/15/21) Cervicalgia (06/15/21) Pain in thoracic spine (06/15/21) Visit Care Team Role Provider Type Gilberto Iyer MD Attending Provider Physician Primary Care Provider Referring Provider Specialty: [facility] Address: [facility] [place], [facility] Email: [email or web address] Physical Therapy Initial Evaluation PT-OP-A Visit Information Start: 06/15/21 11:53 Freq: Status: Active Protocol: Document 06/15/21 10:30 DCW (Rec: 06/15/21 11:56 DCW [id number]) Out-Patient Physical Therapy Visit Information Visit Information Visit Type Initial Evaluation Visit Start Time 10:30 Visit Stop Time 11:15 Total Visit Minutes 45 Visit Number 1 Number of KELP OR SEAGRASS GATHERER Visits 0 Evaluation Information Evaluation Date 06/15/21 PT-OP-B Current Condition Start: 06/15/21 11:53 Freq: Status: Active Protocol: Document 06/15/21 10:30 DCW (Rec: 06/15/21 12:50 DCW [id number]) Current Condition History of Current Condition Onset Date 02/11/21 Current Complaints Radicular cervical pain, R UE History of Current Condition Pt is a 60 year old female very well known to this clinic returning with complaints of cervical and thoracic pain with radicular numbness and tingling along right UE. Pt has been treated at this clinic over the last few years for numerous physical deficits, most recently starting in March 2021 following lumbar fusion/lami on 02/11/21. Pt's low back has largely recovered, however pt does note that since surgery, she has been having increased cervical and thoracic pain, as well as radicular symptoms down her right arm. Pt did undergo a cervical MRI on 06/13, however results are not available at this time. 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 Prior Treatments and Tests Lumbar laminectomy 02/11/21 Cervical MRI 06/13/21 PT-OP-C Subjective Start: 06/15/21 11:53 Freq: Status: Active Protocol: Document 06/15/21 10:30 DCW (Rec: 06/15/21 12:50 DCW [id number]) OP-PT Subjective Patient Comments Patient Comments I guess there are some things I can't do, but really, it's more I just pay for it afterward. Patient Reported Progress Worse Patient Questionnaires Quick Dash- Upper Extremity Quick Dash UE Score 45% Quick Dash UE Impairment 40 to 59% Impaired (Score 40- 59) OP-PT Pain Assessment Pain Assessment Grid Paper Pain Assessment Grid Completed No PT-OP-F Manual Assessment Start: 06/15/21 11:53 Freq: Status: Active Protocol: Document 06/15/21 10:30 DCW (Rec: 06/15/21 14:47 DCW [id number]) Manual Assessments Soft Tissue Assessment Soft Tissue Mobility Assessment Moderate tone with tenderness to palpation 2/4: pain with wincing along r rhomboids, r subscap, r upper trap Joint Mobility Assessment Joint Mobility Assessment Mild R scapula winging, decreased p->a mobility of C3- 7 PT-OP-K Range of Motion Start: 06/15/21 11:53 Freq: Status: Active Protocol: Document 06/15/21 10:30 DCW (Rec: 06/15/21 14:47 DCW [id number]) Cervical Spine Range of Motion Cervical Spine Active Degrees Testing Position Sitting Flexion 55 Extension 50 Rotation Left 60 Rotation Right 55 Lateral Flexion Left 25 Lateral Flexion Right 25 ROM Limitations Soft Tissue Tightness,Bony Restriction,Muscle Tone,Pain PT-OP-L Special Tests Start: 06/15/21 11:53 Freq: Status: Active Protocol: Document 06/15/21 10:30 DCW (Rec: 06/15/21 14:47 DCW [id number]) Special Tests Cervical Spine Special Tests Slump Test Results Negative Traction Test Results Relief Spurling's Test Test Results Increased R radiculopathy Foraminal Compression Test Results Increased R radiculopathy PT-OP-M Strength Start: 06/15/21 11:53 Freq: Status: Active Protocol: Document 06/15/21 10:30 DCW (Rec: 06/15/21 14:47 DCW [id number]) Shoulder Strength Shoulder Manual Muscle Testing Right Flexion 3+ Fair+ Abduction (C5) 4+ Good+ Adduction 4+ Good+ External Rotation 4+ Good+ Internal Rotation 4+ Good+ Left Flexion 4+ Good+ Abduction (C5) 4+ Good+ Adduction 4+ Good+ External Rotation 4+ Good+ Internal Rotation 4+ Good+ PT-OP-T Assessment and Plan Start: 06/15/21 11:53 Freq: Status: Active Protocol: Document 06/15/21 10:30 [facility] (Rec: 06/15/21 15:08 [facility] [id number]) Physical Therapy Assessment Rehab Potential Rehabilitation Potential Good Evaluation Complexity Number of Personal Factors/Comorbidities 1-2 Number of Body Systems Impaired 4 or More Clinical Presentation at Evaluation Evolving Impairments Impairments Functional Activities, Functional Mobility,Pain,ROM, Soft Tissue Mobility,Strength, Tone Goals Three Impairment Pt experiencing numbness down upper and fore arm and into hand Buildings Painter Goal (LTG) Pt to report one full week without any radicular symptoms LTG Duration 08/15/21 Two Impairment Restricted cervical ROM Prison Goal (LTG) Pt to increased cervical lateral flexion to 40? to improve mobility with head movement when driving LTG Duration 08/15/21 One Impairment Pt does not have an appropriate home exercise program Short Term Goal (STG) Pt to be independent and compliant with an appropriate HEP STG Duration 07/15/21 Assessment Summary Assessment Pt presents with signs and symptoms consistent with cervical radiculopathy. Pt experiencing increased cervical and thoracic tone, numbness and tingling in her right arm, r scapular winging, and worsening symptoms with cervical compression. Pt should benefit from skilled therapy focusing on decreasing tone, improving cervical ROM, cervical traction, cervical strengthening, and STM to cervical/thoracic paraspinals. Pt unable to verbalize typical distribution of numbness, which makes it difficult to accurately diagnose affected nerve root, however from pt's subjective reports, possibly around C5-6. Physical Therapy Plan Frequency and Duration Frequency of Treatment 2x/Week Duration of Treatment Two months Plan of Care Start Date 06/15/21 Plan of Care End Date 08/15/21 Therapeutic Interventions Therapeutic Interventions Home Exercise Program,Joint Mobilizations,Manual Therapy, Neuromuscular Re-education, Patient/Caregiver Education, Self-Care/Home Management,Soft Tissue Mobilization, Therapeutic Activities, Therapeutic Exercises Modalities Cold Pack/Ice Massage,Electric Stimulation,Hot Packs, Traction- Mechanical, Ultrasound Next Visit Focus/Plan Next Note Type Treatment Note Next Visit Plan Trial mechanical traction, STM , UE strengthening
--- NOTE | 2021-06-15 15:08 | PT.OPPOC ---
Physical, Occupational & Speech Therapy At [facility] Current Diagnoses Cervical disc disorder with radiculopathy, cervicothoracic region (06/15/21) Radiculopathy, cervical region (06/15/21) Cervicalgia (06/15/21) Pain in thoracic spine (06/15/21) Visit Care Team Role Provider Type Gilberto Iyer MD Attending Provider Physician Primary Care Provider Referring Provider Specialty: [facility] Address: [facility] [place], [facility] Email: Plan Of Care PT-OP-T Assessment and Plan Start: 06/15/21 11:53 Freq: Status: Active Protocol: Document 06/15/21 10:30 DCW (Rec: 06/15/21 15:08 DCW [id number]) Physical Therapy Assessment Rehab Potential Rehabilitation Potential Good Evaluation Complexity Number of Personal Factors/Comorbidities 1-2 Number of Body Systems Impaired 4 or More Clinical Presentation at Evaluation Evolving Impairments Impairments Functional Activities, Functional Mobility,Pain,ROM, Soft Tissue Mobility,Strength, Tone Goals Three Impairment Pt experiencing numbness down upper and fore arm and into hand Copier Field Service Technician Goal (LTG) Pt to report one full week without any radicular symptoms LTG Duration 08/15/21 Two Impairment Restricted cervical ROM Mcfp Goal (LTG) Pt to increased cervical lateral flexion to 40? to improve mobility with head movement when driving LTG Duration 08/15/21 One Impairment Pt does not have an appropriate home exercise program Short Term Goal (STG) Pt to be independent and compliant with an appropriate HEP STG Duration 07/15/21 Assessment Summary Assessment Pt presents with signs and symptoms consistent with cervical radiculopathy. Pt experiencing increased cervical and thoracic tone, numbness and tingling in her right arm, r scapular winging, and worsening symptoms with cervical compression. Pt should benefit from skilled therapy focusing on decreasing tone, improving cervical ROM, cervical traction, cervical strengthening, and STM to cervical/thoracic paraspinals. Pt unable to verbalize typical distribution of numbness, which makes it difficult to accurately diagnose affected nerve root, however from pt's subjective reports, possibly around C5-6. Physical Therapy Plan Frequency and Duration Frequency of Treatment 2x/Week Duration of Treatment Two months Plan of Care Start Date 06/15/21 Plan of Care End Date 08/15/21 Therapeutic Interventions Therapeutic Interventions Home Exercise Program,Joint Mobilizations,Manual Therapy, Neuromuscular Re-education, Patient/Caregiver Education, Self-Care/Home Management,Soft Tissue Mobilization, Therapeutic Activities, Therapeutic Exercises Modalities Cold Pack/Ice Massage,Electric Stimulation,Hot Packs, Traction- Mechanical, Ultrasound Next Visit Focus/Plan Next Note Type Treatment Note Next Visit Plan Trial mechanical traction, STM , UE strengthening Plan of Care Dates Plan of Care Start Date 06/15/21 Plan of Care End Date 08/15/21 Electronically Signed by: Rudi Doyle, PT 06/15/21 [id number] Please Sign and Return: I have reviewed this Plan of Care and certify that the skilled therapy services above are required to meet the patient?s needs. Physician Signature Date Printed Name and Credentials Clinical Instructor Signature Printed Name and Credentials
--- NOTE | 2021-06-17 11:15 | PT.OTN ---
Current Diagnoses Cervical disc disorder with radiculopathy, cervicothoracic region (06/17/21) Radiculopathy, cervical region (06/17/21) Cervicalgia (06/17/21) Pain in thoracic spine (06/17/21) Physical Therapy Treatment Note PT-OP-A Visit Information Start: 06/15/21 11:53 Freq: Status: Active Protocol: Document 06/17/21 10:33 DCW (Rec: 06/17/21 11:14 DCW [id number]) Out-Patient Physical Therapy Visit Information Visit Information Visit Type Treatment Note Visit Start Time : Visit Stop Time 11:15 Total Visit Minutes 42 Visit Number 2 Number of NIGHT MONITOR Visits 0 Evaluation Information Evaluation Date 06/15/21 PT-OP-B Current Condition Start: 06/15/21 11:53 Freq: Status: Active Protocol: Document 06/15/21 10:30 DCW (Rec: 06/15/21 12:50 DCW [id number]) Current Condition History of Current Condition Onset Date 02/11/21 Current Complaints Radicular cervical pain, R UE History of Current Condition Pt is a 60 year old female very well known to this clinic returning with complaints of cervical and thoracic pain with radicular numbness and tingling along right UE. Pt has been treated at this clinic over the last few years for numerous physical deficits, most recently starting in March 2021 following lumbar fusion/lami on 02/11/21. Pt's low back has largely recovered, however pt does note that since surgery, she has been having increased cervical and thoracic pain, as well as radicular symptoms down her right arm. Pt did undergo a cervical MRI on 06/13, however results are not available at this time. 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 Prior Treatments and Tests Lumbar laminectomy 02/11/21 Cervical MRI 06/13/21 PT-OP-C Subjective Start: 06/15/21 11:53 Freq: Status: Active Protocol: Document 06/17/21 10:33 DCW (Rec: 06/17/21 11:15 DCW [id number]) OP-PT Subjective Patient Comments Patient Comments Pt reports she has been trying to pay better attention, and she thinks that when she is having radicular symptoms, she is experiencing numbness in her right thumb, index, and middle fingers PT-OP-F Manual Assessment Start: 06/15/21 11:53 Freq: Status: Active Protocol: Document 06/15/21 10:30 DCW (Rec: 06/15/21 14:47 DCW [id number]) Manual Assessments Soft Tissue Assessment Soft Tissue Mobility Assessment Moderate tone with tenderness to palpation 2/4: pain with wincing along r rhomboids, r subscap, r upper trap Joint Mobility Assessment Joint Mobility Assessment Mild R scapula winging, decreased p->a mobility of C3- 7 PT-OP-K Range of Motion Start: 06/15/21 11:53 Freq: Status: Active Protocol: Document 06/15/21 10:30 DCW (Rec: 06/15/21 14:47 DCW [id number]) Cervical Spine Range of Motion Cervical Spine Active Degrees Testing Position Sitting Flexion 55 Extension 50 Rotation Left 60 Rotation Right 55 Lateral Flexion Left 25 Lateral Flexion Right 25 ROM Limitations Soft Tissue Tightness,Bony Restriction,Muscle Tone,Pain PT-OP-L Special Tests Start: 06/15/21 11:53 Freq: Status: Active Protocol: Document 06/15/21 10:30 DCW (Rec: 06/15/21 14:47 DCW [id number]) Special Tests Cervical Spine Special Tests Slump Test Results Negative Traction Test Results Relief Spurling's Test Test Results Increased R radiculopathy Foraminal Compression Test Results Increased R radiculopathy PT-OP-M Strength Start: 06/15/21 11:53 Freq: Status: Active Protocol: Document 06/15/21 10:30 DCW (Rec: 06/15/21 14:47 DCW [id number]) Shoulder Strength Shoulder Manual Muscle Testing Right Flexion 3+ Fair+ Abduction (C5) 4+ Good+ Adduction 4+ Good+ External Rotation 4+ Good+ Internal Rotation 4+ Good+ Left Flexion 4+ Good+ Abduction (C5) 4+ Good+ Adduction 4+ Good+ External Rotation 4+ Good+ Internal Rotation 4+ Good+ PT-OP-Q Treatments Start: 06/15/21 11:53 Freq: Status: Active Protocol: Document 06/17/21 10:33 DCW (Rec: 06/17/21 11:14 DCW [id number]) Therapeutic Exercises Supine Exercises 1 Supine Exercise Name Serratus punch Side bilateral Manual Therapy Treatment Soft Tissue Mobilization 2 Body Location C/T paraspinals Mobilization Type Strumming,Sustained Pressure, Trigger Point Release Intensity/Depth Moderate Body Position Hooklying 1 Body Location Upper trap Mobilization Type Strumming,Sustained Pressure, Trigger Point Release Intensity/Depth Moderate Body Position Hooklying Joint Mobilizations 1 Joint Scapulothoracic Direction Lateral Grade III Body Position Hooklying Manual Traction Cervical Details Cervical traction Body Position Hooklying PT-OP-R Modalities Start: 06/15/21 11:53 Freq: Status: Active Protocol: Document 06/17/21 10:33 DCW (Rec: 06/17/21 11:14 DCW [id number]) Spinal Traction Traction Treatment Cervical Method Mechanical,Static Patient Position Hooklying Force Applied (Pounds) 17 Duration of Treatment (Minutes) 10 PT-OP-T Assessment and Plan Start: 06/15/21 11:53 Freq: Status: Active Protocol: Document 06/17/21 10:33 DCW (Rec: 06/17/21 11:14 DCW [id number]) Physical Therapy Assessment Impairments Impairments Functional Activities, Functional Mobility,Pain,ROM, Soft Tissue Mobility,Strength, Tone Goals Three Impairment Pt experiencing numbness down upper and fore arm and into hand Intermediate Goal (LTG) Pt to report one full week without any radicular symptoms LTG Duration 08/15/21 Two Impairment Restricted cervical ROM Intermediate Goal (LTG) Pt to increased cervical lateral flexion to 40? to improve mobility with head movement when driving LTG Duration 08/15/21 One Impairment Pt does not have an appropriate home exercise program Short Term Goal (STG) Pt to be independent and compliant with an appropriate HEP STG Duration 07/15/21 Assessment Summary Assessment Pt tolerated treatment well, felt the cervical traction today was very helpful. Physical Therapy Plan Frequency and Duration Frequency of Treatment 2x/Week Duration of Treatment Two months Plan of Care Start Date 06/15/21 Plan of Care End Date 08/15/21 Therapeutic Interventions Therapeutic Interventions Home Exercise Program,Joint Mobilizations,Manual Therapy, Neuromuscular Re-education, Patient/Caregiver Education, Self-Care/Home Management,Soft Tissue Mobilization, Therapeutic Activities, Therapeutic Exercises Modalities Cold Pack/Ice Massage,Electric Stimulation,Hot Packs, Traction- Mechanical, Ultrasound Next Visit Focus/Plan Next Note Type Treatment Note Next Visit Plan Trial mechanical traction, STM , UE strengthening
--- NOTE | 2021-06-22 11:12 | PT.OTN ---
Current Diagnoses Cervical disc disorder with radiculopathy, cervicothoracic region (06/22/21) Radiculopathy, cervical region (06/22/21) Cervicalgia (06/22/21) Pain in thoracic spine (06/22/21) Physical Therapy Treatment Note PT-OP-A Visit Information Start: 06/15/21 11:53 Freq: Status: Active Protocol: Document 06/22/21 10:35 DCW (Rec: 06/22/21 11:11 DCW [id number]) Out-Patient Physical Therapy Visit Information Visit Information Visit Type Treatment Note Visit Start Time 10:35 Visit Stop Time 11:15 Total Visit Minutes 40 Visit Number 3 Number of HEAD OF MARKETING ADOMETRY Visits 0 Evaluation Information Evaluation Date 06/15/21 PT-OP-B Current Condition Start: 06/15/21 11:53 Freq: Status: Active Protocol: Document 06/15/21 10:30 DCW (Rec: 06/15/21 12:50 DCW [id number]) Current Condition History of Current Condition Onset Date 02/11/21 Current Complaints Radicular cervical pain, R UE History of Current Condition Pt is a 60 year old female very well known to this clinic returning with complaints of cervical and thoracic pain with radicular numbness and tingling along right UE. Pt has been treated at this clinic over the last few years for numerous physical deficits, most recently starting in March 2021 following lumbar fusion/lami on 02/11/21. Pt's low back has largely recovered, however pt does note that since surgery, she has been having increased cervical and thoracic pain, as well as radicular symptoms down her right arm. Pt did undergo a cervical MRI on 06/13, however results are not available at this time. 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 Prior Treatments and Tests Lumbar laminectomy 02/11/21 Cervical MRI 06/13/21 PT-OP-C Subjective Start: 06/15/21 11:53 Freq: Status: Active Protocol: Document 06/22/21 10:35 DCW (Rec: 06/22/21 11:11 DCW [id number]) OP-PT Subjective Patient Comments Patient Comments I love that little gizmo, that traction thing. There has been much less pain and tingling since Sunday. PT-OP-F Manual Assessment Start: 06/15/21 11:53 Freq: Status: Active Protocol: Document 06/15/21 10:30 DCW (Rec: 06/15/21 14:47 DCW [id number]) Manual Assessments Soft Tissue Assessment Soft Tissue Mobility Assessment Moderate tone with tenderness to palpation 2/4: pain with wincing along r rhomboids, r subscap, r upper trap Joint Mobility Assessment Joint Mobility Assessment Mild R scapula winging, decreased p->a mobility of C3- 7 PT-OP-K Range of Motion Start: 06/15/21 11:53 Freq: Status: Active Protocol: Document 06/15/21 10:30 DCW (Rec: 06/15/21 14:47 DCW [id number]) Cervical Spine Range of Motion Cervical Spine Active Degrees Testing Position Sitting Flexion 55 Extension 50 Rotation Left 60 Rotation Right 55 Lateral Flexion Left 25 Lateral Flexion Right 25 ROM Limitations Soft Tissue Tightness,Bony Restriction,Muscle Tone,Pain PT-OP-L Special Tests Start: 06/15/21 11:53 Freq: Status: Active Protocol: Document 06/15/21 10:30 DCW (Rec: 06/15/21 14:47 DCW [id number]) Special Tests Cervical Spine Special Tests Slump Test Results Negative Traction Test Results Relief Spurling's Test Test Results Increased R radiculopathy Foraminal Compression Test Results Increased R radiculopathy PT-OP-M Strength Start: 06/15/21 11:53 Freq: Status: Active Protocol: Document 06/15/21 10:30 DCW (Rec: 06/15/21 14:47 DCW [id number]) Shoulder Strength Shoulder Manual Muscle Testing Right Flexion 3+ Fair+ Abduction (C5) 4+ Good+ Adduction 4+ Good+ External Rotation 4+ Good+ Internal Rotation 4+ Good+ Left Flexion 4+ Good+ Abduction (C5) 4+ Good+ Adduction 4+ Good+ External Rotation 4+ Good+ Internal Rotation 4+ Good+ PT-OP-Q Treatments Start: 06/15/21 11:53 Freq: Status: Active Protocol: Document 06/22/21 10:35 DCW (Rec: 06/22/21 11:11 DCW [id number]) Manual Therapy Treatment Soft Tissue Mobilization 2 Body Location C/T paraspinals Mobilization Type Strumming,Sustained Pressure, Trigger Point Release Intensity/Depth Moderate Body Position Hooklying 1 Body Location Upper trap Mobilization Type Strumming,Sustained Pressure, Trigger Point Release Intensity/Depth Moderate Body Position Hooklying Joint Mobilizations 1 Joint Scapulothoracic Direction Lateral Grade III Body Position Hooklying Manual Traction Cervical Details Cervical traction Body Position Hooklying PT-OP-R Modalities Start: 06/15/21 11:53 Freq: Status: Active Protocol: Document 06/22/21 10:35 DCW (Rec: 06/22/21 11:11 DCW [id number]) Spinal Traction Traction Treatment Cervical Method Mechanical,Static Patient Position Hooklying Force Applied (Pounds) 20 Duration of Treatment (Minutes) 10 PT-OP-T Assessment and Plan Start: 06/15/21 11:53 Freq: Status: Active Protocol: Document 06/22/21 10:35 DCW (Rec: 06/22/21 11:11 DCW [id number]) Physical Therapy Assessment Impairments Impairments Functional Activities, Functional Mobility,Pain,ROM, Soft Tissue Mobility,Strength, Tone Goals Three Impairment Pt experiencing numbness down upper and fore arm and into hand Manufacturing Plant Manager Goal (LTG) Pt to report one full week without any radicular symptoms LTG Duration 08/15/21 Two Impairment Restricted cervical ROM Penitentiary Goal (LTG) Pt to increased cervical lateral flexion to 40? to improve mobility with head movement when driving LTG Duration 08/15/21 One Impairment Pt does not have an appropriate home exercise program Short Term Goal (STG) Pt to be independent and compliant with an appropriate HEP STG Duration 07/15/21 Assessment Summary Assessment Pt was very happy with traction last week, repeat again today, see if pt sees continued progress with traction. Physical Therapy Plan Frequency and Duration Frequency of Treatment 2x/Week Duration of Treatment Two months Plan of Care Start Date 06/15/21 Plan of Care End Date 08/15/21 Therapeutic Interventions Therapeutic Interventions Home Exercise Program,Joint Mobilizations,Manual Therapy, Neuromuscular Re-education, Patient/Caregiver Education, Self-Care/Home Management,Soft Tissue Mobilization, Therapeutic Activities, Therapeutic Exercises Modalities Cold Pack/Ice Massage,Electric Stimulation,Hot Packs, Traction- Mechanical, Ultrasound Next Visit Focus/Plan Next Note Type Treatment Note Next Visit Plan Trial mechanical traction, STM , UE strengthening
--- NOTE | 2021-06-24 11:12 | PT.OTN ---
Current Diagnoses Cervical disc disorder with radiculopathy, cervicothoracic region (06/24/21) Radiculopathy, cervical region (06/24/21) Cervicalgia (06/24/21) Pain in thoracic spine (06/24/21) Physical Therapy Treatment Note PT-OP-A Visit Information Start: 06/15/21 11:53 Freq: Status: Active Protocol: Document 06/24/21 10:30 DCW (Rec: 06/24/21 11:12 DCW [id number]) Out-Patient Physical Therapy Visit Information Visit Information Visit Type Treatment Note Visit Start Time 10:30 Visit Stop Time 11:15 Total Visit Minutes 45 Visit Number 4 Number of SEWING DEMONSTRATOR Visits 0 Evaluation Information Evaluation Date 06/15/21 PT-OP-B Current Condition Start: 06/15/21 11:53 Freq: Status: Active Protocol: Document 06/15/21 10:30 DCW (Rec: 06/15/21 12:50 DCW [id number]) Current Condition History of Current Condition Onset Date 02/11/21 Current Complaints Radicular cervical pain, R UE History of Current Condition Pt is a 60 year old female very well known to this clinic returning with complaints of cervical and thoracic pain with radicular numbness and tingling along right UE. Pt has been treated at this clinic over the last few years for numerous physical deficits, most recently starting in March 2021 following lumbar fusion/lami on 02/11/21. Pt's low back has largely recovered, however pt does note that since surgery, she has been having increased cervical and thoracic pain, as well as radicular symptoms down her right arm. Pt did undergo a cervical MRI on 06/13, however results are not available at this time. 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 Prior Treatments and Tests Lumbar laminectomy 02/11/21 Cervical MRI 06/13/21 PT-OP-C Subjective Start: 06/15/21 11:53 Freq: Status: Active Protocol: Document 06/24/21 10:30 DCW (Rec: 06/24/21 11:12 DCW [id number]) OP-PT Subjective Patient Comments Patient Comments I want one, I want one of those traction machines. It helps so much. I've felt like myself since we started with it. PT-OP-F Manual Assessment Start: 06/15/21 11:53 Freq: Status: Active Protocol: Document 06/15/21 10:30 DCW (Rec: 06/15/21 14:47 DCW [id number]) Manual Assessments Soft Tissue Assessment Soft Tissue Mobility Assessment Moderate tone with tenderness to palpation 2/4: pain with wincing along r rhomboids, r subscap, r upper trap Joint Mobility Assessment Joint Mobility Assessment Mild R scapula winging, decreased p->a mobility of C3- 7 PT-OP-K Range of Motion Start: 06/15/21 11:53 Freq: Status: Active Protocol: Document 06/15/21 10:30 DCW (Rec: 06/15/21 14:47 DCW [id number]) Cervical Spine Range of Motion Cervical Spine Active Degrees Testing Position Sitting Flexion 55 Extension 50 Rotation Left 60 Rotation Right 55 Lateral Flexion Left 25 Lateral Flexion Right 25 ROM Limitations Soft Tissue Tightness,Bony Restriction,Muscle Tone,Pain PT-OP-L Special Tests Start: 06/15/21 11:53 Freq: Status: Active Protocol: Document 06/15/21 10:30 DCW (Rec: 06/15/21 14:47 DCW [id number]) Special Tests Cervical Spine Special Tests Slump Test Results Negative Traction Test Results Relief Spurling's Test Test Results Increased R radiculopathy Foraminal Compression Test Results Increased R radiculopathy PT-OP-M Strength Start: 06/15/21 11:53 Freq: Status: Active Protocol: Document 06/15/21 10:30 DCW (Rec: 06/15/21 14:47 DCW [id number]) Shoulder Strength Shoulder Manual Muscle Testing Right Flexion 3+ Fair+ Abduction (C5) 4+ Good+ Adduction 4+ Good+ External Rotation 4+ Good+ Internal Rotation 4+ Good+ Left Flexion 4+ Good+ Abduction (C5) 4+ Good+ Adduction 4+ Good+ External Rotation 4+ Good+ Internal Rotation 4+ Good+ PT-OP-Q Treatments Start: 06/15/21 11:53 Freq: Status: Active Protocol: Document 06/24/21 10:30 DCW (Rec: 06/24/21 11:12 DCW [id number]) Manual Therapy Treatment Soft Tissue Mobilization 2 Body Location C/T paraspinals Mobilization Type Strumming,Sustained Pressure, Trigger Point Release Intensity/Depth Moderate Body Position Hooklying 1 Body Location Upper trap Mobilization Type Strumming,Sustained Pressure, Trigger Point Release Intensity/Depth Moderate Body Position Hooklying Joint Mobilizations 1 Joint Scapulothoracic Direction Lateral Grade III Body Position Hooklying Manual Traction Cervical Details Cervical traction Body Position Hooklying PT-OP-R Modalities Start: 06/15/21 11:53 Freq: Status: Active Protocol: Document 06/24/21 10:30 DCW (Rec: 06/24/21 11:12 DCW [id number]) Spinal Traction Traction Treatment Cervical Method Mechanical,Static Patient Position Hooklying Force Applied (Pounds) 20 Duration of Treatment (Minutes) 10 PT-OP-T Assessment and Plan Start: 06/15/21 11:53 Freq: Status: Active Protocol: Document 06/24/21 10:30 DCW (Rec: 06/24/21 11:12 DCW [id number]) Physical Therapy Assessment Impairments Impairments Functional Activities, Functional Mobility,Pain,ROM, Soft Tissue Mobility,Strength, Tone Goals Three Impairment Pt experiencing numbness down upper and fore arm and into hand Usp Goal (LTG) Pt to report one full week without any radicular symptoms LTG Duration 08/15/21 Two Impairment Restricted cervical ROM Maintenance Service Supervisor Goal (LTG) Pt to increased cervical lateral flexion to 40? to improve mobility with head movement when driving LTG Duration 08/15/21 One Impairment Pt does not have an appropriate home exercise program Short Term Goal (STG) Pt to be independent and compliant with an appropriate HEP STG Duration 07/15/21 Assessment Summary Assessment Pt continues to exhibit great improvement with use of traction, will attempt to work toward getting a home traction unit. Physical Therapy Plan Frequency and Duration Frequency of Treatment 2x/Week Duration of Treatment Two months Plan of Care Start Date 06/15/21 Plan of Care End Date 08/15/21 Therapeutic Interventions Therapeutic Interventions Home Exercise Program,Joint Mobilizations,Manual Therapy, Neuromuscular Re-education, Patient/Caregiver Education, Self-Care/Home Management,Soft Tissue Mobilization, Therapeutic Activities, Therapeutic Exercises Modalities Cold Pack/Ice Massage,Electric Stimulation,Hot Packs, Traction- Mechanical, Ultrasound Next Visit Focus/Plan Next Note Type Treatment Note Next Visit Plan Trial mechanical traction, STM , UE strengthening
--- NOTE | 2021-07-01 11:55 | PT.OTN ---
Current Diagnoses Radiculopathy, cervical region (07/01/21) Cervicalgia (07/01/21) Pain in thoracic spine (07/01/21) Physical Therapy Treatment Note PT-OP-A Visit Information Start: 06/15/21 11:53 Freq: Status: Active Protocol: Document 07/01/21 11:17 DCW (Rec: 07/01/21 11:55 DCW [id number]) Out-Patient Physical Therapy Visit Information Visit Information Visit Type Treatment Note Visit Start Time 11:17 Visit Stop Time 12:00 Total Visit Minutes 43 Visit Number 5 Number of INSIDE SALES PERSON Visits 0 Evaluation Information Evaluation Date 06/15/21 PT-OP-B Current Condition Start: 06/15/21 11:53 Freq: Status: Active Protocol: Document 06/15/21 10:30 DCW (Rec: 06/15/21 12:50 DCW [id number]) Current Condition History of Current Condition Onset Date 02/11/21 Current Complaints Radicular cervical pain, R UE History of Current Condition Pt is a 60 year old female very well known to this clinic returning with complaints of cervical and thoracic pain with radicular numbness and tingling along right UE. Pt has been treated at this clinic over the last few years for numerous physical deficits, most recently starting in March 2021 following lumbar fusion/lami on 02/11/21. Pt's low back has largely recovered, however pt does note that since surgery, she has been having increased cervical and thoracic pain, as well as radicular symptoms down her right arm. Pt did undergo a cervical MRI on 06/13, however results are not available at this time. 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 Prior Treatments and Tests Lumbar laminectomy 02/11/21 Cervical MRI 06/13/21 PT-OP-C Subjective Start: 06/15/21 11:53 Freq: Status: Active Protocol: Document 07/01/21 11:17 DCW (Rec: 07/01/21 11:55 DCW [id number]) OP-PT Subjective Patient Comments Patient Comments I was able to read the MRI report, and what I was afraid was happening doesn't seem to be happening, which was that my artificial discs were slipping, so that's great news . PT-OP-F Manual Assessment Start: 06/15/21 11:53 Freq: Status: Active Protocol: Document 06/15/21 10:30 DCW (Rec: 06/15/21 14:47 DCW [id number]) Manual Assessments Soft Tissue Assessment Soft Tissue Mobility Assessment Moderate tone with tenderness to palpation 2/4: pain with wincing along r rhomboids, r subscap, r upper trap Joint Mobility Assessment Joint Mobility Assessment Mild R scapula winging, decreased p->a mobility of C3- 7 PT-OP-K Range of Motion Start: 06/15/21 11:53 Freq: Status: Active Protocol: Document 06/15/21 10:30 DCW (Rec: 06/15/21 14:47 DCW [id number]) Cervical Spine Range of Motion Cervical Spine Active Degrees Testing Position Sitting Flexion 55 Extension 50 Rotation Left 60 Rotation Right 55 Lateral Flexion Left 25 Lateral Flexion Right 25 ROM Limitations Soft Tissue Tightness,Bony Restriction,Muscle Tone,Pain PT-OP-L Special Tests Start: 06/15/21 11:53 Freq: Status: Active Protocol: Document 06/15/21 10:30 DCW (Rec: 06/15/21 14:47 DCW [id number]) Special Tests Cervical Spine Special Tests Slump Test Results Negative Traction Test Results Relief Spurling's Test Test Results Increased R radiculopathy Foraminal Compression Test Results Increased R radiculopathy PT-OP-M Strength Start: 06/15/21 11:53 Freq: Status: Active Protocol: Document 06/15/21 10:30 DCW (Rec: 06/15/21 14:47 DCW [id number]) Shoulder Strength Shoulder Manual Muscle Testing Right Flexion 3+ Fair+ Abduction (C5) 4+ Good+ Adduction 4+ Good+ External Rotation 4+ Good+ Internal Rotation 4+ Good+ Left Flexion 4+ Good+ Abduction (C5) 4+ Good+ Adduction 4+ Good+ External Rotation 4+ Good+ Internal Rotation 4+ Good+ PT-OP-Q Treatments Start: 06/15/21 11:53 Freq: Status: Active Protocol: Document 07/01/21 11:17 DCW (Rec: 07/01/21 11:55 DCW [id number]) Manual Therapy Treatment Soft Tissue Mobilization 2 Body Location C/T paraspinals Mobilization Type Strumming,Sustained Pressure, Trigger Point Release Intensity/Depth Moderate Body Position Hooklying 1 Body Location Upper trap Mobilization Type Strumming,Sustained Pressure, Trigger Point Release Intensity/Depth Moderate Body Position Hooklying Joint Mobilizations 1 Joint Scapulothoracic Direction Lateral Grade III Body Position Hooklying Manual Traction Cervical Details Cervical traction Body Position Hooklying PT-OP-R Modalities Start: 06/15/21 11:53 Freq: Status: Active Protocol: Document 07/01/21 11:17 DCW (Rec: 07/01/21 11:55 DCW [id number]) Spinal Traction Traction Treatment Cervical Method Mechanical,Static Patient Position Hooklying Force Applied (Pounds) 20 Duration of Treatment (Minutes) 10 PT-OP-T Assessment and Plan Start: 06/15/21 11:53 Freq: Status: Active Protocol: Document 07/01/21 11:17 DCW (Rec: 07/01/21 11:55 DCW [id number]) Physical Therapy Assessment Impairments Impairments Functional Activities, Functional Mobility,Pain,ROM, Soft Tissue Mobility,Strength, Tone Goals Three Impairment Pt experiencing numbness down upper and fore arm and into hand Cable Lacer Goal (LTG) Pt to report one full week without any radicular symptoms LTG Duration 08/15/21 Two Impairment Restricted cervical ROM Cable Lacer Goal (LTG) Pt to increased cervical lateral flexion to 40? to improve mobility with head movement when driving LTG Duration 08/15/21 One Impairment Pt does not have an appropriate home exercise program Short Term Goal (STG) Pt to be independent and compliant with an appropriate HEP STG Duration 07/15/21 Assessment Summary Assessment Pt still benefitting from traction, reports she typically gets 2-3 days of eliminated or at least significantly reduced UE numbness or tingling. Physical Therapy Plan Frequency and Duration Frequency of Treatment 2x/Week Duration of Treatment Two months Plan of Care Start Date 06/15/21 Plan of Care End Date 08/15/21 Therapeutic Interventions Therapeutic Interventions Home Exercise Program,Joint Mobilizations,Manual Therapy, Neuromuscular Re-education, Patient/Caregiver Education, Self-Care/Home Management,Soft Tissue Mobilization, Therapeutic Activities, Therapeutic Exercises Modalities Cold Pack/Ice Massage,Electric Stimulation,Hot Packs, Traction- Mechanical, Ultrasound Next Visit Focus/Plan Next Note Type Treatment Note Next Visit Plan Trial mechanical traction, STM , UE strengthening
--- NOTE | 2021-07-05 17:29 | PT.OTN ---
Current Diagnoses Radiculopathy, cervical region (07/05/21) Cervicalgia (07/05/21) Pain in thoracic spine (07/05/21) Physical Therapy Treatment Note PT-OP-A Visit Information Start: 06/15/21 11:53 Freq: Status: Active Protocol: Document 07/05/21 16:45 DCW (Rec: 07/05/21 17:28 DCW [id number]) Out-Patient Physical Therapy Visit Information Visit Information Visit Type Treatment Note Visit Start Time 16:45 Visit Stop Time 17:30 Total Visit Minutes 45 Visit Number 6 Number of BINGO CLERK Visits 0 Evaluation Information Evaluation Date 06/15/21 PT-OP-B Current Condition Start: 06/15/21 11:53 Freq: Status: Active Protocol: Document 06/15/21 10:30 DCW (Rec: 06/15/21 12:50 DCW [id number]) Current Condition History of Current Condition Onset Date 02/11/21 Current Complaints Radicular cervical pain, R UE History of Current Condition Pt is a 60 year old female very well known to this clinic returning with complaints of cervical and thoracic pain with radicular numbness and tingling along right UE. Pt has been treated at this clinic over the last few years for numerous physical deficits, most recently starting in March 2021 following lumbar fusion/lami on 02/11/21. Pt's low back has largely recovered, however pt does note that since surgery, she has been having increased cervical and thoracic pain, as well as radicular symptoms down her right arm. Pt did undergo a cervical MRI on 06/13, however results are not available at this time. 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 Prior Treatments and Tests Lumbar laminectomy 02/11/21 Cervical MRI 06/13/21 PT-OP-C Subjective Start: 06/15/21 11:53 Freq: Status: Active Protocol: Document 07/05/21 16:45 DCW (Rec: 07/05/21 17:28 DCW [id number]) OP-PT Subjective Patient Comments Patient Comments Pt has been feeling good enough that she went dancing Sunday more than I have danced in 15 years. PT-OP-F Manual Assessment Start: 06/15/21 11:53 Freq: Status: Active Protocol: Document 06/15/21 10:30 DCW (Rec: 06/15/21 14:47 DCW [id number]) Manual Assessments Soft Tissue Assessment Soft Tissue Mobility Assessment Moderate tone with tenderness to palpation 2/4: pain with wincing along r rhomboids, r subscap, r upper trap Joint Mobility Assessment Joint Mobility Assessment Mild R scapula winging, decreased p->a mobility of C3- 7 PT-OP-K Range of Motion Start: 06/15/21 11:53 Freq: Status: Active Protocol: Document 06/15/21 10:30 DCW (Rec: 06/15/21 14:47 DCW [id number]) Cervical Spine Range of Motion Cervical Spine Active Degrees Testing Position Sitting Flexion 55 Extension 50 Rotation Left 60 Rotation Right 55 Lateral Flexion Left 25 Lateral Flexion Right 25 ROM Limitations Soft Tissue Tightness,Bony Restriction,Muscle Tone,Pain PT-OP-L Special Tests Start: 06/15/21 11:53 Freq: Status: Active Protocol: Document 06/15/21 10:30 DCW (Rec: 06/15/21 14:47 DCW [id number]) Special Tests Cervical Spine Special Tests Slump Test Results Negative Traction Test Results Relief Spurling's Test Test Results Increased R radiculopathy Foraminal Compression Test Results Increased R radiculopathy PT-OP-M Strength Start: 06/15/21 11:53 Freq: Status: Active Protocol: Document 06/15/21 10:30 DCW (Rec: 06/15/21 14:47 DCW [id number]) Shoulder Strength Shoulder Manual Muscle Testing Right Flexion 3+ Fair+ Abduction (C5) 4+ Good+ Adduction 4+ Good+ External Rotation 4+ Good+ Internal Rotation 4+ Good+ Left Flexion 4+ Good+ Abduction (C5) 4+ Good+ Adduction 4+ Good+ External Rotation 4+ Good+ Internal Rotation 4+ Good+ PT-OP-Q Treatments Start: 06/15/21 11:53 Freq: Status: Active Protocol: Document 07/05/21 16:45 DCW (Rec: 07/05/21 17:28 DCW [id number]) Manual Therapy Treatment Soft Tissue Mobilization 2 Body Location C/T paraspinals Mobilization Type Strumming,Sustained Pressure, Trigger Point Release Intensity/Depth Moderate Body Position Hooklying 1 Body Location Upper trap Mobilization Type Strumming,Sustained Pressure, Trigger Point Release Intensity/Depth Moderate Body Position Hooklying Joint Mobilizations 1 Joint Scapulothoracic Direction Lateral Grade III Body Position Hooklying Manual Traction Cervical Details Cervical traction Body Position Hooklying PT-OP-R Modalities Start: 06/15/21 11:53 Freq: Status: Active Protocol: Document 07/05/21 16:45 DCW (Rec: 07/05/21 17:28 DCW [id number]) Spinal Traction Traction Treatment Cervical Method Mechanical,Static Patient Position Hooklying Force Applied (Pounds) 20 Duration of Treatment (Minutes) 10 PT-OP-T Assessment and Plan Start: 06/15/21 11:53 Freq: Status: Active Protocol: Document 07/05/21 16:45 DCW (Rec: 07/05/21 17:28 DCW [id number]) Physical Therapy Assessment Impairments Impairments Functional Activities, Functional Mobility,Pain,ROM, Soft Tissue Mobility,Strength, Tone Goals Three Impairment Pt experiencing numbness down upper and fore arm and into hand Dress Cutter Goal (LTG) Pt to report one full week without any radicular symptoms LTG Duration 08/15/21 Two Impairment Restricted cervical ROM Care Home Goal (LTG) Pt to increased cervical lateral flexion to 40? to improve mobility with head movement when driving LTG Duration 08/15/21 One Impairment Pt does not have an appropriate home exercise program Short Term Goal (STG) Pt to be independent and compliant with an appropriate HEP STG Duration 07/15/21 Assessment Summary Assessment Pt still showing great progress with neck pain and radicular symptoms. Physical Therapy Plan Frequency and Duration Frequency of Treatment 2x/Week Duration of Treatment Two months Plan of Care Start Date 06/15/21 Plan of Care End Date 08/15/21 Therapeutic Interventions Therapeutic Interventions Home Exercise Program,Joint Mobilizations,Manual Therapy, Neuromuscular Re-education, Patient/Caregiver Education, Self-Care/Home Management,Soft Tissue Mobilization, Therapeutic Activities, Therapeutic Exercises Modalities Cold Pack/Ice Massage,Electric Stimulation,Hot Packs, Traction- Mechanical, Ultrasound Next Visit Focus/Plan Next Note Type Treatment Note Next Visit Plan Trial mechanical traction, STM , UE strengthening
--- NOTE | 2021-07-07 11:57 | PT.OTN ---
Current Diagnoses Radiculopathy, cervical region (07/07/21) Cervicalgia (07/07/21) Pain in thoracic spine (07/07/21) Physical Therapy Treatment Note PT-OP-A Visit Information Start: 06/15/21 11:53 Freq: Status: Active Protocol: Document 07/07/21 11:20 DCW (Rec: 07/07/21 11:57 DCW [id number]) Out-Patient Physical Therapy Visit Information Visit Information Visit Type Treatment Note Visit Start Time 11:20 Visit Stop Time 12:00 Total Visit Minutes 40 Visit Number 7 Number of EQUIPMENT OPERATOR INTERMODAL YARD Visits 0 Evaluation Information Evaluation Date 06/15/21 PT-OP-B Current Condition Start: 06/15/21 11:53 Freq: Status: Active Protocol: Document 06/15/21 10:30 DCW (Rec: 06/15/21 12:50 DCW [id number]) Current Condition History of Current Condition Onset Date 02/11/21 Current Complaints Radicular cervical pain, R UE History of Current Condition Pt is a 60 year old female very well known to this clinic returning with complaints of cervical and thoracic pain with radicular numbness and tingling along right UE. Pt has been treated at this clinic over the last few years for numerous physical deficits, most recently starting in March 2021 following lumbar fusion/lami on 02/11/21. Pt's low back has largely recovered, however pt does note that since surgery, she has been having increased cervical and thoracic pain, as well as radicular symptoms down her right arm. Pt did undergo a cervical MRI on 06/13, however results are not available at this time. 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 Prior Treatments and Tests Lumbar laminectomy 02/11/21 Cervical MRI 06/13/21 PT-OP-C Subjective Start: 06/15/21 11:53 Freq: Status: Active Protocol: Document 07/07/21 11:20 DCW (Rec: 07/07/21 11:57 DCW [id number]) OP-PT Subjective Patient Comments Patient Comments It's been better. Every time we do that traction thing, I'm better for a few days. PT-OP-F Manual Assessment Start: 06/15/21 11:53 Freq: Status: Active Protocol: Document 06/15/21 10:30 DCW (Rec: 06/15/21 14:47 DCW [id number]) Manual Assessments Soft Tissue Assessment Soft Tissue Mobility Assessment Moderate tone with tenderness to palpation 2/4: pain with wincing along r rhomboids, r subscap, r upper trap Joint Mobility Assessment Joint Mobility Assessment Mild R scapula winging, decreased p->a mobility of C3- 7 PT-OP-K Range of Motion Start: 06/15/21 11:53 Freq: Status: Active Protocol: Document 06/15/21 10:30 DCW (Rec: 06/15/21 14:47 DCW [id number]) Cervical Spine Range of Motion Cervical Spine Active Degrees Testing Position Sitting Flexion 55 Extension 50 Rotation Left 60 Rotation Right 55 Lateral Flexion Left 25 Lateral Flexion Right 25 ROM Limitations Soft Tissue Tightness,Bony Restriction,Muscle Tone,Pain PT-OP-L Special Tests Start: 06/15/21 11:53 Freq: Status: Active Protocol: Document 06/15/21 10:30 DCW (Rec: 06/15/21 14:47 DCW [id number]) Special Tests Cervical Spine Special Tests Slump Test Results Negative Traction Test Results Relief Spurling's Test Test Results Increased R radiculopathy Foraminal Compression Test Results Increased R radiculopathy PT-OP-M Strength Start: 06/15/21 11:53 Freq: Status: Active Protocol: Document 06/15/21 10:30 DCW (Rec: 06/15/21 14:47 DCW [id number]) Shoulder Strength Shoulder Manual Muscle Testing Right Flexion 3+ Fair+ Abduction (C5) 4+ Good+ Adduction 4+ Good+ External Rotation 4+ Good+ Internal Rotation 4+ Good+ Left Flexion 4+ Good+ Abduction (C5) 4+ Good+ Adduction 4+ Good+ External Rotation 4+ Good+ Internal Rotation 4+ Good+ PT-OP-Q Treatments Start: 06/15/21 11:53 Freq: Status: Active Protocol: Document 07/07/21 11:20 DCW (Rec: 07/07/21 11:57 DCW [id number]) Manual Therapy Treatment Soft Tissue Mobilization 2 Body Location C/T paraspinals Mobilization Type Strumming,Sustained Pressure, Trigger Point Release Intensity/Depth Moderate Body Position Hooklying 1 Body Location Upper trap Mobilization Type Strumming,Sustained Pressure, Trigger Point Release Intensity/Depth Moderate Body Position Hooklying Joint Mobilizations 1 Joint Scapulothoracic Direction Lateral Grade III Body Position Hooklying Manual Traction Cervical Details Cervical traction Body Position Hooklying PT-OP-R Modalities Start: 06/15/21 11:53 Freq: Status: Active Protocol: Document 07/07/21 11:20 DCW (Rec: 07/07/21 11:57 DCW [id number]) Spinal Traction Traction Treatment Cervical Method Mechanical,Static Patient Position Hooklying Force Applied (Pounds) 20 Duration of Treatment (Minutes) 10 PT-OP-T Assessment and Plan Start: 06/15/21 11:53 Freq: Status: Active Protocol: Document 07/07/21 11:20 DCW (Rec: 07/07/21 11:57 DCW [id number]) Physical Therapy Assessment Impairments Impairments Functional Activities, Functional Mobility,Pain,ROM, Soft Tissue Mobility,Strength, Tone Goals Three Impairment Pt experiencing numbness down upper and fore arm and into hand Metal Fitters And Machinists Goal (LTG) Pt to report one full week without any radicular symptoms LTG Duration 08/15/21 Two Impairment Restricted cervical ROM Penitentiary Goal (LTG) Pt to increased cervical lateral flexion to 40? to improve mobility with head movement when driving LTG Duration 08/15/21 One Impairment Pt does not have an appropriate home exercise program Short Term Goal (STG) Pt to be independent and compliant with an appropriate HEP STG Duration 07/15/21 Assessment Summary Assessment Pt tolerating treatment very well, still waiting for contact from [employer] for home traction. Physical Therapy Plan Frequency and Duration Frequency of Treatment 2x/Week Duration of Treatment Two months Plan of Care Start Date 06/15/21 Plan of Care End Date 08/15/21 Therapeutic Interventions Therapeutic Interventions Home Exercise Program,Joint Mobilizations,Manual Therapy, Neuromuscular Re-education, Patient/Caregiver Education, Self-Care/Home Management,Soft Tissue Mobilization, Therapeutic Activities, Therapeutic Exercises Modalities Cold Pack/Ice Massage,Electric Stimulation,Hot Packs, Traction- Mechanical, Ultrasound Next Visit Focus/Plan Next Note Type Treatment Note Next Visit Plan Trial mechanical traction, STM , UE strengthening
--- NOTE | 2021-07-13 11:13 | PT.OTN ---
Current Diagnoses Radiculopathy, cervical region (07/13/21) Cervicalgia (07/13/21) Pain in thoracic spine (07/13/21) Physical Therapy Treatment Note PT-OP-A Visit Information Start: 06/15/21 11:53 Freq: Status: Active Protocol: Document 07/13/21 10:30 DCW (Rec: 07/13/21 11:12 DCW [id number]) Out-Patient Physical Therapy Visit Information Visit Information Visit Type Treatment Note Visit Start Time 10:30 Visit Stop Time 11:15 Total Visit Minutes 45 Visit Number 8 Number of TECHNICAL SYSTEMS ARCHITECT Visits 0 Evaluation Information Evaluation Date 06/15/21 PT-OP-B Current Condition Start: 06/15/21 11:53 Freq: Status: Active Protocol: Document 06/15/21 10:30 DCW (Rec: 06/15/21 12:50 DCW [id number]) Current Condition History of Current Condition Onset Date 02/11/21 Current Complaints Radicular cervical pain, R UE History of Current Condition Pt is a 60 year old female very well known to this clinic returning with complaints of cervical and thoracic pain with radicular numbness and tingling along right UE. Pt has been treated at this clinic over the last few years for numerous physical deficits, most recently starting in March 2021 following lumbar fusion/lami on 02/11/21. Pt's low back has largely recovered, however pt does note that since surgery, she has been having increased cervical and thoracic pain, as well as radicular symptoms down her right arm. Pt did undergo a cervical MRI on 06/13, however results are not available at this time. 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 Prior Treatments and Tests Lumbar laminectomy 02/11/21 Cervical MRI 06/13/21 PT-OP-C Subjective Start: 06/15/21 11:53 Freq: Status: Active Protocol: Document 07/13/21 10:30 DCW (Rec: 07/13/21 11:12 DCW [id number]) OP-PT Subjective Patient Comments Patient Comments Pt spoke with her surgeon, reports she was told that if traction is helping, there is no need for surgery, which pt is very happy about. PT-OP-F Manual Assessment Start: 06/15/21 11:53 Freq: Status: Active Protocol: Document 06/15/21 10:30 DCW (Rec: 06/15/21 14:47 DCW [id number]) Manual Assessments Soft Tissue Assessment Soft Tissue Mobility Assessment Moderate tone with tenderness to palpation 2/4: pain with wincing along r rhomboids, r subscap, r upper trap Joint Mobility Assessment Joint Mobility Assessment Mild R scapula winging, decreased p->a mobility of C3- 7 PT-OP-K Range of Motion Start: 06/15/21 11:53 Freq: Status: Active Protocol: Document 06/15/21 10:30 DCW (Rec: 06/15/21 14:47 DCW [id number]) Cervical Spine Range of Motion Cervical Spine Active Degrees Testing Position Sitting Flexion 55 Extension 50 Rotation Left 60 Rotation Right 55 Lateral Flexion Left 25 Lateral Flexion Right 25 ROM Limitations Soft Tissue Tightness,Bony Restriction,Muscle Tone,Pain PT-OP-L Special Tests Start: 06/15/21 11:53 Freq: Status: Active Protocol: Document 06/15/21 10:30 DCW (Rec: 06/15/21 14:47 DCW [id number]) Special Tests Cervical Spine Special Tests Slump Test Results Negative Traction Test Results Relief Spurling's Test Test Results Increased R radiculopathy Foraminal Compression Test Results Increased R radiculopathy PT-OP-M Strength Start: 06/15/21 11:53 Freq: Status: Active Protocol: Document 06/15/21 10:30 DCW (Rec: 06/15/21 14:47 DCW [id number]) Shoulder Strength Shoulder Manual Muscle Testing Right Flexion 3+ Fair+ Abduction (C5) 4+ Good+ Adduction 4+ Good+ External Rotation 4+ Good+ Internal Rotation 4+ Good+ Left Flexion 4+ Good+ Abduction (C5) 4+ Good+ Adduction 4+ Good+ External Rotation 4+ Good+ Internal Rotation 4+ Good+ PT-OP-Q Treatments Start: 06/15/21 11:53 Freq: Status: Active Protocol: Document 07/13/21 10:30 DCW (Rec: 07/13/21 11:12 DCW [id number]) Manual Therapy Treatment Soft Tissue Mobilization 2 Body Location C/T paraspinals Mobilization Type Strumming,Sustained Pressure, Trigger Point Release Intensity/Depth Moderate Body Position Hooklying 1 Body Location Upper trap Mobilization Type Strumming,Sustained Pressure, Trigger Point Release Intensity/Depth Moderate Body Position Hooklying Joint Mobilizations 1 Joint Scapulothoracic Direction Lateral Grade III Body Position Hooklying Manual Traction Cervical Details Cervical traction Body Position Hooklying PT-OP-R Modalities Start: 06/15/21 11:53 Freq: Status: Active Protocol: Document 07/13/21 10:30 DCW (Rec: 07/13/21 11:12 DCW [id number]) Spinal Traction Traction Treatment Cervical Method Mechanical,Static Patient Position Hooklying Force Applied (Pounds) 20 Duration of Treatment (Minutes) 10 PT-OP-T Assessment and Plan Start: 06/15/21 11:53 Freq: Status: Active Protocol: Document 07/13/21 10:30 DCW (Rec: 07/13/21 11:12 DCW [id number]) Physical Therapy Assessment Impairments Impairments Functional Activities, Functional Mobility,Pain,ROM, Soft Tissue Mobility,Strength, Tone Goals Three Impairment Pt experiencing numbness down upper and fore arm and into hand Producer Assistant Goal (LTG) Pt to report one full week without any radicular symptoms LTG Duration 08/15/21 Two Impairment Restricted cervical ROM Producer Assistant Goal (LTG) Pt to increased cervical lateral flexion to 40? to improve mobility with head movement when driving LTG Duration 08/15/21 One Impairment Pt does not have an appropriate home exercise program Short Term Goal (STG) Pt to be independent and compliant with an appropriate HEP STG Duration 07/15/21 Assessment Summary Assessment Pt doing well today, much less tenderness and tone along cervical musculature. Physical Therapy Plan Frequency and Duration Frequency of Treatment 2x/Week Duration of Treatment Two months Plan of Care Start Date 06/15/21 Plan of Care End Date 08/15/21 Therapeutic Interventions Therapeutic Interventions Home Exercise Program,Joint Mobilizations,Manual Therapy, Neuromuscular Re-education, Patient/Caregiver Education, Self-Care/Home Management,Soft Tissue Mobilization, Therapeutic Activities, Therapeutic Exercises Modalities Cold Pack/Ice Massage,Electric Stimulation,Hot Packs, Traction- Mechanical, Ultrasound Next Visit Focus/Plan Next Note Type Treatment Note Next Visit Plan Trial mechanical traction, STM , UE strengthening
--- NOTE | 2021-07-15 11:10 | PT.OTN ---
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 Pt has been treated at this clinic over the last few years for numerous physical deficits, most recently starting in March 2021 following lumbar fusion/lami on 02/11/21. Pt's low back has largely recovered, however pt does note that since surgery, she has been having increased cervical and thoracic pain, as well as radicular symptoms down her right arm. Pt did undergo a cervical MRI on 06/13, however results are not available at this time. 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 Prior Treatments and Tests Lumbar laminectomy 02/11/21 Cervical MRI 06/13/21 PT-OP-C Subjective Start: 06/15/21 11:53 Freq: Status: Active Protocol: Document 07/15/21 10:30 DCW (Rec: 07/15/21 11:10 DCW [id number]) OP-PT Subjective Patient Comments Patient Comments Pt notes she is feeling pretty good today. PT-OP-F Manual Assessment Start: 06/15/21 11:53 Freq: Status: Active Protocol: Document 06/15/21 10:30 DCW (Rec: 06/15/21 14:47 DCW [id number]) Manual Assessments Soft Tissue Assessment Soft Tissue Mobility Assessment Moderate tone with tenderness to palpation 2/4: pain with wincing along r rhomboids, r subscap, r upper trap Joint Mobility Assessment Joint Mobility Assessment Mild R scapula winging, decreased p->a mobility of C3- 7 PT-OP-K Range of Motion Start: 06/15/21 11:53 Freq: Status: Active Protocol: Document 06/15/21 10:30 DCW (Rec: 06/15/21 14:47 DCW [id number]) Cervical Spine Range of Motion Cervical Spine Active Degrees Testing Position Sitting Flexion 55 Extension 50 Rotation Left 60 Rotation Right 55 Lateral Flexion Left 25 Lateral Flexion Right 25 ROM Limitations Soft Tissue Tightness,Bony Restriction,Muscle Tone,Pain PT-OP-L Special Tests Start: 06/15/21 11:53 Freq: Status: Active Protocol: Document 06/15/21 10:30 DCW (Rec: 06/15/21 14:47 DCW [id number]) Special Tests Cervical Spine Special Tests Slump Test Results Negative Traction Test Results Relief Spurling's Test Test Results Increased R radiculopathy Foraminal Compression Test Results Increased R radiculopathy PT-OP-M Strength Start: 06/15/21 11:53 Freq: Status: Active Protocol: Document 06/15/21 10:30 DCW (Rec: 06/15/21 14:47 DCW [id number]) Shoulder Strength Shoulder Manual Muscle Testing Right Flexion 3+ Fair+ Abduction (C5) 4+ Good+ Adduction 4+ Good+ External Rotation 4+ Good+ Internal Rotation 4+ Good+ Left Flexion 4+ Good+ Abduction (C5) 4+ Good+ Adduction 4+ Good+ External Rotation 4+ Good+ Internal Rotation 4+ Good+ PT-OP-Q Treatments Start: 06/15/21 11:53 Freq: Status: Active Protocol: Document 07/15/21 10:30 DCW (Rec: 07/15/21 11:10 DCW [id number]) Manual Therapy Treatment Soft Tissue Mobilization 2 Body Location C/T paraspinals Mobilization Type Strumming,Sustained Pressure, Trigger Point Release Intensity/Depth Moderate Body Position Hooklying 1 Body Location Upper trap Mobilization Type Strumming,Sustained Pressure, Trigger Point Release Intensity/Depth Moderate Body Position Hooklying Joint Mobilizations 1 Joint Scapulothoracic Direction Lateral Grade III Body Position Hooklying Manual Traction Cervical Details Cervical traction Body Position Hooklying PT-OP-R Modalities Start: 06/15/21 11:53 Freq: Status: Active Protocol: Document 07/15/21 10:30 DCW (Rec: 07/15/21 11:10 DCW [id number]) Spinal Traction Traction Treatment Cervical Method Mechanical,Static Patient Position Hooklying Force Applied (Pounds) 20 Duration of Treatment (Minutes) 10 PT-OP-T Assessment and Plan Start: 06/15/21 11:53 Freq: Status: Active Protocol: Document 07/15/21 10:30 DCW (Rec: 07/15/21 11:10 DCW [id number]) Physical Therapy Assessment Impairments Impairments Functional Activities, Functional Mobility,Pain,ROM, Soft Tissue Mobility,Strength, Tone Goals Three Impairment Pt experiencing numbness down upper and fore arm and into hand X Ray Developer Goal (LTG) Pt to report one full week without any radicular symptoms LTG Duration 08/15/21 Two Impairment Restricted cervical ROM X Ray Developer Goal (LTG) Pt to increased cervical lateral flexion to 40? to improve mobility with head movement when driving LTG Duration 08/15/21 One Impairment Pt does not have an appropriate home exercise program Short Term Goal (STG) Pt to be independent and compliant with an appropriate HEP STG Duration 07/15/21 Assessment Summary Assessment Pt continues to progress, less frequent and less severe discomfort in neck and mid back. Physical Therapy Plan Frequency and Duration Frequency of Treatment 2x/Week Duration of Treatment Two months Plan of Care Start Date 06/15/21 Plan of Care End Date 08/15/21 Therapeutic Interventions Therapeutic Interventions Home Exercise Program,Joint Mobilizations,Manual Therapy, Neuromuscular Re-education, Patient/Caregiver Education, Self-Care/Home Management,Soft Tissue Mobilization, Therapeutic Activities, Therapeutic Exercises Modalities Cold Pack/Ice Massage,Electric Stimulation,Hot Packs, Traction- Mechanical, Ultrasound Next Visit Focus/Plan Next Note Type Treatment Note Next Visit Plan Trial mechanical traction, STM , UE strengthening
--- NOTE | 2021-07-20 11:08 | PT.OTN ---
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 Pt has been treated at this clinic over the last few years for numerous physical deficits, most recently starting in March 2021 following lumbar fusion/lami on 02/11/21. Pt's low back has largely recovered, however pt does note that since surgery, she has been having increased cervical and thoracic pain, as well as radicular symptoms down her right arm. Pt did undergo a cervical MRI on 06/13, however results are not available at this time. 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 Prior Treatments and Tests Lumbar laminectomy 02/11/21 Cervical MRI 06/13/21 PT-OP-C Subjective Start: 06/15/21 11:53 Freq: Status: Active Protocol: Document 07/20/21 10:33 DCW (Rec: 07/20/21 11:07 DCW [id number]) OP-PT Subjective Patient Comments Patient Comments I'm just tired. My back is tired, I did too much this weekend, worked too many hours . Theres been more numbness and tingling today, which had been better. PT-OP-F Manual Assessment Start: 06/15/21 11:53 Freq: Status: Active Protocol: Document 06/15/21 10:30 DCW (Rec: 06/15/21 14:47 DCW [id number]) Manual Assessments Soft Tissue Assessment Soft Tissue Mobility Assessment Moderate tone with tenderness to palpation 2/4: pain with wincing along r rhomboids, r subscap, r upper trap Joint Mobility Assessment Joint Mobility Assessment Mild R scapula winging, decreased p->a mobility of C3- 7 PT-OP-K Range of Motion Start: 06/15/21 11:53 Freq: Status: Active Protocol: Document 06/15/21 10:30 DCW (Rec: 06/15/21 14:47 DCW [id number]) Cervical Spine Range of Motion Cervical Spine Active Degrees Testing Position Sitting Flexion 55 Extension 50 Rotation Left 60 Rotation Right 55 Lateral Flexion Left 25 Lateral Flexion Right 25 ROM Limitations Soft Tissue Tightness,Bony Restriction,Muscle Tone,Pain PT-OP-L Special Tests Start: 06/15/21 11:53 Freq: Status: Active Protocol: Document 06/15/21 10:30 DCW (Rec: 06/15/21 14:47 DCW [id number]) Special Tests Cervical Spine Special Tests Slump Test Results Negative Traction Test Results Relief Spurling's Test Test Results Increased R radiculopathy Foraminal Compression Test Results Increased R radiculopathy PT-OP-M Strength Start: 06/15/21 11:53 Freq: Status: Active Protocol: Document 06/15/21 10:30 DCW (Rec: 06/15/21 14:47 DCW [id number]) Shoulder Strength Shoulder Manual Muscle Testing Right Flexion 3+ Fair+ Abduction (C5) 4+ Good+ Adduction 4+ Good+ External Rotation 4+ Good+ Internal Rotation 4+ Good+ Left Flexion 4+ Good+ Abduction (C5) 4+ Good+ Adduction 4+ Good+ External Rotation 4+ Good+ Internal Rotation 4+ Good+ PT-OP-Q Treatments Start: 06/15/21 11:53 Freq: Status: Active Protocol: Document 07/20/21 10:33 DCW (Rec: 07/20/21 11:07 DCW [id number]) Manual Therapy Treatment Soft Tissue Mobilization 2 Body Location C/T paraspinals Mobilization Type Strumming,Sustained Pressure, Trigger Point Release Intensity/Depth Moderate Body Position Hooklying 1 Body Location Upper trap Mobilization Type Strumming,Sustained Pressure, Trigger Point Release Intensity/Depth Moderate Body Position Hooklying Joint Mobilizations 1 Joint Scapulothoracic Direction Lateral Grade III Body Position Hooklying Manual Traction Cervical Details Cervical traction Body Position Hooklying PT-OP-R Modalities Start: 06/15/21 11:53 Freq: Status: Active Protocol: Document 07/20/21 10:33 DCW (Rec: 07/20/21 11:07 DCW [id number]) Spinal Traction Traction Treatment Cervical Method Mechanical,Static Patient Position Hooklying Force Applied (Pounds) 20 Duration of Treatment (Minutes) 10 PT-OP-T Assessment and Plan Start: 06/15/21 11:53 Freq: Status: Active Protocol: Document 07/20/21 10:33 DCW (Rec: 07/20/21 11:07 DCW [id number]) Physical Therapy Assessment Impairments Impairments Functional Activities, Functional Mobility,Pain,ROM, Soft Tissue Mobility,Strength, Tone Goals Three Impairment Pt experiencing numbness down upper and fore arm and into hand Snf Goal (LTG) Pt to report one full week without any radicular symptoms LTG Duration 08/15/21 Two Impairment Restricted cervical ROM Coupler Goal (LTG) Pt to increased cervical lateral flexion to 40? to improve mobility with head movement when driving LTG Duration 08/15/21 One Impairment Pt does not have an appropriate home exercise program Short Term Goal (STG) Pt to be independent and compliant with an appropriate HEP STG Duration 07/15/21 Assessment Summary Assessment Continue to wait on home traction unit, will start to focus on independent stretching program. Physical Therapy Plan Frequency and Duration Frequency of Treatment 2x/Week Duration of Treatment Two months Plan of Care Start Date 06/15/21 Plan of Care End Date 08/15/21 Therapeutic Interventions Therapeutic Interventions Home Exercise Program,Joint Mobilizations,Manual Therapy, Neuromuscular Re-education, Patient/Caregiver Education, Self-Care/Home Management,Soft Tissue Mobilization, Therapeutic Activities, Therapeutic Exercises Modalities Cold Pack/Ice Massage,Electric Stimulation,Hot Packs, Traction- Mechanical, Ultrasound Next Visit Focus/Plan Next Note Type Treatment Note Next Visit Plan Trial mechanical traction, STM , UE strengthening
--- NOTE | 2021-07-22 11:08 | PT.OTN ---
Current Diagnoses Radiculopathy, cervical region (07/22/21) Cervicalgia (07/22/21) Pain in thoracic spine (07/22/21) Physical Therapy Treatment Note PT-OP-A Visit Information Start: 06/15/21 11:53 Freq: Status: Active Protocol: Document 07/22/21 10:32 DCW (Rec: 07/22/21 11:08 DCW [id number]) Out-Patient Physical Therapy Visit Information Visit Information Visit Type Treatment Note Visit Start Time 10:32 Visit Stop Time 11:15 Total Visit Minutes 43 Visit Number 11 Number of FILING MACHINE OPERATOR Visits 0 Evaluation Information Evaluation Date 06/15/21 PT-OP-B Current Condition Start: 06/15/21 11:53 Freq: Status: Active Protocol: Document 06/15/21 10:30 DCW (Rec: 06/15/21 12:50 DCW [id number]) Current Condition History of Current Condition Onset Date 02/11/21 Current Complaints Radicular cervical pain, R UE History of Current Condition Pt is a 60 year old female very well known to this clinic returning with complaints of cervical and thoracic pain with radicular numbness and tingling along right UE. Pt has been treated at this clinic over the last few years for numerous physical deficits, most recently starting in March 2021 following lumbar fusion/lami on 02/11/21. Pt's low back has largely recovered, however pt does note that since surgery, she has been having increased cervical and thoracic pain, as well as radicular symptoms down her right arm. Pt did undergo a cervical MRI on 06/13, however results are not available at this time. 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 Prior Treatments and Tests Lumbar laminectomy 02/11/21 Cervical MRI 06/13/21 PT-OP-C Subjective Start: 06/15/21 11:53 Freq: Status: Active Protocol: Document 07/22/21 10:32 DCW (Rec: 07/22/21 11:08 DCW [id number]) OP-PT Subjective Patient Comments Patient Comments Pt feeling pretty good overall , had a fun trip yesterday and wasn't really limited by pain . PT-OP-F Manual Assessment Start: 06/15/21 11:53 Freq: Status: Active Protocol: Document 06/15/21 10:30 DCW (Rec: 06/15/21 14:47 DCW [id number]) Manual Assessments Soft Tissue Assessment Soft Tissue Mobility Assessment Moderate tone with tenderness to palpation 2/4: pain with wincing along r rhomboids, r subscap, r upper trap Joint Mobility Assessment Joint Mobility Assessment Mild R scapula winging, decreased p->a mobility of C3- 7 PT-OP-K Range of Motion Start: 06/15/21 11:53 Freq: Status: Active Protocol: Document 06/15/21 10:30 DCW (Rec: 06/15/21 14:47 DCW [id number]) Cervical Spine Range of Motion Cervical Spine Active Degrees Testing Position Sitting Flexion 55 Extension 50 Rotation Left 60 Rotation Right 55 Lateral Flexion Left 25 Lateral Flexion Right 25 ROM Limitations Soft Tissue Tightness,Bony Restriction,Muscle Tone,Pain PT-OP-L Special Tests Start: 06/15/21 11:53 Freq: Status: Active Protocol: Document 06/15/21 10:30 DCW (Rec: 06/15/21 14:47 DCW [id number]) Special Tests Cervical Spine Special Tests Slump Test Results Negative Traction Test Results Relief Spurling's Test Test Results Increased R radiculopathy Foraminal Compression Test Results Increased R radiculopathy PT-OP-M Strength Start: 06/15/21 11:53 Freq: Status: Active Protocol: Document 06/15/21 10:30 DCW (Rec: 06/15/21 14:47 DCW [id number]) Shoulder Strength Shoulder Manual Muscle Testing Right Flexion 3+ Fair+ Abduction (C5) 4+ Good+ Adduction 4+ Good+ External Rotation 4+ Good+ Internal Rotation 4+ Good+ Left Flexion 4+ Good+ Abduction (C5) 4+ Good+ Adduction 4+ Good+ External Rotation 4+ Good+ Internal Rotation 4+ Good+ PT-OP-Q Treatments Start: 06/15/21 11:53 Freq: Status: Active Protocol: Document 07/22/21 10:32 DCW (Rec: 07/22/21 11:08 DCW [id number]) Manual Therapy Treatment Soft Tissue Mobilization 2 Body Location C/T paraspinals Mobilization Type Strumming,Sustained Pressure, Trigger Point Release Intensity/Depth Moderate Body Position Hooklying 1 Body Location Upper trap Mobilization Type Strumming,Sustained Pressure, Trigger Point Release Intensity/Depth Moderate Body Position Hooklying Joint Mobilizations 1 Joint Scapulothoracic Direction Lateral Grade III Body Position Hooklying Manual Traction Cervical Details Cervical traction Body Position Hooklying PT-OP-R Modalities Start: 06/15/21 11:53 Freq: Status: Active Protocol: Document 07/22/21 10:32 DCW (Rec: 07/22/21 11:08 DCW [id number]) Spinal Traction Traction Treatment Cervical Method Mechanical,Static Patient Position Hooklying Force Applied (Pounds) 20 Duration of Treatment (Minutes) 10 PT-OP-T Assessment and Plan Start: 06/15/21 11:53 Freq: Status: Active Protocol: Document 07/22/21 10:32 DCW (Rec: 07/22/21 11:08 DCW [id number]) Physical Therapy Assessment Impairments Impairments Functional Activities, Functional Mobility,Pain,ROM, Soft Tissue Mobility,Strength, Tone Goals Three Impairment Pt experiencing numbness down upper and fore arm and into hand [facility] Goal (LTG) Pt to report one full week without any radicular symptoms LTG Duration 08/15/21 Two Impairment Restricted cervical ROM [facility] Goal (LTG) Pt to increased cervical lateral flexion to 40? to improve mobility with head movement when driving LTG Duration 08/15/21 One Impairment Pt does not have an appropriate home exercise program Short Term Goal (STG) Pt to be independent and compliant with an appropriate HEP STG Duration 07/15/21 Assessment Summary Assessment Pt tone significantly improved overall along [place], [place], and levator bilaterally. Physical Therapy Plan Frequency and Duration Frequency of Treatment 2x/Week Duration of Treatment Two months Plan of Care Start Date 06/15/21 Plan of Care End Date 08/15/21 Therapeutic Interventions Therapeutic Interventions Home Exercise Program,Joint Mobilizations,Manual Therapy, Neuromuscular Re-education, Patient/Caregiver Education, Self-Care/Home Management,Soft Tissue Mobilization, Therapeutic Activities, Therapeutic Exercises Modalities Cold Pack/Ice Massage,Electric Stimulation,Hot Packs, Traction- Mechanical, Ultrasound Next Visit Focus/Plan Next Note Type Treatment Note Next Visit Plan Trial mechanical traction, STM , UE strengthening
--- NOTE | 2021-07-27 11:15 | PT.OTN ---
Current Diagnoses Radiculopathy, cervical region (07/27/21) Cervicalgia (07/27/21) Pain in thoracic spine (07/27/21) Physical Therapy Treatment Note PT-OP-A Visit Information Start: 06/15/21 11:53 Freq: Status: Active Protocol: Document 07/27/21 10:35 DCW (Rec: 07/27/21 11:15 DCW [id number]) Out-Patient Physical Therapy Visit Information Visit Information Visit Type Treatment Note Visit Start Time 10:35 Visit Stop Time 11:15 Total Visit Minutes 40 Visit Number 12 Number of LEAVE COORDINATOR Visits 0 Evaluation Information Evaluation Date 06/15/21 PT-OP-B Current Condition Start: 06/15/21 11:53 Freq: Status: Active Protocol: Document 06/15/21 10:30 DCW (Rec: 06/15/21 12:50 DCW [id number]) Current Condition History of Current Condition Onset Date 02/11/21 Current Complaints Radicular cervical pain, R UE History of Current Condition Pt is a 60 year old female very well known to this clinic returning with complaints of cervical and thoracic pain with radicular numbness and tingling along right UE. Pt has been treated at this clinic over the last few years for numerous physical deficits, most recently starting in March 2021 following lumbar fusion/lami on 02/11/21. Pt's low back has largely recovered, however pt does note that since surgery, she has been having increased cervical and thoracic pain, as well as radicular symptoms down her right arm. Pt did undergo a cervical MRI on 06/13, however results are not available at this time. 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 Prior Treatments and Tests Lumbar laminectomy 02/11/21 Cervical MRI 06/13/21 PT-OP-C Subjective Start: 06/15/21 11:53 Freq: Status: Active Protocol: Document 07/27/21 10:35 DCW (Rec: 07/27/21 11:15 DCW [id number]) OP-PT Subjective Patient Comments Patient Comments I really did not sleep well last night. I don't think I actually went to sleep until about 4 am. PT-OP-F Manual Assessment Start: 06/15/21 11:53 Freq: Status: Active Protocol: Document 06/15/21 10:30 DCW (Rec: 06/15/21 14:47 DCW [id number]) Manual Assessments Soft Tissue Assessment Soft Tissue Mobility Assessment Moderate tone with tenderness to palpation 2/4: pain with wincing along r rhomboids, r subscap, r upper trap Joint Mobility Assessment Joint Mobility Assessment Mild R scapula winging, decreased p->a mobility of C3- 7 PT-OP-K Range of Motion Start: 06/15/21 11:53 Freq: Status: Active Protocol: Document 06/15/21 10:30 DCW (Rec: 06/15/21 14:47 DCW [id number]) Cervical Spine Range of Motion Cervical Spine Active Degrees Testing Position Sitting Flexion 55 Extension 50 Rotation Left 60 Rotation Right 55 Lateral Flexion Left 25 Lateral Flexion Right 25 ROM Limitations Soft Tissue Tightness,Bony Restriction,Muscle Tone,Pain PT-OP-L Special Tests Start: 06/15/21 11:53 Freq: Status: Active Protocol: Document 06/15/21 10:30 DCW (Rec: 06/15/21 14:47 DCW [id number]) Special Tests Cervical Spine Special Tests Slump Test Results Negative Traction Test Results Relief Spurling's Test Test Results Increased R radiculopathy Foraminal Compression Test Results Increased R radiculopathy PT-OP-M Strength Start: 06/15/21 11:53 Freq: Status: Active Protocol: Document 06/15/21 10:30 DCW (Rec: 06/15/21 14:47 DCW [id number]) Shoulder Strength Shoulder Manual Muscle Testing Right Flexion 3+ Fair+ Abduction (C5) 4+ Good+ Adduction 4+ Good+ External Rotation 4+ Good+ Internal Rotation 4+ Good+ Left Flexion 4+ Good+ Abduction (C5) 4+ Good+ Adduction 4+ Good+ External Rotation 4+ Good+ Internal Rotation 4+ Good+ PT-OP-Q Treatments Start: 06/15/21 11:53 Freq: Status: Active Protocol: Document 07/27/21 10:35 DCW (Rec: 07/27/21 11:15 DCW [id number]) Manual Therapy Treatment Soft Tissue Mobilization 2 Body Location C/T paraspinals Mobilization Type Strumming,Sustained Pressure, Trigger Point Release Intensity/Depth Moderate Body Position Hooklying 1 Body Location Upper trap Mobilization Type Strumming,Sustained Pressure, Trigger Point Release Intensity/Depth Moderate Body Position Hooklying Joint Mobilizations 1 Joint Scapulothoracic Direction Lateral Grade III Body Position Hooklying Manual Traction Cervical Details Cervical traction Body Position Hooklying PT-OP-R Modalities Start: 06/15/21 11:53 Freq: Status: Active Protocol: Document 07/27/21 10:35 DCW (Rec: 07/27/21 11:15 DCW [id number]) Spinal Traction Traction Treatment Cervical Method Mechanical,Static Patient Position Hooklying Force Applied (Pounds) 20 Duration of Treatment (Minutes) 10 PT-OP-T Assessment and Plan Start: 06/15/21 11:53 Freq: Status: Active Protocol: Document 07/27/21 10:35 DCW (Rec: 07/27/21 11:15 DCW [id number]) Physical Therapy Assessment Impairments Impairments Functional Activities, Functional Mobility,Pain,ROM, Soft Tissue Mobility,Strength, Tone Goals Three Impairment Pt experiencing numbness down upper and fore arm and into hand Junior Loan Processor Goal (LTG) Pt to report one full week without any radicular symptoms LTG Duration 08/15/21 Two Impairment Restricted cervical ROM Residential Goal (LTG) Pt to increased cervical lateral flexion to 40? to improve mobility with head movement when driving LTG Duration 08/15/21 One Impairment Pt does not have an appropriate home exercise program Short Term Goal (STG) Pt to be independent and compliant with an appropriate HEP STG Duration 07/15/21 Assessment Summary Assessment Pt continues to progress very well, exhibiting decreased tone and significantly less complaints of pain. Physical Therapy Plan Frequency and Duration Frequency of Treatment 2x/Week Duration of Treatment Two months Plan of Care Start Date 06/15/21 Plan of Care End Date 08/15/21 Therapeutic Interventions Therapeutic Interventions Home Exercise Program,Joint Mobilizations,Manual Therapy, Neuromuscular Re-education, Patient/Caregiver Education, Self-Care/Home Management,Soft Tissue Mobilization, Therapeutic Activities, Therapeutic Exercises Modalities Cold Pack/Ice Massage,Electric Stimulation,Hot Packs, Traction- Mechanical, Ultrasound Next Visit Focus/Plan Next Note Type Treatment Note Next Visit Plan Trial mechanical traction, STM , UE strengthening
--- NOTE | 2021-07-29 11:07 | PT.OTN ---
Current Diagnoses Radiculopathy, cervical region (07/29/21) Cervicalgia (07/29/21) Pain in thoracic spine (07/29/21) Physical Therapy Treatment Note PT-OP-A Visit Information Start: 06/15/21 11:53 Freq: Status: Active Protocol: Document 07/29/21 10:35 DCW (Rec: 07/29/21 11:06 DCW [id number]) Out-Patient Physical Therapy Visit Information Visit Information Visit Type Treatment Note Visit Start Time 10:35 Visit Stop Time 11:15 Total Visit Minutes 40 Visit Number 13 Number of DIPPER AND BAKER Visits 0 Evaluation Information Evaluation Date 06/15/21 PT-OP-B Current Condition Start: 06/15/21 11:53 Freq: Status: Active Protocol: Document 06/15/21 10:30 DCW (Rec: 06/15/21 12:50 DCW [id number]) Current Condition History of Current Condition Onset Date 02/11/21 Current Complaints Radicular cervical pain, R UE History of Current Condition Pt is a 60 year old female very well known to this clinic returning with complaints of cervical and thoracic pain with radicular numbness and tingling along right UE. Pt has been treated at this clinic over the last few years for numerous physical deficits, most recently starting in March 2021 following lumbar fusion/lami on 02/11/21. Pt's low back has largely recovered, however pt does note that since surgery, she has been having increased cervical and thoracic pain, as well as radicular symptoms down her right arm. Pt did undergo a cervical MRI on 06/13, however results are not available at this time. 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 Prior Treatments and Tests Lumbar laminectomy 02/11/21 Cervical MRI 06/13/21 PT-OP-C Subjective Start: 06/15/21 11:53 Freq: Status: Active Protocol: Document 07/29/21 10:35 DCW (Rec: 07/29/21 11:06 DCW [id number]) OP-PT Subjective Patient Comments Patient Comments Pt happy, she finally got in contact with [employer], information was submitted for authorization, and now just waiting for approval. PT-OP-F Manual Assessment Start: 06/15/21 11:53 Freq: Status: Active Protocol: Document 06/15/21 10:30 DCW (Rec: 06/15/21 14:47 DCW [id number]) Manual Assessments Soft Tissue Assessment Soft Tissue Mobility Assessment Moderate tone with tenderness to palpation 2/4: pain with wincing along r rhomboids, r subscap, r upper trap Joint Mobility Assessment Joint Mobility Assessment Mild R scapula winging, decreased p->a mobility of C3- 7 PT-OP-K Range of Motion Start: 06/15/21 11:53 Freq: Status: Active Protocol: Document 06/15/21 10:30 DCW (Rec: 06/15/21 14:47 DCW [id number]) Cervical Spine Range of Motion Cervical Spine Active Degrees Testing Position Sitting Flexion 55 Extension 50 Rotation Left 60 Rotation Right 55 Lateral Flexion Left 25 Lateral Flexion Right 25 ROM Limitations Soft Tissue Tightness,Bony Restriction,Muscle Tone,Pain PT-OP-L Special Tests Start: 06/15/21 11:53 Freq: Status: Active Protocol: Document 06/15/21 10:30 DCW (Rec: 06/15/21 14:47 DCW [id number]) Special Tests Cervical Spine Special Tests Slump Test Results Negative Traction Test Results Relief Spurling's Test Test Results Increased R radiculopathy Foraminal Compression Test Results Increased R radiculopathy PT-OP-M Strength Start: 06/15/21 11:53 Freq: Status: Active Protocol: Document 06/15/21 10:30 DCW (Rec: 06/15/21 14:47 DCW [id number]) Shoulder Strength Shoulder Manual Muscle Testing Right Flexion 3+ Fair+ Abduction (C5) 4+ Good+ Adduction 4+ Good+ External Rotation 4+ Good+ Internal Rotation 4+ Good+ Left Flexion 4+ Good+ Abduction (C5) 4+ Good+ Adduction 4+ Good+ External Rotation 4+ Good+ Internal Rotation 4+ Good+ PT-OP-Q Treatments Start: 06/15/21 11:53 Freq: Status: Active Protocol: Document 07/29/21 10:35 DCW (Rec: 07/29/21 11:06 DCW [id number]) Manual Therapy Treatment Soft Tissue Mobilization 2 Body Location C/T paraspinals Mobilization Type Strumming,Sustained Pressure, Trigger Point Release Intensity/Depth Moderate Body Position Hooklying 1 Body Location Upper trap Mobilization Type Strumming,Sustained Pressure, Trigger Point Release Intensity/Depth Moderate Body Position Hooklying Joint Mobilizations 1 Joint Scapulothoracic Direction Lateral Grade III Body Position Hooklying Manual Traction Cervical Details Cervical traction Body Position Hooklying PT-OP-R Modalities Start: 06/15/21 11:53 Freq: Status: Active Protocol: Document 07/29/21 10:35 DCW (Rec: 07/29/21 11:06 DCW [id number]) Spinal Traction Traction Treatment Cervical Method Mechanical,Static Patient Position Hooklying Force Applied (Pounds) 20 Duration of Treatment (Minutes) 10 PT-OP-T Assessment and Plan Start: 06/15/21 11:53 Freq: Status: Active Protocol: Document 07/29/21 10:35 DCW (Rec: 07/29/21 11:06 DCW [id number]) Physical Therapy Assessment Impairments Impairments Functional Activities, Functional Mobility,Pain,ROM, Soft Tissue Mobility,Strength, Tone Goals Three Impairment Pt experiencing numbness down upper and fore arm and into hand Senior Care Goal (LTG) Pt to report one full week without any radicular symptoms LTG Duration 08/15/21 Two Impairment Restricted cervical ROM Senior Care Goal (LTG) Pt to increased cervical lateral flexion to 40? to improve mobility with head movement when driving LTG Duration 08/15/21 One Impairment Pt does not have an appropriate home exercise program Short Term Goal (STG) Pt to be independent and compliant with an appropriate HEP STG Duration 07/15/21 Assessment Summary Assessment Pt would like a comprehensive HEP as she transitions to independent exercise, now that she is hoping to get a home cervical traction unit. Would like it to cover all aspects of her prior PT. Physical Therapy Plan Frequency and Duration Frequency of Treatment 2x/Week Duration of Treatment Two months Plan of Care Start Date 06/15/21 Plan of Care End Date 08/15/21 Therapeutic Interventions Therapeutic Interventions Home Exercise Program,Joint Mobilizations,Manual Therapy, Neuromuscular Re-education, Patient/Caregiver Education, Self-Care/Home Management,Soft Tissue Mobilization, Therapeutic Activities, Therapeutic Exercises Modalities Cold Pack/Ice Massage,Electric Stimulation,Hot Packs, Traction- Mechanical, Ultrasound Next Visit Focus/Plan Next Note Type Treatment Note Next Visit Plan Trial mechanical traction, STM , UE strengthening
--- NOTE | 2021-08-03 16:41 | PT.OTN ---
Current Diagnoses Radiculopathy, cervical region (08/03/21) Cervicalgia (08/03/21) Pain in thoracic spine (08/03/21) Physical Therapy Treatment Note PT-OP-A Visit Information Start: 06/15/21 11:53 Freq: Status: Active Protocol: Document 08/03/21 16:05 DCW (Rec: 08/03/21 16:41 DCW [id number]) Out-Patient Physical Therapy Visit Information Visit Information Visit Type Treatment Note Visit Start Time 16:05 Visit Stop Time 16:45 Total Visit Minutes 40 Visit Number 14 Number of RELEASE AND TECHNICAL RECORDS CLERK Visits 0 Evaluation Information Evaluation Date 06/15/21 PT-OP-B Current Condition Start: 06/15/21 11:53 Freq: Status: Active Protocol: Document 06/15/21 10:30 DCW (Rec: 06/15/21 12:50 DCW [id number]) Current Condition History of Current Condition Onset Date 02/11/21 Current Complaints Radicular cervical pain, R UE History of Current Condition Pt is a 60 year old female very well known to this clinic returning with complaints of cervical and thoracic pain with radicular numbness and tingling along right UE. Pt has been treated at this clinic over the last few years for numerous physical deficits, most recently starting in March 2021 following lumbar fusion/lami on 02/11/21. Pt's low back has largely recovered, however pt does note that since surgery, she has been having increased cervical and thoracic pain, as well as radicular symptoms down her right arm. Pt did undergo a cervical MRI on 06/13, however results are not available at this time. 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 Prior Treatments and Tests Lumbar laminectomy 02/11/21 Cervical MRI 06/13/21 PT-OP-C Subjective Start: 06/15/21 11:53 Freq: Status: Active Protocol: Document 08/03/21 16:05 DCW (Rec: 08/03/21 16:41 DCW [id number]) OP-PT Subjective Patient Comments Patient Comments I've beenrunning around so much today I don't even know how I'm feeling. PT-OP-F Manual Assessment Start: 06/15/21 11:53 Freq: Status: Active Protocol: Document 06/15/21 10:30 DCW (Rec: 06/15/21 14:47 DCW [id number]) Manual Assessments Soft Tissue Assessment Soft Tissue Mobility Assessment Moderate tone with tenderness to palpation 2/4: pain with wincing along r rhomboids, r subscap, r upper trap Joint Mobility Assessment Joint Mobility Assessment Mild R scapula winging, decreased p->a mobility of C3- 7 PT-OP-K Range of Motion Start: 06/15/21 11:53 Freq: Status: Active Protocol: Document 06/15/21 10:30 DCW (Rec: 06/15/21 14:47 DCW [id number]) Cervical Spine Range of Motion Cervical Spine Active Degrees Testing Position Sitting Flexion 55 Extension 50 Rotation Left 60 Rotation Right 55 Lateral Flexion Left 25 Lateral Flexion Right 25 ROM Limitations Soft Tissue Tightness,Bony Restriction,Muscle Tone,Pain PT-OP-L Special Tests Start: 06/15/21 11:53 Freq: Status: Active Protocol: Document 06/15/21 10:30 DCW (Rec: 06/15/21 14:47 DCW [id number]) Special Tests Cervical Spine Special Tests Slump Test Results Negative Traction Test Results Relief Spurling's Test Test Results Increased R radiculopathy Foraminal Compression Test Results Increased R radiculopathy PT-OP-M Strength Start: 06/15/21 11:53 Freq: Status: Active Protocol: Document 06/15/21 10:30 DCW (Rec: 06/15/21 14:47 DCW [id number]) Shoulder Strength Shoulder Manual Muscle Testing Right Flexion 3+ Fair+ Abduction (C5) 4+ Good+ Adduction 4+ Good+ External Rotation 4+ Good+ Internal Rotation 4+ Good+ Left Flexion 4+ Good+ Abduction (C5) 4+ Good+ Adduction 4+ Good+ External Rotation 4+ Good+ Internal Rotation 4+ Good+ PT-OP-Q Treatments Start: 06/15/21 11:53 Freq: Status: Active Protocol: Document 08/03/21 16:05 DCW (Rec: 08/03/21 16:41 DCW [id number]) Manual Therapy Treatment Soft Tissue Mobilization 2 Body Location C/T paraspinals Mobilization Type Strumming,Sustained Pressure, Trigger Point Release Intensity/Depth Moderate Body Position Hooklying 1 Body Location Upper trap Mobilization Type Strumming,Sustained Pressure, Trigger Point Release Intensity/Depth Moderate Body Position Hooklying Joint Mobilizations 1 Joint Scapulothoracic Direction Lateral Grade III Body Position Hooklying Manual Traction Cervical Details Cervical traction Body Position Hooklying PT-OP-R Modalities Start: 06/15/21 11:53 Freq: Status: Active Protocol: Document 08/03/21 16:05 DCW (Rec: 08/03/21 16:41 DCW [id number]) Spinal Traction Traction Treatment Cervical Method Mechanical,Static Patient Position Hooklying Force Applied (Pounds) 20 Duration of Treatment (Minutes) 10 PT-OP-T Assessment and Plan Start: 06/15/21 11:53 Freq: Status: Active Protocol: Document 08/03/21 16:05 DCW (Rec: 08/03/21 16:41 DCW [id number]) Physical Therapy Assessment Impairments Impairments Functional Activities, Functional Mobility,Pain,ROM, Soft Tissue Mobility,Strength, Tone Goals Three Impairment Pt experiencing numbness down upper and fore arm and into hand Correction Goal (LTG) Pt to report one full week without any radicular symptoms LTG Duration 08/15/21 Two Impairment Restricted cervical ROM Correction Goal (LTG) Pt to increased cervical lateral flexion to 40? to improve mobility with head movement when driving LTG Duration 08/15/21 One Impairment Pt does not have an appropriate home exercise program Short Term Goal (STG) Pt to be independent and compliant with an appropriate HEP STG Duration 07/15/21 Assessment Summary Assessment Pt continuing to progress with cervical mobility and decreasing cervical and UE pain. Physical Therapy Plan Frequency and Duration Frequency of Treatment 2x/Week Duration of Treatment Two months Plan of Care Start Date 06/15/21 Plan of Care End Date 08/15/21 Therapeutic Interventions Therapeutic Interventions Home Exercise Program,Joint Mobilizations,Manual Therapy, Neuromuscular Re-education, Patient/Caregiver Education, Self-Care/Home Management,Soft Tissue Mobilization, Therapeutic Activities, Therapeutic Exercises Modalities Cold Pack/Ice Massage,Electric Stimulation,Hot Packs, Traction- Mechanical, Ultrasound Next Visit Focus/Plan Next Note Type Treatment Note Next Visit Plan STM, UE strengthening, Cervical traction
--- NOTE | 2021-08-05 03:00 | PT.OTN ---
Current Diagnoses Radiculopathy, cervical region (08/05/21) Cervicalgia (08/05/21) Pain in thoracic spine (08/05/21) Physical Therapy Treatment Note PT-OP-A Visit Information Start: 06/15/21 11:53 Freq: Status: Active Protocol: Document 08/05/21 12:15 ER (Rec: 08/05/21 13:07 ER [id number]) Out-Patient Physical Therapy Visit Information Visit Information Visit Type Treatment Note Visit Note KIRSTIE Rubio lead treatment and provided education under direct supervision and instruction of GOPI Barajas. Visit Start Time 12:15 Visit Stop Time 13:00 Total Visit Minutes 45 Visit Number 15 Number of DISTRIBUTION ESTIMATOR Visits 1 PT-OP-B Current Condition Start: 06/15/21 11:53 Freq: Status: Active Protocol: Document 06/15/21 10:30 DCW (Rec: 06/15/21 12:50 DCW [id number]) Current Condition History of Current Condition Onset Date 02/11/21 Current Complaints Radicular cervical pain, R UE History of Current Condition Pt is a 60 year old female very well known to this clinic returning with complaints of cervical and thoracic pain with radicular numbness and tingling along right UE. Pt has been treated at this clinic over the last few years for numerous physical deficits, most recently starting in March 2021 following lumbar fusion/lami on 02/11/21. Pt's low back has largely recovered, however pt does note that since surgery, she has been having increased cervical and thoracic pain, as well as radicular symptoms down her right arm. Pt did undergo a cervical MRI on 06/13, however results are not available at this time. 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 Prior Treatments and Tests Lumbar laminectomy 02/11/21 Cervical MRI 06/13/21 PT-OP-C Subjective Start: 06/15/21 11:53 Freq: Status: Active Protocol: Document 08/05/21 12:15 ER (Rec: 08/05/21 13:07 ER [id number]) OP-PT Subjective Patient Comments Patient Comments Pt reports that she slept well last night and that arm numbness and tingling went away after cervical traction therapy, and that a portable cervical traction device is on order. PT-OP-F Manual Assessment Start: 06/15/21 11:53 Freq: Status: Active Protocol: Document 06/15/21 10:30 DCW (Rec: 06/15/21 14:47 DCW [id number]) Manual Assessments Soft Tissue Assessment Soft Tissue Mobility Assessment Moderate tone with tenderness to palpation 2/4: pain with wincing along r rhomboids, r subscap, r upper trap Joint Mobility Assessment Joint Mobility Assessment Mild R scapula winging, decreased p->a mobility of C3- 7 PT-OP-K Range of Motion Start: 06/15/21 11:53 Freq: Status: Active Protocol: Document 06/15/21 10:30 DCW (Rec: 06/15/21 14:47 DCW [id number]) Cervical Spine Range of Motion Cervical Spine Active Degrees Testing Position Sitting Flexion 55 Extension 50 Rotation Left 60 Rotation Right 55 Lateral Flexion Left 25 Lateral Flexion Right 25 ROM Limitations Soft Tissue Tightness,Bony Restriction,Muscle Tone,Pain PT-OP-L Special Tests Start: 06/15/21 11:53 Freq: Status: Active Protocol: Document 06/15/21 10:30 DCW (Rec: 06/15/21 14:47 DCW [id number]) Special Tests Cervical Spine Special Tests Slump Test Results Negative Traction Test Results Relief Spurling's Test Test Results Increased R radiculopathy Foraminal Compression Test Results Increased R radiculopathy PT-OP-M Strength Start: 06/15/21 11:53 Freq: Status: Active Protocol: Document 06/15/21 10:30 DCW (Rec: 06/15/21 14:47 DCW [id number]) Shoulder Strength Shoulder Manual Muscle Testing Right Flexion 3+ Fair+ Abduction (C5) 4+ Good+ Adduction 4+ Good+ External Rotation 4+ Good+ Internal Rotation 4+ Good+ Left Flexion 4+ Good+ Abduction (C5) 4+ Good+ Adduction 4+ Good+ External Rotation 4+ Good+ Internal Rotation 4+ Good+ PT-OP-Q Treatments Start: 06/15/21 11:53 Freq: Status: Active Protocol: Document 08/05/21 12:15 ER (Rec: 08/05/21 13:07 ER [id number]) Therapeutic Exercises Sitting Exercises Scalene Stretch Sitting Exercise Name Added to HEP Side right Reps/Minutes 3x 30 LS stretch Sitting Exercise Name Levator Scap stretch Added to HEP Side right Reps/Minutes 3x30 cervical retraction Sitting Exercise Name added to HEP Side bilateral Resistance AROM Reps/Minutes 10x Manual Therapy Treatment Soft Tissue Mobilization Self STM Body Location manual sub occipitals, levator scapula, upper traps, rhomboids Comments manual, instruction on self application with theracane, sustained pressure and mobilization with movement. 2 Body Location C/T paraspinals Mobilization Type Strumming,Sustained Pressure, Trigger Point Release Intensity/Depth Moderate Body Position Hooklying Manual Traction Cervical Details Cervical traction Body Position Hooklying PT-OP-R Modalities Start: 06/15/21 11:53 Freq: Status: Active Protocol: Document 08/05/21 12:15 ER (Rec: 08/05/21 13:07 ER [id number]) Spinal Traction Traction Treatment Cervical Method Mechanical,Static Patient Position Hooklying Force Applied (Pounds) 20 Duration of Treatment (Minutes) 10 Traction Treatment Comment Good feedback response. Pain free. PT-OP-T Assessment and Plan Start: 06/15/21 11:53 Freq: Status: Active Protocol: Document 08/05/21 12:15 ER (Rec: 08/05/21 13:07 ER [id number]) Physical Therapy Assessment Goals Three Impairment Pt experiencing numbness down upper and fore arm and into hand Director Of Pulmonary Unit Goal (LTG) Pt to report one full week without any radicular symptoms LTG Duration 08/15/21 Two Impairment Restricted cervical ROM Long-Term Goal (LTG) Pt to increased cervical lateral flexion to 40? to improve mobility with head movement when driving LTG Duration 08/15/21 One Impairment Pt does not have an appropriate home exercise program Short Term Goal (STG) Pt to be independent and compliant with an appropriate HEP STG Duration 07/15/21 Assessment Summary Assessment Pt responded well to manual therapy and cervical traction. Initiated stretching only on right side in response to report of tingling down RUE when performed on L side. Good response to cervical extension/ nodding. Physical Therapy Plan Frequency and Duration Frequency of Treatment 2x/Week Duration of Treatment Two months Plan of Care Start Date 06/15/21 Plan of Care End Date 08/15/21 Therapeutic Interventions Therapeutic Interventions Home Exercise Program,Joint Mobilizations,Manual Therapy, Neuromuscular Re-education, Patient/Caregiver Education, Self-Care/Home Management,Soft Tissue Mobilization, Therapeutic Activities, Therapeutic Exercises Modalities Cold Pack/Ice Massage,Electric Stimulation,Hot Packs, Traction- Mechanical, Ultrasound Next Visit Focus/Plan Next Note Type Treatment Note Next Visit Plan STM, UE strengthening, Cervical traction Add Scapular retraction, pec stretch to HEP.
--- NOTE | 2021-08-16 08:10 | PT-OP ANOTE ---
Lanny Randhawa's POC yesterday. Spoke with her today at 0810am. She reported wasn't feeling completely 100% and took 2 covid tests for safety awareness with neg home testing results, was going to call and cancel today's appt. She will call to cancel today's appt and schedule her next appt with a PT for updating POC this week if able to get in. She is aware her next scheduled appt is with Jenn TELEVISION PRODUCTION CLERK currently.
--- NOTE | 2021-08-18 18:05 | PT.OTRE ---
Current Diagnoses Radiculopathy, cervical region (08/18/21) Cervicalgia (08/18/21) Pain in thoracic spine (08/18/21) Visit Care Team Role Provider Type Gilberto Iyer MD Attending Provider Physician Primary Care Provider Referring Provider Specialty: Family Practice Address: [facility] [place], [address] Email: [email or web address] Physical Therapy Re-Evaluation PT-OP-A Visit Information Start: 06/15/21 11:53 Freq: Status: Active Protocol: Document 08/18/21 14:19 SAK (Rec: 08/18/21 15:21 SAK [id number]) Out-Patient Physical Therapy Visit Information Visit Information Visit Type Re-Evaluation Visit Start Time 14:30 Visit Number 16 Number of TEXTILE CLOTHING AND FOOTWEAR MECHANIC Visits 0 PT-OP-B Current Condition Start: 06/15/21 11:53 Freq: Status: Active Protocol: Document 06/15/21 10:30 DCW (Rec: 06/15/21 12:50 DCW [id number]) Current Condition History of Current Condition Onset Date 02/11/21 Current Complaints Radicular cervical pain, R UE History of Current Condition Pt is a 60 year old female very well known to this clinic returning with complaints of cervical and thoracic pain with radicular numbness and tingling along right UE. Pt has been treated at this clinic over the last few years for numerous physical deficits, most recently starting in March 2021 following lumbar fusion/lami on 02/11/21. Pt's low back has largely recovered, however pt does note that since surgery, she has been having increased cervical and thoracic pain, as well as radicular symptoms down her right arm. Pt did undergo a cervical MRI on 06/13, however results are not available at this time. 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 Prior Treatments and Tests Lumbar laminectomy 02/11/21 Cervical MRI 06/13/21 PT-OP-C Subjective Start: 06/15/21 11:53 Freq: Status: Active Protocol: Document 08/18/21 14:19 SAK (Rec: 08/18/21 17:56 [facility] [id number]) OP-PT Subjective Patient Comments Patient Comments Reports has had a little more pain past couple days, though thinks may be due to doing more after being down due to having a cold. States PT has been very helpful. Received home traction unit yesterday with some training, but brought today to review with PT to make sure using correctly. Patient Reported Progress Improving PT-OP-F Manual Assessment Start: 06/15/21 11:53 Freq: Status: Active Protocol: Document 06/15/21 10:30 DCW (Rec: 06/15/21 14:47 DCW [id number]) Manual Assessments Soft Tissue Assessment Soft Tissue Mobility Assessment Moderate tone with tenderness to palpation 2/4: pain with wincing along r rhomboids, r subscap, r upper trap Joint Mobility Assessment Joint Mobility Assessment Mild R scapula winging, decreased p->a mobility of C3- 7 PT-OP-K Range of Motion Start: 06/15/21 11:53 Freq: Status: Active Protocol: Document 06/15/21 10:30 DCW (Rec: 06/15/21 14:47 DCW [id number]) Cervical Spine Range of Motion Cervical Spine Active Degrees Testing Position Sitting Flexion 55 Extension 50 Rotation Left 60 Rotation Right 55 Lateral Flexion Left 25 Lateral Flexion Right 25 ROM Limitations Soft Tissue Tightness,Bony Restriction,Muscle Tone,Pain PT-OP-L Special Tests Start: 06/15/21 11:53 Freq: Status: Active Protocol: Document 06/15/21 10:30 DCW (Rec: 06/15/21 14:47 DCW [id number]) Special Tests Cervical Spine Special Tests Slump Test Results Negative Traction Test Results Relief Spurling's Test Test Results Increased R radiculopathy Foraminal Compression Test Results Increased R radiculopathy PT-OP-M Strength Start: 06/15/21 11:53 Freq: Status: Active Protocol: Document 06/15/21 10:30 DCW (Rec: 06/15/21 14:47 DCW [id number]) Shoulder Strength Shoulder Manual Muscle Testing Right Flexion 3+ Fair+ Abduction (C5) 4+ Good+ Adduction 4+ Good+ External Rotation 4+ Good+ Internal Rotation 4+ Good+ Left Flexion 4+ Good+ Abduction (C5) 4+ Good+ Adduction 4+ Good+ External Rotation 4+ Good+ Internal Rotation 4+ Good+ PT-OP-Q Treatments Start: 06/15/21 11:53 Freq: Status: Active Protocol: Document 08/05/21 12:15 ER (Rec: 08/05/21 13:07 ER [id number]) Therapeutic Exercises Sitting Exercises Scalene Stretch Sitting Exercise Name Added to HEP Side right Reps/Minutes 3x 30 LS stretch Sitting Exercise Name Levator Scap stretch Added to HEP Side right Reps/Minutes 3x30 cervical retraction Sitting Exercise Name added to HEP Side bilateral Resistance AROM Reps/Minutes 10x Manual Therapy Treatment Soft Tissue Mobilization Self STM Body Location manual sub occipitals, levator scapula, upper traps, rhomboids Comments manual, instruction on self application with theracane, sustained pressure and mobilization with movement. 2 Body Location C/T paraspinals Mobilization Type Strumming,Sustained Pressure, Trigger Point Release Intensity/Depth Moderate Body Position Hooklying Manual Traction Cervical Details Cervical traction Body Position Hooklying PT-OP-R Modalities Start: 06/15/21 11:53 Freq: Status: Active Protocol: Document 08/18/21 14:19 [facility] (Rec: 08/18/21 15:21 [facility] [id number]) Spinal Traction Traction Treatment Cervical Method Mechanical,Static Patient Position Hooklying Force Applied (Pounds) 20 Duration of Treatment (Minutes) 10 Traction Treatment Comment Good feedback response. Pain free. PT-OP-T Assessment and Plan Start: 06/15/21 11:53 Freq: Status: Active Protocol: Document 08/18/21 14:19 [facility] (Rec: 08/18/21 15:21 [facility] [id number]) Physical Therapy Assessment Goals Three Impairment Pt experiencing numbness down upper and fore arm and into hand Penitentiary Goal (LTG) Pt to report one full week without any radicular symptoms 08/17/21: good goal progress with decreasing radicular symptoms especially with PT. Just obtained home cervical traction unit. LTG Duration 09/16/21 Two Impairment Restricted cervical ROM Penitentiary Goal (LTG) Pt to increased cervical lateral flexion to 40? to improve mobility with head movement when driving 08/17/21: good goal progress, lateral cervical flexion improved to 35 degrees and rotation right improved to 65 deg, with patient noting improved ability to move head to drive LTG Duration 09/16/21 One Impairment Pt does not have an appropriate home exercise program Short Term Goal (STG) Pt to be independent and compliant with an appropriate HEP 08/17/21: goal progress, issued written HEP today. Will do ongoing progression to address flexibility, range of motion, postural correction STG Duration ongoing Penitentiary Goal (LTG) finalize patient HEP with patient able to demonstrate good performance with appropriate technique for HEP. LTG Duration 09/16/21 Assessment Summary Assessment Patient making good goal progress in all areas. She received her home traction unit, and after further instruction patient able to demonstrate independent and safe use. Patient also instructed in correct lifting and movement of home traction unit to assure safety for neck and back. Patient would benefit from further PT to help her to fully achieve her above goals to improve her function and for her to learn how to self-manage her pain and radicular symptoms through therapeutic exercise and use of home traction. Physical Therapy Plan Frequency and Duration Frequency of Treatment 2x/Week Duration of Treatment 4 weeks Plan of Care Start Date 08/18/21 Plan of Care End Date 09/16/21 Therapeutic Interventions Therapeutic Interventions Home Exercise Program,Joint Mobilizations,Manual Therapy, Neuromuscular Re-education, Patient/Caregiver Education, Self-Care/Home Management,Soft Tissue Mobilization, Therapeutic Activities, Therapeutic Exercises Modalities Cold Pack/Ice Massage,Electric Stimulation,Hot Packs, Traction- Mechanical, Ultrasound Next Visit Focus/Plan Next Note Type Treatment Note Next Visit Plan Review HEP, progress as tolerated for postural currection, flexibility, strengthening. Manual therapy and cervical traction.
--- NOTE | 2021-08-18 18:05 | PT.OPPOC ---
Physical, Occupational & Speech Therapy At [facility] Current Diagnoses Radiculopathy, cervical region (08/18/21) Cervicalgia (08/18/21) Pain in thoracic spine (08/18/21) Visit Care Team Role Provider Type Gilberto Iyer MD Attending Provider Physician Primary Care Provider Referring Provider Specialty: [facility] Address: [facility] [place], [facility] Email: [email or web address] Plan Of Care PT-OP-T Assessment and Plan Start: 06/15/21 11:53 Freq: Status: Active Protocol: Document 08/18/21 14:19 SAK (Rec: 08/18/21 15:21 SAK [id number]) Physical Therapy Assessment Goals Three Impairment Pt experiencing numbness down upper and fore arm and into hand Jail Goal (LTG) Pt to report one full week without any radicular symptoms 08/17/21: good goal progress with decreasing radicular symptoms especially with PT. Just obtained home cervical traction unit. LTG Duration 09/16/21 Two Impairment Restricted cervical ROM Fishing Vessel Mate Goal (LTG) Pt to increased cervical lateral flexion to 40? to improve mobility with head movement when driving 08/17/21: good goal progress, lateral cervical flexion improved to 35 degrees and rotation right improved to 65 deg, with patient noting improved ability to move head to drive LTG Duration 09/16/21 One Impairment Pt does not have an appropriate home exercise program Short Term Goal (STG) Pt to be independent and compliant with an appropriate HEP 08/17/21: goal progress, issued written HEP today. Will do ongoing progression to address flexibility, range of motion, postural correction STG Duration ongoing Jail Goal (LTG) finalize patient HEP with patient able to demonstrate good performance with appropriate technique for HEP. LTG Duration 09/16/21 Assessment Summary Assessment Patient making good goal progress in all areas. She received her home traction unit, and after further instruction patient able to demonstrate independent and safe use. Patient also instructed in correct lifting and movement of home traction unit to assure safety for neck and back. Patient would benefit from further PT to help her to fully achieve her above goals to improve her function and for her to learn how to self-manage her pain and radicular symptoms through therapeutic exercise and use of home traction. Physical Therapy Plan Frequency and Duration Frequency of Treatment 2x/Week Duration of Treatment 4 weeks Plan of Care Start Date 08/18/21 Plan of Care End Date 09/16/21 Therapeutic Interventions Therapeutic Interventions Home Exercise Program,Joint Mobilizations,Manual Therapy, Neuromuscular Re-education, Patient/Caregiver Education, Self-Care/Home Management,Soft Tissue Mobilization, Therapeutic Activities, Therapeutic Exercises Modalities Cold Pack/Ice Massage,Electric Stimulation,Hot Packs, Traction- Mechanical, Ultrasound Next Visit Focus/Plan Next Note Type Treatment Note Next Visit Plan Review HEP, progress as tolerated for postural currection, flexibility, strengthening. Manual therapy and cervical traction. Plan of Care Dates Plan of Care Start Date 08/18/21 Plan of Care End Date 09/16/21 Electronically Signed by: Adelaida Oconnor, PT 08/18/21 [id number] Please Sign and Return: I have reviewed this Plan of Care and certify that the skilled therapy services above are required to meet the patient?s needs. Physician Signature Date Printed Name and Credentials Clinical Instructor Signature Printed Name and Credentials
--- NOTE | 2021-08-23 15:35 | PT.OTN ---
Current Diagnoses Radiculopathy, cervical region (08/23/21) Cervicalgia (08/23/21) Pain in thoracic spine (08/23/21) Physical Therapy Treatment Note PT-OP-A Visit Information Start: 06/15/21 11:53 Freq: Status: Active Protocol: Document 08/23/21 14:35 ER (Rec: 08/23/21 15:35 ER [id number]) Out-Patient Physical Therapy Visit Information Visit Information Visit Type Treatment Note Visit Note KIRSTIE Rubio lead treatment and provided education under direct supervision and instruction of GOPI Barajas. 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 Pt has been treated at this clinic over the last few years for numerous physical deficits, most recently starting in March 2021 following lumbar fusion/lami on 02/11/21. Pt's low back has largely recovered, however pt does note that since surgery, she has been having increased cervical and thoracic pain, as well as radicular symptoms down her right arm. Pt did undergo a cervical MRI on 06/13, however results are not available at this time. 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 Prior Treatments and Tests Lumbar laminectomy 02/11/21 Cervical MRI 06/13/21 PT-OP-C Subjective Start: 06/15/21 11:53 Freq: Status: Active Protocol: Document 08/23/21 14:35 ER (Rec: 08/23/21 15:35 ER [id number]) OP-PT Subjective Patient Comments Patient Comments Pt says she still gets numbing and tingling in her hands, but it's better. She feels like if she uses her traction device, she gets a few hours relief. Feels like right now, she is really busy wit her job , so has less time to do her exercises. Using theracane to work out knots on her back. Has not been doing her core exercises, so feels like she is having some extra pressure on her back. Is going to look for her past back HEP to help strengthen core to decreasd back pain and see if it helps. PT-OP-F Manual Assessment Start: 06/15/21 11:53 Freq: Status: Active Protocol: Document 06/15/21 10:30 DCW (Rec: 06/15/21 14:47 DCW [id number]) Manual Assessments Soft Tissue Assessment Soft Tissue Mobility Assessment Moderate tone with tenderness to palpation 2/4: pain with wincing along r rhomboids, r subscap, r upper trap Joint Mobility Assessment Joint Mobility Assessment Mild R scapula winging, decreased p->a mobility of C3- 7 PT-OP-K Range of Motion Start: 06/15/21 11:53 Freq: Status: Active Protocol: Document 06/15/21 10:30 DCW (Rec: 06/15/21 14:47 DCW [id number]) Cervical Spine Range of Motion Cervical Spine Active Degrees Testing Position Sitting Flexion 55 Extension 50 Rotation Left 60 Rotation Right 55 Lateral Flexion Left 25 Lateral Flexion Right 25 ROM Limitations Soft Tissue Tightness,Bony Restriction,Muscle Tone,Pain PT-OP-L Special Tests Start: 06/15/21 11:53 Freq: Status: Active Protocol: Document 06/15/21 10:30 DCW (Rec: 06/15/21 14:47 DCW [id number]) Special Tests Cervical Spine Special Tests Slump Test Results Negative Traction Test Results Relief Spurling's Test Test Results Increased R radiculopathy Foraminal Compression Test Results Increased R radiculopathy PT-OP-M Strength Start: 06/15/21 11:53 Freq: Status: Active Protocol: Document 06/15/21 10:30 DCW (Rec: 06/15/21 14:47 DCW [id number]) Shoulder Strength Shoulder Manual Muscle Testing Right Flexion 3+ Fair+ Abduction (C5) 4+ Good+ Adduction 4+ Good+ External Rotation 4+ Good+ Internal Rotation 4+ Good+ Left Flexion 4+ Good+ Abduction (C5) 4+ Good+ Adduction 4+ Good+ External Rotation 4+ Good+ Internal Rotation 4+ Good+ PT-OP-Q Treatments Start: 06/15/21 11:53 Freq: Status: Active Protocol: Document 08/23/21 14:35 ER (Rec: 08/23/21 15:35 ER [id number]) Therapeutic Exercises Supine Exercises Pec Stretch over foam roller Supine Exercise Name roller supporting head torso, hips Side bilateral Resistance AROM Equipment Used foam roller Reps/Minutes 1' stretch Comments Self directed HEP Sitting Exercises Scalene Stretch Sitting Exercise Name reviewed HEP Side right Reps/Minutes 1x30 each Comments cues to place opposite hand over clavicle to anchor skin LS stretch Sitting Exercise Name Levator Scap reviewed HEP Side right Reps/Minutes 1x30 ea Comments Pt reported some tingling in R hand when performing to R cervical retraction Sitting Exercise Name reviewed HEP Side bilateral Reps/Minutes 5x Comments Cued for cervical retraction w /o extension Manual Therapy Treatment Soft Tissue Mobilization 2 Body Location paraspinals, rhomboids, lev scap, infraspinatus Mobilization Type Strumming,Sustained Pressure, Trigger Point Release Intensity/Depth Moderate Body Position supine > sile lying Comments Significant tightness at lateral border of R scapula. Released with sustained pressure. Good feedback response. PT-OP-R Modalities Start: 06/15/21 11:53 Freq: Status: Active Protocol: Document 08/23/21 14:35 ER (Rec: 08/23/21 15:35 ER [id number]) Spinal Traction Traction Treatment Cervical Method Mechanical,Static Patient Position Hooklying Force Applied (Pounds) 20 Duration of Treatment (Minutes) 10 Traction Treatment Comment Good feedback response. Pain free. Reviewed pt ability to perform for independent use of home traction device, carry over for home use. 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 Just obtained home cervical traction unit. LTG Duration 09/16/21 Two Impairment Restricted cervical ROM [facility] Goal (LTG) Pt to increased cervical lateral flexion to 40? to improve mobility with head movement when driving 08/17/21: good goal progress, lateral cervical flexion improved to 35 degrees and rotation right improved to 65 deg, with patient noting improved ability to move head to drive LTG Duration 09/16/21 One Impairment Pt does not have an appropriate home exercise program Short Term Goal (STG) Pt to be independent and compliant with an appropriate HEP 08/17/21: goal progress, issued written HEP today. Will do ongoing progression to address flexibility, range of motion, postural correction STG Duration ongoing [facility] Goal (LTG) finalize patient HEP with patient able to demonstrate good performance with appropriate technique for HEP. LTG Duration 09/16/21 Assessment Summary Assessment Pt demonstrated HEP, but needed cues and re-education for proper form and targeting of specific muscles. Implemented STM to release trigger points along and under R scapular medial border. Pt reports significant relief. Pt trained on use of portable traction unit, and demonstrated ability to use competently and safely. Pt/ therapist co-identified benefit of STM (theracane for Pt) before traction. Pt said she is going to try that at home. Physical Therapy Plan Frequency and Duration Frequency of Treatment 2x/Week Duration of Treatment 4 weeks Plan of Care Start Date 08/18/21 Plan of Care End Date 09/16/21 Therapeutic Interventions Therapeutic Interventions Home Exercise Program,Joint Mobilizations,Manual Therapy, Neuromuscular Re-education, Patient/Caregiver Education, Self-Care/Home Management,Soft Tissue Mobilization, Therapeutic Activities, Therapeutic Exercises Modalities Cold Pack/Ice Massage,Electric Stimulation,Hot Packs, Traction- Mechanical, Ultrasound Next Visit Focus/Plan Next Note Type Treatment Note Next Visit Plan Rrogress as tolerated for postural currection, flexibility, strengthening. Manual therapy and cervical traction prn.
--- NOTE | 2021-08-25 15:15 | PT.OTN ---
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 Pt has been treated at this clinic over the last few years for numerous physical deficits, most recently starting in March 2021 following lumbar fusion/lami on 02/11/21. Pt's low back has largely recovered, however pt does note that since surgery, she has been having increased cervical and thoracic pain, as well as radicular symptoms down her right arm. Pt did undergo a cervical MRI on 06/13, however results are not available at this time. 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 Prior Treatments and Tests Lumbar laminectomy 02/11/21 Cervical MRI 06/13/21 PT-OP-C Subjective Start: 06/15/21 11:53 Freq: Status: Active Protocol: Document 08/25/21 14:34 SP (Rec: 08/25/21 15:44 SP [id number]) OP-PT Subjective Patient Comments Patient Comments Pt states felt alot better after manual last tx and benefited order of STMs theracane/ stretching before traction with eyes covered helped get full benefit and not watch TV during tx. She states the tingling isn't gone but alot less intense when turns L or SB head to R. PT-OP-F Manual Assessment Start: 06/15/21 11:53 Freq: Status: Active Protocol: Document 06/15/21 10:30 DCW (Rec: 06/15/21 14:47 DCW [id number]) Manual Assessments Soft Tissue Assessment Soft Tissue Mobility Assessment Moderate tone with tenderness to palpation 2/4: pain with wincing along r rhomboids, r subscap, r upper trap Joint Mobility Assessment Joint Mobility Assessment Mild R scapula winging, decreased p->a mobility of C3- 7 PT-OP-K Range of Motion Start: 06/15/21 11:53 Freq: Status: Active Protocol: Document 06/15/21 10:30 DCW (Rec: 06/15/21 14:47 DCW [id number]) Cervical Spine Range of Motion Cervical Spine Active Degrees Testing Position Sitting Flexion 55 Extension 50 Rotation Left 60 Rotation Right 55 Lateral Flexion Left 25 Lateral Flexion Right 25 ROM Limitations Soft Tissue Tightness,Bony Restriction,Muscle Tone,Pain PT-OP-L Special Tests Start: 06/15/21 11:53 Freq: Status: Active Protocol: Document 06/15/21 10:30 DCW (Rec: 06/15/21 14:47 DCW [id number]) Special Tests Cervical Spine Special Tests Slump Test Results Negative Traction Test Results Relief Spurling's Test Test Results Increased R radiculopathy Foraminal Compression Test Results Increased R radiculopathy PT-OP-M Strength Start: 06/15/21 11:53 Freq: Status: Active Protocol: Document 06/15/21 10:30 DCW (Rec: 06/15/21 14:47 DCW [id number]) Shoulder Strength Shoulder Manual Muscle Testing Right Flexion 3+ Fair+ Abduction (C5) 4+ Good+ Adduction 4+ Good+ External Rotation 4+ Good+ Internal Rotation 4+ Good+ Left Flexion 4+ Good+ Abduction (C5) 4+ Good+ Adduction 4+ Good+ External Rotation 4+ Good+ Internal Rotation 4+ Good+ PT-OP-Q Treatments Start: 06/15/21 11:53 Freq: Status: Active Protocol: Document 08/25/21 14:34 SP (Rec: 08/25/21 15:44 SP [id number]) Therapeutic Exercises Supine Exercises Ts, 1/2 Xs, Ws Supine Exercise Name added to HEP Side bilateral Resistance AROM (see if can add Tb next tx) Equipment Used over foam roller Reps/Minutes x10 each Comments cued slow con/ eccentric movement Pec Stretch over foam roller Supine Exercise Name roller supporting head to pelvis Side bilateral Resistance AROM Equipment Used foam roller Reps/Minutes 1' stretch Comments good various ranges Sitting Exercises Scalene Stretch Sitting Exercise Name reviewed HEP Side right Reps/Minutes 1x30 each Comments cues to place opposite hand over clavicle to anchor skin LS stretch Sitting Exercise Name UT and Levator Scap reviewed HEP Side right Reps/Minutes 1x30 ea Comments good stretch head turned L, little tingling head turn R trying L so stopped cervical retraction Sitting Exercise Name reviewed HEP Side bilateral Reps/Minutes 5x 2 sec hold Comments Cued for cervical retraction w /o extension Manual Therapy Treatment Soft Tissue Mobilization 2 Body Location CS paraspinals, L>R lev scap, L UT, L pec minor Mobilization Type Strumming,Sustained Pressure, Trigger Point Release Intensity/Depth Moderate Body Position Supine Comments Significant tightness, improved with srumming and sustained pressure. Manual Traction Cervical Details Cervical traction Body Position Hooklying Reps/Duration 1 min Comments good relaxed deeper breathes Nerve Glides radial Nerve R Body Position Standing Reps/Duration x10 Comments no pain/ tingle, cued head position toward arm during extension w/ wrist flexion, head/ neck neutral looking forward with arm position bent at side, see HO. PT-OP-R Modalities Start: 06/15/21 11:53 Freq: Status: Active Protocol: Document 08/23/21 14:35 ER (Rec: 08/23/21 15:35 ER [id number]) Spinal Traction Traction Treatment Cervical Method Mechanical,Static Patient Position Hooklying Force Applied (Pounds) 20 Duration of Treatment (Minutes) 10 Traction Treatment Comment Good feedback response. Pain free. Reviewed pt ability to perform for independent use of home traction device, carry over for home use. PT-OP-T Assessment and Plan Start: 06/15/21 11:53 Freq: Status: Active Protocol: Document 08/25/21 14:34 SP (Rec: 08/25/21 15:44 SP [id number]) Physical Therapy Assessment Goals Three Impairment Pt experiencing numbness down upper and fore arm and into hand [facility] Goal (LTG) Pt to report one full week without any radicular symptoms 08/17/21: good goal progress with decreasing radicular symptoms especially with PT. Just obtained home cervical traction unit. 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 to improve mobility with head movement when driving 08/17/21: good goal progress, lateral cervical flexion improved to 35 degrees and rotation right improved to 65 deg, with patient noting improved ability to move head to drive LTG Duration 09/16/21 One Impairment Pt does not have an appropriate home exercise program Short Term Goal (STG) Pt to be independent and compliant with an appropriate HEP 08/17/21: goal progress, issued written HEP today. Will do ongoing progression to address flexibility, range of motion, postural correction 08/25/21: seated CS rotation w/ head nods, Stretching SCalene / UT/ LEv scap, added supine foam roller Ws, Ts, 1/2 Xs AROM and radial nerve glide. STG Duration ongoing [facility] Goal (LTG) finalize patient HEP with patient able to demonstrate good performance with appropriate technique for HEP. LTG Duration 09/16/21 Assessment Summary Assessment Pt decreased tightness R prox lev scap and UT post manual. Reviewed HEP and progressed to supine over foam roller mulitplanar scap mobility CS neutral AROM, no pain or tingling. Assess next tx if ok to add TB. Pt reported will use traction later if needs. Physical Therapy Plan Frequency and Duration Frequency of Treatment 2x/Week Duration of Treatment 4 weeks Plan of Care Start Date 08/18/21 Plan of Care End Date 09/16/21 Therapeutic Interventions Therapeutic Interventions Home Exercise Program,Joint Mobilizations,Manual Therapy, Neuromuscular Re-education, Patient/Caregiver Education, Self-Care/Home Management,Soft Tissue Mobilization, Therapeutic Activities, Therapeutic Exercises Modalities Cold Pack/Ice Massage,Electric Stimulation,Hot Packs, Traction- Mechanical, Ultrasound Next Visit Focus/Plan Next Note Type Treatment Note Next Visit Plan Recheck added Ts, Ws, 1/2 X over foam roller, Next tx: can add TB and wall posture shld ER AROM. POC: Progress as tolerated for postural currection, flexibility, strengthening. Manual therapy and cervical traction prn.
--- NOTE | 2021-08-31 12:02 | PT.OTN ---
Current Diagnoses Radiculopathy, cervical region (08/25/21) Cervicalgia (08/25/21) Pain in thoracic spine (08/25/21) Physical Therapy Treatment Note PT-OP-A Visit Information Start: 06/15/21 11:53 Freq: Status: Active Protocol: Document 08/31/21 11:24 DCW (Rec: 08/31/21 12:02 DCW [id number]) Out-Patient Physical Therapy Visit Information Visit Information Visit Type Treatment Note Visit Note Arrived 9 min late Visit Start Time 11:24 Visit Stop Time 12:00 Total Visit Minutes 36 Visit Number 19 Number of CUT OFF SAW OPERATOR Visits 0 Evaluation Information Evaluation Date 06/15/21 PT-OP-B Current Condition Start: 06/15/21 11:53 Freq: Status: Active Protocol: Document 06/15/21 10:30 DCW (Rec: 06/15/21 12:50 DCW [id number]) Current Condition History of Current Condition Onset Date 02/11/21 Current Complaints Radicular cervical pain, R UE History of Current Condition Pt is a 60 year old female very well known to this clinic returning with complaints of cervical and thoracic pain with radicular numbness and tingling along right UE. Pt has been treated at this clinic over the last few years for numerous physical deficits, most recently starting in March 2021 following lumbar fusion/lami on 02/11/21. Pt's low back has largely recovered, however pt does note that since surgery, she has been having increased cervical and thoracic pain, as well as radicular symptoms down her right arm. Pt did undergo a cervical MRI on 06/13, however results are not available at this time. 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 Prior Treatments and Tests Lumbar laminectomy 02/11/21 Cervical MRI 06/13/21 PT-OP-C Subjective Start: 06/15/21 11:53 Freq: Status: Active Protocol: Document 08/31/21 11:24 DCW (Rec: 08/31/21 12:02 DCW [id number]) OP-PT Subjective Patient Comments Patient Comments Pt met with Dr Landeros for her 6-month follow-up following surgery, reports everything looks great. Has been using her home traction unit PT-OP-F Manual Assessment Start: 06/15/21 11:53 Freq: Status: Active Protocol: Document 06/15/21 10:30 DCW (Rec: 06/15/21 14:47 DCW [id number]) Manual Assessments Soft Tissue Assessment Soft Tissue Mobility Assessment Moderate tone with tenderness to palpation 2/4: pain with wincing along r rhomboids, r subscap, r upper trap Joint Mobility Assessment Joint Mobility Assessment Mild R scapula winging, decreased p->a mobility of C3- 7 PT-OP-K Range of Motion Start: 06/15/21 11:53 Freq: Status: Active Protocol: Document 06/15/21 10:30 DCW (Rec: 06/15/21 14:47 DCW [id number]) Cervical Spine Range of Motion Cervical Spine Active Degrees Testing Position Sitting Flexion 55 Extension 50 Rotation Left 60 Rotation Right 55 Lateral Flexion Left 25 Lateral Flexion Right 25 ROM Limitations Soft Tissue Tightness,Bony Restriction,Muscle Tone,Pain PT-OP-L Special Tests Start: 06/15/21 11:53 Freq: Status: Active Protocol: Document 06/15/21 10:30 DCW (Rec: 06/15/21 14:47 DCW [id number]) Special Tests Cervical Spine Special Tests Slump Test Results Negative Traction Test Results Relief Spurling's Test Test Results Increased R radiculopathy Foraminal Compression Test Results Increased R radiculopathy PT-OP-M Strength Start: 06/15/21 11:53 Freq: Status: Active Protocol: Document 06/15/21 10:30 DCW (Rec: 06/15/21 14:47 DCW [id number]) Shoulder Strength Shoulder Manual Muscle Testing Right Flexion 3+ Fair+ Abduction (C5) 4+ Good+ Adduction 4+ Good+ External Rotation 4+ Good+ Internal Rotation 4+ Good+ Left Flexion 4+ Good+ Abduction (C5) 4+ Good+ Adduction 4+ Good+ External Rotation 4+ Good+ Internal Rotation 4+ Good+ PT-OP-Q Treatments Start: 06/15/21 11:53 Freq: Status: Active Protocol: Document 08/31/21 11:24 DCW (Rec: 08/31/21 12:02 DCW [id number]) Manual Therapy Treatment Soft Tissue Mobilization 2 Body Location CS paraspinals, L>R lev scap, L UT, L pec minor Mobilization Type Strumming,Sustained Pressure, Trigger Point Release Intensity/Depth Moderate Body Position Supine Comments Significant tightness, improved with srumming and sustained pressure. 1 Body Location Upper trap Mobilization Type Strumming,Sustained Pressure, Trigger Point Release Intensity/Depth Moderate Body Position Hooklying Joint Mobilizations 1 Joint Scapulothoracic Direction Lateral Grade III Body Position Hooklying Manual Traction Cervical Details Cervical traction Body Position Hooklying Reps/Duration 1 min Comments good relaxed deeper breathes PT-OP-R Modalities Start: 06/15/21 11:53 Freq: Status: Active Protocol: Document 08/23/21 14:35 ER (Rec: 08/23/21 15:35 ER [id number]) Spinal Traction Traction Treatment Cervical Method Mechanical,Static Patient Position Hooklying Force Applied (Pounds) 20 Duration of Treatment (Minutes) 10 Traction Treatment Comment Good feedback response. Pain free. Reviewed pt ability to perform for independent use of home traction device, carry over for home use. PT-OP-T Assessment and Plan Start: 06/15/21 11:53 Freq: Status: Active Protocol: Document 08/31/21 11:24 DCW (Rec: 08/31/21 12:02 DCW [id number]) Physical Therapy Assessment Goals Three Impairment Pt experiencing numbness down upper and fore arm and into hand Skilled Nursing Goal (LTG) Pt to report one full week without any radicular symptoms 08/17/21: good goal progress with decreasing radicular symptoms especially with PT. Just obtained home cervical traction unit. LTG Duration 09/16/21 Two Impairment Restricted cervical ROM Skilled Nursing Goal (LTG) Pt to increased cervical lateral flexion to 40? to improve mobility with head movement when driving 08/17/21: good goal progress, lateral cervical flexion improved to 35 degrees and rotation right improved to 65 deg, with patient noting improved ability to move head to drive LTG Duration 09/16/21 One Impairment Pt does not have an appropriate home exercise program Short Term Goal (STG) Pt to be independent and compliant with an appropriate HEP 08/17/21: goal progress, issued written HEP today. Will do ongoing progression to address flexibility, range of motion, postural correction 08/25/21: seated CS rotation w/ head nods, Stretching SCalene / UT/ LEv scap, added supine foam roller Ws, Ts, 1/2 Xs AROM and radial nerve glide. STG Duration ongoing Employment Case Manager Goal (LTG) finalize patient HEP with patient able to demonstrate good performance with appropriate technique for HEP. LTG Duration 09/16/21 Assessment Summary Assessment Pt tolerated recent additions to HEP well, showing decreased soft tissue tone bilaterally along paraspinals. Pt feeling more comfortable with her home traction. Physical Therapy Plan Frequency and Duration Frequency of Treatment 2x/Week Duration of Treatment 4 weeks Plan of Care Start Date 08/18/21 Plan of Care End Date 09/16/21 Therapeutic Interventions Therapeutic Interventions Home Exercise Program,Joint Mobilizations,Manual Therapy, Neuromuscular Re-education, Patient/Caregiver Education, Self-Care/Home Management,Soft Tissue Mobilization, Therapeutic Activities, Therapeutic Exercises Modalities Cold Pack/Ice Massage,Electric Stimulation,Hot Packs, Traction- Mechanical, Ultrasound Next Visit Focus/Plan Next Note Type Treatment Note Next Visit Plan Recheck added Ts, Ws, 1/2 X over foam roller, Next tx: can add TB and wall posture shld ER AROM. POC: Progress as tolerated for postural currection, flexibility, strengthening. Manual therapy and cervical traction prn.
--- NOTE | 2021-09-02 11:14 | PT.OTN ---
Current Diagnoses Radiculopathy, cervical region (09/02/21) Cervicalgia (09/02/21) Pain in thoracic spine (09/02/21) Physical Therapy Treatment Note PT-OP-A Visit Information Start: 06/15/21 11:53 Freq: Status: Active Protocol: Document 09/02/21 10:37 DCW (Rec: 09/02/21 11:13 DCW [id number]) Out-Patient Physical Therapy Visit Information Visit Information Visit Type Treatment Note Visit Note Arrived 7 min late Visit Start Time 10:37 Visit Stop Time 11:20 Total Visit Minutes 43 Visit Number 20 Number of SITE IDENTIFICATION SPECIALIST Visits 0 Evaluation Information Evaluation Date 06/15/21 PT-OP-B Current Condition Start: 06/15/21 11:53 Freq: Status: Active Protocol: Document 06/15/21 10:30 DCW (Rec: 06/15/21 12:50 DCW [id number]) Current Condition History of Current Condition Onset Date 02/11/21 Current Complaints Radicular cervical pain, R UE History of Current Condition Pt is a 60 year old female very well known to this clinic returning with complaints of cervical and thoracic pain with radicular numbness and tingling along right UE. Pt has been treated at this clinic over the last few years for numerous physical deficits, most recently starting in March 2021 following lumbar fusion/lami on 02/11/21. Pt's low back has largely recovered, however pt does note that since surgery, she has been having increased cervical and thoracic pain, as well as radicular symptoms down her right arm. Pt did undergo a cervical MRI on 06/13, however results are not available at this time. 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 Prior Treatments and Tests Lumbar laminectomy 02/11/21 Cervical MRI 06/13/21 PT-OP-C Subjective Start: 06/15/21 11:53 Freq: Status: Active Protocol: Document 09/02/21 10:37 DCW (Rec: 09/02/21 11:13 DCW [id number]) OP-PT Subjective Patient Comments Patient Comments Pt feeling well overall, doing well with her home traction. PT-OP-F Manual Assessment Start: 06/15/21 11:53 Freq: Status: Active Protocol: Document 06/15/21 10:30 DCW (Rec: 06/15/21 14:47 DCW [id number]) Manual Assessments Soft Tissue Assessment Soft Tissue Mobility Assessment Moderate tone with tenderness to palpation 2/4: pain with wincing along r rhomboids, r subscap, r upper trap Joint Mobility Assessment Joint Mobility Assessment Mild R scapula winging, decreased p->a mobility of C3- 7 PT-OP-K Range of Motion Start: 06/15/21 11:53 Freq: Status: Active Protocol: Document 06/15/21 10:30 DCW (Rec: 06/15/21 14:47 DCW [id number]) Cervical Spine Range of Motion Cervical Spine Active Degrees Testing Position Sitting Flexion 55 Extension 50 Rotation Left 60 Rotation Right 55 Lateral Flexion Left 25 Lateral Flexion Right 25 ROM Limitations Soft Tissue Tightness,Bony Restriction,Muscle Tone,Pain PT-OP-L Special Tests Start: 06/15/21 11:53 Freq: Status: Active Protocol: Document 06/15/21 10:30 DCW (Rec: 06/15/21 14:47 DCW [id number]) Special Tests Cervical Spine Special Tests Slump Test Results Negative Traction Test Results Relief Spurling's Test Test Results Increased R radiculopathy Foraminal Compression Test Results Increased R radiculopathy PT-OP-M Strength Start: 06/15/21 11:53 Freq: Status: Active Protocol: Document 06/15/21 10:30 DCW (Rec: 06/15/21 14:47 DCW [id number]) Shoulder Strength Shoulder Manual Muscle Testing Right Flexion 3+ Fair+ Abduction (C5) 4+ Good+ Adduction 4+ Good+ External Rotation 4+ Good+ Internal Rotation 4+ Good+ Left Flexion 4+ Good+ Abduction (C5) 4+ Good+ Adduction 4+ Good+ External Rotation 4+ Good+ Internal Rotation 4+ Good+ PT-OP-Q Treatments Start: 06/15/21 11:53 Freq: Status: Active Protocol: Document 09/02/21 10:37 DCW (Rec: 09/02/21 11:13 DCW [id number]) Manual Therapy Treatment Soft Tissue Mobilization 2 Body Location CS paraspinals, L>R lev scap, L UT, L pec minor Mobilization Type Strumming,Sustained Pressure, Trigger Point Release Intensity/Depth Moderate Body Position Supine Comments Significant tightness, improved with srumming and sustained pressure. 1 Body Location Upper trap Mobilization Type Strumming,Sustained Pressure, Trigger Point Release Intensity/Depth Moderate Body Position Hooklying Joint Mobilizations 1 Joint Scapulothoracic Direction Lateral Grade III Body Position Hooklying Manual Traction Cervical Details Cervical traction Body Position Hooklying Reps/Duration 1 min Comments good relaxed deeper breathes PT-OP-R Modalities Start: 06/15/21 11:53 Freq: Status: Active Protocol: Document 09/02/21 10:37 DCW (Rec: 09/02/21 11:14 DCW [id number]) Spinal Traction Traction Treatment Cervical Method Mechanical,Static Patient Position Hooklying Force Applied (Pounds) 20 Duration of Treatment (Minutes) 10 Traction Treatment Comment Good feedback response. Pain free. PT-OP-T Assessment and Plan Start: 06/15/21 11:53 Freq: Status: Active Protocol: Document 09/02/21 10:37 DCW (Rec: 09/02/21 11:13 DCW [id number]) Physical Therapy Assessment Goals Three Impairment Pt experiencing numbness down upper and fore arm and into hand Vp Transportation Goal (LTG) Pt to report one full week without any radicular symptoms 08/17/21: good goal progress with decreasing radicular symptoms especially with PT. Just obtained home cervical traction unit. LTG Duration 09/16/21 Two Impairment Restricted cervical ROM Nursing Home Goal (LTG) Pt to increased cervical lateral flexion to 40? to improve mobility with head movement when driving 08/17/21: good goal progress, lateral cervical flexion improved to 35 degrees and rotation right improved to 65 deg, with patient noting improved ability to move head to drive LTG Duration 09/16/21 One Impairment Pt does not have an appropriate home exercise program Short Term Goal (STG) Pt to be independent and compliant with an appropriate HEP 08/17/21: goal progress, issued written HEP today. Will do ongoing progression to address flexibility, range of motion, postural correction 08/25/21: seated CS rotation w/ head nods, Stretching SCalene / UT/ LEv scap, added supine foam roller Ws, Ts, 1/2 Xs AROM and radial nerve glide. STG Duration ongoing Vp Transportation Goal (LTG) finalize patient HEP with patient able to demonstrate good performance with appropriate technique for HEP. LTG Duration 09/16/21 Assessment Summary Assessment Pt presenting with less tone today, showing improved mobility and pain levels. Physical Therapy Plan Frequency and Duration Frequency of Treatment 2x/Week Duration of Treatment 4 weeks Plan of Care Start Date 08/18/21 Plan of Care End Date 09/16/21 Therapeutic Interventions Therapeutic Interventions Home Exercise Program,Joint Mobilizations,Manual Therapy, Neuromuscular Re-education, Patient/Caregiver Education, Self-Care/Home Management,Soft Tissue Mobilization, Therapeutic Activities, Therapeutic Exercises Modalities Cold Pack/Ice Massage,Electric Stimulation,Hot Packs, Traction- Mechanical, Ultrasound Next Visit Focus/Plan Next Note Type Treatment Note Next Visit Plan Recheck added Ts, Ws, 1/2 X over foam roller, Next tx: can add TB and wall posture shld ER AROM. POC: Progress as tolerated for postural currection, flexibility, strengthening. Manual therapy and cervical traction prn.
--- NOTE | 2021-09-06 14:31 | PT.OTN ---
Current Diagnoses Radiculopathy, cervical region (09/06/21) Cervicalgia (09/06/21) Pain in thoracic spine (09/06/21) Physical Therapy Treatment Note PT-OP-A Visit Information Start: 06/15/21 11:53 Freq: Status: Active Protocol: Document 09/06/21 13:49 DCW (Rec: 09/06/21 14:30 DCW [id number]) Out-Patient Physical Therapy Visit Information Visit Information Visit Type Treatment Note Visit Start Time 13:49 Visit Stop Time 14:30 Total Visit Minutes 41 Visit Number 21 Number of WHEEL ASSEMBLER Visits 0 Evaluation Information Evaluation Date 06/15/21 PT-OP-B Current Condition Start: 06/15/21 11:53 Freq: Status: Active Protocol: Document 06/15/21 10:30 DCW (Rec: 06/15/21 12:50 DCW [id number]) Current Condition History of Current Condition Onset Date 02/11/21 Current Complaints Radicular cervical pain, R UE History of Current Condition Pt is a 60 year old female very well known to this clinic returning with complaints of cervical and thoracic pain with radicular numbness and tingling along right UE. Pt has been treated at this clinic over the last few years for numerous physical deficits, most recently starting in March 2021 following lumbar fusion/lami on 02/11/21. Pt's low back has largely recovered, however pt does note that since surgery, she has been having increased cervical and thoracic pain, as well as radicular symptoms down her right arm. Pt did undergo a cervical MRI on 06/13, however results are not available at this time. 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 Prior Treatments and Tests Lumbar laminectomy 02/11/21 Cervical MRI 06/13/21 PT-OP-C Subjective Start: 06/15/21 11:53 Freq: Status: Active Protocol: Document 09/06/21 13:49 DCW (Rec: 09/06/21 14:30 DCW [id number]) OP-PT Subjective Patient Comments Patient Comments Pt feeling good today, notes her neck is moving better overall. Still gets tingling down the arms, but not as bad as it used to be. Reports she slept well last night. PT-OP-F Manual Assessment Start: 06/15/21 11:53 Freq: Status: Active Protocol: Document 06/15/21 10:30 DCW (Rec: 06/15/21 14:47 DCW [id number]) Manual Assessments Soft Tissue Assessment Soft Tissue Mobility Assessment Moderate tone with tenderness to palpation 2/4: pain with wincing along r rhomboids, r subscap, r upper trap Joint Mobility Assessment Joint Mobility Assessment Mild R scapula winging, decreased p->a mobility of C3- 7 PT-OP-K Range of Motion Start: 06/15/21 11:53 Freq: Status: Active Protocol: Document 06/15/21 10:30 DCW (Rec: 06/15/21 14:47 DCW [id number]) Cervical Spine Range of Motion Cervical Spine Active Degrees Testing Position Sitting Flexion 55 Extension 50 Rotation Left 60 Rotation Right 55 Lateral Flexion Left 25 Lateral Flexion Right 25 ROM Limitations Soft Tissue Tightness,Bony Restriction,Muscle Tone,Pain PT-OP-L Special Tests Start: 06/15/21 11:53 Freq: Status: Active Protocol: Document 06/15/21 10:30 DCW (Rec: 06/15/21 14:47 DCW [id number]) Special Tests Cervical Spine Special Tests Slump Test Results Negative Traction Test Results Relief Spurling's Test Test Results Increased R radiculopathy Foraminal Compression Test Results Increased R radiculopathy PT-OP-M Strength Start: 06/15/21 11:53 Freq: Status: Active Protocol: Document 06/15/21 10:30 DCW (Rec: 06/15/21 14:47 DCW [id number]) Shoulder Strength Shoulder Manual Muscle Testing Right Flexion 3+ Fair+ Abduction (C5) 4+ Good+ Adduction 4+ Good+ External Rotation 4+ Good+ Internal Rotation 4+ Good+ Left Flexion 4+ Good+ Abduction (C5) 4+ Good+ Adduction 4+ Good+ External Rotation 4+ Good+ Internal Rotation 4+ Good+ PT-OP-Q Treatments Start: 06/15/21 11:53 Freq: Status: Active Protocol: Document 09/06/21 13:49 DCW (Rec: 09/06/21 14:30 DCW [id number]) Manual Therapy Treatment Soft Tissue Mobilization 2 Body Location CS paraspinals, L>R lev scap, L UT, L pec minor Mobilization Type Strumming,Sustained Pressure, Trigger Point Release Intensity/Depth Moderate Body Position Supine Comments Significant tightness, improved with srumming and sustained pressure. 1 Body Location Upper trap Mobilization Type Strumming,Sustained Pressure, Trigger Point Release Intensity/Depth Moderate Body Position Hooklying Joint Mobilizations 1 Joint Scapulothoracic Direction Lateral Grade III Body Position Hooklying Manual Traction Cervical Details Cervical traction Body Position Hooklying Reps/Duration 1 min Comments good relaxed deeper breathes PT-OP-R Modalities Start: 06/15/21 11:53 Freq: Status: Active Protocol: Document 09/02/21 10:37 DCW (Rec: 09/02/21 11:14 DCW [id number]) Spinal Traction Traction Treatment Cervical Method Mechanical,Static Patient Position Hooklying Force Applied (Pounds) 20 Duration of Treatment (Minutes) 10 Traction Treatment Comment Good feedback response. Pain free. PT-OP-T Assessment and Plan Start: 06/15/21 11:53 Freq: Status: Active Protocol: Document 09/06/21 13:49 DCW (Rec: 09/06/21 14:30 DCW [id number]) Physical Therapy Assessment Goals Three Impairment Pt experiencing numbness down upper and fore arm and into hand Hhas Goal (LTG) Pt to report one full week without any radicular symptoms 08/17/21: good goal progress with decreasing radicular symptoms especially with PT. Just obtained home cervical traction unit. LTG Duration 09/16/21 Two Impairment Restricted cervical ROM Hhas Goal (LTG) Pt to increased cervical lateral flexion to 40? to improve mobility with head movement when driving 08/17/21: good goal progress, lateral cervical flexion improved to 35 degrees and rotation right improved to 65 deg, with patient noting improved ability to move head to drive LTG Duration 09/16/21 One Impairment Pt does not have an appropriate home exercise program Short Term Goal (STG) Pt to be independent and compliant with an appropriate HEP 08/17/21: goal progress, issued written HEP today. Will do ongoing progression to address flexibility, range of motion, postural correction 08/25/21: seated CS rotation w/ head nods, Stretching SCalene / UT/ LEv scap, added supine foam roller Ws, Ts, 1/2 Xs AROM and radial nerve glide. STG Duration ongoing Half-Way Goal (LTG) finalize patient HEP with patient able to demonstrate good performance with appropriate technique for HEP. LTG Duration 09/16/21 Assessment Summary Assessment Pt tolerated treatment very well today, no complaints with ongoing HEP. Pt able to use home traction Physical Therapy Plan Frequency and Duration Frequency of Treatment 2x/Week Duration of Treatment 4 weeks Plan of Care Start Date 08/18/21 Plan of Care End Date 09/16/21 Therapeutic Interventions Therapeutic Interventions Home Exercise Program,Joint Mobilizations,Manual Therapy, Neuromuscular Re-education, Patient/Caregiver Education, Self-Care/Home Management,Soft Tissue Mobilization, Therapeutic Activities, Therapeutic Exercises Modalities Cold Pack/Ice Massage,Electric Stimulation,Hot Packs, Traction- Mechanical, Ultrasound Next Visit Focus/Plan Next Note Type Treatment Note Next Visit Plan Recheck added Ts, Ws, 1/2 X over foam roller, Next tx: can add TB and wall posture shld ER AROM. POC: Progress as tolerated for postural currection, flexibility, strengthening. Manual therapy and cervical traction prn.
--- NOTE | 2021-09-08 14:29 | PT.OTN ---
Current Diagnoses Radiculopathy, cervical region (09/08/21) Cervicalgia (09/08/21) Pain in thoracic spine (09/08/21) Physical Therapy Treatment Note PT-OP-A Visit Information Start: 06/15/21 11:53 Freq: Status: Active Protocol: Document 09/08/21 13:45 DCW (Rec: 09/08/21 14:29 DCW [id number]) Out-Patient Physical Therapy Visit Information Visit Information Visit Type Treatment Note Visit Start Time 13:45 Visit Stop Time 14:35 Total Visit Minutes 50 Visit Number 22 Number of DIGITAL CARTOGRAPHER Visits 0 Evaluation Information Evaluation Date 06/15/21 PT-OP-B Current Condition Start: 06/15/21 11:53 Freq: Status: Active Protocol: Document 06/15/21 10:30 DCW (Rec: 06/15/21 12:50 DCW [id number]) Current Condition History of Current Condition Onset Date 02/11/21 Current Complaints Radicular cervical pain, R UE History of Current Condition Pt is a 60 year old female very well known to this clinic returning with complaints of cervical and thoracic pain with radicular numbness and tingling along right UE. Pt has been treated at this clinic over the last few years for numerous physical deficits, most recently starting in March 2021 following lumbar fusion/lami on 02/11/21. Pt's low back has largely recovered, however pt does note that since surgery, she has been having increased cervical and thoracic pain, as well as radicular symptoms down her right arm. Pt did undergo a cervical MRI on 06/13, however results are not available at this time. 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 Prior Treatments and Tests Lumbar laminectomy 02/11/21 Cervical MRI 06/13/21 PT-OP-C Subjective Start: 06/15/21 11:53 Freq: Status: Active Protocol: Document 09/08/21 13:45 DCW (Rec: 09/08/21 14:29 DCW [id number]) OP-PT Subjective Patient Comments Patient Comments I'm not in a lot of pain, so clearly it's better, but it's still tight. PT-OP-F Manual Assessment Start: 06/15/21 11:53 Freq: Status: Active Protocol: Document 06/15/21 10:30 DCW (Rec: 06/15/21 14:47 DCW [id number]) Manual Assessments Soft Tissue Assessment Soft Tissue Mobility Assessment Moderate tone with tenderness to palpation 2/4: pain with wincing along r rhomboids, r subscap, r upper trap Joint Mobility Assessment Joint Mobility Assessment Mild R scapula winging, decreased p->a mobility of C3- 7 PT-OP-K Range of Motion Start: 06/15/21 11:53 Freq: Status: Active Protocol: Document 06/15/21 10:30 DCW (Rec: 06/15/21 14:47 DCW [id number]) Cervical Spine Range of Motion Cervical Spine Active Degrees Testing Position Sitting Flexion 55 Extension 50 Rotation Left 60 Rotation Right 55 Lateral Flexion Left 25 Lateral Flexion Right 25 ROM Limitations Soft Tissue Tightness,Bony Restriction,Muscle Tone,Pain PT-OP-L Special Tests Start: 06/15/21 11:53 Freq: Status: Active Protocol: Document 06/15/21 10:30 DCW (Rec: 06/15/21 14:47 DCW [id number]) Special Tests Cervical Spine Special Tests Slump Test Results Negative Traction Test Results Relief Spurling's Test Test Results Increased R radiculopathy Foraminal Compression Test Results Increased R radiculopathy PT-OP-M Strength Start: 06/15/21 11:53 Freq: Status: Active Protocol: Document 06/15/21 10:30 DCW (Rec: 06/15/21 14:47 DCW [id number]) Shoulder Strength Shoulder Manual Muscle Testing Right Flexion 3+ Fair+ Abduction (C5) 4+ Good+ Adduction 4+ Good+ External Rotation 4+ Good+ Internal Rotation 4+ Good+ Left Flexion 4+ Good+ Abduction (C5) 4+ Good+ Adduction 4+ Good+ External Rotation 4+ Good+ Internal Rotation 4+ Good+ PT-OP-Q Treatments Start: 06/15/21 11:53 Freq: Status: Active Protocol: Document 09/08/21 13:45 DCW (Rec: 09/08/21 14:29 DCW [id number]) Manual Therapy Treatment Soft Tissue Mobilization 2 Body Location CS paraspinals, L>R lev scap, L UT, L pec minor Mobilization Type Strumming,Sustained Pressure, Trigger Point Release Intensity/Depth Moderate Body Position Supine Comments Significant tightness, improved with srumming and sustained pressure. 1 Body Location Upper trap Mobilization Type Strumming,Sustained Pressure, Trigger Point Release Intensity/Depth Moderate Body Position Hooklying Joint Mobilizations 1 Joint Scapulothoracic Direction Lateral Grade III Body Position Hooklying Manual Traction Cervical Details Cervical traction Body Position Hooklying Reps/Duration 1 min Comments good relaxed deeper breathes PT-OP-R Modalities Start: 06/15/21 11:53 Freq: Status: Active Protocol: Document 09/08/21 13:45 DCW (Rec: 09/08/21 14:29 DCW [id number]) Spinal Traction Traction Treatment Cervical Method Mechanical,Static Patient Position Hooklying Force Applied (Pounds) 20 Duration of Treatment (Minutes) 10 Traction Treatment Comment Good feedback response. Pain free. PT-OP-T Assessment and Plan Start: 06/15/21 11:53 Freq: Status: Active Protocol: Document 09/08/21 13:45 DCW (Rec: 09/08/21 14:29 DCW [id number]) Physical Therapy Assessment Goals Three Impairment Pt experiencing numbness down upper and fore arm and into hand Intermediate Goal (LTG) Pt to report one full week without any radicular symptoms 08/17/21: good goal progress with decreasing radicular symptoms especially with PT. Just obtained home cervical traction unit. 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 to improve mobility with head movement when driving 08/17/21: good goal progress, lateral cervical flexion improved to 35 degrees and rotation right improved to 65 deg, with patient noting improved ability to move head to drive LTG Duration 09/16/21 One Impairment Pt does not have an appropriate home exercise program Short Term Goal (STG) Pt to be independent and compliant with an appropriate HEP 08/17/21: goal progress, issued written HEP today. Will do ongoing progression to address flexibility, range of motion, postural correction 08/25/21: seated CS rotation w/ head nods, Stretching SCalene / UT/ LEv scap, added supine foam roller Ws, Ts, 1/2 Xs AROM and radial nerve glide. STG Duration ongoing Intermediate Goal (LTG) finalize patient HEP with patient able to demonstrate good performance with appropriate technique for HEP. LTG Duration 09/16/21 Assessment Summary Assessment Pt still showing some increased tone along R paraspinals, but less than she used to. Physical Therapy Plan Frequency and Duration Frequency of Treatment 2x/Week Duration of Treatment 4 weeks Plan of Care Start Date 08/18/21 Plan of Care End Date 09/16/21 Therapeutic Interventions Therapeutic Interventions Home Exercise Program,Joint Mobilizations,Manual Therapy, Neuromuscular Re-education, Patient/Caregiver Education, Self-Care/Home Management,Soft Tissue Mobilization, Therapeutic Activities, Therapeutic Exercises Modalities Cold Pack/Ice Massage,Electric Stimulation,Hot Packs, Traction- Mechanical, Ultrasound Next Visit Focus/Plan Next Note Type Treatment Note Next Visit Plan Recheck added Ts, Ws, 1/2 X over foam roller, Next tx: can add TB and wall posture shld ER AROM. POC: Progress as tolerated for postural currection, flexibility, strengthening. Manual therapy and cervical traction prn.
--- NOTE | 2021-10-17 17:42 | PT.OPDS ---
Current Diagnoses Radiculopathy, cervical region (09/08/21) Cervicalgia (09/08/21) Pain in thoracic spine (09/08/21) Visit Care Team Role Provider Type Gilberto Iyer MD Attending Provider Physician Primary Care Provider Referring Provider Specialty: Family Practice Address: [facility] [place], [address] Email: [email or web address] Visit Number Visit Number 22 Discharge Summary PT-OP-B Current Condition Start: 06/15/21 11:53 Freq: Status: Active Protocol: Document 06/15/21 10:30 DCW (Rec: 06/15/21 12:50 DCW [id number]) Current Condition History of Current Condition Onset Date 02/11/21 Current Complaints Radicular cervical pain, R UE History of Current Condition Pt is a 60 year old female very well known to this clinic returning with complaints of cervical and thoracic pain with radicular numbness and tingling along right UE. Pt has been treated at this clinic over the last few years for numerous physical deficits, most recently starting in March 2021 following lumbar fusion/lami on 02/11/21. Pt's low back has largely recovered, however pt does note that since surgery, she has been having increased cervical and thoracic pain, as well as radicular symptoms down her right arm. Pt did undergo a cervical MRI on 06/13, however results are not available at this time. 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 Prior Treatments and Tests Lumbar laminectomy 02/11/21 Cervical MRI 06/13/21 PT-OP-C Subjective Start: 06/15/21 11:53 Freq: Status: Active Protocol: Document 09/08/21 13:45 DCW (Rec: 09/08/21 14:29 DCW [id number]) OP-PT Subjective Patient Comments Patient Comments I'm not in a lot of pain, so clearly it's better, but it's still tight. PT-OP-F Manual Assessment Start: 06/15/21 11:53 Freq: Status: Active Protocol: Document 06/15/21 10:30 DCW (Rec: 06/15/21 14:47 DCW [id number]) Manual Assessments Soft Tissue Assessment Soft Tissue Mobility Assessment Moderate tone with tenderness to palpation 2/4: pain with wincing along r rhomboids, r subscap, r upper trap Joint Mobility Assessment Joint Mobility Assessment Mild R scapula winging, decreased p->a mobility of C3- 7 PT-OP-K Range of Motion Start: 06/15/21 11:53 Freq: Status: Active Protocol: Document 06/15/21 10:30 DCW (Rec: 06/15/21 14:47 DCW [id number]) Cervical Spine Range of Motion Cervical Spine Active Degrees Testing Position Sitting Flexion 55 Extension 50 Rotation Left 60 Rotation Right 55 Lateral Flexion Left 25 Lateral Flexion Right 25 ROM Limitations Soft Tissue Tightness,Bony Restriction,Muscle Tone,Pain PT-OP-L Special Tests Start: 06/15/21 11:53 Freq: Status: Active Protocol: Document 06/15/21 10:30 DCW (Rec: 06/15/21 14:47 DCW [id number]) Special Tests Cervical Spine Special Tests Slump Test Results Negative Traction Test Results Relief Spurling's Test Test Results Increased R radiculopathy Foraminal Compression Test Results Increased R radiculopathy PT-OP-M Strength Start: 06/15/21 11:53 Freq: Status: Active Protocol: Document 06/15/21 10:30 DCW (Rec: 06/15/21 14:47 DCW [id number]) Shoulder Strength Shoulder Manual Muscle Testing Right Flexion 3+ Fair+ Abduction (C5) 4+ Good+ Adduction 4+ Good+ External Rotation 4+ Good+ Internal Rotation 4+ Good+ Left Flexion 4+ Good+ Abduction (C5) 4+ Good+ Adduction 4+ Good+ External Rotation 4+ Good+ Internal Rotation 4+ Good+ PT-OP-T Assessment and Plan Start: 06/15/21 11:53 Freq: Status: Active Protocol: Document 10/17/21 17:41 DCW (Rec: 10/17/21 17:42 DCW [id number]) Physical Therapy Assessment Assessment Summary Assessment Planned final visit unfortunately had to be canceled due to poor weather conditions, however pt had been doing very well, still appropriate for discharge at this time.
== END 2021-10-18 07:31 ==
LOC: PHYS 13:45
PROVIDERS: PCP Family Medicine; Referring Provider Family Medicine; Visit Provider Family Medicine
DX: M54.12 Radiculopathy, cervical region (principal); M54.2 Cervicalgia; M54.6 Pain in thoracic spine
CPT/HCPCS: 97012; 97110; 97140; 97162; 97535

== ENCOUNTER → 2021-11-09 08:13 | Outpatient (CLI) | payer OTHER, SELFPAY ==
--- NOTE | 2021-11-09 | DI.MG.S_ITS ---
BILATERAL DIGITAL SCREENING MAMMOGRAM 3D/2D WITH CAD: 11/09/2021 CLINICAL: Routine screening. Family history of breast cancer. Comparison is made to exams dated: 11/11/2019 mammogram, 10/19/2017 mammogram, and 12/15/2015 mammogram - [facility]. The tissue of both breasts is heterogeneously dense. This may lower the sensitivity of mammography. Current study was also evaluated with a Computer Aided Detection (CAD) system. No significant masses, calcifications, or other findings are seen in either breast. There has been no significant interval change. IMPRESSION: NEGATIVE There is no mammographic evidence of malignancy. A 1 year screening mammogram is recommended. This exam was interpreted at Station ID: [id number]. NOTE: For mammograms, a report in lay terms will be sent to the patient. Approximately 15% of breast malignancies will not be visualized mammographically. In the management of a palpable breast mass, a negative mammogram must not discourage biopsy of a clinically suspicious lesion. Electronically Signed By: Chas Rangel M.D., jr/brian:11/09/2021 09:35:40 letter sent: Normal Exam ACR BI-RADS Category 1: Negative [id number]
== END ==
PROVIDERS: PCP Family Medicine; Referring Provider Family Medicine; Visit Provider Family Medicine
DX: Z12.31 Encounter for screening mammogram for malignant neoplasm of breast (principal); Z80.3 Family history of malignant neoplasm of breast
CPT/HCPCS: 77063; 77067

== ENCOUNTER → 2022-12-01 15:22 | Outpatient (CLI) | payer OTHER, SELFPAY ==
--- NOTE | 2022-12-01 15:24 | DI.RAD.S_ITS ---
PROCEDURE: XR HIP W PEL IF DONE LT 2V INDICATIONS: PAIN IN LEFT HIP TECHNIQUE: AP pelvis with lateral view(s) of the left hip(s). COMPARISON: [facility], CR, XR HIP W PEL IF DONE SANDY 3TO4V, 07/29/2019, 16:04. FINDINGS: Bones: No fractures or dislocations. Pelvic ring appears intact. No suspicious bony lesions. Mild bilateral hip joint space narrowing and periarticular osteophyte formation. Lumbosacral fusion hardware is present. Soft tissues: The visualized bowel gas pattern is normal. No suspicious soft tissue calcifications. IMPRESSION: Bilateral hip osteoarthritis. No acute fracture. No osseous lesion. If symptoms and/or clinical suspicion for pathology persist, further assessment with repeat, or advanced imaging (e.g., CT, MRI, or bone scan) may be helpful for further assessment. Dictated by: Felton Mehta M.D. on 12/01/2022 at 16:36 Transcribed by: BELKYS on 12/01/2022 at 16:37 Approved by: Felton Mehta M.D. on 12/01/2022 at 16:56
== END ==
PROVIDERS: PCP Family Medicine; Referring Provider Family Medicine; Visit Provider Family Medicine
DX: M25.552 Pain in left hip (principal); M16.0 Bilateral primary osteoarthritis of hip
CPT/HCPCS: 73502

== ENCOUNTER 2023-04-18 14:45 | Outpatient (RCR) | payer OTHER, SELFPAY ==
--- NOTE | 2023-01-17 17:15 | PT.OIE ---
Current Diagnoses Polyosteoarthritis, unspecified (01/17/23) Pain in left hip (01/17/23) Stiffness of left hip, not elsewhere classified (01/17/23) Visit Care Team Role Provider Type Gilberto Iyer MD Attending Provider Physician Family Provider Primary Care Provider Referring Provider Specialty: Family Practice Address: [facility] [place], [address] Email: [email or web address] Physical Therapy Initial Evaluation PT-OP-A Visit Information Start: 01/17/23 16:44 Freq: Status: Active Protocol: Document 01/17/23 10:25 DCW (Rec: 01/17/23 17:15 DCW [id number]) Out-Patient Physical Therapy Visit Information Visit Information Visit Type Initial Evaluation Visit Start Time 10:25 Visit Stop Time 11:00 Total Visit Minutes 35 Visit Number 1 Number of BELT MAKER Visits 0 Evaluation Information Evaluation Date 01/17/23 PT-OP-B Current Condition Start: 01/17/23 16:44 Freq: Status: Active Protocol: Document 01/17/23 10:25 DCW (Rec: 01/17/23 17:15 DCW [id number]) Current Condition History of Current Condition Onset Date 2-3 month history Current Complaints left hip pain and stiffness History of Current Condition Pt is a 62 year old female presenting to skilled PT with a 2-3 month history of left hip pain and stiffness. Pt is very well known to this clinic , and has been treated for multiple different injuries and painful body parts, most recently following a lumbar surgery, and then again shortly afterward due to worsening neck pain, approximately 1.5 years ago. 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 Has had to exit early from her dance class a few times, and has even started occasionally using a cane if her hip is really bad. Notes she had a massage a few days ago, and that seemed to really help. Additionally, pt has done some stretching, which is also helping to improve her discomfort. Prior Treatments and Tests Hip X-ray: IMPRESSION: Bilateral hip osteoarthritis. No acute fracture. No osseous lesion. If symptoms and/or clinical suspicion for pathology persist, further assessment with repeat, or advanced imaging (e.g., CT, MRI, or bone scan) may be helpful for further assessment. per Felton Mehta M.D. on 2022 Treatment Goals Patient/Caregiver Goals Return to dancing with relatively minimal pain or stiffness PT-OP-C Subjective Start: 01/17/23 16:44 Freq: Status: Active Protocol: Document 01/17/23 10:25 DCW (Rec: 01/17/23 17:15 DCW [id number]) OP-PT Subjective Patient Comments Patient Comments I'm really hoping this is more of a tune-up, just a few sessions to get me on the right track, and get me out of here. OP-PT Pain Assessment Pain Assessment Grid Paper Pain Assessment Grid Completed Yes Location Left Anterior Hip Intensity 4 Scale Used Numeric (0 - 10) Description Pinching,Tightness PT-OP-F Manual Assessment Start: 01/17/23 16:44 Freq: Status: Active Protocol: Document 01/17/23 10:25 DCW (Rec: 01/17/23 17:15 DCW [id number]) Manual Assessments Soft Tissue Assessment Soft Tissue Mobility Assessment Hypertonia in hip flexors, glute med/TFL, and piriformis PT-OP-L Special Tests Start: 01/17/23 16:44 Freq: Status: Active Protocol: Document 01/17/23 10:25 DCW (Rec: 01/17/23 17:15 DCW [id number]) Special Tests Hip Special Tests Qiana's Test Test Results Positive Left Bryce Test Results Positive Left Lateral SI Compression Test Results Negative Piriformis Test Results Negative RAMONA Test Results Left anterior ipsilateral hip pain PT-OP-M Strength Start: 01/17/23 16:44 Freq: Status: Active Protocol: Document 01/17/23 10:25 DCW (Rec: 01/17/23 17:15 DCW [id number]) Hip Strength Hip Manual Muscle Testing Right Flexion (L2) 4+ Good+ Abduction 4+ Good+ Adduction 4+ Good+ External Rotation 4+ Good+ Internal Rotation 4+ Good+ Left Flexion (L2) 4 Good Abduction 4 Good Adduction 4 Good External Rotation 4 Good Internal Rotation 4- Good- PT-OP-Q Treatments Start: 01/17/23 16:44 Freq: Status: Active Protocol: Document 01/17/23 10:25 DCW (Rec: 01/17/23 17:15 DCW [id number]) Therapeutic Exercises Supine Exercises Bryce stretch Supine Exercise Name Bryce Stretch Side left Standing Exercises ITB Stretch Standing Exercise Name ITB stretch into wall Side left Hip Flexor stretch Standing Exercise Name Half-kneel hip flexor stretch Side left PT-OP-T Assessment and Plan Start: 01/17/23 16:44 Freq: Status: Active Protocol: Document 01/17/23 10:25 DCW (Rec: 01/17/23 17:15 [facility] [id number]) Physical Therapy Assessment Rehab Potential Rehabilitation Potential Excellent Evaluation Complexity Number of Personal Factors/Comorbidities 1-2 Number of Body Systems Impaired 1-2 Clinical Presentation at Evaluation Stable Impairments Impairments Functional Activities, Functional Mobility,Pain,Soft Tissue Mobility,Strength,Tone Goals Two Impairment Hip pain prevent's pt from fully participating in dance classes Longterm Goal (LTG) Pt to report participating in 4 straight dance classes without any increased hip pain or need to stop early due to hip stiffness/discomfort LTG Duration 03/19/23 One Impairment Pt does not have an appropriate home exercise program Short Term Goal (STG) Pt to be independent and compliant with an appropriate HEP STG Duration 02/17/23 Assessment Summary Assessment Pt presents with signs and symptoms of referring diagnosis of left hip arthritis, resulting in increased pain and muscle tone in the surrounding area. 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 testing shows hypertonia mainly in left hip flexors, but additionally in glute med, TFL, and piriformis . Pt should benefit from skilled therapy including hip stretching and strengthening, as well as a brief review of importance of core strengthening and abdominal bracing to help with hip and spine stability. Pt is hopeful that since she has undergone PT multiple times previously, and since she feels she is getting help before it gets too bad, she will be able to recover quickly and get back to participating in dance class. Physical Therapy Plan Frequency and Duration Frequency of Treatment 1x/Week Plan of Care Start Date 01/17/23 Plan of Care End Date 03/19/23 Therapeutic Interventions Therapeutic Interventions Home Exercise Program,Joint Mobilizations,Manual Therapy, Patient/Caregiver Education, Self-Care/Home Management,Soft Tissue Mobilization, Therapeutic Activities, Therapeutic Exercises Next Visit Focus/Plan Next Note Type Treatment Note Next Visit Plan Hip flexor and ITB stretching, hip strengthening
--- NOTE | 2023-01-17 17:16 | PT.OPPOC ---
Physical, Occupational & Speech Therapy At [facility] Current Diagnoses Polyosteoarthritis, unspecified (01/17/23) Pain in left hip (01/17/23) Stiffness of left hip, not elsewhere classified (01/17/23) Visit Care Team Role Provider Type Gilberto Iyer MD Attending Provider Physician Family Provider Primary Care Provider Referring Provider Specialty: [facility] Address: [facility] [place], [place], [facility] Email: [email or web address] Plan Of Care PT-OP-T Assessment and Plan Start: 01/17/23 16:44 Freq: Status: Active Protocol: Document 01/17/23 10:25 DCW (Rec: 01/17/23 17:15 DCW [id number]) Physical Therapy Assessment Rehab Potential Rehabilitation Potential Excellent Evaluation Complexity Number of Personal Factors/Comorbidities 1-2 Number of Body Systems Impaired 1-2 Clinical Presentation at Evaluation Stable Impairments Impairments Functional Activities, Functional Mobility,Pain,Soft Tissue Mobility,Strength,Tone Goals Two Impairment Hip pain prevent's pt from fully participating in dance classes Halfway Goal (LTG) Pt to report participating in 4 straight dance classes without any increased hip pain or need to stop early due to hip stiffness/discomfort LTG Duration 03/19/23 One Impairment Pt does not have an appropriate home exercise program Short Term Goal (STG) Pt to be independent and compliant with an appropriate HEP STG Duration 02/17/23 Assessment Summary Assessment Pt presents with signs and symptoms of referring diagnosis of left hip arthritis, resulting in increased pain and muscle tone in the surrounding area. 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 testing shows hypertonia mainly in left hip flexors, but additionally in glute med, TFL, and piriformis . Pt should benefit from skilled therapy including hip stretching and strengthening, as well as a brief review of importance of core strengthening and abdominal bracing to help with hip and spine stability. Pt is hopeful that since she has undergone PT multiple times previously, and since she feels she is getting help before it gets too bad, she will be able to recover quickly and get back to participating in dance class. Physical Therapy Plan Frequency and Duration Frequency of Treatment 1x/Week Plan of Care Start Date 01/17/23 Plan of Care End Date 03/19/23 Therapeutic Interventions Therapeutic Interventions Home Exercise Program,Joint Mobilizations,Manual Therapy, Patient/Caregiver Education, Self-Care/Home Management,Soft Tissue Mobilization, Therapeutic Activities, Therapeutic Exercises Next Visit Focus/Plan Next Note Type Treatment Note Next Visit Plan Hip flexor and ITB stretching, hip strengthening Plan of Care Dates Plan of Care Start Date 01/17/23 Plan of Care End Date 03/19/23 Electronically Signed by: Rudi Doyle, PT 01/17/23 1046 If you are in agreement with this Plan of Care, please return a signed and dated copy. I have reviewed this Plan of Care and certify that the skilled therapy services above are required to meet the patient?s needs. Physician Signature Date Printed Name and Credentials Clinical Instructor Signature Printed Name and Credentials
--- NOTE | 2023-01-24 13:29 | PT.OTN ---
Current Diagnoses Polyosteoarthritis, unspecified (01/24/23) Pain in left hip (01/24/23) Stiffness of left hip, not elsewhere classified (01/24/23) Physical Therapy Treatment Note PT-OP-A Visit Information Start: 01/17/23 16:44 Freq: Status: Active Protocol: Document 01/24/23 12:54 DCW (Rec: 01/24/23 13:29 DCW [id number]) Out-Patient Physical Therapy Visit Information Visit Information Visit Type Treatment Note Visit Note 9 minutes late Visit Start Time 12:54 Visit Stop Time 13:30 Total Visit Minutes 36 Visit Number 2 Number of AUTOMOTIVE GENERAL SALES MANAGER Visits 0 Evaluation Information Evaluation Date 01/17/23 PT-OP-B Current Condition Start: 01/17/23 16:44 Freq: Status: Active Protocol: Document 01/17/23 10:25 DCW (Rec: 01/17/23 17:15 DCW [id number]) Current Condition History of Current Condition Onset Date 2-3 month history Current Complaints left hip pain and stiffness History of Current Condition Pt is a 62 year old female presenting to skilled PT with a 2-3 month history of left hip pain and stiffness. Pt is very well known to this clinic , and has been treated for multiple different injuries and painful body parts, most recently following a lumbar surgery, and then again shortly afterward due to worsening neck pain, approximately 1.5 years ago. 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 Has had to exit early from her dance class a few times, and has even started occasionally using a cane if her hip is really bad. Notes she had a massage a few days ago, and that seemed to really help. Additionally, pt has done some stretching, which is also helping to improve her discomfort. Prior Treatments and Tests Hip X-ray: IMPRESSION: Bilateral hip osteoarthritis. No acute fracture. No osseous lesion. If symptoms and/or clinical suspicion for pathology persist, further assessment with repeat, or advanced imaging (e.g., CT, MRI, or bone scan) may be helpful for further assessment. per Felton Mehta M.D. on 2022 Treatment Goals Patient/Caregiver Goals Return to dancing with relatively minimal pain or stiffness PT-OP-C Subjective Start: 01/17/23 16:44 Freq: Status: Active Protocol: Document 01/24/23 12:54 DCW (Rec: 01/24/23 13:29 DCW [id number]) OP-PT Subjective Patient Comments Patient Comments I'm not using a cane, so it's still doing better than it was. PT-OP-F Manual Assessment Start: 01/17/23 16:44 Freq: Status: Active Protocol: Document 01/17/23 10:25 DCW (Rec: 01/17/23 17:15 DCW [id number]) Manual Assessments Soft Tissue Assessment Soft Tissue Mobility Assessment Hypertonia in hip flexors, glute med/TFL, and piriformis PT-OP-L Special Tests Start: 01/17/23 16:44 Freq: Status: Active Protocol: Document 01/17/23 10:25 DCW (Rec: 01/17/23 17:15 DCW [id number]) Special Tests Hip Special Tests Qiana's Test Test Results Positive Left Bryce Test Results Positive Left Lateral SI Compression Test Results Negative Piriformis Test Results Negative RAMONA Test Results Left anterior ipsilateral hip pain PT-OP-M Strength Start: 01/17/23 16:44 Freq: Status: Active Protocol: Document 01/17/23 10:25 DCW (Rec: 01/17/23 17:15 DCW [id number]) Hip Strength Hip Manual Muscle Testing Right Flexion (L2) 4+ Good+ Abduction 4+ Good+ Adduction 4+ Good+ External Rotation 4+ Good+ Internal Rotation 4+ Good+ Left Flexion (L2) 4 Good Abduction 4 Good Adduction 4 Good External Rotation 4 Good Internal Rotation 4- Good- PT-OP-Q Treatments Start: 01/17/23 16:44 Freq: Status: Active Protocol: Document 01/24/23 12:54 DCW (Rec: 01/24/23 13:29 DCW [id number]) Gym Equipment Cable Column (Body Solid) Hip Adduction Resistance 50# Hip Abduction Resistance 30# Shuttle Recovery Quad Hip Extension Details L Quadruped hip extension Resistance 37# Therapeutic Exercises Sidelying Exercises Psoas Sidelying Exercise Name Psoas stretch Side left Comments Manual stretch Standing Exercises Quad stretch Standing Exercise Name Standing quad stretch, heel to glute Side bilateral Other Exercises Resisted Ambulation Other Exercise Name Resisted side-stepping, fwd/ bkwd Resistance Green loop Manual Therapy Treatment Soft Tissue Mobilization ITB Body Location L ITB Mobilization Type Strumming,Sustained Pressure Intensity/Depth Moderate Body Position Sidelying Hip Flexors Body Location L Hip Flexor Mobilization Type Strumming,Sustained Pressure Intensity/Depth Deep Body Position Hooklying PT-OP-T Assessment and Plan Start: 01/17/23 16:44 Freq: Status: Active Protocol: Document 01/24/23 12:54 DCW (Rec: 01/24/23 13:29 DCW [id number]) Physical Therapy Assessment Assessment Summary Assessment Pt tolerated very well, added resisted ambulation and quad stretch to HEP. Feels comfortable with current exercises. Physical Therapy Plan Frequency and Duration Frequency of Treatment 1x/Week Plan of Care Start Date 01/17/23 Plan of Care End Date 03/19/23 Therapeutic Interventions Therapeutic Interventions Home Exercise Program,Joint Mobilizations,Manual Therapy, Patient/Caregiver Education, Self-Care/Home Management,Soft Tissue Mobilization, Therapeutic Activities, Therapeutic Exercises Next Visit Focus/Plan Next Note Type Treatment Note Next Visit Plan Hip flexor and ITB stretching, hip strengthening
--- NOTE | 2023-01-26 16:52 | PT.OTN ---
Current Diagnoses Polyosteoarthritis, unspecified (01/26/23) Pain in left hip (01/26/23) Stiffness of left hip, not elsewhere classified (01/26/23) Physical Therapy Treatment Note PT-OP-A Visit Information Start: 01/17/23 16:44 Freq: Status: Active Protocol: Document 01/26/23 16:02 DCW (Rec: 01/26/23 16:43 DCW [id number]) Out-Patient Physical Therapy Visit Information Visit Information Visit Type Treatment Note Visit Start Time 16:02 Visit Stop Time 16:45 Total Visit Minutes 43 Visit Number 3 Number of MAT PACKER Visits 0 Evaluation Information Evaluation Date 01/17/23 PT-OP-B Current Condition Start: 01/17/23 16:44 Freq: Status: Active Protocol: Document 01/17/23 10:25 DCW (Rec: 01/17/23 17:15 DCW [id number]) Current Condition History of Current Condition Onset Date 2-3 month history Current Complaints left hip pain and stiffness History of Current Condition Pt is a 62 year old female presenting to skilled PT with a 2-3 month history of left hip pain and stiffness. Pt is very well known to this clinic , and has been treated for multiple different injuries and painful body parts, most recently following a lumbar surgery, and then again shortly afterward due to worsening neck pain, approximately 1.5 years ago. 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 Has had to exit early from her dance class a few times, and has even started occasionally using a cane if her hip is really bad. Notes she had a massage a few days ago, and that seemed to really help. Additionally, pt has done some stretching, which is also helping to improve her discomfort. Prior Treatments and Tests Hip X-ray: IMPRESSION: Bilateral hip osteoarthritis. No acute fracture. No osseous lesion. If symptoms and/or clinical suspicion for pathology persist, further assessment with repeat, or advanced imaging (e.g., CT, MRI, or bone scan) may be helpful for further assessment. per Felton Mehta M.D. on 2022 Treatment Goals Patient/Caregiver Goals Return to dancing with relatively minimal pain or stiffness PT-OP-C Subjective Start: 01/17/23 16:44 Freq: Status: Active Protocol: Document 01/26/23 16:02 DCW (Rec: 01/26/23 16:43 DCW [id number]) OP-PT Subjective Patient Comments Patient Comments Feeling mostly goos, just need to get stronger. PT-OP-F Manual Assessment Start: 01/17/23 16:44 Freq: Status: Active Protocol: Document 01/17/23 10:25 DCW (Rec: 01/17/23 17:15 DCW [id number]) Manual Assessments Soft Tissue Assessment Soft Tissue Mobility Assessment Hypertonia in hip flexors, glute med/TFL, and piriformis PT-OP-L Special Tests Start: 01/17/23 16:44 Freq: Status: Active Protocol: Document 01/17/23 10:25 DCW (Rec: 01/17/23 17:15 DCW [id number]) Special Tests Hip Special Tests Qiana's Test Test Results Positive Left Bryce Test Results Positive Left Lateral SI Compression Test Results Negative Piriformis Test Results Negative RAMONA Test Results Left anterior ipsilateral hip pain PT-OP-M Strength Start: 01/17/23 16:44 Freq: Status: Active Protocol: Document 01/17/23 10:25 DCW (Rec: 01/17/23 17:15 DCW [id number]) Hip Strength Hip Manual Muscle Testing Right Flexion (L2) 4+ Good+ Abduction 4+ Good+ Adduction 4+ Good+ External Rotation 4+ Good+ Internal Rotation 4+ Good+ Left Flexion (L2) 4 Good Abduction 4 Good Adduction 4 Good External Rotation 4 Good Internal Rotation 4- Good- PT-OP-Q Treatments Start: 01/17/23 16:44 Freq: Status: Active Protocol: Document 01/26/23 16:02 DCW (Rec: 01/26/23 16:43 DCW [id number]) Gym Equipment Cable Column (Body Solid) Hip Adduction Resistance 50# Hip Abduction Resistance 30# Therapeutic Ball Bridging /c HS curl Exercise Details Bridging /c HS curl Ball Size/Color Red - 55 cm Body Position Supine Reps/Duration x10 Therapeutic Exercises Sidelying Exercises Reverse Clamshell Sidelying Exercise Name Reverse Clamshell Side bilateral Resistance Green Reps/Minutes x15 Clamshell Sidelying Exercise Name Clamshell Side bilateral Resistance Green Reps/Minutes x15 Psoas Sidelying Exercise Name Psoas stretch Side left Comments Manual stretch Standing Exercises Step-up Standing Exercise Name FERRARA Step-up with High Knee Side bilateral Resistance 5# BOSU Lunge Standing Exercise Name BOSU Lunge Side bilateral Other Exercises Resisted Ambulation Other Exercise Name Resisted side-stepping, fwd/ bkwd Resistance Green loop Manual Therapy Treatment Soft Tissue Mobilization ITB Body Location L ITB Mobilization Type Strumming,Sustained Pressure Intensity/Depth Moderate Body Position Sidelying Hip Flexors Body Location L Hip Flexor Mobilization Type Strumming,Sustained Pressure Intensity/Depth Deep Body Position Hooklying PT-OP-T Assessment and Plan Start: 01/17/23 16:44 Freq: Status: Active Protocol: Document 01/26/23 16:02 DCW (Rec: 01/26/23 16:52 DCW [id number]) Physical Therapy Assessment Impairments Impairments Functional Activities, Functional Mobility,Pain,Soft Tissue Mobility,Strength,Tone Goals Two Impairment Hip pain prevent's pt from fully participating in dance classes Fpc Goal (LTG) Pt to report participating in 4 straight dance classes without any increased hip pain or need to stop early due to hip stiffness/discomfort LTG Duration 03/19/23 One Impairment Pt does not have an appropriate home exercise program Short Term Goal (STG) Pt to be independent and compliant with an appropriate HEP STG Duration 02/17/23 Assessment Summary Assessment Pt tolerating strengthening well, not having any continuing soreness following treatment. Hoping to go on vacation to [place] in May, interested in exercises she can do with little to no equipment during her trip. Physical Therapy Plan Frequency and Duration Frequency of Treatment 1x/Week Plan of Care Start Date 01/17/23 Plan of Care End Date 03/19/23 Therapeutic Interventions Therapeutic Interventions Home Exercise Program,Joint Mobilizations,Manual Therapy, Patient/Caregiver Education, Self-Care/Home Management,Soft Tissue Mobilization, Therapeutic Activities, Therapeutic Exercises Next Visit Focus/Plan Next Note Type Treatment Note Next Visit Plan Hip flexor and ITB stretching, hip strengthening
--- NOTE | 2023-01-31 11:43 | PT.OTN ---
Current Diagnoses Polyosteoarthritis, unspecified (01/31/23) Pain in left hip (01/31/23) Stiffness of left hip, not elsewhere classified (01/31/23) Physical Therapy Treatment Note PT-OP-A Visit Information Start: 01/17/23 16:44 Freq: Status: Active Protocol: Document 01/31/23 11:05 DCW (Rec: 01/31/23 11:43 DCW [id number]) Out-Patient Physical Therapy Visit Information Visit Information Visit Type Treatment Note Visit Start Time 11:05 Visit Stop Time 11:45 Total Visit Minutes 40 Visit Number 4 Number of ELECTROPHYSIOLOGY TECHNOLOGIST Visits 0 Evaluation Information Evaluation Date 01/17/23 PT-OP-B Current Condition Start: 01/17/23 16:44 Freq: Status: Active Protocol: Document 01/17/23 10:25 DCW (Rec: 01/17/23 17:15 DCW [id number]) Current Condition History of Current Condition Onset Date 2-3 month history Current Complaints left hip pain and stiffness History of Current Condition Pt is a 62 year old female presenting to skilled PT with a 2-3 month history of left hip pain and stiffness. Pt is very well known to this clinic , and has been treated for multiple different injuries and painful body parts, most recently following a lumbar surgery, and then again shortly afterward due to worsening neck pain, approximately 1.5 years ago. 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 Has had to exit early from her dance class a few times, and has even started occasionally using a cane if her hip is really bad. Notes she had a massage a few days ago, and that seemed to really help. Additionally, pt has done some stretching, which is also helping to improve her discomfort. Prior Treatments and Tests Hip X-ray: IMPRESSION: Bilateral hip osteoarthritis. No acute fracture. No osseous lesion. If symptoms and/or clinical suspicion for pathology persist, further assessment with repeat, or advanced imaging (e.g., CT, MRI, or bone scan) may be helpful for further assessment. per Felton Mehta M.D. on 2022 Treatment Goals Patient/Caregiver Goals Return to dancing with relatively minimal pain or stiffness PT-OP-C Subjective Start: 01/17/23 16:44 Freq: Status: Active Protocol: Document 01/31/23 11:05 DCW (Rec: 01/31/23 11:43 DCW [id number]) OP-PT Subjective Patient Comments Patient Comments It's feeling like it's making progress. PT-OP-F Manual Assessment Start: 01/17/23 16:44 Freq: Status: Active Protocol: Document 01/17/23 10:25 DCW (Rec: 01/17/23 17:15 DCW [id number]) Manual Assessments Soft Tissue Assessment Soft Tissue Mobility Assessment Hypertonia in hip flexors, glute med/TFL, and piriformis PT-OP-L Special Tests Start: 01/17/23 16:44 Freq: Status: Active Protocol: Document 01/17/23 10:25 DCW (Rec: 01/17/23 17:15 DCW [id number]) Special Tests Hip Special Tests Qiana's Test Test Results Positive Left Bryce Test Results Positive Left Lateral SI Compression Test Results Negative Piriformis Test Results Negative RAMONA Test Results Left anterior ipsilateral hip pain PT-OP-M Strength Start: 01/17/23 16:44 Freq: Status: Active Protocol: Document 01/17/23 10:25 DCW (Rec: 01/17/23 17:15 DCW [id number]) Hip Strength Hip Manual Muscle Testing Right Flexion (L2) 4+ Good+ Abduction 4+ Good+ Adduction 4+ Good+ External Rotation 4+ Good+ Internal Rotation 4+ Good+ Left Flexion (L2) 4 Good Abduction 4 Good Adduction 4 Good External Rotation 4 Good Internal Rotation 4- Good- PT-OP-Q Treatments Start: 01/17/23 16:44 Freq: Status: Active Protocol: Document 01/31/23 11:05 DCW (Rec: 01/31/23 11:43 DCW [id number]) Gym Equipment Cable Column (Body Solid) Hip Adduction Resistance 60# Hip Abduction Resistance 40# Therapeutic Ball Bridging /c HS curl Exercise Details Bridging /c HS curl Ball Size/Color Red - 55 cm Body Position Supine Reps/Duration x10 Low Trunk Rotations Exercise Details LTR - hip/knee 90/90 on ball Ball Size/Color Red - 55 cm Body Position Hooklying Therapeutic Exercises Standing Exercises Step-up Standing Exercise Name FERRARA Step-up with High Knee Side bilateral Resistance 5# BOSU Lunge Standing Exercise Name BOSU Lunge Side bilateral Other Exercises BirdDog Other Exercise Name Alternating UE/LE lifts in quadruped Resisted Ambulation Other Exercise Name Resisted side-stepping, fwd/ bkwd Resistance Green loop Manual Therapy Treatment Soft Tissue Mobilization ITB Body Location L ITB Mobilization Type Strumming,Sustained Pressure Intensity/Depth Moderate Body Position Sidelying Hip Flexors Body Location L Hip Flexor Mobilization Type Strumming,Sustained Pressure Intensity/Depth Deep Body Position Hooklying PT-OP-T Assessment and Plan Start: 01/17/23 16:44 Freq: Status: Active Protocol: Document 01/31/23 11:05 DCW (Rec: 01/31/23 11:43 DCW [id number]) Physical Therapy Assessment Impairments Impairments Functional Activities, Functional Mobility,Pain,Soft Tissue Mobility,Strength,Tone Goals Two Impairment Hip pain prevent's pt from fully participating in dance classes Director Corporate Sales Goal (LTG) Pt to report participating in 4 straight dance classes without any increased hip pain or need to stop early due to hip stiffness/discomfort LTG Duration 03/19/23 One Impairment Pt does not have an appropriate home exercise program Short Term Goal (STG) Pt to be independent and compliant with an appropriate HEP STG Duration 02/17/23 Assessment Summary Assessment Pt showing good progress already, doing well with improved hip strength and increased functional mobility. Physical Therapy Plan Frequency and Duration Frequency of Treatment 1x/Week Plan of Care Start Date 01/17/23 Plan of Care End Date 03/19/23 Therapeutic Interventions Therapeutic Interventions Home Exercise Program,Joint Mobilizations,Manual Therapy, Patient/Caregiver Education, Self-Care/Home Management,Soft Tissue Mobilization, Therapeutic Activities, Therapeutic Exercises Next Visit Focus/Plan Next Note Type Treatment Note Next Visit Plan Hip flexor and ITB stretching, hip strengthening
--- NOTE | 2023-02-15 13:34 | PT.OTN ---
Current Diagnoses Polyosteoarthritis, unspecified (02/15/23) Pain in left hip (02/15/23) Stiffness of left hip, not elsewhere classified (02/15/23) Physical Therapy Treatment Note PT-OP-A Visit Information Start: 01/17/23 16:44 Freq: Status: Active Protocol: Document 02/15/23 12:51 SP (Rec: 02/15/23 13:38 SP [id number]) Out-Patient Physical Therapy Visit Information Visit Information Visit Type Treatment Note Visit Start Time 12:51 Visit Stop Time 13:34 Total Visit Minutes 43 Visit Number 5 Number of LAP WINDING MACHINE OPERATOR Visits 1 Evaluation Information Evaluation Date 01/17/23 PT-OP-B Current Condition Start: 01/17/23 16:44 Freq: Status: Active Protocol: Document 01/17/23 10:25 DCW (Rec: 01/17/23 17:15 DCW [id number]) Current Condition History of Current Condition Onset Date 2-3 month history Current Complaints left hip pain and stiffness History of Current Condition Pt is a 62 year old female presenting to skilled PT with a 2-3 month history of left hip pain and stiffness. Pt is very well known to this clinic , and has been treated for multiple different injuries and painful body parts, most recently following a lumbar surgery, and then again shortly afterward due to worsening neck pain, approximately 1.5 years ago. 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 Has had to exit early from her dance class a few times, and has even started occasionally using a cane if her hip is really bad. Notes she had a massage a few days ago, and that seemed to really help. Additionally, pt has done some stretching, which is also helping to improve her discomfort. Prior Treatments and Tests Hip X-ray: IMPRESSION: Bilateral hip osteoarthritis. No acute fracture. No osseous lesion. If symptoms and/or clinical suspicion for pathology persist, further assessment with repeat, or advanced imaging (e.g., CT, MRI, or bone scan) may be helpful for further assessment. per Felton Mehta M.D. on 2022 Treatment Goals Patient/Caregiver Goals Return to dancing with relatively minimal pain or stiffness PT-OP-C Subjective Start: 01/17/23 16:44 Freq: Status: Active Protocol: Document 02/15/23 12:51 SP (Rec: 02/15/23 13:38 SP [id number]) OP-PT Subjective Patient Comments Patient Comments Pt reports having to drive more lately and little time for self, achy/tired across [place] . Is trying to incorporate HEP and breath to allow decrease tension and core fac. Pt reports less of feeling hip going to go out. PT-OP-F Manual Assessment Start: 01/17/23 16:44 Freq: Status: Active Protocol: Document 01/17/23 10:25 DCW (Rec: 01/17/23 17:15 DCW [id number]) Manual Assessments Soft Tissue Assessment Soft Tissue Mobility Assessment Hypertonia in hip flexors, glute med/TFL, and piriformis PT-OP-L Special Tests Start: 01/17/23 16:44 Freq: Status: Active Protocol: Document 01/17/23 10:25 DCW (Rec: 01/17/23 17:15 DCW [id number]) Special Tests Hip Special Tests Qiana's Test Test Results Positive Left Bryce Test Results Positive Left Lateral SI Compression Test Results Negative Piriformis Test Results Negative RAMONA Test Results Left anterior ipsilateral hip pain PT-OP-M Strength Start: 01/17/23 16:44 Freq: Status: Active Protocol: Document 01/17/23 10:25 DCW (Rec: 01/17/23 17:15 DCW [id number]) Hip Strength Hip Manual Muscle Testing Right Flexion (L2) 4+ Good+ Abduction 4+ Good+ Adduction 4+ Good+ External Rotation 4+ Good+ Internal Rotation 4+ Good+ Left Flexion (L2) 4 Good Abduction 4 Good Adduction 4 Good External Rotation 4 Good Internal Rotation 4- Good- PT-OP-Q Treatments Start: 01/17/23 16:44 Freq: Status: Active Protocol: Document 02/15/23 12:51 SP (Rec: 02/15/23 13:38 SP [id number]) Gym Equipment Therapeutic Ball Bridging /c HS curl Exercise Details Bridging /c HS curl (arms across abdomen) Ball Size/Color Red - 55 cm Body Position Supine Reps/Duration x10 Low Trunk Rotations Exercise Details LTR - hip/knee 90/90 on ball Ball Size/Color Red - 55 cm Body Position Hooklying Reps/Duration x10 Comments AROM Therapeutic Exercises Standing Exercises BOSU Lungismael Standing Exercise Name HAYES Thomas (fwd, lateral) Side bilateral Reps/Minutes x10 Comments cued elongation of trunk, opp LE high knee, glut fac full hip ext/ PPT Manual Therapy Treatment Soft Tissue Mobilization back Body Location B paraspinal, ES, scar mob Mobilization Type Instrument Assisted,Myofascial Release Body Position Prone Comments manual and use cupping- improvement in facial mobility ITB Body Location L ITB Mobilization Type Strumming,Sustained Pressure Intensity/Depth Moderate Body Position Sidelying Hip Flexors Body Location L Hip Flexor Mobilization Type Strumming,Sustained Pressure Intensity/Depth Deep Body Position Hooklying Joint Mobilizations L hip mob Comments inferiolateral w/ piriformis stretch positioning manual and self performance. see HO PT-OP-T Assessment and Plan Start: 01/17/23 16:44 Freq: Status: Active Protocol: Document 02/15/23 12:51 SP (Rec: 02/15/23 13:38 SP [id number]) Physical Therapy Assessment Goals Two Impairment Hip pain prevent's pt from fully participating in dance classes Jewelry Salesperson Goal (LTG) Pt to report participating in 4 straight dance classes without any increased hip pain or need to stop early due to hip stiffness/discomfort LTG Duration 03/19/23 One Impairment Pt does not have an appropriate home exercise program Short Term Goal (STG) Pt to be independent and compliant with an appropriate HEP STG Duration 02/17/23 Assessment Summary Assessment Pt responded well to manual and instruction self mob use strap. She stated wow my hip is moving better. Cues for elevated elongation core and glut heel press drive into stacked hip extension. Physical Therapy Plan Frequency and Duration Frequency of Treatment 1x/Week Plan of Care Start Date 01/17/23 Plan of Care End Date 03/19/23 Therapeutic Interventions Therapeutic Interventions Home Exercise Program,Joint Mobilizations,Manual Therapy, Patient/Caregiver Education, Self-Care/Home Management,Soft Tissue Mobilization, Therapeutic Activities, Therapeutic Exercises Next Visit Focus/Plan Next Note Type Treatment Note Next Visit Plan Assess response hip mob and self home. POC: Hip flexor and ITB stretching, hip strengthening
--- NOTE | 2023-02-21 14:46 | PT.OTN ---
Current Diagnoses Polyosteoarthritis, unspecified (02/21/23) Pain in left hip (02/21/23) Stiffness of left hip, not elsewhere classified (02/21/23) Physical Therapy Treatment Note PT-OP-A Visit Information Start: 01/17/23 16:44 Freq: Status: Active Protocol: Document 02/21/23 14:04 DCW (Rec: 02/21/23 14:46 DCW [id number]) Out-Patient Physical Therapy Visit Information Visit Information Visit Type Treatment Note Visit Start Time 14:04 Visit Stop Time 14:45 Total Visit Minutes 41 Visit Number 6 Number of ASSEMBLER WIRE MESH GATE Visits 0 Evaluation Information Evaluation Date 01/17/23 PT-OP-B Current Condition Start: 01/17/23 16:44 Freq: Status: Active Protocol: Document 01/17/23 10:25 DCW (Rec: 01/17/23 17:15 DCW [id number]) Current Condition History of Current Condition Onset Date 2-3 month history Current Complaints left hip pain and stiffness History of Current Condition Pt is a 62 year old female presenting to skilled PT with a 2-3 month history of left hip pain and stiffness. Pt is very well known to this clinic , and has been treated for multiple different injuries and painful body parts, most recently following a lumbar surgery, and then again shortly afterward due to worsening neck pain, approximately 1.5 years ago. 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 Has had to exit early from her dance class a few times, and has even started occasionally using a cane if her hip is really bad. Notes she had a massage a few days ago, and that seemed to really help. Additionally, pt has done some stretching, which is also helping to improve her discomfort. Prior Treatments and Tests Hip X-ray: IMPRESSION: Bilateral hip osteoarthritis. No acute fracture. No osseous lesion. If symptoms and/or clinical suspicion for pathology persist, further assessment with repeat, or advanced imaging (e.g., CT, MRI, or bone scan) may be helpful for further assessment. per Felton Mehta M.D. on 2022 Treatment Goals Patient/Caregiver Goals Return to dancing with relatively minimal pain or stiffness PT-OP-C Subjective Start: 01/17/23 16:44 Freq: Status: Active Protocol: Document 02/21/23 14:04 DCW (Rec: 02/21/23 14:46 DCW [id number]) OP-PT Subjective Patient Comments Patient Comments Pt reports she is still feeling better following her visit last week. PT-OP-F Manual Assessment Start: 01/17/23 16:44 Freq: Status: Active Protocol: Document 01/17/23 10:25 DCW (Rec: 01/17/23 17:15 DCW [id number]) Manual Assessments Soft Tissue Assessment Soft Tissue Mobility Assessment Hypertonia in hip flexors, glute med/TFL, and piriformis PT-OP-L Special Tests Start: 01/17/23 16:44 Freq: Status: Active Protocol: Document 01/17/23 10:25 DCW (Rec: 01/17/23 17:15 DCW [id number]) Special Tests Hip Special Tests Qiana's Test Test Results Positive Left Bryce Test Results Positive Left Lateral SI Compression Test Results Negative Piriformis Test Results Negative RAMONA Test Results Left anterior ipsilateral hip pain PT-OP-M Strength Start: 01/17/23 16:44 Freq: Status: Active Protocol: Document 01/17/23 10:25 DCW (Rec: 01/17/23 17:15 DCW [id number]) Hip Strength Hip Manual Muscle Testing Right Flexion (L2) 4+ Good+ Abduction 4+ Good+ Adduction 4+ Good+ External Rotation 4+ Good+ Internal Rotation 4+ Good+ Left Flexion (L2) 4 Good Abduction 4 Good Adduction 4 Good External Rotation 4 Good Internal Rotation 4- Good- PT-OP-Q Treatments Start: 01/17/23 16:44 Freq: Status: Active Protocol: Document 02/21/23 14:04 DCW (Rec: 02/21/23 14:46 DCW [id number]) Manual Therapy Treatment Soft Tissue Mobilization back Body Location B paraspinal, ES, scar mob Mobilization Type Instrument Assisted,Myofascial Release Body Position Prone Comments manual ITB Body Location L ITB Mobilization Type Strumming,Sustained Pressure Intensity/Depth Moderate Body Position Sidelying Hip Flexors Body Location L Hip Flexor Mobilization Type Strumming,Sustained Pressure Intensity/Depth Deep Body Position Hooklying Joint Mobilizations L hip mob Comments inferiolateral w/ piriformis stretch positioning manual and self performance. see HO PT-OP-T Assessment and Plan Start: 01/17/23 16:44 Freq: Status: Active Protocol: Document 02/21/23 14:04 DCW (Rec: 02/21/23 14:46 DCW [id number]) Physical Therapy Assessment Impairments Impairments Functional Activities, Functional Mobility,Pain,Soft Tissue Mobility,Strength,Tone Goals Two Impairment Hip pain prevent's pt from fully participating in dance classes Alf Goal (LTG) Pt to report participating in 4 straight dance classes without any increased hip pain or need to stop early due to hip stiffness/discomfort LTG Duration 03/19/23 One Impairment Pt does not have an appropriate home exercise program Short Term Goal (STG) Pt to be independent and compliant with an appropriate HEP STG Duration 02/17/23 Assessment Summary Assessment Since pt responded so well to manual treatment last visit, spent most of today's treatment session on further manual, pt noting good benefit . Physical Therapy Plan Frequency and Duration Frequency of Treatment 1x/Week Plan of Care Start Date 01/17/23 Plan of Care End Date 03/19/23 Therapeutic Interventions Therapeutic Interventions Home Exercise Program,Joint Mobilizations,Manual Therapy, Patient/Caregiver Education, Self-Care/Home Management,Soft Tissue Mobilization, Therapeutic Activities, Therapeutic Exercises Next Visit Focus/Plan Next Note Type Treatment Note Next Visit Plan Assess response hip mob and self home. POC: Hip flexor and ITB stretching, hip strengthening
--- NOTE | 2023-02-23 11:33 | PT.OTN ---
Current Diagnoses Polyosteoarthritis, unspecified (02/23/23) Pain in left hip (02/23/23) Stiffness of left hip, not elsewhere classified (02/23/23) Physical Therapy Treatment Note PT-OP-A Visit Information Start: 01/17/23 16:44 Freq: Status: Active Protocol: Document 02/23/23 10:48 SP (Rec: 02/23/23 11:40 SP [id number]) Out-Patient Physical Therapy Visit Information Visit Information Visit Type Treatment Note Visit Start Time 10:48 Visit Stop Time 11:33 Total Visit Minutes 45 Visit Number 7 Number of FAIRGROUND OPERATOR Visits 1 Evaluation Information Evaluation Date 01/17/23 PT-OP-B Current Condition Start: 01/17/23 16:44 Freq: Status: Active Protocol: Document 01/17/23 10:25 DCW (Rec: 01/17/23 17:15 DCW [id number]) Current Condition History of Current Condition Onset Date 2-3 month history Current Complaints left hip pain and stiffness History of Current Condition Pt is a 62 year old female presenting to skilled PT with a 2-3 month history of left hip pain and stiffness. Pt is very well known to this clinic , and has been treated for multiple different injuries and painful body parts, most recently following a lumbar surgery, and then again shortly afterward due to worsening neck pain, approximately 1.5 years ago. 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 Has had to exit early from her dance class a few times, and has even started occasionally using a cane if her hip is really bad. Notes she had a massage a few days ago, and that seemed to really help. Additionally, pt has done some stretching, which is also helping to improve her discomfort. Prior Treatments and Tests Hip X-ray: IMPRESSION: Bilateral hip osteoarthritis. No acute fracture. No osseous lesion. If symptoms and/or clinical suspicion for pathology persist, further assessment with repeat, or advanced imaging (e.g., CT, MRI, or bone scan) may be helpful for further assessment. per Felton Mehta M.D. on 2022 Treatment Goals Patient/Caregiver Goals Return to dancing with relatively minimal pain or stiffness PT-OP-C Subjective Start: 01/17/23 16:44 Freq: Status: Active Protocol: Document 02/23/23 10:48 SP (Rec: 02/23/23 11:40 SP [id number]) OP-PT Subjective Patient Comments Patient Comments Pt reported manual helping alot and MF glide with cupping found helpful might be able to do home if get. PT-OP-F Manual Assessment Start: 01/17/23 16:44 Freq: Status: Active Protocol: Document 01/17/23 10:25 DCW (Rec: 01/17/23 17:15 DCW [id number]) Manual Assessments Soft Tissue Assessment Soft Tissue Mobility Assessment Hypertonia in hip flexors, glute med/TFL, and piriformis PT-OP-L Special Tests Start: 01/17/23 16:44 Freq: Status: Active Protocol: Document 01/17/23 10:25 DCW (Rec: 01/17/23 17:15 DCW [id number]) Special Tests Hip Special Tests Qiana's Test Test Results Positive Left Bryce Test Results Positive Left Lateral SI Compression Test Results Negative Piriformis Test Results Negative RAMONA Test Results Left anterior ipsilateral hip pain PT-OP-M Strength Start: 01/17/23 16:44 Freq: Status: Active Protocol: Document 01/17/23 10:25 DCW (Rec: 01/17/23 17:15 DCW [id number]) Hip Strength Hip Manual Muscle Testing Right Flexion (L2) 4+ Good+ Abduction 4+ Good+ Adduction 4+ Good+ External Rotation 4+ Good+ Internal Rotation 4+ Good+ Left Flexion (L2) 4 Good Abduction 4 Good Adduction 4 Good External Rotation 4 Good Internal Rotation 4- Good- PT-OP-Q Treatments Start: 01/17/23 16:44 Freq: Status: Active Protocol: Document 02/23/23 10:48 SP (Rec: 02/23/23 11:40 SP [id number]) Therapeutic Exercises Sitting Exercises squats Resistance AROM Equipment Used dowel CS/TS/pelvis, PPT- eccentric to chair Reps/Minutes x10 Comments cued TA PPT improved LS alignment Other Exercises 1/2 kneel hip flexor stretch Other Exercise Name reviewed past performed Side bilateral Equipment Used chair contact Reps/Minutes 30 Comments cued PPT, neutral child's pose Other Exercise Name w/SB Reps/Minutes 30 x2 Comments good QL stretc BirdDog Reps/Minutes 30 x2 Comments cued heels toward floor, pelvis lift ceiling- good post chain stretch Resisted Ambulation Other Exercise Name Resisted side-stepping, fwd/ bkwd Resistance Red (mid sarkar)> Green loop ( ankles) Reps/Minutes 20 ft x1 lap each resistance Comments cued soft knee, neutral pelvis Manual Therapy Treatment Soft Tissue Mobilization back Body Location B paraspinal, ES, scar mob Mobilization Type Instrument Assisted,Myofascial Release Body Position Prone Comments manual, cupping ITB Body Location L ITB Mobilization Type Strumming,Sustained Pressure Intensity/Depth Moderate Body Position Sidelying PT-OP-T Assessment and Plan Start: 01/17/23 16:44 Freq: Status: Active Protocol: Document 02/23/23 10:48 SP (Rec: 02/23/23 11:40 SP [id number]) Physical Therapy Assessment Goals Two Impairment Hip pain prevent's pt from fully participating in dance classes Manager Electronic Goal (LTG) Pt to report participating in 4 straight dance classes without any increased hip pain or need to stop early due to hip stiffness/discomfort LTG Duration 03/19/23 One Impairment Pt does not have an appropriate home exercise program Short Term Goal (STG) Pt to be independent and compliant with an appropriate HEP STG Duration 02/17/23 Assessment Summary Assessment Pt good pelvic and hip increased mobility and core/ hip abd fac with manual, stretching and ther ex this tx . Wants be able to walk further distance with strength to allow trip to [place] in May. Physical Therapy Plan Frequency and Duration Frequency of Treatment 1x/Week Plan of Care Start Date 01/17/23 Plan of Care End Date 03/19/23 Therapeutic Interventions Therapeutic Interventions Home Exercise Program,Joint Mobilizations,Manual Therapy, Patient/Caregiver Education, Self-Care/Home Management,Soft Tissue Mobilization, Therapeutic Activities, Therapeutic Exercises Next Visit Focus/Plan Next Note Type Treatment Note Next Visit Plan Assess response hip mob and self home. POC: Hip flexor and ITB stretching, hip strengthening
--- NOTE | 2023-02-26 14:20 | PT-OP ANOTE ---
Pt called and LM. Reports not feeling well with possible stomach bug. Unable to come in for appt.
--- NOTE | 2023-03-02 13:00 | PT.OTN ---
Current Diagnoses Polyosteoarthritis, unspecified (03/02/23) Pain in left hip (03/02/23) Stiffness of left hip, not elsewhere classified (03/02/23) Physical Therapy Treatment Note PT-OP-A Visit Information Start: 01/17/23 16:44 Freq: Status: Active Protocol: Document 03/02/23 12:16 DCW (Rec: 03/02/23 12:59 DCW [id number]) Out-Patient Physical Therapy Visit Information Visit Information Visit Type Treatment Note Visit Start Time 12:16 Visit Stop Time 13:00 Total Visit Minutes 44 Visit Number 8 Number of GEROPSYCHOLOGIST Visits 0 Evaluation Information Evaluation Date 01/17/23 PT-OP-B Current Condition Start: 01/17/23 16:44 Freq: Status: Active Protocol: Document 01/17/23 10:25 DCW (Rec: 01/17/23 17:15 DCW [id number]) Current Condition History of Current Condition Onset Date 2-3 month history Current Complaints left hip pain and stiffness History of Current Condition Pt is a 62 year old female presenting to skilled PT with a 2-3 month history of left hip pain and stiffness. Pt is very well known to this clinic , and has been treated for multiple different injuries and painful body parts, most recently following a lumbar surgery, and then again shortly afterward due to worsening neck pain, approximately 1.5 years ago. 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 Has had to exit early from her dance class a few times, and has even started occasionally using a cane if her hip is really bad. Notes she had a massage a few days ago, and that seemed to really help. Additionally, pt has done some stretching, which is also helping to improve her discomfort. Prior Treatments and Tests Hip X-ray: IMPRESSION: Bilateral hip osteoarthritis. No acute fracture. No osseous lesion. If symptoms and/or clinical suspicion for pathology persist, further assessment with repeat, or advanced imaging (e.g., CT, MRI, or bone scan) may be helpful for further assessment. per Felton Mehta M.D. on 2022 Treatment Goals Patient/Caregiver Goals Return to dancing with relatively minimal pain or stiffness PT-OP-C Subjective Start: 01/17/23 16:44 Freq: Status: Active Protocol: Document 03/02/23 12:16 DCW (Rec: 03/02/23 13:00 DCW [id number]) OP-PT Subjective Patient Comments Patient Comments Pt notes she has been feeling pretty good overall. PT-OP-F Manual Assessment Start: 01/17/23 16:44 Freq: Status: Active Protocol: Document 01/17/23 10:25 DCW (Rec: 01/17/23 17:15 DCW [id number]) Manual Assessments Soft Tissue Assessment Soft Tissue Mobility Assessment Hypertonia in hip flexors, glute med/TFL, and piriformis PT-OP-L Special Tests Start: 01/17/23 16:44 Freq: Status: Active Protocol: Document 01/17/23 10:25 DCW (Rec: 01/17/23 17:15 DCW [id number]) Special Tests Hip Special Tests Qiana's Test Test Results Positive Left Bryce Test Results Positive Left Lateral SI Compression Test Results Negative Piriformis Test Results Negative RAMONA Test Results Left anterior ipsilateral hip pain PT-OP-M Strength Start: 01/17/23 16:44 Freq: Status: Active Protocol: Document 01/17/23 10:25 DCW (Rec: 01/17/23 17:15 DCW [id number]) Hip Strength Hip Manual Muscle Testing Right Flexion (L2) 4+ Good+ Abduction 4+ Good+ Adduction 4+ Good+ External Rotation 4+ Good+ Internal Rotation 4+ Good+ Left Flexion (L2) 4 Good Abduction 4 Good Adduction 4 Good External Rotation 4 Good Internal Rotation 4- Good- PT-OP-Q Treatments Start: 01/17/23 16:44 Freq: Status: Active Protocol: Document 03/02/23 12:16 DCW (Rec: 03/02/23 12:59 DCW [id number]) Therapeutic Exercises Standing Exercises BOSU Lunge Standing Exercise Name BOSU Lunge (fwd, lateral) Side bilateral Reps/Minutes x10 Other Exercises Resisted Ambulation Other Exercise Name Resisted side-stepping, fwd/ bkwd Resistance Green loop (ankles) Reps/Minutes 20 ft x4 Comments cued soft knee, neutral pelvis Manual Therapy Treatment Soft Tissue Mobilization back Body Location B paraspinal, ES, scar mob Mobilization Type Myofascial Release,Strumming, Sustained Pressure Body Position Prone Comments manual ITB Body Location L ITB Mobilization Type Strumming,Sustained Pressure Intensity/Depth Moderate Body Position Sidelying Hip Flexors Body Location L Hip Flexor Mobilization Type Strumming,Sustained Pressure Intensity/Depth Deep Body Position Hooklying Joint Mobilizations L hip mob Comments inferiolateral w/ piriformis stretch positioning manual and self performance. see HO PT-OP-T Assessment and Plan Start: 01/17/23 16:44 Freq: Status: Active Protocol: Document 03/02/23 12:16 DCW (Rec: 03/02/23 12:59 DCW [id number]) Physical Therapy Assessment Impairments Impairments Functional Activities, Functional Mobility,Pain,Soft Tissue Mobility,Strength,Tone Goals Two Impairment Hip pain prevent's pt from fully participating in dance classes [facility] Goal (LTG) Pt to report participating in 4 straight dance classes without any increased hip pain or need to stop early due to hip stiffness/discomfort LTG Duration 03/19/23 One Impairment Pt does not have an appropriate home exercise program Short Term Goal (STG) Pt to be independent and compliant with an appropriate HEP STG Duration 02/17/23 Assessment Summary Assessment Pt feeling like she is making pretty good progress, agreeable to decrease frequency in hopes to return to independent HEP without increasing symptoms. Physical Therapy Plan Frequency and Duration Frequency of Treatment 1x/Week Plan of Care Start Date 01/17/23 Plan of Care End Date 03/19/23 Therapeutic Interventions Therapeutic Interventions Home Exercise Program,Joint Mobilizations,Manual Therapy, Patient/Caregiver Education, Self-Care/Home Management,Soft Tissue Mobilization, Therapeutic Activities, Therapeutic Exercises Next Visit Focus/Plan Next Note Type Treatment Note Next Visit Plan Assess response hip mob and self home. POC: Hip flexor and ITB stretching, hip strengthening
--- NOTE | 2023-03-09 15:15 | PT.OTN ---
Current Diagnoses Polyosteoarthritis, unspecified (03/09/23) Pain in left hip (03/09/23) Stiffness of left hip, not elsewhere classified (03/09/23) Physical Therapy Treatment Note PT-OP-A Visit Information Start: 01/17/23 16:44 Freq: Status: Active Protocol: Document 03/09/23 14:26 SP (Rec: 03/09/23 15:31 SP [id number]) Out-Patient Physical Therapy Visit Information Visit Information Visit Type Treatment Note Visit Start Time 14:30 Visit Stop Time 15:15 Total Visit Minutes 45 Visit Number 9 Number of RIVER EXPEDITION GUIDE Visits 1 Evaluation Information Evaluation Date 01/17/23 PT-OP-B Current Condition Start: 01/17/23 16:44 Freq: Status: Active Protocol: Document 01/17/23 10:25 DCW (Rec: 01/17/23 17:15 DCW [id number]) Current Condition History of Current Condition Onset Date 2-3 month history Current Complaints left hip pain and stiffness History of Current Condition Pt is a 62 year old female presenting to skilled PT with a 2-3 month history of left hip pain and stiffness. Pt is very well known to this clinic , and has been treated for multiple different injuries and painful body parts, most recently following a lumbar surgery, and then again shortly afterward due to worsening neck pain, approximately 1.5 years ago. 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 Has had to exit early from her dance class a few times, and has even started occasionally using a cane if her hip is really bad. Notes she had a massage a few days ago, and that seemed to really help. Additionally, pt has done some stretching, which is also helping to improve her discomfort. Prior Treatments and Tests Hip X-ray: IMPRESSION: Bilateral hip osteoarthritis. No acute fracture. No osseous lesion. If symptoms and/or clinical suspicion for pathology persist, further assessment with repeat, or advanced imaging (e.g., CT, MRI, or bone scan) may be helpful for further assessment. per Felton Mehta M.D. on 2022 Treatment Goals Patient/Caregiver Goals Return to dancing with relatively minimal pain or stiffness PT-OP-C Subjective Start: 01/17/23 16:44 Freq: Status: Active Protocol: Document 03/09/23 14:26 SP (Rec: 03/09/23 15:31 SP [id number]) OP-PT Subjective Patient Comments Patient Comments Pt reports so suprised how much the cupping to her low back helped movement, so purchased ones for home but hasn't used yet. She stated she didn't have any hip pain dancing this past weekend but did sit little more due to attended with her this time. SHe reports neighbor has a BOSU and able to borrow to continue on own as well. PT-OP-F Manual Assessment Start: 01/17/23 16:44 Freq: Status: Active Protocol: Document 01/17/23 10:25 DCW (Rec: 01/17/23 17:15 DCW [id number]) Manual Assessments Soft Tissue Assessment Soft Tissue Mobility Assessment Hypertonia in hip flexors, glute med/TFL, and piriformis PT-OP-L Special Tests Start: 01/17/23 16:44 Freq: Status: Active Protocol: Document 01/17/23 10:25 DCW (Rec: 01/17/23 17:15 DCW [id number]) Special Tests Hip Special Tests Qiana's Test Test Results Positive Left Bryce Test Results Positive Left Lateral SI Compression Test Results Negative Piriformis Test Results Negative RAMONA Test Results Left anterior ipsilateral hip pain PT-OP-M Strength Start: 01/17/23 16:44 Freq: Status: Active Protocol: Document 01/17/23 10:25 DCW (Rec: 01/17/23 17:15 DCW [id number]) Hip Strength Hip Manual Muscle Testing Right Flexion (L2) 4+ Good+ Abduction 4+ Good+ Adduction 4+ Good+ External Rotation 4+ Good+ Internal Rotation 4+ Good+ Left Flexion (L2) 4 Good Abduction 4 Good Adduction 4 Good External Rotation 4 Good Internal Rotation 4- Good- PT-OP-Q Treatments Start: 01/17/23 16:44 Freq: Status: Active Protocol: Document 03/09/23 14:26 SP (Rec: 03/09/23 15:31 SP [id number]) Therapeutic Exercises Prone Exercises prone Tball hip ext/abd lifts Prone Exercise Name added to HEP Side bilateral Resistance TB #2 loop around ankles Equipment Used 65cm tball Reps/Minutes 10 reps up/down, 5 pulse press Comments occasional cue for TA, hip ext and ABD lift- good fac Standing Exercises BOSU Lunge Standing Exercise Name BOSU Lunge (fwd, lateral), mini squat dome and flat Side bilateral Equipment Used near rail PRN contact Reps/Minutes x10 each Comments ed foot alignment top ball, knee alignment, COG over [place] SLS Manual Therapy Treatment Soft Tissue Mobilization back Body Location B paraspinal, ES, scar mob Mobilization Type Myofascial Release,Strumming, Sustained Pressure Body Position Prone Comments manual and cupping ITB Body Location L ITB Mobilization Type Instrument Assisted,Strumming, Sustained Pressure Intensity/Depth Moderate Body Position Sidelying Comments manual and cupping Hip Flexors Body Location L TFL Mobilization Type Instrument Assisted,Strumming Intensity/Depth Deep Body Position Hooklying Comments manual and cupping PT-OP-T Assessment and Plan Start: 01/17/23 16:44 Freq: Status: Active Protocol: Document 03/09/23 14:26 SP (Rec: 03/09/23 15:31 SP [id number]) Physical Therapy Assessment Goals Two Impairment Hip pain prevent's pt from fully participating in dance classes [facility] Goal (LTG) Pt to report participating in 4 straight dance classes without any increased hip pain or need to stop early due to hip stiffness/discomfort 03/09/23: GOAL MET: Pt reports no hip pain and little muscle tiring work out into evening and next day. LTG Duration 03/19/23 GOAL MET 03/09/23 One Impairment Pt does not have an appropriate home exercise program Short Term Goal (STG) Pt to be independent and compliant with an appropriate HEP 03/09/23: reviewed: crab walk, Tball LTR/bridge/ bridge w/ curl, precore elliptical with increased stamina, added prone tball hip ext/abd against TB . She hasn't tried self mob use w/ strap yet to see if helpful at home. STG Duration 02/17/23 progression 03/09/23 Assessment Summary Assessment Pt MET GOAL #2, painfree L hip dancing last weekend. Sht gives good feedback response to manual and cupping over back and initiated L glut and ITB. I can't believe how much of a difference in flexibility feel after cupping and leg today. Min cues for core and LE alignment during BOSU step ups, added mini squats and prone over tball for active hip flexor elongation while provide glut/hip abd/core facilitation. Pt states this is a good glut exercise and like still feels little stretch on front leg tend to be tight. Good stability noted occasional contact rail with uneven squat on BOSU this tx. Physical Therapy Plan Frequency and Duration Frequency of Treatment 1x/Week Plan of Care Start Date 01/17/23 Plan of Care End Date 03/19/23 Therapeutic Interventions Therapeutic Interventions Home Exercise Program,Joint Mobilizations,Manual Therapy, Patient/Caregiver Education, Self-Care/Home Management,Soft Tissue Mobilization, Therapeutic Activities, Therapeutic Exercises Next Visit Focus/Plan Next Note Type Treatment Note Next Visit Plan Check prone Tball resisted hip ext/abd added and BOSU squat last tx. POC: Hip flexor and ITB stretching, hip strengthening
--- NOTE | 2023-03-22 14:42 | PT.OTN ---
Current Diagnoses Polyosteoarthritis, unspecified (03/22/23) Pain in left hip (03/22/23) Stiffness of left hip, not elsewhere classified (03/22/23) Physical Therapy Treatment Note PT-OP-A Visit Information Start: 01/17/23 16:44 Freq: Status: Active Protocol: Document 03/22/23 14:07 DCW (Rec: 03/22/23 14:42 DCW [id number]) Out-Patient Physical Therapy Visit Information Visit Information Visit Type Progress Note Visit Start Time 14:07 Visit Stop Time 14:45 Total Visit Minutes 38 Visit Number 10 Number of FILAMENT TESTER Visits 0 Evaluation Information Evaluation Date 01/17/23 PT-OP-B Current Condition Start: 01/17/23 16:44 Freq: Status: Active Protocol: Document 01/17/23 10:25 DCW (Rec: 01/17/23 17:15 DCW [id number]) Current Condition History of Current Condition Onset Date 2-3 month history Current Complaints left hip pain and stiffness History of Current Condition Pt is a 62 year old female presenting to skilled PT with a 2-3 month history of left hip pain and stiffness. Pt is very well known to this clinic , and has been treated for multiple different injuries and painful body parts, most recently following a lumbar surgery, and then again shortly afterward due to worsening neck pain, approximately 1.5 years ago. 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 Has had to exit early from her dance class a few times, and has even started occasionally using a cane if her hip is really bad. Notes she had a massage a few days ago, and that seemed to really help. Additionally, pt has done some stretching, which is also helping to improve her discomfort. Prior Treatments and Tests Hip X-ray: IMPRESSION: Bilateral hip osteoarthritis. No acute fracture. No osseous lesion. If symptoms and/or clinical suspicion for pathology persist, further assessment with repeat, or advanced imaging (e.g., CT, MRI, or bone scan) may be helpful for further assessment. per Felton Mehta M.D. on 2022 Treatment Goals Patient/Caregiver Goals Return to dancing with relatively minimal pain or stiffness PT-OP-C Subjective Start: 01/17/23 16:44 Freq: Status: Active Protocol: Document 03/22/23 14:07 DCW (Rec: 03/22/23 14:42 DCW [id number]) OP-PT Subjective Patient Comments Patient Comments Pt admits she has been doing too much at work that she has neglected a lot of her exercises, has been more sore recently through her hip and low back, and it is disturbing her sleep. PT-OP-F Manual Assessment Start: 01/17/23 16:44 Freq: Status: Active Protocol: Document 03/22/23 14:07 DCW (Rec: 03/22/23 14:17 DCW [id number]) Manual Assessments Soft Tissue Assessment Soft Tissue Mobility Assessment Mild-moderate hypertonia in hip flexors and, glute med/TFL , L>R PT-OP-L Special Tests Start: 01/17/23 16:44 Freq: Status: Active Protocol: Document 03/22/23 14:07 DCW (Rec: 03/22/23 14:17 DCW [id number]) Special Tests Hip Special Tests Qiana's Test Test Results Positive Left Bryce Test Results Positive Left Lateral SI Compression Test Results Negative Piriformis Test Results Negative RAMONA Test Results Left anterior ipsilateral hip pain PT-OP-M Strength Start: 01/17/23 16:44 Freq: Status: Active Protocol: Document 03/22/23 14:07 DCW (Rec: 03/22/23 14:17 DCW [id number]) Hip Strength Hip Manual Muscle Testing Right Flexion (L2) 4+ Good+ Abduction 4+ Good+ Adduction 4+ Good+ External Rotation 4+ Good+ Internal Rotation 4+ Good+ Left Flexion (L2) 4 Good Abduction 4 Good Adduction 4 Good External Rotation 4 Good Internal Rotation 4- Good- PT-OP-Q Treatments Start: 01/17/23 16:44 Freq: Status: Active Protocol: Document 03/22/23 14:07 DCW (Rec: 03/22/23 14:42 DCW [id number]) Therapeutic Exercises Supine Exercises ITB Stretch Supine Exercise Name ITB Stretch Side bilateral Hamstring Stretch Supine Exercise Name HS Stretch Side bilateral Bryce stretch Supine Exercise Name Bryce Stretch Side bilateral Manual Therapy Treatment Soft Tissue Mobilization back Body Location B paraspinal, ES, scar mob Mobilization Type Myofascial Release,Strumming, Sustained Pressure Body Position Prone Comments manual ITB Body Location L ITB Mobilization Type Strumming,Sustained Pressure Intensity/Depth Moderate Body Position Sidelying Hip Flexors Body Location L Hip Flexor Mobilization Type Strumming,Sustained Pressure Intensity/Depth Deep Body Position Hooklying Joint Mobilizations L hip mob Comments inferiolateral w/ piriformis stretch positioning manual and self performance. see HO PT-OP-T Assessment and Plan Start: 01/17/23 16:44 Freq: Status: Active Protocol: Document 03/22/23 14:07 DCW (Rec: 03/22/23 14:42 DCW [id number]) Physical Therapy Assessment Impairments Impairments Functional Activities, Functional Mobility,Pain,Soft Tissue Mobility,Strength,Tone Goals Two Impairment Hip pain prevent's pt from fully participating in dance classes Business Intelligence Etl Developer Goal (LTG) Pt to report participating in 4 straight dance classes without any increased hip pain or need to stop early due to hip stiffness/discomfort LTG Duration 04/18/23 One Impairment Pt does not have an appropriate home exercise program Short Term Goal (STG) Pt to be independent and compliant with an appropriate HEP STG Duration 04/18/23 Assessment Summary Assessment Pt admits to poor compliance recently with HEP, noticeable decrease in tone management and pain today compared to prior weeks. Will likely benefit from 3-4 more visits over the next month to improve HEP compliance and advance as tolerated, with goal of discharge to [facility]. Physical Therapy Plan Frequency and Duration Frequency of Treatment 1x/Week Plan of Care Start Date 03/22/23 Plan of Care End Date 04/22/23 Therapeutic Interventions Therapeutic Interventions Home Exercise Program,Joint Mobilizations,Manual Therapy, Patient/Caregiver Education, Self-Care/Home Management,Soft Tissue Mobilization, Therapeutic Activities, Therapeutic Exercises Next Visit Focus/Plan Next Note Type Treatment Note Next Visit Plan Check prone Tball resisted hip ext/abd added and BOSU squat last tx. POC: Hip flexor and ITB stretching, hip strengthening
--- NOTE | 2023-03-22 14:43 | PT.OPPOC ---
Physical, Occupational & Speech Therapy At [facility] Current Diagnoses Polyosteoarthritis, unspecified (03/22/23) Pain in left hip (03/22/23) Stiffness of left hip, not elsewhere classified (03/22/23) Visit Care Team Role Provider Type Gilberto Iyer MD Attending Provider Physician Family Provider Primary Care Provider Referring Provider Specialty: [facility] Practice Address: [facility] [place], [place], [facility] Email: [email or web address] Plan Of Care PT-OP-T Assessment and Plan Start: 01/17/23 16:44 Freq: Status: Active Protocol: Document 03/22/23 14:07 DCW (Rec: 03/22/23 14:42 DCW [id number]) Physical Therapy Assessment Impairments Impairments Functional Activities, Functional Mobility,Pain,Soft Tissue Mobility,Strength,Tone Goals Two Impairment Hip pain prevent's pt from fully participating in dance classes Senior Living Goal (LTG) Pt to report participating in 4 straight dance classes without any increased hip pain or need to stop early due to hip stiffness/discomfort LTG Duration 04/18/23 One Impairment Pt does not have an appropriate home exercise program Short Term Goal (STG) Pt to be independent and compliant with an appropriate HEP STG Duration 04/18/23 Assessment Summary Assessment Pt admits to poor compliance recently with HEP, noticeable decrease in tone management and pain today compared to prior weeks. Will likely benefit from 3-4 more visits over the next month to improve HEP compliance and advance as tolerated, with goal of discharge to [facility]. Physical Therapy Plan Frequency and Duration Frequency of Treatment 1x/Week Plan of Care Start Date 03/22/23 Plan of Care End Date 04/22/23 Therapeutic Interventions Therapeutic Interventions Home Exercise Program,Joint Mobilizations,Manual Therapy, Patient/Caregiver Education, Self-Care/Home Management,Soft Tissue Mobilization, Therapeutic Activities, Therapeutic Exercises Next Visit Focus/Plan Next Note Type Treatment Note Next Visit Plan Check prone Tball resisted hip ext/abd added and BOSU squat last tx. POC: Hip flexor and ITB stretching, hip strengthening Plan of Care Dates Plan of Care Start Date 03/22/23 Plan of Care End Date 04/22/23 Electronically Signed by: Rudi Doyle, PT 03/22/23 1441 If you are in agreement with this Plan of Care, please return a signed and dated copy. I have reviewed this Plan of Care and certify that the skilled therapy services above are required to meet the patient?s needs. Physician Signature Date Printed Name and Credentials Clinical Instructor Signature Printed Name and Credentials
--- NOTE | 2023-03-28 13:31 | PT.OTN ---
Current Diagnoses Polyosteoarthritis, unspecified (03/28/23) Pain in left hip (03/28/23) Stiffness of left hip, not elsewhere classified (03/28/23) Physical Therapy Treatment Note PT-OP-A Visit Information Start: 01/17/23 16:44 Freq: Status: Active Protocol: Document 03/28/23 12:50 DCW (Rec: 03/28/23 13:31 DCW [id number]) Out-Patient Physical Therapy Visit Information Visit Information Visit Type Treatment Note Visit Start Time 12:50 Visit Stop Time 13:30 Total Visit Minutes 40 Visit Number 11 Number of FARM OPERATIONS MANAGER Visits 0 Evaluation Information Evaluation Date 01/17/23 PT-OP-B Current Condition Start: 01/17/23 16:44 Freq: Status: Active Protocol: Document 01/17/23 10:25 DCW (Rec: 01/17/23 17:15 DCW [id number]) Current Condition History of Current Condition Onset Date 2-3 month history Current Complaints left hip pain and stiffness History of Current Condition Pt is a 62 year old female presenting to skilled PT with a 2-3 month history of left hip pain and stiffness. Pt is very well known to this clinic , and has been treated for multiple different injuries and painful body parts, most recently following a lumbar surgery, and then again shortly afterward due to worsening neck pain, approximately 1.5 years ago. 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 Has had to exit early from her dance class a few times, and has even started occasionally using a cane if her hip is really bad. Notes she had a massage a few days ago, and that seemed to really help. Additionally, pt has done some stretching, which is also helping to improve her discomfort. Prior Treatments and Tests Hip X-ray: IMPRESSION: Bilateral hip osteoarthritis. No acute fracture. No osseous lesion. If symptoms and/or clinical suspicion for pathology persist, further assessment with repeat, or advanced imaging (e.g., CT, MRI, or bone scan) may be helpful for further assessment. per Felton Mehta M.D. on 2022 Treatment Goals Patient/Caregiver Goals Return to dancing with relatively minimal pain or stiffness PT-OP-C Subjective Start: 01/17/23 16:44 Freq: Status: Active Protocol: Document 03/28/23 12:50 DCW (Rec: 03/28/23 13:31 DCW [id number]) OP-PT Subjective Patient Comments Patient Comments Better than last week. PT-OP-F Manual Assessment Start: 01/17/23 16:44 Freq: Status: Active Protocol: Document 03/22/23 14:07 DCW (Rec: 03/22/23 14:17 DCW [id number]) Manual Assessments Soft Tissue Assessment Soft Tissue Mobility Assessment Mild-moderate hypertonia in hip flexors and, glute med/TFL , L>R PT-OP-L Special Tests Start: 01/17/23 16:44 Freq: Status: Active Protocol: Document 03/22/23 14:07 DCW (Rec: 03/22/23 14:17 DCW [id number]) Special Tests Hip Special Tests Qiana's Test Test Results Positive Left Bryce Test Results Positive Left Lateral SI Compression Test Results Negative Piriformis Test Results Negative RAMONA Test Results Left anterior ipsilateral hip pain PT-OP-M Strength Start: 01/17/23 16:44 Freq: Status: Active Protocol: Document 03/22/23 14:07 DCW (Rec: 03/22/23 14:17 DCW [id number]) Hip Strength Hip Manual Muscle Testing Right Flexion (L2) 4+ Good+ Abduction 4+ Good+ Adduction 4+ Good+ External Rotation 4+ Good+ Internal Rotation 4+ Good+ Left Flexion (L2) 4 Good Abduction 4 Good Adduction 4 Good External Rotation 4 Good Internal Rotation 4- Good- PT-OP-Q Treatments Start: 01/17/23 16:44 Freq: Status: Active Protocol: Document 03/28/23 12:50 DCW (Rec: 03/28/23 13:31 DCW [id number]) Manual Therapy Treatment Soft Tissue Mobilization back Body Location B paraspinal, ES, scar mob Mobilization Type Myofascial Release,Strumming, Sustained Pressure Body Position Prone Comments manual ITB Body Location L ITB Mobilization Type Strumming,Sustained Pressure Intensity/Depth Moderate Body Position Sidelying Hip Flexors Body Location L Hip Flexor Mobilization Type Strumming,Sustained Pressure Intensity/Depth Deep Body Position Hooklying Joint Mobilizations L hip mob Comments inferiolateral w/ piriformis stretch positioning manual and self performance. see HO PT-OP-T Assessment and Plan Start: 01/17/23 16:44 Freq: Status: Active Protocol: Document 03/28/23 12:50 DCW (Rec: 03/28/23 13:31 DCW [id number]) Physical Therapy Assessment Impairments Impairments Functional Activities, Functional Mobility,Pain,Soft Tissue Mobility,Strength,Tone Goals Two Impairment Hip pain prevent's pt from fully participating in dance classes Bridge Mechanic Goal (LTG) Pt to report participating in 4 straight dance classes without any increased hip pain or need to stop early due to hip stiffness/discomfort LTG Duration 04/18/23 One Impairment Pt does not have an appropriate home exercise program Short Term Goal (STG) Pt to be independent and compliant with an appropriate HEP STG Duration 04/18/23 Assessment Summary Assessment Pt doing better with HEP now, felt last week was a wake up call. Still having some increased tenderness in her T/ L paraspinals, tolerated STM well today. Physical Therapy Plan Frequency and Duration Frequency of Treatment 1x/Week Plan of Care Start Date 03/22/23 Plan of Care End Date 04/22/23 Therapeutic Interventions Therapeutic Interventions Home Exercise Program,Joint Mobilizations,Manual Therapy, Patient/Caregiver Education, Self-Care/Home Management,Soft Tissue Mobilization, Therapeutic Activities, Therapeutic Exercises Next Visit Focus/Plan Next Note Type Treatment Note Next Visit Plan Check prone Tball resisted hip ext/abd added and BOSU squat last tx. POC: Hip flexor and ITB stretching, hip strengthening
--- NOTE | 2023-04-11 09:45 | PT.OTN ---
Current Diagnoses Polyosteoarthritis, unspecified (04/11/23) Pain in left hip (04/11/23) Stiffness of left hip, not elsewhere classified (04/11/23) Physical Therapy Treatment Note PT-OP-A Visit Information Start: 01/17/23 16:44 Freq: Status: Active Protocol: Document 04/11/23 09:06 SP (Rec: 04/11/23 10:32 SP [id number]) Out-Patient Physical Therapy Visit Information Visit Information Visit Type Treatment Note Visit Note Pt 6 min late for appt. Visit Start Time 09:06 Visit Stop Time 09:45 Total Visit Minutes 39 Visit Number 12 Number of [employer] Visits 1 Evaluation Information Evaluation Date 01/17/23 Precautions Precautions 04/11/23: CAUTION: pt reports has had skin irritation reaction to paper tape after a surgery in past and a particular K tape X on back to assist spinal alignment with mobility. PT-OP-B Current Condition Start: 01/17/23 16:44 Freq: Status: Active Protocol: Document 01/17/23 10:25 DCW (Rec: 01/17/23 17:15 DCW [id number]) Current Condition History of Current Condition Onset Date 2-3 month history Current Complaints left hip pain and stiffness History of Current Condition Pt is a 62 year old female presenting to skilled PT with a 2-3 month history of left hip pain and stiffness. Pt is very well known to this clinic , and has been treated for multiple different injuries and painful body parts, most recently following a lumbar surgery, and then again shortly afterward due to worsening neck pain, approximately 1.5 years ago. 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 Has had to exit early from her dance class a few times, and has even started occasionally using a cane if her hip is really bad. Notes she had a massage a few days ago, and that seemed to really help. Additionally, pt has done some stretching, which is also helping to improve her discomfort. Prior Treatments and Tests Hip X-ray: IMPRESSION: Bilateral hip osteoarthritis. No acute fracture. No osseous lesion. If symptoms and/or clinical suspicion for pathology persist, further assessment with repeat, or advanced imaging (e.g., CT, MRI, or bone scan) may be helpful for further assessment. per Felton Mehta M.D. on 2022 Treatment Goals Patient/Caregiver Goals Return to dancing with relatively minimal pain or stiffness PT-OP-C Subjective Start: 01/17/23 16:44 Freq: Status: Active Protocol: Document 04/11/23 09:06 SP (Rec: 04/11/23 10:32 SP [id number]) OP-PT Subjective Patient Comments Patient Comments Pt reports tweeked her L hip standing then walked a parade route, did need to use trek pole for support. She used hot tub this am and feels alot better but feels sore and very weak. She returns to work tomorrow am, [employer]. PT-OP-F Manual Assessment Start: 01/17/23 16:44 Freq: Status: Active Protocol: Document 03/22/23 14:07 DCW (Rec: 03/22/23 14:17 DCW [id number]) Manual Assessments Soft Tissue Assessment Soft Tissue Mobility Assessment Mild-moderate hypertonia in hip flexors and, glute med/TFL , L>R PT-OP-L Special Tests Start: 01/17/23 16:44 Freq: Status: Active Protocol: Document 03/22/23 14:07 DCW (Rec: 03/22/23 14:17 DCW [id number]) Special Tests Hip Special Tests Qiana's Test Test Results Positive Left Bryce Test Results Positive Left Lateral SI Compression Test Results Negative Piriformis Test Results Negative RAMONA Test Results Left anterior ipsilateral hip pain PT-OP-M Strength Start: 01/17/23 16:44 Freq: Status: Active Protocol: Document 03/22/23 14:07 DCW (Rec: 03/22/23 14:17 DCW [id number]) Hip Strength Hip Manual Muscle Testing Right Flexion (L2) 4+ Good+ Abduction 4+ Good+ Adduction 4+ Good+ External Rotation 4+ Good+ Internal Rotation 4+ Good+ Left Flexion (L2) 4 Good Abduction 4 Good Adduction 4 Good External Rotation 4 Good Internal Rotation 4- Good- PT-OP-Q Treatments Start: 01/17/23 16:44 Freq: Status: Active Protocol: Document 04/11/23 09:06 SP (Rec: 04/11/23 10:32 SP [id number]) Therapeutic Exercises Other Exercises pigeon pose stretch Other Exercise Name up and down for hip flexor, glut, piriformis Side left Resistance L>R Reps/Minutes 30SH x2 Comments good feedback stretch- decreased pinching anterior L hip 1/2 kneel hip flexor stretch Other Exercise Name reviewed: hip flexor, TFL Side bilateral Equipment Used chair contact Reps/Minutes 30 Comments cued PPT, neutral Manual Therapy Treatment Soft Tissue Mobilization ITB Body Location L ITB, glut med, distal piriformis Mobilization Type Strumming,Sustained Pressure Intensity/Depth Moderate Body Position Sidelying Comments manual and with FM hip abd small range, ed self application ball wall. Hip Flexors Body Location L TFL Mobilization Type Strumming,Sustained Pressure Intensity/Depth Deep Body Position Sidelying Comments manual and ed self application ball wall Joint Mobilizations L hip mob Joint demo and ed self application Direction inferior and lateral Grade II Body Position Hooklying Reps/Duration mob strap anchored under table Comments inferior glide with hip IR w/ piriformis stretch positioning manual corrections/ adjustments and direction body positioning mat floor and self performance. Taping Ktaping Body Location TLF, GLut Med, Piriformis Treatment Focus support hip abd mobility Type of Tape Kinesio Tape Skin Inspection intact normal coloring Comments 3 strips: greater trochanter to inferior ASIS, inferior mid ilium, PSIS. Pt requested trial with beige Kinesiotaping with discussed understanding of adverse reactions. Trial square piece mid lateral L femur fine throughout tx 30 min. Pt understands experiences itching/tingling/ redness to remove immediately, if ok can wear through today, then progress longer if beneficial and no adverse affects up to 2-4 days at most and know as ability to wear in water. PT-OP-T Assessment and Plan Start: 01/17/23 16:44 Freq: Status: Active Protocol: Document 04/11/23 09:06 SP (Rec: 04/11/23 10:32 SP [id number]) Physical Therapy Assessment Goals Two Impairment Hip pain prevent's pt from fully participating in dance classes Longterm Goal (LTG) Pt to report participating in 4 straight dance classes without any increased hip pain or need to stop early due to hip stiffness/discomfort LTG Duration 04/18/23 One Impairment Pt does not have an appropriate home exercise program Short Term Goal (STG) Pt to be independent and compliant with an appropriate HEP STG Duration 04/18/23 Assessment Summary Assessment Pt good feedback response with manual and hands on education corrections self L hip mob set up and performance for carryover out of town at work, with report more hip mobility post. Reviewed hip stretching post manual with reports gained ROM and less to no anterior L hip pinch/stitch feeling and L hip feeling alot better L hip leaving appt. Physical Therapy Plan Frequency and Duration Frequency of Treatment 1x/Week Plan of Care Start Date 03/22/23 Plan of Care End Date 04/22/23 Therapeutic Interventions Therapeutic Interventions Home Exercise Program,Joint Mobilizations,Manual Therapy, Patient/Caregiver Education, Self-Care/Home Management,Soft Tissue Mobilization, Therapeutic Activities, Therapeutic Exercises Next Visit Focus/Plan Next Note Type Treatment Note Next Visit Plan Check response to Ktaping L hip to support ABD stability and self manual if needed. POC: Hip flexor and ITB stretching, hip strengthening
--- NOTE | 2023-04-18 15:31 | PT.OTN ---
Current Diagnoses Polyosteoarthritis, unspecified (04/18/23) Pain in left hip (04/18/23) Stiffness of left hip, not elsewhere classified (04/18/23) Physical Therapy Treatment Note PT-OP-A Visit Information Start: 01/17/23 16:44 Freq: Status: Active Protocol: Document 04/18/23 14:50 DCW (Rec: 04/18/23 15:31 DCW [id number]) Out-Patient Physical Therapy Visit Information Visit Information Visit Type Discharge Summary Visit Start Time 14:50 Visit Stop Time 15:30 Total Visit Minutes 40 Visit Number 13 Number of [employer] Visits 0 Evaluation Information Evaluation Date 01/17/23 PT-OP-B Current Condition Start: 01/17/23 16:44 Freq: Status: Active Protocol: Document 01/17/23 10:25 DCW (Rec: 01/17/23 17:15 DCW [id number]) Current Condition History of Current Condition Onset Date 2-3 month history Current Complaints left hip pain and stiffness History of Current Condition Pt is a 62 year old female presenting to skilled PT with a 2-3 month history of left hip pain and stiffness. Pt is very well known to this clinic , and has been treated for multiple different injuries and painful body parts, most recently following a lumbar surgery, and then again shortly afterward due to worsening neck pain, approximately 1.5 years ago. 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 Has had to exit early from her dance class a few times, and has even started occasionally using a cane if her hip is really bad. Notes she had a massage a few days ago, and that seemed to really help. Additionally, pt has done some stretching, which is also helping to improve her discomfort. Prior Treatments and Tests Hip X-ray: IMPRESSION: Bilateral hip osteoarthritis. No acute fracture. No osseous lesion. If symptoms and/or clinical suspicion for pathology persist, further assessment with repeat, or advanced imaging (e.g., CT, MRI, or bone scan) may be helpful for further assessment. per Felton Mehta M.D. on 2022 Treatment Goals Patient/Caregiver Goals Return to dancing with relatively minimal pain or stiffness PT-OP-C Subjective Start: 01/17/23 16:44 Freq: Status: Active Protocol: Document 04/18/23 14:50 DCW (Rec: 04/18/23 15:31 DCW [id number]) OP-PT Subjective Patient Comments Patient Comments Better than it was. I know when I do the things I'm supposed to do, it's better. It's still a little glitchy, but it is much less frequent. PT-OP-F Manual Assessment Start: 01/17/23 16:44 Freq: Status: Active Protocol: Document 03/22/23 14:07 DCW (Rec: 03/22/23 14:17 DCW [id number]) Manual Assessments Soft Tissue Assessment Soft Tissue Mobility Assessment Mild-moderate hypertonia in hip flexors and, glute med/TFL , L>R PT-OP-L Special Tests Start: 01/17/23 16:44 Freq: Status: Active Protocol: Document 03/22/23 14:07 DCW (Rec: 03/22/23 14:17 DCW [id number]) Special Tests Hip Special Tests Qiana's Test Test Results Positive Left Bryce Test Results Positive Left Lateral SI Compression Test Results Negative Piriformis Test Results Negative RAMONA Test Results Left anterior ipsilateral hip pain PT-OP-M Strength Start: 01/17/23 16:44 Freq: Status: Active Protocol: Document 03/22/23 14:07 DCW (Rec: 03/22/23 14:17 DCW [id number]) Hip Strength Hip Manual Muscle Testing Right Flexion (L2) 4+ Good+ Abduction 4+ Good+ Adduction 4+ Good+ External Rotation 4+ Good+ Internal Rotation 4+ Good+ Left Flexion (L2) 4 Good Abduction 4 Good Adduction 4 Good External Rotation 4 Good Internal Rotation 4- Good- PT-OP-Q Treatments Start: 01/17/23 16:44 Freq: Status: Active Protocol: Document 04/18/23 14:50 DCW (Rec: 04/18/23 15:31 DCW [id number]) Therapeutic Exercises Supine Exercises ITB Stretch Supine Exercise Name ITB Stretch Side bilateral Hamstring Stretch Supine Exercise Name HS Stretch Side bilateral Standing Exercises Hamstring Stretch Standing Exercise Name Standing hamstring stretch Side bilateral Quad stretch Standing Exercise Name Standing quad stretch, heel to glute Side bilateral Manual Therapy Treatment Soft Tissue Mobilization back Body Location B paraspinal, ES, scar mob Mobilization Type Myofascial Release,Strumming, Sustained Pressure Body Position Prone ITB Body Location L ITB Mobilization Type Strumming,Sustained Pressure Intensity/Depth Moderate Body Position Sidelying Hip Flexors Body Location L Hip Flexor Mobilization Type Strumming,Sustained Pressure Intensity/Depth Deep Body Position Hooklying PT-OP-T Assessment and Plan Start: 01/17/23 16:44 Freq: Status: Active Protocol: Document 04/18/23 14:50 DCW (Rec: 04/18/23 15:31 DCW [id number]) Physical Therapy Assessment Impairments Impairments Functional Activities, Functional Mobility,Pain,Soft Tissue Mobility,Strength,Tone Goals Two Impairment Hip pain prevent's pt from fully participating in dance classes Humid System Operator Goal (LTG) Pt to report participating in 4 straight dance classes without any increased hip pain or need to stop early due to hip stiffness/discomfort LTG Duration 04/18/23 One Impairment Pt does not have an appropriate home exercise program Short Term Goal (STG) Pt to be independent and compliant with an appropriate HEP STG Duration Met Assessment Summary Assessment Pt doing well overall, feels comfortable with discharge to independent HEP. Is nearing completion of all goals. Physical Therapy Plan Frequency and Duration Frequency of Treatment 1x/Week Plan of Care Start Date 03/22/23 Plan of Care End Date 04/22/23 Therapeutic Interventions Therapeutic Interventions Home Exercise Program,Joint Mobilizations,Manual Therapy, Patient/Caregiver Education, Self-Care/Home Management,Soft Tissue Mobilization, Therapeutic Activities, Therapeutic Exercises Discharge Physical Therapy Discharge Comments Discharge to independent HEP Next Visit Focus/Plan Next Note Type Discharge Summary
== END 2023-04-19 14:11 | disposition home or self-care (01) ==
LOC: PHYS 14:45
PROVIDERS: Family Provider Family Medicine; PCP Family Medicine; Referring Provider Family Medicine; Visit Provider Family Medicine
DX: M25.552 Pain in left hip (principal); M15.9 Polyosteoarthritis, unspecified; M25.652 Stiffness of left hip, not elsewhere classified
CPT/HCPCS: 97110; 97140; 97161

== ENCOUNTER → 2023-04-19 15:03 | Outpatient (CLI) | payer OTHER, SELFPAY ==
--- NOTE | 2023-04-19 | DI.MG.S_ITS ---
BILATERAL DIGITAL SCREENING MAMMOGRAM 3D/2D WITH CAD: 04/19/2023 CLINICAL: Routine screening. Family history of breast cancer. Comparison is made to exams dated: 11/09/2021 mammogram, 10/19/2017 mammogram, and 11/11/2019 mammogram - [facility]. Both breasts are heterogeneously dense, which may obscure small masses (category c / 51-75% glandular tissue). Current study was also evaluated with a Computer Aided Detection (CAD) system. No significant masses, calcifications, or other findings are seen in either breast. There has been no significant interval change. IMPRESSION: NEGATIVE There is no mammographic evidence of malignancy. A 1 year screening mammogram is recommended. Based on Tyrer-Cuzick model (a risk assessment model), the patient's lifetime risk is 22.3% and her 10 year risk is 9.8%. If a patient has an elevated risk, a more comprehensive evaluation should be considered and/or a referral to a genetic counselor. The [employer], [employer], and NCCN Guidelines advise the consideration of Breast MRI as an adjunct to screening mammography in patients whose Lifetime risk to develop breast cancer is 20% or higher. This exam was interpreted at Station ID: [id number]. NOTE: For mammograms, a report in lay terms will be sent to the patient. Approximately 15% of breast malignancies will not be visualized mammographically. In the management of a palpable breast mass, a negative mammogram must not discourage biopsy of a clinically suspicious lesion. Electronically Signed By: Louisa beckman/brian:04/20/2023 13:44:54 letter sent: Normal Exam ACR BI-RADS Category 1: Negative [id number]
== END ==
PROVIDERS: Family Provider Family Medicine; PCP Family Medicine; Referring Provider Family Medicine; Visit Provider Family Medicine
DX: Z12.31 Encounter for screening mammogram for malignant neoplasm of breast (principal); Z80.3 Family history of malignant neoplasm of breast
CPT/HCPCS: 77063; 77067

== ENCOUNTER → 2023-07-11 15:00 | Outpatient (CLI) | payer OTHER, SELFPAY ==
[2023-07-11 18:36] LABS: Ur Creatinine Normal (Normal); Ur Specific Gravity Normal (Normal); Urine pH Normal (Normal)
[2023-07-11 18:37] LABS: UR Morphine/Opiate cutoff 300 Negative (Negative); Urine Amphetamines Negative (Negative); Urine Barbiturates Negative (Negative); Urine Benzodiazepines Negative (Negative); Urine Cocaine Negative (Negative); Urine MDMA Negative (Negative); Urine Methadone Negative (Negative); Urine Methamphetamines Negative (Negative); Urine Oxycodone Negative (Negative); Urine Phencyclidine Negative (Negative); Urine Tetrahydrocannabinol Positive (Negative); Urine Tricyclic Antidepressant Negative (Negative)
== END ==
PROVIDERS: Family Provider Family Medicine; PCP Family Medicine; Referring Provider Registered Nurse; Visit Provider Registered Nurse
DX: F90.0 Attention-deficit hyperactivity disorder, predominantly inattentive type (principal)
CPT/HCPCS: 80305

== ENCOUNTER → 2024-01-10 11:08 | Outpatient (CLI) | payer OTHER, SELFPAY ==
--- NOTE | 2024-01-10 11:11 | DI.RAD.S_ITS ---
PROCEDURE: XR SHOULDER RT MIN 2V INDICATIONS: PAIN IN RIGHT SHOULDER TECHNIQUE: 3 views of the shoulder were acquired. COMPARISON: None. FINDINGS: Bones: No fractures or dislocations. No suspicious bony lesions. Visualized ribs appear intact. Minimal acromioclavicular degenerative change. Prosthetic cervical disc. Soft tissues: No suspicious soft tissue calcifications. IMPRESSION: Minimal degenerative change. Dictated by: Olya Contreras M.D. on 01/10/2024 at 13:23 Approved by: Olya Contreras M.D. on 01/10/2024 at 13:24
== END ==
PROVIDERS: Family Provider Family Medicine; PCP Family Medicine; Referring Provider Family Medicine; Visit Provider Family Medicine
DX: M25.511 Pain in right shoulder (principal)
CPT/HCPCS: 73030

== ENCOUNTER → 2024-02-22 19:20 | Outpatient (CLI) | payer OTHER, SELFPAY ==
--- NOTE | 2024-02-22 | DI.MRI.S_ITS ---
PROCEDURE: MR LUMBAR SPINE WO/W CON INDICATIONS: LUMBAR PAIN/DISCITIS TECHNIQUE: Noncontrast sagittal T1 spin echo and T2 fast spin echo, sagittal STIR, axial T1 and T2 fast spin echo through the lumbar spine. In cases with scoliosis, additional coronal T2 fast spin echo may be performed. After the administration of contrast, sagittal and axial T1 spin echo with fat saturation through the lumbar spine. COMPARISON: [facility], MR, MR LUMBAR SPINE WO CON, 07/30/2020, 13:16. [facility], CR, XR LUMBAR SPINE 2 OR 3 VIEWS, 01/04/2022, 15:12. [facility], CR, XR LUMBAR SPINE 2 OR 3 VIEWS, 08/30/2021, 14:23. FINDINGS: Image quality: There is artifact associated with the metallic hardware. This examination is limited by involuntary motion artifact. Alignment and curvature: There is minimal retrolisthesis seen at L1-L2 and L2-L3. Minimal anterolisthesis is seen at L4-L5 and L5-S1. Marrow: Marrow is of normal overall signal. No acute vertebral body compression fractures. No suspicious marrow enhancement. Spinal cord: Conus medullaris terminates at the L1 level. Visualized spinal cord demonstrates normal signal, without suspicious enhancement. Paraspinous soft tissues: No paravertebral masses or abnormal enhancement. Extensive postoperative change can be seen, with bilateral pedicle screws L2 through S1. Disc spacers can be seen throughout the fused region. Vertical fixation rods are seen. There has been removal of portions of the posterior elements. T12-L1: At least moderate loss of disc height and disc signal can be seen. Reactive marrow endplate changes are seen, which demonstrate mixed T1 weighted and T2-weighted signal, and are attributed to a combination of edema and fatty metaplasia (Modic type I and Modic type II changes). Moderate disc bulge is seen, which is eccentric to the left. Mild facet joint hypertrophy is seen. There is moderate left-sided and no right-sided neural foraminal narrowing. No significant central canal narrowing is seen. These degenerative changes are clearly worse compared to 2019. L1-L2: Moderate loss of disc height is seen. Loss of disc signal is seen. Moderate generalized disc bulge is seen. There is a superimposed central disc extrusion. Mild facet joint hypertrophy is seen. Mild bilateral neural foraminal narrowing is seen. Mild to moderate central canal narrowing is seen. These degenerative changes are definitely worse than in 2020. L2-L3: Mild generalized disc bulge is seen. Mild facet joint hypertrophy is seen. No significant neural foraminal or central canal narrowing can be seen. The degree of central canal narrowing is improved compared to the preoperative MRI. L3-L4: Mild generalized disc bulge is seen. Mild facet joint hypertrophy is seen. No significant neural foraminal or central canal narrowing can be seen. This level is improved compared to 2020. L4-L5: Mild generalized disc bulge is seen. No significant neural foraminal narrowing is seen. The central canal is widely patent. This level is clearly improved compared to the preoperative MRI. L5-S1: Mild generalized disc bulge is seen. Moderate facet joint hypertrophy is seen. There is jvbr-[id number] left-sided and no right-sided neural foraminal narrowing. No central canal narrowing is seen. This level is improved compared to 2020. IMPRESSION: Extensive postoperative changes are seen, with pedicle screws seen L2 through S1. Throughout the postoperative region, the degrees of degenerative narrowing are clearly improved compared to the preoperative 2020 MRI. Interval worsening of degenerative change seen at T12-L1 and L1-L2. Dictated by: Luciano Reyes M.D. on 02/25/2024 at 10:21 Approved by: Luciano Reyes M.D. on 02/25/2024 at 10:28
== END ==
LOC: MRI 19:21
PROVIDERS: Family Provider Family Medicine; PCP Family Medicine; Referring Provider Emergency Medicine Sports Medicine; Visit Provider Emergency Medicine Sports Medicine
DX: M47.815 Spondylosis without myelopathy or radiculopathy, thoracolumbar region (principal); M47.816 Spondylosis without myelopathy or radiculopathy, lumbar region; M48.061 Spinal stenosis, lumbar region without neurogenic claudication; M48.07 Spinal stenosis, lumbosacral region; M54.50 Low back pain, unspecified; Z98.1 Arthrodesis status
CPT/HCPCS: 72158; A9579

== ENCOUNTER → 2024-05-08 12:26 | Outpatient (CLI) | payer OTHER, SELFPAY ==
--- NOTE | 2024-05-08 12:51 | EKG_ITS ---
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
[2024-05-08 12:57] LABS: Add Manual Diff / Slide Review NO; Basophils Absolute Auto 0 /uL (0-100); Basophils Percent Auto 0.8 % (0-2); Eosinophils Absolute Auto 100 /uL (0-450); Eosinophils Percent Auto 1.8 % (2-4); Hematocrit 37.5 % (36-46); Hemoglobin 12.4 g/dL (12.0-16.0); Lymphocytes Absolute Auto 1300 /uL (1100-4500); Mean Corpuscular Hemoglobin 29.3 PG (26-34); Mean Corpuscular Volume 88.7 fL (80-100); Monocytes Absolute Auto 600 /uL (0-900); Neutrophils Absolute Auto 3900 /uL (1500-7000); Neutrophils Percent Auto 65.4 % (50-75); Platelet Count 277 X10^3/uL (150-400); Red Blood Cell Count 4.23 X10^6/uL (4.0-5.2); Red Cell Distribution Width 14.5 % (11.6-14.8)
[2024-05-08 13:10] LABS: Hemoglobin A1C% w Est Avg Glu 4.9 % (4.0-6.0)
[2024-05-08 13:11] LABS: Albumin 4.6 g/dL (3.5-5.0); Blood Urea Nitrogen 26 mg/dL (7-17); Calcium 9.5 mg/dL (8.4-10.2); Carbon Dioxide 26 mmol/L (22-32); Chloride 105 mmol/L (98-107); Estimated Glomerular Filt Rate > 60 mL/min (>60); Glucose 90 mg/dL (80-110); HEMOLYSIS < 15 (0-50); Potassium 4.8 mmol/L (3.4-5.1); Sodium 139 mmol/L (137-145)
[2024-05-08 13:22] LABS: Prealbumin 29.2 mg/dL (17.6-36.0)
[2024-05-08 14:49] LABS: Vitamin D 25 Hydroxy (D3) 33.3 ng/mL (30.0-100.0)
== END ==
PROVIDERS: Family Provider Family Medicine; PCP Family Medicine; Referring Provider Orthopaedic Surgery Adult Reconstructive Orthopaedic Surgery; Visit Provider Orthopaedic Surgery Adult Reconstructive Orthopaedic Surgery
DX: Z01.818 Encounter for other preprocedural examination (principal); R77.0 Abnormality of albumin; E55.9 Vitamin D deficiency, unspecified; R73.9 Hyperglycemia, unspecified; Z01.812 Encounter for preprocedural laboratory examination
CPT/HCPCS: 36415; 80048; 82040; 82306; 83036; 84134; 85025; 93005

== ENCOUNTER 2024-06-20 06:15 | Day surgery (SDC) | payer OTHER, SELFPAY ==
[2024-06-13 09:55] VITALS: BMI 25.0
[2024-06-20] VITALS (13 sets, daily range): BP systolic 96–122; BP diastolic 53–81; PULSE 58–89; RESP 13–19; TEMP 35.9–37.8; O2SAT 96–100; BMI 24.0; BMI 30.9
--- NOTE | 2024-06-20 | DI.RAD.S_ITS ---
PROCEDURE: XR HIP W PEL IF DONE LT 2V INDICATIONS: TOTAL HIP TECHNIQUE: 3 views of the hip were acquired. [facility], 15:27. [facility], ANGELICA, XR HIP W PEL IF DONE SANDY 3TO4V, 07/29/2019, 16:04. FINDINGS: Bones: Intraoperative images were obtained for left hip arthroplasty. Soft tissues: No suspicious calcifications. IMPRESSION: Intraoperative fluoroscopic guidance for left hip arthroplasty. Dictated by: Sher Armendariz M.D. on 06/20/2024 at 13:30 Approved by: Sher Armendariz M.D. on 06/20/2024 at 13:32
--- NOTE | 2024-06-20 06:00 | DI.RAD.S_ITS ---
PROCEDURE: XR HIP W PEL IF DONE LT 2V INDICATIONS: ROCIO TECHNIQUE: 2 views of the hip were acquired. [facility], 06/20/2024, 8:54. [facility], ANGELICA, XR HIP W PEL IF DONE LT 2V, 12/01/2022, 15:27. FINDINGS: Bones: Cmyj-[id number]-jnxfxvyv right hip arthrosis. Left hip arthroplasty is present. Soft tissues: Postsurgical changes IMPRESSION: Postsurgical changes following left hip arthroplasty Dictated by: Sher Armendariz M.D. on 06/20/2024 at 13:32 Approved by: Sher Armendariz M.D. on 06/20/2024 at 13:32
[2024-06-20] MEDS: MELOXICAM 7.5 MG TABLET PO (07:00)
[2024-06-20] MEDS: LACTATED RINGERS 1,000 ML 42 ML IV ×2 (07:00→08:55)
[2024-06-20] MEDS: ACETAMINOPHEN 325 MG TABLET 975 MG PO (07:00)
--- NOTE | 2024-06-20 07:27 | SUR.OPER ---
Supine on padded [place] table with bilateral legs secured in padded positioning boots and suspended in positioning spars, operative leg in traction per surgeon. Head on one pillow. Arm on non-operative side secured on padded armboard <90 degrees abduction. Arm on operative side padded and resting across chest then secured with tape over sheet. Padded perineal post in place per surgeon.
--- NOTE | 2024-06-20 07:51 | PM.PREOP ---
Pre-operative Note Interval Note History & Physical reviewed/Exam performed by Physician: Yes Changes to H&P: No
[2024-06-20] MEDS: CEFAZOLIN 2 GM/100 ML PREMIX 100 ML IV ×3 (08:00→23:33)
[2024-06-20] MEDS: TRANEXAMIC ACID 1,000 MG VIAL 2000 MG INJ ×2 (08:08→09:21)
[2024-06-20] MEDS: ROPIVACAINE/EPI/CLONIDINE/KET 50 ML SYRINGE INJ (08:24)
--- NOTE | 2024-06-20 09:28 | P.OP_ITS ---
Operative Date/Time/Diagnoses Date of procedure: 06/20/24 Pre-op diagnosis: Left hip osteoarthritis Prior spinal fusion Post-op diagnosis: same Procedure & Clinicians Procedure: Uncemented left total hip arthroplasty with mono block dual mobility articulation Same procedure as scheduled: Yes Surgeon: Mando [address] Loan Documentation Specialist: Morena Gilbert Anesthesia Type: Spinal, Sedation and Local Operative Notes Estimated Blood Loss (mL): 150 Procedure in detail: Left mono block dual mobility Uncemented Direct Anterior Depuy Total Hip Arthroplasty: Implants: * Gilliam Bimentum size 53 cup? * Actis femoral stem size 5 standard offset? * 28 mm +5 ceramic femoral head? * 53/28 Altrx dual mobility liner Procedure Summary: This 63-year-old female patient had a history of an extensive spinal fusion. She had severe left hip arthritis. Based on her prior spinal fusion I recommended an anterior approach and dual mobility articulation. In order to obviate the possibility of corrosion possibly leading to long-term metal ion release I utilized a mono block cup. I was able to achieve an appropriate pinch fit with a size 53 cup. She had been templated for a size 6 stem however I achieved rotational stability with a size 5 broach so I upsized my head from a templated +1.5 to a +5. This was appropriate on all parameters when tested. These final implants were utilized. She had no hip instability with manual external rotation past 140? with the final implants in place. Note that during the today's procedure I did notice that when extending her hip for the broaching portion of the procedure the foot did not smoothly track on the bar for the traction table. I immediately brought the foot back up and adjusted it to ensure that no excess tension was applied to the leg during hip extension. Traction had been released prior to hip extension. After I brought the hip immediately back up into neutral hip extension the table commercial real estate assistant noted that the track had become somewhat jammed and had likely gotten stuck during the hip extension process. The hip was only extended in that position for a few seconds before I immediately brought it back up. After we reassessed the traction table set up I noted more appropriate tension on the hip while extending it. I will closely inspect the patient for any sort of femoral nerve issue postoperatively and ensure that we appropriately lubricate the traction table track before we use it again. Procedure in Detail: This patient was seen preoperatively and evaluated for hip pain which was refractory to numerous nonoperative treatment modalities. Their hip pain correlated with radiographic changes demonstrating significant degeneration in the hip joint. The risks and benefits of continued nonoperative management versus operative management were discussed at length and all of the patient?s questions were answered. Additional educational materials providing further details beyond our discussion in clinic were provided via a publicly available patient education video which included the incidence of medical complications associated with total hip arthroplasty, reasons for revision following total hip arthroplasty, and patient satisfaction rates following total hip arthroplasty. That video can be accessed at [email or web address] . With this understanding of the risks inherent to the procedure, the patient elected to move forward with operative management. Following preoperative optimization, the patient was scheduled for surgery. The patient was met in the preoperative holding area the day of the procedure and all questions were answered. The patient?s nares were swabbed with betadine in order to decolonize them from MRSA. Informed consent was signed and the left limb was marked with indelible ink.? The patient was brought back to the operating room where anesthesia was induced. The patient was transferred to the [place] table and all bony prominences were padded. The operative site was prepped and draped in the usual sterile fashion. Prior to incision, tranexamic acid and cefazolin were administered. Operative templating images were displayed demonstrating the anticipated implant sizes and correct operative extremity. A timeout procedure was performed verifying the patient?s identity, medical comorbidities, allergies, relevant medications, anesthesia type and the surgical plan. All present were in agreement. The assistance of a physician commercial real estate assistant was required for positioning, room setup, soft tissue retraction and wound closure. Without this assistance, the procedure would have been significantly more challenging and time consuming.?? A direct anterior approach to the hip was utilized. This was performed with a longitudinal incision through a Heuter interval. The incision was planned 2 cm distal and 2 cm lateral to the ASIS extending towards the lateral patella, in line with the muscle body of the TFL. Following incision, the subcutaneous tissue was dissected while taking care to avoid injury to the lateral femoral cutaneous nerve. The fascia overlying the TFL was identified by dissecting off the overlying fat and identifying perforating vessels to the TFL. The TFL fascia was incised and dissected away from the medial border of the TFL. A cobra retractor was placed over the superior femoral neck between the abductors and the hip capsule and used to reflect the TFL laterally. A Denali self-retainer was then placed in the distal aspect of the wound between the TFL and the rectus femoris. This was tensioned to open up the direct anterior interval and the lateral circumflex vessels were identified and coagulated using electrocautery. The floor of the TFL fascia was incised, exposing the pericapsular fat overlying the hip capsule. A second cobra retractor was placed on the inferior femoral neck. A double-bent soft tissue retractor was placed on the anterior wall of the acetabulum and used to tension the reflected head of rectus femoris, which was then released in order to limit soft tissue tension. A capsulotomy was made in the midline of the anterior hip capsule in line with the femoral neck ending at the vastus tubercle. The double-bent retractor was removed in order to limit the amount of time that a soft tissue retractor remained on the anterior wall and protect the femoral nerve. Tag stitches were placed in the superior and inferior leaflets of the hip capsule. An Aguilar soft tissue retractor was introduced over the tag stitches and tensioned in the interval between the rectus femoris and the TFL in order to retract and protect those muscles. The cobra retractors were replaced intracapsularly, with one over the superior neck in the pocket created by the base of the greater trochanter and the other on the femoral head. The capsulotomy was extended laterally to the base of the greater trochanter and medially to the lesser trochanter. This required externally rotating the hip. Once the lesser trochanter had been identified, a neck cut was planned according to measurements from preoperative templating. A ruler was cut at the length measured between the superior aspect of the lesser trochanter and the collar of the prosthesis. This line was extended towards the inferior aspect of the lateral cobra retractor to plan a cut which would leave minimal residual femoral neck laterally. The neck was cut at 60 degrees of external rotation along that line. A second cut was performed to remove a large napkin ring and facilitate head extraction. The napkin ring cut and femoral head were removed.?? A broad anterior wall retractor was placed between the labrum and the anterior capsule so that the anterior capsule would prevent capturing and pinching the femoral nerve anteriorly. An additional retractor was placed on the posterior wall. External rotation and traction were applied through the [place] table so that the cut surface of the femoral neck would not restrict access to the acetabulum. The labrum was excised sharply and the pulvinar was excised with electrocautery to limit bleeding from branches of the obturator artery. Acetabular reamers were selected based on preoperative templating and measurements of the excised femoral head. These were introduced into the acetabulum. Fluoroscopy was utilized to replicate a standing AP pelvis radiograph by centering over the pelvis, rotating until there was appropriate symmetry between the obturator foramen, and introducing caudal tilt to match the position of the pubic symphysis relative to the sacrococcygeal junction according to the patient?s anatomy. Fluoroscopy was utilized to ensure appropriate reaming depth. Once satisfied with the reaming depth corresponding to the preoperative template and the pinch fit between the columns, an appropriate sized acetabular cup was selected which would provide 1 mm of press-fit. This cup was introduced and manipulated until appropriate abduction and anteversion angles were obtained with careful attention to appropriate abduction and anteversion angles as evaluated by the position of the cup relative to the anterior and posterior robles of the acetabulum and the AP fluoroscopy which recreated the patient?s standing radiograph. The cup was impacted into place. Attention was then turned to the femur. All retractors were removed, traction was released, a retractor was placed in the interval between the hip capsule and the gluteus minimus, and the hip was externally rotated to 90 degrees. Traction was applied through the [place] table to tension the lateral capsule and this was released using electrocautery. Traction was released and a [place] hook was placed posteriorly around the proximal femur at the level of the vastus ridge. The tab le height was lowered in order to restrict the tension on the anterior structures during hip hyperextension to limit the risk of femoral nerve palsy. With traction off and the hip at 90 degrees of external rotation, the hip was hyperextended and adducted while manually elevating the femur away from the acetabulum with the [place] hook to ensure it would not be caught behind the greater trochanter. An asymmetric retractor was placed over the calcar and a broad double-pronged retractor was placed over the greater trochanter. The tag stitch capturing the lateral leaflet of the capsule was moved to the medial side, leaving the conjoined and piriformis tendons isolated in the face of the greater trochanter. The hip was externally rotated and elevated. A release of the conjoined tendon was not necessary in order to obtain adequate exposure for broaching. The canal was opened with an opening broach and a rasp was used to remove cancellous bone. A rongeur was used to remove the residual lateral bone at the base of the greater trochanter to avoid placing the stem in varus. The femur was then broached to the appropriate sized stem yielding good rotational fit and fill of the canal as well as appropriate version of the stem trial. Neck and head trials were placed, all retractors were removed and the hip was returned to neutral abduction and extension. I then reduced the hip. Initial trialing was performed with a size 5 broach, a standard offset neck and a +5 head. I initially manually externally rotated the hip and found no instability. I then locked the hip in 45 degrees of external rotation and dropped it to the floor with traction off which demonstrated no instability. An AP pelvis fluoroscopic image matching the preoperative standing radiograph with both lesser trochanters visible and both hips in 40 degrees of external rotation demonstrated appropriate leg length and offset. AP and lateral hip fluoroscopic images were obtained to evaluate the broach size which demonstrated appropriate broach fit. The hip was dislocated and I returned to the broaching position. Based on my evaluation during initial trialing I planned to place these definitive implants. The definitive stem was placed and the trunnion was cleaned and dried. I placed a ceramic head onto the trunnion and impacted it into place on the Ortiz taper.?? All retractors were removed and the hip was reduced. A dilute mixture of betadine and peroxide was used to bathe the soft tissues during final fluoroscopic assessment. Appropriate component positioning was confirmed on an AP pelvis radiograph with the operative and nonoperative legs in 40 degrees of external rotation, evaluating leg length and offset. Appropriate stem fill was evaluated on AP and lateral hip radiographs. No fractures were identified on these radiographs. There was no hip instability with maximum (greater than 140) external rotation as well as a 45 degree drop test. The hip was copiously irrigated with pulse lavage. The capsule was closed with absorbable interrupted suture. The TFL fascia was closed with barbed suture while carefully protecting the lateral femoral cutaneous nerve from entrapment. A mixture of Ropivacaine, Epinephrine, Clonidine and Toradol was infiltrated throughout the soft tissues. The skin was closed with 2-0 and 3-0 sutures. Surgical glue was applied and a soft dressing was placed.??The sponge, in strument and needle counts were reported as being correct at the end of the case.??No obvious complications occurred. The patient was transferred from the [place] table back to a stretcher. The patient emerged from anesthesia without difficulty and was taken to the PACU in a stable condition.? Plan for aftercare: * Anterior hip precautions * Weightbearing as tolerated * Aspirin 81 twice per day for DVT prophylaxis * Anticipate discharge home today * Change into normal clothes upon arrival on the hospital floor * Mobilize in the halls as much as is logistically possible. If physical therapy is unavailable for mobilization, then patient should mobilize with nursing staff * Multimodal pain regimen with no IV opioids ordered * Apply ice machine to operative hip. Ensure that sufficient ice is in the chamber for the pad to remain cold * Follow up at [facility] in 2 weeks * Detailed postoperative instructions available at [email or web address]
[2024-06-20] MEDS: ACETAMINOPHEN 325 MG TABLET 650 MG PO ×3 (11:17→22:27)
[2024-06-20] MEDS: TRAMADOL 50 MG TABLET PO (11:17)
[2024-06-20] MEDS: OXYCODONE IR 5 MG TABLET PO ×2 (11:17→20:37)
[2024-06-20] MEDS: LACTATED RINGERS 1,000 ML 100 ML IV (11:19)
[2024-06-20] MEDS: HYDROMORPHONE 0.5 MG INJ IV (12:27)
[2024-06-20] MEDS: hydrOXYzine HCL 25 MG TABLET 50 MG PO ×2 (12:28→18:12)
--- NOTE | 2024-06-20 15:36 | PM.PN.1 ---
Subjective Subjective Interval history: Lanny had a lot of pain after surgery. Her pain was actually very minimal in the PACU but after she got up to the floor she had a significant spike in pain. I think that as her spinal wore off she became much more comfortable. She received IV opioids and when I returned for a repeat examination she would fallen asleep. She is somnolent but interactive and conversant and has her good humor about her at this point. I definitely want her to stay overnight given the need for IV opioids in the possibility that she might need another dose. She has brought in her home ice machine which is doing a much better job of keeping her operative site cold and I want her to continue using that. She did have a moment where her leg was in excessive traction due to the traction table jamming during the case but this was only momentary as I immediately brought her leg out of extension and assessed the functioning of the track to ensure she did not have excess tension on her leg. I assessed her femoral nerve function during my last examination and found that she had intact knee extension with no discernible motor deficits indicating she does not have a femoral nerve palsy. Exam Vital Signs (past 8 hours): - 06/20/24 09:46 06/20/24 09:51 06/20/24 09:56 Temperature 97.6 F Pulse Rate 89 85 81 Respiratory Rate 18 17 16 Blood Pressure 104/56 L 106/64 106/62 Pulse Oximetry 96 98 98 Oxygen Delivery Method Room Air Room Air Room Air Oxygen Flow Rate 06/20/24 10:02 06/20/24 10:08 06/20/24 10:20 Temperature 97.3 F L 96.9 F L Pulse Rate 81 79 58 L Respiratory Rate 15 14 15 Blood Pressure 114/66 115/67 122/70 Pulse Oximetry 97 98 99 Oxygen Delivery Method Room Air Room Air Oxygen Flow Rate 0 06/20/24 10:50 06/20/24 11:20 06/20/24 12:20 Temperature 96.6 F L 96.9 F L Pulse Rate 62 71 68 Respiratory Rate 13 16 19 Blood Pressure 114/69 112/60 112/53 L Pulse Oximetry 100 100 100 Oxygen Delivery Method Oxygen Flow Rate 0 0 0 06/20/24 12:20 06/20/24 13:20 Temperature 96.9 F L Pulse Rate 68 68 Respiratory Rate 16 18 Blood Pressure 122/70 120/68 Pulse Oximetry 100 100 Oxygen Delivery Method Oxygen Flow Rate 0 0 Oxygen Delivery Method Room Air Oxygen Flow Rate 0 PFSH Medical History (Updated 06/13/24 @ 10:19 by Yuki Becerra, RN) ADHD Depression Osteoarthritis Surgical History (Updated 06/13/24 @ 10:35 by Yuki Becerra, RN) H/O cervical spine surgery (10/23/15) Hx of tonsillectomy H/O spinal fusion (05/2024) Cataract extraction status (2020) Social History household members: spouse Smoking Status: Never smoker alcohol intake: current Assessment & Plan Time-Based Coding :: [TOTAL MINUTES] spent with patient and on the chart (including review of chart, obtaining history, exam, reviewing outside data, placing orders, documenting exam and treatment plan, and counseling patient) on [DATE]. Quality VTE Deep Vein Thrombosis/Pulmonary Embolism Present on Admission: No
--- NOTE | 2024-06-20 15:45 | PT.IIE ---
Current Diagnoses Unilateral primary osteoarthritis, left hip (06/20/24) Surgery Performed Operation Date: 06/20/24 07:45 Actual Procedures p Total Hip Arthroplasty/Anterior Approach(Left) - Mando Street MD Surgical History (Last Updated 06/13/24 @ 10:35 by Yuki Becerra, RN) Cataract extraction status (2020) H/O cervical spine surgery (10/23/15) H/O spinal fusion (05/2024) Hx of tonsillectomy Medical History (Last Updated 06/13/24 @ 10:19 by Yuki Becerra, RN) ADHD Depression Osteoarthritis Physical Therapy Inpatient Evaluation/Re-Eval M1 PT/OT-IP Prior Functional Status Start: 06/20/24 17:11 Freq: NEEDED Status: Active Protocol: Document 06/20/24 15:45 AB (Rec: 06/20/24 17:25 AB [id number]) Medical Review Prior Functional Status Medical History Reviewed Yes Communication able to make needs known Mobility and Gait pt stated that she was modified indpeendent with all mobilities and ambulation using SPC Social History Household Members spouse Living Arrangements House Number of Floors (Floors) One Floor Number of Stairs To Enter/Railing? no steps to enter the house Home Environment High Toilet,Walk in Shower Home Equipment Front Wheel Walker,Straight Cane,Raised Toilet Seat w/ Armrests,Shower Seat with Backrest,Hand Held Shower,Grab Bars In Shower Additional Social History Comment pt has L side bed rail M2 PT-IP Current Condition Start: 06/20/24 17:11 Freq: NEEDED Status: Active Protocol: Document 06/20/24 15:45 AB (Rec: 06/20/24 17:25 AB [id number]) Physical Therapy Current Condition Current Condition Evaluation Date 06/20/24 Treatment Diagnosis s/p L ROCIO anterior; difficulty in walking Onset Date 06/20/24 M3 PT-IP Subjective Start: 06/20/24 17:11 Freq: NEEDED Status: Active Protocol: Document 06/20/24 15:45 AB (Rec: 06/20/24 17:25 AB [id number]) Subjective Physical Therapy Visit Type Type Initial Evaluation Visit Start Time 15:45 Visit Stop Time 16:45 Number of LANGUAGE TUTOR Visits 0 Physical Therapy Visit Comments Patient Comments agreeable to do PT Therapy Pain Assessment Pain When Pain Assessed At Rest Pain Present Pain Present Pain Reported Location Left Hip Intensity 4 Scale Used increases with mobility Pain Management Techniques Apply Cold,Distraction, Modification of Treatment,Re- positioning,Timing of Activity with Medications M4 PT-IP Mobility and Gait Start: 06/20/24 17:11 Freq: NEEDED Status: Active Protocol: Document 06/20/24 15:45 AB (Rec: 06/20/24 17:25 AB [id number]) PT-Bed Mobility Assessment Rolling Type of Rolling Log Rolling Level of Assist Minimal Assistance Supine to Sit Supine to Sit Minimal Assistance,1 Person Assistance,Bedrails Sit to Supine Sit to Supine Moderate Assistance,1 Person Assistance,Bedrails PT-Transfer Assessment Sit to and From Stand Sit to and from Stand Minimal Assistance,Maximum Assistance,1 Person Assistance ,Use of Upper Extremities Equipment Transfer Assistive Device Gait Belt,Front Wheeled Walker Orthotic/Prosthetic Devices or Brace: No Transfers Transfer Destination Toilet Transfer Technique ambulated Transfer Ability Level of Assist Minimal Assistance,1 Person Assistance,Use of Upper Extremities Comments Mobility Comments pt supine in bed. spouse in room. obtained PLOF and home set up from pt and spouse. post-op folder provided and reviewed contents. educated pt and spouse regarding anterior hip precautions. pt able to recall. BP in supine: 113/62. pt completed supine to sit log roll min A and cues . pt stated that she usually does log roll to get up. pt able to sit on EOB SBA. BP checked: 116/65. pt requested to use the toilet. completed sit to stand min A and cues and ambulated to the toilet using FWW min A and cues. presents with very slow urvashi and increase LLE guarding. pt needed max A for controlled desecent to the toilet using grab bar with c/o increase L hip pain. pt c/o nausea. BP checked: 96/54. pt stated that she will walk back to the bed. sit to stand from the toilet min A. assisted pt with brief management. ambulated back to the bed using FWW min A and cues. c/o nausea. BP checked: 90/62. assisted pt back to bed. required mod A for LUE elevation to bed for sit to supine. positioned pt in bed. call light and table placed within reach. BP supine at end of PT session: 108/57. educated pt and spouse on how to do car transfers. informed nurse regarding pt's BP. Gait Assessment Gait Gait Assistance Required: Minimum Assistance Distance (Feet) 12 Able to Maintain Weight Bearing Status Yes During Gait Assistive Devices Assistive Device Gait Belt,Front Wheeled Walker Orthotic/Prosthetic Devices or Brace: No Gait Deviations General Gait Pattern Antalgic,Decreased Feet Clearance Factors Limiting Gait Function Factors Limiting Gait Function Decreased Activity Tolerance, Decreased Strength,Limited Range of Motion,Pain,Poor Balance,Poor Safety Awareness PT-Balance Assessment Sitting Balance and Reactions Static Sitting Balance Ability Good Dynamic Sitting Balance Ability Good Standing Balance and Reactions Static Standing Balance Ability Fair Dynamic Standing Balance Ability Fair Device Used FWW M5 PT-IP Objective Assessments Start: 06/20/24 17:11 Freq: NEEDED Status: Active Protocol: Document 06/20/24 15:45 AB (Rec: 06/20/24 17:25 AB [id number]) Orientation Orientation/Cognition Level of Alertness Alert Orientation Name,Place,Situation Language Function Ability No Deficits Noted Safety Awareness Decreased Safety Awareness Memory Description Short Term Impaired Gross Range of Motion Lower Extremity ROM Assessment Left Impaired Strength Lower Extremity Strength Assessment Left Impaired Hip 3-/5 Knee 4-/5 Coordination Assessment Gross Coordination Gross Coordination WNL Sensation Assessment Sensation Sensation Description Numbness Comments Sensation Comments R foot numbness chronic Muscle Tone Muscle Tone WNL Yes M6 PT-IP Treatment Start: 06/20/24 17:11 Freq: NEEDED Status: Active Protocol: Document 06/20/24 15:45 AB (Rec: 06/20/24 17:25 AB [id number]) Physical Therapy Treatment Education Education Provided Precautions,Weight Bearing Status,Post-Op Packet,Safety M7 PT-IP Assessment and Plan Start: 06/20/24 17:11 Freq: NEEDED Status: Active Protocol: Document 06/20/24 15:45 AB (Rec: 06/20/24 17:25 AB [id number]) PT Summary Assessment and Plan Potential Rehabilitation Potential Fair Status of Condition at Evaluation Evolving Summary Impairments Pain,ROM,Strength,Balance, Coordination,Sensation,Tone, Cognition,Bed Mobility, Transfers,Gait,Activity Tolerance Assessment Summary pt is a 63 y/o F s/p L ROCIO anterior approach POD 0. pt has L hip anterior precautions and is WBAT. pt needing min to mod A for bed mobility, min to max A for sit<>stand and min A for ambulation using FWW . pt with decrease in BP during activity with c/o nausea. pt just had surgery this morning and will likely improve during hospital stay. pt lives with spouse and spouse will assist pt at home. will conduct caregiver training when appropriate. Goals Bed Mobility Goal Independent Transfer Goal Independent,Front Wheeled Walker Gait Goal Independent,Front Wheel Walker Gait Distance 150 Days to Meet Goals 5 Frequency of Treatment Frequency Of Treatment Twice a Day Treatment Plan Physical Therapy Treatment Plan Bed Mobility Training,Transfer Training,Gait Training, Therapeutic Exercise,Balance Retraining,Post Op Education, Discharge Planning,Hot or Cold Pack,Neuromuscular Re-ed, Coordination Retraining,Manual Therapy Precautions Anterior Hip Precautions No Hip Extension,No Hip External Rotation Weight Bearing Status Weight Bearing Status Weight Bear as Tolerated Allowed Weight Bearing Amount (enter % LLE WBAT or #) (%) Recommendations To Nursing Amount of Assist Needed 1 Person Assist Discharge Recommendations PT Discharge Recommendations Home with Assistance, Outpatient PT Transportation Needs at Discharge Private Vehicle
[2024-06-20] MEDS: CELECOXIB 200 MG CAPSULE PO (20:37)
[2024-06-20] MEDS: ASPIRIN EC 81 MG TABLET PO (20:37)
[2024-06-20] MEDS: GABAPENTIN 300 MG CAPSULE 600 MG PO (20:37)
[2024-06-20] MEDS: DOCUSATE 100 MG CAPSULE PO (20:37)
[2024-06-21] MEDS: ACETAMINOPHEN 325 MG TABLET 650 MG PO ×2 (04:54→11:02)
[2024-06-21 05:00] VITALS: TEMP 37.2
--- NOTE | 2024-06-21 07:34 | P.DS_ITS ---
History of Present Illness History of Present Illness Date Patient Seen: 06/21/24 Time Patient Seen: 07:34 Chief complaint: left ROCIO Anterior *OPB* Narrative: Operative Date/Time/Diagnoses Date of procedure: 06/20/24 Pre-op diagnosis: Left hip osteoarthritis Prior spinal fusion Post-op diagnosis: same Procedure & Clinicians Procedure: Uncemented left total hip arthroplasty with mono block dual mobility articulation Same procedure as scheduled: Yes Surgeon: Mando Street Director Learning And Development: Morena Gilbert Anesthesia Type: Spinal, Sedation and Local Operative Notes Estimated Blood Loss (mL): 150 Procedure in detail: Left mono block dual mobility Uncemented Direct Anterior Depuy Total Hip Arthroplasty: Implants: * Lena Bimentum size 53 cup? * Actis femoral stem size 5 standard offset? * 28 mm +5 ceramic femoral head? * 53/28 Altrx dual mobility liner Discharge Providers Provider Discharge Date: 06/21/24 Primary care physician: Gilberto Iyer MD Consults: 06/20/24 06:00 Consult to Anesthesiology Routine Comment: Consulting Provider: Anesthesiologist Reason for consultation: Regional block for post operative pain control 06/20/24 10:36 Consult to Discharge Planning Routine Comment: Consult to Physical Therapy Evaluate & Treat Comment: Physician Instructions: post op ROCIO protocol Discharge provider: Morena Gilbert PA-C Summary Hospital Course Discharge Diagnosis: Left hip osteoarthritis, s/p left total hip arthroplasty Hospital Course: 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 On the morning of POD# 1, she was feeling well and wanted to go home. She was eating and voiding without difficulty and had been evaluated by PT, who felt she was appropriate for discharge with help available. Her pain was well-controlled with oral medication. Exam Vital Signs (past 8 hours): - 06/21/24 05:00 Temperature 99 F Oxygen Delivery Method Room Air Oxygen Flow Rate 0 Narrative Exam Narrative: 5/5 strength in hip flexors, quadriceps, hamstrings, PF, DF, EHL on left. Sensation to light touch intact throughout LLE. Calf soft and compressible. Aquacel dressing CDI. PFSH Medical History (Updated 06/13/24 @ 10:19 by Yuki Becerra RN) ADHD Depression Osteoarthritis Surgical History (Updated 06/13/24 @ 10:35 by Yuki Becerra RN) H/O cervical spine surgery (10/23/15) Hx of tonsillectomy H/O spinal fusion (05/2024) Cataract extraction status (2020) Social History household members: spouse Smoking Status: Never smoker alcohol intake: current Discharge Assessment & Plan Assessment and Plan Assessment: Left hip osteoarthritis, s/p left total hip arthroplasty Plan of Treatment: Discharge home, multimodal pain control, ASA 81 mg BID for VTE prophylaxis, outpt PT, f/u in office as scheduled. Discharge Plan Discharge Plan Patient Disposition: Home Discharge orders & Medications Discharge Orders: Discharge (Order); Ordered 06/21/24 Ordered By: Morena Gilbert Prescriptions: Continued methylphenidate HCl [Concerta] 36 MG tablet extended release 24hr 2 tab PO QAM Qty: 0 bupropion HCl [Wellbutrin XL] 150 MG tablet extended release 24 hr 3 tab PO QAM Qty: 0 celecoxib 200 mg capsule 200 mg PO BID methylphenidate HCl [Ritalin] 5 mg tablet 5 mg PO DAILY PRN (Reason: break through ADHD) terbinafine HCl 250 mg tablet 250 mg PO DAILY gabapentin 300 mg capsule 600 mg PO BID sertraline 50 mg tablet 50 mg PO DAILY acetaminophen [Tylenol Arthritis] 650 mg Tablet Extended Release 1,300 mg PO Q12H Follow up/Referrals: Mando Street MD [Physician] - 07/04/24 3:00 pm (Follow up w/ Anselmo Sun PA-C, at [facility] in [place].) Gilberto Iyer MD [Primary Care Provider] - Diet/Activity/Treatments Diet: Diet as Tolerated Activity: Weightbearing as tolerated to left leg. Anterior hip precautions. Skin/Wound/Dressing Care Report to your healthcare provider any signs of infection, such as:: chills, fever, night sweats, unusual drainage and unusual redness Dressing: May shower. Leave dressing in place until follow up in office. No bathing or otherwise soaking incision. Call the office if the dressing becomes saturated inside. Visit Report/Discharge Packet Instructions: DI for Hip Replacement, DI for Prescription Opioid Use Stand Alone Forms: Patient Portal/API, Surgery Discharge Discharge Data Primary Care Provider: Gilberto Iyer Attending Provider: Mando Street Quality VTE Deep Vein Thrombosis/Pulmonary Embolism Present on Admission: No
--- NOTE | 2024-06-21 08:32 | PC.NURSE ---
Addendum entered by Ravinder Arizmendi R.N. 06/21/24 11:49: Pt d/c'd to care of . Comfortable with d/c instructions. Surgical site intact, IV d/c'd per protocol. Original Note: Pt alert and oriented, offers no overt c/o pain or issues. surgical intact. Ice machine functioning well. Pedal pulses intact. Pt anticipates d/c today.
[2024-06-21 09:00] VITALS: BP 94/57; PULSE 78; RESP 15; TEMP 36.4; O2SAT 98
[2024-06-21 09:00] LABS: Hematocrit 32.5 % (36-46)
--- NOTE | 2024-06-21 09:40 | PT.IPTN ---
Current Diagnoses Unilateral primary osteoarthritis, left hip (06/20/24) Surgery Performed Operation Date: 06/20/24 07:45 Actual Procedures p Total Hip Arthroplasty/Anterior Approach(Left) - Mando Street MD Physical Therapy Treatment Note M2 PT-IP Current Condition Start: 06/20/24 17:11 Freq: NEEDED Status: Discharge Protocol: Document 06/20/24 15:45 AB (Rec: 06/20/24 17:25 AB [id number]) Physical Therapy Current Condition Current Condition Evaluation Date 06/20/24 Treatment Diagnosis s/p L ROCIO anterior; difficulty in walking Onset Date 06/20/24 M3 PT-IP Subjective Start: 06/20/24 17:11 Freq: NEEDED Status: Discharge Protocol: Document 06/21/24 09:40 AB (Rec: 06/21/24 12:35 AB [id number]) Subjective Physical Therapy Visit Type Type Treatment Note Visit Start Time 09:40 Visit Stop Time 10:25 Number of OXYGEN THERAPY TECHNICIAN Visits 0 Therapy Pain Assessment Pain When Pain Assessed At Rest Pain Present Pain Present Pain Reported Location Left Hip Intensity 4 Scale Used Numeric (0 - 10) Pain Management Techniques Apply Cold,Distraction, Modification of Treatment,Re- positioning,Timing of Activity with Medications M4 PT-IP Mobility and Gait Start: 06/20/24 17:11 Freq: NEEDED Status: Discharge Protocol: Document 06/21/24 09:40 AB (Rec: 06/21/24 12:35 AB [id number]) PT-Bed Mobility Assessment Supine to Sit Supine to Sit Standby Assistance Sit to Supine Sit to Supine Minimal Assistance PT-Transfer Assessment Sit to and From Stand Sit to and from Stand Standby Assistance,Contact Guard Assistance,1 Person Assistance,Use of Upper Extremities Equipment Transfer Assistive Device Gait Belt,Front Wheeled Walker Orthotic/Prosthetic Devices or Brace: No Transfers Transfer Destination Bed Transfer Technique ambulated Transfer Ability Level of Assist Standby Assistance,Contact Guard Assistance,1 Person Assistance,Use of Upper Extremities Comments Mobility Comments pt on the chair and agreed to do PT. spouse in room. BP: 95 /56. caregiver training conducted. educated spouse on how to use safety belt and how to assist pt. spouse was able to put safety belt on. assisted pt with sit to stand CGA and ambulated in room using FWW ~ 50 ft. pt sat on EOB. pt completed sit to supine min A for LE elevation. instructed spouse on how to assist pt. pt completed supine to sit SBA. spouse with a few question: car transfers, DME needs and use: educated pt and spouse regarding car transfers, ADL needs and techniques. spouse also has questions regarding use of lift chair. informed pt and spouse that pt does not need the lift feature of a lift chair and to move as much as possible without use of DME/assistance to progress with mobility. pt and spouse understood. Gait Assessment Gait Gait Assistance Required: Standby Assistance,Contact Guard Assist Distance (Feet) 50 Able to Maintain Weight Bearing Status Yes During Gait Assistive Devices Assistive Device Gait Belt,Front Wheeled Walker Orthotic/Prosthetic Devices or Brace: No Gait Deviations General Gait Pattern Antalgic,Decreased Feet Clearance Factors Limiting Gait Function Factors Limiting Gait Function Decreased Activity Tolerance, Decreased Strength,Limited Range of Motion,Pain,Poor Balance,Poor Safety Awareness M5 PT-IP Objective Assessments Start: 06/20/24 17:11 Freq: NEEDED Status: Discharge Protocol: Document 06/20/24 15:45 AB (Rec: 06/20/24 17:25 AB [id number]) Orientation Orientation/Cognition Level of Alertness Alert Orientation Name,Place,Situation Language Function Ability No Deficits Noted Safety Awareness Decreased Safety Awareness Memory Description Short Term Impaired Gross Range of Motion Lower Extremity ROM Assessment Left Impaired Strength Lower Extremity Strength Assessment Left Impaired Hip 3-/5 Knee 4-/5 Coordination Assessment Gross Coordination Gross Coordination WNL Sensation Assessment Sensation Sensation Description Numbness Comments Sensation Comments R foot numbness chronic Muscle Tone Muscle Tone WNL Yes M6 PT-IP Treatment Start: 06/20/24 17:11 Freq: NEEDED Status: Discharge Protocol: Document 06/21/24 09:40 AB (Rec: 06/21/24 12:35 AB [id number]) Physical Therapy Treatment Education Education Provided Precautions,Safety M7 PT-IP Assessment and Plan Start: 06/20/24 17:11 Freq: NEEDED Status: Discharge Protocol: Document 06/21/24 09:40 AB (Rec: 06/21/24 12:35 [id number]) PT Summary Assessment and Plan Potential Rehabilitation Potential Good Summary Impairments Pain,ROM,Strength,Balance, Coordination,Sensation,Tone, Cognition,Bed Mobility, Transfers,Gait,Activity Tolerance Progress Towards Goals Progressing Toward Goals Assessment Summary pt requiring SBA to CGA with mobility using FWW. pt plans to go home and spouse to assist her. caregiver training completed and spouse was able to assist pt. pt may go home when medically stable . Goals Bed Mobility Goal Independent Transfer Goal Independent,Front Wheeled Walker Gait Goal Independent,Front Wheel Walker Gait Distance 150 Days to Meet Goals 5 Frequency of Treatment Frequency Of Treatment Twice a Day Treatment Plan Physical Therapy Treatment Plan Bed Mobility Training,Transfer Training,Gait Training, Therapeutic Exercise,Balance Retraining,Post Op Education, Discharge Planning,Hot or Cold Pack,Neuromuscular Re-ed, Coordination Retraining,Manual Therapy Precautions Anterior Hip Precautions No Hip Extension,No Hip External Rotation Weight Bearing Status Weight Bearing Status Weight Bear as Tolerated Allowed Weight Bearing Amount (enter % LLE WBAT or #) (%) Recommendations To Nursing Amount of Assist Needed 1 Person Assist Discharge Recommendations PT Discharge Recommendations Home with Assistance, Outpatient PT Transportation Needs at Discharge Private Vehicle
[2024-06-21] MEDS: ASPIRIN EC 81 MG TABLET PO (10:00)
[2024-06-21] MEDS: DOCUSATE 100 MG CAPSULE PO (10:00)
[2024-06-21] MEDS: SERTRALINE 50 MG TABLET PO (10:00)
[2024-06-21] MEDS: buPROPion XL 150 MG TAB 450 MG PO (10:00)
[2024-06-21] MEDS: GABAPENTIN 300 MG CAPSULE 600 MG PO (10:01)
[2024-06-21] MEDS: CELECOXIB 200 MG CAPSULE PO (10:08)
--- NOTE | 2024-06-21 13:01 | CM.DANOTE ---
Patient is 63 y/o f admitted for left ROCIO Anterior. Patient lives at home with support and PT eval clears patient for safe d/c to home, no needs. Did not see patient d/t triage of needs. Discharge Planning/Care Management CM Discharge Assessment Start: 06/21/24 13:00 Freq: Status: Active Protocol: Document 06/21/24 13:00 KG (Rec: 06/21/24 13:01 KG [id number]) Discharge Planning Assessment Assigned Field Assessor Marley Walker DPOA/Assigned Designee Name Lanny Randhawa Advance Directives? Yes Advance Directives on File No History Provided By Patient,Medical Record Has Patient been admitted in last 30 No days? Prior Living Arrangements House Household Members spouse Pre-Anesthesia Assessment Start: 06/13/24 09:55 Freq: Status: Complete Protocol: Document 06/13/24 09:55 LB (Rec: 06/13/24 10:33 LB [id number]) Pre-Anesthesia Assessment Patient Information Reviewed Via Phone Assessment Assessment Completed With Patient Diagnostic Results BMP/CMP,CBC,EKG Primary Care Provider Gilberto Iyer Medical Clearance Received Yes Seen Specialist in Last 12 Months Yes Specialist Seen Orthopedist Primary Language Czech Preferred Language Czech Daily Sales Audit Clerk Required No Height 167.64 cm Weight 70.307 kg Body Mass Index (BMI) 25.0 Hearing Ability Normal Visual Assist Glasses Barriers to Learning None Other Aids No Comment Readers. Hx Anesthesia Reactions No Hx Family Anesthesia Reaction No Hx Malignant Hyperthermia No Hx Blood Transfusions No Anesthesia Review Requested No [employer] Consultant No alcohol intake current alcohol intake frequency holidays/special occasions only Smoking Status Never smoker Comment CBD/THC tincture at night. Pain Present Pain Reported Comment left hip, lower back Musculoskeletal Symptoms Back Pain,Difficulty Walking, Joint Pain History of Falling (Recent or History of Yes ) Comment controlled fall - walking stick gave out. Patient is completely paralyzed or No completely immobile Ambulatory Aid Crutches/cane/walker Prosthesis or Orthotic Device Cane,Front Wheel Walker Mental Status Oriented to own ability Is patient on oxygen? No Does patient have SAVAGE/SOB No CPAP/BIPAP use not prescribed Currently Taking a Beta Raj No Can You Climb a Flight of Stairs Without Yes SOB Hx Chest Pain No Hx SOB No Hx Syncope or Dizziness No Anti-Coagulant Therapy No Has a Housecalls Nurse No Cardiac Testing Yes: EKG 05/08/24 Cardiac Clearance Received Not Applicable Dysphagia No Genitourinary Symptoms Dribbling, Post-void Diabetes No HgbA1C 4.9 Date 05/08/24 Patient No Lactating No Hx Drug Resistant Organism No Presence of External or Internal Medical bilat IOL, back and neck Devices hardware. Have you had any close contact with No someone diagnosed with COVID-19? Are you experiencing any of these No symptoms symptoms? Received a COVID vaccine? Yes Received all doses? Yes Marital Status Lives With spouse Current Living Arrangements House Number of Floors (Floors) One Floor Number of Stairs To Enter/Railing? No stairs. Support System Spouse Does the Patient Have Assistance After Yes Surgery Patient Discharge Plan Description Return Home Comment Advised overnight LOS. Health Care Proxy/Next of Kin Isaías Erazo - Health Care Proxy Emergency Contact Name Jada Armijo - sister Emergency Contact Advance Directives? Yes Advance Directives on File No Requested Patient Bring Advanced Yes Directives DOS Power of Mechanical Handyman Yes Power of Mechanical Handyman Name Isaías Erazo - Power of Mechanical Handyman PAC Instructions Durable medical equipment, Medications to take/avoid,No ETOH/petroleum product on skin DOS,NPO,Post-op transportation,Pre-surgical wash,Sturdy shoes/comfortable clothes,Do not bring valuables and remove jewelry
== END 2024-06-21 11:48 | disposition home or self-care (01) ==
LOC: OR 06:16 → AC 06:16
PROVIDERS: Family Provider Family Medicine; PCP Family Medicine; Referring Provider Family Medicine; Visit Provider Orthopaedic Surgery Adult Reconstructive Orthopaedic Surgery
PROC: (CPT 27130; principal; 2024-06-20 07:45)
DX: M16.12 Unilateral primary osteoarthritis, left hip (principal)
CPT/HCPCS: 27130; 36415; 73502; 76000; 85014; 85018; 97162; 97530; C1776; A9270; J0690; J1171; J2250; J2405; J2704; J3010

== ENCOUNTER → 2024-08-07 17:17 | Outpatient (CLI) | payer OTHER, SELFPAY ==
[2024-06-20 11:19] VITALS: BMI 30.9
[2024-08-07 17:42] LABS: Add Manual Diff / Slide Review NO; Basophils Absolute Auto 0 /uL (0-100); Basophils Percent Auto 0.7 % (0-2); Eosinophils Absolute Auto 100 /uL (0-450); Eosinophils Percent Auto 2.5 % (2-4); Hematocrit 37.6 % (36-46); Hemoglobin 12.1 g/dL (12.0-16.0); Lymphocytes Absolute Auto 1400 /uL (1100-4500); Lymphocytes Percent Auto 26.7 % (25-40); Mean Corpuscular HGB Conc 32.3 % (30-36); Mean Corpuscular Volume 89.8 fL (80-100); Monocytes Absolute Auto 500 /uL (0-900); Monocytes Percent Auto 9.1 % (3-14); Neutrophils Absolute Auto 3200 /uL (1500-7000); Platelet Count 278 X10^3/uL (150-400); Red Blood Cell Count 4.19 X10^6/uL (4.0-5.2); Red Cell Distribution Width 15.1 % (11.6-14.8); White Blood Cell Count 5.2 X10^3/uL (4.5-11.0)
[2024-08-07 17:57] LABS: Albumin 4.5 g/dL (3.5-5.0); BUN Creatinine Ratio 38.2 (6-22); Blood Urea Nitrogen 26 mg/dL (7-17); Calcium 9.5 mg/dL (8.4-10.2); Carbon Dioxide 28 mmol/L (22-32); Chloride 106 mmol/L (98-107); Estimated Glomerular Filt Rate > 60 mL/min (>60); Glucose 85 mg/dL (80-110); HEMOLYSIS < 15 (0-50); Potassium 4.3 mmol/L (3.4-5.1); Sodium 140 mmol/L (137-145)
[2024-08-07 18:05] LABS: Prealbumin 28.9 mg/dL (17.6-36.0)
== END ==
LOC: LAB 17:19
PROVIDERS: Family Provider Family Medicine; PCP Family Medicine; Referring Provider Orthopaedic Surgery Adult Reconstructive Orthopaedic Surgery; Visit Provider Orthopaedic Surgery Adult Reconstructive Orthopaedic Surgery
DX: Z01.812 Encounter for preprocedural laboratory examination (principal); R77.0 Abnormality of albumin; E55.9 Vitamin D deficiency, unspecified; R73.9 Hyperglycemia, unspecified
CPT/HCPCS: 36415; 80048; 82040; 82306; 83036; 84134; 85025

== ENCOUNTER 2024-10-10 10:49 | Day surgery (SDC) | payer OTHER, SELFPAY ==
[2024-06-20 11:19] VITALS: BMI 30.9
[2024-10-06 13:31] VITALS: BMI 25.8
[2024-10-10] VITALS (12 sets, daily range): BP systolic 106–163; BP diastolic 66–80; PULSE 62–87; RESP 14–20; TEMP 35.8–37.4; O2SAT 96–100; BMI 24.7
--- NOTE | 2024-10-10 | DI.RAD.S_ITS ---
PROCEDURE: XR HIP W PEL IF DONE LT 2V INDICATIONS: LT HIP SURGERY TECHNIQUE: Fluoroscopic guidance utilized for a left hip arthroplasty COMPARISON: None. FINDINGS: Fluoroscopic images submitted for a left hip arthroplasty placement. Please see operative note for further discussion. IMPRESSION: Fluoroscopic guidance. Dictated by: Stan Deluna M.D. on 10/10/2024 at 16:58 Approved by: Stan Deluna M.D. on 10/10/2024 at 16:58
--- NOTE | 2024-10-10 06:00 | DI.RAD.S_ITS ---
PROCEDURE: XR HIP W PEL IF DONE RT 2V INDICATIONS: right ROCIO TECHNIQUE: AP pelvis and lateral view of the hip acquired. COMPARISON: [facility], [place], XR HIP W PEL IF DONE LT 2V, 10/10/2024, 13:58. [facility], [place], XR HIP W PEL IF DONE LT 2V, 06/20/2024, 9:48. FINDINGS: Bones: Patient is status post right hip arthroplasty, with hardware components in expected positions. The hip joint appears congruent. The visualized bony structures appear intact. Soft tissues: Overlying postoperative changes are noted. No suspicious soft tissue densities. IMPRESSION: Expected post-operative appearance of a hip arthroplasty. Dictated by: Stan Deluna M.D. on 10/10/2024 at 16:59 Approved by: Stan Deluna M.D. on 10/10/2024 at 16:59
[2024-10-10] MEDS: LACTATED RINGERS 1,000 ML 42 ML IV (11:33)
--- NOTE | 2024-10-10 12:31 | PM.PREOP ---
Pre-operative Note Interval Note History & Physical reviewed/Exam performed by Physician: Yes Changes to H&P: No
[2024-10-10] MEDS: ROPIVACAINE/EPI/CLONIDINE/KET 50 ML SYRINGE INJ (13:10)
[2024-10-10] MEDS: CEFAZOLIN 2 GM/100 ML PREMIX 100 ML IV ×2 (13:10→20:34)
--- NOTE | 2024-10-10 13:12 | SUR.OPER ---
Supine on padded Velva table with bilateral legs secured in padded positioning boots and suspended in positioning spars, operative leg in traction per surgeon. Head on one pillow. Arm on non-operative side secured on padded armboard <90 degrees abduction. Arm on operative side padded and resting across chest then secured with tape over sheet. Padded perineal post in place per surgeon.
[2024-10-10] MEDS: TRANEXAMIC ACID 1,000 MG VIAL 2000 MG INJ ×2 (13:51→14:54)
--- NOTE | 2024-10-10 15:03 | P.OP_ITS ---
Operative Date/Time/Diagnoses Date of procedure: 10/10/24 Pre-op diagnosis: Right hip osteoarthritis Post-op diagnosis: same Procedure & Clinicians Procedure: Right total hip arthroplasty Same procedure as scheduled: Yes Surgeon: Mando Street Mannequin Decorator: Morena Gilbert Anesthesia Type: General, Spinal and Local Operative Notes Estimated Blood Loss (mL): 300 Procedure in detail: Right Uncemented Direct Anterior Depuy Total Hip Arthroplasty: Implants: * Stetson Bimentum size 53 cup? * Actis femoral stem size 5 high offset? * 28 mm +5 ceramic femoral head? * 28/53 dual mobility liner Procedure Summary: This 61-year-old female patient has a history of a extensive spinal fusion. She had previously undergone a left total hip arthroplasty with the during which procedure I used a mono block dual mobility cup. She returned today for the 2nd side. I used the same size cup and stem. A high offset stem and a larger head size were utilized for today's procedure, likely attributable to higher reaming depth then had been performed on the contralateral side. Final fluoroscopy indicated that the ending leg length and offset were equivalent between the 2 sides. She had no instability with maximum external rotation past 120? and no instability with a 45 degree drop test. Her previous cup had been placed at 45? of abduction according to postoperative radiographs and I attempted to replicate this same positioning on the 2nd side today during cup placement. Procedure in Detail: This patient was seen preoperatively and evaluated for hip pain which was refractory to numerous nonoperative treatment modalities. Their hip pain correlated with radiographic changes demonstrating significant degeneration in the hip joint. The risks and benefits of continued nonoperative management versus operative management were discussed at length and all of the patient?s questions were answered. Additional educational materials providing further details beyond our discussion in clinic were provided via a publicly available patient education video which included the incidence of medical complications associated with total hip arthroplasty, reasons for revision following total hip arthroplasty, and patient satisfaction rates following total hip arthroplasty. That video can be accessed at [email or web address] . With this understanding of the risks inherent to the procedure, the patient elected to move forward with operative management. Following preoperative optimization, the patient was scheduled for surgery. The patient was met in the preoperative holding area the day of the procedure and all questions were answered. The patient?s nares were swabbed with betadine in order to decolonize them from MRSA. Informed consent was signed and the right limb was marked with indelible ink.? The patient was brought back to the operating room where anesthesia was induced. The patient was transferred to the [place] table and all bony prominences were padded. The operative site was prepped and draped in the usual sterile fashion. Prior to incision, tranexamic acid and cefazolin were administered. Operative templating images were displayed demonstrating the anticipated implant sizes and correct operative extremity. A timeout procedure was performed verifying the patient?s identity, medical comorbidities, allergies, relevant medications, anesthesia type and the surgical plan. All present were in agreement. The assistance of a physician assistant shift supervisor was required for positioning, room setup, soft tissue retraction and wound closure. Without this assistance, the procedure would have been significantly more challenging and time consuming.?? A direct anterior approach to the hip was utilized. This was performed with a longitudinal incision through a Heuter interval. The incision was planned 2 cm distal and 2 cm lateral to the ASIS extending towards the lateral patella, in line with the muscle body of the TFL. Following incision, the subcutaneous tissue was dissected while taking care to avoid injury to the lateral femoral cutaneous nerve. The fascia overlying the TFL was identified by dissecting off the overlying fat and identifying perforating vessels to the TFL. The TFL fascia was incised and dissected away from the medial border of the TFL. A cobra retractor was placed over the superior femoral neck between the abductors and the hip capsule and used to reflect the TFL laterally. A [place] self-retainer was then placed in the distal aspect of the wound between the TFL and the rectus femoris. This was tensioned to open up the direct anterior interval and the lateral circumflex vessels were identified and coagulated using electrocautery. The floor of the TFL fascia was incised, exposing the pericapsular fat overlying the hip capsule. A second cobra retractor was placed on the inferior femoral neck. A double-bent soft tissue retractor was placed on the anterior wall of the acetabulum and used to tension the reflected head of rectus femoris, which was then released in order to limit soft tissue tension. A capsulotomy was made in the midline of the anterior hip capsule in line with the femoral neck ending at the vastus tubercle. The double-bent retractor was removed in order to limit the amount of time that a soft tissue retractor remained on the anterior wall and protect the femoral nerve. Tag stitches were placed in the superior and inferior leaflets of the hip capsule. An [place] soft tissue retractor was introduced over the tag stitches and tensioned in the interval between the rectus femoris and the TFL in order to retract and protect those muscles. The cobra retractors were replaced intracapsularly, with one over the superior neck in the pocket created by the base of the greater trochanter and the other on the femoral head. The capsulotomy was extended laterally to the base of the greater trochanter and medially to the lesser trochanter. This required externally rotating the hip. Once the lesser trochanter had been identified, a neck cut was planned according to measurements from preoperative templating. A ruler was cut at the length measured between the superior aspect of the lesser trochanter and the collar of the prosthesis. This line was extended towards the inferior aspect of the lateral cobra retractor to plan a cut which would leave minimal residual femoral neck laterally. The neck was cut at 60 degrees of external rotation along that line. A second cut was performed to remove a large napkin ring and facilitate head extraction. The napkin ring cut and femoral head were removed.?? A broad anterior wall retractor was placed between the labrum and the anterior capsule so that the anterior capsule would prevent capturing and pinching the femoral nerve anteriorly. An additional retractor was placed on the posterior wall. External rotation and traction were applied through the [place] table so that the cut surface of the femoral neck would not restrict access to the acetabulum. The labrum was excised sharply and the pulvinar was excised with electrocautery to limit bleeding from branches of the obturator artery. Acetabular reamers were selected based on preoperative templating and measurements of the excised femoral head. These were introduced into the acetabulum. Fluoroscopy was utilized to replicate a standing AP pelvis radiograph by centering over the pelvis, rotating until there was appropriate symmetry between the obturator foramen, and introducing caudal tilt to match the position of the pubic symphysis relative to the sacrococcygeal junction according to the patient?s anatomy. Fluoroscopy was utilized to ensure appropriate reaming depth. Once satisfied with the reaming depth corresponding to the preoperative template and the pinch fit between the columns, an appropriate sized acetabular cup was selected which would provide 1 mm of press-fit. This cup was introduced and manipulated until appropriate abduction and anteversion angles were obtained with careful attention to appropriate abduction and anteversion angles as evaluated by the position of the cup relative to the anterior and posterior robles of the acetabulum and the AP fluoroscopy which recreated the patient?s standing radiograph. The cup was impacted into place. Peripheral osteophytes were removed. No acetabular liner was necessary during this procedure as it was a mono block cup Attention was then turned to the femur. All retractors were removed, traction was released, a retractor was placed in the interval between the hip capsule and the gluteus minimus, and the hip was externally rotated to 90 degrees. Traction was applied through the [place] table to tension the lateral capsule and this was released using electrocautery. Traction was released and a [place] hook was placed posteriorly around the proximal femur at the level of the vastus ridge. The table height was lowered in order to restrict the tension on the anterior structures during hip hyperextension to limit the risk of femoral nerve palsy. With traction off and the hip at 90 degrees of external rotation, the hip was hyperextended and adducted while manually elevating the femur away from the acetabulum with the [place] hook to ensure it would not be caught behind the greater trochanter. An asymmetric retractor was placed over the calcar and a b road double-pronged retractor was placed over the greater trochanter. The tag stitch capturing the lateral leaflet of the capsule was moved to the medial side, leaving the conjoined and piriformis tendons isolated in the face of the greater trochanter. The hip was externally rotated and elevated. A release of the conjoined tendon was not necessary in order to obtain adequate exposure for broaching. The canal was opened with an opening broach and a rasp was used to remove cancellous bone. A rongeur was used to remove the residual lateral bone at the base of the greater trochanter to avoid placing the stem in varus. The femur was then broached to the appropriate sized stem yielding good rotational fit and fill of the canal as well as appropriate version of the stem trial. Neck and head trials were placed, all retractors were removed and the hip was returned to neutral abduction and extension. I then reduced the hip. Initial trialing was performed with a size 5 broach, a standard offset neck and a +5 head. I initially manually externally rotated the hip and found that there was instability, so I upsized to a +8.5 head. There was still instability with a +8.5 head. An AP pelvis fluoroscopic image matching the preoperative standing radiograph with both lesser trochanters visible and both hips in 40 degrees of external rotation demonstrated leg lengths grossly equivalent to the c ontralateral side but diminished offset. AP and lateral hip fluoroscopic images were obtained to evaluate the broach size which demonstrated complete canal fill. The hip was dislocated and I returned to the broaching position. Based on my evaluation during initial trialing I planned to transition to a high offset stem. I came down across again and placed that trial neck as well as the original trial head, the +8.5 head, and returned for additional trialing. There was now appropriate stability. I could maximally externally rotate the hip without any dislocation. A 45 degree drop test was stable. AP pelvis images indicated improved offset as compared to prior with maintenance of leg lengths. I therefore returned to the broaching position and planned to place these definitive implants. The definitive stem was placed and the trunnion was cleaned and dried. I placed a ceramic head onto the trunnion and impacted it into place on the Ortiz taper.?? All retractors were removed and the hip was reduced. A dilute mixture of betadine and peroxide was used to bathe the soft tissues during final fluoroscopic assessment. Appropriate component positioning was confirmed on an AP pelvis radiograph with the operative and nonoperative legs in 40 degrees of external rotation, evaluating leg length and offset. Appropriate stem fill was evaluated on AP and lateral hip radiographs. No fractures were identified on these radiographs. There was no hip instability with maximum (120?) external rotation as well as a 45 degree drop test. The hip was copiously irrigated with pulse lavage. The capsule was closed with absorbable interrupted suture. The TFL fascia was closed with barbed suture while carefully protecting the lateral femoral cutaneous nerve from entrapment. A mixture of Ropivacaine, Epinephrine, Clonidine and Toradol was infiltrated throughout the soft tissues. The skin was closed with 2-0 and 3-0 sutures. Surgical glue was applied and a soft dressing was placed.??The sponge, instrument and needle counts were reported as being correct at the end of the case.??No obvious complications occurred. The patient was transferred from the [place] table back to a stretcher. The patient emerged from anesthesia without difficulty and was taken to the PACU in a stable condition.? Plan for aftercare: * Anterior hip precautions * Weightbearing as tolerated * Aspirin 81 twice per day for DVT prophylaxis * Anticipate discharge home tomorrow * Change into normal clothes upon arrival on the hospital floor * Mobilize in the halls as much as is logistically possible. If physical therapy is unavailable for mobilization, then patient should mobilize with nursing staff * Multimodal pain regimen with no IV opioids ordered * Apply ice machine to operative hip. Ensure that sufficient ice is in the chamber for the pad to remain cold * Follow up at [facility] in 2 weeks * Detailed postoperative instructions available at [email or web address]
[2024-10-10] MEDS: fentaNYL 100 MCG/2 ML INJ IV ×2 (15:36→15:41)
[2024-10-10] MEDS: HYDROMORPHONE 1 MG INJ IV ×3 (15:39→15:46)
[2024-10-10] MEDS: ACETAMINOPHEN IV 1,000 MG/100 ML VIAL 400 MG IV (15:49)
[2024-10-10] MEDS: KETOROLAC 30 MG/ML VIAL IM (15:50)
[2024-10-10] MEDS: OXYCODONE IR 5 MG TABLET PO (15:55)
[2024-10-10] MEDS: hydrOXYzine 50 MG/ML INJ 25 MG IM (16:02)
[2024-10-10] MEDS: HYDROMORPHONE 0.5 MG INJ IV (16:51)
[2024-10-10] MEDS: ACETAMINOPHEN 325 MG TABLET 650 MG PO ×2 (16:59→22:25)
[2024-10-10] MEDS: IBUPROFEN 600 MG TABLET PO ×2 (17:00→22:26)
[2024-10-10] MEDS: LACTATED RINGERS 1,000 ML 100 ML IV (17:29)
[2024-10-10] MEDS: OXYCODONE IR 10 MG TABLET PO (18:39)
[2024-10-10] MEDS: DOCUSATE 100 MG CAPSULE PO (20:34)
[2024-10-10] MEDS: CELECOXIB 200 MG CAPSULE PO (20:34)
[2024-10-10] MEDS: GABAPENTIN 300 MG CAPSULE 600 MG PO (20:34)
[2024-10-10] MEDS: ASPIRIN EC 81 MG TABLET PO (20:34)
[2024-10-11] MEDS: OXYCODONE IR 5 MG TABLET PO ×2 (03:45→04:39)
[2024-10-11] MEDS: IBUPROFEN 600 MG TABLET PO ×2 (04:35→10:16)
[2024-10-11] MEDS: ACETAMINOPHEN 325 MG TABLET 650 MG PO ×2 (04:37→10:15)
[2024-10-11] MEDS: CEFAZOLIN 2 GM/100 ML PREMIX 100 ML IV (04:40)
[2024-10-11 05:18] LABS: Hematocrit 29.8 % (36-46); Hemoglobin 9.9 g/dL (12.0-16.0)
[2024-10-11] MEDS: SERTRALINE 50 MG TABLET PO (08:34)
[2024-10-11] MEDS: DOCUSATE 100 MG CAPSULE PO (08:34)
[2024-10-11] MEDS: CELECOXIB 200 MG CAPSULE PO (08:35)
[2024-10-11] MEDS: ASPIRIN EC 81 MG TABLET PO (08:35)
[2024-10-11] MEDS: buPROPion XL 150 MG TAB 450 MG PO (08:35)
[2024-10-11] MEDS: SODIUM CHLORIDE 0.9% FLUSH 10 ML IV (08:36)
--- NOTE | 2024-10-11 11:00 | PM.DS.1 ---
History of Present Illness History of Present Illness Chief complaint: R ROCIO *OPB* Narrative: Lanny is a pleasant 63-year-old female who is POD#1 s/p right anterior total hip arthroplasty by Dr. Street. This morning she reports she is doing well and is hoping to discharge later today. She has not worked with PT yet today but has been up several times to use the bathroom, she is urinating well without issue. She reports pain is mild at rest but moderate-severe with activity. She lives at home with her who is willing and able to aid in her postop care. They have 0 steps into the house. She has walker and cane at home, she has an ice machine at home. She states she has her postop pain medication already. She has postop physical therapy appointments scheduled at [place] [facility] [place]. Discharge Providers Provider Discharge Date: 10/11/24 Primary care physician: Gilberto Iyer MD Consults: 10/10/24 06:00 Consult to Anesthesiology Routine Comment: Consulting Provider: Anesthesiologist Reason for consultation: Regional block for post operative pain control 10/10/24 16:39 Consult to Discharge Planning Routine Comment: Consult to Physical Therapy Evaluate & Treat Comment: Physician Instructions: post op ROCIO protocol Discharge provider: Berenice Contreras PA-C Summary Hospital Course Discharge Diagnosis: Stable status post right anterior total hip arthroplasty Hospital Course: Uncomplicated hospital course Exam Vital Signs (past 8 hours): Oxygen Delivery Method Room Air Oxygen Flow Rate 0 Narrative Exam Narrative: Patient lying comfortably in bed during our interview today. No acute distress. AOx3. 5/5 strength with DF, PF, EHL bilaterally. Gross sensation intact throughout bilateral lower extremities. There is a small area of numbness inferior to the right hip incision site. Calves soft and non-tender bilaterally. SCDs are on and functioning. Brisk capillary refill. Post-surgical Aquacel dressing clean, dry and intact over the right hip without drainage. Resp Effort & Inspection: normal respiratory effort and able to speak in complete sentences Objective Labs 10/11/24 04:17 Labs: Laboratory Results - last 24 hr 10/11/24 04:17 Hgb 9.9 L Hct 29.8 L PFSH Medical History (Updated 06/13/24 @ 10:19 by Yuki Becerra RN) ADHD Depression Osteoarthritis Surgical History (Updated 10/06/24 @ 13:38 by Jessika Goyal RN) History of total left hip replacement (06/20/24) H/O cervical spine surgery (10/23/15) Hx of tonsillectomy H/O spinal fusion (05/2024) Cataract extraction status (2020) Social History household members: spouse Smoking Status: Never smoker alcohol intake: current Discharge Assessment & Plan Assessment and Plan Assessment: Stable status post right anterior total hip arthroplasty Plan of Treatment: 1) Plan to discharge to home today with pending PT evaluation. 2) Continue multimodal pain management with ice to the hip for additional pain control. 3) ASA b.i.d. for DVT prophylaxis. 4) Start outpatient physical therapy to work on range of motion and mobility. Weightbearing as tolerated, maintain anterior hip precautions. 5) Keep dressing intact, clean, dry until 2 week postop appointment. No soaking the incision site in pools or tubs. No topical ointments or creams to the incision site. 6) Follow up at [facility] orthopedics in 2 weeks for a postop appointment and wound check. All the patient and her husbands questions were answered, they demonstrates understanding and are in agreement with the plan. Call our office if any questions or concerns arise. Discharge Plan Discharge Plan Patient Disposition: Home Provider Discharge Comment: Detailed postoperative instructions available at [email or web address] Discharge orders & Medications Discharge Orders: Discharge (Order); Ordered 10/11/24 Ordered By: Berenice Contreras Prescriptions: New acetaminophen 325 mg Tablet 650 mg PO Q6H Qty: 90 0RF aspirin 81 mg Tablet,Delayed Release (Dr/Ec) 81 mg PO BID Qty: 90 0RF docusate sodium 100 mg Capsule 100 mg PO BID Qty: 30 0RF ondansetron 4 mg Tablet,Disintegrating 4 mg PO Q4HR PRN (Reason: Nausea) Qty: 10 0RF oxycodone 5 mg Tablet 5 mg PO Q4-6H PRN (Reason: Pain, Moderate (4-6)) Qty: 25 0RF Continued methylphenidate HCl [Concerta] 36 MG tablet extended release 24hr 2 tab PO QAM Qty: 0 bupropion HCl [Wellbutrin XL] 150 MG tablet extended release 24 hr 450 tab PO QAM Qty: 0 celecoxib 200 mg capsule 200 mg PO BID methylphenidate HCl [Ritalin] 5 mg tablet 5 mg PO DAILY PRN (Reason: break through ADHD) gabapentin 300 mg capsule 600 mg PO BID sertraline 50 mg tablet 50 mg PO DAILY Discontinued acetaminophen 650 mg Tablet Extended Release 1,300 mg PO Q12H Follow up/Referrals: Mando Street MD [Physician] - 10/23/24 2:30 pm (Follow up w/ Anselmo Sun PA-C, at [facility] in [place].) Gilberto Iyer MD [Primary Care Provider] - Diet/Activity/Treatments Diet: Diet as Tolerated Activity: Weightbearing as tolerated to right leg. Anterior hip precautions. Cold/Heat Therapy: Ice to hip as needed for pain control. Skin/Wound/Dressing Care Report to your healthcare provider any signs of infection, such as:: chills, fever, night sweats, unusual drainage and unusual redness Dressing: May shower. Leave dressing in place until follow up in office. No bathing or otherwise soaking incision. Call the office if the dressing becomes saturated inside. Visit Report/Discharge Packet Instructions: DI for Hip Replacement, DI for Prescription Opioid Use Stand Alone Forms: Patient Portal/API, Surgery Discharge Discharge Data Primary Care Provider: Gilberto Iyer Attending Provider: Mando Street
--- NOTE | 2024-10-11 11:20 | PT.IIE ---
Current Diagnoses Unilateral primary osteoarthritis, right hip (10/10/24) Surgery Performed Operation Date: 10/10/24 12:45 Actual Procedures p Total Hip Arthroplasty/Anterior Approach(Right) - [address] MD Surgical History (Last Updated 10/06/24 @ 13:38 by Jessika Goyal, SINAN) Cataract extraction status (2020) H/O cervical spine surgery (10/23/15) H/O spinal fusion (05/2024) History of total left hip replacement (06/20/24) Hx of tonsillectomy Medical History (Last Updated 06/13/24 @ 10:19 by Yuki Becerra, SINAN) ADHD Depression Osteoarthritis Physical Therapy Inpatient Evaluation/Re-Eval M1 PT/OT-IP Prior Functional Status Start: 10/11/24 13:33 Freq: NEEDED Status: Active Protocol: Document 10/11/24 11:20 AB (Rec: 10/11/24 13:47 AB [id number]) Medical Review Prior Functional Status Medical History Reviewed Yes Communication able to make needs known Mobility and Gait pt stated that she was modified independent with all mobilities and ambulation using a SPC Social History Household Members spouse Living Arrangements House Number of Floors (Floors) One Floor Number of Stairs To Enter/Railing? no steps to enter Home Environment High Toilet,Walk in Shower Home Equipment Front Wheel Walker,Straight Cane,Raised Toilet Seat w/ Armrests,Shower Seat with Backrest,Hand Held Shower,Grab Bars In Shower Additional Social History Comment pt has R side bed rails M2 PT-IP Current Condition Start: 10/11/24 13:33 Freq: NEEDED Status: Active Protocol: Document 10/11/24 11:20 AB (Rec: 10/11/24 13:47 AB [id number]) Physical Therapy Current Condition Current Condition Evaluation Date 10/11/24 Treatment Diagnosis s/p R ROCIO anterior; difficulties in walking Onset Date 10/10/24 M3 PT-IP Subjective Start: 10/11/24 13:33 Freq: NEEDED Status: Active Protocol: Document 10/11/24 11:20 AB (Rec: 10/11/24 13:47 AB [id number]) Subjective Physical Therapy Visit Type Type Initial Evaluation Visit Start Time 11:20 Visit Stop Time 12:00 Number of WORD PROCESSOR OPERATOR Visits 0 Physical Therapy Visit Comments Patient Comments agreeable to do PT Therapy Pain Assessment Pain When Pain Assessed At Rest Pain Present Pain Present Pain Reported Location Right hip Intensity 4 Scale Used Numeric (0 - 10) Pain Behaviors Facial Grimacing,Guarding Pain Management Techniques Apply Cold,Distraction, Modification of Treatment, Timing of Activity with Medications M4 PT-IP Mobility and Gait Start: 10/11/24 13:33 Freq: NEEDED Status: Active Protocol: Document 10/11/24 11:20 AB (Rec: 10/11/24 13:47 AB [id number]) PT-Bed Mobility Assessment Supine to Sit Supine to Sit Minimal Assistance PT-Transfer Assessment Sit to and From Stand Sit to and from Stand Contact Guard Assistance,1 Person Assistance,Use of Upper Extremities Equipment Transfer Assistive Device Gait Belt,Front Wheeled Walker Orthotic/Prosthetic Devices or Brace: No Transfers Transfer Destination Toilet Transfer Technique ambulated Transfer Ability Level of Assist Contact Guard Assistance,1 Person Assistance,Use of Upper Extremities Comments Mobility Comments pt supine in bed and agreeable to do PT. spouse in room with pt. obtained PLOF and home set up. post-op folder provided. reviewed anterior hip precautions with pt. BP: 103/44. pt completed supine to sit min A for RLE mobility. pt able to sit on EOB SBA. no c/o dizziness. pt requested to use the toilet. sit to stand from EOB CGA and ambulated to the toilet using FWW CGA ~ 12 ft. pt completed toileting SBA. sit to stand from the toilet CGA using grab bar. pt ambulated to the chair using FWW CGA. BP checked: 114/72. caregiver training conducted. educated spouse on how to use safety belt and how to assist pt. spouse assisted pt with sit to stand from the chair and ambulation using fWW ~ 50 ft CGA. pt sat back on chair. positioned pt on the chair. call light and table placed within reach. pt and spouse without further concerns. Gait Assessment Gait Gait Assistance Required: Contact Guard Assist Distance (Feet) 50 Able to Maintain Weight Bearing Status Yes During Gait Assistive Devices Assistive Device Gait Belt,Front Wheeled Walker Orthotic/Prosthetic Devices or Brace: No Gait Deviations General Gait Pattern Antalgic Factors Limiting Gait Function Factors Limiting Gait Function Decreased Activity Tolerance, Decreased Strength,Limited Range of Motion,Pain,Poor Balance,Poor Safety Awareness PT-Balance Assessment Sitting Balance and Reactions Static Sitting Balance Ability Normal Dynamic Sitting Balance Ability Normal Standing Balance and Reactions Static Standing Balance Ability Good Dynamic Standing Balance Ability Fair Device Used FWW M5 PT-IP Objective Assessments Start: 10/11/24 13:33 Freq: NEEDED Status: Active Protocol: Document 10/11/24 11:20 AB (Rec: 10/11/24 13:47 AB [id number]) Orientation Orientation/Cognition Level of Alertness Alert Orientation Name,Place,Situation Language Function Ability No Deficits Noted Safety Awareness Understands Safety Issues Memory Description No Deficits Noted Gross Range of Motion Lower Extremity ROM Assessment Within Functional Limits Strength Lower Extremity Strength Assessment Right Impaired Hip 3-/5 Knee 4/5 Coordination Assessment Gross Coordination Gross Coordination WNL Sensation Assessment Sensation Gross Sensation Right LE Impaired Sensation Description Numbness Comments Sensation Comments slight anterior R thigh numbness per pt Muscle Tone Muscle Tone WNL Yes M6 PT-IP Treatment Start: 10/11/24 13:33 Freq: NEEDED Status: Active Protocol: Document 10/11/24 11:20 AB (Rec: 10/11/24 13:47 AB [id number]) Physical Therapy Treatment Exercises Exercises Heel Slides Education Education Provided Precautions,Weight Bearing Status,Post-Op Packet,Safety M7 PT-IP Assessment and Plan Start: 10/11/24 13:33 Freq: NEEDED Status: Active Protocol: Document 10/11/24 11:20 AB (Rec: 10/11/24 13:47 AB [id number]) PT Summary Assessment and Plan Potential Rehabilitation Potential Fair Status of Condition at Evaluation Stable Summary Impairments Pain,ROM,Strength,Balance, Coordination,Sensation,Tone, Cognition,Bed Mobility, Transfers,Gait,Activity Tolerance Assessment Summary pt is a 63 y/o F s/p R ROCIO anterior approach POD 1. pt has R hip anterior precautions and is WBAT. pt requiring min A for bed mobility and CGA with ambulation using FWW. caregiver training conducted and spouse was able to safely assist pt. pt plans to go home and has outpt PT setup. Goals Bed Mobility Goal Independent Transfer Goal Independent,Front Wheeled Walker Gait Goal Independent,Front Wheel Walker Gait Distance 300 Days to Meet Goals 5 Frequency of Treatment Frequency Of Treatment Twice a Day Treatment Plan Physical Therapy Treatment Plan Bed Mobility Training,Transfer Training,Gait Training, Therapeutic Exercise,Balance Retraining,Post Op Education, Discharge Planning,Hot or Cold Pack,Neuromuscular Re-ed, Coordination Retraining,Manual Therapy Precautions Anterior Hip Precautions No Hip Extension,No Hip External Rotation Weight Bearing Status Weight Bearing Status Weight Bear as Tolerated Allowed Weight Bearing Amount (enter % RLE WBAT or #) (%) Recommendations To Nursing Amount of Assist Needed 1 Person Assist Discharge Recommendations PT Discharge Recommendations Home with Assistance, Outpatient PT Transportation Needs at Discharge Private Vehicle
--- NOTE | 2024-10-11 14:57 | PC.NURSE ---
D/c instructions reviewed with pt and her spouse. Discussed use of narcotics including no driving while taking them and using OTC stool softeners to prevent constipation. Pt agreeable to d/c today. IV removed. Pt exited via w/c with spouse and MITER GRINDER OPERATOR to private vehicle.
== END 2024-10-11 13:20 | disposition home or self-care (01) ==
LOC: OR 10:50 → AC 10:51
PROVIDERS: Family Provider Family Medicine; PCP Family Medicine; Referring Provider Family Medicine; Visit Provider Orthopaedic Surgery Adult Reconstructive Orthopaedic Surgery
PROC: (CPT 27130; principal; 2024-10-10 12:45)
DX: M16.11 Unilateral primary osteoarthritis, right hip (principal); F32.A Depression, unspecified; Z98.1 Arthrodesis status; Z96.642 Presence of left artificial hip joint
CPT/HCPCS: 27130; 36415; 73502; 76000; 85014; 85018; 97161; 97530; C1776; J0131; J0690; J1100; J1171; J1885; J2250; J2704; J3010; J3410

== ENCOUNTER → 2025-02-06 19:37 | Outpatient (CLI) | payer OTHER, SELFPAY ==
[2024-10-10 17:05] VITALS: BMI 24.7
--- NOTE | 2025-02-06 19:39 | DI.MRI.S_ITS ---
PROCEDURE: MR LUMBAR SPINE WO CON INDICATIONS: spinal stenosis TECHNIQUE: Noncontrast sagittal T1 spin echo and T2 fast echo, sagittal STIR, and T2 fast spin echo through the lumbar spine. In cases with scoliosis, additional coronal T2 fast spin echo may be performed. COMPARISON: [facility], MR, MR LUMBAR SPINE WO/W CON, 02/22/2024, 19:34. [facility], CR, XR LUMBAR SPINE 2 OR 3 VIEWS, 11/26/2024, 9:34. [facility], MR, MR LUMBAR SPINE WO CON, 07/30/2020, 13:16. FINDINGS: Image quality: Degraded by metallic artifact Alignment and Curvature: The same numbering system used on the prior examination will be used on the current examination. 4 mm of retrolisthesis of L1 on L2. 2 mm of retrolisthesis of L2 on L3. 3 mm of anterolisthesis of L4 on L5. Bone Marrow: Marrow is of normal overall signal. No acute vertebral body compression fractures. Posterior fusion hardware at L2-S1, as before. Moderate reactive signal within the endplates adjacent to the T12-L1 and L1-L2 intervertebral discs. Mild reactive signal within the remaining lumbar and lower thoracic endplates. Spinal Cord: Conus medullaris terminates at the L1 level. Visualized cord demonstrates normal signal and size. Paraspinous Soft Tissues: No paravertebral masses. Left parapelvic renal cysts are present as before. T12-L1: Moderate disc height loss and desiccation. Mild diffuse disc bulge. Mild bilateral facet hypertrophy. Mild canal stenosis. Mild bilateral foraminal stenosis. L1-L2: Moderate disc height loss and desiccation. Moderate diffuse disc bulge. Mild facet and ligamentum flavum hypertrophy. Mild canal stenosis. Mild bilateral foraminal stenosis. No significant change. L2-L3: Posterior fusion. Moderate disc height loss and desiccation. Mild bilateral facet hypertrophy. Mild canal stenosis. Mild bilateral foraminal stenosis. No significant change. L3-L4: Posterior fusion. Moderate disc desiccation. Mild bilateral facet hypertrophy. No significant canal stenosis. Mild bilateral foraminal stenosis. No significant change. L4-L5: Posterior fusion. Moderate disc desiccation. Mild bilateral facet hypertrophy. Mild canal stenosis. Mild bilateral foraminal stenosis. No significant change. L5-S1: Posterior fusion. Moderate disc desiccation. Moderate bilateral facet hypertrophy. Mild canal stenosis. Moderate bilateral foraminal stenosis. No significant change IMPRESSION: 1. Stable postsurgical sequelae. 2. Multilevel degenerative disc and facet disease, as well as ligamentum flavum hypertrophy and epidural lipomatosis. 3. Mild multilevel canal stenoses. 4. Mild and moderate multilevel foraminal stenoses. Dictated by: Felton Mehta M.D. on 02/10/2025 at 12:28 Approved by: Felton Mehta M.D. on 02/10/2025 at 12:32
== END ==
PROVIDERS: Family Provider Family Medicine; PCP Family Medicine; Referring Provider Family Medicine; Visit Provider Family Medicine
DX: M51.369 Other intervertebral disc degeneration, lumbar region without mention of lumbar back pain or lower extremity pain (principal); M51.379 Other intervertebral disc degeneration, lumbosacral region without mention of lumbar back pain or lower extremity pain; M48.062 Spinal stenosis, lumbar region with neurogenic claudication; M48.07 Spinal stenosis, lumbosacral region; M47.816 Spondylosis without myelopathy or radiculopathy, lumbar region; M47.817 Spondylosis without myelopathy or radiculopathy, lumbosacral region
CPT/HCPCS: 72148

== ENCOUNTER → 2025-07-07 15:58 | Outpatient (ROUT) | payer OTHER, SELFPAY ==
[2024-10-10 17:05] VITALS: BMI 24.7
[2025-07-07 16:48] LABS: Influenza A - CEPHEID Flu A NEGATIVE (NEGATIVE); Influenza B - CEPHEID Flu B NEGATIVE (NEGATIVE)
[2025-07-07 16:56] LABS: COVID-19 CEPHEID 4-PLEX PCR Negative (Negative)
== END ==
PROVIDERS: Family Provider Family Medicine; PCP Family Medicine; Visit Provider Family Medicine
DX: R05.1 Acute cough (principal)
CPT/HCPCS: 87637